=== PATIENT | male | born 1940 | race Caucasian/White ===

== ENCOUNTER 2020-03-15 10:27 | Outpatient (REF) | payer MEDICARE, SELFPAY ==
[2020-03-15 13:13] LABS: Alanine Aminotransferase 28 U/L (0-40); Albumin Level 4.3 g/dL (3.5-5.0); Alkaline Phosphatase 104 U/L (39-117); Anion Gap 17 (12-20); Aspartate Amino Transferase 25 U/L (5-37); Bilirubin Total 1.3 mg/dL (0.0-1.0); Blood Urea Nitrogen 22 mg/dL (9-16); Calcium 8.4 mg/dL (8.4-10.2); Carbon Dioxide 21 mmol/L (22-29); Chloride 106 mmol/L (96-108); Cholesterol 155 mg/dL; Estimated Glomerular Filt Rate > 60; Glucose Fasting 141 mg/dL (60-99); HDL Cholesterol 41 mg/dL; LDL Cholesterol Calculated 94 mg/dl; Potassium 4.1 mmol/l (3.3-5.1); Sodium 140 mmol/L (135-145); Total Protein 6.5 g/dL (6.5-8.0); Triglycerides 103 mg/dL
[2020-03-15 13:15] LABS: Microalbum/Creatinine Ratio Ur 17.4 ug/mg cr
[2020-03-15 13:17] LABS: Estimated Average Glucose 143 mg/dL; Hemoglobin A1c % 6.6 %
== END 2020-03-15 10:28 | disposition home or self-care (01) ==
LOC: HO.MANLR 10:27
PROVIDERS: PCP Internal Medicine; Visit Provider Internal Medicine
DX: E78.00 Pure hypercholesterolemia, unspecified (principal); I10 Essential (primary) hypertension; E11.9 Type 2 diabetes mellitus without complications
CPT/HCPCS: 80053; 80061; 82043; 83036

== ENCOUNTER 2020-07-20 11:31 | Outpatient (REF) | payer MEDICARE, SELFPAY ==
[2020-07-20 14:12] LABS: Estimated Average Glucose 151 mg/dL; Hemoglobin A1c % 6.9 %
== END 2020-07-20 11:32 | disposition home or self-care (01) ==
LOC: HO.MANLR 11:31
PROVIDERS: PCP Internal Medicine; Visit Provider Internal Medicine
DX: E78.00 Pure hypercholesterolemia, unspecified (principal); I10 Essential (primary) hypertension; E11.9 Type 2 diabetes mellitus without complications
CPT/HCPCS: 36415; 83036

== ENCOUNTER 2020-12-06 15:04 | Outpatient (REF) | payer MEDICARE, SELFPAY ==
[2020-12-06 16:55] LABS: Estimated Average Glucose 148 mg/dL; Hemoglobin A1c % 6.8 %
== END 2020-12-06 15:05 | disposition home or self-care (01) ==
LOC: HO.MANLDS 15:04
PROVIDERS: PCP Internal Medicine; Visit Provider Internal Medicine
DX: E78.00 Pure hypercholesterolemia, unspecified (principal); I10 Essential (primary) hypertension; E11.9 Type 2 diabetes mellitus without complications
CPT/HCPCS: 36415; 83036

== ENCOUNTER 2021-04-27 16:01 | Outpatient (REF) | payer MEDICARE, SELFPAY ==
[2021-04-27 18:47] LABS: Estimated Average Glucose 157 mg/dL; Hemoglobin A1c % 7.1 %
== END 2021-04-27 16:02 | disposition home or self-care (01) ==
LOC: HO.MANLDS 16:01
PROVIDERS: PCP Internal Medicine; Visit Provider Internal Medicine
DX: E78.00 Pure hypercholesterolemia, unspecified (principal); I10 Essential (primary) hypertension; E11.9 Type 2 diabetes mellitus without complications
CPT/HCPCS: 36415; 83036

== ENCOUNTER 2021-08-01 15:01 | Outpatient (REF) | payer MEDICARE, SELFPAY ==
[2021-08-01 17:34] LABS: Estimated Average Glucose 148 mg/dL; Hemoglobin A1c % 6.8 %
== END 2021-08-01 15:02 | disposition home or self-care (01) ==
LOC: HO.MANLDS 15:01
PROVIDERS: PCP Internal Medicine; Visit Provider Internal Medicine
DX: E11.9 Type 2 diabetes mellitus without complications (principal)
CPT/HCPCS: 36415; 83036

== ENCOUNTER 2021-12-12 14:37 | Outpatient (REF) | payer MEDICARE, SELFPAY ==
[2021-12-13 05:20] LABS: Estimated Average Glucose 146 mg/dL; Hemoglobin A1c % 6.7 %
== END 2021-12-12 14:38 | disposition home or self-care (01) ==
LOC: HO.MANLDS 14:37
PROVIDERS: Visit Provider Internal Medicine
DX: E11.9 Type 2 diabetes mellitus without complications (principal)
CPT/HCPCS: 36415; 83036

== ENCOUNTER 2022-04-24 14:13 | Outpatient (REF) | payer MEDICARE, SELFPAY ==
[2022-04-24 20:47] LABS: Alanine Aminotransferase 19 U/L (0-40); Albumin Level 4.5 g/dL (3.5-5.0); Alkaline Phosphatase 100 U/L (39-117); Anion Gap 13 (12-20); Aspartate Amino Transferase 23 U/L (5-37); Bilirubin Total 1.4 mg/dL (0.0-1.0); Blood Urea Nitrogen 15 mg/dL (9-16); Calcium 9.5 mg/dL (8.4-10.2); Carbon Dioxide 20 mmol/L (22-29); Chloride 113 mmol/L (96-108); Cholesterol 168 mg/dL; Estimated Glomerular Filt Rate > 60; Glucose Random 56 mg/dL (60-115); HDL Cholesterol 43 mg/dL; LDL Cholesterol Calculated 104 mg/dl; Potassium 4.9 mmol/L (3.3-5.1); Sodium 141 mmol/L (135-145); Total Protein 6.8 g/dL (6.5-8.0); Triglycerides 106 mg/dL
[2022-04-25 08:04] LABS: Estimated Average Glucose 134 mg/dL; Hemoglobin A1c % 6.3 %
== END 2022-04-24 14:14 | disposition home or self-care (01) ==
LOC: HO.MANLDS 14:13
PROVIDERS: Visit Provider Internal Medicine
DX: E11.9 Type 2 diabetes mellitus without complications (principal)
CPT/HCPCS: 36415; 80053; 80061; 83036

== ENCOUNTER 2022-07-24 10:32 | Outpatient (REF) | payer MEDICARE, SELFPAY ==
[2022-07-24 14:17] LABS: Estimated Average Glucose 134 mg/dL; Hemoglobin A1c % 6.3 %
== END 2022-07-24 10:33 | disposition home or self-care (01) ==
LOC: HO.MANLDS 10:32
PROVIDERS: Visit Provider Internal Medicine
DX: E11.9 Type 2 diabetes mellitus without complications (principal)
CPT/HCPCS: 36415; 83036

== ENCOUNTER 2022-11-27 10:59 | Outpatient (REF) | payer MEDICARE, SELFPAY ==
[2022-11-27 14:22] LABS: Estimated Average Glucose 128 mg/dL; Hemoglobin A1c % 6.1 %
[2022-11-27 14:35] LABS: Alanine Aminotransferase 13 U/L (0-40); Albumin Level 4.4 g/dL (3.5-5.0); Alkaline Phosphatase 84 U/L (39-117); Anion Gap 14 (12-20); Aspartate Amino Transferase 18 U/L (5-37); Bilirubin Total 1.3 mg/dL (0.0-1.0); Blood Urea Nitrogen 13 mg/dL (9-16); Calcium 9.5 mg/dL (8.4-10.2); Carbon Dioxide 22 mmol/L (22-29); Chloride 111 mmol/L (96-108); Cholesterol 171 mg/dL; Estimated Glomerular Filt Rate > 60; Glucose Random 63 mg/dL (60-115); HDL Cholesterol 50 mg/dL; LDL Cholesterol Calculated 104 mg/dl; Potassium 4.6 mmol/L (3.3-5.1); Sodium 142 mmol/L (135-145); Total Protein 6.9 g/dL (6.5-8.0); Triglycerides 89 mg/dL
== END 2022-11-27 11:00 | disposition home or self-care (01) ==
LOC: HO.MANLDS 10:59
PROVIDERS: Internal Medicine; Visit Provider Dermatology Procedural Dermatology
DX: E11.9 Type 2 diabetes mellitus without complications (principal)
CPT/HCPCS: 36415; 80053; 80061; 83036

== ENCOUNTER 2023-05-15 10:16 | Outpatient (REF) | payer MEDICARE, SELFPAY ==
[2023-05-15 13:22] LABS: MANUAL DIFF FLAG NO
[2023-05-15 13:30] LABS: Basophils Percent Auto 0.6 % (0-2); Eosinophils Absolute Auto 0.1 X10*3/uL (0.0-0.4); Eosinophils Percent Auto 1.9 % (0-4); Hematocrit 50.9 % (42.0-52.0); Hemoglobin 16.2 g/dl (14.0-18.0); Imm Gran Abs Auto 0.02 X10*3/uL (0.00-0.03); Imm Gran Pct Auto 0.3 % (0.0-0.4); Lymphocytes Percent Auto 31.7 % (20-40); Mean Corpuscular HGB Conc 31.8 g/dl (31.0-36.0); Mean Corpuscular Hemoglobin 30.3 pg (27.0-33.0); Mean Corpuscular Volume 95.1 fL (80.0-98.0); Mean Platelet Volume 11.2 fL (9.4-12.4); Monocytes Absolute Auto 0.4 X10*3/uL (0.1-1.2); Neutrophils Absolute Auto 3.7 x10*3/uL (2.0-8.3); Neutrophils Percent Auto 58.5 % (45-73); Platelet Count 219 X10*3/uL (160-400); Red Blood Count 5.35 X10*6/uL (4.60-5.80); White Blood Count 6.3 X10*3/uL (4.8-10.8)
[2023-05-15 14:00] LABS: Estimated Average Glucose 128 mg/dL; Hemoglobin A1c % 6.1 % (<6.0)
[2023-05-15 14:01] LABS: Alanine Aminotransferase 14 U/L (0-40); Albumin Level 4.3 g/dL (3.5-5.0); Alkaline Phosphatase 89 U/L (39-117); Anion Gap 15 (12-20); Aspartate Amino Transferase 19 U/L (5-37); Bilirubin Total 1.1 mg/dL (0.0-1.0); Blood Urea Nitrogen 14 mg/dL (9-16); Calcium 9.6 mg/dL (8.4-10.2); Carbon Dioxide 25 mmol/L (22-29); Chloride 105 mmol/L (96-108); Cholesterol 181 mg/dL (<200); Estimated Glomerular Filt Rate > 60; Glucose Random 136 mg/dL (60-115); HDL Cholesterol 53 mg/dL (>40); LDL Cholesterol Calculated 109 mg/dL (<100); Potassium 4.6 mmol/L (3.3-5.1); Sodium 140 mmol/L (135-145); Total Protein 7.2 g/dL (6.5-8.0); Triglycerides 98 mg/dL (<150)
[2023-05-15 14:29] LABS: Creatinine Urine 286.89 mg/dL; Microalbum/Creatinine Ratio Ur 36.9 ug/mg cr (<30)
== END 2023-05-15 10:17 | disposition home or self-care (01) ==
LOC: HO.MANLDS 10:16
PROVIDERS: Visit Provider Internal Medicine
DX: E11.9 Type 2 diabetes mellitus without complications (principal)
CPT/HCPCS: 36415; 80053; 80061; 82043; 82570; 83036; 85025

== ENCOUNTER 2023-10-13 22:36 | Inpatient (IN) | payer MEDICARE, SELFPAY ==
--- NOTE | ~2023-10-13 | CT_ITS ---
EXAMINATION: CT angio head neck stroke CLINICAL INFORMATION: Right facial droop, right-sided weakness COMPARISON: CT head same day TECHNIQUE: Test bolus sequences followed by intravenous administration 75 mL of Omnipaque 350. Helical imaging was performed in the axial plane from the mediastinum to the skull vertex. Delayed postcontrast imaging of the head was also performed. The data was processed at the medical technologist hematology's workstation for generation of MIP sequences. Three-dimensional volume rendered reformatted images were also generated at an offline 3-D workstation. Arterial stenoses are measured in accordance with NASCET criteria or similar method if applicable. This CT examination was performed using dose optimization techniques as appropriate, variously including the following: * Automated exposure control * Adjustment of mA and/or kV according to patient size (this includes techniques or standardized protocols for targeted exams where dose is matched to indication/reason for exam; i.e. extremities or head) Use of iterative reconstruction technique DLP: 1501 mGy-cm. FINDINGS: Motion artifact severely limits the exam. CT head: There is no evidence of acute intracranial hemorrhage or territorial infarction. There is no loss of montez to white matter differentiation. No abnormal mass effect or midline shift is seen. No extra-axial fluid collections are identified. There is no abnormal enhancement. No hydrocephalus. The cerebellar tonsils are well positioned. No acute osseous or soft tissue abnormality. The mastoid air cells and visualized portions of the paranasal sinuses are well aerated. CTA neck: 2 vessel aortic arch with common origin of the brachiocephalic and left common carotid artery. The origins of the great vessels are normal. The common carotid arteries are patent. Evaluation of the carotid bifurcations is limited by motion artifact. Calcified plaque is noted at both bifurcations. The cervical internal carotid arteries are normal. The visualized vertebral arteries opacify normally and are of normal caliber. Evaluation of the left vertebral artery is severely limited by motion artifact at multiple levels. Nonvascular: The soft tissues of the neck are unremarkable. The imaged portions of the lungs are clear. Heterogeneous thyroid. Mild multilevel cervical spondylosis. CTA head: Cavernous ICAs: Scattered atherosclerotic calcifications without significant stenosis on either side. A1 segments, anterior communicating artery, and A2 segments: Patent without significant stenosis. M1 segments and major MCA branches: Bilateral M1 segments are patent without significant stenosis. P1, P2 and proximal P3 segments of the payment processor: Patent without significant stenosis. Intracranial vertebral arteries, cerebellar arteries and basilar artery: Patent without significant stenosis. CT/CT angio head neck stroke IMPRESSION: HEAD CT: No acute intracranial hemorrhage or edematous infarction. CTA HEAD/NECK: 1. No high-grade stenosis or proximal occlusion of the vasculature of the head and neck. 2. Evaluation of the cervical arteries is severely limited by motion artifact.
--- NOTE | ~2023-10-13 | XR_ITS ---
EXAMINATION: XR CHEST CLINICAL INFORMATION: Pacemaker. COMPARISON: Chest x-ray 10/13/2023. TECHNIQUE: Frontal view of the chest was obtained. FINDINGS: New left subclavian pacer with leads in the region of the right ventricle and right atrium. The cardiomediastinal silhouette is stable. Hypoexpanded lungs. No consolidation, effusion, or pneumothorax. XR/XR chest 1V IMPRESSION: Left subclavian pacer. No pneumothorax.
--- NOTE | ~2023-10-13 | CT_ITS ---
EXAMINATION: CT HEAD WITHOUT CONTRAST CLINICAL INFORMATION: Headache. Venous sinus thrombosis on recent imaging. COMPARISON: MRI dated 10/14/[address] from 10/13/2023. TECHNIQUE: Contiguous axial imaging was performed from the skullbase to vertex without intravenous administration of contrast. This CT examination was performed using dose optimization techniques as appropriate, variously including the following: *Automated exposure control *Adjustment of mA and/or kV according to patient size (this includes techniques or standardized protocols for targeted exams where dose is matched to indication/reason for exam; i.e. extremities or head) *Use of iterative reconstruction technique DLP: 611 mGy-cm. FINDINGS: There is no evidence of acute intracranial hemorrhage or territorial infarction. No abnormal mass effect or midline shift is seen. No extra-axial fluid collections are identified. Low-attenuation in the central portion of the superior sagittal sinus and right sigmoid venous sinus corresponding to areas of previously reported venous sinus thrombosis. Moderate diffuse brain parenchymal volume loss with ex vacuo dilatation of the ventricles is stable. Chronic white matter microangiopathy again noted. The osseous structures and soft tissues are normal. The mastoid air cells are well aerated. Calcification and soft tissue density in the dependent left sphenoid sinus corresponds to chronic sinus disease, described on prior imaging. Given low T2 signal soft tissue abnormality and intrasinus calcification, an underlying small mycetoma cannot be ruled out. CT/CT head/brain wo IV con IMPRESSION: No acute intracranial hemorrhage or territorial infarction. Partially visualized venous thrombosis, better assessed on prior imaging. Diffuse brain parenchymal volume loss and chronic white matter microangiopathy. Chronic left sphenoid sinus mucosal disease.
--- NOTE | ~2023-10-13 | US_ITS ---
EXAMINATION: US ABDOMEN LIMITED CLINICAL INFORMATION: Elevated bilirubin and alkaline phosphatase. COMPARISON: None available. TECHNIQUE: Real-time imaging of the right upper quadrant abdominal viscera. Technically extremely limited study secondary to body habitus and uncooperative patient. FINDINGS: PANCREAS: Not visualized, obscured by overlying bowel gas. LIVER: The liver is normal in size. The liver contour is normal. There is diffuse increased liver parenchymal echogenicity, consistent with infiltrative hepatocellular disease. No focal hepatic lesion. There is no intrahepatic biliary duct dilatation seen. GALLBLADDER: The gallbladder is physiologically distended with irregular mass like echogenic sludge, favored to represent tumefactive sludge. No wall thickening or pericholecystic fluid. Negative sonographic Chahal sign. COMMON BILE DUCT: Not seen. RIGHT KIDNEY: No hydronephrosis or renal calculi. The kidney measures 9.6 cm in maximum dimension. Middle pole exophytic anechoic cyst measuring 1 x 0.8 x 1 cm with a coarse peripheral calcification. Additional cysts seen. FREE FLUID: None. US/US abdomen limited IMPRESSION: 1. Echogenic mass like material within the gallbladder, favored to represent tumefactive sludge. No sonographic evidence of acute cholecystitis. 2. 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
--- NOTE | ~2023-10-13 | CT_ITS ---
EXAMINATION: CT HEAD WITHOUT CONTRAST (STROKE PROTOCOL) CLINICAL INFORMATION: Stroke protocol. Right facial droop, right-sided weakness rule out COMPARISON: None available. TECHNIQUE: Contiguous axial imaging was performed from the skull base to vertex without intravenous administration of contrast. This CT examination was performed using dose optimization techniques as appropriate, variously including the following: *Automated exposure control *Adjustment of mA and/or kV according to patient size (this includes techniques or standardized protocols for targeted exams where dose is matched to indication/reason for exam; i.e. extremities or head) *Use of iterative reconstruction technique DLP: 1372 mGy-cm FINDINGS: Evaluation is limited by motion artifact. There is no evidence of acute intracranial hemorrhage or territorial infarction. Thomas to white matter differentiation is well preserved. No abnormal mass effect or midline shift is seen. No extra-axial fluid collections are identified. No hydrocephalus. Left basal ganglia lacunar infarct. Proportional prominence of the ventricles and sulcal spaces is consistent with moderate volume loss. Patchy periventricular and deep white matter hypoattenuation is consistent with mild small vessel ischemic changes. The cerebellar tonsils are well positioned. No acute osseous or soft tissue abnormality. Bilateral lens extraction. The mastoid air cells and visualized portions of the paranasal sinuses are well aerated. CT/CT head for stroke IMPRESSION: 1. Evaluation is limited by motion artifact. 2. No acute intracranial hemorrhage or territorial infarction. These results were discussed with Kuldeep Noe MD by telephone on 10/13/2023 at 11:02 PM and it was ascertained that the content of the report was understood at the time of direct communication.
--- NOTE | ~2023-10-13 | XR_ITS ---
EXAMINATION: XR PORTABLE CHEST CLINICAL INFORMATION: Altered mental status. Rule out pneumonia. COMPARISON: None. TECHNIQUE: AP portable upright view of the chest FINDINGS: Lung volumes are low. EKG leads overlie the chest. Minimal dependent atelectasis. No consolidation, pneumothorax, or pleural effusion. Cardiac and mediastinal contours are normal. Pulmonary vasculature is unremarkable. No acute osseous findings. Bones are osteopenic. Degenerative disc disease is present in the thoracic spine. Osteoarthritis is present in the acromioclavicular and glenohumeral joints. XR/XR chest 1V IMPRESSION: Low lung volumes with mild dependent atelectasis. No acute pulmonary findings.
--- NOTE | ~2023-10-13 | FL_ITS ---
EXAMINATION: XR FLUOROSCOPY WITH IMAGES CLINICAL INFORMATION: Pacemaker insertion COMPARISON: PA chest 10/13/2023, 10/19/2023 TECHNIQUE: Fluoroscopy Supervised By: Dr. Itz Moran Fluoroscopy Time: 8.9 minutes. Cumulative Dose: 95.4 mGy. DAP: 25.6 Gycm2. Images: 1. FINDINGS: A single frontal image of the heart demonstrate the tip of leads in the region of the right atrium and right ventricle. Please see procedure note for full details. FL/FL guidance in OR IMPRESSION: Fluoroscopic guidance was provided for pacemaker insertion. Please see procedure note for full details.
--- NOTE | ~2023-10-13 | MR_ITS ---
MR BRAIN WITHOUT CONTRAST CLINICAL INFORMATION: Stroke symptoms. COMPARISON: CTA head and neck and head CT 10/13/2023. TECHNIQUE: MRI of the brain was obtained using routine sequences without contrast. FINDINGS: Possible small acute infarct involving the left precentral gyrus near the hand region. No mass effect and no hemorrhagic transformation. There is no hydrocephalus, extra-axial surface collection, or herniation. No parenchymal signal abnormality. Extensive cerebral venous thrombosis involving the superior sagittal sinus, the torcula, the right transverse sinus, the medial most aspect of the left transverse sinus, the right sigmoid sinus, the right jugular bulb, and extending into the upper right cervical internal jugular vein again noted as discussed in detail on the 10/13/2023 CTA. Better seen on this MRI is an additional thrombosed cortical vein at the high right parietal convexity. 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 The midline structures are normal. The cerebellar tonsils are normally positioned. The cerebellum and brainstem are normal. The craniocervical junction is normal. Osseous marrow signal intensity is homogenous. The visualized soft tissues are unremarkable. MR/MR head/brain wo con IMPRESSION: - Possible small acute infarct involving the left precentral gyrus near the hand region. No mass effect and no hemorrhagic transformation. - Extensive cerebral venous thrombosis involving the superior sagittal sinus, the torcula, the right transverse sinus, the medial most aspect of the left transverse sinus, the right sigmoid sinus, the right jugular bulb, and extending into the upper right cervical internal jugular vein again noted as discussed in detail on the 10/13/2023 CTA. Better seen on this MRI is an additional thrombosed cortical vein at the high right parietal convexity. 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 - There is global cerebral volume loss and there is moderate chronic microangiopathy.
--- NOTE | 2023-10-13 22:43 | ECG_ITS ---
Test Reason : STROKE Blood Pressure : / mmHG Vent. Rate : 113 BPM Atrial Rate : 000 BPM P-R Int : 000 ms QRS Dur : 068 ms QT Int : 318 ms P-R-T Axes : 000 063 064 degrees QTc Int : 436 ms Atrial fibrillation with rapid ventricular response ST & T wave abnormality, consider anterolateral ischemia Abnormal ECG No previous ECGs available Referred By: Kuldeep Noe Electronically Signed By:RONAK HADDAD
--- NOTE | 2023-10-13 23:02 | ED.NEUROSD ---
HPI - Neuro Symptoms/Deficit General Stated Complaint: stroke alert Time Seen by Provider: 10/13/23 22:41 Source: patient and EMS Mode of arrival: EMS Limitations: other (Dysarthric speech) History of Present Illness ED Provider: Dr. Kuldeep Noe HPI Narrative: 83-year-old male with history of diabetes mellitus, hypertension, pulmonary emboli on warfarin, gallbladder disease who presents emergency department for altered level of consciousness. The information comes from the patient's daughter Suze and his granddaughter Rachel who are here in the emergency department with the patient. The patient was seen yesterday at [facility] for altered mental status. Following information was obtained from his after visit summary: He was hypoglycemic, there was no urinary tract infection, ultrasound showed stones and sludge in the gallbladder but no evidence for no sonographic evidence for acute cholecystitis. The family states that he got home from [facility] emergency department at around 20:00 hours yesterday and this is his last well-known time. Patient may have gotten up at 02:00 hours this morning to urinate but otherwise stayed in bed all day and was very somnolent. The patient lives with his son who was not here in the emergency department. Patient was apparently on arousable so the son called an ambulance paramedics found the patient have a glucose of 45. Patient was given glucagon 1 mg IM. An IV was established he was given a bolus of D10 IV. On presentation to the emergency department the patient is awake, he has dysarthric speech, right facial droop and right upper and lower extremity weakness which is new. Patient was sent directly to CT scan for stroke protocol, CT scan head without contrast and CT angiogram head and neck. Related Data Allergies Allergy/AdvReac Type Severity Reaction Status Date / Time Unable to Assess Allergy Verified 10/13/23 23:43 Review of Systems Review of Systems: Yes all other systems are reviewed and are negative [facility] Past Medical History [facility] Narrative: Social history: The patient lives at home with his son. According to his family he is normally awake alert has normal speech with no neurologic deficits. Physical Exam Vital Signs: Exam: General: Patient is awake, he has dysarthric speech but it is comprehensible, has an obvious right facial droop and right upper and lower extremity weakness Head: Normocephalic, atraumatic EENT: PERRL, Lids normal, sclera normal, conjunctiva normal, nose normal , ears normal, throat without erythema or exudates Neck: Supple, no adenopathy Lung: breath sounds symmetric, no wheezing, rales or rhonchi Chest: symmetric movement, nontender Heart: regular rate and rhythm, normal S1, S2 no murmurs or rubs Abdomen: Moderate suprapubic tenderness, distended bladder, no right upper quadrant tenderness, normoactive bowel sounds, no rebound Back: no vertebral tenderness, no CVAT Neuro: Awake, dysarthric speech, right facial droop, right upper and lower extremity weakness with minimal movement against gravity Medical Decision Making Medical Decision Making MDM Narrative: 83-year-old male with history of diabetes mellitus, hypertension, pulmonary emboli on warfarin, gallbladder disease who presents emergency department for altered level of consciousness. The patient was seen yesterday [facility] for hypoglycemia and had a right upper quadrant ultrasound which revealed sludge and stones but no evidence for cholecystitis family states the patient needs his gallbladder out and has been having difficulty with his gallbladder since 09/23/2023. Patient's last well-known time was 20:00 hours last night. Throughout the day today he was sleeping and never got out of bed. Prior to transport to the emergency department he was unarousable and paramedics found his glucose to be 45, he was given glucagon and D10 IV. The patient is awake, oriented to person and place, he has dysarthric speech, right facial droop, right upper extremity and right lower extremity which, according to the family, is new. Vital signs revealed an elevated heart rate of 114 otherwise unremarkable. Differential diagnosis: ?Includes but is not limited to stroke, cerebral bleed, hypoglycemia, electrolyte abnormalities, anemia Following evaluation was ordered: CBC, BMP, liver panel, magnesium, PT/INR, PTT, TSH, troponin, ethanol, urinalysis, CT head, CT angiogram head and neck, chest x-ray one view, EKG Course: 00:14 My interpretation patient's laboratory evaluation as follows: WBC elevated 13,000 with a left shift 88 neutrophils and 6 lymphocytes. The patient's INR is 1.3 which is subtherapeutic-he is on warfarin. Patient's 12 EKG is consistent with atrial fibrillation with a rapid ventricular response of 113, he does have inverted T-waves V3 through V6 with no old EKG for comparison One-view chest x-ray was unremarkable. CT scan of the brain revealed no acute findings and I did discuss this with the radiologist. This patient is not a thrombolytics candidate since his last well-known time was greater than 4 hours and he is also on warfarin. Also the patient's last well-known time was 20:00 hours yesterday and this is outside of the 24 hour window for clot retrieval. I did discuss admission with the covering hospitalist, Dr. Suazo. Admission/Observation Consideration of admission/observation: Escalation of care including admission/observation considered Consult Healthcare Provider Management of the patient was discussed with: Hospitalist Independent Interpretation I performed an independent interpretation of an: EKG Interpretation: My independent interpretation patient's 12 EKG done at 23:47 hours is as follows: Atrial fibrillation with a ventricular rate of 113, no ST segment elevation, no ST segment depression, inverted T-waves V3 through V6-no old EKG for comparison Radiology Impression Discussion of test interpretation with radiology: I have reviewed the radiologist's reading. Radiologist Impression: CT head for stroke IMPRESSION: 1. Evaluation is limited by motion artifact. 2. No acute intracranial hemorrhage or territorial infarction. These results were discussed with Kuldeep Noe MD by telephone on 10/13/2023 at 11:02 PM and it was ascertained that the content of the report was understood at the time of direct communication. Dictated By: Kavita Barnard Independent Historian Clinical information obtained from an independent historian. History obtained from or confirmed by: Other (Daughter and granddaughter) External Record Review External record reviewed: Outpatient record Chronic Conditions Patient?s care impacted by: Diabetes and Hypertension Critical Care Time Critical Care Time Critical Care Time: Yes Total Critical Care Time: 45 Attestation: Critical Care: The patient was critically ill with a high probability of imminent or life threatening deterioration. I spent greater than 30 minutes of discontinuous time evaluating the patient,delivering critical care at the bedside, discussing and evaluating pertinent data with consultants. Critical care time does not include time spent performing separately billable procedures or teaching. Total time spent performing critical care was 45 minutes. Discharge Plan Discharge Patient Disposition: Admitted As Inpatient Print Language: Setswana
[2023-10-13 23:41] VITALS: BP 139/86; PULSE 114; RESP 20; TEMP 36.5; O2SAT 100; BMI 23.7
[2023-10-13 23:44] LABS: MANUAL DIFF FLAG NO
[2023-10-13 23:48] LABS: Basophils Percent Auto 0.2 % (0-2); Eosinophils Percent Auto 0.1 % (0-4); Hematocrit 47.6 % (42.0-52.0); Hemoglobin 16.2 g/dl (14.0-18.0); Imm Gran Abs Auto 0.05 X10*3/uL (0.00-0.03); Imm Gran Pct Auto 0.4 % (0.0-0.4); Lymphocytes Absolute Auto 0.8 X10*3/uL (1.2-4.9); Mean Corpuscular Hemoglobin 30.9 pg (27.0-33.0); Mean Corpuscular Volume 90.8 fL (80.0-98.0); Mean Platelet Volume 10.7 fL (9.4-12.4); Monocytes Absolute Auto 0.6 X10*3/uL (0.1-1.2); Monocytes Percent Auto 4.6 % (2-11); Neutrophils Absolute Auto 11.5 x10*3/uL (2.0-8.3); Neutrophils Percent Auto 88.7 % (45-73); Platelet Count 282 X10*3/uL (160-400); Red Blood Count 5.24 X10*6/uL (4.60-5.80); Red Cell Distribution Width 13.4 % (11.0-16.0)
[2023-10-13 23:53] LABS: INTERNATIONAL NORM RATIO 1.3 (0.9-1.1); Prothrombin Time 15.9 SEC (11.1-13.3)
[2023-10-13 23:56] LABS: Partial Thromboplastin Time 30.5 SEC (26.0-36.8)
[2023-10-13 23:58] LABS: Stroke Lab Use COMPLETE
[2023-10-14] VITALS (8 sets, daily range): BP systolic 110–161; BP diastolic 67–87; PULSE 58–108; RESP 18–20; TEMP 36.1–37.5; O2SAT 95–99; BMI 24.3
[2023-10-14 00:04] LABS: Glucose, Whole Blood 84 mg/dL (60-115)
[2023-10-14 00:19] LABS: Troponin-I High Sensitivity 10.9 ng/L (<3.5-35.0)
[2023-10-14 00:25] LABS: Alanine Aminotransferase 23 U/L (0-40); Albumin Level 4.1 g/dL (3.5-5.0); Alkaline Phosphatase 131 U/L (39-117); Anion Gap 16 (12-20); Aspartate Amino Transferase 28 U/L (5-37); Bilirubin Direct 0.6 mg/dL (0.0-0.5); Bilirubin Total 1.6 mg/dL (0.0-1.0); Blood Urea Nitrogen 25 mg/dL (9-16); Calcium 9.7 mg/dL (8.4-10.2); Carbon Dioxide 18 mmol/L (22-29); Chloride 107 mmol/L (96-108); Creatinine Clr Calc Pharmacy 43.1; Estimated Glomerular Filt Rate > 60; Ethanol < 10 mg/dL; Glucose Random 103 mg/dL (60-115); Magnesium 2.2 mg/dL (1.6-2.6); Potassium 4.6 mmol/L (3.3-5.1); Sodium 136 mmol/L (135-145)
[2023-10-14] MEDS: 0.9 % Sodium Chloride 1,000 ML 999 ML IV (00:27)
[2023-10-14 00:35] LABS: Appearance Urine Clear; Color Urine Yellow; Glucose Urine UA Negative (Negative); Leukocyte Esterase Urine Negative (Negative); Nitrite Urine Negative (Negative); PH 6.5 (5.0-9.0); Specific Gravity - Urine >= 1.030 (1.005-1.025); UMIC TRIGGER UACC YES; Urine Blood Small (1+) (Negative); Urine Ketones 15 mg/dL (Negative); Urine Protein Trace mg/dL (Neg-Trace)
[2023-10-14 00:40] LABS: Thyroid Stimulating Hormone < 0.01 uIU/mL (0.32-4.0)
[2023-10-14 00:42] LABS: Bacteria Urine None Seen (None Seen); Hyaline Casts Urine 0-2 /LPF (0-2); Squamous Epithelial Cell Urine 0-2 /HPF (0-2); WBC Urine 0-5 /HPF (0-5)
[2023-10-14 02:01] LABS: Glucose, Whole Blood 73 mg/dL (60-115)
[2023-10-14] MEDS: LORazepam 2 MG/ML VIAL 1 MG IVPUSH (02:09)
[2023-10-14] MEDS: Dextrose 5 % and 0.9 % NaCl 1,000 ML 80 ML IVCONT (02:16)
[2023-10-14 03:31] LABS: Glucose, Whole Blood 88 mg/dL (60-115)
[2023-10-14] MEDS: Valproic Acid (as Sodium Salt) 250 MG in Dextrose 5 % 50 ML 52.5 MG IV (04:33)
[2023-10-14] MEDS: Pantoprazole Sodium 40 MG/10 ML VIAL IVPUSH (05:23)
--- NOTE | 2023-10-14 05:54 | PM.IMHP ---
History of Present Illness Date of Service: 10/14/23 Attending physician on admission: Placido Howe Chief Complaint: Right sided weakness, speech difficulty Ferny Barron is 83 years old man with past medical history significant for type 2 diabetes mellitus on insulin + glipizide pulmonary embolism on Xarelto and essential hypertension was brought to the emergency department via EMS as a stroke alert. Patient was found have a glucose of 45 received treatment with deep 10 and glucagon. He was noted to have right facial droop and right-sided weakness. Family members were at bedside: Granddaughter and daughter. They provided most of the HPI. They stated that the last time he was seen normal was Sunday at 8 pm. They said that he was just at [facility] for altered mental status and found to be hypoglycemic. He was having gastrointestinal symptoms and has not been eating well. He was found to have sludge in his gallbladder without cholecystitis and was discharged have follow-up with surgery as an outpatient. After he arrived to his home he went to bed and stayed there all day. The patient has no history of prior strokes. On evaluation, the patient's seems to be very confused and restless. While performing physical examination the patient remained for several minutes with a blank stare, barely responsive and stiff. Blood glucose stat was obtained = 73 During this episode I noted that his heart rate increases to the 120 sustaining. In the ED, low-grade sinus tachycardia and hypertension was noted. Blood pressure was 147/84. Blood workup is remarkable for leukocytosis of 13,000. Hemoglobin and platelets are normal. INR is 1.3. Blood workup was remarkable for low bicarb of 18. No other electrolyte imbalances. BUN is 25 and creatinine 1.08. TSH less than 0.01. ECG showed atrial fibrillation with rapid ventricular response, HR 113 bpm. CXR showed low lung volumes with mild dependent atelectasis and no acute pulmonary changes. His CT scan showed no acute intracranial hemorrhage or territorial infarction. Head and neck CTA showed no high-grade stenosis or proximal occlusion of the vasculature of the head and neck, evaluation of cervical artery separately limited by motion artifact. ED tx: NS 1 L bolus. Ativan 1 mg IV and glucose IV given stat. Review of Systems Review of Systems: Yes Unobtainable due to mental status [facility] Medical History (Updated 10/14/23 @ 07:26 by Palcido Howe MD) Essential hypertension History of pulmonary embolism Gallbladder sludge Social History Household Members: Family Household Members Other:: Son Housing: Condominium Do you presently have visiting nurse or other home services: No Patient Tobacco Use Status: Never used Tobacco Use of substances other than those prescribed or required for medical reasons: No Currently Displaying Signs/Symptoms of Drug Intoxication Withdrawal: No Have you been hit, kicked, punched, or otherwise hurt by someone within the past year? If so, by whom?: No Do you feel safe in your current relationship?: No Current Relationship Is there a partner from a previous relationship who is making you feel unsafe now?: No Are you made to feel afraid or neglected: No Advance Directives: Yes Advance Directives Information Provided: No Advance Directives on File: No Advance Directives Date on File: 10/13/23 Do you have a plan to hurt others: No Plan Recently lost weight without trying: Unsure Eating poorly because of decreased appetite: Yes Nutrition Risks: Difficulty swallowing Meds Allergies Allergy/AdvReac Type Severity Reaction Status Date / Time Penicillins Allergy Unknown Verified 10/14/23 02:10 Active Medications: Current Medications Glucose (Glucose Gel 15 Gm Gel..Gram.) 15 gm PO Q15M PRN; Protocol PRN Reason: per Hypoglycemia Standing Ord. Dextrose/Sodium Chloride (D5ns) 1,000 mls @ 80 mls/hr IVCONT .[id number] [facility] Last Admin: 10/14/23 02:16 Dose: 80 mls/hr Dextrose (D10) 250 mls @ 750 mls/hr IV Q15M PRN; Protocol PRN Reason: per Hypoglycemia Standing Ord. Pantoprazole Sodium (Pantoprazole Sodium 40 Mg/10 Ml Vial) 40 mg IVPUSH DAILY@0630 [facility] Last Admin: 10/14/23 05:23 Dose: 40 mg Rivaroxaban (Rivaroxaban 10 Mg Tablet) 10 mg PO DAILY [facility] Sodium Chloride (0.9 % Sodium Chloride Flush 3 Ml Syringe) 3 ml IVFLUSH QSHIFT [facility] Home Medications ?Medication ?Instructions ?Recorded ?Confirmed ?Last Taken ?Type amlodipine 10 mg tablet 10 mg PO DAILY 10/14/23 Unknown History fentanyl 100 mcg/hr transdermal 1 patch topical Q3D 10/14/23 Unknown History patch fentanyl 50 mcg/hr transdermal 1 patch topical Q3D 10/14/23 Unknown History patch glipizide 10 mg tablet 10 mg PO DAILY 10/14/23 Unknown History insulin glargine 100 unit/mL (3 30 unit subcut DAILY 10/14/23 Unknown History mL) subcutaneous pen (Basaglar KwikPen U-100 Insulin) lisinopril 10 mg tablet 10 mg PO DAILY 10/14/23 Unknown History rivaroxaban 10 mg tablet (Xarelto) 10 mg PO DAILY 10/14/23 Unknown History Physical Exam Vital Signs and Narrative: Vital Signs: Last Vital Signs Temp 97.7 F 10/14/23 03:45 Pulse 100 10/14/23 03:45 Resp 18 10/14/23 03:45 BP 161/86 H 10/14/23 03:45 Pulse Ox 98 10/14/23 03:45 O2 Del Method Room Air 10/14/23 03:45 BMI result Body Mass Index 23.7 Constitutional - Confused and restless. Acutely ill appearance. HEENT - PERRLA, EOMI. Dry oral mucosa. Heart - Irregular rhythm. Tachycardia Lungs - Normal lung expansion, poor respiratory effort, no respiratory distress. Decreased breath at bases. No crackles, rhonchi or wheezing. Abdomen - NT / ND; +BS; No rebound or guarding Extremities - no calf tenderness bilaterally, no swelling Musculoskeletal - Normal inspection, normal ROM Skin - Warm/Dry Neurological - lethargic. Confused. Restless. Right facial droop. Right-sided hemiparesis. Slurred speech Psychological - Restless. Results Labs 10/13/23 23:37 10/13/23 23:37 Labs: Laboratory Results - last 24 hr 10/13/23 10/14/23 10/14/23 23:37 00:00 00:26 MCV 90.8 MCH 30.9 MCHC 34.0 RDW 13.4 Plt Count 282 D MPV 10.7 Immature Gran % (Auto) 0.4 Neut % (Auto) 88.7 H Lymph % (Auto) 6.0 L Boyle % (Auto) 4.6 Eos % (Auto) 0.1 Baso % (Auto) 0.2 Lymph # (Auto) 0.8 L Boyle # (Auto) 0.6 Eos # (Auto) 0.0 Baso # (Auto) 0.0 Abs Immat Gran (auto) 0.05 H Absolute Neuts (auto) 11.5 H Absolute Nucleated RBC 0.000 Nucleated RBC % (auto) 0.0 PT 15.9 H INR 1.3 H APTT 30.5 Anion Gap 16 Estim Creat Clear Calc 43.1 Estimated GFR > 60 POC Glucose 84 Random Glucose 103 Calcium 9.7 Magnesium 2.2 Total Bilirubin 1.6 H Direct Bilirubin 0.6 H AST 28 ALT 23 Alkaline Phosphatase 131 H Total Creatine Kinase 367 H Troponin I High Sens 10.9 Total Protein 7.0 Albumin 4.1 TSH < 0.01 L Urine Color Yellow Urine Appearance Clear Urine pH 6.5 Ur Specific [place] >= 1.030 H Urine Protein Trace Urine Glucose (UA) Negative Urine Ketones 15 Urine Blood Small (1+) H Urine Nitrite Negative Ur Leukocyte Esterase Negative Urine RBC 11-20 H Urine WBC 0-5 Ur Squamous Epith Cells 0-2 Urine Bacteria None Seen Hyaline Casts 0-2 Ethyl Alcohol < 10 10/14/23 10/14/23 01:57 03:24 MCV MCH MCHC RDW Plt Count MPV Immature Gran % (Auto) Neut % (Auto) Lymph % (Auto) Boyle % (Auto) Eos % (Auto) Baso % (Auto) Lymph # (Auto) Boyle # (Auto) Eos # (Auto) Baso # (Auto) Abs Immat Gran (auto) Absolute Neuts (auto) Absolute Nucleated RBC Nucleated RBC % (auto) PT INR APTT Anion Gap Estim Creat Clear Calc Estimated GFR POC Glucose 73 88 Random Glucose Calcium Magnesium Total Bilirubin Direct Bilirubin AST ALT Alkaline Phosphatase Total Creatine Kinase Troponin I High Sens Total Protein Albumin TSH Urine Color Urine Appearance Urine pH Ur Specific [place] Urine Protein Urine Glucose (UA) Urine Ketones Urine Blood Urine Nitrite Ur Leukocyte Esterase Urine RBC Urine WBC Ur Squamous Epith Cells Urine Bacteria Hyaline Casts Ethyl Alcohol Imaging Radiologist's Impressions: Impressions Head CT 10/13/23 22:52 IMPRESSION: 1. Evaluation is limited by motion artifact. 2. No acute intracranial hemorrhage or territorial infarction. These results were discussed with Kuldeep Noe MD by telephone on 10/13/2023 at 11:02 PM and it was ascertained that the content of the report was understood at the time of direct communication. Head/Neck CTA 10/13/23 23:05 IMPRESSION: HEAD CT: No acute intracranial hemorrhage or edematous infarction. CTA HEAD/NECK: 1. No high-grade stenosis or proximal occlusion of the vasculature of the head and neck. 2. Evaluation of the cervical arteries is severely limited by motion artifact. Chest X-Ray 10/13/23 23:32 IMPRESSION: Low lung volumes with mild dependent atelectasis. No acute pulmonary findings. Assessment and Plan (1) Urinary retention: Status: Acute (2) Low TSH level: Status: Acute (3) Atrial fibrillation with rapid ventricular response: Status: Acute (4) Hypoglycemia: Status: Acute (5) Stroke: Qualifiers: CVA mechanism: unspecified Qualified Code(s): I63.9 - Cerebral infarction, unspecified Status: Acute Plan Ferny Barron is 83 y/o man admitted with: Right-sided weakness likely acute stroke. No candidate for tPA or interventions the patient is on Xarelto and symptoms started over 24 hr. Admit to hospitalist service. Aspiration and fall precautions. Telemetry. Swallow evaluation Continue Xarelto. Start treatment with high-intensity statin Neurochecks every 4 hours. Obtain TTE with bubble study. Check brain MRI. Neurology consult. Seizure activity, tonic. Valproic acid 250 mg IV. Seizure precautions. Neurology consult Hypoglycemia likely secondary to insulin and glipizide in the setting of poor p.o. intake. Start IV fluid with D5. Hold insulin and glipizide. Continue to monitor blood glucose every 4 hours. Atrial fibrillation with rapid ventricular response, new onset. 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 Continue Xarelto. Start metoprolol 2.5 mg IV q.4 hours. Check TTE. Low TSH, suspecting hyperthyroidism. Check free T4 stat. Metoprolol IV started. To consider start methimazole if free T4 is elevated. Urinary retention. s/p indwelling urinary catheter insertion by ED. Elevated AST and bilirubin. Recent diagnosis of gallbladder sludge. Check abdominal US. Continue to monitor LFTs. History of pulmonary embolism. Continue Xarelto. Code status: Full DVT prophylaxis: Xarelto Patient will need hospitalization for at least 2 midnights for stroke management seizure close neurological monitoring, glucose checks, antiseizure medication and evaluation by subspecialty. Quality Stroke Does the patient have a stroke diagnosis?: Yes Reason for No Anti-thrombotic by Day Two: N/A - Med Ordered VTE Prior VTE?: Yes VTE Risk Level:: Medical - moderate - high VTE Device Contraindication: Treatment Not Indicated VTE Drug Contraindication: N/A - Med Ordered
[2023-10-14] MEDS: Metoprolol Tartrate 2.5 MG in 0.9 % Sodium Chloride 50 ML 210 MG IV (06:43)
[2023-10-14 06:49] LABS: Free T4 (Free Thyroxine) 1.63 ng/dL (0.71-1.85)
[2023-10-14 06:57] LABS: Glucose, Whole Blood 54 mg/dL (60-115)
[2023-10-14] MEDS: Dextrose 10 % 250 ML 750 ML IV (07:02)
[2023-10-14 07:38] LABS: Glucose, Whole Blood 115 mg/dL (60-115)
[2023-10-14 07:47] LABS: Lipase 24 U/L (8-78)
[2023-10-14 07:49] LABS: Anion Gap 14 (12-20); Blood Urea Nitrogen 21 mg/dL (9-16); Calcium 9.2 mg/dL (8.4-10.2); Carbon Dioxide 16 mmol/L (22-29); Chloride 114 mmol/L (96-108); Creatinine Clr Calc Pharmacy 58.2; Estimated Glomerular Filt Rate > 60; Potassium 4.5 mmol/L (3.3-5.1); Sodium 139 mmol/L (135-145)
[2023-10-14 07:55] LABS: Troponin-I High Sensitivity 16.6 ng/L (<3.5-35.0)
[2023-10-14 08:25] LABS: Estimated Average Glucose 137 mg/dL; Hemoglobin A1c % 6.4 % (<6.0)
[2023-10-14 08:26] LABS: Glucose Random 50 mg/dL (60-115)
[2023-10-14] MEDS: Metoprolol Tartrate 5 MG/5 ML VIAL 2.5 MG IVPUSH (08:35)
[2023-10-14] MEDS: Dextrose 10 % 1,000 ML 75 ML IVCONT (08:35)
--- NOTE | 2023-10-14 08:39 | PHA.MEDREC ---
Pharmacy Consult ? Medication Reconciliation Pharmacy has completed the medication reconciliation. Spoke to Radha to confirm meds ([phone]).
--- NOTE | 2023-10-14 09:34 | MHC.CM.PN ---
IMM 10/14/23, sent to primary contact: chapis Garcia. CM contacted Radha to obtain information on pt. due to pt.'s being confused at this time. He lives with his son, they just completed a HCP at [facility], CM will call to obtain a copy. PCP is Dr. Perkins. Pt does not have home health services, [facility] just made a referral that family expected to hear from on Sunday for some assistance in the home. Pt. uses a walker, which is new to him. Family to provide transport home at [place]. DCP: home with services. CM to follow for DC needs.
[2023-10-14 10:03] LABS: Glucose, Whole Blood 111 mg/dL (60-115)
[2023-10-14 11:14] LABS: Influenza A PCR NEGATIVE (Negative); Influenza B PCR NEGATIVE (Negative); Resp Syncy Virus RNA Qual PCR NEGATIVE (Negative); SARS COV2 PCR INHOUSE NEGATIVE (Negative)
--- NOTE | 2023-10-14 11:19 | MHC.CM.PN ---
Addendum entered by Payton Higgins 10/14/23 16:21: HCP received, names Ferny Barron Jr., uploaded to chart. Original Note: HCP 09/26/2023 per [facility] Community Development Officer. She will fax to case management today.
[2023-10-14 11:51] LABS: Basophils Percent Auto 0.5 % (0-2); Eosinophils Percent Auto 0.1 % (0-4); Hematocrit 45.3 % (42.0-52.0); Hemoglobin 15.2 g/dl (14.0-18.0); Imm Gran Abs Auto 0.05 X10*3/uL (0.00-0.03); Imm Gran Pct Auto 0.6 % (0.0-0.4); Lymphocytes Absolute Auto 1.7 X10*3/uL (1.2-4.9); Lymphocytes Percent Auto 21.6 % (20-40); Mean Corpuscular HGB Conc 33.6 g/dl (31.0-36.0); Mean Corpuscular Hemoglobin 31.2 pg (27.0-33.0); Mean Platelet Volume 10.8 fL (9.4-12.4); Monocytes Absolute Auto 0.7 X10*3/uL (0.1-1.2); Monocytes Percent Auto 8.7 % (2-11); Neutrophils Absolute Auto 5.3 x10*3/uL (2.0-8.3); Neutrophils Percent Auto 68.5 % (45-73); Platelet Count 218 X10*3/uL (160-400); Red Blood Count 4.87 X10*6/uL (4.60-5.80); Red Cell Distribution Width 13.5 % (11.0-16.0); White Blood Count 7.8 X10*3/uL (4.8-10.8)
[2023-10-14 11:57] LABS: Glucose, Whole Blood 128 mg/dL (60-115)
[2023-10-14 12:00] LABS: INTERNATIONAL NORM RATIO 1.3 (0.9-1.1); Prothrombin Time 15.4 SEC (11.1-13.3)
[2023-10-14 12:03] LABS: PTT Heparin Drip 28.9 SEC (53-77.9)
[2023-10-14] MEDS: levETIRAcetam in NaCl (iso-os) 500 MG/100 ML PIGGYBACK 400 MG IV ×2 (12:05→22:38)
--- NOTE | 2023-10-14 12:05 | P.CNNE_ITS ---
History of Present Illness Data of Consult Service Date: 10/14/23 Primary Care Provider: Emily Perkins MD [facility] Reason for consult: Seizure 83 years old man with underlying history of atrial fibrillation and pulmonary embolism on anticoagulation, according to family taking on regular basis, recently admitted in [facility] or [facility] for change in mental status, came to this hospital with new onset of facial asymmetry and while in emergency room had a seizure. He also complain of headache but when I asked him how long he has been having headache question emily he stated that as long as he was living. There was no sign of any recent trauma fever or chills. Review of Systems 2 Review of Systems: No recent cold or flu-like illness PMFSH Past Medical History Medical History (Updated 10/14/23 @ 12:10 by David Crawford MD) Essential hypertension History of pulmonary embolism Gallbladder sludge Social History Social History Household Members: Family Household Members Other:: Son [facility] Do you presently have visiting nurse or other home services: No Patient Tobacco Use Status: Never used Tobacco Use of substances other than those prescribed or required for medical reasons: No Currently Displaying Signs/Symptoms of Drug Intoxication Withdrawal: No Have you been hit, kicked, punched, or otherwise hurt by someone within the past year? If so, by whom?: No Do you feel safe in your current relationship?: No Current Relationship Is there a partner from a previous relationship who is making you feel unsafe now?: No Are you made to feel afraid or neglected: No Advance Directives: Yes Advance Directives Information Provided: No Advance Directives on File: No Advance Directives Date on File: 10/13/23 Do you have a plan to hurt others: No Plan Recently lost weight without trying: Unsure Eating poorly because of decreased appetite: Yes Nutrition Risks: Difficulty swallowing service: No Meds Allergies Allergy/AdvReac Type Severity Reaction Status Date / Time Penicillins Allergy Unknown Verified 10/14/23 02:10 Active Medications: Current Medications Atorvastatin Calcium (Atorvastatin Calcium 80 Mg Tablet) 80 mg PO DAILY [facility] Last Admin: 10/14/23 08:13 Dose: Not Given Glucose (Glucose Gel 15 Gm Gel..Gram.) 15 gm PO Q15M PRN; Protocol PRN Reason: per Hypoglycemia Standing Ord. Heparin Sodium (Porcine) (Heparin Sodium,Porcine 5,000 Unit/Ml Vial) 2,500 unit 40 unit/kg (2500 unit) IVPUSH PROTOCOL BOLUS PRN; Protocol PRN Reason: 40 unit/kg - Heparin Protocol Heparin Sodium (Porcine) (Heparin Sodium,Porcine 5,000 Unit/Ml Vial) 5,000 unit 80 unit/kg (5000 unit) IVPUSH PROTOCOL BOLUS PRN; Protocol PRN Reason: 80 unit/kg - Heparin Protocol Dextrose (D10) 250 mls @ 750 mls/hr IV Q15M PRN; Protocol PRN Reason: per Hypoglycemia Standing Ord. Last Infusion: 10/14/23 08:08 Dose: Infused Dextrose (D10) 1,000 mls @ 75 mls/hr IVCONT .[id number] [facility] Last Admin: 10/14/23 08:35 Dose: 75 mls/hr Levetiracetam (Keppra) 500 mg in 100 mls @ 400 mls/hr IV Q12H [facility] Heparin Sodium/Sodium Chloride (Heparin Sodium,Porcine/1/2ns) 25,000 unit in 250 mls @ 0 mls/hr IVCONT .Q0M [facility]; Protocol Metoprolol Tartrate (Metoprolol Tartrate 5 Mg/5 Ml Vial) 2.5 mg IVPUSH Q4H [facility]; Protocol Last Admin: 10/14/23 08:35 Dose: 2.5 mg Pantoprazole Sodium (Pantoprazole Sodium 40 Mg/10 Ml Vial) 40 mg IVPUSH DAILY@0630 [facility] Last Admin: 10/14/23 05:23 Dose: 40 mg Sodium Chloride (0.9 % Sodium Chloride Flush 3 Ml Syringe) 3 ml IVFLUSH QSHIFT [facility] Last Admin: 10/14/23 08:12 Dose: Not Given Home Medications ?Medication ?Instructions ?Recorded ?Confirmed ?Last Taken ?Type amlodipine 10 mg tablet 10 mg PO DAILY 10/14/23 10/14/23 10/12/23 History fentanyl 100 mcg/hr transdermal 1 patch topical Q3D 10/14/23 10/14/23 10/13/23 History patch fentanyl 50 mcg/hr transdermal 1 patch topical Q3D 10/14/23 10/14/23 10/13/23 History patch glipizide 10 mg tablet 10 mg PO DAILY 10/14/23 10/14/23 10/12/23 History insulin glargine 100 unit/mL (3 30 unit subcut DAILY 10/14/23 10/14/23 10/12/23 History mL) subcutaneous pen (Basaglar KwikPen U-100 Insulin) lisinopril 10 mg tablet 10 mg PO DAILY 10/14/23 10/14/23 10/12/23 History rivaroxaban 10 mg tablet (Xarelto) 10 mg PO DAILY 10/14/23 10/14/23 10/12/23 History Physical Exam 2 Vital Signs: Vital Signs: Last Vital Signs Temp 99.5 F 10/14/23 11:47 Pulse 90 10/14/23 11:47 Resp 20 10/14/23 11:47 BP 134/84 10/14/23 11:47 Pulse Ox 96 10/14/23 11:47 O2 Del Method Room Air 10/14/23 11:47 BMI result Body Mass Index 24.3 Neuro: Other: He is alert and awake with normal spontaneity of speech fluency comprehension and affect. He was able to recognize his family members and was making appropriate jokes. He was following commands. Face was symmetrical. Visual polk seem to be okay. There was no obvious focal arm or leg weakness. Plantars were flexor. Results Labs 10/14/23 11:39 10/14/23 06:50 Labs: Short CBC 10/13/23 10/14/23 Range/Units 23:37 11:39 WBC 13.0 H 7.8 (4.8-10.8) X10*3/uL Hgb 16.2 15.2 (14.0-18.0) g/dl Hct 47.6 45.3 (42.0-52.0) % Plt Count 282 D 218 (160-400) X10*3/uL BMP 10/13/23 10/14/23 23:37 06:50 Sodium 136 139 Potassium 4.6 4.5 Chloride 107 114 H Carbon Dioxide 18 L 16 L BUN 25 H 21 H Creatinine 1.08 0.80 Calcium 9.7 9.2 Cardiac Enzymes 10/13/23 10/14/23 Range/Units 23:37 06:50 Total Creatine Kinase 367 H 293 H (38-174) U/L Liver Function 10/13/23 Range/Units 23:37 Total Bilirubin 1.6 H (0.0-1.0) mg/dL Direct Bilirubin 0.6 H (0.0-0.5) mg/dL AST 28 (5-37) U/L ALT 23 (0-40) U/L Alkaline Phosphatase 131 H (39-117) U/L Albumin 4.1 (3.5-5.0) g/dL Urine 10/14/23 Range/Units 00:26 Urine Color Yellow Urine Appearance Clear Urine pH 6.5 (5.0-9.0) Ur Specific [place] >= 1.030 H (1.005-1.025) Urine Protein Trace (Neg-Trace) mg/dL Urine Glucose (UA) Negative (Negative) mg/dL noncontrast head CT revealed moderately severe atrophy. 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 Assessment and Plan (1) Seizure: Status: Acute 83 years old man with underlying history of atrial fibrillation on anticoagulation was noted to be with change in mental status and then apparently had a seizure in emergency room. Having a seizure was not unusual for this age group of patients with underlying significant cerebral atrophy but the reported finding on CTA suggestive of venous sinus thrombosis was worrisome. As he does not have significant exam findings, this finding might be chronic. A noncontrast MRI of brain can help differentiate. I recommend continuing anticoagulation for now with heparin and then switching to inappropriate oral anti coagulant, and levetiracetam 500 mg twice a day. Procedures Date of Service Date of Service: 10/14/23
--- NOTE | 2023-10-14 12:17 | PM.HEMONCCN ---
Subjective - Subjective Chief complaint: Unable to provide Patient: new to practice Consult date: 10/14/23 Requesting Physician: Dr. Romero Primary Care Provider: Erik Perkins MD HPI - Consult Narrative Reason for consult: Cerebral vein thrombosis Narrative: Ferny Barron is a 83 year old male who was brought in by family members for altered mental status. He was found to be in bed almost unresponsive. At this time patient is unable to provide any history, according to family members, patient has been declining for at least 1 month with change in his mental status, generalized weakness and difficulty with ambulation. He was admitted to [facility] in the beginning of September for abdominal pain, he was scheduled to undergo gallbladder surgery this week. Last Sunday he again went to [facility] for altered mental status, however evaluation in their ED was unremarkable except for hypoglycemia. He was not admitted. His past medical history significant for type 2 diabetes mellitus, hypertension and history of pulmonary embolism around 2013. According to family, he developed DVT and pulmonary embolism after a period of immobilization, details are not very clear. Family also insist that he was not taking any Xarelto for at least last 3 weeks. He reports chronic migraine headaches. Workup in the ED revealed atrial fibrillation with rapid ventricular response. Head and neck CT angiogram revealed extensive cerebral venous thrombosis. He was started on anticoagulation and Keppra for seizure prophylaxis. There is no family history of thromboembolism. Patient has never been diagnosed or treated for any cancer. There is no history of recent infections or antibiotic use. No head trauma. Review of Systems - Constitutional Reports as per [facility] Medical History: Medical History (Last Reviewed 10/15/23 @ 09:26 by Ellie Moore, OTR-L) Essential hypertension Gallbladder sludge History of pulmonary embolism Social History: Social History Living Situation History: Household Members: Family Household Members Other:: Son Housing: Condominium Do you presently have visiting nurse or other home services: No Alcohol History Details: 1. How often do you have a drink containing alcohol?: a. Never AUDIT-C Alcohol total score: 0 Currently Displaying Signs/Symptoms of Alcohol Withdrawal: No Tobacco History: Patient Tobacco Use Status: Never used Tobacco Substance Use History: Use of substances other than those prescribed or required for medical reasons: No Currently Displaying Signs/Symptoms of Drug Intoxication Withdrawal: No Domestic Abuse History: Have you been hit, kicked, punched, or otherwise hurt by someone within the past year? If so, by whom?: No Do you feel safe in your current relationship?: No Current Relationship Is there a partner from a previous relationship who is making you feel unsafe now?: No Are you made to feel afraid or neglected: No Advance Directives: Advance Directives: Yes Advance Directives Information Provided: No Advance Directives on File: No Advance Directives Date on File: 10/13/23 Homicidal Assessment: Do you have a plan to hurt others: No Plan Nutrition Assessment: Recently lost weight without trying: Unsure Eating poorly because of decreased appetite: Yes Nutrition Risks: Difficulty swallowing Occupation Assessmet: service: No Home Medications and Allergies Current Medications: Current Medications Atorvastatin Calcium (Atorvastatin Calcium 80 Mg Tablet) 80 mg PO DAILY [facility] Last Admin: 10/14/23 08:13 Dose: Not Given Glucose (Glucose Gel 15 Gm Gel..Gram.) 15 gm PO Q15M PRN; Protocol PRN Reason: per Hypoglycemia Standing Ord. Heparin Sodium (Porcine) (Heparin Sodium,Porcine 5,000 Unit/Ml Vial) 2,500 unit 40 unit/kg (2500 unit) IVPUSH PROTOCOL BOLUS PRN; Protocol PRN Reason: 40 unit/kg - Heparin Protocol Heparin Sodium (Porcine) (Heparin Sodium,Porcine 5,000 Unit/Ml Vial) 5,000 unit 80 unit/kg (5000 unit) IVPUSH PROTOCOL BOLUS PRN; Protocol PRN Reason: 80 unit/kg - Heparin Protocol Dextrose (D10) 250 mls @ 750 mls/hr IV Q15M PRN; Protocol PRN Reason: per Hypoglycemia Standing Ord. Last Infusion: 10/14/23 08:08 Dose: Infused Dextrose (D10) 1,000 mls @ 75 mls/hr IVCONT .[id number] [facility] Last Admin: 10/14/23 08:35 Dose: 75 mls/hr Levetiracetam (Keppra) 500 mg in 100 mls @ 400 mls/hr IV Q12H [facility] Last Admin: 10/14/23 12:05 Dose: 400 mls/hr Heparin Sodium/Sodium Chloride (Heparin Sodium,Porcine/1/2ns) 25,000 unit in 250 mls @ 0 mls/hr IVCONT .Q0M [facility]; Protocol Metoprolol Tartrate (Metoprolol Tartrate 5 Mg/5 Ml Vial) 2.5 mg IVPUSH Q4H [facility]; Protocol Last Admin: 10/14/23 12:06 Dose: Not Given Pantoprazole Sodium (Pantoprazole Sodium 40 Mg/10 Ml Vial) 40 mg IVPUSH DAILY@0630 [facility] Last Admin: 10/14/23 05:23 Dose: 40 mg Sodium Chloride (0.9 % Sodium Chloride Flush 3 Ml Syringe) 3 ml IVFLUSH QSHIFT [facility] Last Admin: 10/14/23 08:12 Dose: Not Given Home Medications ?Medication ?Instructions ?Recorded ?Confirmed ?Type amlodipine 10 mg tablet 10 mg PO DAILY 10/14/23 10/14/23 History fentanyl 100 mcg/hr transdermal 1 patch topical Q3D 10/14/23 10/14/23 History patch fentanyl 50 mcg/hr transdermal 1 patch topical Q3D 10/14/23 10/14/23 History patch glipizide 10 mg tablet 10 mg PO DAILY 10/14/23 10/14/23 History insulin glargine 100 unit/mL (3 30 unit subcut DAILY 10/14/23 10/14/23 History mL) subcutaneous pen (Basaglar KwikPen U-100 Insulin) lisinopril 10 mg tablet 10 mg PO DAILY 10/14/23 10/14/23 History rivaroxaban 10 mg tablet (Xarelto) 10 mg PO DAILY 10/14/23 10/14/23 History Allergies Allergy/AdvReac Type Severity Reaction Status Date / Time Penicillins Allergy Unknown Verified 10/14/23 02:10 Physical Exam Vital signs: Vital Signs Temp 99.5 F 10/14/23 11:47 Pulse 90 10/14/23 11:47 Resp 20 10/14/23 11:47 BP 134/84 10/14/23 11:47 Pulse Ox 96 10/14/23 11:47 O2 Del Method Room Air 10/14/23 11:47 Intake & Output 10/13/23 10/14/23 10/14/23 18:59 06:59 18:59 Intake Total 1052.5 / 1052.5 755.333 / 755.333 Output Total 675 / 675 Balance 377.5 / 377.5 755.333 / 755.333 Urine Output (Average ml/kg/hr) 0.93 0.90 Intake: Intake, IV Amount 1052.5 / 1052.5 755.333 / 755.333 0.9 % Sodium Chloride 1,000 ml 1000 / 1000 @ 999 mls/hr IV .Q1H1M STA Rx#: [id number] Dextrose 10 % 250 ml @ 750 mls/ 250 / 250 hr IV Q15M PRN Rx#:[id number] Metoprolol Tartrate 2.5 mg In 0 0 / 0 .9 % Sodium Chloride 50 ml @ 210 mls/hr IV Q4H [facility]AN[facility] Rx#: [id number] Valproic Acid (as Sodium Salt) 52.5 / 52.5 250 mg In Dextrose 5 % 50 ml @ 52.5 mls/hr IV ONCE STA Rx#: [id number] Dextrose 5 % and 0.9 % NaCl 1, 505.333 / 505.333 000 ml @ 80 mls/hr IVCONT . [id number] [facility]ANNA Rx#:[id number] Output: Output, Urine Amount (Catheter) 675 / 675 2-way Urethral 675 / 675 Other: NPO Yes Urine Color Concentrated Weight 60.8 kg 62.3 kg [place] Weight in Grams [id number] Weight 62.3 kg Narrative: Elderly male, in no distress, making repetitive phrases - Constitutional Present: no acute distress - Routine HEENT Exam Head: Present: normal inspection - Routine Neck Exam Absent: lymphadenopathy - Routine Respiratory Exam Present: decreased breath sounds. Absent: accessory muscle use - Routine Cardiovascular Exam Cardiovascular: Present: S1, S2 - Routine Skin Exam Present: intact - Routine Neurological Exam Present: alert, altered mental status Hem/Onc Consult Result - Labs CBC & Chem 7: 10/15/23 08:27 10/15/23 05:10 Labs: Short CBC 10/13/23 10/14/23 Range/Units 23:37 11:39 WBC 13.0 H 7.8 (4.8-10.8) X10*3/uL Hgb 16.2 15.2 (14.0-18.0) g/dl Hct 47.6 45.3 (42.0-52.0) % Plt Count 282 D 218 (160-400) X10*3/uL BMP 10/13/23 10/14/23 23:37 06:50 Sodium 136 139 Potassium 4.6 4.5 Chloride 107 114 H Carbon Dioxide 18 L 16 L BUN 25 H 21 H Creatinine 1.08 0.80 Calcium 9.7 9.2 Cardiac Enzymes 10/13/23 10/14/23 Range/Units 23:37 06:50 Total Creatine Kinase 367 H 293 H (38-174) U/L Liver Function 10/13/23 Range/Units 23:37 Total Bilirubin 1.6 H (0.0-1.0) mg/dL Direct Bilirubin 0.6 H (0.0-0.5) mg/dL AST 28 (5-37) U/L ALT 23 (0-40) U/L Alkaline Phosphatase 131 H (39-117) U/L Albumin 4.1 (3.5-5.0) g/dL Urine 10/14/23 Range/Units 00:26 Urine Color Yellow Urine Appearance Clear Urine pH 6.5 (5.0-9.0) Ur Specific [place] >= 1.030 H (1.005-1.025) Urine Protein Trace (Neg-Trace) mg/dL Urine Glucose (UA) Negative (Negative) mg/dL Assessment and Plan Patient Active problem list reviewed?: Yes (1) Cerebral venous thrombosis Status: Acute Assessment and plan: 1. This is a 83-year-old male with remote history of DVT/pulmonary embolism, not on anticoagulation who presented with probable acute on chronic cerebral vein thrombosis. CTA head and neck and brain MRI showed extensive cerebral venous thrombosis involving superior sagittal sinus, right transverse sinus, medial aspect of left transverse sinus, right sigmoid sinus, right jugular bulb and extending into upper right cervical internal jugular vein. Possible small acute infarct involving left precentral gyrus. Patient has had altered mental status for at least 3 weeks. Has not been on Xarelto 10 mg according to family members in at least 3 weeks if not more. There is no personal history of malignancy, infection or use of any new medications. He gives a remote history of pulmonary embolism in 2013. He is a bit older it is reasonable to check thrombophilia workup to determine cause of cerebral vein thrombosis. Since he had a prior history of thromboembolism it is possible that he has underlying thrombophilia. Underlying malignancy is also possible. CTA of chest showed partially imaged right-sided pulmonary emboli, enlarged and heterogenous multinodular thyroid gland with the largest nodule measuring 3.2 cm as well as a 2.2 cm exophytic cutaneous lesion within the left preauricular soft tissue. Depending on family's wishes, further evaluation of these lesions may be considered. For treatment of CVT, I recommend switching to oral anticoagulant when feasible. There is no contraindication to direct oral anticoagulant unless he has lupus anticoagulant. I have also submitted thrombophilia workup. Given that he also has atrial fibrillation, he would be a candidate for long-term anticoagulation. I thank you for this referral. - Time Spent With Patient Time Spent with Patient (in minutes): 30
[2023-10-14] MEDS: Heparin Sodium,Porcine/1/2NS 25,000 UNIT/250 ML IV.SOLN 8.72 UNIT IVCONT (13:04)
--- NOTE | 2023-10-14 13:29 | PM.CNCAR ---
History of Present Illness History of Present Illness Date of Service: 10/14/23 Chief complaint: Stroke, Seizures Narrative: This is a cardiology consultation regarding atrial fibrillation with rapid ventricular response. Patient is not able to give a good history and hence discussed with the family. Several members were at the bedside. Also reviewed the H&P and discussed with Dr. Romero. It seems that patient has been admitted with hypoglycemia and right-sided facial droop and weakness. In this context, he was found to have atrial fibrillation rapid ventricular rate. Brain imaging has shown evidence of cerebral venous thrombosis. Otherwise, according to family, there is no prior history of atrial fibrillation or in fact any other cardiac issues. He was reasonable functional till about few weeks ago when he started deteriorating. Because of patient's mental status, can not obtain any history. It seems that he is on Xarelto at baseline because of history of pulmonary embolism. Currently, he is switched to IV heparin drip. Review of Systems Review of Systems: Unable to obtain as patient is confused. [facility] Past Medical History Medical History (Updated 10/14/23 @ 13:33 by Stan Coppola MD) Essential hypertension History of pulmonary embolism Gallbladder sludge Family History Pertinent family history: No pertinent family history Social History Social History Household Members: Family Household Members Other:: Son Housing: Condominium Do you presently have visiting nurse or other home services: No Patient Tobacco Use Status: Never used Tobacco Use of substances other than those prescribed or required for medical reasons: No Currently Displaying Signs/Symptoms of Drug Intoxication Withdrawal: No Have you been hit, kicked, punched, or otherwise hurt by someone within the past year? If so, by whom?: No Do you feel safe in your current relationship?: No Current Relationship Is there a partner from a previous relationship who is making you feel unsafe now?: No Are you made to feel afraid or neglected: No Advance Directives: Yes Advance Directives Information Provided: No Advance Directives on File: No Advance Directives Date on File: 10/13/23 Do you have a plan to hurt others: No Plan Recently lost weight without trying: Unsure Eating poorly because of decreased appetite: Yes Nutrition Risks: Difficulty swallowing service: No Meds Allergies Allergy/AdvReac Type Severity Reaction Status Date / Time Penicillins Allergy Unknown Verified 10/14/23 02:10 Active Medications: Current Medications Atorvastatin Calcium (Atorvastatin Calcium 80 Mg Tablet) 80 mg PO DAILY [facility] Last Admin: 10/14/23 08:13 Dose: Not Given Glucose (Glucose Gel 15 Gm Gel..Gram.) 15 gm PO Q15M PRN; Protocol PRN Reason: per Hypoglycemia Standing Ord. Heparin Sodium (Porcine) (Heparin Sodium,Porcine 5,000 Unit/Ml Vial) 2,500 unit 40 unit/kg (2500 unit) IVPUSH PROTOCOL BOLUS PRN; Protocol PRN Reason: 40 unit/kg - Heparin Protocol Heparin Sodium (Porcine) (Heparin Sodium,Porcine 5,000 Unit/Ml Vial) 5,000 unit 80 unit/kg (5000 unit) IVPUSH PROTOCOL BOLUS PRN; Protocol PRN Reason: 80 unit/kg - Heparin Protocol Dextrose (D10) 250 mls @ 750 mls/hr IV Q15M PRN; Protocol PRN Reason: per Hypoglycemia Standing Ord. Last Infusion: 10/14/23 08:08 Dose: Infused Dextrose (D10) 1,000 mls @ 75 mls/hr IVCONT .[id number] [facility] Last Admin: 10/14/23 08:35 Dose: 75 mls/hr Levetiracetam (Keppra) 500 mg in 100 mls @ 400 mls/hr IV Q12H [facility] Last Infusion: 10/14/23 12:42 Dose: Infused Heparin Sodium/Sodium Chloride (Heparin Sodium,Porcine/1/2ns) 25,000 unit in 250 mls @ 0 mls/hr IVCONT .Q0M [facility]; Protocol Last Admin: 10/14/23 13:04 Dose: 14 units/kg/hr, 8.72 mls/hr Metoprolol Tartrate (Metoprolol Tartrate 5 Mg/5 Ml Vial) 2.5 mg IVPUSH Q4H [facility]; Protocol Last Admin: 10/14/23 12:06 Dose: Not Given Pantoprazole Sodium (Pantoprazole Sodium 40 Mg/10 Ml Vial) 40 mg IVPUSH DAILY@0630 [facility] Last Admin: 10/14/23 05:23 Dose: 40 mg Sodium Chloride (0.9 % Sodium Chloride Flush 3 Ml Syringe) 3 ml IVFLUSH QSHIFT [facility] Last Admin: 10/14/23 08:12 Dose: Not Given Home Medications ?Medication ?Instructions ?Recorded ?Confirmed ?Last Taken ?Type amlodipine 10 mg tablet 10 mg PO DAILY 10/14/23 10/14/23 10/12/23 History fentanyl 100 mcg/hr transdermal 1 patch topical Q3D 10/14/23 10/14/23 10/13/23 History patch fentanyl 50 mcg/hr transdermal 1 patch topical Q3D 10/14/23 10/14/23 10/13/23 History patch glipizide 10 mg tablet 10 mg PO DAILY 10/14/23 10/14/23 10/12/23 History insulin glargine 100 unit/mL (3 30 unit subcut DAILY 10/14/23 10/14/23 10/12/23 History mL) subcutaneous pen (Basaglar KwikPen U-100 Insulin) lisinopril 10 mg tablet 10 mg PO DAILY 10/14/23 10/14/23 10/12/23 History rivaroxaban 10 mg tablet (Xarelto) 10 mg PO DAILY 10/14/23 10/14/23 10/12/23 History Physical Exam Vital Signs: Vital Signs: Last Vital Signs Temp 99.5 F 10/14/23 11:47 Pulse 90 10/14/23 11:47 Resp 20 10/14/23 11:47 BP 134/84 10/14/23 11:47 Pulse Ox 96 10/14/23 11:47 O2 Del Method Room Air 10/14/23 11:47 BMI result Body Mass Index 24.3 Const: General: comfortable and no acute distress Orientation/consciousness: No patient oriented x3 HEENT: Other: Unremarkable Head: Yes normal to inspection Neck: Neck: Yes normal visual inspection Chest: Chest palpation & inspection: normal inspection of the chest Resp: Auscultation: clear to auscultation bilaterally Cardio: Palpation: normal PMI Heart sounds: S1 normal heart sound present, S2 normal heart sound present, no gallops, no murmurs and no rubs GI: Palpation (GI): Soft to palpation Back/Spine/Pelvis: Other: unremarkable Skin: General skin exam: no rashes or lesions noted Neuro: General: No patient oriented x3 Extrem: General: Yes normal to inspection Psych: Mental Status: mental status grossly abnormal Objective Labs and Meds 10/14/23 11:39 10/14/23 06:50 Lab results: Laboratory Results - last 24 hr 10/13/23 10/14/23 10/14/23 23:37 00:00 00:26 WBC 13.0 H RBC 5.24 Hgb 16.2 Hct 47.6 MCV 90.8 MCH 30.9 MCHC 34.0 RDW 13.4 Plt Count 282 D MPV 10.7 Immature Gran % (Auto) 0.4 Neut % (Auto) 88.7 H Lymph % (Auto) 6.0 L [place] % (Auto) 4.6 Eos % (Auto) 0.1 Baso % (Auto) 0.2 Lymph # (Auto) 0.8 L [place] # (Auto) 0.6 Eos # (Auto) 0.0 Baso # (Auto) 0.0 Abs Immat Gran (auto) 0.05 H Absolute Neuts (auto) 11.5 H Absolute Nucleated RBC 0.000 Nucleated RBC % (auto) 0.0 PT 15.9 H INR 1.3 H APTT 30.5 aPTT Heparin Protocol Sodium 136 Potassium 4.6 Chloride 107 Carbon Dioxide 18 L Anion Gap 16 BUN 25 H Creatinine 1.08 Estim Creat Clear Calc 43.1 Estimated GFR > 60 POC Glucose 84 Random Glucose 103 Estimat Average Glucose Hemoglobin A1c % Calcium 9.7 Magnesium 2.2 Total Bilirubin 1.6 H Direct Bilirubin 0.6 H AST 28 ALT 23 Alkaline Phosphatase 131 H Total Creatine Kinase 367 H Troponin I High Sens 10.9 Total Protein 7.0 Albumin 4.1 Lipase TSH < 0.01 L Free T4 1.63 Urine Color Yellow Urine Appearance Clear Urine pH 6.5 Ur Specific [place] >= 1.030 H Urine Protein Trace Urine Glucose (UA) Negative Urine Ketones 15 Urine Blood Small (1+) H Urine Nitrite Negative Ur Leukocyte Esterase Negative Urine RBC 11-20 H Urine WBC 0-5 Ur Squamous Epith Cells 0-2 Urine Bacteria None Seen Hyaline Casts 0-2 Ethyl Alcohol < 10 Influenza Type A (PCR) Influenza Type B (PCR) RSV RNA Qual (PCR) SARS-CoV-2 RNA (RT-PCR) 10/14/23 10/14/23 10/14/23 01:57 03:24 06:50 WBC RBC Hgb Hct MCV MCH MCHC RDW Plt Count MPV Immature Gran % (Auto) Neut % (Auto) Lymph % (Auto) [place] % (Auto) Eos % (Auto) Baso % (Auto) Lymph # (Auto) [place] # (Auto) Eos # (Auto) Baso # (Auto) Abs Immat Gran (auto) Absolute Neuts (auto) Absolute Nucleated RBC Nucleated RBC % (auto) PT INR APTT aPTT Heparin Protocol Sodium 139 Potassium 4.5 Chloride 114 H Carbon Dioxide 16 L Anion Gap 14 BUN 21 H Creatinine 0.80 Estim Creat Clear Calc 58.2 Estimated GFR > 60 POC Glucose 73 88 Random Glucose 50 L* Estimat Average Glucose 137 Hemoglobin A1c % 6.4 H Calcium 9.2 Magnesium Total Bilirubin Direct Bilirubin AST ALT Alkaline Phosphatase Total Creatine Kinase 293 H Troponin I High Sens 16.6 D Total Protein Albumin Lipase 24 TSH Free T4 Urine Color Urine Appearance Urine pH Ur Specific [place] Urine Protein Urine Glucose (UA) Urine Ketones Urine Blood Urine Nitrite Ur Leukocyte Esterase Urine RBC Urine WBC Ur Squamous Epith Cells Urine Bacteria Hyaline Casts Ethyl Alcohol Influenza Type A (PCR) Influenza Type B (PCR) RSV RNA Qual (PCR) SARS-CoV-2 RNA (RT-PCR) 10/14/23 10/14/23 10/14/23 06:52 07:30 09:56 WBC RBC Hgb Hct MCV MCH MCHC RDW Plt Count MPV Immature Gran % (Auto) Neut % (Auto) Lymph % (Auto) [place] % (Auto) Eos % (Auto) Baso % (Auto) Lymph # (Auto) [place] # (Auto) Eos # (Auto) Baso # (Auto) Abs Immat Gran (auto) Absolute Neuts (auto) Absolute Nucleated RBC Nucleated RBC % (auto) PT INR APTT aPTT Heparin Protocol Sodium Potassium Chloride Carbon Dioxide Anion Gap BUN Creatinine Estim Creat Clear Calc Estimated GFR POC Glucose 54 L* 115 111 Random Glucose Estimat Average Glucose Hemoglobin A1c % Calcium Magnesium Total Bilirubin Direct Bilirubin AST ALT Alkaline Phosphatase Total Creatine Kinase Troponin I High Sens Total Protein Albumin Lipase TSH Free T4 Urine Color Urine Appearance Urine pH Ur Specific [place] Urine Protein Urine Glucose (UA) Urine Ketones Urine Blood Urine Nitrite Ur Leukocyte Esterase Urine RBC Urine WBC Ur Squamous Epith Cells Urine Bacteria Hyaline Casts Ethyl Alcohol Influenza Type A (PCR) Influenza Type B (PCR) RSV RNA Qual (PCR) SARS-CoV-2 RNA (RT-PCR) 10/14/23 10/14/23 10/14/23 10:34 11:39 11:39 WBC 7.8 RBC 4.87 Hgb 15.2 Hct 45.3 MCV 93.0 MCH 31.2 MCHC 33.6 RDW 13.5 Plt Count 218 MPV 10.8 Immature Gran % (Auto) 0.6 H Neut % (Auto) 68.5 Lymph % (Auto) 21.6 [place] % (Auto) 8.7 Eos % (Auto) 0.1 Baso % (Auto) 0.5 Lymph # (Auto) 1.7 [place] # (Auto) 0.7 Eos # (Auto) 0.0 Baso # (Auto) 0.0 Abs Immat Gran (auto) 0.05 H Absolute Neuts (auto) 5.3 Absolute Nucleated RBC 0.000 Nucleated RBC % (auto) 0.0 PT 15.4 H Cancelled INR 1.3 H APTT aPTT Heparin Protocol Sodium Potassium Chloride Carbon Dioxide Anion Gap BUN Creatinine Estim Creat Clear Calc Estimated GFR POC Glucose Random Glucose Estimat Average Glucose Hemoglobin A1c % Calcium Magnesium Total Bilirubin Direct Bilirubin AST ALT Alkaline Phosphatase Total Creatine Kinase Troponin I High Sens Total Protein Albumin Lipase TSH Free T4 Urine Color Urine Appearance Urine pH Ur Specific [place] Urine Protein Urine Glucose (UA) Urine Ketones Urine Blood Urine Nitrite Ur Leukocyte Esterase Urine RBC Urine WBC Ur Squamous Epith Cells Urine Bacteria Hyaline Casts Ethyl Alcohol Influenza Type A (PCR) NEGATIVE Influenza Type B (PCR) NEGATIVE RSV RNA Qual (PCR) NEGATIVE SARS-CoV-2 RNA (RT-PCR) NEGATIVE 10/14/23 10/14/23 11:39 11:51 WBC RBC Hgb Hct MCV MCH MCHC RDW Plt Count MPV Immature Gran % (Auto) Neut % (Auto) Lymph % (Auto) [place] % (Auto) Eos % (Auto) Baso % (Auto) Lymph # (Auto) [place] # (Auto) Eos # (Auto) Baso # (Auto) Abs Immat Gran (auto) Absolute Neuts (auto) Absolute Nucleated RBC Nucleated RBC % (auto) PT INR Cancelled APTT Cancelled aPTT Heparin Protocol 28.9 L Sodium Potassium Chloride Carbon Dioxide Anion Gap BUN Creatinine Estim Creat Clear Calc Estimated GFR POC Glucose 128 H Random Glucose Estimat Average Glucose Hemoglobin A1c % Calcium Magnesium Total Bilirubin Direct Bilirubin AST ALT Alkaline Phosphatase Total Creatine Kinase Troponin I High Sens Total Protein Albumin Lipase TSH Free T4 Urine Color Urine Appearance Urine pH Ur Specific [place] Urine Protein Urine Glucose (UA) Urine Ketones Urine Blood Urine Nitrite Ur Leukocyte Esterase Urine RBC Urine WBC Ur Squamous Epith Cells Urine Bacteria Hyaline Casts Ethyl Alcohol Influenza Type A (PCR) Influenza Type B (PCR) RSV RNA Qual (PCR) SARS-CoV-2 RNA (RT-PCR) ECG Interpretation: EKG with atrial fibrillation at a rate of 113/Min; anterolateral T inversions. No previous EKG for comparison. Imaging Radiologist's impression: Impressions Head CT 10/13/23 22:52 IMPRESSION: 1. Evaluation is limited by motion artifact. 2. No acute intracranial hemorrhage or territorial infarction. These results were discussed with Kuldeep Noe MD by telephone on 10/13/2023 at 11:02 PM and it was ascertained that the content of the report was understood at the time of direct communication. Head/Neck CTA 10/13/23 23:05 IMPRESSION: HEAD CT: No acute intracranial hemorrhage or edematous infarction. CTA HEAD/NECK: 1. No high-grade stenosis or proximal occlusion of the vasculature of the head and neck. 2. Evaluation of the cervical arteries is severely limited by motion artifact. Chest X-Ray 10/13/23 23:32 IMPRESSION: Low lung volumes with mild dependent atelectasis. No acute pulmonary findings. Assessment and Plan (1) Atrial fibrillation with rapid ventricular response: Status: Acute (2) Cerebral venous thrombosis: Status: Acute Plan Currently, atrial fibrillation is controlled on telemetry. He has at a rate of 70/Min. Meds listed to be metoprolol 2.5 mg IV q.4h. If he can not take p.o., that has a reasonable regimen. Eventually, switch him to oral beta-blockers or diltiazem. With regard to anticoagulation, he takes Xarelto 10 mg at home because of history pulmonary embolism. Currently is on IV heparin drip. When appropriate from the venous thrombosis standpoint, we can switch him to oral anticoagulation-Xarelto 20 mg daily. Echocardiogram tomorrow. Discussed with family members who are at the bedside. Procedures Date of Service Date of Service: 10/14/23
[2023-10-14 14:40] LABS: Glucose, Whole Blood 156 mg/dL (60-115)
--- NOTE | 2023-10-14 16:28 | HO.PM.IMPN ---
Subjective Subjective Date of Service: 10/14/23 Interval History: Cerebral venous thrombosis, seizure Review of Systems Patient is otherwise awake, pleasant Has on and on headaches no new seizure episodes Denies any chest pain or shortness of breath Physical Exam Vital Signs: Vital Signs: Last Vital Signs Temp 97.5 F 10/14/23 15:56 Pulse 73 10/14/23 15:56 Resp 20 10/14/23 15:56 BP 132/76 10/14/23 15:56 Pulse Ox 99 10/14/23 15:56 O2 Del Method Room Air 10/14/23 15:56 BMI result Body Mass Index 24.3 Appearance: Alert.? Oriented X2, plesantly confused somewhat.? cvs: rrr, [id number] . res: clear to auscultation ,no rhonchii or wheezing abd: no rebound or guarding ,nt, bs present. ext pulses present , no cyanosis. neuro: axo3 , has right upper ext weakness especially weak on hand squeezing. otherwise moves allext Objective Data Active Medications Atorvastatin Calcium (Atorvastatin Calcium 80 Mg Tablet) 80 mg PO DAILY SHANNA Last Admin: 10/14/23 08:13 Dose: Not Given Documented By: LORI Non-Admin Reason: NPO Fentanyl (Fentanyl 50 Mcg Patch.Td72) 50 mcg TRANSDERMA Q3D SHANNA Fentanyl (Fentanyl 100 Mcg Patch.Td72) 100 mcg TRANSDERMA Q3D SHANNA Glucose (Glucose Gel 15 Gm Gel..Gram.) 15 gm PO Q15M PRN; Protocol PRN Reason: per Hypoglycemia Standing Ord. Heparin Sodium (Porcine) (Heparin Sodium,Porcine 5,000 Unit/Ml Vial) 2,500 unit 40 unit/kg (2500 unit) IVPUSH PROTOCOL BOLUS PRN; Protocol PRN Reason: 40 unit/kg - Heparin Protocol Heparin Sodium (Porcine) (Heparin Sodium,Porcine 5,000 Unit/Ml Vial) 5,000 unit 80 unit/kg (5000 unit) IVPUSH PROTOCOL BOLUS PRN; Protocol PRN Reason: 80 unit/kg - Heparin Protocol Dextrose (D10) 250 mls @ 750 mls/hr IV Q15M PRN; Protocol PRN Reason: per Hypoglycemia Standing Ord. Last Infusion: 10/14/23 08:08 Dose: Infused Documented By: LORI Dextrose (D10) 1,000 mls @ 75 mls/hr IVCONT .[id number] [facility] Last Admin: 10/14/23 08:35 Dose: 75 mls/hr Documented By: LORI Levetiracetam (Keppra) 500 mg in 100 mls @ 400 mls/hr IV Q12H [facility] Last Infusion: 10/14/23 12:42 Dose: Infused Documented By: LORI Heparin Sodium/Sodium Chloride (Heparin Sodium,Porcine/1/2ns) 25,000 unit in 250 mls @ 0 mls/hr IVCONT .Q0M [facility]; Protocol Last Titration: 10/14/23 15:56 Dose: 0 units/kg/hr, 0 mls/hr Documented By: LORI Co-signed By: MILAGROS Metoprolol Tartrate (Metoprolol Tartrate 5 Mg/5 Ml Vial) 2.5 mg IVPUSH Q4H [facility]; Protocol Last Admin: 10/14/23 12:06 Dose: Not Given Documented By: LORI Non-Admin Reason: Decreased Heart Rate Pantoprazole Sodium (Pantoprazole Sodium 40 Mg/10 Ml Vial) 40 mg IVPUSH DAILY@0630 [facility] Last Admin: 10/14/23 05:23 Dose: 40 mg Documented By: ANTOIC Sodium Chloride (0.9 % Sodium Chloride Flush 3 Ml Syringe) 3 ml IVFLUSH QSHIFT [facility] Last Admin: 10/14/23 08:12 Dose: Not Given Documented By: LORI Non-Admin Reason: IV Running Labs 10/14/23 11:39 10/14/23 06:50 Labs: Laboratory Results - last 24 hr 10/13/23 10/14/23 10/14/23 23:37 00:00 00:26 MCV 90.8 MCH 30.9 MCHC 34.0 RDW 13.4 Plt Count 282 D MPV 10.7 Immature Gran % (Auto) 0.4 Neut % (Auto) 88.7 H Lymph % (Auto) 6.0 L [place] % (Auto) 4.6 Eos % (Auto) 0.1 Baso % (Auto) 0.2 Lymph # (Auto) 0.8 L [place] # (Auto) 0.6 Eos # (Auto) 0.0 Baso # (Auto) 0.0 Abs Immat Gran (auto) 0.05 H Absolute Neuts (auto) 11.5 H Absolute Nucleated RBC 0.000 Nucleated RBC % (auto) 0.0 PT 15.9 H INR 1.3 H APTT 30.5 aPTT Heparin Protocol Anion Gap 16 Estim Creat Clear Calc 43.1 Estimated GFR > 60 POC Glucose 84 Random Glucose 103 Estimat Average Glucose Hemoglobin A1c % Calcium 9.7 Magnesium 2.2 Total Bilirubin 1.6 H Direct Bilirubin 0.6 H AST 28 ALT 23 Alkaline Phosphatase 131 H Total Creatine Kinase 367 H Troponin I High Sens 10.9 Total Protein 7.0 Albumin 4.1 Lipase TSH < 0.01 L Free T4 1.63 Urine Color Yellow Urine Appearance Clear Urine pH 6.5 Ur Specific [place] >= 1.030 H Urine Protein Trace Urine Glucose (UA) Negative Urine Ketones 15 Urine Blood Small (1+) H Urine Nitrite Negative Ur Leukocyte Esterase Negative Urine RBC 11-20 H Urine WBC 0-5 Ur Squamous Epith Cells 0-2 Urine Bacteria None Seen Hyaline Casts 0-2 Ethyl Alcohol < 10 Influenza Type A (PCR) Influenza Type B (PCR) RSV RNA Qual (PCR) SARS-CoV-2 RNA (RT-PCR) 10/14/23 10/14/23 10/14/23 01:57 03:24 06:50 MCV MCH MCHC RDW Plt Count MPV Immature Gran % (Auto) Neut % (Auto) Lymph % (Auto) [place] % (Auto) Eos % (Auto) Baso % (Auto) Lymph # (Auto) [place] # (Auto) Eos # (Auto) Baso # (Auto) Abs Immat Gran (auto) Absolute Neuts (auto) Absolute Nucleated RBC Nucleated RBC % (auto) PT INR APTT aPTT Heparin Protocol Anion Gap 14 Estim Creat Clear Calc 58.2 Estimated GFR > 60 POC Glucose 73 88 Random Glucose 50 L* Estimat Average Glucose 137 Hemoglobin A1c % 6.4 H Calcium 9.2 Magnesium Total Bilirubin Direct Bilirubin AST ALT Alkaline Phosphatase Total Creatine Kinase 293 H Troponin I High Sens 16.6 D Total Protein Albumin Lipase 24 TSH Free T4 Urine Color Urine Appearance Urine pH Ur Specific [place] Urine Protein Urine Glucose (UA) Urine Ketones Urine Blood Urine Nitrite Ur Leukocyte Esterase Urine RBC Urine WBC Ur Squamous Epith Cells Urine Bacteria Hyaline Casts Ethyl Alcohol Influenza Type A (PCR) Influenza Type B (PCR) RSV RNA Qual (PCR) SARS-CoV-2 RNA (RT-PCR) 10/14/23 10/14/23 10/14/23 06:52 07:30 09:56 MCV MCH MCHC RDW Plt Count MPV Immature Gran % (Auto) Neut % (Auto) Lymph % (Auto) [place] % (Auto) Eos % (Auto) Baso % (Auto) Lymph # (Auto) [place] # (Auto) Eos # (Auto) Baso # (Auto) Abs Immat Gran (auto) Absolute Neuts (auto) Absolute Nucleated RBC Nucleated RBC % (auto) PT INR APTT aPTT Heparin Protocol Anion Gap Estim Creat Clear Calc Estimated GFR POC Glucose 54 L* 115 111 Random Glucose Estimat Average Glucose Hemoglobin A1c % Calcium Magnesium Total Bilirubin Direct Bilirubin AST ALT Alkaline Phosphatase Total Creatine Kinase Troponin I High Sens Total Protein Albumin Lipase TSH Free T4 Urine Color Urine Appearance Urine pH Ur Specific [place] Urine Protein Urine Glucose (UA) Urine Ketones Urine Blood Urine Nitrite Ur Leukocyte Esterase Urine RBC Urine WBC Ur Squamous Epith Cells Urine Bacteria Hyaline Casts Ethyl Alcohol Influenza Type A (PCR) Influenza Type B (PCR) RSV RNA Qual (PCR) SARS-CoV-2 RNA (RT-PCR) 10/14/23 10/14/23 10/14/23 10:34 11:39 11:39 MCV 93.0 MCH 31.2 MCHC 33.6 RDW 13.5 Plt Count 218 MPV 10.8 Immature Gran % (Auto) 0.6 H Neut % (Auto) 68.5 Lymph % (Auto) 21.6 [place] % (Auto) 8.7 Eos % (Auto) 0.1 Baso % (Auto) 0.5 Lymph # (Auto) 1.7 [place] # (Auto) 0.7 Eos # (Auto) 0.0 Baso # (Auto) 0.0 Abs Immat Gran (auto) 0.05 H Absolute Neuts (auto) 5.3 Absolute Nucleated RBC 0.000 Nucleated RBC % (auto) 0.0 PT 15.4 H Cancelled INR 1.3 H APTT aPTT Heparin Protocol Anion Gap Estim Creat Clear Calc Estimated GFR POC Glucose Random Glucose Estimat Average Glucose Hemoglobin A1c % Calcium Magnesium Total Bilirubin Direct Bilirubin AST ALT Alkaline Phosphatase Total Creatine Kinase Troponin I High Sens Total Protein Albumin Lipase TSH Free T4 Urine Color Urine Appearance Urine pH Ur Specific [place] Urine Protein Urine Glucose (UA) Urine Ketones Urine Blood Urine Nitrite Ur Leukocyte Esterase Urine RBC Urine WBC Ur Squamous Epith Cells Urine Bacteria Hyaline Casts Ethyl Alcohol Influenza Type A (PCR) NEGATIVE Influenza Type B (PCR) NEGATIVE RSV RNA Qual (PCR) NEGATIVE SARS-CoV-2 RNA (RT-PCR) NEGATIVE 10/14/23 10/14/23 10/14/23 11:39 11:51 14:36 MCV MCH MCHC RDW Plt Count MPV Immature Gran % (Auto) Neut % (Auto) Lymph % (Auto) [place] % (Auto) Eos % (Auto) Baso % (Auto) Lymph # (Auto) [place] # (Auto) Eos # (Auto) Baso # (Auto) Abs Immat Gran (auto) Absolute Neuts (auto) Absolute Nucleated RBC Nucleated RBC % (auto) PT INR Cancelled APTT Cancelled aPTT Heparin Protocol 28.9 L Anion Gap Estim Creat Clear Calc Estimated GFR POC Glucose 128 H 156 H Random Glucose Estimat Average Glucose Hemoglobin A1c % Calcium Magnesium Total Bilirubin Direct Bilirubin AST ALT Alkaline Phosphatase Total Creatine Kinase Troponin I High Sens Total Protein Albumin Lipase TSH Free T4 Urine Color Urine Appearance Urine pH Ur Specific [place] Urine Protein Urine Glucose (UA) Urine Ketones Urine Blood Urine Nitrite Ur Leukocyte Esterase Urine RBC Urine WBC Ur Squamous Epith Cells Urine Bacteria Hyaline Casts Ethyl Alcohol Influenza Type A (PCR) Influenza Type B (PCR) RSV RNA Qual (PCR) SARS-CoV-2 RNA (RT-PCR) Assessment and Plan (1) Cerebral venous thrombosis: Status: Acute (2) Seizure: Status: Acute (3) Atrial fibrillation with rapid ventricular response: Status: Acute Plan 83 y/o man admitted with: right upper ext weakness mild cta-neg for stroke ,but has extensive cerebral venous thrombosis, also pulmonary embolism. Mri-Possible small acute infarct involving the left precentral gyrus nearthe hand region. No new seizure episodes neurochecks Seizure precautions, added Keppra 500 b.i.d. IV Discussed with hematology and neurology: Patient started on IV heparin, continue statin. Hypoglycemia in setting of diabetes type 2: Hold oral hypoglycemic Added D10 solution, moniter fs closely (improving) Possible subclinical hyperthyroidism: Low TSH, free t4 normal, free t3 added. Urinary retention. s/p indwelling urinary catheter insertion . Elevated bilirubin. Recent diagnosis of gallbladder sludge. Check abdominal US. Continue to monitor LFTs. History of pulmonary embolism- right-sided pulmonary emboli . CTA still shows pulmonary embolism On IV heparin new AFib : tsh as above added iv metoprolol 2.5 mg q6hr continue iv heparin cardiology eval noted. Code status: Full DVT prophylaxis: Xarelto Ongoing hospitalization need: Cerebral venous thrombosis, pulmonary embolism, possible acute CVA: Continue IV heparin, monitor PT/ PTT protocol, hypoglycemia-on D10, monitor fingersticks closely. Quality Stroke Does the patient have a stroke diagnosis?: Yes Reason for No Anti-thrombotic by Day Two: N/A - Med Ordered VTE Prior VTE?: Yes VTE Risk Level:: Medical - moderate - high VTE Device Contraindication: Treatment Not Indicated VTE Drug Contraindication: N/A - Med Ordered
[2023-10-14 16:34] LABS: Glucose, Whole Blood 158 mg/dL (60-115)
[2023-10-14] MEDS: fentaNYL 100 MCG PATCH.TD72 TRANSDERMA (16:58)
[2023-10-14] MEDS: fentaNYL 50 MCG PATCH.TD72 TRANSDERMA (16:58)
[2023-10-14 17:14] LABS: ABG Base Excess -6.4 mmol/L; ABG HCO3 16 mmol/L (22-26); ABG pCO2 24 mmHg (32-45); ABG pH 7.41 (7.35-7.45); ABG pO2 102 mmHg (83-108)
[2023-10-14 17:51] LABS: Glucose, Whole Blood 174 mg/dL (60-115)
--- NOTE | 2023-10-14 18:34 | W.MHC.ACPN ---
Advanced Care Planning Note Advanced Care Planning Note Time spent (in minutes): 30 Narrative: Patient had multiple comorbidities including extensive cerebral venous thrombosis, new CVA: Discussed with the family-currently family want conservative management, MOLST form completed patient is DNR DNI. Time spent 30 minutes. Problems Discussed (1) Cerebral venous thrombosis: (2) Seizure: (3) Atrial fibrillation with rapid ventricular response:
[2023-10-14 19:44] LABS: ABG Refer to POC result
[2023-10-14] MEDS: Lactated Ringers 1,000 ML 75 ML IVCONT (20:42)
[2023-10-14 20:48] LABS: Glucose, Whole Blood 215 mg/dL (60-115)
[2023-10-14 22:06] LABS: Glucose, Whole Blood 203 mg/dL (60-115)
[2023-10-14 22:10] LABS: PTT Heparin Drip 55.2 SEC (53-77.9)
[2023-10-14 23:56] LABS: Glucose, Whole Blood 148 mg/dL (60-115)
[2023-10-15] VITALS (7 sets, daily range): BP systolic 101–136; BP diastolic 57–87; PULSE 56–92; RESP 16–20; TEMP 36.1–36.7; O2SAT 96–99
[2023-10-15 02:04] LABS: Glucose, Whole Blood 134 mg/dL (60-115)
[2023-10-15 04:26] LABS: Glucose, Whole Blood 102 mg/dL (60-115)
[2023-10-15 05:18] LABS: Venous Blood Gas Refer to POC result
[2023-10-15] MEDS: Pantoprazole Sodium 40 MG/10 ML VIAL IVPUSH (05:18)
[2023-10-15 05:21] LABS: VBG Base Excess -5.1 mmol/L; VBG HCO3 16 mmol/L (22-26); VBG pCO2 22 mmHg; VBG pH 7.47 (7.32-7.43); VBG pO2 85 mmHg
[2023-10-15 05:22] LABS: INTERNATIONAL NORM RATIO 1.3 (0.9-1.1)
[2023-10-15 05:24] LABS: PTT Heparin Drip 84.1 SEC (53-77.9)
[2023-10-15 05:43] LABS: Alanine Aminotransferase 18 U/L (0-40); Albumin Level 3.2 g/dL (3.5-5.0); Alkaline Phosphatase 91 U/L (39-117); Anion Gap 15 (12-20); Aspartate Amino Transferase 29 U/L (5-37); Bilirubin Total 1.9 mg/dL (0.0-1.0); Blood Urea Nitrogen 13 mg/dL (9-16); Calcium 8.9 mg/dL (8.4-10.2); Carbon Dioxide 15 mmol/L (22-29); Chloride 114 mmol/L (96-108); Cholesterol 101 mg/dL (<200); Creatinine Clr Calc Pharmacy 52.9; Estimated Glomerular Filt Rate > 60; Glucose Random 112 mg/dL (60-115); HDL Cholesterol 32 mg/dL (>40); LDL Cholesterol Calculated 53 mg/dL (<100); Potassium 4.8 mmol/L (3.3-5.1); Sodium 139 mmol/L (135-145); Total Protein 5.8 g/dL (6.5-8.0); Triglycerides 81 mg/dL (<150)
[2023-10-15 06:06] LABS: Glucose, Whole Blood 108 mg/dL (60-115)
--- NOTE | 2023-10-15 07:00 | CA_ITS ---
Transthoracic Echocardiogram Patient (Last, First, Middle): Ferny Barron Armand Gender: Male Date of : 1940 Age: 83 Procedure Date: 10/15/2023 Procedure Type: Transthoracic Echocardiogram Location: [place] Height: 160.02 cm Weight: 62.14 kg BSA: 1.65 m2 Heart Rate: bpm BP: 136 / 87 mmHg Marketing Campaign Analyst: Referring MD: Teresa Romero MD Production Control Supervisor: Feng Dodson MD Symptoms: cva Study Quality: Technically Difficult ECG Rhythm: Atrial Fibrillation Conclusions: - 1. Technically limited study despite use of contrast agent 2. Left ventricular systolic function appears preserved with LVEF of about 50-55% 3. Limited visualization of other cardiac structures Findings Left Ventricle The left ventricle was not well visualized. Normal left ventricular cavity size. The visually estimated ejection fraction is between 50-55%. Regional wall motion abnormalities can not be excluded due to suboptimal endocardial definition. Diastolic function is indeterminate on the basis of available data. There is moderate apical asymmetric hypertrophy. Right Ventricle Moderately increased right ventricular cavity size. There is normal right ventricular systolic function. Atria The left atrium was not well visualized. Interatrial shunt cannot be excluded. The right atrium was not well visualized. Aortic Valve The aortic valve was not well visualized. There is no aortic valve stenosis. There is no aortic valve regurgitation. Mitral Valve The mitral valve was not well visualized. There is no mitral valve regurgitation. There is no mitral valve stenosis. Pulmonic Valve The pulmonic valve was not well visualized. Tricuspid Valve The tricuspid valve was not well visualized. Tricuspid regurgitation envelope is inadequate for calculation of right ventricular systolic pressure. Indeterminate right atrial pressure. Great Vessels The aorta was not well visualized. The pulmonary artery was not well visualized. Venous The inferior vena cava was not well visualized. Measurements 2D Linear Measurements IVSd: 0.76 0.6-0.9/0.6-1.0 cm LVIDd: 4.70 3.9-5.3/4.2-5.9 cm LVIDd Index: 2.85 2.4-3.2/2.2-3.1 cm/m2 LVIDs: 3.96 2.0-3.6 cm LVPWd: 0.94 0.7-1.1 cm Ao Root: 3.00 2.1-3.5 cm LA Diam: 3.60 2.7-3.8/3.0-4.0 cm LAIDs Index: 2.18 1.5-2.3 cm/m2 LV Mass: 164.40 67-162/88-224 g LV Mass Index: 99.64 43-95/49-115 g/m2 LVOT Diam: 1.90 3.0+(-)1.3 cm Mitral Valve MV Pk E: 0.77 MV PK A: 0.31 MV Decel Time: 125.00 E/A: 2.50 E'Lateral: 10.70 E'Medial: 8.27 E/E' Med: 9.30 E/E' Lat: 7.20 PHT: 37.00 MVA PHT: 5.95 Decel [place]: 6.15 Aortic Valve AoV Pk Jose Armando: 0.95 AoV Mn Jose Armando: 0.53 AoV VTI: 0.22 AoV Pk Grad: 4.00 Aov Mn Grad: 1.00 WILL Cont.VTI: 1.62 LVOT LVOT Pk Joes Armando: 0.62 LVOT Mn Jose Armando: 0.43 LVOT VTI: 0.12 LVOT Pk Grad: 2.00 LVOT Mn Grad: 1.00 LVOT Diam: 1.90 LVOT Area: 2.84 Diastolic Function MV Pk E: 0.77 MV Pk A: 0.31 E/A: 2.50 E'Medial: 8.27 E/E' Med: 9.30 E' Laterial: 10.70 E/E' Lat: 7.20 Right Ventricle TAPSE (mm): 19.00 TVS' Jose Armando: 8.00 Tricuspid Valve TR Pk Jose Armando: 2.11 TR Pk Grad: 18.00 Great Vessels Aorta Ao Root-2D: 3.00 2.0-3.7 cm Pulmonary Valve PV Pk Jose Armando: 0.73 Peak PV Grad: 2.00 Updated in Other Vendor System with Status of Final Feng Dodson MD electronically signed on 10/16/2023 12:19:57 PM with status of Final
[2023-10-15 08:02] LABS: Glucose, Whole Blood 94 mg/dL (60-115)
[2023-10-15 09:01] LABS: Hematocrit 41.3 % (42.0-52.0); Hemoglobin 13.8 g/dl (14.0-18.0); Mean Corpuscular HGB Conc 33.4 g/dl (31.0-36.0); Mean Corpuscular Hemoglobin 31.2 pg (27.0-33.0); Mean Corpuscular Volume 93.2 fL (80.0-98.0); Mean Platelet Volume 11.8 fL (9.4-12.4); Platelet Count 163 X10*3/uL (160-400); Red Blood Count 4.43 X10*6/uL (4.60-5.80); Red Cell Distribution Width 13.7 % (11.0-16.0); White Blood Count 7.5 X10*3/uL (4.8-10.8)
[2023-10-15 10:07] LABS: Glucose, Whole Blood 103 mg/dL (60-115)
[2023-10-15] MEDS: Lactated Ringers 1,000 ML 75 ML IVCONT (10:17)
[2023-10-15] MEDS: levETIRAcetam in NaCl (iso-os) 500 MG/100 ML PIGGYBACK 400 MG IV ×2 (10:23→21:05)
[2023-10-15 12:16] LABS: Glucose, Whole Blood 142 mg/dL (60-115)
--- NOTE | 2023-10-15 13:10 | PM.PNCARD ---
Subjective Subjective Date of Service: 10/15/23 Principal diagnosis: Atrial fibrillation Interval history: No cardiac symptoms to report. Heart rate is better controlled. Review of Systems Review of Systems Yes Unobtainable due to mental status Physical Exam Vital Signs: Last Vital Signs Temp 96.9 F 10/15/23 11:39 Pulse 92 10/15/23 11:39 Resp 20 10/15/23 11:39 BP 123/74 10/15/23 11:39 Pulse Ox 99 10/15/23 11:39 O2 Del Method Room Air 10/15/23 11:39 BMI result Body Mass Index 24.3 Const General: comfortable and no acute distress Orientation/consciousness: No patient oriented x3 HEENT Other: Unremarkable Head: Yes normal to inspection Neck Neck: Yes normal visual inspection Chest Chest palpation & inspection: normal inspection of the chest Resp Auscultation: clear to auscultation bilaterally Cardio Palpation: normal PMI Rhythm: abnormal rhythm irregularly irregular Heart sounds: S1 normal heart sound present, S2 normal heart sound present, no gallops, no murmurs and no rubs GI Palpation (GI): Soft to palpation Back/Spine/Pelvis Other: unremarkable Skin General skin exam: no rashes or lesions noted Neuro General: No patient oriented x3 Extrem General: Yes normal to inspection Psych Mental Status: mental status grossly abnormal Objective Labs and Meds 10/15/23 08:27 10/15/23 05:10 Lab results: Laboratory Results - last 24 hr 10/14/23 10/14/23 10/14/23 14:36 15:54 17:06 WBC RBC Hgb Hct MCV MCH MCHC RDW Plt Count MPV Absolute Nucleated RBC Nucleated RBC % (auto) PT INR aPTT Heparin Protocol O2 Saturation 99.0 ABG pH at Pt Temp 7.41 ABG pCO2 at Pt Temp 24 L ABG pO2 at Pt Temp 102 ABG HCO3 16 L ABG Base Excess (Actual) -6.4 VBG pH VBG pCO2 VBG pO2 VBG HCO3 VBG O2 Saturation VBG Base Excess Sodium Potassium Chloride Carbon Dioxide Anion Gap BUN Creatinine Estim Creat Clear Calc Estimated GFR POC Glucose 156 H 158 H Random Glucose Calcium Total Bilirubin AST ALT Alkaline Phosphatase Total Protein Albumin Triglycerides Cholesterol LDL Cholesterol, Calc HDL Cholesterol 10/14/23 10/14/23 10/14/23 17:48 20:26 21:56 WBC RBC Hgb Hct MCV MCH MCHC RDW Plt Count MPV Absolute Nucleated RBC Nucleated RBC % (auto) PT INR aPTT Heparin Protocol 55.2 D O2 Saturation ABG pH at Pt Temp ABG pCO2 at Pt Temp ABG pO2 at Pt Temp ABG HCO3 ABG Base Excess (Actual) VBG pH VBG pCO2 VBG pO2 VBG HCO3 VBG O2 Saturation VBG Base Excess Sodium Potassium Chloride Carbon Dioxide Anion Gap BUN Creatinine Estim Creat Clear Calc Estimated GFR POC Glucose 174 H 215 H Random Glucose Calcium Total Bilirubin AST ALT Alkaline Phosphatase Total Protein Albumin Triglycerides Cholesterol LDL Cholesterol, Calc HDL Cholesterol 10/14/23 10/14/23 10/15/23 22:02 23:52 01:58 WBC RBC Hgb Hct MCV MCH MCHC RDW Plt Count MPV Absolute Nucleated RBC Nucleated RBC % (auto) PT INR aPTT Heparin Protocol O2 Saturation ABG pH at Pt Temp ABG pCO2 at Pt Temp ABG pO2 at Pt Temp ABG HCO3 ABG Base Excess (Actual) VBG pH VBG pCO2 VBG pO2 VBG HCO3 VBG O2 Saturation VBG Base Excess Sodium Potassium Chloride Carbon Dioxide Anion Gap BUN Creatinine Estim Creat Clear Calc Estimated GFR POC Glucose 203 H 148 H 134 H Random Glucose Calcium Total Bilirubin AST ALT Alkaline Phosphatase Total Protein Albumin Triglycerides Cholesterol LDL Cholesterol, Calc HDL Cholesterol 10/15/23 10/15/23 10/15/23 04:20 05:10 05:15 WBC RBC Hgb Hct MCV MCH MCHC RDW Plt Count MPV Absolute Nucleated RBC Nucleated RBC % (auto) PT 16.0 H INR 1.3 H aPTT Heparin Protocol 84.1 H D O2 Saturation ABG pH at Pt Temp ABG pCO2 at Pt Temp ABG pO2 at Pt Temp ABG HCO3 ABG Base Excess (Actual) VBG pH 7.47 H VBG pCO2 22 VBG pO2 85 VBG HCO3 16 L VBG O2 Saturation 99.0 VBG Base Excess -5.1 Sodium 139 Potassium 4.8 Chloride 114 H Carbon Dioxide 15 L Anion Gap 15 BUN 13 Creatinine 0.88 Estim Creat Clear Calc 52.9 Estimated GFR > 60 POC Glucose 102 Random Glucose 112 Calcium 8.9 Total Bilirubin 1.9 H AST 29 ALT 18 Alkaline Phosphatase 91 Total Protein 5.8 L Albumin 3.2 L Triglycerides 81 Cholesterol 101 LDL Cholesterol, Calc 53 HDL Cholesterol 32 L 10/15/23 10/15/2324 06:01 07:55 08:27 WBC 7.5 RBC 4.43 L Hgb 13.8 L Hct 41.3 L MCV 93.2 MCH 31.2 MCHC 33.4 RDW 13.7 Plt Count 163 D MPV 11.8 Absolute Nucleated RBC 0.000 Nucleated RBC % (auto) 0.0 PT INR aPTT Heparin Protocol O2 Saturation ABG pH at Pt Temp ABG pCO2 at Pt Temp ABG pO2 at Pt Temp ABG HCO3 ABG Base Excess (Actual) VBG pH VBG pCO2 VBG pO2 VBG HCO3 VBG O2 Saturation VBG Base Excess Sodium Potassium Chloride Carbon Dioxide Anion Gap BUN Creatinine Estim Creat Clear Calc Estimated GFR POC Glucose 108 94 Random Glucose Calcium Total Bilirubin AST ALT Alkaline Phosphatase Total Protein Albumin Triglycerides Cholesterol LDL Cholesterol, Calc HDL Cholesterol 10/15/23 10/15/23 10:03 12:09 WBC RBC Hgb Hct MCV MCH MCHC RDW Plt Count MPV Absolute Nucleated RBC Nucleated RBC % (auto) PT INR aPTT Heparin Protocol O2 Saturation ABG pH at Pt Temp ABG pCO2 at Pt Temp ABG pO2 at Pt Temp ABG HCO3 ABG Base Excess (Actual) VBG pH VBG pCO2 VBG pO2 VBG HCO3 VBG O2 Saturation VBG Base Excess Sodium Potassium Chloride Carbon Dioxide Anion Gap BUN Creatinine Estim Creat Clear Calc Estimated GFR POC Glucose 103 142 H Random Glucose Calcium Total Bilirubin AST ALT Alkaline Phosphatase Total Protein Albumin Triglycerides Cholesterol LDL Cholesterol, Calc HDL Cholesterol Imaging Radiologist's impression: Impressions Abdomen Ultrasound 10/14/23 08:25 IMPRESSION: 1. Echogenic mass like material within the gallbladder, favored to represent tumefactive sludge. No sonographic evidence of acute cholecystitis. 2. 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 Brain MRI 10/14/23 16:40 IMPRESSION: - Possible small acute infarct involving the left precentral gyrus near the hand region. No mass effect and no hemorrhagic transformation. - Extensive cerebral venous thrombosis involving the superior sagittal sinus, the torcula, the right transverse sinus, the medial most aspect of the left transverse sinus, the right sigmoid sinus, the right jugular bulb, and extending into the upper right cervical internal jugular vein again noted as discussed in detail on the 10/13/2023 CTA. Better seen on this MRI is an additional thrombosed cortical vein at the high right parietal convexity. 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 - There is global cerebral volume loss and there is moderate chronic microangiopathy. Progress Note: A&P Assessment and plan (1) Atrial fibrillation with rapid ventricular response: Status: Acute Assessment and Plan: Rate is much better controlled at this point time. From cardiac perspective continue rate control approach. Once ready switch to full oral anticoagulation if preferred can go to Eliquis 5 mg b.i.d. and/or Xarelto 20 mg daily. Discussed with patient's daughter who was present at bedside. Will sign of the case. Time Spent With Patient Time: Total time managing care of this patient today ____ minutes. Progress Note: Quality Stroke Does the patient have a stroke diagnosis?: Yes Reason for No Anti-thrombotic by Day Two: N/A - Med Ordered Procedures Date of Service Date of Service: 10/15/23
--- NOTE | 2023-10-15 13:32 | MHC.SL.SWA ---
Speech Pathologist Impression: Risk of aspiration, oropharyngeal dysphagia, dysarthria Risk of Aspiration Due to: Lethargy Neurological Condition Dysphasia Diet Status: UPGRADE from NPO, start on NDD3/NTL Liquid Consistency and Strategies for Safe Swallow: Liquid Intake Recommendation: [place] Thick Liquid Intake Strategies: Small Sips No Straws Solid Food Consistency: Dietary Recommendations: Chopped/Advanced (NDD3) Additional Modifications to Solid Foods: Patient seen for bedside dysphagia exam. Note slowed oral phase with intake of solids and coughing on thin liquid. Patient's recent brain MRI shows possible small acute infarct involving left precentral gyrus. Speech is also mildly dysarthric. Recommend start on CHOPPED/ADVANCED diet (NDD3) and NECTAR THICK liquids, CRUSHED pills in PUREE. Patient is encouraged independence self-feeding when possible, but will likely need assistance throughout feeding due to extremity weakness. Oral Medication Intake: Crushed with Puree Please contact the pharmacy regarding appropriate crushable or liquid drug formulations that are available whenever modified delivery is recommended. Compensatory Strategies and Precautions to be Taken for Safe Swallow: Sitting Upright (90 deg) Double Swallow No Straw Small Bites and Sips Alternate Liquids/Solids Rate of Ingestion Change Avoid Specific Foods Supervision While Eating and Drinking for Safe Swallow: Total Assistance (1:1) Foods to Avoid: Mixed textures; hard to chew foods Swallowing Recommended Treatments: Compens. Strategy Educat. Recommendation for Speech: Inpatient Speech Therapy Comment: [facility] will continue to follow to further assess speech/language/cognition and to monitor dysphagia. Frequency/Duration: M-F PRN Date Range for Service Req: Timeline to reassess: Route Driver Salesperson Clinican/Clinical Fellow: No Supervisory Statement: I have reviewed and agree with the student/clinical fellow's documentation: N/A Speech Language Pathologist: Rena Gomez M.A., CCC-[facility]
--- NOTE | 2023-10-15 16:22 | MHC.CM.PN ---
EMR reviewed and per MD rounds, pt is not medically cleared for discharge today. PT and OT evaluated pt today and are recommending STR. This CM called pts son/HCP Ferny to discuss the recommendation for STR. Per Ferny, his father has never been to STR and they do not have a place in mind. Being that the pt is not medically cleared today, Ferny would like to do some research in some facilities and can let us know tomorrow which facilities are preferred.
[2023-10-15 16:44] LABS: Glucose, Whole Blood 152 mg/dL (60-115)
--- NOTE | 2023-10-15 17:21 | P.PNIM_ITS ---
Subjective Subjective Date of Service: 10/15/23 Interval History: Cerebral venous thrombosis, seizure Review of Systems no new seisure episodes mental status seems similar able to tolerate some po Physical Exam 2 Vital Signs: Vital Signs: Last Vital Signs Temp 96.9 F 10/15/23 14:30 Pulse 76 10/15/23 14:30 Resp 20 10/15/23 14:30 BP 101/59 L 10/15/23 14:30 Pulse Ox 98 10/15/23 14:30 O2 Del Method Room Air 10/15/23 14:30 BMI result Body Mass Index 24.3 Appearance: Alert.? Oriented X2,somwhat improving today.? cvs: rrr, [id number] . res: clear to auscultation ,no rhonchii or wheezing abd: no rebound or guarding ,nt, bs present. ext pulses present , no cyanosis. neuro: axo3 , has right upper ext weakness especially weak on hand squeezing. otherwise moves allext Objective Data Active Medications Atorvastatin Calcium (Atorvastatin Calcium 80 Mg Tablet) 80 mg PO DAILY [facility] Last Admin: 10/15/23 08:34 Dose: Not Given Documented By: MILAGROS Non-Admin Reason: NPO Enoxaparin Sodium (Enoxaparin Sodium 60 Mg/0.6 Ml Syringe) 60 mg SUBCUT Q12H [facility] Fentanyl (Fentanyl 50 Mcg Patch.Td72) 50 mcg TRANSDERMA Q3D [facility] Last Admin: 10/14/23 16:58 Dose: 50 mcg Documented By: LORI Fentanyl (Fentanyl 100 Mcg Patch.Td72) 100 mcg TRANSDERMA Q3D [facility] Last Admin: 10/14/23 16:58 Dose: 100 mcg Documented By: LORI Glucose (Glucose Gel 15 Gm Gel..Gram.) 15 gm PO Q15M PRN; Protocol PRN Reason: per Hypoglycemia Standing Ord. Dextrose (D10) 250 mls @ 750 mls/hr IV Q15M PRN; Protocol PRN Reason: per Hypoglycemia Standing Ord. Last Infusion: 10/14/23 08:08 Dose: Infused Documented By: LORI Levetiracetam (Keppra) 500 mg in 100 mls @ 400 mls/hr IV Q12H [facility] Last Infusion: 10/15/23 11:05 Dose: Infused Documented By: MILAGROS Metoprolol Tartrate (Metoprolol Tartrate 12.5 Mg Halftab) 12.5 mg PO TID [facility]; Protocol Last Admin: 10/15/23 15:32 Dose: Not Given Documented By: LORI Non-Admin Reason: Decreased Heart Rate Pantoprazole Sodium (Pantoprazole Sodium 40 Mg/10 Ml Vial) 40 mg IVPUSH DAILY@0630 [facility] Last Admin: 10/15/23 05:18 Dose: 40 mg Documented By: CHRISTINE Sodium Bicarbonate (Sodium Bicarbonate 650 Mg Tablet) 650 mg PO BID [facility] Last Admin: 10/15/23 08:34 Dose: Not Given Documented By: MILAGROS Non-Admin Reason: NPO Comments: aware - pending speech consult Sodium Chloride (0.9 % Sodium Chloride Flush 3 Ml Syringe) 3 ml IVFLUSH QSHIFT [facility] Last Admin: 10/15/23 08:34 Dose: Not Given Documented By: MILAGROS Non-Admin Reason: IV Running Labs 10/15/23 08:27 10/15/23 05:10 Labs: Laboratory Results - last 24 hr 10/14/23 10/14/23 10/14/23 17:48 20:26 21:56 MCV MCH MCHC RDW Plt Count MPV Absolute Nucleated RBC Nucleated RBC % (auto) PT INR aPTT Heparin Protocol 55.2 D VBG pH VBG pCO2 VBG pO2 VBG HCO3 VBG O2 Saturation VBG Base Excess Anion Gap Estim Creat Clear Calc Estimated GFR POC Glucose 174 H 215 H Random Glucose Calcium Total Bilirubin AST ALT Alkaline Phosphatase Total Protein Albumin Triglycerides Cholesterol LDL Cholesterol, Calc HDL Cholesterol 10/14/23 10/14/23 10/15/23 22:02 23:52 01:58 MCV MCH MCHC RDW Plt Count MPV Absolute Nucleated RBC Nucleated RBC % (auto) PT INR aPTT Heparin Protocol VBG pH VBG pCO2 VBG pO2 VBG HCO3 VBG O2 Saturation VBG Base Excess Anion Gap Estim Creat Clear Calc Estimated GFR POC Glucose 203 H 148 H 134 H Random Glucose Calcium Total Bilirubin AST ALT Alkaline Phosphatase Total Protein Albumin Triglycerides Cholesterol LDL Cholesterol, Calc HDL Cholesterol 10/15/23 10/15/23 10/15/23 04:20 05:10 05:15 MCV MCH MCHC RDW Plt Count MPV Absolute Nucleated RBC Nucleated RBC % (auto) PT 16.0 H INR 1.3 H aPTT Heparin Protocol 84.1 H D VBG pH 7.47 H VBG pCO2 22 VBG pO2 85 VBG HCO3 16 L VBG O2 Saturation 99.0 VBG Base Excess -5.1 Anion Gap 15 Estim Creat Clear Calc 52.9 Estimated GFR > 60 POC Glucose 102 Random Glucose 112 Calcium 8.9 Total Bilirubin 1.9 H AST 29 ALT 18 Alkaline Phosphatase 91 Total Protein 5.8 L Albumin 3.2 L Triglycerides 81 Cholesterol 101 LDL Cholesterol, Calc 53 HDL Cholesterol 32 L 10/15/23 10/15/23 10/15/23 06:01 07:55 08:27 MCV 93.2 MCH 31.2 MCHC 33.4 RDW 13.7 Plt Count 163 D MPV 11.8 Absolute Nucleated RBC 0.000 Nucleated RBC % (auto) 0.0 PT INR aPTT Heparin Protocol VBG pH VBG pCO2 VBG pO2 VBG HCO3 VBG O2 Saturation VBG Base Excess Anion Gap Estim Creat Clear Calc Estimated GFR POC Glucose 108 94 Random Glucose Calcium Total Bilirubin AST ALT Alkaline Phosphatase Total Protein Albumin Triglycerides Cholesterol LDL Cholesterol, Calc HDL Cholesterol 10/15/23 10/15/23 10/15/23 10:03 12:09 16:34 MCV MCH MCHC RDW Plt Count MPV Absolute Nucleated RBC Nucleated RBC % (auto) PT INR aPTT Heparin Protocol VBG pH VBG pCO2 VBG pO2 VBG HCO3 VBG O2 Saturation VBG Base Excess Anion Gap Estim Creat Clear Calc Estimated GFR POC Glucose 103 142 H 152 H Random Glucose Calcium Total Bilirubin AST ALT Alkaline Phosphatase Total Protein Albumin Triglycerides Cholesterol LDL Cholesterol, Calc HDL Cholesterol Assessment and Plan (1) Cerebral venous thrombosis: Status: Acute (2) Seizure: Status: Acute (3) Atrial fibrillation with rapid ventricular response: Status: Acute Plan 83 y/o man admitted with: CVA ,extensive cerebral venous thrombosis, also pulmonary embolism: encephalopathy -sec to above ,similar. possible seizure episode cta-neg for stroke ,but has extensive cerebral venous thrombosis, also pulmonary embolism. Mri-Possible small acute infarct involving the left precentral gyrus nearthe hand region. No new seizure episodes neurochecks pt -str. Seizure precautions seen by hematology and neurology: Patient started on IV heparin-we may switch to s/c lovenox , continue statin, Keppra 500 b.i.d. IV speech and swallow rec:chopped /necter thick diet Hypoglycemia in setting of diabetes type 2:improving Hold oral hypoglycemic fs are 100-140 range started dm diet, no coverage below 200 mg/dl Possible subclinical hyperthyroidism: Low TSH, free t4 normal, free t3 pending . Urinary retention. s/p indwelling urinary catheter insertion . Elevated bilirubin. Recent diagnosis of gallbladder sludge. abdominal US-Echogenic mass like material within the gallbladder, favored to represent tumefactive sludge. Continue to monitor LFTs,denies abd pain family said-he was supposed to get cholecystectomy. History of pulmonary embolism- right-sided pulmonary emboli . CTA still shows pulmonary embolism On IV heparin new AFib : hr flactuates,has bradycardia consider low dose metoprolol if hr allows(above 100) cardiology -following Code status: Full DVT prophylaxis: s/c lovenox Ongoing hospitalization need: Cerebral venous thrombosis, pulmonary embolism, possible acute CVA: lovenox s/c, monitor fingersticks closely,moniter neurochecks, lft's . Quality Stroke Does the patient have a stroke diagnosis?: Yes Reason for No Anti-thrombotic by Day Two: N/A - Med Ordered VTE Prior VTE?: Yes VTE Risk Level:: Medical - moderate - high VTE Device Contraindication: Treatment Not Indicated VTE Drug Contraindication: N/A - Med Ordered
[2023-10-15] MEDS: Enoxaparin Sodium 60 MG/0.6 ML SYRINGE SUBCUT (18:17)
[2023-10-15] MEDS: 0.9 % Sodium Chloride Flush 3 ML SYRINGE IVFLUSH (18:17)
[2023-10-15 21:07] LABS: Glucose, Whole Blood 171 mg/dL (60-115)
[2023-10-15] MEDS: Sodium Bicarbonate 650 MG TABLET PO (21:08)
[2023-10-16] MEDS: 0.9 % Sodium Chloride Flush 3 ML SYRINGE IVFLUSH ×3 (01:04→11:34)
[2023-10-16] MEDS: Enoxaparin Sodium 60 MG/0.6 ML SYRINGE SUBCUT (01:06)
[2023-10-16 03:57] VITALS: BP 107/59; PULSE 75; RESP 16; TEMP 36.6; O2SAT 97
[2023-10-16] MEDS: Pantoprazole Sodium 40 MG/10 ML VIAL IVPUSH (06:19)
[2023-10-16 07:46] VITALS: BP 101/70; PULSE 54; RESP 16; TEMP 36.1; O2SAT 97
[2023-10-16] MEDS: Sodium Bicarbonate 650 MG TABLET PO ×2 (07:59→22:34)
[2023-10-16] MEDS: Tamsulosin HCL 0.4 MG CAPSULE PO (07:59)
[2023-10-16] MEDS: Atorvastatin Calcium 80 MG TABLET PO (07:59)
[2023-10-16 08:06] LABS: Glucose, Whole Blood 119 mg/dL (60-115)
[2023-10-16 08:58] LABS: Hematocrit 46.3 % (42.0-52.0); Hemoglobin 15.3 g/dl (14.0-18.0); Mean Corpuscular Volume 93.7 fL (80.0-98.0); Mean Platelet Volume 11.3 fL (9.4-12.4); Platelet Count 168 X10*3/uL (160-400); Red Blood Count 4.94 X10*6/uL (4.60-5.80); Red Cell Distribution Width 13.5 % (11.0-16.0)
[2023-10-16 09:08] LABS: Alanine Aminotransferase 16 U/L (0-40); Albumin Level 3.8 g/dL (3.5-5.0); Alkaline Phosphatase 109 U/L (39-117); Anion Gap 14 (12-20); Aspartate Amino Transferase 17 U/L (5-37); Bilirubin Total 1.4 mg/dL (0.0-1.0); Blood Urea Nitrogen 19 mg/dL (9-16); Calcium 9.5 mg/dL (8.4-10.2); Carbon Dioxide 18 mmol/L (22-29); Chloride 111 mmol/L (96-108); Creatinine Clr Calc Pharmacy 51.2; Estimated Glomerular Filt Rate > 60; Glucose Random 147 mg/dL (60-115); Potassium 4.7 mmol/L (3.3-5.1); Sodium 138 mmol/L (135-145); Total Protein 6.5 g/dL (6.5-8.0)
--- NOTE | 2023-10-16 10:45 | PM.PNCARD ---
Subjective Subjective Date of Service: 10/16/23 Principal diagnosis: Atrial fibrillation Interval history: Patient this morning noted to have a pause up to 7 seconds. No symptoms related to it. Metoprolol was discontinued last afternoon. Patient denies any lightheadedness. There was no hemodynamic instability. Remains in atrial fibrillation. Complains of speech difficulty otherwise he said he has no new symptoms. Review of Systems Review of Systems Yes Unobtainable due to mental status Physical Exam Vital Signs: Last Vital Signs Temp 97.0 F 10/16/23 07:46 Pulse 54 10/16/23 07:46 Resp 16 10/16/23 07:46 BP 101/70 10/16/23 07:46 Pulse Ox 97 10/16/23 07:46 O2 Del Method Room Air 10/16/23 07:46 O2 Flow Rate 2 10/16/23 03:57 BMI result Body Mass Index 24.3 Const General: comfortable and no acute distress Orientation/consciousness: No patient oriented x3 HEENT Other: Unremarkable Head: Yes normal to inspection Neck Neck: Yes normal visual inspection Chest Chest palpation & inspection: normal inspection of the chest Resp Auscultation: clear to auscultation bilaterally Cardio Palpation: normal PMI Rhythm: abnormal rhythm irregularly irregular Heart sounds: S1 normal heart sound present, S2 normal heart sound present, no gallops, no murmurs and no rubs GI Palpation (GI): Soft to palpation Back/Spine/Pelvis Other: unremarkable Skin General skin exam: no rashes or lesions noted Neuro General: No patient oriented x3 Extrem General: Yes normal to inspection Psych Mental Status: mental status grossly abnormal Objective Labs and Meds 10/16/23 08:36 10/16/23 08:36 Lab results: Laboratory Results - last 24 hr 10/15/23 10/15/23 10/15/23 12:09 16:34 21:00 WBC RBC Hgb Hct MCV MCH MCHC RDW Plt Count MPV Absolute Nucleated RBC Nucleated RBC % (auto) Sodium Potassium Chloride Carbon Dioxide Anion Gap BUN Creatinine Estim Creat Clear Calc Estimated GFR POC Glucose 142 H 152 H 171 H Random Glucose Calcium Total Bilirubin AST ALT Alkaline Phosphatase Total Protein Albumin 10/16/23 10/16/23 07:55 08:36 WBC 6.0 RBC 4.94 Hgb 15.3 Hct 46.3 MCV 93.7 MCH 31.0 MCHC 33.0 RDW 13.5 Plt Count 168 MPV 11.3 Absolute Nucleated RBC 0.000 Nucleated RBC % (auto) 0.0 Sodium 138 Potassium 4.7 Chloride 111 H Carbon Dioxide 18 L Anion Gap 14 BUN 19 H Creatinine 0.91 Estim Creat Clear Calc 51.2 Estimated GFR > 60 POC Glucose 119 H Random Glucose 147 H Calcium 9.5 D Total Bilirubin 1.4 H AST 17 ALT 16 Alkaline Phosphatase 109 Total Protein 6.5 Albumin 3.8 Progress Note: A&P Assessment and plan (1) Persistent atrial fibrillation: Status: Acute Assessment and Plan: Persistent atrial fibrillation, new onset. Noted to have new acute CVA on the MRI along with extensive cerebral venous thrombosis. Rate is may be over corrected and with residual effect of metoprolol from the last couple of days to control his fast heart rate. Will watch for 1 more day. If he continues to have significant pauses and bradycardia may need to consider pacing therapy although would be very conservative about this. Blood pressure is currently well optimized. Can switch to full oral anticoagulation. Will follow with you Time Spent With Patient Time: Total time managing care of this patient today ____ minutes. Progress Note: Quality Stroke Does the patient have a stroke diagnosis?: Yes Reason for No Anti-thrombotic by Day Two: N/A - Med Ordered Procedures Date of Service Date of Service: 10/16/23
[2023-10-16 11:13] LABS: Glucose, Whole Blood 155 mg/dL (60-115)
--- NOTE | 2023-10-16 11:27 | HO.PM.IMPN ---
Subjective Subjective Date of Service: 10/16/23 Interval History: seen and evaluated this morning Denies any complaints this morning noted to have few episodes of pauses on Telemetry, longest up to 7 seconds, asymptomatic No other events overnight Review of Systems Review of Systems: Yes all other systems are reviewed and are negative Physical Exam Vital Signs: Vital Signs: Last Vital Signs Temp 97.0 F 10/16/23 07:46 Pulse 54 10/16/23 07:46 Resp 16 10/16/23 07:46 BP 101/70 10/16/23 07:46 Pulse Ox 97 10/16/23 07:46 O2 Del Method Room Air 10/16/23 07:46 O2 Flow Rate 2 10/16/23 03:57 BMI result Body Mass Index 24.3 Const: Other: Constitutional : Awake, interactive, not in distress Neck : Normal inspection, Supple Cardiovascular : RRR, no JVP, no lower extremity edema Respiratory : good bilateral air entry, no crackles, wheezes or rhonchi Gastrointestinal: soft, lax, Normal bowel sounds, Non tender Skin : Warm, Dry Neurological : Alert & oriented x3, Mild RUE weakness , speech fluent but slow Objective Data Active Medications Atorvastatin Calcium (Atorvastatin Calcium 80 Mg Tablet) 80 mg PO DAILY [facility] Last Admin: 10/16/23 07:59 Dose: 80 mg Documented By: WILLIAM Enoxaparin Sodium (Enoxaparin Sodium 60 Mg/0.6 Ml Syringe) 60 mg SUBCUT Q12H [facility] Last Admin: 10/16/23 01:06 Dose: 60 mg Documented By: GÓMEZ Fentanyl (Fentanyl 50 Mcg Patch.Td72) 50 mcg TRANSDERMA Q3D [facility] Last Admin: 10/14/23 16:58 Dose: 50 mcg Documented By: LORI Fentanyl (Fentanyl 100 Mcg Patch.Td72) 100 mcg TRANSDERMA Q3D [facility] Last Admin: 10/14/23 16:58 Dose: 100 mcg Documented By: LORI Glucose (Glucose Gel 15 Gm Gel..Gram.) 15 gm PO Q15M PRN; Protocol PRN Reason: per Hypoglycemia Standing Ord. Levetiracetam (Keppra) 500 mg in 100 mls @ 400 mls/hr IV Q12H [facility] Last Infusion: 10/15/23 21:28 Dose: Infused Documented By: HO.LESSARL Melatonin (Melatonin 3 Mg Tablet) 6 mg PO BEDTIME PRN PRN Reason: Insomnia Pantoprazole Sodium (Pantoprazole Sodium 40 Mg/10 Ml Vial) 40 mg IVPUSH DAILY@0630 [facility] Last Admin: 10/16/23 06:19 Dose: 40 mg Documented By: GÓMEZ Sodium Bicarbonate (Sodium Bicarbonate 650 Mg Tablet) 650 mg PO BID [facility] Last Admin: 10/16/23 07:59 Dose: 650 mg Documented By: WILLIAM Sodium Chloride (0.9 % Sodium Chloride Flush 3 Ml Syringe) 3 ml IVFLUSH QSHIFT [facility] Last Admin: 10/16/23 07:59 Dose: 3 ml Documented By: WILLIAM Tamsulosin HCl (Tamsulosin Hcl 0.4 Mg Capsule) 0.4 mg PO DAILY [facility] Last Admin: 10/16/23 07:59 Dose: 0.4 mg Documented By: WILLIAM Labs 10/16/23 08:36 10/16/23 08:36 Labs: Laboratory Results - last 24 hr 10/15/23 10/15/23 10/15/23 12:09 16:34 21:00 MCV MCH MCHC RDW Plt Count MPV Absolute Nucleated RBC Nucleated RBC % (auto) Anion Gap Estim Creat Clear Calc Estimated GFR POC Glucose 142 H 152 H 171 H Random Glucose Calcium Total Bilirubin AST ALT Alkaline Phosphatase Total Protein Albumin 10/16/23 10/16/23 10/16/23 07:55 08:36 10:56 MCV 93.7 MCH 31.0 MCHC 33.0 RDW 13.5 Plt Count 168 MPV 11.3 Absolute Nucleated RBC 0.000 Nucleated RBC % (auto) 0.0 Anion Gap 14 Estim Creat Clear Calc 51.2 Estimated GFR > 60 POC Glucose 119 H 155 H Random Glucose 147 H Calcium 9.5 D Total Bilirubin 1.4 H AST 17 ALT 16 Alkaline Phosphatase 109 Total Protein 6.5 Albumin 3.8 Assessment and Plan (1) Persistent atrial fibrillation: Status: Acute (2) Cerebral venous thrombosis: Status: Acute (3) Seizure: Status: Acute (4) Atrial fibrillation with rapid ventricular response: Status: Acute (5) Sinus pause: Status: Acute Plan 83 y/o man admitted with: Acute CVA ,extensive cerebral venous thrombosis complicated by new seizures encephalopathy - improved to baseline, seems demented with baseline confusion CTA-neg for stroke ,but has extensive cerebral venous thrombosis, also pulmonary embolism. Mri-Possible small acute infarct involving the left precentral gyrus nearthe hand region. PT rec [facility] Neurology input appreciated, , Treat with Jeannette, change to PO Hematology input appreciated , Heparin IV, started on Lovenox, no will change to Eliquis 10 mg bid speech and swallow rec:chopped /necter thick diet new AFib with bradycardia and pauses Pauses up to 7 seconds this morning, asymptomatic DC all sinus blockers keep on Tele cardiology following, likely late effect from BB he was on. consider PPM if continues to have episodes History of pulmonary embolism- right-sided pulmonary emboli . CTA still shows pulmonary embolism No respiratory complaints Started on Eliquis 10 mg bid Hypoglycemia in diabetes type 2 no new episodes Hold oral hypoglycemic HbA1c of 6.4 started dm diet, no coverage below 200 mg/dl , range has been 100-150s Possible subclinical hyperthyroidism Low TSH, free t4 normal free t3 pending . Urinary retention. s/p indwelling urinary catheter insertion check PSA void trials Elevated bilirubin. seems to be chronic No reported abd pain abdominal US-Echogenic mass like material within the gallbladder, favored to represent tumefactive sludge. Recent diagnosis of gallbladder sludge with a plan for CCY per family Continue to monitor LFTs Code status: Full DVT prophylaxis: s/c lovenox The patient needs hospitalization for Cerebral venous thrombosis, pulmonary embolism, and acute CVA with recurrent cardiac pauses pending cardiology reeval and possible pacemaker placement Quality Stroke Does the patient have a stroke diagnosis?: Yes Reason for No Anti-thrombotic by Day Two: N/A - Med Ordered VTE Prior VTE?: Yes VTE Risk Level:: Medical - moderate - high VTE Device Contraindication: Treatment Not Indicated VTE Drug Contraindication: N/A - Med Ordered
[2023-10-16] MEDS: levETIRAcetam in NaCl (iso-os) 500 MG/100 ML PIGGYBACK 400 MG IV (11:34)
[2023-10-16 11:38] VITALS: BP 97/58; PULSE 86; RESP 16; TEMP 36; O2SAT 96
[2023-10-16] MEDS: Apixaban 5 MG TABLET 10 MG PO ×2 (12:23→22:31)
[2023-10-16 15:35] VITALS: BP 114/73; PULSE 69; RESP 16; TEMP 36.1; O2SAT 98
--- NOTE | 2023-10-16 15:53 | MHC.SLORD ---
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
[2023-10-16 16:47] LABS: Glucose, Whole Blood 197 mg/dL (60-115)
[2023-10-16] MEDS: Omeprazole 20 MG CAPSULE.DR PO (17:33)
--- NOTE | 2023-10-16 17:34 | PC.NURSE ---
al cath removed at 14:34.pt tolerated well and is due to void by 20:34
[2023-10-16 19:53] VITALS: BP 119/60; PULSE 92; RESP 18; TEMP 36.3; O2SAT 97
[2023-10-16 21:02] LABS: Glucose, Whole Blood 197 mg/dL (60-115)
[2023-10-16] MEDS: levETIRAcetam Oral Soln 500 MG/5 ML PO (23:32)
[2023-10-17] VITALS: BP 153/93; PULSE 106; RESP 18; TEMP 36.1; O2SAT 99
[2023-10-17 04:00] VITALS: BP 116/65; PULSE 72; RESP 17; TEMP 36.3; O2SAT 99
[2023-10-17] MEDS: 0.9 % Sodium Chloride Flush 3 ML SYRINGE IVFLUSH ×3 (04:51→20:44)
[2023-10-17 05:50] LABS: Hematocrit 42.8 % (42.0-52.0); Hemoglobin 14.3 g/dl (14.0-18.0); Mean Corpuscular HGB Conc 33.4 g/dl (31.0-36.0); Mean Corpuscular Hemoglobin 30.9 pg (27.0-33.0); Mean Corpuscular Volume 92.4 fL (80.0-98.0); Mean Platelet Volume 11.3 fL (9.4-12.4); Platelet Count 176 X10*3/uL (160-400); Red Blood Count 4.63 X10*6/uL (4.60-5.80); Red Cell Distribution Width 13.2 % (11.0-16.0); White Blood Count 5.8 X10*3/uL (4.8-10.8)
[2023-10-17 06:25] LABS: Anion Gap 14 (12-20); Blood Urea Nitrogen 15 mg/dL (9-16); Calcium 8.8 mg/dL (8.4-10.2); Carbon Dioxide 15 mmol/L (22-29); Chloride 115 mmol/L (96-108); Creatinine Clr Calc Pharmacy 57.5; Estimated Glomerular Filt Rate > 60; Glucose Random 185 mg/dL (60-115); Potassium 4.4 mmol/L (3.3-5.1); Sodium 140 mmol/L (135-145)
[2023-10-17 07:36] VITALS: BP 160/80; PULSE 73; RESP 19; TEMP 36.7; O2SAT 96
[2023-10-17 07:56] LABS: Glucose, Whole Blood 155 mg/dL (60-115)
[2023-10-17] MEDS: levETIRAcetam Oral Soln 500 MG/5 ML PO ×2 (08:50→20:45)
[2023-10-17] MEDS: Tamsulosin HCL 0.4 MG CAPSULE PO (08:51)
[2023-10-17] MEDS: Atorvastatin Calcium 80 MG TABLET PO (08:51)
[2023-10-17] MEDS: Apixaban 5 MG TABLET 10 MG PO ×2 (08:51→20:43)
[2023-10-17] MEDS: Sodium Bicarbonate 650 MG TABLET PO ×2 (08:51→20:44)
--- NOTE | 2023-10-17 09:10 | PM.PNCARD ---
Subjective Subjective Date of Service: 10/17/23 Principal diagnosis: Atrial fibrillation Interval history: Overnight and yesterday patient has significant pauses up to 7 seconds. Overnight after 17:00 he has had no significant pauses. Heart rate is well controlled. He denies any cardiac symptoms. No lightheadedness, syncope. He said his speech is better. Review of Systems Review of Systems Yes Unobtainable due to mental status Reports Abnormal speech present Physical Exam Vital Signs: Last Vital Signs Temp 98.0 F 10/17/23 07:36 Pulse 73 10/17/23 07:36 Resp 19 10/17/23 07:36 BP 160/80 H 10/17/23 07:36 Pulse Ox 96 10/17/23 07:36 O2 Del Method Room Air 10/17/23 07:36 O2 Flow Rate 2 10/16/23 03:57 BMI result Body Mass Index 24.3 Const General: cooperative, comfortable, no acute distress, alert and awake Neck Neck: Yes trachea midline, Yes supple and Yes no JVD Resp Effort & Inspection: normal respiratory effort Auscultation: clear to auscultation bilaterally Cardio Jugular venous distension: no JVD Rhythm: abnormal rhythm irregularly irregular Heart sounds: S1 normal heart sound present, S2 normal heart sound present, no click, no gallops and no murmurs GI Auscultation: normal bowel sounds Neuro Speech: Abnormal speech present Objective Labs and Meds 10/17/23 05:35 10/17/23 05:35 Lab results: Laboratory Results - last 24 hr 10/16/23 10/16/23 10/16/23 10:56 16:41 20:52 WBC RBC Hgb Hct MCV MCH MCHC RDW Plt Count MPV Absolute Nucleated RBC Nucleated RBC % (auto) Sodium Potassium Chloride Carbon Dioxide Anion Gap BUN Creatinine Estim Creat Clear Calc Estimated GFR POC Glucose 155 H 197 H 197 H Random Glucose Calcium 10/17/23 10/17/23 05:35 07:52 WBC 5.8 RBC 4.63 Hgb 14.3 Hct 42.8 MCV 92.4 MCH 30.9 MCHC 33.4 RDW 13.2 Plt Count 176 MPV 11.3 Absolute Nucleated RBC 0.000 Nucleated RBC % (auto) 0.0 Sodium 140 Potassium 4.4 Chloride 115 H Carbon Dioxide 15 L Anion Gap 14 BUN 15 Creatinine 0.81 Estim Creat Clear Calc 57.5 Estimated GFR > 60 POC Glucose 155 H Random Glucose 185 H Calcium 8.8 D Progress Note: A&P Assessment and plan (1) Persistent atrial fibrillation: Status: Acute Assessment and Plan: Persistent atrial fibrillation with rapid ventricular rate on admission. Since then he was treated with metoprolol and yesterday had significant slow heart rate and pauses. Overnight after stopping metoprolol he has not had any significant pauses. Continue monitor for 1 more day. I do not think he requires pacing therapy at this point time. This was discussed with him and his daughter at bedside. Continue full oral anticoagulation. Would avoid rate control medications. Will follow with you Time Spent With Patient Time: Total time managing care of this patient today ____ minutes. Progress Note: Quality Stroke Does the patient have a stroke diagnosis?: Yes Reason for No Anti-thrombotic by Day Two: N/A - Med Ordered Procedures Date of Service Date of Service: 10/17/23
--- NOTE | 2023-10-17 11:10 | HO.PM.IMPN ---
Subjective Subjective Date of Service: 10/17/23 Interval History: had 6 second pause this morning Neurologic Neurologic: Reports Abnormal speech present Physical Exam Vital Signs: Vital Signs: Last Vital Signs Temp 98.0 F 10/17/23 07:36 Pulse 73 10/17/23 07:36 Resp 19 10/17/23 07:36 BP 160/80 H 10/17/23 07:36 Pulse Ox 96 10/17/23 07:36 O2 Del Method Room Air 10/17/23 07:36 O2 Flow Rate 2 10/16/23 03:57 BMI result Body Mass Index 24.3 Const: General: cooperative, comfortable, no acute distress, alert and awake Neck: Neck: Yes trachea midline, Yes supple and Yes no JVD Resp: Effort & Inspection: normal respiratory effort Auscultation: clear to auscultation bilaterally Cardio: Jugular venous distension: no JVD Rhythm: abnormal rhythm irregularly irregular Heart sounds: S1 normal heart sound present, S2 normal heart sound present, no click, no gallops and no murmurs GI: Auscultation: normal bowel sounds Neuro: Speech: Abnormal speech present Objective Data Active Medications Apixaban (Apixaban 5 Mg Tablet) 10 mg PO BID [facility] Last Admin: 10/17/23 08:51 Dose: 10 mg Documented By: WILLIAM Atorvastatin Calcium (Atorvastatin Calcium 80 Mg Tablet) 80 mg PO DAILY [facility] Last Admin: 10/17/23 08:51 Dose: 80 mg Documented By: WILLIAM Fentanyl (Fentanyl 100 Mcg Patch.Td72) 100 mcg TRANSDERMA Q3D [facility] Fentanyl (Fentanyl 50 Mcg Patch.Td72) 50 mcg TRANSDERMA Q3D [facility] Glucose (Glucose Gel 15 Gm Gel..Gram.) 15 gm PO Q15M PRN; Protocol PRN Reason: per Hypoglycemia Standing Ord. Levetiracetam (Levetiracetam Oral Soln 500 Mg/5 Ml) 500 mg PO BID [facility] Last Admin: 10/17/23 08:50 Dose: 500 mg Documented By: WILLIAM Melatonin (Melatonin 3 Mg Tablet) 6 mg PO BEDTIME PRN PRN Reason: Insomnia Omeprazole (Omeprazole 20 Mg Capsule.) 20 mg PO BID@0630,1630 [facility] Last Admin: 10/17/23 06:25 Dose: Not Given Documented By: JONATHAN Non-Admin Reason: Medication Discontinued Sodium Bicarbonate (Sodium Bicarbonate 650 Mg Tablet) 650 mg PO BID [facility] Last Admin: 10/17/23 08:51 Dose: 650 mg Documented By: WILLIAM Sodium Chloride (0.9 % Sodium Chloride Flush 3 Ml Syringe) 3 ml IVFLUSH QSHIFT [facility] Last Admin: 10/17/23 04:51 Dose: 3 ml Documented By: TAITC Tamsulosin HCl (Tamsulosin Hcl 0.4 Mg Capsule) 0.4 mg PO DAILY [facility] Last Admin: 10/17/23 08:51 Dose: 0.4 mg Documented By: WILLIAM Labs 10/17/23 05:35 10/17/23 05:35 Labs: Laboratory Results - last 24 hr 10/16/23 10/16/23 10/16/23 10:56 16:41 20:52 MCV MCH MCHC RDW Plt Count MPV Absolute Nucleated RBC Nucleated RBC % (auto) Anion Gap Estim Creat Clear Calc Estimated GFR POC Glucose 155 H 197 H 197 H Random Glucose Calcium 10/17/23 10/17/23 05:35 07:52 MCV 92.4 MCH 30.9 MCHC 33.4 RDW 13.2 Plt Count 176 MPV 11.3 Absolute Nucleated RBC 0.000 Nucleated RBC % (auto) 0.0 Anion Gap 14 Estim Creat Clear Calc 57.5 Estimated GFR > 60 POC Glucose 155 H Random Glucose 185 H Calcium 8.8 D Assessment and Plan (1) Persistent atrial fibrillation: Status: Acute (2) Cerebral venous thrombosis: Status: Acute (3) Seizure: Status: Acute (4) Atrial fibrillation with rapid ventricular response: Status: Acute (5) Sinus pause: Status: Inactive Plan 83M past medical history significant for type 2 diabetes mellitus on insulin + glipizide, pulmonary embolism on Xarelto, and essential hypertension presented with right-sided weakness and aphasia, in ED had seizure, found to have acute CVA and extensive cerebral venous thrombosis Acute CVA ,extensive cerebral venous thrombosis complicated by new seizures encephalopathy - improved to baseline (has some baseline confusion) PT rec STR Neurology input appreciated, Keppra, anticoagulation, high-dose statin Hematology input appreciated -likely provoked by interrupted Xarelto, continue Eliquis 10 mg bid - will lower to 5 mg b.i.d. 10/20/2023 speech and swallow rec:chopped /nectar thick diet new AFib with bradycardia and pauses Pauses up to 7 seconds asymptomatic Not on any AV zuleika blockade since 10/14/23 keep on Tele cardiology following, possible plan for ppm History of pulmonary embolism- right-sided pulmonary emboli . CTA still shows pulmonary embolism No respiratory complaints eliquis Hypoglycemia in diabetes type 2 no new episodes Hold oral hypoglycemic HbA1c of 6.4 started dm diet, no coverage below 200 mg/dl , range has been 100-150s Possible subclinical hyperthyroidism Low TSH, free t4 normal free t3 pending . BPH flomax Elevated bilirubin. seems to be chronic No reported abd pain abdominal US-Echogenic mass like material within the gallbladder, favored to represent tumefactive sludge. Recent diagnosis of gallbladder sludge with a plan for CCY per family Continue to monitor LFTs DNR/DNI DVT prophylaxis: eliquis reason for continued hospitalization: pauses Quality Stroke Does the patient have a stroke diagnosis?: Yes Reason for No Anti-thrombotic by Day Two: N/A - Med Ordered VTE Prior VTE?: Yes VTE Risk Level:: Medical - moderate - high VTE Device Contraindication: Treatment Not Indicated VTE Drug Contraindication: N/A - Med Ordered
[2023-10-17 11:28] LABS: Glucose, Whole Blood 217 mg/dL (60-115)
[2023-10-17 11:33] VITALS: BP 110/69; PULSE 93; RESP 19; TEMP 36.7; O2SAT 97
--- NOTE | 2023-10-17 14:06 | MHC.SLORD ---
Speech Language Pathology Order Status: FOOD PRODUCTS TESTER attempted to see pt this afternoon. Pt's daughter at bedside declined [employer]ODU[employer] TESTER d/t pt being in pain. RN reports pt not due for additional pain meds until later this evening. Pt's daughter reports pt tolerating diet. RN reports no concern for diet and toleration of crushed pills. FOOD PRODUCTS TESTER to visit pt tomorrow for dysphagia re-rosalba and alia navarrete.
[2023-10-17] MEDS: oxyCODONE HCl Immed Release 5 MG TABLET PO (14:29)
[2023-10-17 15:30] VITALS: BP 136/73; PULSE 85; RESP 20; TEMP 36.1; O2SAT 98
--- NOTE | 2023-10-17 16:00 | MHC.CM.PN ---
EMR reviewed and per MD rounds, pt is not medically cleared for discharge, and may need pacemaker inserted. DCP TBD: STR vs home with new services. PT and OT continue to recommend STR for pt at discharge. This CM met with pt and his son/HCP Ferny at bedside to discuss discharge plan. Pt states he does not want to go to STR, and would like to go home with services. Pts son would like him to go to rehab. Per pts son the preferences for STR are 1. [facility] [place], 2. [facility] [place], and 3. [facility]. [facility], will also place in referral to [facility]. Pt and his son will continue to discuss the options.
[2023-10-17 16:07] LABS: Glucose, Whole Blood 197 mg/dL (60-115)
[2023-10-17] MEDS: fentaNYL 50 MCG PATCH.TD72 TRANSDERMA (16:45)
[2023-10-17] MEDS: fentaNYL 100 MCG PATCH.TD72 TRANSDERMA (16:55)
[2023-10-17] MEDS: Omeprazole 20 MG CAPSULE.DR PO (16:55)
[2023-10-17 19:41] VITALS: BP 113/63; PULSE 59; RESP 16; TEMP 37.1; O2SAT 97
[2023-10-17 21:07] LABS: Glucose, Whole Blood 262 mg/dL (60-115)
[2023-10-18] VITALS (7 sets, daily range): BP systolic 118–156; BP diastolic 65–92; PULSE 62–94; RESP 16–20; TEMP 36.2–37.8; O2SAT 96–100
[2023-10-18] MEDS: Omeprazole 20 MG CAPSULE.DR PO ×2 (06:37→16:13)
[2023-10-18 08:31] LABS: Glucose, Whole Blood 153 mg/dL (60-115)
--- NOTE | 2023-10-18 08:34 | MHC.SPEECHCO ---
Per Dr. Krueger, patient is scheduled tentatively for pacemaker placement and is NPO today. No PO trials given this date. [employer] YACHT will f/u after procedure once patient is cleared to resume PO.
--- NOTE | 2023-10-18 09:40 | P.PNIM_ITS ---
Subjective Subjective Date of Service: 10/18/23 Interval History: some ester early AM, no significant pauses Neurologic Neurologic: Reports Abnormal speech present Physical Exam 2 Vital Signs: Vital Signs: Last Vital Signs Temp 97.4 F 10/18/23 08:00 Pulse 62 10/18/23 08:00 Resp 20 10/18/23 08:00 BP 150/71 H 10/18/23 08:00 Pulse Ox 98 10/18/23 08:00 O2 Del Method Room Air 10/18/23 08:00 O2 Flow Rate 2 10/16/23 03:57 BMI result Body Mass Index 24.3 Const: General: cooperative, comfortable, no acute distress, alert and awake Neck: Neck: Yes trachea midline, Yes supple and Yes no JVD Resp: Effort & Inspection: normal respiratory effort Auscultation: clear to auscultation bilaterally Cardio: Jugular venous distension: no JVD Rhythm: abnormal rhythm irregularly irregular Heart sounds: S1 normal heart sound present, S2 normal heart sound present, no click, no gallops and no murmurs GI: Auscultation: normal bowel sounds Neuro: Speech: Abnormal speech present Objective Data Active Medications Apixaban (Apixaban 5 Mg Tablet) 10 mg PO BID [facility] Last Admin: 10/17/23 20:43 Dose: 10 mg Documented By: GAVIOTA Atorvastatin Calcium (Atorvastatin Calcium 80 Mg Tablet) 80 mg PO DAILY [facility] Last Admin: 10/17/23 08:51 Dose: 80 mg Documented By: WILLIAM Fentanyl (Fentanyl 100 Mcg Patch.Td72) 100 mcg TRANSDERMA Q3D [facility] Last Admin: 10/17/23 16:55 Dose: 100 mcg Documented By: WILLIAM Fentanyl (Fentanyl 50 Mcg Patch.Td72) 50 mcg TRANSDERMA Q3D [facility] Last Admin: 10/17/23 16:45 Dose: 50 mcg Documented By: WILLIAM Glucose (Glucose Gel 15 Gm Gel..Gram.) 15 gm PO Q15M PRN; Protocol PRN Reason: per Hypoglycemia Standing Ord. Glucose (Glucose Gel 15 Gm Gel..Gram.) 15 gm PO Q15M PRN; Protocol PRN Reason: per Hypoglycemia Standing Ord. Dextrose (D10) 250 mls @ 750 mls/hr IV Q15M PRN; Protocol PRN Reason: per Hypoglycemia Standing Ord. Insulin Human Lispro (Insulin Lispro 100 Unit/Ml 3 Ml Vial) 0 unit SUBCUT QIDACHS [facility]; Protocol Levetiracetam (Levetiracetam Oral Soln 500 Mg/5 Ml) 500 mg PO BID [facility] Last Admin: 10/17/23 20:45 Dose: 500 mg Documented By: GAVIOTA Melatonin (Melatonin 3 Mg Tablet) 6 mg PO BEDTIME PRN PRN Reason: Insomnia Omeprazole (Omeprazole 20 Mg Capsule.) 20 mg PO BID@0630,1630 [facility] Last Admin: 10/18/23 06:37 Dose: 20 mg Documented By: GAVIOTA Sodium Bicarbonate (Sodium Bicarbonate 650 Mg Tablet) 650 mg PO BID [facility] Last Admin: 10/17/23 20:44 Dose: 650 mg Documented By: GAVIOTA Sodium Chloride (0.9 % Sodium Chloride Flush 3 Ml Syringe) 3 ml IVFLUSH QSHIFT [facility] Last Admin: 10/17/23 20:44 Dose: 3 ml Documented By: GAVIOTA Tamsulosin HCl (Tamsulosin Hcl 0.4 Mg Capsule) 0.4 mg PO DAILY [facility] Last Admin: 10/17/23 08:51 Dose: 0.4 mg Documented By: FOSTEKR Labs 10/17/23 05:35 10/17/23 05:35 Labs: Laboratory Results - last 24 hr 10/17/23 10/17/23 10/17/23 11:21 15:58 20:56 POC Glucose 217 H 197 H 262 H 10/18/23 08:02 POC Glucose 153 H Assessment and Plan (1) Persistent atrial fibrillation: Status: Acute (2) Cerebral venous thrombosis: Status: Acute (3) Seizure: Status: Acute (4) Atrial fibrillation with rapid ventricular response: Status: Acute (5) Sinus pause: Status: Inactive Plan 83M past medical history significant for type 2 diabetes mellitus on insulin + glipizide, pulmonary embolism on Xarelto, and essential hypertension presented with right-sided weakness and aphasia, in ED had seizure, found to have acute CVA and extensive cerebral venous thrombosis Acute CVA ,extensive cerebral venous thrombosis complicated by new seizures encephalopathy - improved to baseline (has some baseline confusion) PT rec STR Neurology input appreciated, Keppra, anticoagulation, high-dose statin Hematology input appreciated -likely provoked by interrupted Xarelto, continue Eliquis 10 mg bid - will lower to 5 mg b.i.d. 10/20/2023 speech and swallow rec:chopped /nectar thick diet new AFib with bradycardia and pauses Pauses up to 7 seconds asymptomatic Not on any AV zuleika blockade since 10/14/23 keep on Tele cardiology following, possible plan for ppm History of pulmonary embolism- right-sided pulmonary emboli . CTA still shows pulmonary embolism No respiratory complaints eliquis Hypoglycemia in diabetes type 2 no new episodes Hold oral hypoglycemic HbA1c of 6.4 started dm diet, no coverage below 200 mg/dl , range has been 100-150s Possible subclinical hyperthyroidism Low TSH, free t4 normal free t3 pending . BPH flomax Elevated bilirubin. seems to be chronic No reported abd pain abdominal US-Echogenic mass like material within the gallbladder, favored to represent tumefactive sludge. Recent diagnosis of gallbladder sludge with a plan for CCY per family Continue to monitor LFTs DNR/DNI DVT prophylaxis: eliquis reason for continued hospitalization: ester, pauses, ?pacer Quality Stroke Does the patient have a stroke diagnosis?: Yes Reason for No Anti-thrombotic by Day Two: N/A - Med Ordered VTE Prior VTE?: Yes VTE Risk Level:: Medical - moderate - high VTE Device Contraindication: Treatment Not Indicated VTE Drug Contraindication: N/A - Med Ordered
[2023-10-18 11:27] LABS: Glucose, Whole Blood 166 mg/dL (60-115)
--- NOTE | 2023-10-18 11:35 | PM.PNCARD ---
Subjective Subjective Date of Service: 10/18/23 Principal diagnosis: Atrial fibrillation Interval history: No cardiac symptoms to report. Denies palpitations or light headednss. Overnight noted to have slow VR to AF Review of Systems Constitutional: Reports no additional constitutional complaints Cardiovascular: Reports no additional cardiovascular complaints Reports system reviewed and no additional complaints, except as documented and Reports Abnormal speech present Psychiatric: Reports no additional psychiatric complaints Physical Exam Vital Signs: Last Vital Signs Temp 98.3 F 10/18/23 11:16 Pulse 77 10/18/23 11:16 Resp 20 10/18/23 11:16 BP 135/86 10/18/23 11:16 Pulse Ox 99 10/18/23 11:16 O2 Del Method Room Air 10/18/23 11:16 O2 Flow Rate 2 10/16/23 03:57 BMI result Body Mass Index 24.3 Const General: cooperative, comfortable, no acute distress, alert and awake Neck Neck: Yes trachea midline, Yes supple and Yes no JVD Resp Effort & Inspection: normal respiratory effort Auscultation: clear to auscultation bilaterally Cardio Jugular venous distension: no JVD Rhythm: abnormal rhythm irregularly irregular Heart sounds: S1 normal heart sound present, S2 normal heart sound present, no click, no gallops and no murmurs GI Auscultation: normal bowel sounds Neuro Speech: Abnormal speech present Objective Labs and Meds 10/17/23 05:35 10/17/23 05:35 Lab results: Laboratory Results - last 24 hr 10/17/23 10/17/23 10/18/23 15:58 20:56 08:02 POC Glucose 197 H 262 H 153 H 10/18/23 11:17 POC Glucose 166 H Progress Note: A&P Assessment and plan (1) Persistent atrial fibrillation: Status: Acute Assessment and Plan: Persistent atrial fibrillation with slow ventricular response overnight but without any obvious symptoms. I feel clinically patient does not have any need for pacemaker at this point time but will need to be monitored with outpatient cardiac event monitoring with mobile telemetry to further assess for the same. Continue full oral anticoagulation, currently on Xarelto. Avoid rate lowering medications. Patient can be discharged from cardiac perspective. Time Spent With Patient Time: Total time managing care of this patient today ____ minutes. Progress Note: Quality Stroke Does the patient have a stroke diagnosis?: Yes Reason for No Anti-thrombotic by Day Two: N/A - Med Ordered Procedures Date of Service Date of Service: 10/18/23
[2023-10-18] MEDS: Atorvastatin Calcium 80 MG TABLET PO (12:42)
[2023-10-18] MEDS: Sodium Bicarbonate 650 MG TABLET PO ×2 (12:42→20:23)
[2023-10-18] MEDS: levETIRAcetam Oral Soln 500 MG/5 ML PO ×2 (12:42→20:23)
[2023-10-18] MEDS: Tamsulosin HCL 0.4 MG CAPSULE PO (12:42)
[2023-10-18] MEDS: Apixaban 5 MG TABLET 10 MG PO ×2 (12:43→20:22)
[2023-10-18] MEDS: 0.9 % Sodium Chloride Flush 3 ML SYRINGE IVFLUSH ×3 (12:43→20:23)
[2023-10-18] MEDS: Insulin Lispro 100 UNIT/ML 3 ML VIAL SUBCUT ×3 (12:47→22:06)
--- NOTE | 2023-10-18 14:17 | PM.DS ---
DS: Providers Provider Date of Service: 10/20/23 Date of admission: 10/14/23 02:08 Primary care physician: Erik Perkins MD Consults: 10/14/23 02:09 Consult to Neurology Routine Consulting Provider: David Crawford Reason for consultation: stroke, cerebral venous thrombosis extensive on cta Has provider been notified: No 10/14/23 10:12 Consult to Hematology / Oncology Routine Consulting Provider: [facility] Oncology/Hematology Reason for consultation: Cerebral venous thrombosis Has provider been notified: Yes 10/14/23 10:41 Consult to Cardiology Routine Consulting Provider: [facility] Reason for consultation: new afib ,st chnages ,low tsh. Has provider been notified: No DS: Diagnosis Discharge Diagnosis (1) Persistent atrial fibrillation: Status: Acute DS: Summary Hospital Course Hospital Course: from initial hpi: Ferny Barron is 83 years old man with past medical history significant for type 2 diabetes mellitus on insulin + glipizide pulmonary embolism on Xarelto and essential hypertension was brought to the emergency department via EMS as a stroke alert. Patient was found have a glucose of 45 received treatment with deep 10 and glucagon. He was noted to have right facial droop and right-sided weakness. Family members were at bedside: Granddaughter and daughter. They provided most of the HPI. They stated that the last time he was seen normal was Sunday at 8 pm. They said that he was just at [facility] for altered mental status and found to be hypoglycemic. He was having gastrointestinal symptoms and has not been eating well. He was found to have sludge in his gallbladder without cholecystitis and was discharged have follow-up with surgery as an outpatient. After he arrived to his home he went to bed and stayed there all day. The patient has no history of prior strokes. On evaluation, the patient's seems to be very confused and restless. While performing physical examination the patient remained for several minutes with a blank stare, barely responsive and stiff. Blood glucose stat was obtained = 73 During this episode I noted that his heart rate increases to the 120 sustaining. In the ED, low-grade sinus tachycardia and hypertension was noted. Blood pressure was 147/84. Blood workup is remarkable for leukocytosis of 13,000. Hemoglobin and platelets are normal. INR is 1.3. Blood workup was remarkable for low bicarb of 18. No other electrolyte imbalances. BUN is 25 and creatinine 1.08. TSH less than 0.01. ECG showed atrial fibrillation with rapid ventricular response, HR 113 bpm. CXR showed low lung volumes with mild dependent atelectasis and no acute pulmonary changes. His CT scan showed no acute intracranial hemorrhage or territorial infarction. Head and neck CTA showed no high-grade stenosis or proximal occlusion of the vasculature of the head and neck, evaluation of cervical artery separately limited by motion artifact. hospital course: Patient was admitted for acute CVA complicated by extensive cerebral venous thrombosis and new onset seizure. As well as acute metabolic encephalopathy. Patient's mental status returned to baseline which includes some baseline confusion/dementia. He was seen by neurology recommended Keppra, anticoagulation, high-dose statin. Was seen by Hematology who felt this was likely provoked due to interrupted Xarelto. Recommended switching to Eliquis loading with 10 mg b.i.d. and then on 10/20/2023 decreasing to 5 mg b.i.d.. Was seen by speech for dysphagia and recommended chopped solids and nectar thick liquids can continue to follow with speech to advance diet. Was seen by physical therapy recommended rehab. Also noted to have new onset atrial fibrillation with bradycardia. successfully underwent pacer placement on 10/19/23. For history of pulmonary embolism will continue Eliquis. For diabetes, patient had episodes of hypoglycemia. His glipizide and glargine were held. On discharge will start metformin 500 mg b.i.d.. Patient noted to have low TSH without symptoms, free T4 was normal, free T3 was drawn and is pending, this should be followed up. For BPH was started on Flomax. Time Attestation Discharge Coordination Time (in mins): 37 Quality: Safe Use of Opioids Does Pt have an Active Cancer Diagnosis on the Problem List?: No Quality: Stroke Does the patient have a stroke diagnosis?: Yes Reason for No Anti-thrombotic at DC: Drug treatment not indicated Reason for No Anticoagulant at DC: N/A - Med Ordered Reason Not Initiating IV-Tpa: Drug treatment not indicated Reason for No Anti-thrombotic by Day Two: Drug treatment not indicated Reason for No Statin at DC: N/A - Med Ordered Physical Exam Vital Signs: Vital Signs: Last Vital Signs Temp 98.3 F 10/18/23 11:16 Pulse 77 10/18/23 11:16 Resp 20 10/18/23 11:16 BP 135/86 10/18/23 11:16 Pulse Ox 99 10/18/23 11:16 O2 Del Method Room Air 10/18/23 11:16 O2 Flow Rate 2 10/16/23 03:57 BMI result Body Mass Index 24.3 Const: General: cooperative, comfortable, no acute distress, alert and awake Neck: Neck: Yes trachea midline, Yes supple and Yes no JVD Resp: Effort & Inspection: normal respiratory effort Auscultation: clear to auscultation bilaterally Cardio: Jugular venous distension: no JVD Rhythm: abnormal rhythm irregularly irregular Heart sounds: S1 normal heart sound present, S2 normal heart sound present, no click, no gallops and no murmurs GI: Auscultation: normal bowel sounds Neuro: Speech: Abnormal speech present DS: Data Data Completed and Pending Labs on day of discharge: Laboratory Results - last 24 hr 10/17/23 10/17/23 10/18/23 15:58 20:56 08:02 POC Glucose 197 H 262 H 153 H 10/18/23 11:17 POC Glucose 166 H Discharge Plan Discharge Anticipated Discharge Date/Time: 10/18/23 14:13 Patient Disposition: Xfer SNF Discharge Diagnosis: cva, cereberal venous thrombosus, bradycardia Referrals: Erik Perkins MD [Primary Care Provider] - 1 Week Discharge Medications: New tamsulosin 0.4 mg Capsule 0.4 mg PO DAILY Qty: 0 0RF atorvastatin 80 mg Tablet 80 mg PO DAILY Qty: 0 0RF sodium bicarbonate 650 mg Tablet 650 mg PO BID Qty: 0 0RF omeprazole 20 mg Capsule,Delayed Release(Dr/Ec) 20 mg PO BID@0630,1630 Qty: 0 0RF levetiracetam 500 mg/5 mL (5 mL) Solution 500 mg PO BID Qty: 0 0RF metformin 500 mg tablet 500 mg PO BIDWMEAL Qty: 60 0RF Eliquis 5 mg Tablet 5 mg PO BID Qty: 0 0RF Continued fentanyl 50 mcg/hr patch 72 hour 1 patch topical Q3D fentanyl 100 mcg/hr patch 72 hour 1 patch topical Q3D amlodipine 10 mg tablet 10 mg PO DAILY lisinopril 10 mg tablet 10 mg PO DAILY Discontinued glipizide 10 mg tablet 10 mg PO DAILY insulin glargine [Basaglar MckenziePen U-100 Insulin] 100 unit/mL (3 mL) insulin pen 30 unit subcut DAILY Xarelto 10 mg tablet 10 mg PO DAILY Discharge Orders: Discharge Order (Routine); Ordered 10/20/23 Ordered By: Ramesh Krueger Diet: ndd2 solid, nectar thick Activity on Discharge: As tolerated Stand Alone Forms: Patient Portal Discharge page Print Language: Bulgarian Care Plan Goals: recovery Health Concerns: stroke, cerebral venous thrombosus, slow heart rate Plan of Treatment: med changes as prescribed, lower eliquis to 5mg bid on 10/20/23, follow up with cardiology Assessment: see above
--- NOTE | 2023-10-18 15:10 | MHC.CM.PN ---
IMM 10/18/23 Patient received a bed offer from [facility]. He has accepted the bed. His dog David will be able to visit him at the facility. Patient will transport via BLS at 4pm today.
[2023-10-18 16:01] LABS: Glucose, Whole Blood 193 mg/dL (60-115)
[2023-10-18] MEDS: Acetaminophen 325 MG TABLET 650 MG PO (16:13)
--- NOTE | 2023-10-18 18:39 | PM.EVENT ---
Event Note Date of Service: 10/18/23 Event Note: patient reporting new headache, will get stat CTH Time Spent With Patient Time: Total time managing care of this patient today ____ minutes.
[2023-10-18 21:25] LABS: Glucose, Whole Blood 258 mg/dL (60-115)
[2023-10-18] MEDS: Melatonin 3 MG TABLET 6 MG PO (22:05)
[2023-10-19] VITALS (13 sets, daily range): BP systolic 103–156; BP diastolic 56–98; PULSE 52–102; RESP 16–20; TEMP 36.1–36.8; O2SAT 96–100
[2023-10-19] MEDS: Omeprazole 20 MG CAPSULE.DR PO (06:24)
[2023-10-19 06:38] LABS: Hematocrit 40.5 % (42.0-52.0); Mean Corpuscular HGB Conc 34.6 g/dl (31.0-36.0); Mean Corpuscular Hemoglobin 31.2 pg (27.0-33.0); Mean Corpuscular Volume 90.2 fL (80.0-98.0); Mean Platelet Volume 10.7 fL (9.4-12.4); Platelet Count 222 X10*3/uL (160-400); Red Blood Count 4.49 X10*6/uL (4.60-5.80); Red Cell Distribution Width 13.3 % (11.0-16.0); White Blood Count 6.2 X10*3/uL (4.8-10.8)
--- OUTSIDE RECORDS SUMMARY | 2023-10-19 08:51 | XMS_ITS | Continuity of Care Document ---
Author Organization [facility] Plastic [facility] fern Address [address] [place], [place] [address] [address] [place] [address]- Care Team Providers Care Silver Plater Name Role Phone Erik Perkins DO Salomon Primary Care Physician [phone] [facility] [place] Date(s): 08/20/23 - 09/30/23 [facility] Plastic Surgery [address] [place] [id number] Attending Physician: Conor Morfin MD Referring Physician: Sid BARTON, Richa Coto Allergies, Adverse Reactions, Alerts Substance Reaction Severity Status penicillins hives Active Medications Aspirin 81, mg, By Mouth, Daily, 0, 0, 04/02/06 14:49:38, Print NIKKO Number, [id number], Constant Indicator Start Date: 04/02/06 Status: Ordered Cartia XT 180, mg, By Mouth, Daily, 0, 0, 04/02/06 14:47:22, Print NIKKO Number, [id number], Constant Indicator Start Date: 04/02/06 Status: Ordered Glucophage 500 mg oral tablet See Instructions, 08/24/06 11:51:11, 2 TABS PO BID, Print NIKKO Number, Constant Indicator Start Date: 08/24/06 Status: Ordered Lamictal 200 mg oral tablet See Instructions, 1 tab po in am and 2 tabs in pm., # 84 tablet, 1 Refills, neuropathic pain Start Date: 04/01/09 Stop Date: 09/19/08 Status: Ordered Lipitor Tablet 10, mg, By Mouth, Daily, 0, 0, 04/02/06 14:48:44, Print NIKKO Number, [id number], Constant Indicator Start Date: 04/02/06 Status: Ordered Lisinopril Tablet 5 mgm, By Mouth, Daily, 0, 0, 04/02/06 14:49:07, Print NIKKO Number, [id number], Constant Indicator Start Date: 04/02/06 Status: Ordered Percocet-10/325 oral tablet See Instructions, 0, 0, 01/20/08 15:34:53, up to 5 tabs prn for pain, Print NIKKO Number, Constant Indicator Start Date: 01/20/08 Status: Ordered Prandin Tablet 2, mg, By Mouth, 3 times a day before meals, 0, 0, 04/02/06 14:48:25, Print NIKKO Number, [id number], Constant Indicator Start Date: 04/02/06 Status: Ordered Topamax Tablet 100, mg, By Mouth, 2 times a day, 0, 0, 0, 03/01/07 14:05:06, Print NIKKO Number, [id number], Constant Indicator Start Date: 03/01/07 Status: Ordered Problem List Condition Confirmation Course Effective Dates Status Health Status Informant Body mass index index 25-29 - overweight Confirmed Active Degeneration of cervical intervertebral disc 1 Confirmed Active Diabetes mellitus Confirmed Active Disorder due to work-related activity accident 2 Confirmed 10/18/01 Active Drug interaction 3 Confirmed Active Failed back syndrome 4 Confirmed Active Hypercholesterolemia Confirmed Active Hypertension Confirmed Active Lumbar facet joint pain Confirmed Active Myofascial pain syndrome Confirmed Active Not getting enough sleep Confirmed Active Radicular syndrome of lower limbs Confirmed Active Sacroiliac joint pain Confirmed Active Sleep apnea 5 Confirmed Active 1s/p cervical spine surgeries 2Low Back Pain 3h/o cholesterol lowering agent, antidepressant and opioid co- treatment;cholesterol lowering agent and opioid co-treatment (current), no history of total CPK>150 4s/p right-sided L2-L3 hemilaminotomy, decompression and right L3-L4 decompression and disk excisionin or 01/2004; s/p left-sided hemilaminectomy and nerve root decompression at L1-L2, L2-L3 and L3-L4 with left L1-L2 diskectomy on 08/08/05. 5on CPAP Social History Social History Type Response Smoking Status Never smoker entered on: 01/14/15 Sex Patient Care team information Care Team Personnel Name: Erik Perkins DO Position: Reference Physician Member Role: PCP Address: Address: [address] [place] [address] Internal Medicine [place], [place] [address] Name: Cameron Beltre MDAnthony Position: [facility] Anesthesiology MD Member Role: [employer] Consulting Physician Address: Address: [address] [place] [address] [place]est[place] [address]- Care Team Related Persons Name: ADALGISA ORTIZ Address: home [address] [place] [id number]
[2023-10-19 09:04] LABS: Glucose, Whole Blood 168 mg/dL (60-115)
--- NOTE | 2023-10-19 09:24 | MHC.CM.PN ---
Addendum entered by Gianna Fowler 10/19/23 15:35: Patient will discharge to [facility] Sunday. Addendum entered by Gianna Fowler 10/19/23 11:36: Per MD Patient is planned for pacer insertion @ 4:30pm today. Discharge is planned for tomorrow. [facility] has been notified. Original Note: Patient did not transfer to [facility] 10/18/23. He reported worst headache of my life prior to transfer. Patient is on AC therapy. A CT of head was done to r/o bleed/aneurysm. Overnight another episode of bradycardia observed. Once cardiology clears patient he will discharge. [facility] has received a clinical update. DP OC via BLS once cardiology medically clears PT.
[2023-10-19] MEDS: Apixaban 5 MG TABLET 10 MG PO ×2 (09:35→23:16)
[2023-10-19] MEDS: Tamsulosin HCL 0.4 MG CAPSULE PO (09:35)
[2023-10-19] MEDS: Insulin Lispro 100 UNIT/ML 3 ML VIAL SUBCUT (09:35)
[2023-10-19] MEDS: levETIRAcetam Oral Soln 500 MG/5 ML PO ×2 (09:35→23:16)
[2023-10-19] MEDS: Sodium Bicarbonate 650 MG TABLET PO ×2 (09:35→23:16)
[2023-10-19] MEDS: Atorvastatin Calcium 80 MG TABLET PO (09:35)
[2023-10-19] MEDS: 0.9 % Sodium Chloride Flush 3 ML SYRINGE IVFLUSH (09:36)
--- NOTE | 2023-10-19 10:27 | HO.PM.IMPN ---
Subjective Subjective Date of Service: 10/19/23 Interval History: discharge cancelled due to severe headach conern for ICH, ct head was negative, headache resolved. continues to have occasional pauses of 5-6 seconds Neurologic Neurologic: Reports Abnormal speech present Physical Exam Vital Signs: Vital Signs: Last Vital Signs Temp 97.5 F 10/19/23 07:36 Pulse 68 10/19/23 07:36 Resp 20 10/19/23 07:36 BP 145/65 H 10/19/23 07:36 Pulse Ox 98 10/19/23 07:36 O2 Del Method Room Air 10/19/23 07:36 O2 Flow Rate 2 10/16/23 03:57 BMI result Body Mass Index 24.3 Const: General: cooperative, comfortable, no acute distress, alert and awake Neck: Neck: Yes trachea midline, Yes supple and Yes no JVD Resp: Effort & Inspection: normal respiratory effort Auscultation: clear to auscultation bilaterally Cardio: Jugular venous distension: no JVD Rhythm: abnormal rhythm irregularly irregular Heart sounds: S1 normal heart sound present, S2 normal heart sound present, no click, no gallops and no murmurs GI: Auscultation: normal bowel sounds Neuro: Speech: Abnormal speech present Objective Data Active Medications Acetaminophen (Acetaminophen 325 Mg Tablet) 650 mg PO Q6H PRN PRN Reason: mild pain Last Admin: 10/18/23 16:13 Dose: 650 mg Documented By: TERESITA Apixaban (Apixaban 5 Mg Tablet) 10 mg PO BID [facility] Last Admin: 10/19/23 09:35 Dose: 10 mg Documented By: VITO Atorvastatin Calcium (Atorvastatin Calcium 80 Mg Tablet) 80 mg PO DAILY [facility] Last Admin: 10/19/23 09:35 Dose: 80 mg Documented By: VITO Fentanyl (Fentanyl 100 Mcg Patch.Td72) 100 mcg TRANSDERMA Q3D [facility] Last Admin: 10/17/23 16:55 Dose: 100 mcg Documented By: WILLIAM Fentanyl (Fentanyl 50 Mcg Patch.Td72) 50 mcg TRANSDERMA Q3D [facility] Last Admin: 10/17/23 16:45 Dose: 50 mcg Documented By: WILLIAM Glucose (Glucose Gel 15 Gm Gel..Gram.) 15 gm PO Q15M PRN; Protocol PRN Reason: per Hypoglycemia Standing Ord. Glucose (Glucose Gel 15 Gm Gel..Gram.) 15 gm PO Q15M PRN; Protocol PRN Reason: per Hypoglycemia Standing Ord. Dextrose (D10) 250 mls @ 750 mls/hr IV Q15M PRN; Protocol PRN Reason: per Hypoglycemia Standing Ord. Insulin Human Lispro (Insulin Lispro 100 Unit/Ml 3 Ml Vial) 0 unit SUBCUT QIDACHS [facility]; Protocol Last Admin: 10/19/23 09:35 Dose: 2 unit Documented By: VITO Levetiracetam (Levetiracetam Oral Soln 500 Mg/5 Ml) 500 mg PO BID [facility] Last Admin: 10/19/23 09:35 Dose: 500 mg Documented By: VITO Melatonin (Melatonin 3 Mg Tablet) 6 mg PO BEDTIME PRN PRN Reason: Insomnia Last Admin: 10/18/23 22:05 Dose: 6 mg Documented By: GAVIOTA Omeprazole (Omeprazole 20 Mg Capsule.Dr) 20 mg PO BID@0630,1630 [facility] Last Admin: 10/19/23 06:24 Dose: 20 mg Documented By: GAVIOTA Sodium Bicarbonate (Sodium Bicarbonate 650 Mg Tablet) 650 mg PO BID [facility] Last Admin: 10/19/23 09:35 Dose: 650 mg Documented By: VITO Sodium Chloride (0.9 % Sodium Chloride Flush 3 Ml Syringe) 3 ml IVFLUSH QSHIFT [facility] Last Admin: 10/19/23 09:36 Dose: 3 ml Documented By: VITO Tamsulosin HCl (Tamsulosin Hcl 0.4 Mg Capsule) 0.4 mg PO DAILY [facility] Last Admin: 10/19/23 09:35 Dose: 0.4 mg Documented By: VITO Labs 10/19/23 06:31 10/17/23 05:35 Labs: Laboratory Results - last 24 hr 10/18/23 10/18/23 10/18/23 11:17 15:57 21:07 MCV MCH MCHC RDW Plt Count MPV Absolute Nucleated RBC Nucleated RBC % (auto) POC Glucose 166 H 193 H 258 H 10/19/23 10/19/23 06:31 07:38 MCV 90.2 MCH 31.2 MCHC 34.6 RDW 13.3 Plt Count 222 D MPV 10.7 Absolute Nucleated RBC 0.000 Nucleated RBC % (auto) 0.0 POC Glucose 168 H Assessment and Plan (1) Persistent atrial fibrillation: Status: Acute (2) Cerebral venous thrombosis: Status: Acute (3) Seizure: Status: Acute (4) Atrial fibrillation with rapid ventricular response: Status: Acute (5) Sinus pause: Status: Inactive Plan 83M past medical history significant for type 2 diabetes mellitus on insulin + glipizide, pulmonary embolism on Xarelto, and essential hypertension presented with right-sided weakness and aphasia, in ED had seizure, found to have acute CVA and extensive cerebral venous thrombosis Acute CVA ,extensive cerebral venous thrombosis complicated by new seizures encephalopathy - improved to baseline (has some baseline confusion) PT rec STR Neurology input appreciated, Keppra, anticoagulation, high-dose statin Hematology input appreciated -likely provoked by interrupted Xarelto, continue Eliquis 10 mg bid - will lower to 5 mg b.i.d. 10/20/2023 speech and swallow rec:chopped /nectar thick diet headach better today, cth without bleed new AFib with bradycardia and pauses Pauses up to 7 seconds asymptomatic Not on any AV zuleika blockade since 10/14/23 keep on Tele cardiology following, possible plan for ppm History of pulmonary embolism- right-sided pulmonary emboli . CTA still shows pulmonary embolism No respiratory complaints eliquis Hypoglycemia in diabetes type 2 no new episodes Hold oral hypoglycemic HbA1c of 6.4 started dm diet, no coverage below 200 mg/dl , range has been 100-150s Possible subclinical hyperthyroidism Low TSH, free t4 normal free t3 pending . BPH flomax Elevated bilirubin. seems to be chronic No reported abd pain abdominal US-Echogenic mass like material within the gallbladder, favored to represent tumefactive sludge. Recent diagnosis of gallbladder sludge with a plan for CCY per family Continue to monitor LFTs DNR/DNI DVT prophylaxis: eliquis reason for continued hospitalization: ester, pauses, ?pacer Quality Stroke Does the patient have a stroke diagnosis?: Yes Reason for No Anti-thrombotic by Day Two: Drug treatment not indicated VTE Prior VTE?: Yes VTE Risk Level:: Medical - moderate - high VTE Device Contraindication: Treatment Not Indicated VTE Drug Contraindication: N/A - Med Ordered
--- NOTE | 2023-10-19 11:24 | MHC.SLORD ---
Speech Language Pathology Order Status: Per RN, pt NPO for procedure today. SPOT CHECKER to see pt after procedure today if time allows.
[2023-10-19 11:26] LABS: Glucose, Whole Blood 171 mg/dL (60-115)
--- NOTE | 2023-10-19 12:15 | PM.PNCARD ---
Subjective Subjective Date of Service: 10/19/23 Principal diagnosis: Atrial fibrillation Interval history: Patient continues to have slow atrial fibrillation with pauses greater than 5 seconds. No symptoms related to it. Hemodynamically stable. Review of Systems Review of Systems Yes all other systems are reviewed and are negative Reports Abnormal speech present Physical Exam Vital Signs: Last Vital Signs Temp 97.0 F 10/19/23 11:08 Pulse 83 10/19/23 11:08 Resp 20 10/19/23 11:08 BP 125/80 10/19/23 11:08 Pulse Ox 98 10/19/23 11:08 O2 Del Method Room Air 10/19/23 11:08 O2 Flow Rate 2 10/16/23 03:57 BMI result Body Mass Index 24.3 Const General: cooperative, comfortable, no acute distress, alert and awake Neck Neck: Yes trachea midline, Yes supple and Yes no JVD Resp Effort & Inspection: normal respiratory effort Auscultation: clear to auscultation bilaterally Cardio Jugular venous distension: no JVD Rhythm: abnormal rhythm irregularly irregular Heart sounds: S1 normal heart sound present, S2 normal heart sound present, no click, no gallops and no murmurs GI Auscultation: normal bowel sounds Neuro Speech: Abnormal speech present Objective Labs and Meds 10/19/23 06:31 10/17/23 05:35 Lab results: Laboratory Results - last 24 hr 10/18/23 10/18/23 10/19/23 15:57 21:07 06:31 WBC 6.2 RBC 4.49 L Hgb 14.0 Hct 40.5 L MCV 90.2 MCH 31.2 MCHC 34.6 RDW 13.3 Plt Count 222 D MPV 10.7 Absolute Nucleated RBC 0.000 Nucleated RBC % (auto) 0.0 POC Glucose 193 H 258 H 10/19/23 10/19/23 07:38 11:12 WBC RBC Hgb Hct MCV MCH MCHC RDW Plt Count MPV Absolute Nucleated RBC Nucleated RBC % (auto) POC Glucose 168 H 171 H Imaging Radiologist's impression: Impressions Head CT 10/18/23 19:31 IMPRESSION: No acute intracranial hemorrhage or territorial infarction. Partially visualized venous thrombosis, better assessed on prior imaging. Diffuse brain parenchymal volume loss and chronic white matter microangiopathy. Chronic left sphenoid sinus mucosal disease. Progress Note: A&P Assessment and plan (1) Persistent atrial fibrillation: Status: Acute Assessment and Plan: Persistent atrial fibrillation slow ventricular response despite being off all rate control medication for greater than 72 hours. Discussed with patient and patient's [id number] was at bedside. Discussed the need for pacemaker therapy for bradycardia support. Discussed also with electrophysiology service. Will be scheduled for later in the day-to-day given that patient had his breakfast at 08:30 in the morning. Given his recent stroke as well as cerebral venous thrombosis will continue on Eliquis therapy through the procedure. Management was discussed in details including risks, benefits, alternatives. Patient shows understanding. Will follow with you Time Spent With Patient Time: Total time managing care of this patient today ____ minutes. Progress Note: Quality Stroke Does the patient have a stroke diagnosis?: Yes Reason for No Anti-thrombotic by Day Two: Drug treatment not indicated Procedures Date of Service Date of Service: 10/19/23
[2023-10-19 16:04] LABS: Glucose, Whole Blood 167 mg/dL (60-115)
--- NOTE | 2023-10-19 16:20 | HO.ANESPROP2 ---
HPI - Anesthesia Eval Consult details Narrative: for PPM implant PMFSH Active Problems Active Problems: All Active Problems Persistent atrial fibrillation (Acute) Cerebral venous thrombosis (Acute) Seizure (Acute) Atrial fibrillation with rapid ventricular response (Acute) Low TSH level (Acute) Urinary retention (Acute) Hypoglycemia (Acute) Stroke (Acute) Past Medical History Medical History (Updated 10/19/23 @ 16:37 by Flakita Gutierrez) Diabetes Essential hypertension History of pulmonary embolism Gallbladder sludge Narrative: tachy-ester with slow ventric response off all rate control meds > 72 hrs. Family History Family history of problems with anesthesia: No Surgical History Surgical History (Updated 10/19/23 @ 16:52 by Flakita Gutierrez) Previous back surgery History of Problems with Anesthesia: No Social History Social History Household Members: Family Household Members Other:: Son Housing: Condominium Do you presently have visiting nurse or other home services: No Patient Tobacco Use Status: Former Tobacco user Tobacco use type: Cigarette Years Smoked: 30 Smoked in Last 30 Days: No Use of substances other than those prescribed or required for medical reasons: No Currently Displaying Signs/Symptoms of Drug Intoxication Withdrawal: No Have you been hit, kicked, punched, or otherwise hurt by someone within the past year? If so, by whom?: No Do you feel safe in your current relationship?: No Current Relationship Is there a partner from a previous relationship who is making you feel unsafe now?: No Are you made to feel afraid or neglected: No Are you DNR?: Yes Advance Directives: Yes Advance Directives Information Provided: No Advance Directives on File: No Advance Directives Date on File: 10/13/23 Do you have a plan to hurt others: No Plan Recently lost weight without trying: Unsure Eating poorly because of decreased appetite: Yes Nutrition Risks: Difficulty swallowing service: No Meds Allergies Allergy/AdvReac Type Severity Reaction Status Date / Time Penicillins Allergy Intermediate Rash Verified 10/19/23 16:51 Active Medications: Current Medications Acetaminophen (Acetaminophen 325 Mg Tablet) 650 mg PO Q6H PRN PRN Reason: mild pain Last Admin: 10/18/23 16:13 Dose: 650 mg Apixaban (Apixaban 5 Mg Tablet) 10 mg PO BID SHANNA Stop: 10/19/23 21:00 Last Admin: 10/19/23 09:35 Dose: 10 mg Apixaban (Apixaban 5 Mg Tablet) 5 mg PO BID [facility] Atorvastatin Calcium (Atorvastatin Calcium 80 Mg Tablet) 80 mg PO DAILY [facility] Last Admin: 10/19/23 09:35 Dose: 80 mg Fentanyl (Fentanyl 100 Mcg Patch.Td72) 100 mcg TRANSDERMA Q3D [facility] Last Admin: 10/17/23 16:55 Dose: 100 mcg Fentanyl (Fentanyl 50 Mcg Patch.Td72) 50 mcg TRANSDERMA Q3D [facility] Last Admin: 10/17/23 16:45 Dose: 50 mcg Glucose (Glucose Gel 15 Gm Gel..Gram.) 15 gm PO Q15M PRN; Protocol PRN Reason: per Hypoglycemia Standing Ord. Glucose (Glucose Gel 15 Gm Gel..Gram.) 15 gm PO Q15M PRN; Protocol PRN Reason: per Hypoglycemia Standing Ord. Dextrose (D10) 250 mls @ 750 mls/hr IV Q15M PRN; Protocol PRN Reason: per Hypoglycemia Standing Ord. Insulin Human Lispro (Insulin Lispro 100 Unit/Ml 3 Ml Vial) 0 unit SUBCUT QIDACHS [facility]; Protocol Last Admin: 10/19/23 12:38 Dose: Not Given Levetiracetam (Levetiracetam Oral Soln 500 Mg/5 Ml) 500 mg PO BID [facility] Last Admin: 10/19/23 09:35 Dose: 500 mg Melatonin (Melatonin 3 Mg Tablet) 6 mg PO BEDTIME PRN PRN Reason: Insomnia Last Admin: 10/18/23 22:05 Dose: 6 mg Omeprazole (Omeprazole 20 Mg Capsule.) 20 mg PO BID@0630,1630 [facility] Last Admin: 10/19/23 06:24 Dose: 20 mg Sodium Bicarbonate (Sodium Bicarbonate 650 Mg Tablet) 650 mg PO BID [facility] Last Admin: 10/19/23 09:35 Dose: 650 mg Sodium Chloride (0.9 % Sodium Chloride Flush 3 Ml Syringe) 3 ml IVFLUSH QSHIFT [facility] Last Admin: 10/19/23 09:36 Dose: 3 ml Tamsulosin HCl (Tamsulosin Hcl 0.4 Mg Capsule) 0.4 mg PO DAILY [facility] Last Admin: 10/19/23 09:35 Dose: 0.4 mg Home Medications ?Medication ?Instructions ?Recorded ?Confirmed ?Last Taken ?Type amlodipine 10 mg tablet 10 mg PO DAILY 10/14/23 10/14/23 10/12/23 History fentanyl 100 mcg/hr transdermal 1 patch topical Q3D 10/14/23 10/14/23 10/13/23 History patch fentanyl 50 mcg/hr transdermal 1 patch topical Q3D 10/14/23 10/14/23 10/13/23 History patch lisinopril 10 mg tablet 10 mg PO DAILY 10/14/23 10/14/23 10/12/23 History Exam Height,Weight and Vital Signs: Height 5 ft 3 in Weight 62.3 kg Last Vital Signs Temp 97.4 F 10/19/23 16:00 Pulse 75 10/19/23 16:00 Resp 20 10/19/23 15:59 BP 109/66 10/19/23 16:00 Pulse Ox 96 10/19/23 16:00 O2 Del Method Room Air 10/19/23 15:59 O2 Flow Rate 2 10/16/23 03:57 Pertinent Lab Results Pertinent Lab Results: iLaboratory Tests 10/13/23 10/14/23 10/14/23 23:37 00:00 00:26 WBC 13.0 H RBC 5.24 Hgb 16.2 Hct 47.6 MCV 90.8 MCH 30.9 MCHC 34.0 RDW 13.4 Plt Count 282 D MPV 10.7 Immature Gran % (Auto) 0.4 Neut % (Auto) 88.7 H Lymph % (Auto) 6.[address] % (Auto) 4.6 Eos % (Auto) 0.1 Baso % (Auto) 0.2 Lymph # (Auto) 0.[address] [place] # (Auto) 0.6 Eos # (Auto) 0.0 Baso # (Auto) 0.0 Abs Immat Gran (auto) 0.05 H Absolute Neuts (auto) 11.5 H Absolute Nucleated RBC 0.000 Nucleated RBC % (auto) 0.0 PT 15.9 H INR 1.3 H APTT 30.5 aPTT Heparin Protocol O2 Saturation ABG pH at Pt Temp ABG pCO2 at Pt Temp ABG pO2 at Pt Temp ABG HCO3 ABG Base Excess (Actual) VBG pH VBG pCO2 VBG pO2 VBG HCO3 VBG O2 Saturation VBG Base Excess Sodium 136 Potassium 4.6 Chloride 107 Carbon Dioxide 18 L Anion Gap 16 BUN 25 H Creatinine 1.08 Estim Creat Clear Calc 43.1 Estimated GFR > 60 POC Glucose 84 Random Glucose 103 Estimat Average Glucose Hemoglobin A1c % Calcium 9.7 Magnesium 2.2 Total Bilirubin 1.6 H Direct Bilirubin 0.6 H AST 28 ALT 23 Alkaline Phosphatase 131 H Total Creatine Kinase 367 H Troponin I High Sens 10.9 Total Protein 7.0 Albumin 4.1 Triglycerides Cholesterol LDL Cholesterol, Calc HDL Cholesterol Lipase TSH < 0.01 L Free T4 1.63 Urine Color Yellow Urine Appearance Clear Urine pH 6.5 Ur Specific [place] >= 1.030 H Urine Protein Trace Urine Glucose (UA) Negative Urine Ketones 15 Urine Blood Small (1+) H Urine Nitrite Negative Ur Leukocyte Esterase Negative Urine RBC 11-20 H Urine WBC 0-5 Ur Squamous Epith Cells 0-2 Urine Bacteria None Seen Hyaline Casts 0-2 Ethyl Alcohol < 10 Influenza Type A (PCR) Influenza Type B (PCR) RSV RNA Qual (PCR) SARS-CoV-2 RNA (RT-PCR) 10/14/23 10/14/23 10/14/23 01:57 03:24 06:50 WBC RBC Hgb Hct MCV MCH MCHC RDW Plt Count MPV Immature Gran % (Auto) Neut % (Auto) Lymph % (Auto) [place] % (Auto) Eos % (Auto) Baso % (Auto) Lymph # (Auto) [place] # (Auto) Eos # (Auto) Baso # (Auto) Abs Immat Gran (auto) Absolute Neuts (auto) Absolute Nucleated RBC Nucleated RBC % (auto) PT INR APTT aPTT Heparin Protocol O2 Saturation ABG pH at Pt Temp ABG pCO2 at Pt Temp ABG pO2 at Pt Temp ABG HCO3 ABG Base Excess (Actual) VBG pH VBG pCO2 VBG pO2 VBG HCO3 VBG O2 Saturation VBG Base Excess Sodium 139 Potassium 4.5 Chloride 114 H Carbon Dioxide 16 L Anion Gap 14 BUN 21 H Creatinine 0.80 Estim Creat Clear Calc 58.2 Estimated GFR > 60 POC Glucose 73 88 Random Glucose 50 L* Estimat Average Glucose 137 Hemoglobin A1c % 6.4 H Calcium 9.2 Magnesium Total Bilirubin Direct Bilirubin AST ALT Alkaline Phosphatase Total Creatine Kinase 293 H Troponin I High Sens 16.6 D Total Protein Albumin Triglycerides Cholesterol LDL Cholesterol, Calc HDL Cholesterol Lipase 24 TSH Free T4 Urine Color Urine Appearance Urine pH Ur Specific [place] Urine Protein Urine Glucose (UA) Urine Ketones Urine Blood Urine Nitrite Ur Leukocyte Esterase Urine RBC Urine WBC Ur Squamous Epith Cells Urine Bacteria Hyaline Casts Ethyl Alcohol Influenza Type A (PCR) Influenza Type B (PCR) RSV RNA Qual (PCR) SARS-CoV-2 RNA (RT-PCR) 10/14/23 10/14/23 10/14/23 06:52 07:30 09:56 WBC RBC Hgb Hct MCV MCH MCHC RDW Plt Count MPV Immature Gran % (Auto) Neut % (Auto) Lymph % (Auto) [place] % (Auto) Eos % (Auto) Baso % (Auto) Lymph # (Auto) [place] # (Auto) Eos # (Auto) Baso # (Auto) Abs Immat Gran (auto) Absolute Neuts (auto) Absolute Nucleated RBC Nucleated RBC % (auto) PT INR APTT aPTT Heparin Protocol O2 Saturation ABG pH at Pt Temp ABG pCO2 at Pt Temp ABG pO2 at Pt Temp ABG HCO3 ABG Base Excess (Actual) VBG pH VBG pCO2 VBG pO2 VBG HCO3 VBG O2 Saturation VBG Base Excess Sodium Potassium Chloride Carbon Dioxide Anion Gap BUN Creatinine Estim Creat Clear Calc Estimated GFR POC Glucose 54 L* 115 111 Random Glucose Estimat Average Glucose Hemoglobin A1c % Calcium Magnesium Total Bilirubin Direct Bilirubin AST ALT Alkaline Phosphatase Total Creatine Kinase Troponin I High Sens Total Protein Albumin Triglycerides Cholesterol LDL Cholesterol, Calc HDL Cholesterol Lipase TSH Free T4 Urine Color Urine Appearance Urine pH Ur Specific [place] Urine Protein Urine Glucose (UA) Urine Ketones Urine Blood Urine Nitrite Ur Leukocyte Esterase Urine RBC Urine WBC Ur Squamous Epith Cells Urine Bacteria Hyaline Casts Ethyl Alcohol Influenza Type A (PCR) Influenza Type B (PCR) RSV RNA Qual (PCR) SARS-CoV-2 RNA (RT-PCR) 10/14/23 10/14/23 10/14/23 10:34 11:39 11:39 WBC 7.8 RBC 4.87 Hgb 15.2 Hct 45.3 MCV 93.0 MCH 31.2 MCHC 33.6 RDW 13.5 Plt Count 218 MPV 10.8 Immature Gran % (Auto) 0.6 H Neut % (Auto) 68.5 Lymph % (Auto) 21.6 [place] % (Auto) 8.7 Eos % (Auto) 0.1 Baso % (Auto) 0.5 Lymph # (Auto) 1.7 [place] # (Auto) 0.7 Eos # (Auto) 0.0 Baso # (Auto) 0.0 Abs Immat Gran (auto) 0.05 H Absolute Neuts (auto) 5.3 Absolute Nucleated RBC 0.000 Nucleated RBC % (auto) 0.0 PT 15.4 H Cancelled INR 1.3 H APTT aPTT Heparin Protocol O2 Saturation ABG pH at Pt Temp ABG pCO2 at Pt Temp ABG pO2 at Pt Temp ABG HCO3 ABG Base Excess (Actual) VBG pH VBG pCO2 VBG pO2 VBG HCO3 VBG O2 Saturation VBG Base Excess Sodium Potassium Chloride Carbon Dioxide Anion Gap BUN Creatinine Estim Creat Clear Calc Estimated GFR POC Glucose Random Glucose Estimat Average Glucose Hemoglobin A1c % Calcium Magnesium Total Bilirubin Direct Bilirubin AST ALT Alkaline Phosphatase Total Creatine Kinase Troponin I High Sens Total Protein Albumin Triglycerides Cholesterol LDL Cholesterol, Calc HDL Cholesterol Lipase TSH Free T4 Urine Color Urine Appearance Urine pH Ur Specific [place] Urine Protein Urine Glucose (UA) Urine Ketones Urine Blood Urine Nitrite Ur Leukocyte Esterase Urine RBC Urine WBC Ur Squamous Epith Cells Urine Bacteria Hyaline Casts Ethyl Alcohol Influenza Type A (PCR) NEGATIVE Influenza Type B (PCR) NEGATIVE RSV RNA Qual (PCR) NEGATIVE SARS-CoV-2 RNA (RT-PCR) NEGATIVE 10/14/23 10/14/23 10/14/23 11:39 11:51 14:36 WBC RBC Hgb Hct MCV MCH MCHC RDW Plt Count MPV Immature Gran % (Auto) Neut % (Auto) Lymph % (Auto) [place] % (Auto) Eos % (Auto) Baso % (Auto) Lymph # (Auto) [place] # (Auto) Eos # (Auto) Baso # (Auto) Abs Immat Gran (auto) Absolute Neuts (auto) Absolute Nucleated RBC Nucleated RBC % (auto) PT INR Cancelled APTT Cancelled aPTT Heparin Protocol 28.9 L O2 Saturation ABG pH at Pt Temp ABG pCO2 at Pt Temp ABG pO2 at Pt Temp ABG HCO3 ABG Base Excess (Actual) VBG pH VBG pCO2 VBG pO2 VBG HCO3 VBG O2 Saturation VBG Base Excess Sodium Potassium Chloride Carbon Dioxide Anion Gap BUN Creatinine Estim Creat Clear Calc Estimated GFR POC Glucose 128 H 156 H Random Glucose Estimat Average Glucose Hemoglobin A1c % Calcium Magnesium Total Bilirubin Direct Bilirubin AST ALT Alkaline Phosphatase Total Creatine Kinase Troponin I High Sens Total Protein Albumin Triglycerides Cholesterol LDL Cholesterol, Calc HDL Cholesterol Lipase TSH Free T4 Urine Color Urine Appearance Urine pH Ur Specific [place] Urine Protein Urine Glucose (UA) Urine Ketones Urine Blood Urine Nitrite Ur Leukocyte Esterase Urine RBC Urine WBC Ur Squamous Epith Cells Urine Bacteria Hyaline Casts Ethyl Alcohol Influenza Type A (PCR) Influenza Type B (PCR) RSV RNA Qual (PCR) SARS-CoV-2 RNA (RT-PCR) 10/14/23 10/14/23 10/14/23 15:54 17:06 17:48 WBC RBC Hgb Hct MCV MCH MCHC RDW Plt Count MPV Immature Gran % (Auto) Neut % (Auto) Lymph % (Auto) [place] % (Auto) Eos % (Auto) Baso % (Auto) Lymph # (Auto) [place] # (Auto) Eos # (Auto) Baso # (Auto) Abs Immat Gran (auto) Absolute Neuts (auto) Absolute Nucleated RBC Nucleated RBC % (auto) PT INR APTT aPTT Heparin Protocol O2 Saturation 99.0 ABG pH at Pt Temp 7.41 ABG pCO2 at Pt Temp 24 L ABG pO2 at Pt Temp 102 ABG HCO3 16 L ABG Base Excess (Actual) -6.4 VBG pH VBG pCO2 VBG pO2 VBG HCO3 VBG O2 Saturation VBG Base Excess Sodium Potassium Chloride Carbon Dioxide Anion Gap BUN Creatinine Estim Creat Clear Calc Estimated GFR POC Glucose 158 H 174 H Random Glucose Estimat Average Glucose Hemoglobin A1c % Calcium Magnesium Total Bilirubin Direct Bilirubin AST ALT Alkaline Phosphatase Total Creatine Kinase Troponin I High Sens Total Protein Albumin Triglycerides Cholesterol LDL Cholesterol, Calc HDL Cholesterol Lipase TSH Free T4 Urine Color Urine Appearance Urine pH Ur Specific [place] Urine Protein Urine Glucose (UA) Urine Ketones Urine Blood Urine Nitrite Ur Leukocyte Esterase Urine RBC Urine WBC Ur Squamous Epith Cells Urine Bacteria Hyaline Casts Ethyl Alcohol Influenza Type A (PCR) Influenza Type B (PCR) RSV RNA Qual (PCR) SARS-CoV-2 RNA (RT-PCR) 10/14/23 10/14/23 10/14/23 20:26 21:56 22:02 WBC RBC Hgb Hct MCV MCH MCHC RDW Plt Count MPV Immature Gran % (Auto) Neut % (Auto) Lymph % (Auto) [place] % (Auto) Eos % (Auto) Baso % (Auto) Lymph # (Auto) [place] # (Auto) Eos # (Auto) Baso # (Auto) Abs Immat Gran (auto) Absolute Neuts (auto) Absolute Nucleated RBC Nucleated RBC % (auto) PT INR APTT aPTT Heparin Protocol 55.2 D O2 Saturation ABG pH at Pt Temp ABG pCO2 at Pt Temp ABG pO2 at Pt Temp ABG HCO3 ABG Base Excess (Actual) VBG pH VBG pCO2 VBG pO2 VBG HCO3 VBG O2 Saturation VBG Base Excess Sodium Potassium Chloride Carbon Dioxide Anion Gap BUN Creatinine Estim Creat Clear Calc Estimated GFR POC Glucose 215 H 203 H Random Glucose Estimat Average Glucose Hemoglobin A1c % Calcium Magnesium Total Bilirubin Direct Bilirubin AST ALT Alkaline Phosphatase Total Creatine Kinase Troponin I High Sens Total Protein Albumin Triglycerides Cholesterol LDL Cholesterol, Calc HDL Cholesterol Lipase TSH Free T4 Urine Color Urine Appearance Urine pH Ur Specific [place] Urine Protein Urine Glucose (UA) Urine Ketones Urine Blood Urine Nitrite Ur Leukocyte Esterase Urine RBC Urine WBC Ur Squamous Epith Cells Urine Bacteria Hyaline Casts Ethyl Alcohol Influenza Type A (PCR) Influenza Type B (PCR) RSV RNA Qual (PCR) SARS-CoV-2 RNA (RT-PCR) 10/14/23 10/15/23 10/15/23 23:52 01:58 04:20 WBC RBC Hgb Hct MCV MCH MCHC RDW Plt Count MPV Immature Gran % (Auto) Neut % (Auto) Lymph % (Auto) [place] % (Auto) Eos % (Auto) Baso % (Auto) Lymph # (Auto) [place] # (Auto) Eos # (Auto) Baso # (Auto) Abs Immat Gran (auto) Absolute Neuts (auto) Absolute Nucleated RBC Nucleated RBC % (auto) PT INR APTT aPTT Heparin Protocol O2 Saturation ABG pH at Pt Temp ABG pCO2 at Pt Temp ABG pO2 at Pt Temp ABG HCO3 ABG Base Excess (Actual) VBG pH VBG pCO2 VBG pO2 VBG HCO3 VBG O2 Saturation VBG Base Excess Sodium Potassium Chloride Carbon Dioxide Anion Gap BUN Creatinine Estim Creat Clear Calc Estimated GFR POC Glucose 148 H 134 H 102 Random Glucose Estimat Average Glucose Hemoglobin A1c % Calcium Magnesium Total Bilirubin Direct Bilirubin AST ALT Alkaline Phosphatase Total Creatine Kinase Troponin I High Sens Total Protein Albumin Triglycerides Cholesterol LDL Cholesterol, Calc HDL Cholesterol Lipase TSH Free T4 Urine Color Urine Appearance Urine pH Ur Specific [place] Urine Protein Urine Glucose (UA) Urine Ketones Urine Blood Urine Nitrite Ur Leukocyte Esterase Urine RBC Urine WBC Ur Squamous Epith Cells Urine Bacteria Hyaline Casts Ethyl Alcohol Influenza Type A (PCR) Influenza Type B (PCR) RSV RNA Qual (PCR) SARS-CoV-2 RNA (RT-PCR) 10/15/23 10/15/23 10/15/23 05:10 05:15 06:01 WBC RBC Hgb Hct MCV MCH MCHC RDW Plt Count MPV Immature Gran % (Auto) Neut % (Auto) Lymph % (Auto) [place] % (Auto) Eos % (Auto) Baso % (Auto) Lymph # (Auto) [place] # (Auto) Eos # (Auto) Baso # (Auto) Abs Immat Gran (auto) Absolute Neuts (auto) Absolute Nucleated RBC Nucleated RBC % (auto) PT 16.0 H INR 1.3 H APTT aPTT Heparin Protocol 84.1 H D O2 Saturation ABG pH at Pt Temp ABG pCO2 at Pt Temp ABG pO2 at Pt Temp ABG HCO3 ABG Base Excess (Actual) VBG pH 7.47 H VBG pCO2 22 VBG pO2 85 VBG HCO3 16 L VBG O2 Saturation 99.0 VBG Base Excess -5.1 Sodium 139 Potassium 4.8 Chloride 114 H Carbon Dioxide 15 L Anion Gap 15 BUN 13 Creatinine 0.88 Estim Creat Clear Calc 52.9 Estimated GFR > 60 POC Glucose 108 Random Glucose 112 Estimat Average Glucose Hemoglobin A1c % Calcium 8.9 Magnesium Total Bilirubin 1.9 H Direct Bilirubin AST 29 ALT 18 Alkaline Phosphatase 91 Total Creatine Kinase Troponin I High Sens Total Protein 5.8 L Albumin 3.2 L Triglycerides 81 Cholesterol 101 LDL Cholesterol, Calc 53 HDL Cholesterol 32 L Lipase TSH Free T4 Urine Color Urine Appearance Urine pH Ur Specific [place] Urine Protein Urine Glucose (UA) Urine Ketones Urine Blood Urine Nitrite Ur Leukocyte Esterase Urine RBC Urine WBC Ur Squamous Epith Cells Urine Bacteria Hyaline Casts Ethyl Alcohol Influenza Type A (PCR) Influenza Type B (PCR) RSV RNA Qual (PCR) SARS-CoV-2 RNA (RT-PCR) 10/15/23 10/15/23 10/15/23 07:55 08:27 10:03 WBC 7.5 RBC 4.43 L Hgb 13.8 L Hct 41.3 L MCV 93.2 MCH 31.2 MCHC 33.4 RDW 13.7 Plt Count 163 D MPV 11.8 Immature Gran % (Auto) Neut % (Auto) Lymph % (Auto) [place] % (Auto) Eos % (Auto) Baso % (Auto) Lymph # (Auto) [place] # (Auto) Eos # (Auto) Baso # (Auto) Abs Immat Gran (auto) Absolute Neuts (auto) Absolute Nucleated RBC 0.000 Nucleated RBC % (auto) 0.0 PT INR APTT aPTT Heparin Protocol O2 Saturation ABG pH at Pt Temp ABG pCO2 at Pt Temp ABG pO2 at Pt Temp ABG HCO3 ABG Base Excess (Actual) VBG pH VBG pCO2 VBG pO2 VBG HCO3 VBG O2 Saturation VBG Base Excess Sodium Potassium Chloride Carbon Dioxide Anion Gap BUN Creatinine Estim Creat Clear Calc Estimated GFR POC Glucose 94 103 Random Glucose Estimat Average Glucose Hemoglobin A1c % Calcium Magnesium Total Bilirubin Direct Bilirubin AST ALT Alkaline Phosphatase Total Creatine Kinase Troponin I High Sens Total Protein Albumin Triglycerides Cholesterol LDL Cholesterol, Calc HDL Cholesterol Lipase TSH Free T4 Urine Color Urine Appearance Urine pH Ur Specific [place] Urine Protein Urine Glucose (UA) Urine Ketones Urine Blood Urine Nitrite Ur Leukocyte Esterase Urine RBC Urine WBC Ur Squamous Epith Cells Urine Bacteria Hyaline Casts Ethyl Alcohol Influenza Type A (PCR) Influenza Type B (PCR) RSV RNA Qual (PCR) SARS-CoV-2 RNA (RT-PCR) 10/15/23 10/15/23 10/15/23 12:09 16:34 21:00 WBC RBC Hgb Hct MCV MCH MCHC RDW Plt Count MPV Immature Gran % (Auto) Neut % (Auto) Lymph % (Auto) [place] % (Auto) Eos % (Auto) Baso % (Auto) Lymph # (Auto) [place] # (Auto) Eos # (Auto) Baso # (Auto) Abs Immat Gran (auto) Absolute Neuts (auto) Absolute Nucleated RBC Nucleated RBC % (auto) PT INR APTT aPTT Heparin Protocol O2 Saturation ABG pH at Pt Temp ABG pCO2 at Pt Temp ABG pO2 at Pt Temp ABG HCO3 ABG Base Excess (Actual) VBG pH VBG pCO2 VBG pO2 VBG HCO3 VBG O2 Saturation VBG Base Excess Sodium Potassium Chloride Carbon Dioxide Anion Gap BUN Creatinine Estim Creat Clear Calc Estimated GFR POC Glucose 142 H 152 H 171 H Random Glucose Estimat Average Glucose Hemoglobin A1c % Calcium Magnesium Total Bilirubin Direct Bilirubin AST ALT Alkaline Phosphatase Total Creatine Kinase Troponin I High Sens Total Protein Albumin Triglycerides Cholesterol LDL Cholesterol, Calc HDL Cholesterol Lipase TSH Free T4 Urine Color Urine Appearance Urine pH Ur Specific [place] Urine Protein Urine Glucose (UA) Urine Ketones Urine Blood Urine Nitrite Ur Leukocyte Esterase Urine RBC Urine WBC Ur Squamous Epith Cells Urine Bacteria Hyaline Casts Ethyl Alcohol Influenza Type A (PCR) Influenza Type B (PCR) RSV RNA Qual (PCR) SARS-CoV-2 RNA (RT-PCR) 10/16/23 10/16/23 10/16/23 07:55 08:36 10:56 WBC 6.0 RBC 4.94 Hgb 15.3 Hct 46.3 MCV 93.7 MCH 31.0 MCHC 33.0 RDW 13.5 Plt Count 168 MPV 11.3 Immature Gran % (Auto) Neut % (Auto) Lymph % (Auto) [place] % (Auto) Eos % (Auto) Baso % (Auto) Lymph # (Auto) [place] # (Auto) Eos # (Auto) Baso # (Auto) Abs Immat Gran (auto) Absolute Neuts (auto) Absolute Nucleated RBC 0.000 Nucleated RBC % (auto) 0.0 PT INR APTT aPTT Heparin Protocol O2 Saturation ABG pH at Pt Temp ABG pCO2 at Pt Temp ABG pO2 at Pt Temp ABG HCO3 ABG Base Excess (Actual) VBG pH VBG pCO2 VBG pO2 VBG HCO3 VBG O2 Saturation VBG Base Excess Sodium 138 Potassium 4.7 Chloride 111 H Carbon Dioxide 18 L Anion Gap 14 BUN 19 H Creatinine 0.91 Estim Creat Clear Calc 51.2 Estimated GFR > 60 POC Glucose 119 H 155 H Random Glucose 147 H Estimat Average Glucose Hemoglobin A1c % Calcium 9.5 D Magnesium Total Bilirubin 1.4 H Direct Bilirubin AST 17 ALT 16 Alkaline Phosphatase 109 Total Creatine Kinase Troponin I High Sens Total Protein 6.5 Albumin 3.8 Triglycerides Cholesterol LDL Cholesterol, Calc HDL Cholesterol Lipase TSH Free T4 Urine Color Urine Appearance Urine pH Ur Specific [place] Urine Protein Urine Glucose (UA) Urine Ketones Urine Blood Urine Nitrite Ur Leukocyte Esterase Urine RBC Urine WBC Ur Squamous Epith Cells Urine Bacteria Hyaline Casts Ethyl Alcohol Influenza Type A (PCR) Influenza Type B (PCR) RSV RNA Qual (PCR) SARS-CoV-2 RNA (RT-PCR) 10/16/23 10/16/23 10/17/23 16:41 20:52 05:35 WBC 5.8 RBC 4.63 Hgb 14.3 Hct 42.8 MCV 92.4 MCH 30.9 MCHC 33.4 RDW 13.2 Plt Count 176 MPV 11.3 Immature Gran % (Auto) Neut % (Auto) Lymph % (Auto) [place] % (Auto) Eos % (Auto) Baso % (Auto) Lymph # (Auto) [place] # (Auto) Eos # (Auto) Baso # (Auto) Abs Immat Gran (auto) Absolute Neuts (auto) Absolute Nucleated RBC 0.000 Nucleated RBC % (auto) 0.0 PT INR APTT aPTT Heparin Protocol O2 Saturation ABG pH at Pt Temp ABG pCO2 at Pt Temp ABG pO2 at Pt Temp ABG HCO3 ABG Base Excess (Actual) VBG pH VBG pCO2 VBG pO2 VBG HCO3 VBG O2 Saturation VBG Base Excess Sodium 140 Potassium 4.4 Chloride 115 H Carbon Dioxide 15 L Anion Gap 14 BUN 15 Creatinine 0.81 Estim Creat Clear Calc 57.5 Estimated GFR > 60 POC Glucose 197 H 197 H Random Glucose 185 H Estimat Average Glucose Hemoglobin A1c % Calcium 8.8 D Magnesium Total Bilirubin Direct Bilirubin AST ALT Alkaline Phosphatase Total Creatine Kinase Troponin I High Sens Total Protein Albumin Triglycerides Cholesterol LDL Cholesterol, Calc HDL Cholesterol Lipase TSH Free T4 Urine Color Urine Appearance Urine pH Ur Specific [place] Urine Protein Urine Glucose (UA) Urine Ketones Urine Blood Urine Nitrite Ur Leukocyte Esterase Urine RBC Urine WBC Ur Squamous Epith Cells Urine Bacteria Hyaline Casts Ethyl Alcohol Influenza Type A (PCR) Influenza Type B (PCR) RSV RNA Qual (PCR) SARS-CoV-2 RNA (RT-PCR) 10/17/23 10/17/23 10/17/23 07:52 11:21 15:58 WBC RBC Hgb Hct MCV MCH MCHC RDW Plt Count MPV Immature Gran % (Auto) Neut % (Auto) Lymph % (Auto) [place] % (Auto) Eos % (Auto) Baso % (Auto) Lymph # (Auto) [place] # (Auto) Eos # (Auto) Baso # (Auto) Abs Immat Gran (auto) Absolute Neuts (auto) Absolute Nucleated RBC Nucleated RBC % (auto) PT INR APTT aPTT Heparin Protocol O2 Saturation ABG pH at Pt Temp ABG pCO2 at Pt Temp ABG pO2 at Pt Temp ABG HCO3 ABG Base Excess (Actual) VBG pH VBG pCO2 VBG pO2 VBG HCO3 VBG O2 Saturation VBG Base Excess Sodium Potassium Chloride Carbon Dioxide Anion Gap BUN Creatinine Estim Creat Clear Calc Estimated GFR POC Glucose 155 H 217 H 197 H Random Glucose Estimat Average Glucose Hemoglobin A1c % Calcium Magnesium Total Bilirubin Direct Bilirubin AST ALT Alkaline Phosphatase Total Creatine Kinase Troponin I High Sens Total Protein Albumin Triglycerides Cholesterol LDL Cholesterol, Calc HDL Cholesterol Lipase TSH Free T4 Urine Color Urine Appearance Urine pH Ur Specific [place] Urine Protein Urine Glucose (UA) Urine Ketones Urine Blood Urine Nitrite Ur Leukocyte Esterase Urine RBC Urine WBC Ur Squamous Epith Cells Urine Bacteria Hyaline Casts Ethyl Alcohol Influenza Type A (PCR) Influenza Type B (PCR) RSV RNA Qual (PCR) SARS-CoV-2 RNA (RT-PCR) 10/17/23 10/18/23 10/18/23 20:56 08:02 11:17 WBC RBC Hgb Hct MCV MCH MCHC RDW Plt Count MPV Immature Gran % (Auto) Neut % (Auto) Lymph % (Auto) [place] % (Auto) Eos % (Auto) Baso % (Auto) Lymph # (Auto) [place] # (Auto) Eos # (Auto) Baso # (Auto) Abs Immat Gran (auto) Absolute Neuts (auto) Absolute Nucleated RBC Nucleated RBC % (auto) PT INR APTT aPTT Heparin Protocol O2 Saturation ABG pH at Pt Temp ABG pCO2 at Pt Temp ABG pO2 at Pt Temp ABG HCO3 ABG Base Excess (Actual) VBG pH VBG pCO2 VBG pO2 VBG HCO3 VBG O2 Saturation VBG Base Excess Sodium Potassium Chloride Carbon Dioxide Anion Gap BUN Creatinine Estim Creat Clear Calc Estimated GFR POC Glucose 262 H 153 H 166 H Random Glucose Estimat Average Glucose Hemoglobin A1c % Calcium Magnesium Total Bilirubin Direct Bilirubin AST ALT Alkaline Phosphatase Total Creatine Kinase Troponin I High Sens Total Protein Albumin Triglycerides Cholesterol LDL Cholesterol, Calc HDL Cholesterol Lipase TSH Free T4 Urine Color Urine Appearance Urine pH Ur Specific [place] Urine Protein Urine Glucose (UA) Urine Ketones Urine Blood Urine Nitrite Ur Leukocyte Esterase Urine RBC Urine WBC Ur Squamous Epith Cells Urine Bacteria Hyaline Casts Ethyl Alcohol Influenza Type A (PCR) Influenza Type B (PCR) RSV RNA Qual (PCR) SARS-CoV-2 RNA (RT-PCR) 10/18/23 10/18/23 10/19/23 15:57 21:07 06:31 WBC 6.2 RBC 4.49 L Hgb 14.0 Hct 40.5 L MCV 90.2 MCH 31.2 MCHC 34.6 RDW 13.3 Plt Count 222 D MPV 10.7 Immature Gran % (Auto) Neut % (Auto) Lymph % (Auto) [place] % (Auto) Eos % (Auto) Baso % (Auto) Lymph # (Auto) [place] # (Auto) Eos # (Auto) Baso # (Auto) Abs Immat Gran (auto) Absolute Neuts (auto) Absolute Nucleated RBC 0.000 Nucleated RBC % (auto) 0.0 PT INR APTT aPTT Heparin Protocol O2 Saturation ABG pH at Pt Temp ABG pCO2 at Pt Temp ABG pO2 at Pt Temp ABG HCO3 ABG Base Excess (Actual) VBG pH VBG pCO2 VBG pO2 VBG HCO3 VBG O2 Saturation VBG Base Excess Sodium Potassium Chloride Carbon Dioxide Anion Gap BUN Creatinine Estim Creat Clear Calc Estimated GFR POC Glucose 193 H 258 H Random Glucose Estimat Average Glucose Hemoglobin A1c % Calcium Magnesium Total Bilirubin Direct Bilirubin AST ALT Alkaline Phosphatase Total Creatine Kinase Troponin I High Sens Total Protein Albumin Triglycerides Cholesterol LDL Cholesterol, Calc HDL Cholesterol Lipase TSH Free T4 Urine Color Urine Appearance Urine pH Ur Specific [place] Urine Protein Urine Glucose (UA) Urine Ketones Urine Blood Urine Nitrite Ur Leukocyte Esterase Urine RBC Urine WBC Ur Squamous Epith Cells Urine Bacteria Hyaline Casts Ethyl Alcohol Influenza Type A (PCR) Influenza Type B (PCR) RSV RNA Qual (PCR) SARS-CoV-2 RNA (RT-PCR) 10/19/23 10/19/23 10/19/23 07:38 11:12 15:47 WBC RBC Hgb Hct MCV MCH MCHC RDW Plt Count MPV Immature Gran % (Auto) Neut % (Auto) Lymph % (Auto) [place] % (Auto) Eos % (Auto) Baso % (Auto) Lymph # (Auto) [place] # (Auto) Eos # (Auto) Baso # (Auto) Abs Immat Gran (auto) Absolute Neuts (auto) Absolute Nucleated RBC Nucleated RBC % (auto) PT INR APTT aPTT Heparin Protocol O2 Saturation ABG pH at Pt Temp ABG pCO2 at Pt Temp ABG pO2 at Pt Temp ABG HCO3 ABG Base Excess (Actual) VBG pH VBG pCO2 VBG pO2 VBG HCO3 VBG O2 Saturation VBG Base Excess Sodium Potassium Chloride Carbon Dioxide Anion Gap BUN Creatinine Estim Creat Clear Calc Estimated GFR POC Glucose 168 H 171 H 167 H Random Glucose Estimat Average Glucose Hemoglobin A1c % Calcium Magnesium Total Bilirubin Direct Bilirubin AST ALT Alkaline Phosphatase Total Creatine Kinase Troponin I High Sens Total Protein Albumin Triglycerides Cholesterol LDL Cholesterol, Calc HDL Cholesterol Lipase TSH Free T4 Urine Color Urine Appearance Urine pH Ur Specific [place] Urine Protein Urine Glucose (UA) Urine Ketones Urine Blood Urine Nitrite Ur Leukocyte Esterase Urine RBC Urine WBC Ur Squamous Epith Cells Urine Bacteria Hyaline Casts Ethyl Alcohol Influenza Type A (PCR) Influenza Type B (PCR) RSV RNA Qual (PCR) SARS-CoV-2 RNA (RT-PCR) Airway Mallampati Class: II TM Dist: >3cm Neck ROM: Full Loose/Missing/Broken Teeth: No Heart: OK. See above. Lungs: OK. Assessment and Plan Assessment Anesthesia Assessment: Anesthesia Plan Discussed Final Anesthetic Review Family History of Problems with Anesthesia: No History of Problems with Anesthesia: No NPO: Yes ASA Class: IV Final Preanesthetic Review: No Changes in Pt Med Stat, Meds/Allgs Chart Reviewed, Consent Obtained/Reviewed (from son Ferny who is the HCP), Anes Risks/Benef Reviewed and DNR Form (If Appl.) Patient Risk: High Procedure Risk: Intermediate Anesthetic Plan Anesthetic Plan: MAC: and Agree w/ Assess. and Plan Disposition: Standard PACU
--- NOTE | 2023-10-19 17:30 | PC.NURSE ---
Patient alert to self and place. Forgetful at times, redirected often. Kaitlynn (daughter in Law) at bedside. Patients Son/HCP Ferny available via phone for consents and PMH. Ring x1 and stuffed animal bear given to Kaitlynn in preop, per patient request.
--- NOTE | 2023-10-19 17:31 | PC.NURSE ---
Patient ate a full breakfast at 0830 and took pills at [address] Palacios made aware. Okay to proceed.
--- NOTE | 2023-10-19 17:32 | PC.NURSE ---
Patient arrived to [facility]. Report obtained from floor nurse Barbara Mazariegos by this nurse. August reported patient had a #20 in left arm, flushing well . Patient arrived to preop with no IV in place. Per patient they took that out yesterday . Anesthesia made aware. New IV, #20 left AC placed by Dr. Palacios, patient tolerated well.
[2023-10-19] MEDS: Acetaminophen 1,000 MG/100 ML PIGGYBACK 400 MG IV (20:24)
--- NOTE | 2023-10-19 21:13 | P.OP_ITS ---
Operative Note Operative Note Date of Service: 10/19/23 Narrative: NAME OF PROCEDURE: Dual chamber pacemaker with Miller INDICATION FOR PROCEDURE: Intermittent Complete heart block Description of Procedure: Patient was identified brought to the electrophysiology laboratory in a postabsorptive state. The left pectoral region was prepped and draped in usual sterile fashion. Incision was made over the left pectoral region and pectoral subcutaneous pocket was made. Afterwards left axillary venous access was obtained using micropuncture needle and fluoroscopic guidance, a 7-Citizen Of [place] sheath was placed. Right ventricular lead was placed in the right ventricular septum with good sensing and pacing thresholds. The sheath was split and the lead was then anchored to the pectoral fascia with Ethibond suture. Afterwards left axillary venous access was obtained using micropuncture needle and fluoroscopic guidance, a 7-Citizen [place] sheath was placed. Right atrial pacing lead was advanced and placed in the base of the right atrial appendage with good sensing and pacing thresholds. The sheath was split and the lead was then anchored to the pectoral fascia with Ethibond suture. The subcutaneous pocket was made and the wound was irrigated with antibiotic solution. The leads were then connected to a pacemaker generator and placed in the pocket. The wound was closed with 3 layers of absorbable sutures. Patient tolerated procedure well. There were no complications. IMPRESSION: Successful implantation of Dual chamber pacemaker (Miller) PLAN: 1. Routine postprocedure monitoring. 2. CXR 3. Post operative Abx 4. EKG 5. Interrogation of device Post-op instructions. Do not shower 3 days Keep bandage on 5 days Restriction of left arm for 4-6 weeks.
[2023-10-19 21:45] LABS: Glucose, Whole Blood 182 mg/dL (60-115)
[2023-10-19] MEDS: Clindamycin Phosphate/D5W 600 MG/50 ML PIGGYBACK 100 MG IV (23:15)
--- NOTE | 2023-10-19 23:17 | PC.NURSE ---
pt HS medications given late r/t previous RN having not medicated patient prior to giving patient to this RN. This RN took over around 22:45. Patient now medicated per MAR, crushed pills in vanilla pudding.
[2023-10-20] VITALS: BP 120/75; PULSE 96; RESP 18; TEMP 36.4; O2SAT 99
[2023-10-20 03:59] VITALS: BP 122/73; PULSE 73; RESP 18; TEMP 36.3; O2SAT 97
[2023-10-20 07:51] VITALS: BP 123/68; PULSE 64; RESP 20; TEMP 36.1; O2SAT 97
[2023-10-20 07:59] LABS: Glucose, Whole Blood 187 mg/dL (60-115)
--- NOTE | 2023-10-20 08:22 | HO.POSTANES ---
Post Anesthesia Evaluation Post Anesthesia Evaluation Date of Service: 10/20/23 Vital Signs: Vital Signs Temp Pulse Resp BP Pulse Ox O2 Del Method 10/20/23 07:51 97 F 64 20 123/68 97 Room Air 10/20/23 03:59 97.3 F 73 18 122/73 97 Room Air 10/20/23 00:00 97.5 F 96 18 120/75 99 Room Air 10/19/23 20:52 97.0 F 102 H 20 156/76 H 98 Room Air Anesthesia: General LMA Mental Status: Awake Pain Control: Satisfactory Nausea/Vomiting: None Hydration: Adequate Anesthesia-Related Issues: No Anes. Related Issues
[2023-10-20] MEDS: Atorvastatin Calcium 80 MG TABLET PO (08:36)
[2023-10-20] MEDS: Tamsulosin HCL 0.4 MG CAPSULE PO (08:36)
[2023-10-20] MEDS: Apixaban 5 MG TABLET PO (08:36)
[2023-10-20] MEDS: Clindamycin Phosphate/D5W 600 MG/50 ML PIGGYBACK 100 MG IV (08:36)
[2023-10-20] MEDS: levETIRAcetam Oral Soln 500 MG/5 ML PO (08:36)
[2023-10-20] MEDS: Sodium Bicarbonate 650 MG TABLET PO (08:36)
[2023-10-20] MEDS: Insulin Lispro 100 UNIT/ML 3 ML VIAL SUBCUT ×2 (08:37→13:13)
[2023-10-20] MEDS: 0.9 % Sodium Chloride Flush 3 ML SYRINGE IVFLUSH (08:37)
[2023-10-20] MEDS: traMADoL HCL 50 MG TABLET PO (09:42)
--- NOTE | 2023-10-20 10:58 | PM.PNCARD ---
Subjective Subjective Date of Service: 10/20/23 Principal diagnosis: Atrial fibrillation Interval history: Status post pacemaker today working well. Rechecked by pacer rep. Patient denies any complaints. Overall feeling well. Review of Systems Review of Systems Yes all other systems are reviewed and are negative Reports Abnormal speech present Physical Exam Vital Signs: Last Vital Signs Temp 97 F 10/20/23 07:51 Pulse 64 10/20/23 07:51 Resp 20 10/20/23 07:51 BP 123/68 10/20/23 07:51 Pulse Ox 97 10/20/23 07:51 O2 Del Method Room Air 10/20/23 07:51 O2 Flow Rate 4 10/19/23 19:52 BMI result Body Mass Index 24.3 Const General: cooperative, comfortable, no acute distress, alert and awake Neck Neck: Yes trachea midline, Yes supple and Yes no JVD Chest Chest palpation & inspection: other (Pacer pocket with small hematoma) Resp Effort & Inspection: normal respiratory effort Auscultation: clear to auscultation bilaterally Cardio Jugular venous distension: no JVD Rhythm: abnormal rhythm irregularly irregular Heart sounds: S1 normal heart sound present, S2 normal heart sound present, no click, no gallops and no murmurs GI Auscultation: normal bowel sounds Neuro Speech: Abnormal speech present Objective Labs and Meds 10/19/23 06:31 10/17/23 05:35 Lab results: Laboratory Results - last 24 hr 10/19/23 10/19/23 10/19/23 11:12 15:47 21:41 POC Glucose 171 H 167 H 182 H 10/20/23 07:55 POC Glucose 187 H Progress Note: A&P Assessment and plan (1) Persistent atrial fibrillation: Status: Acute Assessment and Plan: Persistent atrial fibrillation with slow ventricular response status post pacemaker placement. Continue full oral anticoagulation given his recent stroke. If he has any elevated heart rate can use metoprolol in future. (2) Cardiac pacemaker in situ: Status: Acute Assessment and Plan: Status post single-chamber pacemaker for significant pauses and bradycardia. Pacemaker working well. Will follow up in the clinic. Time Spent With Patient Time: Total time managing care of this patient today ____ minutes. Progress Note: Quality Stroke Does the patient have a stroke diagnosis?: Yes Reason for No Anti-thrombotic by Day Two: Drug treatment not indicated Procedures Date of Service Date of Service: 10/20/23
--- NOTE | 2023-10-20 11:21 | MHC.CM.PN ---
PT WILL DC TO [facility] FOR STR TODAY [facility]IA [facility] AT 1300 HOURS CM MET WITH PT AND SON/HCP, AT BEDSIDE THEY ARE AWARE AND IN AGREEMENT WITH DC TIME/PLAN
[2023-10-20 11:48] VITALS: BP 116/73; PULSE 80; RESP 20; TEMP 36.1; O2SAT 96
[2023-10-20 12:13] LABS: Glucose, Whole Blood 176 mg/dL (60-115)
== END 2023-10-20 13:40 | disposition skilled nursing facility (03) | DRG 40 ==
LOC: HO.ED 10-14 00:22 → HO.EDOVER 10-14 02:13 → HO.IMC 10-14 02:24
PROVIDERS: Internal Medicine; Internal Medicine Cardiovascular Disease; Student in an Organized Health Care Education/Training Program; Admitting Provider Internal Medicine; Emergency Provider Emergency Medicine Emergency Medical Services; PCP Internal Medicine; Visit Provider Internal Medicine
PROC: 02H63JZ Insertion of Pacemaker Lead into Right Atrium, Percutaneous Approach (ICD-10-PCS; principal; 2023-10-19 16:30)
DX: I63.6 Cerebral infarction due to cerebral venous thrombosis, nonpyogenic (principal); G93.41 Metabolic encephalopathy; G81.91 Hemiplegia, unspecified affecting right dominant side; I48.19 Other persistent atrial fibrillation; I44.2 Atrioventricular block, complete; I10 Essential (primary) hypertension; E03.8 Other specified hypothyroidism; E11.649 Type 2 diabetes mellitus with hypoglycemia without coma; I49.5 Sick sinus syndrome; R47.01 Aphasia; N40.1 Benign prostatic hyperplasia with lower urinary tract symptoms; R33.8 Other retention of urine; R29.708 NIHSS score 8; F03.90 Unspecified dementia, unspecified severity, without behavioral disturbance, psychotic disturbance, mood disturbance, and anxiety; R56.9 Unspecified convulsions; Z86.718 Personal history of other venous thrombosis and embolism; G43.909 Migraine, unspecified, not intractable, without status migrainosus; Z20.822 Contact with and (suspected) exposure to COVID-19; Z87.891 Personal history of nicotine dependence; Z86.711 Personal history of pulmonary embolism; Z79.01 Long term (current) use of anticoagulants; Z79.84 Long term (current) use of oral hypoglycemic drugs; Z79.899 Other long term (current) drug therapy
CPT/HCPCS: 0241U; 36415; 36600; 70450; 70496; 70498; 70551; 71045; 76705; 80048; 80053; 80061; 80076; 80307; 81001; 82550; 82803; 82947; 83036; 83690; 83735; 84439; 84443; 84481; 84484; 85025; 85027; 85610; 85730; 92610; 93005; 93306; 97163; 97167; 97530; 99285; A4364; C1758; C1785; C1892; C1894; C1898; C9113; J0131; J0736; J1644; J1650; J1953; J2060; J2371; J2704; J3010; J3370; J7120; Q9957

== ENCOUNTER → 2023-10-13 22:43 | Outpatient (BNV) | payer MEDICARE, SELFPAY | PROVIDERS: Admitting Provider Internal Medicine; Emergency Provider Emergency Medicine Emergency Medical Services; PCP Internal Medicine; Visit Provider Internal Medicine | DX: I48.91 Unspecified atrial fibrillation (principal); R94.31 Abnormal electrocardiogram [ECG] [EKG] | CPT/HCPCS: 93010 ==

== ENCOUNTER 2023-10-14 02:08 | Outpatient (BNV) | payer MEDICARE, SELFPAY | END 2023-10-15 07:00 | PROVIDERS: Admitting Provider Internal Medicine; Emergency Provider Emergency Medicine Emergency Medical Services; PCP Internal Medicine; Visit Provider Internal Medicine Cardiovascular Disease | DX: I42.2 Other hypertrophic cardiomyopathy (principal) | CPT/HCPCS: 93306 ==

== ENCOUNTER → 2023-10-14 02:08 | Outpatient (BNV) | payer MEDICARE, SELFPAY | PROVIDERS: Admitting Provider Internal Medicine; Emergency Provider Emergency Medicine Emergency Medical Services; PCP Internal Medicine; Visit Provider Internal Medicine | DX: I48.19 Other persistent atrial fibrillation (principal) | CPT/HCPCS: 99223; 99233 ==

== ENCOUNTER → 2023-10-14 02:08 | Outpatient (BNV) | payer MEDICARE, SELFPAY | PROVIDERS: Admitting Provider Internal Medicine; Emergency Provider Emergency Medicine Emergency Medical Services; PCP Internal Medicine; Visit Provider Psychiatry & Neurology Neurology | DX: R56.9 Unspecified convulsions (principal) | CPT/HCPCS: 99222 ==

== ENCOUNTER → 2023-10-14 02:08 | Outpatient (BNV) | payer MEDICARE, SELFPAY | PROVIDERS: Admitting Provider Internal Medicine; Emergency Provider Emergency Medicine Emergency Medical Services; PCP Internal Medicine; Visit Provider Internal Medicine | DX: I63.6 Cerebral infarction due to cerebral venous thrombosis, nonpyogenic (principal) | CPT/HCPCS: 99223 ==

== ENCOUNTER → 2023-10-14 02:08 | Outpatient (BNV) | payer MEDICARE, SELFPAY | PROVIDERS: Admitting Provider Internal Medicine; Emergency Provider Emergency Medicine Emergency Medical Services; PCP Internal Medicine; Visit Provider Internal Medicine | DX: I48.19 Other persistent atrial fibrillation (principal); I63.6 Cerebral infarction due to cerebral venous thrombosis, nonpyogenic; R56.9 Unspecified convulsions; I45.5 Other specified heart block | CPT/HCPCS: 99223; 99232; 99233; 99497; 99499 ==

== ENCOUNTER → 2023-11-08 23:59 | Outpatient (BNV) | payer MEDICARE, SELFPAY ==
--- NOTE | 2023-11-11 14:29 | MHC.OFFVIS ---
Intake Visit Reasons: Remote device check- [facility] [place] Allergies Penicillins Allergy (Intermediate, Verified 10/19/23 16:51) Rash [facility] Medical History (Updated 10/28/23 @ 00:02 by Mark Taylor) Diabetes Essential hypertension History of pulmonary embolism Gallbladder sludge Surgical History (Updated 10/19/23 @ 16:52 by Flakita Gutierrez) Previous back surgery Social History Household Members: Family Household Members Other:: Son Housing: Condominium Do you presently have visiting nurse or other home services: No Comment: IV Ofirmev infusing Patient Tobacco Use Status: Former Tobacco user Tobacco use type: Cigarette Years Smoked: 30 Advance Directives Date on File: 10/13/23 service: No Office Procedures Cardiac Device Check Cardiac Device Check Details: Date of service- 11/08/2023 ; Battery life >5 years; normal lead parameters; AP <1 %; [employer] 61%; in atrial fibrillation. Overall normal device function. [id number] Cardiac Device Interrogation, pacemaker Procedure code (CPT) selection complete Assessment & Plan Assessment & Plan (1) Persistent atrial fibrillation: Code(s): I48.19 - Other persistent atrial fibrillation Category: Medical Plan x Coding Level of Care Code Procedure Only Diagnoses Persistent atrial fibrillation I48.19 CPT Codes Cardiac Device Check - Cardiac Device 12: [id number] Cardiac Device Interrogation, pacemaker ([id number])
== END ==
PROVIDERS: PCP Internal Medicine; Visit Provider Internal Medicine
DX: I48.19 Other persistent atrial fibrillation (principal); Z95.0 Presence of cardiac pacemaker
CPT/HCPCS: 93294

== ENCOUNTER 2023-11-27 09:09 | Outpatient (AMB) | payer MEDICARE, SELFPAY ==
--- NOTE | 2023-11-27 09:20 | MHC.OFFVIS ---
Vital Signs 11/27/23 09:24 Height 5 ft 2 in Weight 134 lb 14.766 oz BMI 24.7 BP 110/56 L Blood Pressure Location Lt brachial Position Sitting Pulse 93 Pulse Source Pulse Oximeter Intake Visit Reasons: Follow up- Atrial fibrillation(rs) Entry Examiner Required: No Accompanied by: Family/Other Allergies Penicillins Allergy (Intermediate, Verified 10/19/23 16:51) Rash Medication List - Last Reconciled 11/27/23 by Stan Coppola MD amlodipine 10 mg PO DAILY apixaban (Eliquis) 5 mg PO BID atorvastatin 80 mg PO DAILY fentanyl 50 mcg/hr 1 patch topical Q3D fentanyl 100 mcg/hr 1 patch topical Q3D levetiracetam 500 mg PO BID lisinopril 10 mg PO DAILY metformin 500 mg PO BIDWMEAL omeprazole 20 mg PO BID@0630,1630 sodium bicarbonate 650 mg PO BID tamsulosin 0.4 mg PO DAILY HPI Comments Details: Pavel returns for follow-up regarding atrial fibrillation. He was recently seen in the hospital. He was admitted for facial droop and weakness. In that setting, he was diagnosed to have cerebral venous thrombosis. He also had atrial fibrillation with rapid rate. During the course of this hospitalization, it seems that he then developed bradycardia eventually requiring a pacemaker placement. He was on Xarelto due to history of pulmonary embolism in the past but then it was switched to Eliquis. Since time of that hospitalization, it seems that he has improved a fair amount. He seems to be reasonable for his age. Frailty but otherwise no clear-cut symptoms like angina or shortness of breath or palpitations. [facility] Medical History (Updated 11/27/23 @ 12:05 by Stan Coppola MD) Diabetes Essential hypertension History of pulmonary embolism Gallbladder sludge Surgical History (Updated 10/19/23 @ 16:52 by Flakita Gutierrez) Previous back surgery Family History (Updated 11/27/23 @ 09:28 by Leena Langston CMA) Father Heart attack Social History (Updated 11/27/23 @ 09:27 by Leena Langston CMA) Household Members: Family Household Members Other:: Son Housing: Condominium Do you presently have visiting nurse or other home services: No Alcohol intake: never Comment: IV Ofirmev infusing Patient Tobacco Use Status: Former Tobacco user Tobacco use type: Cigarette Years Smoked: 30 Advance Directives Date on File: 10/13/23 service: No Review of Systems Const Denies chills, Denies fatigue, Denies fever(s), Denies weight gain and Denies weight loss ENT Denies dizziness Card Denies chest pain, Denies leg edema, Denies lightheadedness, Denies palpitations, Denies dyspnea on exertion, Denies orthopnea and Denies other Resp Denies cough and Denies dyspnea on exertion GI Denies hematochezia and Denies change in stool character Musc Denies abnormal gait, Denies muscle weakness, Denies numbness, Denies radiating pain into limb and Denies tingling Neuro Denies abnormal gait, Denies dizziness, Denies numbness and Denies tingling Endo Denies fatigue and Denies palpitations Physical Exam Vital Signs: Last Vital Signs Pulse 93 11/27/23 09:24 BP 110/56 L 11/27/23 09:24 BMI result Body Mass Index 24.7 Const General: comfortable and no acute distress Orientation/consciousness: patient oriented x3 HEENT Other: Unremarkable Head: Yes normal to inspection Neck Neck: Yes normal visual inspection Chest Chest palpation & inspection: normal inspection of the chest Resp Auscultation: clear to auscultation bilaterally Cardio Palpation: normal PMI Heart sounds: S1 normal heart sound present, S2 normal heart sound present, no gallops, no murmurs and no rubs GI Palpation (GI): Soft to palpation Back/Spine/Pelvis Other: unremarkable Skin General skin exam: no rashes or lesions noted Neuro General: patient oriented x3 Extrem General: Yes normal to inspection Psych Mental Status: mental status grossly normal Assessment & Plan Assessment & Plan (1) Persistent atrial fibrillation: Code(s): I48.19 - Other persistent atrial fibrillation Category: Medical (2) Cardiac pacemaker in situ: Code(s): Z95.0 - Presence of cardiac pacemaker Category: Medical Plan During hospitalization, EKG with atrial fibrillation/rapid rate and nonspecific ST-T changes. High sensitivity troponins within normal limits. In the recent echocardiogram, LVEF low normal at 50-55%. Moderate septal hypertrophy. No significant valvular findings. Overall, he does not seem to be on any rate control medications and we can keep it that way for now. If any rapid rates on remote monitoring, then can add beta-blockers. Continue with anticoagulation. Remote pacemaker monitoring noted. We can check his device during next visit. Discussed with family who came for appointment. Medications: Changed From sodium bicarbonate 650 mg PO BID 0 tabs 0RF To sodium bicarbonate 650 mg PO BID From levetiracetam 500 mg (5 mL) PO BID 0 mL 0RF To levetiracetam 500 mg PO BID From tamsulosin 0.4 mg PO DAILY 0 caps 0RF To tamsulosin 0.4 mg PO DAILY Coding Level of Care Code Est Pt Level 3 (82291) Diagnoses Persistent atrial fibrillation I48.19 Cardiac pacemaker in situ Z95.0
[2023-11-27 09:24] VITALS: BP 110/56; PULSE 93; BMI 24.7
== END 2023-11-27 09:53 | disposition home or self-care (01) ==
PROVIDERS: PCP Internal Medicine; Visit Provider Internal Medicine
DX: I48.19 Other persistent atrial fibrillation (principal); Z95.0 Presence of cardiac pacemaker
CPT/HCPCS: 99213

== ENCOUNTER → 2023-11-27 09:09 | Outpatient (BNVA) | payer MEDICARE, SELFPAY | PROVIDERS: PCP Internal Medicine; Visit Provider Internal Medicine | DX: I48.91 Unspecified atrial fibrillation (principal); Z95.0 Presence of cardiac pacemaker | CPT/HCPCS: 99212 ==

== ENCOUNTER → 2024-02-07 23:59 | Outpatient (BNV) | payer MEDICARE, SELFPAY ==
--- NOTE | 2024-02-10 12:29 | MHC.OFFVIS ---
Intake Visit Reasons: Remote device check- [facility] Allergies Penicillins Allergy (Intermediate, Verified 12/14/23 13:40) Rash PFSH Medical History Diabetes Essential hypertension History of pulmonary embolism Gallbladder sludge Surgical History Previous back surgery Family History Father Heart attack Social History Household Members: Family Household Members Other:: Son Housing: Condominium Do you presently have visiting nurse or other home services: No Alcohol intake: never Comment: IV Ofirmev infusing Patient Tobacco Use Status: Former Tobacco user Tobacco use type: Cigarette Years Smoked: 30 Advance Directives Date on File: 10/13/23 service: No Office Procedures Cardiac Device Check Cardiac Device Check Details: Date of service- 02/07/2024 ; Battery life >4years; normal lead parameters; AP <1%; [employer] 78%; AT/AF >99%. Overall normal device function. [id number] Cardiac Device Interrogation, pacemaker Procedure code (CPT) selection complete Assessment & Plan Assessment & Plan (1) Persistent atrial fibrillation: Code(s): I48.19 - Other persistent atrial fibrillation Category: Medical (2) Cardiac pacemaker in situ: Code(s): Z95.0 - Presence of cardiac pacemaker Category: Medical Plan x Coding Level of Care Code Procedure Only Diagnoses Persistent atrial fibrillation I48.19 Cardiac pacemaker in situ Z95.0 CPT Codes Cardiac Device Check - Cardiac Device 12: [id number] Cardiac Device Interrogation, pacemaker ([id number])
== END ==
PROVIDERS: PCP Internal Medicine; Visit Provider Internal Medicine
DX: I48.19 Other persistent atrial fibrillation (principal); Z95.0 Presence of cardiac pacemaker
CPT/HCPCS: 93294

== ENCOUNTER → 2024-03-24 15:00 | Outpatient (BNV) | payer MEDICARE, SELFPAY | PROVIDERS: PCP Internal Medicine; Visit Provider Internal Medicine | DX: I63.6 Cerebral infarction due to cerebral venous thrombosis, nonpyogenic (principal) | CPT/HCPCS: 99214 ==

== ENCOUNTER 2024-04-14 12:21 | Outpatient (AMB) | payer MEDICARE, SELFPAY ==
--- NOTE | 2024-04-14 12:36 | MHC.OFFVIS ---
Vital Signs 04/14/24 12:37 Height 5 ft 4 in Weight 126 lb BMI 21.6 BMI Reason not done Patient refused/unable BP 126/62 Blood Pressure Location Lt brachial Position Sitting Pulse 68 Pulse Source Pulse Oximeter Intake Visit Reasons: 3 mth f/up w/ [facility] ck Allergies Penicillins Allergy (Intermediate, Verified 12/14/23 13:40) Rash Medication List - Last Reconciled 04/14/24 by Stan Coppola MD amlodipine 10 mg PO DAILY apixaban (Eliquis) 5 mg PO BID atorvastatin 80 mg PO DAILY fentanyl 50 mcg/hr 1 patch topical Q3D fentanyl 100 mcg/hr 1 patch topical Q3D levetiracetam 500 mg PO BID lisinopril 10 mg PO DAILY metformin 500 mg PO BIDWMEAL metoprolol succinate ER 25 mg PO DAILY omeprazole 20 mg PO BID@0630,1630 sodium bicarbonate 650 mg PO BID tamsulosin 0.4 mg PO DAILY HPI Comments Details: Pavel returns for follow-up regarding atrial fibrillation. He was recently seen in 10/2023. He was admitted for facial droop and weakness. In that setting, he was diagnosed to have cerebral venous thrombosis. He also had atrial fibrillation with rapid rate. During the course of this hospitalization, it seems that he then developed bradycardia eventually requiring a pacemaker placement. He was on Xarelto due to history of pulmonary embolism in the past but then it was switched to Eliquis. Overall, he states he feels good. He comes in a wheelchair. Frailty but otherwise no cardiac symptoms. [facility] Medical History (Updated 03/24/24 @ 14:56 by Cherise Estrada MD) Diabetes Essential hypertension History of pulmonary embolism Gallbladder sludge Surgical History (Updated 03/24/24 @ 14:56 by Cherise Estrada MD) Previous back surgery Family History Father Heart attack Social History Household Members: Family Household Members Other:: Son Housing: Condominium Do you presently have visiting nurse or other home services: No Alcohol intake: never Comment: IV Ofirmev infusing Patient Tobacco Use Status: Former Tobacco user Tobacco use type: Cigarette Years Smoked: 30 Advance Directives Date on File: 10/13/23 service: No Review of Systems Const Denies weakness ENT Denies dizziness Card Denies chest pain, Denies chest pain with activity, Denies syncope, Denies rapid heart rate, Denies pedal edema, Denies edema, Denies leg edema, Denies lightheadedness, Denies palpitations, Denies dyspnea, Denies dyspnea on exertion and Denies orthopnea Resp Denies cough, Denies dyspnea and Denies dyspnea on exertion GI Denies hematochezia and Denies change in stool character Musc Denies abnormal gait, Denies muscle cramps, Denies muscle weakness, Denies numbness, Denies radiating pain into limb and Denies tingling Neuro Denies abnormal gait, Denies dizziness, Denies syncope, Denies numbness, Denies tingling and Denies weakness Endo Denies palpitations Physical Exam Vital Signs: Last Vital Signs Pulse 68 04/14/24 12:37 BP 126/62 04/14/24 12:37 BMI result Body Mass Index 21.6 Const General: comfortable and no acute distress Orientation/consciousness: patient oriented x3 HEENT Other: Unremarkable Head: Yes normal to inspection Neck Neck: Yes normal visual inspection Chest Chest palpation & inspection: normal inspection of the chest Resp Auscultation: clear to auscultation bilaterally Cardio Palpation: normal PMI Heart sounds: S1 normal heart sound present, S2 normal heart sound present, no gallops, no murmurs and no rubs GI Palpation (GI): Soft to palpation Back/Spine/Pelvis Other: unremarkable Skin General skin exam: no rashes or lesions noted Neuro General: patient oriented x3 Extrem General: Yes normal to inspection Psych Mental Status: mental status grossly normal Office Procedures Cardiac Device Check Cardiac Device Check Details: Pacemaker interrogated today. Dual-chamber device, programmed DDDR. Battery status around 8.6-9 years. Normal lead parameters. Atrial pacing less than 1%. Ventricular pacing 83%. Likely persistent atrial fibrillation as the burden > 99%. Rare rapid rates. Overall, normal device function. [id number] Cardiac Device Check, pacemaker dual lead Procedure code (CPT) selection complete Assessment & Plan Assessment & Plan (1) Persistent atrial fibrillation: Code(s): I48.19 - Other persistent atrial fibrillation Category: Medical (2) Cardiac pacemaker in situ: Code(s): Z95.0 - Presence of cardiac pacemaker Category: Medical Plan During hospitalization, EKG with atrial fibrillation/rapid rate and nonspecific ST-T changes. High sensitivity troponins within normal limits. In the echocardiogram, LVEF low normal at 50-55%. Moderate septal hypertrophy. No significant valvular findings. He is on a small dose of metoprolol. On Eliquis. Otherwise, stable. Follow-up in 6 months. Discussed with family who came for appointment. Coding Level of Care Code Est Pt Level 3 (84641) Diagnoses Persistent atrial fibrillation I48.19 Cardiac pacemaker in situ Z95.0 CPT Codes Cardiac Device Check - Cardiac Device 2: 12220-HH Cardiac Device Check, pacemaker dual lead ([id number])
[2024-04-14 12:37] VITALS: BP 126/62; PULSE 68; BMI 21.6
== END 2024-04-14 12:53 | disposition home or self-care (01) ==
PROVIDERS: PCP Internal Medicine; Visit Provider Internal Medicine
DX: I48.19 Other persistent atrial fibrillation (principal); Z95.0 Presence of cardiac pacemaker
CPT/HCPCS: 93280; 99213

== ENCOUNTER → 2024-04-14 12:21 | Outpatient (BNVA) | payer MEDICARE, SELFPAY | PROVIDERS: PCP Internal Medicine; Visit Provider Internal Medicine | DX: I48.19 Other persistent atrial fibrillation (principal); Z86.718 Personal history of other venous thrombosis and embolism; Z79.01 Long term (current) use of anticoagulants; Z45.018 Encounter for adjustment and management of other part of cardiac pacemaker | CPT/HCPCS: 93280; 99212 ==

== ENCOUNTER → 2024-05-09 23:59 | Outpatient (BNV) | payer MEDICARE, SELFPAY ==
--- NOTE | 2024-05-18 18:16 | A.OFFVIS_ITS ---
Intake Visit Reasons: Remote device check- [facility] Allergies Penicillins Allergy (Intermediate, Verified 12/14/23 13:40) Rash [facility] Medical History (Updated 03/24/24 @ 14:56 by Cherise Estrada MD) Diabetes Essential hypertension History of pulmonary embolism Gallbladder sludge Surgical History (Updated 03/24/24 @ 14:56 by Cherise Estrada MD) Previous back surgery Family History Father Heart attack Social History Household Members: Family Household Members Other:: Son Housing: Condominium Do you presently have visiting nurse or other home services: No Alcohol intake: never Comment: IV Ofirmev infusing Patient Tobacco Use Status: Former Tobacco user Tobacco use type: Cigarette Years Smoked: 30 Advance Directives Date on File: 10/13/23 service: No Office Procedures Cardiac Device Check Cardiac Device Check Details: Date of service- 05/09/2024 ; Battery life >8 years; normal lead parameters; AP <1%; 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 Overall normal device function. [id number] Cardiac Device Interrogation, pacemaker Procedure code (CPT) selection complete Assessment & Plan Assessment & Plan (1) Cardiac pacemaker in situ: Code(s): Z95.0 - Presence of cardiac pacemaker Category: Medical (2) Persistent atrial fibrillation: Code(s): I48.19 - Other persistent atrial fibrillation Category: Medical Plan x Coding Level of Care Code Procedure Only Diagnoses Cardiac pacemaker in situ Z95.0 Persistent atrial fibrillation I48.19 CPT Codes Cardiac Device Check - Cardiac Device 12: [id number] Cardiac Device Interrogation, pacemaker ([id number])
== END ==
PROVIDERS: PCP Internal Medicine; Visit Provider Internal Medicine
DX: I48.19 Other persistent atrial fibrillation (principal); Z95.0 Presence of cardiac pacemaker
CPT/HCPCS: 93294

== ENCOUNTER → 2024-08-08 23:59 | Outpatient (BNV) | payer MEDICARE, SELFPAY ==
--- NOTE | 2024-08-17 13:14 | A.OFFVIS_ITS ---
Intake Visit Reasons: Remote device check- [facility] Allergies Penicillins Allergy (Intermediate, Verified 12/14/23 13:40) Rash [facility] Medical History (Updated 03/24/24 @ 14:56 by Cherise Estrada MD) Diabetes Essential hypertension History of pulmonary embolism Gallbladder sludge Surgical History (Updated 03/24/24 @ 14:56 by Cherise Estrada MD) Previous back surgery Family History Father Heart attack Social History Household Members: Family Household Members Other:: Son Housing: Condominium Do you presently have visiting nurse or other home services: No Alcohol intake: never Comment: IV Ofirmev infusing Patient Tobacco Use Status: Former Tobacco user Tobacco use type: Cigarette Years Smoked: 30 Advance Directives Date on File: 10/13/23 service: No Office Procedures Cardiac Device Check Cardiac Device Check Details: Date of service- 08/08/2024 ; Battery life >8 years; normal lead parameters; AP <1%; 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 Overall normal device function. [id number] Cardiac Device Interrogation, pacemaker Procedure code (CPT) selection complete Assessment & Plan Assessment & Plan (1) Persistent atrial fibrillation: Code(s): I48.19 - Other persistent atrial fibrillation Category: Medical (2) Cardiac pacemaker in situ: Code(s): Z95.0 - Presence of cardiac pacemaker Category: Medical Plan x Coding Level of Care Code Procedure Only Diagnoses Persistent atrial fibrillation I48.19 Cardiac pacemaker in situ Z95.0 CPT Codes Cardiac Device Check - Cardiac Device 12: [id number] Cardiac Device Interrogation, pacemaker ([id number])
== END ==
PROVIDERS: PCP Internal Medicine; Visit Provider Internal Medicine
DX: I48.19 Other persistent atrial fibrillation (principal); Z95.0 Presence of cardiac pacemaker
CPT/HCPCS: 93294

== ENCOUNTER 2024-09-09 10:14 | Outpatient (REF) | payer MEDICARE, SELFPAY ==
[2024-09-09 13:12] LABS: MANUAL DIFF FLAG NO
[2024-09-09 13:26] LABS: Basophils Percent Auto 0.6 % (0-2); Eosinophils Absolute Auto 0.1 X10*3/uL (0.0-0.4); Eosinophils Percent Auto 0.8 % (0-4); Hematocrit 46.3 % (42.0-52.0); Hemoglobin 15.3 g/dl (14.0-18.0); Imm Gran Abs Auto 0.01 X10*3/uL (0.00-0.03); Imm Gran Pct Auto 0.2 % (0.0-0.4); Lymphocytes Absolute Auto 2.6 X10*3/uL (1.2-4.9); Lymphocytes Percent Auto 41.1 % (20-40); Mean Corpuscular Hemoglobin 29.7 pg (27.0-33.0); Mean Corpuscular Volume 89.9 fL (80.0-98.0); Mean Platelet Volume 10.8 fL (9.4-12.4); Monocytes Absolute Auto 0.4 X10*3/uL (0.1-1.2); Monocytes Percent Auto 6.5 % (2-11); Neutrophils Absolute Auto 3.2 x10*3/uL (2.0-8.3); Neutrophils Percent Auto 50.8 % (45-73); Platelet Count 241 X10*3/uL (160-400); Red Blood Count 5.15 X10*6/uL (4.60-5.80); Red Cell Distribution Width 13.9 % (11.0-16.0); White Blood Count 6.2 X10*3/uL (4.8-10.8)
[2024-09-09 13:37] LABS: Estimated Average Glucose 137 mg/dL; Hemoglobin A1c % 6.4 % (<6.0); Total Hemoglobin (HGBA1C) 4007.4108 umol/L
[2024-09-09 13:51] LABS: Alanine Aminotransferase 12 U/L (0-40); Albumin Level 4.4 g/dL (3.5-5.0); Alkaline Phosphatase 84 U/L (39-117); Anion Gap 16 (12-20); Aspartate Amino Transferase 25 U/L (5-37); Bilirubin Total 1.1 mg/dL (0.0-1.0); Blood Urea Nitrogen 20 mg/dL (9-16); Calcium 9.4 mg/dL (8.4-10.2); Carbon Dioxide 25 mmol/L (22-29); Chloride 100 mmol/L (96-108); Estimated Glomerular Filt Rate > 60; Glucose Random 116 mg/dL (60-115); Potassium 4.9 mmol/L (3.3-5.1); Sodium 136 mmol/L (135-145); Total Protein 6.9 g/dL (6.5-8.0)
[2024-09-09 13:59] LABS: Creatinine Urine 103.64 mg/dL; Microalbum/Creatinine Ratio Ur 20.2 ug/mg cr (<30)
== END 2024-09-09 10:15 | disposition home or self-care (01) ==
LOC: HO.MANLDS 10:14
PROVIDERS: Visit Provider Internal Medicine
DX: E11.9 Type 2 diabetes mellitus without complications (principal)
CPT/HCPCS: 36415; 80053; 82043; 82570; 83036; 85025

== ENCOUNTER → 2024-11-07 23:59 | Outpatient (BNV) | payer MEDICARE, SELFPAY ==
--- NOTE | 2024-11-11 12:27 | A.OFFVIS_ITS ---
Intake Visit Reasons: Remote device check- [facility] Allergies Penicillins Allergy (Intermediate, Verified 12/14/23 13:40) Rash [facility] Medical History (Updated 03/24/24 @ 14:56 by Cherise Estrada MD) Diabetes Essential hypertension History of pulmonary embolism Gallbladder sludge Surgical History (Updated 03/24/24 @ 14:56 by Cherise Estrada MD) Previous back surgery Family History Father Heart attack Social History Household Members: Family Household Members Other:: Son Housing: Condominium Do you presently have visiting nurse or other home services: No Alcohol intake: never Comment: IV Ofirmev infusing Patient Tobacco Use Status: Former Tobacco user Tobacco use type: Cigarette Years Smoked: 30 Advance Directives Date on File: 10/13/23 service: No Office Procedures Cardiac Device Check Cardiac Device Check Details: Date of service- 11/07/2024 ; Battery life >7 years; normal lead parameters; AP <1 %; 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 Overall normal device function. [id number] Cardiac Device Interrogation, pacemaker Procedure code (CPT) selection complete Assessment & Plan Assessment & Plan (1) Cardiac pacemaker in situ: Code(s): Z95.0 - Presence of cardiac pacemaker Category: Medical (2) Persistent atrial fibrillation: Code(s): I48.19 - Other persistent atrial fibrillation Category: Medical Plan x Coding Level of Care Code Procedure Only Diagnoses Cardiac pacemaker in situ Z95.0 Persistent atrial fibrillation I48.19 CPT Codes Cardiac Device Check - Cardiac Device 12: [id number] Cardiac Device Interrogation, pacemaker ([id number])
== END ==
PROVIDERS: PCP Internal Medicine; Visit Provider Internal Medicine
DX: I48.19 Other persistent atrial fibrillation (principal); Z95.0 Presence of cardiac pacemaker
CPT/HCPCS: 93294

== ENCOUNTER 2024-11-30 19:55 | Inpatient (IN) | payer MEDICARE, SELFPAY ==
--- NOTE | ~2024-11-30 | US_ITS ---
CLINICAL HISTORY: RUQ pain, --- Additional Notes or Special Instructions: gall bladder and CBD US abdomen limited gallbladder Comparison: CT same date Findings: Hydropic gallbladder with sludge and 1 large stone. Stone appears to be impacted in gallbladder neck. No gallbladder wall thickening is noted. Common duct 3.7 mm diameter. Impression: Hydropic gallbladder with sludge and possibly impacted stone in neck No wall thickening or ductal dilation This document has been electronically signed by: Mark Clark MD on 12/01/2024 00:49:03
--- NOTE | ~2024-11-30 | CT_ITS ---
CLINICAL HISTORY: LLQ Abdominal pain CT abdomen and pelvis with contrast Comparison: CT - CT ABDOMEN PELVIS W IV CON - 11/30/24 22:04 EDT US/SR - US ABDOMEN LIMITED - 10/14/23 08:10 EDT Findings: There is a left lower lobe 7 mm pulmonary nodule. Chest CT is recommended on an outpatient/ nonemergent basis. Severe coronary artery atherosclerotic vascular calcifications. Partially included cardiac device. Gallbladder is markedly distended measuring 6.1 cm in diameter. There is intrahepatic biliary ductal dilation. Correlation with right upper quadrant tenderness is recommended. Right upper quadrant ultrasound is recommended for further evaluation if there is clinical concern for acute cholecystitis. Subcentimeter hypodensities throughout the liver and both kidneys too small to accurately characterize by CT criteria statistically represent cysts. Also, there are numerous bilateral renal cysts. Fatty atrophy of the pancreas. There is dense material within the small bowel to the ileum. Large volume of stool throughout the colon. Mass effect on the urinary bladder due to prostate gland enlargement. Appendix is not visualized. The bones are intact. IMPRESSION: 1. Gallbladder is markedly distended measuring 6.1 cm in diameter. There is intrahepatic biliary ductal dilation. Correlation with right upper quadrant tenderness is recommended. Right upper quadrant ultrasound is recommended for further evaluation if there is clinical concern for acute cholecystitis. 2. Large volume of stool throughout the colon. 3. There is a left lower lobe 7 mm pulmonary nodule. Chest CT is recommended on an outpatient/ nonemergent basis. This document has been electronically signed by: Eric Simons DO on 11/30/2024 23:12:03
[2024-11-30 20:14] VITALS: BP 135/62; BP 142/64; PULSE 75; PULSE 79; RESP 16; TEMP 37; O2SAT 98; BMI 22.3
[2024-11-30 20:28] LABS: MANUAL DIFF FLAG NO
[2024-11-30 20:30] LABS: Hematocrit 40.5 % (42.0-52.0); Hemoglobin 13.7 g/dl (14.0-18.0); Imm Gran Abs Auto 0.02 X10*3/uL (0.00-0.03); Imm Gran Pct Auto 0.3 % (0.0-0.4); Lymphocytes Absolute Auto 1.5 X10*3/uL (1.2-4.9); Mean Corpuscular HGB Conc 33.8 g/dl (31.0-36.0); Mean Corpuscular Hemoglobin 30.3 pg (27.0-33.0); Mean Corpuscular Volume 89.6 fL (80.0-98.0); NRBC Abs Auto 0.000 X10*3/uL (0.0-0.012); NRBC Pct Auto 0.0 /100WBC (0.0-0.2); Platelet Count 203 X10*3/uL (160-400); Red Blood Count 4.52 X10*6/uL (4.60-5.80); White Blood Count 7.7 X10*3/uL (4.8-10.8)
[2024-11-30 20:47] LABS: Alanine Aminotransferase 10 U/L (0-40); Albumin Level 4.4 g/dL (3.5-5.0); Alkaline Phosphatase 86 U/L (39-117); Anion Gap 17 (12-20); Aspartate Amino Transferase 20 U/L (5-37); Blood Urea Nitrogen 16 mg/dL (9-16); Calcium 8.6 mg/dL (8.4-10.2); Carbon Dioxide 21 mmol/L (22-29); Chloride 105 mmol/L (96-108); Creatinine Clr Calc Pharmacy 64.5; Estimated Glomerular Filt Rate > 60; Magnesium 1.7 mg/dL (1.6-2.6); Potassium 3.9 mmol/L (3.3-5.1); Sodium 139 mmol/L (135-145); Total Protein 6.5 g/dL (6.5-8.0)
[2024-11-30 21:06] LABS: Resp Syncy Virus RNA Qual PCR NEGATIVE (Negative); SARS COV2 PCR INHOUSE NEGATIVE (Negative)
--- NOTE | 2024-11-30 21:27 | ED.ABDPAIN ---
HPI - Abdominal Pain General Chief Complaint: Abdominal Pain Stated Complaint: left lower abd pain diarrhea Time Seen by Provider: 11/30/24 21:02 Source: patient and EMS Mode of arrival: EMS Limitations: no limitations History of Present Illness ED Provider: HPI narrative: 84-year-old male presenting with severe onset of left lower quadrant abdominal pain from earlier today, associated with nausea no vomiting, has had multiple episodes of diarrhea which does not improve his symptoms, has had no dysuria hematuria no chest pain or shortness of breath. No reports of fever chills or sick contacts. Related Data Home Medications ?Medication ?Instructions ?Recorded ?Confirmed amlodipine 10 mg tablet 10 mg PO DAILY 10/14/23 04/14/24 lisinopril 10 mg tablet 10 mg PO DAILY 10/14/23 04/14/24 levetiracetam 500 mg/5 mL (5 mL) 500 mg PO BID 11/27/23 04/14/24 oral solution sodium bicarbonate 650 mg tablet 650 mg PO BID 11/27/23 04/14/24 tamsulosin 0.4 mg capsule 0.4 mg PO DAILY 11/27/23 04/14/24 Previous Rx's ?Medication ?Instructions ?Recorded atorvastatin 80 mg tablet 80 mg PO DAILY #0 tabs 10/18/23 metformin 500 mg tablet 500 mg PO BIDWMEAL #60 tabs 10/18/23 omeprazole 20 mg capsule,delayed 20 mg PO BID@0630,1630 #0 caps 10/18/23 release apixaban 5 mg tablet (Eliquis) 5 mg PO BID #0 tabs 10/20/23 fentanyl 100 mcg/hr transdermal 1 patch topical Q3D #5 ea 10/20/23 patch fentanyl 50 mcg/hr transdermal 1 patch topical Q3D #5 ea 10/20/23 patch metoprolol succinate 25 mg 25 mg PO DAILY #30 tabs 03/25/24 tablet,extended release 24 hr Allergies Allergy/AdvReac Type Severity Reaction Status Date / Time Penicillins Allergy Intermediate Rash Verified 11/30/24 20:17 Review of Systems Constitutional: Reports as per [facility] Past Medical History Medical History Diabetes Essential hypertension History of pulmonary embolism Gallbladder sludge Surgical History Previous back surgery Family History Family History Father Heart attack Social History Social History Household Members: Family Household Members Other:: Son Housing: Condominium Do you presently have visiting nurse or other home services: No Alcohol intake: never Comment: IV Ofirmev infusing Patient Tobacco Use Status: Former Tobacco user Tobacco use type: Cigarette Years Smoked: 30 Smoked in Last 30 Days: No Use of substances other than those prescribed or required for medical reasons: No Advance Directives: Yes Advance Directives Information Provided: No Advance Directives on File: No Advance Directives Date on File: 10/13/23 Do you have a plan to hurt others: No Plan service: No Physical Exam ED Vital Signs: Vital Signs - 24 hr 11/30/24 20:14 Temperature 98.6 F Pulse Rate 79 Respiratory Rate 16 Blood Pressure 142/64 H Pulse Oximetry 98 Oxygen Delivery Method Room Air BMI result Body Mass Index 22.3 Const Other: Gen: ?Overall well-appearing patient CV: RRR, no obvious murmurs appreciated Resp: ?No wheezing rales rhonchi no stridor moving air well Abd: ?Bowel sounds are present, voluntary guarding, significant tenderness left lower quadrant, no CVA tenderness, no hernias no pulsatile masses MSK: FROM, strength 5/5 all extremities Skin: Chronic skin condition Neuro: ?Alert and oriented x3, Medical Decision Making Medical Decision Making MDM Narrative: We will obtain imaging for consideration as below we will determine whether he needs surgical involvement whether he has any abscesses or obstruction, my high suspicion is he has diverticulitis, he is however quite tender on exam so other consideration includes diverticulitis with perforation, abscess, light do not feel that this is a presentation of the AAA but CT we will revealed that as well, disposition to be determined based on workup Extremely distended gallbladder and CBD dilation we will obtain official ultrasound to consider cholecystitis, choledocholithiasis however on my examination he is not really tender in the right upper quadrant, we will discuss with the hospitalist team if they feel comfortable admitting without GI consult To a.m. patient also has urinary retention this is new, I bladder scanned him he has 300 cc of urine unable to void, nursing was not able to put a fairly catheter, I placed a Childs catheter personally was a coude tip Differential Diagnosis diverticulitis, appendicitis, volvulus, SBO, renal colic, pyelonephritis, urinary retention Admission/Observation Consideration of admission/observation: Escalation of care including admission/observation considered 2022 Emergency Medicine Coding Guide from [employer] on 11/30/2024 All calculations should be rechecked by clinician prior to use RESULT SUMMARY: 4 Estimated Level of Service Problems: Moderate (4) Risk: Moderate (4) Data: Extensive (5) NARRATIVE MDM: This patient's problem complexity is Moderate as patient: has an acute illness with systemic symptoms. This patient's risk is Moderate due to: overall presentation requiring evaluation for a potentially Moderate-risk process. This patient's data complexity is Extensive due to: -multiple tests ordered -independent interpretation of imaging or EKG INPUTS: Number and Complexity ?> 6 = 4: acute illness w/systemic sx (f) Risk level ?> 3 = Moderate Tests ordered ?> 2 = 2 Tests results reviewed (excluding labs) ?> 1 = 1 Prior external notes reviewed ?> 0 = 0 Assessment requiring and independent historian ?> 0 = No Independent interpretation of tests ?> 1 = Yes Discussed management/test interpretation w/external professional ?> 0 = No Lab Data 11/30/24 20:21 11/30/24 20:21 Labs: Lab Results 11/30/24 11/30/24 Range/Units 20:20 20:21 WBC 7.7 (4.8-10.8) X10*3/uL RBC 4.52 L (4.60-5.80) X10*6/uL Hgb 13.7 L (14.0-18.0) g/dl Hct 40.5 L (42.0-52.0) % MCV 89.6 (80.0-98.0) fL MCH 30.3 (27.0-33.0) pg MCHC 33.8 (31.0-36.0) g/dl RDW 13.9 (11.0-16.0) % Plt Count 203 (160-400) X10*3/uL MPV 10.1 (9.4-12.4) fL Immature Gran % (Auto) 0.3 (0.0-0.4) % Neut % (Auto) 73.9 H (45-73) % Lymph % (Auto) 19.8 L (20-40) % [place] % (Auto) 5.2 (2-11) % Eos % (Auto) 0.5 (0-4) % Baso % (Auto) 0.3 (0-2) % Lymph # (Auto) 1.5 (1.2-4.9) X10*3/uL [place] # (Auto) 0.4 (0.1-1.2) X10*3/uL Eos # (Auto) 0.0 (0.0-0.4) X10*3/uL Baso # (Auto) 0.0 (0.0-0.2) X10*3/uL Abs Immat Gran (auto) 0.02 (0.00-0.03) X10*3/uL Absolute Neuts (auto) 5.7 (2.0-8.3) x10*3/uL Absolute Nucleated RBC 0.000 (0.0-0.012) X10*3/uL Nucleated RBC % (auto) 0.0 (0.0-0.2) /100WBC Sodium 139 (135-145) mmol/L Potassium 3.9 D (3.3-5.1) mmol/L Chloride 105 (96-108) mmol/L Carbon Dioxide 21 L (22-29) mmol/L Anion Gap 17 (12-20) BUN 16 (9-16) mg/dL Creatinine 0.71 (0.5-1.4) mg/dL Estim Creat Clear Calc 64.5 Estimated GFR > 60 Random Glucose 219 H (60-115) mg/dL Calcium 8.6 D (8.4-10.2) mg/dL Magnesium 1.7 (1.6-2.6) mg/dL Total Bilirubin 1.4 H (0.0-1.0) mg/dL AST 20 (5-37) U/L ALT 10 (0-40) U/L Alkaline Phosphatase 86 (39-117) U/L Total Protein 6.5 (6.5-8.0) g/dL Albumin 4.4 (3.5-5.0) g/dL Lipase 9 (8-78) U/L Influenza Type A (PCR) NEGATIVE (Negative) Influenza Type B (PCR) NEGATIVE (Negative) RSV RNA Qual (PCR) NEGATIVE (Negative) SARS-CoV-2 RNA (RT-PCR) NEGATIVE (Negative) Independent Interpretation I performed an independent interpretation of an: CT Scan (Distended gallbladder, pronounced constipation, no obvious diverticulitis colitis or aortic dissection) Radiology Impression Discussion of test interpretation with radiology: I have reviewed the radiologist's reading. (2022 Emergency Medicine Coding Guide from [employer] on 11/30/2024 All calculations should be rechecked by clinician prior to use RESULT SUMMARY: 3 Estimated Level of Service Problems: Low (3) Risk: Low (3) Data: Moderate (4) NARRATIVE MDM: This patient's problem complexity is Low as pat) Chronic Conditions Patient?s care impacted by: Diabetes and Hypertension Medications Administered Discontinued Medications Generic Name Dose Route Start Last Admin Trade Name Freq PRN Reason Stop Dose Admin Acetaminophen 1,000 mg in 100 mls @ 400 mls/hr 11/30/24 21:30 11/30/24 23:33 Ofirmev IV 11/30/24 21:44 Infused ONCE ONE Infusion Sodium Chloride 1,000 mls @ 999 mls/hr 11/30/24 22:00 11/30/24 23:33 Ns IV 11/30/24 23:00 Infused .Q1H1M SHANNA Infusion Iohexol 85 ml 11/30/24 22:24 11/30/24 22:24 Iohexol 350 Mg/Ml 100 Ml Infus..Btl IV 11/30/24 22:25 85 ml ONCE ONE Administration Morphine Sulfate 4 mg 11/30/24 21:57 11/30/24 23:09 Morphine Sulfate 4 Mg/Ml Cartridge IVPUSH 11/30/24 21:58 Not Given ONCE ONE Protocol Ondansetron HCl 4 mg 11/30/24 21:57 11/30/24 23:09 Ondansetron Hcl 4 Mg/2 Ml Vial IVPUSH 11/30/24 21:58 Not Given ONCE ONE Discharge Plan Discharge Clinical Impression: Abdominal pain, acute, left lower quadrant, Acute urinary retention, Enlarged gallbladder Patient Disposition: Admitted As Inpatient Print Language: Armenian
[2024-11-30] MEDS: iohexoL 350 MG/ML 100 ML INFUS..BTL 85 ML IV (22:24)
--- NOTE | 2024-11-30 22:39 | PC.NURSE ---
Called to room by pt, requesting to use the urinal. Pt assisted to stand at bedside to use urinal. Pt having diff urinating. Pt states this has never happened to him before. Offered to str cath pt, currently pt refuses, provider made aware
[2024-12-01] VITALS (7 sets, daily range): BP systolic 110–157; BP diastolic 56–83; PULSE 70–71; RESP 16–18; TEMP 36.4–37.2; O2SAT 96–98; BMI 23.3
--- NOTE | 2024-12-01 01:45 | PM.IMHP ---
History of Present Illness Date of Service: 12/01/24 Attending physician on admission: Jesse Long Chief Complaint: LLQ abd pain Pt is an 84 yo male with PMH AFIB on Eliquis, CVA, NIDDM, Seizure, hypothyroidism, PPM placement (last checked 11/05), HTN, HLD, GERD, BPH presents to ED BIBA for increasing LLQ abdominal pain. Pt states pain started hours prior to calling 911 and pain was resolved by the time pt arrived (unsure if pt was medicated). CT scan then US completed in the ED and fund CBD dilitation with possible impacted stone in neck of gallbladder. LFT's were WNL. TBILI 1.4, baseline 1.1. Pt currently NPO, complaining of no pain or N/V. ED provider did not contact GI prior to admission and reviewed with hospitalist by phone (pt accepted with plan to consult GI in the AM). In additon, CT notes fecal burden throughout. Pt states last normal BM was 2 days prior. Since then, pt has had liquid stool. Pt also found to have urinary retention of 300 ccs with bladder scan and al was placed by ED provider. Urine noted to be cloudy. Al was placed, balloon inflated and pt experienced no discomfort with placement. Pt currently homebound, lives with son and states he generally cannt sit still. Pt states he legs are restless but pt has not hx of RLS. Pt denies any falls or injuries in the last 2 months. Review of Systems Review of Systems: Pt denies chest pain, SOB at rest, current abd pain, N/V. Pt denies ADAMS, fever, but did report chills on the way in while on ambulance. Yes all other systems are reviewed and are negative [facility] Medical History Fall BPH (benign prostatic hyperplasia) Stroke Afib Diabetes Essential hypertension History of pulmonary embolism Gallbladder sludge Cognitive capacity: A/O X3 Functional capacity: uses cane/walker Family History Father Heart attack Surgical History Previous back surgery Social History (Reviewed 12/01/24 @ 02:28 by APOLLO Hickman Household Members: Family Household Members Other:: Son Housing: Condominium Do you presently have visiting nurse or other home services: No Alcohol intake: never Comment: IV Ofirmev infusing Patient Tobacco Use Status: Former Tobacco user Tobacco use type: Cigarette Years Smoked: 30 Smoked in Last 30 Days: No Use of substances other than those prescribed or required for medical reasons: No Advance Directives: Yes Advance Directives Information Provided: No Advance Directives on File: No Advance Directives Date on File: 10/13/23 Do you have a plan to hurt others: No Plan service: No Ebola Risk: Travel/Contact With Anyone From Affected Area/s: No Has Patient Experienced Ebola Symptoms: No Meds Allergies Allergy/AdvReac Type Severity Reaction Status Date / Time Penicillins Allergy Intermediate Rash Verified 11/30/24 20:17 Active Medications: Current Medications Acetaminophen (Acetaminophen 325 Mg Tablet) 650 mg PO Q6H PRN PRN Reason: Pain, Mild 1-3,fever,headache Calcium Carbonate (Calcium Carbonate 750 Mg Tab.Chew) 750 mg PO Q4H PRN PRN Reason: Heartburn Magnesium Hydroxide (Milk Of Magnesia 30 Ml Oral.Susp) 30 ml PO DAILY PRN PRN Reason: Constipation Melatonin (Melatonin 3 Mg Tablet) 6 mg PO BEDTIME PRN PRN Reason: Insomnia Sodium Chloride (0.9 % Sodium Chloride Flush 3 Ml Syringe) [facility] Medications ?Medication ?Instructions ?Recorded ?Confirmed ?Last Taken ?Type amlodipine 10 mg tablet 10 mg PO DAILY 10/14/23 04/14/24 10/12/23 History lisinopril 10 mg tablet 10 mg PO DAILY 10/14/23 04/14/24 10/12/23 History levetiracetam 500 mg/5 mL (5 mL) 500 mg PO BID 11/27/23 04/14/24 Unknown History oral solution sodium bicarbonate 650 mg tablet 650 mg PO BID 11/27/23 04/14/24 Unknown History tamsulosin 0.4 mg capsule 0.4 mg PO DAILY 11/27/23 04/14/24 Unknown History Physical Exam Vital Signs and Narrative: Vital Signs: Last Vital Signs Temp 98.6 F 11/30/24 20:14 Pulse 79 11/30/24 20:14 Resp 16 11/30/24 20:14 BP 142/64 H 11/30/24 20:14 Pulse Ox 98 11/30/24 20:14 O2 Del Method Room Air 11/30/24 20:14 BMI result Body Mass Index 22.3 Alert and orientated X3, able to give good history. Neuro: CN II-X11 intact, no obvious deficits, visual acuity intact EYES: PERRLA, EOM intact, sclera nonicteric ENT: hearing intact, no issues with swallowing, uvula midline, lips moist, nares patent no epistaxis Cardiac: S1 S2 RRR, no murmur, no JVD, no edema in Lower ext Pulmonary: lungs diminshed B Abdominal: BS active in all 4 quadrant, distenson noted, no pain, tenderness or guarding with exam currently MSK: strength 4/5 upper and lower extremities : no CVA tenderness, al placed draining cloudy yellow urine Extremities: no edema in lower extremities, PT and DP pulses palpable +2 Psych: mood stable, judgement and insight good Skin: intact, unable to view backside due to procedure at bedside Results Labs 11/30/24 20:21 11/30/24 20:21 Labs: Laboratory Results - last 24 hr 11/30/24 11/30/24 20:20 20:21 MCV 89.6 MCH 30.3 MCHC 33.8 RDW 13.9 Plt Count 203 MPV 10.1 Immature Gran % (Auto) 0.3 Neut % (Auto) 73.9 H Lymph % (Auto) 19.8 L Est[place] % (Auto) 5.2 Eos % (Auto) 0.5 Baso % (Auto) 0.3 Lymph # (Auto) 1.5 Est[place] # (Auto) 0.4 Eos # (Auto) 0.0 Baso # (Auto) 0.0 Abs Immat Gran (auto) 0.02 Absolute Neuts (auto) 5.7 Absolute Nucleated RBC 0.000 Nucleated RBC % (auto) 0.0 Anion Gap 17 Estim Creat Clear Calc 64.5 Estimated GFR > 60 Random Glucose 219 H Calcium 8.6 D Magnesium 1.7 Total Bilirubin 1.4 H AST 20 ALT 10 Alkaline Phosphatase 86 Total Protein 6.5 Albumin 4.4 Influenza Type A (PCR) NEGATIVE Influenza Type B (PCR) NEGATIVE RSV RNA Qual (PCR) NEGATIVE SARS-CoV-2 RNA (RT-PCR) NEGATIVE ECG Prior ECG tracings: not available for review Imaging Radiologist's Impressions: US ABD Impression: Hydropic gallbladder with sludge and possibly impacted stone in neck No wall thickening or ductal dilation CT scan ABD IMPRESSION: 1. Gallbladder is markedly distended measuring 6.1 cm in diameter. There is intrahepatic biliary ductal dilation. Correlation with right upper quadrant tenderness is recommended. Right upper quadrant ultrasound is recommended for further evaluation if there is clinical concern for acute cholecystitis. 2. Large volume of stool throughout the colon. 3. There is a left lower lobe 7 mm pulmonary nodule. Chest CT is recommended on an outpatient/ nonemergent basis. 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 Pt being admitted for gallstone calculus and need for GI evaluation. Gallbladder neck calculus and CBD dilitation 3.7 cm GI consulted Pain mgmt prn (pt currently pain free on admission) LFTs WNL TBILI 1.4 NPO No leukocytosis, fever Large stool burden Last normal BM 2 days prior Dulcolax suppository ordered Bowel regimen upgraded, for when pt is no longer NPO 7 mm pulmonary nodule Incidental finding on CT scan Pt will need follow up as an outpatient with monitoring as recommended BPH with urinary retention Retention 300 ccs per BS, al placed by ED provider, bad attached, urine cloudy yellow Await UA prior to starting ABX Flomax to continue once pt no longer NPO Voiding trial after GI work up is completed AFIB on eliquis Telemetry Eliqui s held due to potential for GI interventin Metoprolol (IV vs PO), pt currently NPO, prn BB ordered NIDDM SSI for NPO status Diabetic diet when allowed to eat S/p CVA Pt uses walker Fall prevention No issues with dysphagia DVT prophylaxis: held in case GI needs to do procedure MED REC PENDING DNR DNI Quality Stroke Does the patient have a stroke diagnosis?: No Reason for No Anti-thrombotic by Day Two: Contraindicated VTE Prior VTE?: No VTE Risk Level:: Medical - moderate - high VTE Device Contraindication: N/A - Device Ordered VTE Drug Contraindication: N/A - Med Ordered
[2024-12-01 02:04] LABS: Lipase 9 U/L (8-78)
--- NOTE | 2024-12-01 02:10 | PC.NURSE ---
This ad writer assumed care of this Pt at 0100. Pt A&Ox3, EAGLE, denies any pain. Reports pressure feeling to pubic bone. Provider Cristina at bedside placing 16F coude F/C.
[2024-12-01 02:18] LABS: Glucose, Whole Blood 156 mg/dL (60-115)
[2024-12-01 02:30] LABS: Appearance Urine Clear; Glucose Urine UA 100 mg/dL (Negative); PH 6.0 (5.0-9.0); Specific Gravity - Urine >= 1.030 (1.005-1.025); UMIC TRIGGER UACC YES
[2024-12-01] MEDS: Lidocaine HCl 2 % Urojet 10 ML JEL.PF.APP TOPICAL (02:42)
[2024-12-01 05:20] LABS: MANUAL DIFF FLAG NO
[2024-12-01 05:23] LABS: Hematocrit 37.2 % (42.0-52.0); Hemoglobin 12.4 g/dl (14.0-18.0); Imm Gran Abs Auto 0.03 X10*3/uL (0.00-0.03); Imm Gran Pct Auto 0.5 % (0.0-0.4); Lymphocytes Absolute Auto 2.0 X10*3/uL (1.2-4.9); Mean Corpuscular HGB Conc 33.3 g/dl (31.0-36.0); Mean Corpuscular Hemoglobin 30.4 pg (27.0-33.0); Mean Corpuscular Volume 91.2 fL (80.0-98.0); NRBC Abs Auto 0.000 X10*3/uL (0.0-0.012); NRBC Pct Auto 0.0 /100WBC (0.0-0.2); Platelet Count 166 X10*3/uL (160-400); Red Blood Count 4.08 X10*6/uL (4.60-5.80); White Blood Count 6.6 X10*3/uL (4.8-10.8)
[2024-12-01 05:28] LABS: INTERNATIONAL NORM RATIO 1.4 (0.9-1.1); Prothrombin Time 15.9 SEC (10.9-12.4)
[2024-12-01 05:37] LABS: Alanine Aminotransferase 8 U/L (0-40); Albumin Level 3.5 g/dL (3.5-5.0); Alkaline Phosphatase 66 U/L (39-117); Anion Gap 13 (12-20); Aspartate Amino Transferase 18 U/L (5-37); Blood Urea Nitrogen 12 mg/dL (9-16); Calcium 8.3 mg/dL (8.4-10.2); Carbon Dioxide 22 mmol/L (22-29); Chloride 109 mmol/L (96-108); Cholesterol 125 mg/dL (<200); Creatinine Clr Calc Pharmacy 69.4; Estimated Glomerular Filt Rate > 60; HDL Cholesterol 41 mg/dL (>40); Potassium 4.6 mmol/L (3.3-5.1); Sodium 139 mmol/L (135-145); Total Protein 5.3 g/dL (6.5-8.0); Triglycerides 33 mg/dL (<150)
--- NOTE | 2024-12-01 06:13 | MHC.EDTECH ---
700ml urine emptied from al bag
--- NOTE | 2024-12-01 07:56 | PHA.MEDREC ---
Addendum entered by Elia Dsouza PharmD 12/01/24 08:08: reviewed Original Note: Pharmacy Consult ? Medication Reconciliation Pharmacy has completed the medication reconciliation. Spoke to patient to confirm med list. With some prompting patient was able to say yes or no to any medications asked. Patient states he is no longer taking Atorvastatin 80 mg, Metoprolol succ 25 mg, Sodium bicarbonate, and Tamsulosin 0.4 mg. Patient confirmed Fentanyl 50 mcg and Fentanyl 100 mcg Q72H location of patches are on each side of torso on 11/30/24.Patient last had his medications 11/29/24
[2024-12-01] MEDS: 0.9 % Sodium Chloride Flush 3 ML SYRINGE IVFLUSH (08:00)
[2024-12-01 08:02] LABS: Glucose, Whole Blood 86 mg/dL (60-115)
--- NOTE | 2024-12-01 08:56 | PM.CNGS ---
History of Present Illness Consult details Consult date: 12/01/24 <Serena Villalba PA-C Last Filed: 12/01/24 10:01> Requesting physician: Misael Ferreira <Serena Villalba PA-C Last Filed: 12/01/24 10:01> Narrative: 84 year old male with PMH of a fib on eliquis, pacemaker in place, CVA, diabetes mellitus, seizures, HTN, HLD, GERD, BPH who presented to the ED with complaints of LLQ abd pain. He reports the pain began yesterday afternoon and was severe. He is unable to provide any descriptive qualities but does not report any provoking or exacerbating factors. The pain was associated with nausea without vomiting. He then began to have multiple loose nonbloody stools. The pain had subsided by the time EMS arrived. Work up in the ED included CBC, BMP, LFTs which was significant for a mildly elevated total bilirubin. No leukocytosis. CT scan abd/pelvis and ABD US showed a very distended gallbladder, gallstones without gallbladder wall thickening or pericholecystitic fluid. Mild intrahepatic ductal dilatation, CBD normal. Colon was FOS. He was found to have urinary retention of 300cc and al was placed. <Serena Villalba PA-C Last Filed: 12/01/24 10:01> Review of Systems Constitutional: Constitutional: Denies chills and Denies fever(s) <AURE Deutsch Filed: 12/01/24 10:01> ENT: Denies dizziness <AURE Deutsch Filed: 12/01/24 10:01> Cardiovascular: Cardiovascular: Denies palpitations and Denies dyspnea <AURE Deutsch Last Filed: 12/01/24 10:01> Respiratory: Respiratory: Denies dyspnea <AURE Deutsch Filed: 12/01/24 10:01> Gastrointestinal: Gastrointestinal: Reports as per HPI, Reports abdominal pain, Denies melena, Denies hematochezia, Reports loose stools and Denies vomiting <AURE Deutsch Filed: 12/01/24 10:01> Integumentary/Breasts: Skin/Breast: Denies rash and Denies jaundice <AURE Deutsch Last Filed: 12/01/24 10:01> Neurologic: Denies dizziness <AURE Deutsch Last Filed: 12/01/24 10:01> Endocrine: Endocrine: Denies palpitations <AURE Deutsch Last Filed: 12/01/24 10:01> [facility] Past Medical History Medical History: Medical History Fall BPH (benign prostatic hyperplasia) Stroke Afib Diabetes Essential hypertension History of pulmonary embolism Gallbladder sludge <AURE Deutsch Last Filed: 12/01/24 10:01> Family History Family History: Family History Father Heart attack <AURE Deutsch Last Filed: 12/01/24 10:01> Surgical History Surgical History: Surgical History Previous back surgery <AURE Deutsch Last Filed: 12/01/24 10:01> Social History Social History: Social History Household Members: Family Household Members Other:: Son Housing: Condominium Do you presently have visiting nurse or other home services: No Alcohol intake: never Comment: IV Ofirmev infusing Patient Tobacco Use Status: Former Tobacco user Tobacco use type: Cigarette Years Smoked: 30 Smoked in Last 30 Days: No Patient Interested in Nicotine Replacement: No Patient Given Instructions on How to Stop Smoking: No Second Hand Smoke Exposure: No Use of substances other than those prescribed or required for medical reasons: No Have you been hit, kicked, punched, or otherwise hurt by someone within the past year? If so, by whom?: No Do you feel safe in your current relationship?: No Current Relationship Is there a partner from a previous relationship who is making you feel unsafe now?: No Are you made to feel afraid or neglected: No Advance Directives: No Advance Directives Information Provided: No Advance Directives on File: No Advance Directives Date on File: 10/13/23 Do you have a plan to hurt others: No Plan Recently lost weight without trying: No Eating poorly because of decreased appetite: No Nutrition Risks: No Nutritional Risk Poor oral hygiene: No service: No <Serena Villalba PA-C - Last Filed: 12/01/24 10:01> Travel History Ebola Risk: Travel/Contact With Anyone From Affected Area/s: No <Serena Villalba PA-C - Last Filed: 12/01/24 10:01> Has Patient Experienced Ebola Symptoms: No <AURE Deutsch Last Filed: 12/01/24 10:01> Meds Allergies/Adverse reactions: Allergies Allergy/AdvReac Type Severity Reaction Status Date / Time Penicillins Allergy Intermediate Rash Verified 11/30/24 20:17 <AURE Deutsch Last Filed: 12/01/24 10:01> Active Medications: Current Medications Acetaminophen (Acetaminophen 325 Mg Tablet) 650 mg PO Q6H PRN PRN Reason: Pain, Mild 1-3,fever,headache Calcium Carbonate (Calcium Carbonate 750 Mg Tab.Chew) 750 mg PO Q4H PRN PRN Reason: Heartburn Dextrose (Dextrose 50 % 25 Gm/50 Ml Syringe) 25 gm IVPUSH Q15M PRN; Protocol PRN Reason: per Hypoglycemia Standing Ord. Glucose (Glucose Gel 15 Gm Gel..Gram.) 15 gm PO Q15M PRN; Protocol PRN Reason: per Hypoglycemia Standing Ord. Sodium Chloride (Ns) 1,000 mls @ 80 mls/hr IVCONT .[id number] [facility] Last Admin: 12/01/24 02:37 Dose: 80 mls/hr Insulin Human Lispro (Insulin Lispro 100 Unit/Ml 3 Ml Vial) 0 unit SUBCUT Q6H [facility]; Protocol Last Admin: 12/01/24 08:01 Dose: Not Given Magnesium Hydroxide (Milk Of Magnesia 30 Ml Oral.Susp) 30 ml PO DAILY PRN PRN Reason: Constipation Melatonin (Melatonin 3 Mg Tablet) 6 mg PO BEDTIME PRN PRN Reason: Insomnia Sodium Chloride (0.9 % Sodium Chloride Flush 3 Ml Syringe) 3 ml IVFLUSH QSHIFT [facility] Last Admin: 12/01/24 08:00 Dose: 3 ml <AURE Deutsch Last Filed: 12/01/24 10:01> Home medications: Home Medications ?Medication ?Instructions ?Recorded ?Confirmed ?Last Taken ?Type amlodipine 10 mg tablet 10 mg PO DAILY 10/14/23 12/01/24 11/29/24 History lisinopril 10 mg tablet 10 mg PO DAILY 10/14/23 12/01/24 11/29/24 History fentanyl 100 mcg/hr transdermal 100 mcg topical Q72H 12/01/24 12/01/24 11/30/24 History patch fentanyl 50 mcg/hr transdermal 50 mcg topical Q72H 12/01/24 12/01/24 11/30/24 History patch levetiracetam 500 mg tablet 500 mg PO DAILY 12/01/24 12/01/24 11/29/24 History mirtazapine 15 mg tablet 15 mg PO DAILY PRN Sleep 12/01/24 12/01/24 Unknown History <AURE Deutsch Last Filed: 12/01/24 10:01> Physical Exam Vital Signs: Vital Signs: Last Vital Signs Temp 97.9 F 12/01/24 06:12 Pulse 70 12/01/24 06:12 Resp 16 12/01/24 06:12 BP 110/56 L 12/01/24 06:12 Pulse Ox 96 12/01/24 06:12 O2 Del Method Room Air 12/01/24 06:12 BMI result Body Mass Index 22.3 <AURE Deutsch Last Filed: 12/01/24 10:01> Const: General: comfortable, no acute distress and alert <AURE Deutsch Last Filed: 12/01/24 10:01> Resp: Effort & Inspection: normal respiratory effort <AURE Deutsch Last Filed: 12/01/24 10:01> GI: Inspection: Yes normal to inspection, No distended and No scar <AURE Deutsch Last Filed: 12/01/24 10:01> Palpation (GI): Soft to palpation, Tenderness to palpation present (GI) (mild left sided tenderness) not in the RUQ, Chahal's sign negative and with no rebound tenderness, no guarding and not rigid <AURE Deutsch Last Filed: 12/01/24 10:01> Skin: General skin exam: no rashes or lesions noted and no jaundice <AURE Deutsch Last Filed: 12/01/24 10:01> Results Labs Result diagrams: 12/01/24 05:14 12/01/24 05:14 <AURE Deutsch Last Filed: 12/01/24 10:01> Labs: Abnormal lab results 11/30/24 12/01/24 12/01/24 Range/Units 20: 01:50 02:23 RBC 4.52 L (4.60-5.80) X10*6/uL Hgb 13.7 L (14.0-18.0) g/dl Hct 40.5 L (42.0-52.0) % Immature Gran % (Auto) (0.0-0.4) % Neut % (Auto) 73.9 H (45-73) % Lymph % (Auto) 19.8 L (20-40) % PT (10.9-12.4) SEC INR (0.9-1.1) Chloride (96-108) mmol/L Carbon Dioxide 21 L (22-29) mmol/L POC Glucose 156 H (60-115) mg/dL Random Glucose 219 H (60-115) mg/dL Calcium (8.4-10.2) mg/dL Total Bilirubin 1.4 H (0.0-1.0) mg/dL Total Protein (6.5-8.0) g/dL Ur Specific Randall >= 1.030 H (1.005-1.025) Urine Glucose (UA) 100 H (Negative) mg/dL Urine Blood Trace H (Negative) Urine RBC 3-5 H (0-2) /HPF 12/01/24 Range/Units 05:14 RBC 4.08 L (4.60-5.80) X10*6/uL Hgb 12.4 L (14.0-18.0) g/dl Hct 37.2 L (42.0-52.0) % Immature Gran % (Auto) 0.5 H (0.0-0.4) % Neut % (Auto) (45-73) % Lymph % (Auto) (20-40) % PT 15.9 H (10.9-12.4) SEC INR 1.4 H (0.9-1.1) Chloride 109 H (96-108) mmol/L Carbon Dioxide (22-29) mmol/L POC Glucose (60-115) mg/dL Random Glucose (60-115) mg/dL Calcium 8.3 L (8.4-10.2) mg/dL Total Bilirubin 1.5 H (0.0-1.0) mg/dL Total Protein 5.3 L (6.5-8.0) g/dL Ur Specific Randall (1.005-1.025) Urine Glucose (UA) (Negative) mg/dL Urine Blood (Negative) Urine RBC (0-2) /HPF Short CBC 11/30/24 12/01/24 Range/Units 20:21 05:14 WBC 7.7 6.6 (4.8-10.8) X10*3/uL Hgb 13.7 L 12.4 L (14.0-18.0) g/dl Hct 40.5 L 37.2 L (42.0-52.0) % Plt Count 203 166 (160-400) X10*3/uL BMP 11/30/24 12/01/24 20:21 05:14 Sodium 139 139 Potassium 3.9 D 4.6 Chloride 105 109 H Carbon Dioxide 21 L 22 BUN 16 12 Creatinine 0.71 0.66 Calcium 8.6 D 8.3 L Liver Function 11/30/24 12/01/24 Range/Units 20:21 05:14 Total Bilirubin 1.4 H 1.5 H (0.0-1.0) mg/dL AST 20 18 (5-37) U/L ALT 10 8 (0-40) U/L Alkaline Phosphatase 86 66 (39-117) U/L Albumin 4.4 3.5 (3.5-5.0) g/dL Urine 12/01/24 Range/Units 02:23 Urine Color Yellow Urine Appearance Clear Urine pH 6.0 (5.0-9.0) Ur Specific Randall >= 1.030 H (1.005-1.025) Urine Protein Negative (Neg-Trace) mg/dL Urine Glucose (UA) 100 H (Negative) mg/dL All other labs normal. <Serena Villalba PA-C - Last Filed: 12/01/24 10:01> Imaging Abdomen CT scan report/results: report reviewed and image reviewed <Serena Villalba PA-C - Last Filed: 12/01/24 10:01> Abdominal ultrasound report/results: report reviewed and image reviewed <Serena Villalba PA-C - Last Filed: 12/01/24 10:01> Assessment and Plan (1) Abdominal pain, acute, left lower quadrant: Status: Acute <Serena Villlaba PA-C - Last Filed: 12/01/24 10:01> 84-year-old male with multiple medical problems including atrial fibrillation, on anticoagulation, BPH admitted for left lower quadrant pain with urinary retention Cat scan showed a distended gallbladder with question of a stone in the neck Patient denies any right upper quadrant pain Currently does not have any pain or tenderness on exam No Chahal's sign No WBC elevation Clinically does not have acute cholecystitis Would hold off on any surgical intervention at this time We will follow while he is in the hospital Has other medical issues Seen and examined independently <Dennis Alves MD - Last Filed: 12/01/24 11:12> 84 year old male with multiple medical cormorbidities presenting with acute onset LLQ abd pain that has now resolved. He did have a very distended gallbladder on imaging but no surrounding inflammatory changes to suggest acute cholecystitis. His WBC count is also normal. GB distention may be due to NPO status. He has no RUQ tenderness on exam and his abd exam is overall very benign. Would recommend advancing diet as tolerated. Bowel regimen upon discharge for large stool burden. Will continue to follow. <Serena Villalba PA-C - Last Filed: 12/01/24 10:01> Procedures Date of Service Date of Service: 12/01/24 <Serena Villalba PA-C - Last Filed: 12/01/24 10:01> 12/01/24 <Dennis Alves MD - Last Filed: 12/01/24 11:12>
--- NOTE | 2024-12-01 10:53 | HO.PM.IMPN ---
Subjective Subjective Date of Service: 12/01/24 Interval History: Seen and evaluated today. Reports feeling better and wants to eat. Denies pain, N/V/D, says he just feels hungry. My back is stiff from this bed . Review of Systems Review of Systems: Yes all other systems are reviewed and are negative Musculoskeletal Musculoskeletal: Reports back pain and Reports stiffness from this bed Physical Exam Exam: Exam: Constitutional: Alert, and oriented, in no acute distress. Mental Status: Oriented to person, place and time. Eyes: Pupils are equal, round and reactive to light. Ear, Nose and Throat: mucous membranes moist. Ears and nose without deformities. Trachea midline. Respiratory: Clear to auscultation. No wheezing, rales or rhonchi. Cardiovascular: S1 S2 regular. No murmurs, rubs or gallops. Gastrointestinal: Abdomen semi-firm, non-distended. Normal bowel sounds. Tender to deep palpation LLQ.? Neurologic: Cranial nerves II-XII grossly intact. No focal neurological deficits. Moves all extremities spontaneously.? Skin: No rashes or lesions.? Musculoskeletal: No cyanosis or clubbing. Psychiatric: Normal mood and affect? Vital Signs: Vital Signs: Last Vital Signs Temp 98 F 12/01/24 09:46 Pulse 71 12/01/24 09:46 Resp 16 12/01/24 09:46 BP 157/83 H 12/01/24 09:46 Pulse Ox 96 12/01/24 09:46 O2 Del Method Room Air 12/01/24 09:46 BMI result Body Mass Index 23.3 Objective Data Active Medications Acetaminophen (Acetaminophen 325 Mg Tablet) 650 mg PO Q6H PRN PRN Reason: Pain, Mild 1-3,fever,headache Apixaban (Apixaban 5 Mg Tablet) 5 mg PO BID [facility] Last Admin: 12/01/24 10:43 Dose: 5 mg Documented By: ELOISE Calcium Carbonate (Calcium Carbonate 750 Mg Tab.Chew) 750 mg PO Q4H PRN PRN Reason: Heartburn Dextrose (Dextrose 50 % 25 Gm/50 Ml Syringe) 25 gm IVPUSH Q15M PRN; Protocol PRN Reason: per Hypoglycemia Standing Ord. Fentanyl (Fentanyl 50 Mcg Patch.Td72) 50 mcg TRANSDERMA Q72H [facility] Last Admin: 12/01/24 10:27 Dose: Not Given Documented By: ELOISE Non-Admin Reason: pt with new patches placed yesterday Fentanyl (Fentanyl 100 Mcg Patch.Td72) 100 mcg TRANSDERMA Q72H [facility] Last Admin: 12/01/24 10:33 Dose: Not Given Documented By: ELOISE Non-Admin Reason: pt placed patches yesterday Glucose (Glucose Gel 15 Gm Gel..Gram.) 15 gm PO Q15M PRN; Protocol PRN Reason: per Hypoglycemia Standing Ord. Sodium Chloride (Ns) 1,000 mls @ 80 mls/hr IVCONT .[id number] [facility] Last Admin: 12/01/24 02:37 Dose: 80 mls/hr Documented By: MARIXA Insulin Human Lispro (Insulin Lispro 100 Unit/Ml 3 Ml Vial) 0 unit SUBCUT Q6H [facility]; Protocol Last Admin: 12/01/24 08:01 Dose: Not Given Documented By: LOIR Non-Admin Reason: No Insulin Coverage Levetiracetam (Levetiracetam 500 Mg Tablet) 500 mg PO BEDTIME [facility] Magnesium Hydroxide (Milk Of Magnesia 30 Ml Oral.Susp) 30 ml PO DAILY PRN PRN Reason: Constipation Melatonin (Melatonin 3 Mg Tablet) 6 mg PO BEDTIME PRN PRN Reason: Insomnia Mirtazapine (Mirtazapine 15 Mg Tablet) 15 mg PO DAILY PRN PRN Reason: Sleep Omeprazole (Omeprazole 20 Mg Capsule.Dr) 20 mg PO BID@0630,1630 [facility] Last Admin: 12/01/24 10:44 Dose: 20 mg Documented By: ELOISE Sodium Chloride (0.9 % Sodium Chloride Flush 3 Ml Syringe) 3 ml IVFLUSH QSHIFT [facility] Last Admin: 12/01/24 08:00 Dose: 3 ml Documented By: LORI Labs 12/01/24 05:14 12/01/24 05:14 Labs: Laboratory Results - last 24 hr 11/30/24 11/30/24 12/01/24 20:20 20:21 01:50 MCV 89.6 MCH 30.3 MCHC 33.8 RDW 13.9 Plt Count 203 MPV 10.1 Immature Gran % (Auto) 0.3 Neut % (Auto) 73.9 H Lymph % (Auto) 19.8 L Mobile % (Auto) 5.2 Eos % (Auto) 0.5 Baso % (Auto) 0.3 Lymph # (Auto) 1.5 Mobile # (Auto) 0.4 Eos # (Auto) 0.0 Baso # (Auto) 0.0 Abs Immat Gran (auto) 0.02 Absolute Neuts (auto) 5.7 Absolute Nucleated RBC 0.000 Nucleated RBC % (auto) 0.0 PT INR Anion Gap 17 Estim Creat Clear Calc 64.5 Estimated GFR > 60 POC Glucose 156 H Random Glucose 219 H Lactic Acid Calcium 8.6 D Magnesium 1.7 Total Bilirubin 1.4 H AST 20 ALT 10 Alkaline Phosphatase 86 Total Protein 6.5 Albumin 4.4 Triglycerides Cholesterol LDL Cholesterol, Calc HDL Cholesterol Lipase 9 Urine Color Urine Appearance Urine pH Ur Specific Gonzales Urine Protein Urine Glucose (UA) Urine Ketones Urine Blood Urine Nitrite Ur Leukocyte Esterase Urine RBC Urine WBC Ur Squamous Epith Cells Urine Bacteria Hyaline Casts Influenza Type A (PCR) NEGATIVE Influenza Type B (PCR) NEGATIVE RSV RNA Qual (PCR) NEGATIVE SARS-CoV-2 RNA (RT-PCR) NEGATIVE 12/01/24 12/01/24 12/01/24 02:23 05:14 07:59 MCV 91.2 MCH 30.4 MCHC 33.3 RDW 13.8 Plt Count 166 MPV 9.7 Immature Gran % (Auto) 0.5 H Neut % (Auto) 62.8 Lymph % (Auto) 30.0 Mobile % (Auto) 5.9 Eos % (Auto) 0.3 Baso % (Auto) 0.5 Lymph # (Auto) 2.0 Mobile # (Auto) 0.4 Eos # (Auto) 0.0 Baso # (Auto) 0.0 Abs Immat Gran (auto) 0.03 Absolute Neuts (auto) 4.1 Absolute Nucleated RBC 0.000 Nucleated RBC % (auto) 0.0 PT 15.9 H INR 1.4 H Anion Gap 13 Estim Creat Clear Calc 69.4 Estimated GFR > 60 POC Glucose 86 Random Glucose 99 Lactic Acid 1.6 Calcium 8.3 L Magnesium Total Bilirubin 1.5 H AST 18 ALT 8 Alkaline Phosphatase 66 Total Protein 5.3 L Albumin 3.5 Triglycerides 33 Cholesterol 125 LDL Cholesterol, Calc 78 HDL Cholesterol 41 Lipase Urine Color Yellow Urine Appearance Clear Urine pH 6.0 Ur Specific Gonzales >= 1.030 H Urine Protein Negative Urine Glucose (UA) 100 H Urine Ketones Negative Urine Blood Trace H Urine Nitrite Negative Ur Leukocyte Esterase Negative Urine RBC 3-5 H Urine WBC 0-5 Ur Squamous Epith Cells 0-2 Urine Bacteria None Seen Hyaline Casts 0-2 Influenza Type A (PCR) Influenza Type B (PCR) RSV RNA Qual (PCR) SARS-CoV-2 RNA (RT-PCR) Assessment and Plan (1) Abdominal pain, acute, left lower quadrant: Status: Acute Plan Pt is an 84 yo male with PMH AFIB on Eliquis, CVA, NIDDM, Seizure, hypothyroidism, PPM placement (last checked 11/05), HTN, HLD, GERD, BPH presents to ED BIBA for increasing LLQ abdominal pain. Acute abdominal pain-etiology unknown, ? constipation or others.. resolved CT shows large volume stool throughout colon, Gallbladder is markedly distended measuring 6.1 cm in diameter. There is intrahepatic biliary ductal dilation. US shows Hydropic gallbladder with sludge and possibly impacted stone in neck. No wall thickening or ductal dilation Surgery recommended advancing diet as tolerated. Bowel regimen upon discharge for large stool burden. Started clear liquid diet. Gallbladder neck calculus and CBD dilatation 3.7 cm Surgery recommended advancing diet as tolerated. Does not recommend any surgical intervention GI consult pending LFTs WNL TBILI 1.4 No leukocytosis, fever Large stool burden bowel regimen to be upgraded once eating regular diet/discharged 7 mm pulmonary nodule Incidental finding on CT scan Follow up outpatient Acute urinary retention, secondary to BPH and large stool burden al placed in ED, voiding trial after GI work up completed UA neg continue flomax voiding trial Paroxysmal AFIB on eliquis home medications restarted HTN, variable BPs, restart Norvasc today and Lisinipril tomorrow Chropnic back pain fentanyl, PRN tramadol for breakthough pain NIDDM SSI Diabetic diet S/p CVA Pt uses walker Fall prevention No issues with dysphagia DVT prophylaxis: ?Eliquis Code status: DNR DNI dispo: possibly home tomorrow Quality Stroke Does the patient have a stroke diagnosis?: No Reason for No Anti-thrombotic by Day Two: Contraindicated VTE Prior VTE?: No VTE Risk Level:: Medical - moderate - high VTE Device Contraindication: N/A - Device Ordered VTE Drug Contraindication: N/A - Med Ordered
--- NOTE | 2024-12-01 11:48 | MHC.CM.PN ---
PTS SON LIVES WITH HIM HE HAS NO OUTSIUDE AGENCIES ,HAS OWN RIDE HOME DC PLAN HOME W/FAMILY
[2024-12-01 13:35] LABS: Glucose, Whole Blood 179 mg/dL (60-115)
[2024-12-01 16:20] LABS: Glucose, Whole Blood 110 mg/dL (60-115)
--- NOTE | 2024-12-01 17:41 | P.EN_ITS ---
Event Note Date of Service: 12/01/24 Event Note: GI Consultation-Full note dictated. History from patient and EMR. 84 yo male with acute LLQ abdominal pain on the day of admission with associated constipation, urinary retention, and diarrhea. He dose describe a baseline bowel pattern of a BM every 3rd or 4th day. He relates that he is on Fentanyl and thinks that causes constipation. He describes that by the time he got to the ER he was feeling much better and continues to feel well today. There was no eviden ce of bleeding or N/V. He denies any further abdominal pain. He is tolerating liquids and is hungry for some food. His abdominal exam is currently benign. He denies symptoms of gallbladder disease such as RUQ or epigastric pain, jaundice, or anorexia, despite the imaging studies. Imp: I suspect this represented some transient abdominal pain due to the constipation with intestinal spasm, as well as some discomfort from urinary retention. He has no clinical history or findings on exam to suggest active gallbladder disease. Rec: Advance diet as tolerated. Maintain on a daily bowel regimen with Miralax and fiber supplements so as to avoid a recurrence of his symptoms. I don't think any further studies are required unless the situation changes. I agree with the surgical consult to hold off on gallbladder surgery unless he becomes definitvely symptomatic. D/W patient in detail. He was comfortable with the plan. Thanks Time Spent With Patient Time: Total time managing care of this patient today ____ minutes.
--- NOTE | 2024-12-01 19:37 | PC.NURSE ---
Pt tolerated clear liquid diet for lunch and dinner. Denies n/v. Currently without pain
[2024-12-01 21:15] LABS: Glucose, Whole Blood 204 mg/dL (60-115)
[2024-12-02] VITALS (9 sets, daily range): BP systolic 105–125; BP diastolic 58–70; PULSE 70–72; RESP 14–17; TEMP 36–36.7; O2SAT 94–98
--- NOTE | 2024-12-02 02:31 | CONS_ITS ---
DATE OF SERVICE: 12/01/2024 REASON FOR CONSULTATION: Abdominal pain. HISTORY OF PRESENT ILLNESS: This has been obtained from the patient and the medical record. The patient is an 84-year-old male, who describes that he was in his usual state of health up until yesterday at home. He describes that shortly after dinner he began having rather acute and severe left lower quadrant pain. He did go to the bathroom with associated diarrhea. There was no associated hematochezia nor melena as far as he can tell. He never had any nausea or vomiting. The left lower quadrant pain persisted and he called an ambulance. He describes that by the time he got to the ER, the pain was definitely improved spontaneously. Since admission, his pain has resolved and he has not had any further episodes of pain or diarrhea. Prior to yesterday, he was feeling well. He does describe baseline constipation with a bowel movement about every 3rd to 4th day in relation to fentanyl. He does not take any particular bowel regimen. He did not have any associated symptoms such as nausea, vomiting, nor jaundice with the episode of pain and diarrhea he had yesterday. Since admission here, he has been tolerating liquids and is hungry for food. He does describe a colonoscopy many years ago. He denies any known family history of colorectal cancer. He denies any significant heartburn, dysphagia, nor early satiety. At the present time, he reports that he is feeling at his baseline and would definitely like to eat some food. MEDICATIONS: At home include amlodipine, Eliquis, fentanyl patch, lisinopril, metformin, mirtazapine, omeprazole, and Keppra. His medications here in the hospital include acetaminophen, amlodipine, Eliquis, Tums, fentanyl patch, sliding scale insulin, Keppra, lidocaine patch p.r.n., Remeron, morphine p.r.n., omeprazole 20 mg twice a day, Zofran, MiraLAX p.r.n., and tramadol p.r.n. PAST MEDICAL HISTORY: He describes 3 back surgeries and facial surgery for skin cancer. He has also had a pacemaker. He does have atrial fibrillation. Hypertension. Diabetes mellitus. He denies any history of GA, stroke, or pulmonary disease. He does have an underlying history of cerebral vein thrombosis according to the chart. He has been on anticoagulation for that. SOCIAL HISTORY: He presently denies tobacco or alcohol. He is a . He lives with a son. FAMILY HISTORY: Noncontributory. REVIEW OF SYSTEMS: CONSTITUTIONAL: He reports that before yesterday he was eating normally and felt well. SKIN: No rash, no pruritus. CARDIAC: No chest pain. PULMONARY: No coughing or hemoptysis. GI: As above. URINARY: He has had some trouble voiding at home. PHYSICAL EXAMINATION: GENERAL: The patient is a pleasant, alert, comfortable-appearing male. SKIN: Warm and dry. NECK: Supple without lymphadenopathy. CARDIAC: Normal S1, S2. ABDOMEN: Soft, nondistended, normal bowel sounds, and nontender. The right lower quadrant is negative for any mass. The left lower quadrant is presently benign and without any tenderness. The right upper quadrant is also totally benign. LABORATORY DATA AND IMAGING STUDIES: White blood cell count 6.6, hemoglobin 12.4, MCV 91. Platelets 166,000. PT 15.9 with INR 1.4. Normal electrolytes. BUN 12, creatinine 0.7. Normal LFTs except for total bilirubin 1.5, albumin 3.5, and lipase was 9. His initial CT of the abdomen described a markedly distended gallbladder of 6 cm. There was a gallstone. The colon appeared to be full of stool, but without any obstruction or significant distention. There is some mass effect on the urinary bladder due to prostate gland enlargement. The abdominal ultrasound did show a distended gallbladder with some sludge and a large stone. However, there was no gallbladder wall thickening nor surrounding fluid. IMPRESSION: Given the patient's presentation of the acute onset of his pain with preceding constipation, and then associated fairly rapid resolution of the pain after a loose stool and passage of time, would have me believe that the acute left lower quadrant abdominal pain on the day of admission was associated with some constipation, diarrhea, and intestinal spasm. His urinary retention most likely contributed to some of the discomfort as well. It does sound like he has some baseline constipation that I am sure is related to the fentanyl patch. At this point, he appears very well with a benign abdomen and tolerating a liquid diet, as well as claiming that he is hungry for food. At this point, I do not think his presentation was consistent with any type of problems such as peptic ulcer disease, diverticulitis, nor gallbladder disease. I suspect this represented some transient pain in relation to constipation and intestinal spasm. PLAN: At this point, I would recommend advancing his diet as tolerated. He has already been seen by the surgical service who do not think he needs a cholecystectomy. I would continue him on a strict daily bowel regimen with MiraLAX and fiber supplements so as to avoid a recurrence of these symptoms. I would agree with holding off on the gallbladder surgery unless absolutely indicated and required for symptom relief. Thank you for the consultation. MD LAKSHMI Meier/CARLY / [phone] MTDD
[2024-12-02 07:17] LABS: Glucose, Whole Blood 88 mg/dL (60-115)
--- NOTE | 2024-12-02 07:34 | PM.PNGS ---
Subjective Subjective Date of Service: 12/02/24 <Serena Villalba PA-C - Last Filed: 12/02/24 07:37> 12/02/24 <Dennis Alves MD - Last Filed: 12/02/24 11:45> Interval history: Denies any abdominal pain. Tolerated clear liquids and feels hungry this morning. Reports he does not take anything at home for constipation, normally goes every other day, large amount but hard. <Serena Villalba PA-C - Last Filed: 12/02/24 07:37> Physical Exam Vital Signs: Vital Signs: Last Vital Signs Temp 97.7 F 12/02/24 07:03 Pulse 70 12/02/24 07:03 Resp 16 12/02/24 07:03 BP 119/70 12/02/24 07:03 Pulse Ox 97 12/02/24 07:03 O2 Del Method Room Air 12/02/24 07:03 BMI result Body Mass Index 23.3 <Serena Villalba PA-C - Last Filed: 12/02/24 07:37> Const: General: comfortable, no acute distress and alert <Serena Villalba PA-C - Last Filed: 12/02/24 07:37> Resp: Effort & Inspection: normal respiratory effort <AURE Deutsch Last Filed: 12/02/24 07:37> GI: Other: soft, nondistended, nontender <Serena Villalba PA-C - Last Filed: 12/02/24 07:37> Skin: General skin exam: no rashes or lesions noted <Serena Villalba PA-C - Last Filed: 12/02/24 07:37> Objective Data Active Medications Acetaminophen (Acetaminophen 325 Mg Tablet) 650 mg PO Q6H PRN PRN Reason: Pain, Mild 1-3,fever,headache Amlodipine Besylate (Amlodipine Besylate 10 Mg Tablet) 10 mg PO DAILY COUNT INCLUDES [facility]; Protocol Last Admin: 12/01/24 13:07 Dose: 10 mg Documented By: ELOISE Apixaban (Apixaban 5 Mg Tablet) 5 mg PO BID COUNT INCLUDES [facility] Last Admin: 12/01/24 21:06 Dose: 5 mg Documented By: VIVEK Calcium Carbonate (Calcium Carbonate 750 Mg Tab.Chew) 750 mg PO Q4H PRN PRN Reason: Heartburn Dextrose (Dextrose 50 % 25 Gm/50 Ml Syringe) 25 gm IVPUSH Q15M PRN; Protocol PRN Reason: per Hypoglycemia Standing Ord. Fentanyl (Fentanyl 50 Mcg Patch.Td72) 50 mcg TRANSDERMA Q72H COUNT INCLUDES [facility] Last Admin: 12/01/24 10:27 Dose: Not Given Documented By: ELOISE Non-Admin Reason: pt with new patches placed yesterday Fentanyl (Fentanyl 100 Mcg Patch.Td72) 100 mcg TRANSDERMA Q72H COUNT INCLUDES [facility] Last Admin: 12/01/24 10:33 Dose: Not Given Documented By: ELOISE Non-Admin Reason: pt placed patches yesterday Glucose (Glucose Gel 15 Gm Gel..Gram.) 15 gm PO Q15M PRN; Protocol PRN Reason: per Hypoglycemia Standing Ord. Sodium Chloride (Ns) 1,000 mls @ 80 mls/hr IVCONT .[id number] COUNT INCLUDES THE [facility] Last Admin: 12/02/24 02:16 Dose: 80 mls/hr Documented By: VIVEK Insulin Human Lispro (Insulin Lispro 100 Unit/Ml 3 Ml Vial) 0 unit SUBCUT QIDACHS COUNT INCLUDES THE [facility]; Protocol Last Admin: 12/02/24 07:19 Dose: Not Given Documented By: RAJANI Non-Admin Reason: No Insulin Coverage Levetiracetam (Levetiracetam 500 Mg Tablet) 500 mg PO BEDTIME COUNT INCLUDES [facility] Last Admin: 12/01/24 21:06 Dose: 500 mg Documented By: VIVEK Lisinopril (Lisinopril 10 Mg Tablet) 10 mg PO DAILY COUNT INCLUDES THE [facility]; Protocol Magnesium Hydroxide (Milk Of Magnesia 30 Ml Oral.Susp) 30 ml PO DAILY PRN PRN Reason: Constipation Melatonin (Melatonin 3 Mg Tablet) 6 mg PO BEDTIME PRN PRN Reason: Insomnia Mirtazapine (Mirtazapine 15 Mg Tablet) 15 mg PO DAILY PRN PRN Reason: Sleep Omeprazole (Omeprazole 20 Mg Capsule.) 20 mg PO BID@0630,1630 COUNT [facility]CLUDES [facility] Last Admin: 12/02/24 05:56 Dose: 20 mg Documented By: VIVEK Polyethylene Glycol (Polyethylene Glycol 3350 17 Gm Powd.Pack) 17 gm PO DAILY PRN PRN Reason: Constipation Polyethylene Glycol (Polyethylene Glycol 3350 17 Gm Powd.Pack) 17 gm PO DAILY COUNT INCLUDES THE [facility] Sodium Chloride (0.9 % Sodium Chloride Flush 3 Ml Syringe) 3 ml IVFLUSH QSHIFT COUNT INCLUDES THE [facility] Last Admin: 12/02/24 07:25 Dose: Not Given Documented By: RAJANI Non-Admin Reason: IV Running Tramadol HCl (Tramadol Hcl 50 Mg Tablet) 25 mg PO Q6H PRN PRN Reason: Pain, Severe (Pain Scale 7-10) Last Admin: 12/01/24 11:46 Dose: 25 mg Documented By: ELOISE <Serena Villalba PA-C - Last Filed: 12/02/24 07:37> Labs CBC & Chem 7: 12/01/24 05:14 12/01/24 05:14 <Serena Villalba PA-C - Last Filed: 12/02/24 07:37> Labs: Laboratory Results - last 24 hr 12/01/24 12/01/24 12/01/24 07:59 13:31 16:13 POC Glucose 86 179 H 110 12/01/24 12/02/24 21:10 07:06 POC Glucose 204 H 88 <Serena Villalba PA-C - Last Filed: 12/02/24 07:37> Procedures Date of Service Date of Service: 12/02/24 <Serena Villalba PA-C - Last Filed: 12/02/24 07:37> 12/02/24 <Dennis Alves MD - Last Filed: 12/02/24 11:45> Progress Note: A&P Assessment and plan (1) Enlarged gallbladder: Status: Acute <Serena Villalba PA-C - Last Filed: 12/02/24 07:37> Assessment and Plan: Denies abdominal pain No nausea or vomiting Abdomen is soft, benign and nontender Okay to advance diet as tolerated No surgical intervention necessary Continue current care for medical problems Seen and examined independently <Dennis Alves MD - Last Filed: 12/02/24 11:45> (2) Abdominal pain, acute, left lower quadrant: Status: Acute <Serena Villalba PA-C - Last Filed: 12/02/24 07:37> Assessment and Plan: Abd remains benign- soft, nontender throughout. No evidence of acute cholecystitis. Can advance diet as tolerated. Recommend fiber supplementation and stool softener at discharge for large stool burden. <Serena Villalba PA-C - Last Filed: 12/02/24 07:37> Time Spent With Patient Time: Total time managing care of this patient today ____ minutes. <Serena Villalba PA-C - Last Filed: 12/02/24 07:37> Quality Stroke Does the patient have a stroke diagnosis?: No <Serena Villalba PA-C - Last Filed: 12/02/24 07:37> Reason for No Anti-thrombotic by Day Two: Contraindicated <Serena Villalba PA-C - Last Filed: 12/02/24 07:37> VTE Prior VTE?: No <Serena Villalba PA-C - Last Filed: 12/02/24 07:37> VTE Risk Level:: Medical - moderate - high <Serena Villalba PA-C - Last Filed: 12/02/24 07:37> VTE Device Contraindication: N/A - Device Ordered <Serena Villalba PA-C - Last Filed: 12/02/24 07:37> VTE Drug Contraindication: N/A - Med Ordered <Serena Villalba PA-C - Last Filed: 12/02/24 07:37>
[2024-12-02 11:14] LABS: Glucose, Whole Blood 116 mg/dL (60-115)
--- NOTE | 2024-12-02 15:54 | HO.PM.IMPN ---
Subjective Subjective Date of Service: 12/02/24 Interval History: Acute abdominal pain Review of Systems abd pain seems to be improved no bm yet tolerating diet Physical Exam Exam: Exam: Appearance: Alert.? Oriented cvs: rrr, [id number]. res: clear to auscultation ,no rhonchii or wheezing abd: no rebound or guarding ,nt, bs present. ext pulses present , no cyanosis . neuro: , nonfocal. Vital Signs: Vital Signs: Last Vital Signs Temp 98.1 F 12/02/24 15:29 Pulse 70 12/02/24 15:29 Resp 14 12/02/24 15:29 BP 107/61 12/02/24 15:29 Pulse Ox 97 12/02/24 15:29 O2 Del Method Room Air 12/02/24 15:29 BMI result Body Mass Index 23.3 Objective Data Active Medications Acetaminophen (Acetaminophen 325 Mg Tablet) 650 mg PO Q6H PRN PRN Reason: Pain, Mild 1-3,fever,headache Amlodipine Besylate (Amlodipine Besylate 10 Mg Tablet) 10 mg PO DAILY [facility]; Protocol Last Admin: 12/02/24 08:33 Dose: 10 mg Documented By: RAJANI Apixaban (Apixaban 5 Mg Tablet) 5 mg PO BID [facility] Last Admin: 12/02/24 08:33 Dose: 5 mg Documented By: RAJANI Calcium Carbonate (Calcium Carbonate 750 Mg Tab.Chew) 750 mg PO Q4H PRN PRN Reason: Heartburn Dextrose (Dextrose 50 % 25 Gm/50 Ml Syringe) 25 gm IVPUSH Q15M PRN; Protocol PRN Reason: per Hypoglycemia Standing Ord. Fentanyl (Fentanyl 50 Mcg Patch.Td72) 50 mcg TRANSDERMA Q72H [facility] Last Admin: 12/01/24 10:27 Dose: Not Given Documented By: ELOISE Non-Admin Reason: pt with new patches placed yesterday Fentanyl (Fentanyl 100 Mcg Patch.Td72) 100 mcg TRANSDERMA Q72H [facility] Last Admin: 12/01/24 10:33 Dose: Not Given Documented By: ELOISE Non-Admin Reason: pt placed patches yesterday Glucose (Glucose Gel 15 Gm Gel..Gram.) 15 gm PO Q15M PRN; Protocol PRN Reason: per Hypoglycemia Standing Ord. Sodium Chloride (Ns) 1,000 mls @ 80 mls/hr IVCONT .[id number] [facility] Last Admin: 12/02/24 02:16 Dose: 80 mls/hr Documented By: VIVEK Insulin Human Lispro (Insulin Lispro 100 Unit/Ml 3 Ml Vial) 0 unit SUBCUT QIDACHS [facility]; Protocol Last Admin: 12/02/24 11:18 Dose: Not Given Documented By: RAJANI Non-Admin Reason: No Insulin Coverage Levetiracetam (Levetiracetam 500 Mg Tablet) 500 mg PO BEDTIME [facility] Last Admin: 12/01/24 21:06 Dose: 500 mg Documented By: VIVEK Lisinopril (Lisinopril 10 Mg Tablet) 10 mg PO DAILY [facility]; Protocol Last Admin: 12/02/24 08:33 Dose: 10 mg Documented By: RAJANI Magnesium Hydroxide (Milk Of Magnesia 30 Ml Oral.Susp) 30 ml PO DAILY PRN PRN Reason: Constipation Melatonin (Melatonin 3 Mg Tablet) 6 mg PO BEDTIME PRN PRN Reason: Insomnia Mirtazapine (Mirtazapine 15 Mg Tablet) 15 mg PO DAILY PRN PRN Reason: Sleep Omeprazole (Omeprazole 20 Mg Capsule.Dr) 20 mg PO BID@0630,1630 [facility] Last Admin: 12/02/24 05:56 Dose: 20 mg Documented By: VIVEK Polyethylene Glycol (Polyethylene Glycol 3350 17 Gm Powd.Pack) 17 gm PO DAILY PRN PRN Reason: Constipation Polyethylene Glycol (Polyethylene Glycol 3350 17 Gm Powd.Pack) 17 gm PO DAILY [facility] Last Admin: 12/02/24 08:35 Dose: 17 gm Documented By: RAJANI Sodium Chloride (0.9 % Sodium Chloride Flush 3 Ml Syringe) 3 ml IVFLUSH QSHIFT [facility] Last Admin: 12/02/24 14:43 Dose: Not Given Documented By: RAJANI Non-Admin Reason: IV Running Tramadol HCl (Tramadol Hcl 50 Mg Tablet) 25 mg PO Q6H PRN PRN Reason: Pain, Severe (Pain Scale 7-10) Last Admin: 12/01/24 11:46 Dose: 25 mg Documented By: ELOISE Labs 12/01/24 05:14 12/01/24 05:14 Labs: Laboratory Results - last 24 hr 12/01/24 12/01/24 12/02/24 16:13 21:10 07:06 POC Glucose 110 204 H 88 12/02/24 11:05 POC Glucose 116 H Assessment and Plan (1) Abdominal pain, acute, left lower quadrant: Status: Acute Plan Pt is an 84 yo male with PMH AFIB on Eliquis, CVA, NIDDM, Seizure, hypothyroidism, PPM placement (last checked 11/05), HTN, HLD, GERD, BPH presents to ED BIBA for increasing LLQ abdominal pain. Acute abdominal pain-etiology unknown, ? constipation or others.. resolved CT shows large volume stool throughout colon, Gallbladder is markedly distended measuring 6.1 cm in diameter. There is intrahepatic biliary ductal dilation. US shows Hydropic gallbladder with sludge and possibly impacted stone in neck. No wall thickening or ductal dilation Surgery recommended advancing diet as tolerated. Bowel regimen upon discharge for large stool burden. Started clear liquid diet. Gallbladder neck calculus and CBD dilatation 3.7 cm Surgery recommended advancing diet as tolerated. Does not recommend any surgical intervention GI consult pending LFTs WNL TBILI 1.4 No leukocytosis, fever Large stool burden bowel regimen to be upgraded once eating regular diet/discharged 7 mm pulmonary nodule Incidental finding on CT scan Follow up outpatient Acute urinary retention, secondary to BPH and large stool burden al placed in ED, voiding trial after GI work up completed UA neg continue flomax voiding trial Paroxysmal AFIB on eliquis home medications restarted HTN, variable BPs, restart Norvasc today and Lisinipril . Chropnic back pain fentanyl, PRN tramadol for breakthough pain NIDDM SSI Diabetic diet S/p CVA Pt uses walker Fall prevention No issues with dysphagia DVT prophylaxis: ?Eliquis Code status: DNR DNI ongoing hospitalisation need :abd pain/constipation- abd pain improving ,luxative ,no bm yet. Quality Stroke Does the patient have a stroke diagnosis?: No Reason for No Anti-thrombotic by Day Two: Contraindicated VTE Prior VTE?: No VTE Risk Level:: Medical - moderate - high VTE Device Contraindication: N/A - Device Ordered VTE Drug Contraindication: N/A - Med Ordered
[2024-12-02 16:21] LABS: Glucose, Whole Blood 187 mg/dL (60-115)
[2024-12-02 20:58] LABS: Glucose, Whole Blood 125 mg/dL (60-115)
[2024-12-03 04:00] VITALS: BP 116/58; PULSE 70; RESP 18; TEMP 36; O2SAT 98
[2024-12-03 07:08] VITALS: BP 117/63; PULSE 70; RESP 16; TEMP 36.3; O2SAT 97
[2024-12-03 07:41] LABS: Glucose, Whole Blood 111 mg/dL (60-115)
[2024-12-03 08:03] VITALS: BP 117/63
[2024-12-03] MEDS: Milk of Magnesia 30 ML ORAL.SUSP PO (10:58)
--- NOTE | 2024-12-03 10:58 | MHC.CM.PN ---
Per MD rounds no discharge today. Patient is passing flatus. MOM is ordered. DP home with Son Sulaiman's support. He will provide assist with transport too.
[2024-12-03 11:13] LABS: Glucose, Whole Blood 162 mg/dL (60-115)
[2024-12-03] MEDS: fentaNYL 50 MCG PATCH.TD72 TRANSDERMA (14:18)
[2024-12-03] MEDS: fentaNYL 100 MCG PATCH.TD72 TRANSDERMA (14:19)
[2024-12-03 15:56] VITALS: BP 120/66; PULSE 69; RESP 18; TEMP 36.6; O2SAT 97
[2024-12-03 16:42] LABS: Glucose, Whole Blood 154 mg/dL (60-115)
[2024-12-03] MEDS: 0.9 % Sodium Chloride Flush 3 ML SYRINGE IVFLUSH ×2 (17:02→21:01)
--- NOTE | 2024-12-03 17:04 | HO.PM.IMPN ---
Subjective Subjective Date of Service: 12/03/24 Interval History: abd pain Review of Systems Abdominal pain resolved, tolerating diet, passing passing gases were no BM yet. Review of Systems: Yes all other systems are reviewed and are negative Physical Exam Exam: Exam: Appearance: Alert.? Oriented cvs: rrr, [id number]. res: clear to auscultation ,no rhonchii or wheezing abd: no rebound or guarding ,nt, bs present. ext pulses present , no cyanosis . neuro: , nonfocal. Vital Signs: Vital Signs: Last Vital Signs Temp 97.9 F 12/03/24 15:56 Pulse 69 12/03/24 15:56 Resp 18 12/03/24 15:56 BP 120/66 12/03/24 15:56 Pulse Ox 97 12/03/24 15:56 O2 Del Method Room Air 12/03/24 15:56 BMI result Body Mass Index 23.3 Objective Data Active Medications Acetaminophen (Acetaminophen 325 Mg Tablet) 650 mg PO Q6H PRN PRN Reason: Pain, Mild 1-3,fever,headache Amlodipine Besylate (Amlodipine Besylate 10 Mg Tablet) 10 mg PO DAILY [facility]; Protocol Last Admin: 12/03/24 08:03 Dose: 10 mg Documented By: RAJANI Apixaban (Apixaban 5 Mg Tablet) 5 mg PO BID [facility] Last Admin: 12/03/24 08:02 Dose: 5 mg Documented By: RAJANI Calcium Carbonate (Calcium Carbonate 750 Mg Tab.Chew) 750 mg PO Q4H PRN PRN Reason: Heartburn Dextrose (Dextrose 50 % 25 Gm/50 Ml Syringe) 25 gm IVPUSH Q15M PRN; Protocol PRN Reason: per Hypoglycemia Standing Ord. Fentanyl (Fentanyl 100 Mcg Patch.Td72) 100 mcg TRANSDERMA Q72H [facility] Last Admin: 12/03/24 14:19 Dose: 100 mcg Documented By: RAJANI Fentanyl (Fentanyl 50 Mcg Patch.Td72) 50 mcg TRANSDERMA Q72H [facility] Last Admin: 12/03/24 14:18 Dose: 50 mcg Documented By: RAJANI Glucose (Glucose Gel 15 Gm Gel..Gram.) 15 gm PO Q15M PRN; Protocol PRN Reason: per Hypoglycemia Standing Ord. Insulin Human Lispro (Insulin Lispro 100 Unit/Ml 3 Ml Vial) 0 unit SUBCUT QIDACHS [facility]; Protocol Last Admin: 12/03/24 11:34 Dose: 2 unit Documented By: RAJANI Levetiracetam (Levetiracetam 500 Mg Tablet) 500 mg PO BEDTIME [facility] Last Admin: 12/02/24 21:33 Dose: 500 mg Documented By: YULIA Lisinopril (Lisinopril 10 Mg Tablet) 10 mg PO DAILY [facility]; Protocol Last Admin: 12/03/24 08:03 Dose: 10 mg Documented By: RAAJNI Magnesium Hydroxide (Milk Of Magnesia 30 Ml Oral.Susp) 30 ml PO DAILY PRN PRN Reason: Constipation Last Admin: 12/03/24 10:58 Dose: 30 ml Documented By: RAJANI Melatonin (Melatonin 3 Mg Tablet) 6 mg PO BEDTIME PRN PRN Reason: Insomnia Last Admin: 12/03/24 00:38 Dose: 6 mg Documented By: YULIA Mirtazapine (Mirtazapine 15 Mg Tablet) 15 mg PO DAILY PRN PRN Reason: Sleep Omeprazole (Omeprazole 20 Mg Capsule.Dr) 20 mg PO BID@0630,1630 [facility] Last Admin: 12/03/24 06:09 Dose: 20 mg Documented By: YULIA Polyethylene Glycol (Polyethylene Glycol 3350 17 Gm Powd.Pack) 17 gm PO DAILY PRN PRN Reason: Constipation Polyethylene Glycol (Polyethylene Glycol 3350 17 Gm Powd.Pack) 17 gm PO BID [facility] Last Admin: 12/03/24 08:03 Dose: 17 gm Documented By: RAJANI Sodium Biphosphate/Sodium Phosphate (Sodium Phosphate,Blount-Dibasic 133 Ml Enema) 133 ml [place] ONCE PRN PRN Reason: Constipation Sodium Chloride (0.9 % Sodium Chloride Flush 3 Ml Syringe) 3 ml IVFLUSH QSHIFT [facility] Last Admin: 12/03/24 07:00 Dose: Not Given Documented By: RAJANI Non-Admin Reason: IV Running Tramadol HCl (Tramadol Hcl 50 Mg Tablet) 25 mg PO Q6H PRN PRN Reason: Pain, Severe (Pain Scale 7-10) Last Admin: 12/01/24 11:46 Dose: 25 mg Documented By: ELOISE Labs 12/01/24 05:14 12/01/24 05:14 Labs: Laboratory Results - last 24 hr 12/02/24 12/03/24 12/03/24 20:54 07:11 10:59 POC Glucose 125 H 111 162 H 12/03/24 16:38 POC Glucose 154 H Assessment and Plan (1) Abdominal pain, acute, left lower quadrant: Status: Acute Plan Pt is an 84 yo male with PMH AFIB on Eliquis, CVA, NIDDM, Seizure, hypothyroidism, PPM placement (last checked 11/05), HTN, HLD, GERD, BPH presents to ED BIBA for increasing LLQ abdominal pain. Acute abdominal pain-etiology unknown, ? constipation or others.. resolved CT shows large volume stool throughout colon, Gallbladder is markedly distended measuring 6.1 cm in diameter. There is intrahepatic biliary ductal dilation. US shows Hydropic gallbladder with sludge and possibly impacted stone in neck. No wall thickening or ductal dilation Surgery recommended advancing diet as tolerated. Bowel regimen upon discharge for large stool burden. Started clear liquid diet. Gallbladder neck calculus and CBD dilatation 3.7 cm Surgery recommended advancing diet as tolerated. Does not recommend any surgical intervention GI consult pending LFTs WNL TBILI 1.4 No leukocytosis, fever Large stool burden Abdominal pain resolved, tolerating diet, passing gases but no BM yet, His bowel regimen upgraded-added additional lactulose, also offered enema but patient is currently refusing 7 mm pulmonary nodule Incidental finding on CT scan Follow up outpatient Acute urinary retention, secondary to BPH and large stool burden al placed in ED, voiding trial after GI work up completed UA neg continue flomax voiding trial Paroxysmal AFIB on eliquis home medications restarted HTN, variable BPs, restart Norvasc today and Lisinipril . Chropnic back pain fentanyl, PRN tramadol for breakthough pain NIDDM SSI Diabetic diet S/p CVA Pt uses walker Fall prevention No issues with dysphagia DVT prophylaxis: ?Eliquis Code status: DNR DNI ongoing hospitalisation need :abd pain/constipation- abd pain improving ,luxative ,no bm yet. Quality Stroke Does the patient have a stroke diagnosis?: No Reason for No Anti-thrombotic by Day Two: Contraindicated VTE Prior VTE?: No VTE Risk Level:: Medical - moderate - high VTE Device Contraindication: N/A - Device Ordered VTE Drug Contraindication: N/A - Med Ordered
[2024-12-03 19:31] VITALS: BP 132/65; PULSE 69; RESP 18; TEMP 37; O2SAT 98
[2024-12-03 20:34] LABS: Glucose, Whole Blood 119 mg/dL (60-115)
[2024-12-04 03:07] VITALS: BP 119/63; PULSE 70; RESP 18; TEMP 36.7; O2SAT 99
[2024-12-04 07:29] LABS: Glucose, Whole Blood 118 mg/dL (60-115)
[2024-12-04 07:43] VITALS: BP 117/69; PULSE 70; RESP 17; TEMP 37.1; O2SAT 97
[2024-12-04] MEDS: 0.9 % Sodium Chloride Flush 3 ML SYRINGE IVFLUSH (08:45)
--- NOTE | 2024-12-04 12:01 | PM.DS ---
DS: Providers Provider Date of Service: 12/04/24 Date of admission: 12/01/24 01:38 Date of discharge: 12/04/24 Primary care physician: Erik Perkins MD Admitting clinician: Teresa Romero Attending physician on admission: Teresa Romero Consults: 12/01/24 01:42 Consult to Gastroenterology Routine Consulting Provider: Jeffry Lundberg Reason for consultation: Hydropic gallbladder with sludge and possibly impacted stone in neck Has provider been notified: No 12/01/24 07:59 Consult to General Surgery Routine Consulting Provider: [facility] Reason for consultation: Galstones ? choledocholithiasis DS: Diagnosis Discharge Diagnosis (1) Abdominal pain, acute, left lower quadrant: Status: Acute DS: Summary Hospital Course Hospital Course: HPI:84 yo male with PMH AFIB on Eliquis, CVA, NIDDM, Seizure, hypothyroidism, PPM placement (last checked 11/05), HTN, HLD, GERD, BPH presents to ED BIBA for increasing LLQ abdominal pain. Pt states pain started hours prior to calling 911 and pain was resolved by the time pt arrived (unsure if pt was medicated). CT scan then US completed in the ED and fund CBD dilitation with possible impacted stone in neck of gallbladder. LFT's were WNL. TBILI 1.4, baseline 1.1. Pt currently NPO, complaining of no pain or N/V. ED provider did not contact GI prior to admission and reviewed with hospitalist by phone (pt accepted with plan to consult GI in the AM). In additon, CT notes fecal burden throughout. Pt states last normal BM was 2 days prior. Since then, pt has had liquid stool. Pt also found to have urinary retention of 300 ccs with bladder scan and al was placed by ED provider. Urine noted to be cloudy. Al was placed, balloon inflated and pt experienced no discomfort with placement. Pt currently homebound, lives with son and states he generally cannt sit still. Pt states he legs are restless but pt has not hx of RLS. Pt denies any falls or injuries in the last 2 months. Hospital course: 84 yo male with PMH AFIB on Eliquis, CVA, NIDDM, Seizure, hypothyroidism, PPM placement (last checked 11/05), HTN, HLD, GERD, BPH presents to ED BIBA for increasing LLQ abdominal pain. Acute abdominal pain-etiology unknown, ? constipation.. resolved CT shows large volume stool throughout colon, Gallbladder is markedly distended measuring 6.1 cm in diameter. There is intrahepatic biliary ductal dilation. US shows Hydropic gallbladder with sludge and possibly impacted stone in neck. No wall thickening or ductal dilation Surgery recommended advancing diet as tolerated. Bowel regimen upon discharge for large stool burden: Patient received bowel regimen, diet advanced: Patient abdominal pain seems to be improving, passing bowel with laxative, tolerating diet. Currently asymptomatic. Further management outpatient follow-up with surgery. LFTs :TBILI 1.5(ch elevated since 2019),other lft's seems fine No leukocytosis, fever moniter cmp outpatient . Large stool burden Abdominal pain resolved, tolerating diet, passing bm with luxative and enema. Of note patient says that he has BM every 4-5 days(his usual bowel habit) Seen by GI Dr. Lundberg: Suspected transient abdominal pain secondary to constipation with intestinal spasm.Maintain on a daily bowel regimen with Miralax and fiber supplements so as to avoid a recurrence of his symptoms. I don't think any further studies are required unless the situation changes. I agree with the surgical consult to hold off on gallbladder surgery unless he becomes definitvely symptomatic. 7 mm pulmonary nodule Incidental finding on CT scan Follow up outpatient Acute urinary retention -possible functional sec to constipation ,also has bph on ct abd. al placed in ED, voiding trial after GI work up completed. will add flomax ,off al plan: maintain on a daily bowel regimen with Miralax and fiber supplements so as to avoid a recurrence of his symptoms. I don't think any further studies are required unless the situation changes. high fiber diet,hydration encouraged. moniter cmp outpatient. follow up with pcp,consider outpatient Gi /surgery followup if needed. Above management discussed with the patient detail length he understand and in agreement with the above plan, time spent 40 minute, all question answered, staff was present during conversation. Time Attestation Total time managing care of this patient today: 40 mintues. Discharge Coordination Time (in mins): 40 min Quality: Safe Use of Opioids Does Pt have an Active Cancer Diagnosis on the Problem List?: No Quality: Stroke Does the patient have a stroke diagnosis?: No Physical Exam Exam: Exam: Appearance: Alert.? Oriented cvs: rrr, [id number]. res: clear to auscultation ,no rhonchii or wheezing abd: no rebound or guarding ,nt, bs present. ext pulses present , no cyanosis . neuro: , nonfocal. Vital Signs: Vital Signs: Last Vital Signs Temp 98.7 F 12/04/24 07:43 Pulse 70 12/04/24 07:43 Resp 17 12/04/24 07:43 BP 117/69 12/04/24 07:43 Pulse Ox 97 12/04/24 07:43 O2 Del Method Room Air 12/04/24 07:43 BMI result Body Mass Index 23.3 DS: Data Data Completed and Pending Completed studies during hospitalization [Text1]: Procedures Insertion of Pacemaker Lead into Right Atrium, Percutaneous Approach (10/14/23) Insertion of Pacemaker Lead into Right Ventricle, Percutaneous Approach (10/14/23) Insertion of Pacemaker, Dual Chamber into Chest Subcutaneous Tissue and Fascia, Open Approach (10/14/23) Labs on day of discharge: Laboratory Results - last 24 hr 12/03/24 12/03/24 12/04/24 16:38 20:30 07:21 POC Glucose 154 H 119 H 118 H Imaging Chest x-ray: My impression: ct abd: 1. Gallbladder is markedly distended measuring 6.1 cm in diameter. There is intrahepatic biliary ductal dilation. Correlation with right upper quadrant tenderness is recommended. Right upper quadrant ultrasound is recommended for further evaluation if there is clinical concern for acute cholecystitis. 2. Large volume of stool throughout the colon. 3. There is a left lower lobe 7 mm pulmonary nodule. Chest CT is recommended on an outpatient/ nonemergent basis. abd us: Impression: Hydropic gallbladder with sludge and possibly impacted stone in neck No wall thickening or ductal dilation Discharge Plan Discharge Anticipated Discharge Date/Time: 12/04/24 11:57 Patient Disposition: Home Health Service Discharge Diagnosis: abd pain, constipation Referrals: Erik Perkins MD [Primary Care Provider, Internal Medicine] - 1 Week Discharge Medications: New polyethylene glycol 3350 17 gram Powder In Packet 17 g PO BID PRN (Reason: constipation) Qty: 120 0RF magnesium hydroxide [Milk of Magnesia] 400 mg/5 mL Suspension 30 ml PO DAILY PRN (Reason: Constipation) Qty: 200 0RF docusate sodium 100 mg Capsule 100 mg PO BID Qty: 60 0RF tamsulosin [Flomax] 0.4 mg capsule 0.4 mg PO BEDTIME Qty: 60 0RF Continued amlodipine 10 mg tablet 10 mg PO DAILY lisinopril 10 mg tablet 10 mg PO DAILY omeprazole 20 mg Capsule,Delayed Release(Dr/Ec) 20 mg PO BID@0630,1630 Qty: 0 0RF metformin 500 mg tablet 500 mg PO BIDWMEAL Qty: 60 0RF Eliquis 5 mg Tablet 5 mg PO BID Qty: 0 0RF levetiracetam 500 mg tablet 500 mg PO DAILY mirtazapine 15 mg tablet 15 mg PO DAILY PRN (Reason: Sleep) fentanyl 50 mcg/hr patch 72 hour 50 mcg topical Q72H fentanyl 100 mcg/hr patch 72 hour 100 mcg topical Q72H Discharge Orders: Discharge Order (Routine); Ordered 12/04/24 Ordered By: Teresa Romero Diet: Advance to usual diet Activity on Discharge: As tolerated Stand Alone Forms: Patient Portal Discharge page Print Language: Pashto Other Ambulatory Orders: Comprehensive Met. Panel (Routine) Timeframe: 1 Week Facility: [facility] - Location: Laboratory Ordered By: Teresa Romero Care Plan Goals: high fiber diet and luxtative. Follow-up out patiently with GI and surgery. Health Concerns: As above. Plan of Treatment: As above. Assessment: As above.
[2024-12-04 12:39] LABS: Glucose, Whole Blood 275 mg/dL (60-115)
--- NOTE | 2024-12-04 13:10 | MHC.CM.PN ---
PT TO DC HOME TODAY WT [facility] REFERRALS OUT FAMILY TO TRANSPORT
--- NOTE | 2024-12-04 13:24 | W.MHC.F2F ---
Service Date Service Date: 12/04/24 Encounter Date of encounter: 12/04/24 Encounter: Abdominal pain, constipation Reasons for Services Signs and symptoms assessed: Any new abdominal pain or nausea vomiting fever or new symptoms Reason for custodial: medication management, medication treatment and teach disease management MD Overseeing Care: Erik Perkins Homebound: Leaving the home is medically contraindicated at this time without the asist of a device and/or another person due th the listed conditions above and below. Reason homebound: weakness related to hospital stay Homebound supporting statement: Patient is generalised weak post hospitlisation and need help with going to appointments and labs draws as well as medical management/ Certification: Based on the above findings, I certify that this patient is confined to the home and needs intermittent custodial care, physical therapy and/or speech therapy, or continues to need occupational therapy. The patient is under my care, and I have initiated the establishment of the plan of care. The patient will be followed by a physician who will periodically review the plan of care. Time Spent With Patient Time: Total time managing care of this patient today ____ minutes.
== END 2024-12-04 14:14 | disposition home health service (06) | DRG 445 ==
LOC: HO.ED 12-01 02:11 → HO.EDOVER 12-01 02:20 → HO.S3 12-01 07:34
PROVIDERS: Internal Medicine; Physician Assistant Medical; Admitting Provider Nurse Practitioner Family; Emergency Provider Emergency Medicine; PCP Internal Medicine; Visit Provider Internal Medicine
DX: K80.21 Calculus of gallbladder without cholecystitis with obstruction (principal); K82.1 Hydrops of gallbladder; R91.1 Solitary pulmonary nodule; M54.9 Dorsalgia, unspecified; G89.29 Other chronic pain; N40.1 Benign prostatic hyperplasia with lower urinary tract symptoms; Z66 Do not resuscitate; I10 Essential (primary) hypertension; K59.00 Constipation, unspecified; E11.9 Type 2 diabetes mellitus without complications; R33.8 Other retention of urine; I48.0 Paroxysmal atrial fibrillation; Z20.822 Contact with and (suspected) exposure to COVID-19; Z86.73 Personal history of transient ischemic attack (TIA), and cerebral infarction without residual deficits; Z87.891 Personal history of nicotine dependence; Z79.01 Long term (current) use of anticoagulants; Z79.899 Other long term (current) drug therapy
CPT/HCPCS: 36415; 74177; 76705; 80053; 80061; 81001; 82947; 83605; 83690; 83735; 85025; 85610; 87637; 97116; 97162; 99285; J0131; Q9967

== ENCOUNTER → 2024-11-30 21:56 | Outpatient (BNV) | payer MEDICARE, SELFPAY | PROVIDERS: Emergency Provider Emergency Medicine; PCP Internal Medicine; Visit Provider Family Medicine | DX: K82.8 Other specified diseases of gallbladder (principal); K56.41 Fecal impaction; R91.1 Solitary pulmonary nodule; R10.11 Right upper quadrant pain | CPT/HCPCS: 74177 ==

== ENCOUNTER → 2024-12-01 01:38 | Outpatient (BNV) | payer MEDICARE, SELFPAY | PROVIDERS: Admitting Provider Nurse Practitioner Family; Emergency Provider Emergency Medicine; PCP Internal Medicine; Visit Provider Physician Assistant Surgical | DX: K82.8 Other specified diseases of gallbladder (principal); R10.32 Left lower quadrant pain | CPT/HCPCS: 99222; 99232 ==

== ENCOUNTER → 2024-12-01 01:38 | Outpatient (BNV) | payer MEDICARE, SELFPAY | PROVIDERS: Admitting Provider Nurse Practitioner Family; Emergency Provider Emergency Medicine; PCP Internal Medicine; Visit Provider Internal Medicine | DX: R10.32 Left lower quadrant pain (principal) | CPT/HCPCS: 99223; 99231; 99239; 99499; G0180 ==

== ENCOUNTER 2024-12-04 19:04 | Emergency (ER) | payer MEDICARE, SELFPAY ==
--- NOTE | 2024-12-04 | ECG_ITS ---
Test Reason : TREMORS Blood Pressure : */* mmHG Vent. Rate : 71 BPM Atrial Rate : * BPM P-R Int : * ms QRS Dur : 70 ms QT Int : 418 ms P-R-T Axes : * 147 -33 degrees QTcB Int : 454 ms Suspect limb lead reversal, interpretation assumes no reversal Atrial fibrillation with frequent ventricular-paced complexes Low voltage QRS Lateral infarct , age undetermined Abnormal ECG When compared with ECG of 13-Oct-2023 23:47, Electronic ventricular pacemaker has replaced Atrial fibrillation Vent. rate has decreased by 42 bpm Referred By: Generic ED Physician Electronically Signed By: Eugenio Adams
--- NOTE | ~2024-12-04 | XR_ITS ---
CLINICAL HISTORY: pain , mid humerus 2 view right humerus Comparison: None provided Findings: The bones are osteopenic. No radiopaque foreign body. Small area of periosteal new bone formation is present at the proximal humeral diaphysis. IMPRESSION: 1. No fracture or acute osseous abnormality. 2. Small area of periosteal new bone formation in the proximal humeral diaphysis of unclear etiology. Follow-up nonemergent cross-sectional imaging may be helpful for further characterization if clinically indicated. This document has been electronically signed by: Demarcus Marroquin MD, PHD on 12/05/2024 01:11:04
--- NOTE | ~2024-12-04 | CT_ITS ---
CLINICAL HISTORY: prior cva with acute R tremor. CT head without contrast Comparison: CT/REG/SR - CT HEAD/BRAIN WO IV CON - 10/18/23 19:19 EDT Findings: No intra-axial mass, midline shift, hydrocephalus, or acute hemorrhage. Nonspecific white matter hypodensity is present with moderate volume loss. Polypoid soft tissue density in the left sphenoid sinus with sclerotic wall thickening. Remaining paranasal sinuses are clear. Mastoid air cells are clear. The orbits are within normal limits. There is no acute fracture. IMPRESSION: 1. No acute intracranial findings. This document has been electronically signed by: Demarcus Marroquin MD, PHD on 12/05/2024 00:05:45
--- NOTE | ~2024-12-04 | XR_ITS ---
CLINICAL HISTORY: tender, fall 2 view right shoulder Comparison: None provided Findings: Bones are osteopenic. No radiopaque foreign body. Moderate glenohumeral osteoarthritic changes. No acute osseous abnormality. Small area of periosteal new bone formation of the proximal humeral diaphysis of unclear etiology. IMPRESSION: 1. No acute osseous abnormality. 2. Small area of periosteal new bone formation of the proximal humeral diaphysis of unclear etiology. This document has been electronically signed by: Demarcus Marroquin MD, PHD on 12/05/2024 01:12:34
[2024-12-04 19:13] VITALS: BP 130/80; BP 153/79; PULSE 85; PULSE 91; RESP 20; TEMP 36.7; O2SAT 97; BMI 22.0
--- NOTE | 2024-12-04 19:49 | MHC.EDTECH ---
unable to obtain EKG, patient's tremors were too strong to get a clean read. rn aware
[2024-12-04 20:14] VITALS: BP 153/79; PULSE 91; RESP 20; TEMP 36.7; O2SAT 97
--- NOTE | 2024-12-04 21:09 | PC.NURSE ---
Pt aox3, presents for right arm tremors/muscle spasms. Family at bedside reports noticing new onset right eye drooping since 1800 which is not pts baseline. Speech is clear and appropriate. VSS. No acute distress noted. Pt expresses a desire to urinate with no urine output. Pt to be bladder scanned. Family reports pt had a al cath in place during recent hospital admission. Provider made aware.
--- NOTE | 2024-12-04 21:33 | ED_ITS ---
HPI - General Adult General Chief complaint: General Medical Stated complaint: Right arm pain, Tremors Time Seen by Provider: 12/04/24 21:04 History of Present Illness ED Provider: EVANGELINA HPI narrative: 84 M here for brief resolved R arm pain and tremor which is new. Hx of CVA among multiple comorbid med conditions. Family thought maybe his eye was drooped slightly on R side, and report sublet drooping to me which I do not note objectively. no motor deficits Patient's recent admission when he was released this afternoon was for GI symptoms including constipation he received enema. He also had urologic symptoms and briefly had a Childs in. You once again feels he is unable to pass urine Related Data Home Medications ?Medication ?Instructions ?Recorded ?Confirmed amlodipine 10 mg tablet 10 mg PO DAILY 10/14/2311/12 lisinopril 10 mg tablet 10 mg PO DAILY 10/14/2311/12 fentanyl 100 mcg/hr transdermal 100 mcg topical Q72H 0 12/01/24 12/01/24 patch fentanyl 50 mcg/hr transdermal 50 mcg topical Q72H 12/01/24 patch levetiracetam 500 mg tablet 500 mg PO DAILY 12/01/24 0 12/01/24 mirtazapine 15 mg tablet 15 mg PO DAILY PRN Sleep 12/01/24 Previous Rx's ?Medication ?Instructions ?Recorded metformin 500 mg tablet 500 mg PO BIDWMEAL #60 tabs 10/18/23 omeprazole 20 mg capsule,delayed 20 mg PO BID@0630,163 0 #0 caps 10/18/23 release apixaban 5 mg tablet (Eliquis) 5 mg PO BID #0 tabs 01/04 docusate sodium 100 mg capsule 100 mg PO BID #60 caps 12/04/24 magnesium hydroxide 400 mg/5 mL 30 ml PO DAILY PRN Con stipation 12/04/24 oral suspension (Milk of Magnesia) #200 mL polyethylene glycol 3350 17 gram 17 g PO BID PRN const ipation #120 12/04/24 oral powder packet ea tamsulosin 0.4 mg capsule (Flomax) 0.4 mg PO BEDTIME # 60 caps 12/04/24 Allergies Allergy/AdvReac Type Severity Reaction Status Date / Time Penicillins Allergy Intermediate Rash Verified 12/04/24 19:19 PMFSH Past Medical History Medical History (Updated 12/05/24 @ 01:49 by Eric Hurst MD) Elevated bilirubin Fall BPH (benign prostatic hyperplasia) Stroke Afib Diabetes Essential hypertension History of pulmonary embolism Gallbladder sludge Surgical History Previous back surgery Family History Family History Father Heart attack Social History Social History Household Members: Family Household Members Other:: Son Housing: Condominium Do you presently have visiting nurse or other home services: No Alcohol intake: never Comment: IV Ofirmev infusing Patient Tobacco Use Status: Former Tobacco user Tobacco use type: Cigarette Years Smoked: 30 Second Hand Smoke Exposure: No Advance Directives Date on File: 10/13/23 service: No Physical Exam ED Exam Exam: GENERAL: Well appearing. No apparent distress. Alert. HEAD/NECK: Normal to inspection. Neck supple. No cervical lymphadenopathy. EYES: Normal to inspection. Sclera non-icteric. ENMT: External nose normal. RESPIRATORY: Respiratory effort normal. Lungs clear to auscultation bilaterally. CARDIOVASCULAR: Regular rate. Normal rhythm. No murmur. No rubs. GI: Soft, non-tender, non-distended. No rebound or guarding. No masses palpable. No hepatosplenomegaly. SKIN: No jaundice. NEUROLOGICAL: Alert. PSYCHIATRIC: Alert. Appearance appropriate for situation. Attitude cooperative. OTHER: Comprehensive Neuro exam: Face symmetric, tongue midline, strong symmetric eye closure, pupils symmetric and reactive to light, intact sensation to the face throughout, intact strong face deviation and shoulder shrug. No noted droop. Pupils 2-3 mm symmetric and reactive. Sensation intact light touch throughout the body and the face. Sensation intact to light touch throughout. Gait not assessed. * 5 out of 5 strength in bilateral upper extremities, 5 and 5 strength in lower extremities * * Occasional question intention tremor noted in the right side with quick cessation. No tremor on reach with the right upper extremity. Vital Signs: Vital Signs - 24 hr 12/04/24 19:13 12/04/24 20:14 12/04/24 23:10 Temperature 98.0 F 98.0 F 97.4 F Pulse Rate 91 91 70 Respiratory Rate 20 20 12 Blood Pressure 153/79 H 153/79 H 117/65 Pulse Oximetry 97 97 97 Oxygen Delivery Method Room Air Room Air Room Air 12/05/24 01:28 12/05/24 03:41 Temperature 97.4 F 97.4 F Pulse Rate 70 70 Respiratory Rate 15 15 Blood Pressure 117/64 117/64 Pulse Oximetry 97 97 Oxygen Delivery Method Room Air Room Air BMI result Body Mass Index 22.0 Medical Decision Making Medical Decision Making [facility] Narrative: Medical Decision Makin-year-old male with recent hospitalization extensive medical history mainly brought back for a brief episode of right-sided pain mostly in the humerus/shoulder region without fall or trauma recently he says he fell few weeks ago. No trauma or focal deficits noted except for family feeling there maybe a subtle right eyelid or eye drooping this is not noted objectively nor is there any other objective motor or sensory deficits or other suggestion of acute stroke on initial NIH stroke scale/screening exam. Patient does have subtle atypical tremor in the setting of history of CVA reasonable to get noncontrast CT as he is anticoagulated. No new GI symptoms. Incidentally noted to be retaining urine 300 cc unable to void himself. __ 01:45: I have reviewed the results of all the patient's imaging studies lab work and reassessed him. He has been comfortable in the emergency department put out 800 cc of clear urine. He has not had any episodes of severe pain like he did before arrival. No other son is at the bedside waiting with the patient. CT head without acute actionable findings. X-ray shoulder and humerus without acute actionable traumatic or other findings. Labs reassuring no electrolyte derangements. There was no clear explanation for the patient's abrupt right upper extremity discomfort and he is neurovascularly intact. Although earlier there was some subtle tremor noted there was no objective motor deficits sensory deficits or other findings on my examination to suggest acute CVA despite the patient's medical history. Patient amenable and eager to go home if all of his testing was clear we will leave a Childs and have him follow up with Urology Preliminary Favored Differential Diagnosis: Tremor, electrolyte derangement, less likely acute intracranial process mass or ICH unlikely, among additional considered etiologies Testing Interpreted Independently: X-ray shoulder and humerus without acute traumatic injury dislocation or other acute process Radiology or Lab testing Results Reviewed: Not Applicable Consults: Not Applicable Independent Historians/External Chart Reviews: Not Applicable Social Determinants of Health Impacting MDM/Planning: Not Applicable Lab Data 12/04/24 22:28 12/04/24 22:28 Labs: Lab Results 12/04/24 Range/Units 22:28 WBC 6.9 (4.8-10.8) X10*3/uL RBC 4.12 L (4.60-5.80) X10*6/uL Hgb 12.6 L (14.0-18.0) g/dl Hct 36.2 L (42.0-52.0) % MCV 87.9 (80.0-98.0) fL MCH 30.6 (27.0-33.0) pg MCHC 34.8 (31.0-36.0) g/dl RDW 14.2 (11.0-16.0) % Plt Count 187 (160-400) X10*3/uL MPV 9.6 (9.4-12.4) fL Immature Gran % (Auto) 0.3 (0.0-0.4) % Neut % (Auto) 66.9 (45-73) % Lymph % (Auto) 26.1 (20-40) % [place] % (Auto) 6.0 (2-11) % Eos % (Auto) 0.4 (0-4) % Baso % (Auto) 0.3 (0-2) % Lymph # (Auto) 1.8 (1.2-4.9) X10*3/uL [place] # (Auto) 0.4 (0.1-1.2) X10*3/uL Eos # (Auto) 0.0 (0.0-0.4) X10*3/uL Baso # (Auto) 0.0 (0.0-0.2) X10*3/uL Abs Immat Gran (auto) 0.02 (0.00-0.03) X10*3/uL Absolute Neuts (auto) 4.6 (2.0-8.3) x10*3/uL Absolute Nucleated RBC 0.000 (0.0-0.012) X10*3/uL Nucleated RBC % (auto) 0.0 (0.0-0.2) /100WBC Sodium 139 (135-145) mmol/L Potassium 4.1 (3.3-5.1) mmol/L Chloride 108 (96-108) mmol/L Carbon Dioxide 22 (22-29) mmol/L Anion Gap 13 (12-20) BUN 13 (9-16) mg/dL Creatinine 0.72 (0.5-1.4) mg/dL Estim Creat Clear Calc 62.9 Estimated GFR > 60 Random Glucose 139 H (60-115) mg/dL Calcium 9.1 D (8.4-10.2) mg/dL Total Bilirubin 1.8 H (0.0-1.0) mg/dL AST 19 (5-37) U/L ALT 8 (0-40) U/L Alkaline Phosphatase 70 (39-117) U/L Total Protein 6.3 L (6.5-8.0) g/dL Albumin 4.3 (3.5-5.0) g/dL Urine Color Yellow Urine Appearance Clear Urine pH 6.5 (5.0-9.0) Ur Specific [place] 1.010 (1.005-1.025) Urine Protein Trace (Neg-Trace) mg/dL Urine Glucose (UA) Negative (Negative) mg/dL Urine Ketones Trace (Negative) mg/dL Urine Blood Small (1+) H (Negative) Urine Nitrite Negative (Negative) Ur Leukocyte Esterase Negative (Negative) Urine RBC 6-10 H (0-2) /HPF Urine WBC 0-5 (0-5) /HPF Ur Squamous Epith Cells 0-2 (0-2) /HPF Urine Bacteria None Seen (None Seen) Hyaline Casts 0-2 (0-2) /LPF Discharge Plan Discharge Clinical Impression: Tremor, Arm pain, Acute urinary retention Patient Disposition: Home, Self-Care Instructions: Urinary Retention in Men (ED), Arm Pain (ED), Tremors (ED) Additional Instructions: _ DISCHARGE DIAGNOSES: Arm pain resolved and of unclear cause reassuring x-rays of the shoulder and humerus Tremor of the right arm associated with the pain unclear cause No objective findings of motor weakness facial drooping. CT of the brain normal and reassuring Urinary retention: Likely BPH Childs placed HISTORY OF PRESENTATION: ?Abrupt severe pain in the right posterior upper extremity , tremor. Family thought perhaps that was subtle drooping around the eye. Retention of urine EMERGENCY DEPARTMENT COURSE,TESTS, TREATMENTS: While in the ED today a Childs catheter was placed to ensure that your bladder can drained. X-ray of your shoulder and humerus done without acute bony injuries, CT brain done without acute findings blood work was reassuring DISCHARGE MEDICATIONS: ?[We have made no changes to your regular medication regimen] FOLLOW-UP: ?Call your primary or general physician soon as possible to discuss your symptoms, your ED visit and to discuss follow up plans INSTRUCTIONS ?& RETURN PRECAUTIONS: If any symptoms change first call your primary physician, if it is after-hours your primary doctors office should have a provider investment consultant you can speak with. If the symptoms are severe or very concerning to you then call 911 or return to the ED. Eric Hurst MD Emergency Physician [facility] Prescriptions: No Action amlodipine 10 mg tablet 10 mg PO DAILY lisinopril 10 mg tablet 10 mg PO DAILY omeprazole 20 mg Capsule,Delayed Release(Dr/Ec) 20 mg PO BID@0630,1630 Qty: 0 0RF metformin 500 mg tablet 500 mg PO BIDWMEAL Qty: 60 0RF Eliquis 5 mg Tablet 5 mg PO BID Qty: 0 0RF levetiracetam 500 mg tablet 500 mg PO DAILY mirtazapine 15 mg tablet 15 mg PO DAILY PRN (Reason: Sleep) fentanyl 50 mcg/hr patch 72 hour 50 mcg topical Q72H fentanyl 100 mcg/hr patch 72 hour 100 mcg topical Q72H polyethylene glycol 3350 17 gram Powder In Packet 17 g PO BID PRN (Reason: constipation) Qty: 120 0RF magnesium hydroxide [Milk of Magnesia] 400 mg/5 mL Suspension 30 ml PO DAILY PRN (Reason: Constipation) Qty: 200 0RF docusate sodium 100 mg Capsule 100 mg PO BID Qty: 60 0RF tamsulosin [Flomax] 0.4 mg capsule 0.4 mg PO BEDTIME Qty: 60 0RF Referrals: [facility] [Provider Group, Urology] Interventions: ED Discharge Assessment Last Done: 12/05/24 03:41 Discharge Date/Time: 12/05/24 03:41 Print Language: Turkish
[2024-12-04 22:32] LABS: MANUAL DIFF FLAG NO
[2024-12-04 22:34] LABS: Hematocrit 36.2 % (42.0-52.0); Hemoglobin 12.6 g/dl (14.0-18.0); Imm Gran Abs Auto 0.02 X10*3/uL (0.00-0.03); Imm Gran Pct Auto 0.3 % (0.0-0.4); Lymphocytes Absolute Auto 1.8 X10*3/uL (1.2-4.9); Mean Corpuscular HGB Conc 34.8 g/dl (31.0-36.0); Mean Corpuscular Hemoglobin 30.6 pg (27.0-33.0); Mean Corpuscular Volume 87.9 fL (80.0-98.0); NRBC Abs Auto 0.000 X10*3/uL (0.0-0.012); NRBC Pct Auto 0.0 /100WBC (0.0-0.2); Platelet Count 187 X10*3/uL (160-400); Red Blood Count 4.12 X10*6/uL (4.60-5.80); White Blood Count 6.9 X10*3/uL (4.8-10.8)
[2024-12-04 22:35] LABS: Appearance Urine Clear; Glucose Urine UA Negative (Negative); PH 6.5 (5.0-9.0); Specific Gravity - Urine 1.010 (1.005-1.025); UMIC TRIGGER UACC YES
--- OUTSIDE RECORDS SUMMARY | 2024-12-04 22:43 | XMS_ITS | Clinical Summary ---
Author Organization [facility] Address [address] [place] [address] Phone Care Team Providers Care Wire Fence Builder Name Role Phone SuzyErik mojica Primary Care Provider [phone] Gregorio Erik Salomon Unavailable Ander Cruz MD Unavailable [phone] Allergies Active Allergy Reactions Criticality Noted Date Comments Penicillins 07/30/2018 Medications glipiZIDE (GLUCOTROL) 10 MG tablet Take 1 tablet by mouth daily. Active lisinopril (PRINIVIL,ZESTR IL) 10 MG tablet Take 1 tablet by mouth daily. Active topiramate (TOPAMAX) 100 MG tablet Take 1 tablet by mouth 2 (two) times a day. 01/07/2010 Active rivaroxaban (XARELTO) 10 mg tablet Take 10 mg by mouth daily. Active amLODIPine (NORVASC) 10 MG tablet Take 10 mg by mouth daily. Active BASAGLAR KWIKPEN U-100 INSULIN 100 unit/mL (3 mL) InPn injection pen Inject 30 Units under the skin nightly at bedtime. Active mirtazapine (REMERON) 15 MG tablet Take 15 mg by mouth nightly at bedtime. Active naloxegoL (MOVANTIK) 25 mg tablet Take 25 mg by mouth daily. Active fentaNYL (DURAGESIC) 100 mcg/hr Place 1 patch onto the skin every third day. Active fentaNYL (DURAGESIC) 50 mcg/hr Place 1 patch onto the skin every third day. ChronicPain- partial fill ok Active Active Problems Problem Noted Date Diagnosed Date Calculus of gallbladder with out cholecystitis without obstruction 10/01/2023 Biliary colic 10/01/2023 A-fib 09/25/2023 Assessment & Plan (09/25/2023 7:08 AM EDT): On Xarelto at home for Afib - Pt's son and coumadin clinic notes state pt also had a PE ~2018 - Holding Xarelto pending surgical evaluation - Will order Lovenox while Xarelto on hold DDD (degenerative disc disease), lumbar 09/25/19 24 Cervical spondylosis 09/25/2023 Pulmonary embolism 09/25/2023 RUQ abdominal pain 09/23/2023 Assessment & Plan (09/25/2023 3:44 PM EDT): Right upper quadrant abdominal pain -T. Bili 5 on admission > 2.2, AST/ALT WNL - CT abdomen pelvis w contrast: mild dilated proximal small bowel loops without a definitive transition point may represent ileus/enteritis - RUQ ultrasound gallbladder sludge without evidence of acute cholecystitis. - MRCP showed a 2 cm gallstone, no evidence of cholecystitis or choledocholithiasis. Reviewed by Dr. Green who recommended cholecystectomy - Seen by general surgery who recommended outpatient follow up for lap mack as well as derm consult for left side of face lesion. - Continue low fat diet on discharge. - Resume Xarelto on discharge continue Lovenox while inpatient will need to be held 3 days prior to surgery GI opined less likely that symptoms related to ileus, chronic narcotic use pt likely has chronic small bowel distention dilatation. - Due to abdominal pain, elevated T. bili, and intermittent chills and sweats pt was started on empiric antibiotics with ceftriaxone Flagyl on 09/22. Pt remained afebrile and without leukocytosis during admission. Antibiotics were discontinued after MRCP completed. Chronic pain syndrome 09/23/2023 Assessment & Plan (09/25/2023 3:45 PM EDT): Chronic pain on opiate based medication - Pt has been prescribed Fentanyl 50 mcg patch with 100 mcg patch every 72 hours by his PCP as per review of his MDR. - Continue home fentanyl 150 mcg total every 72 hrs as well as Movantik for opioid-induced constipation - Pt did complain of an atypical intermittent sharp electric pain in his sternum which has been present for years EKG afib with T wave inversions present in 2019. Trop 34/37/36. Plan for outpatient follow up with PCP Diffuse spasm of esophagus 06/05/2023 Headache 06/05/2023 Actinic keratosis 12/26/2022 Diabetic foot ulcer 04/26/2022 Cervico-occipital neuralgia 04/15/2018 Complication of surgical procedure 08/08/2017 Diverticular disease 08/08/2017 Essential hypertension 08/08/2017 Hypercholesterolemia 08/08/2017 Migraine without aura and responsive to treatmen t 08/08/2017 Myofascial pain syndrome 08/08/2017 Obstructive sleep apnea syndrome 08/08/2017 Overview (09/25/2023): on CPAP Squamous cell carcinoma of skin 08/08/2017 Overview (09/25/2023): face Type 2 diabetes mellitus 08/08/2017 Resolved Problems Problem Noted Date Diagnosed Date Resolved Date Pulmonary embolism 09/24/2023 Pulmonary embolism and infarction [I26.99] 03/03/2017 05/16/2017 DVT (deep venous thrombosis) 03/03/2017 05/16/2017 Chronic anticoagulation 03/03/201707/2017 Social History Tobacco Use Types Packs/Day Years Used Date Smoking Tobacco: Never Smokeless Tobacco: Never Tobacco Cessation:Counseling Given: Not Answered Alcohol Use Standard Drinks/Week Comments Never 0 (1 standard drink = 0.6 oz pur e alcohol) Education Answer Date Recorded Are you interested in more education? Not on danilo e 09/08/2022 Are you concerned about learning? Not on file 09/08/2022 No 09/08/2022 No 09/08/2022 Food Answer Date Recorded Within the past 6 months we worried whether our food would run out before we got money to buy more. Never True 09/24/2023 Within the past 6 months the food we bought just didn't last and we didn't have enough money to get more. Never True Residential Stability Answer Date Recor ded What is your housing situation today? I have ilda sing 09/24/2023 How many times have you move d in the past 12 months? Zero (I did not move) 09/24/2023 Paying for Meds Answer Date Recorded Do you have trouble paying for medicines? No 09/24/2023 Transportation Answer Date Recorded Has the lack of transportati on kept you from medical appointments or from getting medications? Yes 09/24/2023 Digital Access Answer Date Recorded Yes 09/24/2023 No 09/24/2023 Do you have reliable internet access at home? No 09/24/2023 Do you have a device (e.g., phone, tablet, computer) with a working camera? No 09/24/2023 Intimate Partner Violence Answer Date R ecorded Are you denied basic needs s uch as food, clothing, or medical care? No 10/12/2023 In the past 12 months have y ou been in a relationship with a person who hurts, threatens, or tries to control you? No 10/12/2023 Are you denied basic needs s uch as food, clothing, or medical care? No 10/12/2023 In the past 12 months have y ou been in a relationship with a person who hurts, threatens, or tries to control you? No 10/12/2023 Sex and Gender Information Value Date Recorded Sex Assigned at Male 07/30/2018 1:17 PM EDT Legal Sex Male 10:11 PM EDT Gender Identity Male 07/30/2018 1:17 PM EDT Sexual Orientation Straight 07/30/2018 1: 17 PM EDT Last Filed Vital Signs Vital Sign Reading Time Taken Comments Blood Pressure 110/67 10/12/2023 4:16 PM EDT Pulse 82 10/12/2023 6:20 PM EDT Temperature 36.6 C (97.9 F) 10/12/2023 4:16 PM EDT Respiratory Rate 16 10/12/2023 6:20 PM EDT Oxygen Saturation 96% 10/12/2023 6:20 PM EDT Inhaled Oxygen Concentration - - Weight 65.8 kg (145 lb) 10/12/2023 10:26 AM EDT Height 157.5 cm (5' 2 ) 09/24/2023 2:48 PM EDT Body Mass Index 26.52 09/24/2023 2:48 PM EDT Plan of Treatment Health Maintenance Due Date Last Done Comments Adult Td,Tdap Booster 1942 DEPRESSION SCREENING 1954 PNEUMOCOCCAL VACCINES (50+ years) (1 of 2 - PCV) 1961 ZOSTER VACCINES (1 of 2) 02/18/1992 LIPID PANEL 09/24/2011 09/23/2010 RSV VACCINE (1 - 1-dose 75+ series) 2017 DIABETIC EYE EXAM 09/25/2023 COVID-19 VACCINE (3 - 2023- season) 2024 07/22/2020, 06/24/2020 HEMOGLOBIN A1C 03/27/2024 09/25/2023 BLOOD PRESSURE 04/02/2024 10/01/2023 CREATININE LEVEL 10/11/2024 10/12/2023, , 09/25/2023, Additional history exists POTASSIUM LEVEL 10/11/2024 10/12/2023, 09/11, 09/25/2023, Additional history exists HEPATITIS A VACCINES Aged Out No long er eligible based on patient's age to complete this topic HIB VACCINES Aged Out No longer eligi ble based on patient's age to complete this topic MENINGOCOCCAL VACCINES (ACWY) Aged Out No longer eligible based on patient's age to complete this topic MENINGOCOCCAL VACCINES (B) Aged Out N o longer eligible based on patient's age to complete this topic Medical Devices Not on file Procedures Procedure Name Priority Date/Time Associated Diagnosis Comments BASIC METABOLIC PANEL STAT 10/12/2023 11:59 AM EDT HEMOGLOBIN A1C Routine 09/25/2023 5:41 AM EDT OUTSIDE LDL Routine 09/23/2010 from Last 3 Months or Most Recently Relevant to Health Maintenance Results * (ABNORMAL) Basic metabolic panel (10/12/2023 11:59 AM EDT) SODIUM 137 133 - 146 mmol/L [facility] CHLORIDE 102 96 - 108 mmol/L [facility] POTASSIUM 5.1 3.3 - 5.1 mmol/L [facility] Comment:Specimen slightly he molyzed, result may be falsely elevated. CO2 22 21 - 35 mmol/L [facility] BUN 22(H) 6 - 19 mg/dL [facility] CREATININE 0.80 0.5 - 1.5 mg/dL [facility] GLUCOSE 138(H) 70 - 99 mg/dL [facility] CALCIUM 9.7 8.4 - 10.3 mg/dL [facility] EGFR 89 >59 mL/min/1.7 3m2 [facility] Comment:Estimated glomerular filtration rate calculated using the CKD-EPI refit equation. ANION GAP 18 10 - 20 mmol/L [facility] Blood 10/12/2023 11:5 9 AM EDT 10/12/2023 12:02 PM EDT us Tiffany Rodney PA-C LAB BLOOD ORDERABLES Final Result Performing Organization Address City/[facility]/ZIP Co de Phone Number [address] [address] * (ABNORMAL) Hemoglobin A1c (09/25/2023 5:41 AM EDT) HEMOGLOBIN A1C 5.9(H) 4.3 - 5.8 % [facility] 09/25/2023 5:41 AM EDT 09/25/2023 5:59 AM EDT us Allen Desouza DO LAB BLOOD ORDERABLES Final Res ult Performing Organization Address City/[facility]/ZIP Co de Phone Number [address] [address] * (ABNORMAL) Outside LDL (09/23/2010) LDL - External 45(A) 50 - 250 mg/ml us Historical Provider LAB BLOOD ORDERABLES Carrie l Result from Last 3 Months or Most Recently Relevant to Health Maintenance Insurance [address] [place], [place] [id number] [place] [address] MEDEX SUPPLEMENT MEDICARE PART A & B CROSS MEDEX SUPPLEMENT MEDICARE PART A & B BLUE CROSS MEDEX SUPPLEMENT MEDICARE PART A & B [employer] CROSS MEDEX SUPPLEMENT MEDICARE PART A & B [employer] CROSS MEDEX SUPPLEMENT MEDICARE PART A & B [employer] MEDEX SUPPLEMENT MEDICARE PART A & B [employer] MEDEX SUPPLEMENT MEDICARE PART A & B [employer] MEDEX SUPPLEMENT MEDICARE PART A & B [employer] MEDEX SUPPLEMENT MEDICARE PART A & B MEDICARE PART A & B Member Subscriber Plan / Payer ( fective 2007-Present) Name:Ferny Barron Member ID:[id number] Relation to Subscriber:Self Name:BeatriceFerny rodarte Subscriber ID:[id number] Payer ID:[id number] Group ID:Not on file Type:Medicare Address: [employer] [address] [place] [phone] [employer] CROSS MEDEX SUPPLEMENT MEDICARE PART A & B [employer] MEDEX SUPPLEMENT MEDICARE PART A & B [employer] [place] [address] MEDICARE PART A & B [employer] MEDEX SUPPLEMENT MEDICARE PART A & B [employer] MEDEX SUPPLEMENT MEDICARE PART A & B [employer] MEDEX SUPPLEMENT MEDICARE PART A & B [facility] MEDEX SUPPLEMENT MEDICARE PART A & B [employer] [place] [address] MEDICARE PART A & B [employer] MEDEX SUPPLEMENT Advance Directives For more information, please contact: [phone] (9AM - 5PM Teresa/[facility], Sunday-Sunday) Documents on File Type Date Recorded Patient Lifter/Driver Expl anation Healthcare Proxy 09/28/2023 4:34 PM * Full Code (Latest Code Status on File) Date Activated Date Inactivated Comments 09/24/2023 7:10 AM Question Answer Comments Code Status Confirmed With: Patient Code Status Communicated To: Inpatient Attending Care Teams Wire Fence Builder Relationship Specialty Start Date End Date Erik Perkins DO [email or web address] PCP - General Internal Medicine 05/21/20 SuzyErik mojica DO [email or web address] Internal Medicine 05/21/20 Ander Cruz MD [address] [place] [id number] [email or web address] Hematology and Oncology 05/15/17 Additional Source Comments The information contained in this document represents components of the legal health record. It is not the complete legal health record.[facility]
--- OUTSIDE RECORDS SUMMARY | 2024-12-04 22:44 | XMS_ITS | Data Portability ---
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 MUST MEET 2 OUT OF 3 ELEMENTS: PROBLEMS, DATA OR RISK ELEMENT 1: PROBLEMS ADDRESSED 1 OR MORE CHRONIC ILLNESS WITH EXACERBATION OR 2 OR MORE STABLE CHRONIC ILLNESSES OR 1 UNDIAGNOSED NEW PROBLEM OR 1 ACUTE ILLNESS W/SYMPTOMS OR 1 ACUTE COMPLICATED INJURY ELEMENT 2: DATA MUST MEET 1 OF 3 CATEGORIES CATEGORY 1: REVIEW OF PRIOR EXTERNAL NOTES, REVIEW OF RESULTS, ORDERING OF EACH TEST, ASSESSMENT REQUIRING INDEPENDENT HISTORIAN OR CATEGORY 2: INDEPENDENT INTERPRETATION OF TESTS BY ANOTHER PHYSICIAN OR SPECIALIST OR CATEGORY 3: DISCUSSION OF MGT OR TEST INTERPRETATION W/EXTERNAL PHYSICIAN OR SPECIALIST ELEMENT 3: RISK RISK OF COMPLICATIONS AND/OR MORBIDITY OR MORTALITY OF PATIENT MANAGEMENT PROVIDER MUST THOROUGHLY DOCUMENT EACH ELEMENT THAT IS COVERED Not available 05/11/2023 14:33:00 06/05/2023 06/05/2023 [id number] [place] [id number]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 MUST MEET 2 OUT OF 3 ELEMENTS: PROBLEMS, DATA OR RISK ELEMENT 1: PROBLEMS ADDRESSED 1 OR MORE CHRONIC ILLNESS WITH EXACERBATION OR 2 OR MORE STABLE CHRONIC ILLNESSES OR 1 UNDIAGNOSED NEW PROBLEM OR 1 ACUTE ILLNESS W/SYMPTOMS OR 1 ACUTE COMPLICATED INJURY ELEMENT 2: DATA MUST MEET 1 OF 3 CATEGORIES CATEGORY 1: REVIEW OF PRIOR EXTERNAL NOTES, REVIEW OF RESULTS, ORDERING OF EACH TEST, ASSESSMENT REQUIRING INDEPENDENT HISTORIAN OR CATEGORY 2: INDEPENDENT INTERPRETATION OF TESTS BY ANOTHER PHYSICIAN OR SPECIALIST OR CATEGORY 3: DISCUSSION OF MGT OR TEST INTERPRETATION W/EXTERNAL PHYSICIAN OR SPECIALIST ELEMENT 3: RISK RISK OF COMPLICATIONS AND/OR MORBIDITY OR MORTALITY OF PATIENT MANAGEMENT PROVIDER MUST THOROUGHLY DOCUMENT EACH ELEMENT THAT IS COVERED Not available 06/05/2023 14:00:24 08/11/2024 08/11/2024 [id number] [place] [id number]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 REVIEW OF PRIOR EXTERNAL NOTES/RESULTS, ORDERING OF TEST(S) CATEGORY 2. ASSESSMENT REQUIRING INDEPENDENT HISTORIAN(S) INCLUDE WHO THE HISTORIAN IS AND RELATION TO PT AND WHY PT IS UNABLE TO GIVE COMPLETE HISTORY ELEMENT 3: RISK (LOW) RISK OF COMPLICATIONS AND/OR MORBIDITY OR MORTALITY OF PATIENT MANAGEMENT PROVIDER MUST THOROUGHLY DOCUMENT ALL OF THE ELEMENTS COVERED Not available 08/11/2024 12:00:21 Plan of Treatment Reminders Order Date Submit Date Provider Last Modified By Organization Details Last Modified Time Details Appointments FOLLOW UP 15 2024 03:30P M DR SHAW Not available Not available Not available Lab HbA1c (hemoglob in A1c), blood 2024 [id number] [facility], [address] [place] [address], [id number], 08/11/2024 11:55:58 CMP, serum or plasma 2024 025 [facility], [address] [place] [address], [id number], 09/10/2024 14:01:39 CBC 2024 025 [facility], [address] [place] [address], [id number], 08/11/2024 11:55:58 microalbu min, urine 2024 025 [facility], [address] [place] [address], [id number], 08/11/2024 11:55:58 CBC w/ auto diff 2023 024 [facility], [address] [place] [address], [id number], 11/19/2023 13:52:52 CMP, serum or plasma 2023 024 [facility], [address] [place] [address], [place], [address], 11/19/2023 13:52:52 TSH + free T4, serum 2023 024 [facility], [address] [place] [address], [id number], 11/19/2023 13:52:52 T3, free, serum or plasma 2023 024 [facility], [address] [place] [address], [place], [address], 11/19/2023 13:52:52 CMP, serum or plasma 2022 023 [facility], [address] [place] [address], [place], [address], 05/16/2023 11:18:05 CBC w/ auto diff 2022 023 [facility], [address] [place] [address], [place], [address], 05/16/2023 11:18:05 HbA1c (hemoglob in A1c), blood 2022 023 [facility], [address] [place] [address], [id number], 05/16/2023 11:18:04 Referral None recorded. Procedures None recorded. Surgeries None recorded. Imaging CT, head, w/o contrast - head injury with headaches ever since 2023 [id number] [email or web address] Not available 06/06/2023 08:23:56 RF, upper gastroint estinal tract + small bowel, w/ contrast PO 2022 [id number] [email or web address] Not available 05/18/2023 08:15:15 Medication Orders atorvasta tin 80 mg tablet 2023 024 [facility]84, [address], [place], [id number], 11/19/2023 13:45:22 metformin 500 mg tablet 2023 024 [facility] #82803, [address], [place], [id number], 11/19/2023 13:46:04 levetirac etam 500 mg tablet 2023 024 [facility], [address], [place], [id number], 11/19/2023 13:45:24 tamsulosi n 0.4 mg capsule 2023 024 [facility]99495, [address], [place], [id number], 11/19/2023 13:45:27 amlodipin e 10 mg tablet 2023 024 [facility] #91208, [address], [place], [id number], 11/19/2023 13:45:28 lisinopri l 10 mg tablet 2023 024 [facility] #54889, [address], [place], [id number], 11/19/2023 13:46:48 mirtazapi ne 15 mg tablet 2023 024 [facility] #62751, [address], [place], [id number], 11/19/2023 13:45:22 omeprazol e 20 mg capsule,d elayed release 2023 024 [facility]13366, [address], [place], [id number], 11/19/2023 13:45:26 amlodipin e 10 mg tablet 2023 024 [facility] #16626, [address], [place], [id number], 06/05/2023 14:01:03 ondansetr on HCl 8 mg tablet 2022 024 [facility] #34082, [address], [place], [id number], 11/19/2023 13:27:33 Patient TargetsNo targets recorded. Patient Instructions Encounter Date Encounter Id Patient Instructions Last Modified By Organization Details Last Modified Time 05/11/2023 [id number] learning about type 2 diabetes Not available 05/11/2023 14:33:14 type 2 diabetes: care instructions Not available 05/11/2023 14:33:13 high blood pressure: care instructions Not available 05/11/2023 14:33:13 learning about high blood pressure Not available 05/11/2023 14:33:13 06/05/2023 [id number] headache: care instructions Not available 06/05/2023 14:04:17 Reason for Referral None Reported. Results Created Date Observation Date Name Description Value Unit Range Abnormal Flag Note LastModifiedBy Organization Detail LastModifiedTime 05/18/1905/18/2023 RF, upper gastr ointe kelly l tract + small bowel , w/ contr ast PO No observ ation record ed. [facility] [address] [place], [address], 06/05/2023 13:51:14 06/29/19 24 06/28/2023 CT, head, w/o contr ast No observ ation record ed. [email or web address] [facility] [address] [place], [address], 06/29/2023 14:12:45 10/14/19 24 10/13/2023 XR, chest , 1 view No observ ation record ed. [email or web address] [facility] (Medical Records) [address] [place], [address], 10/15/2023 08:27:42 10/14/19 24 10/13/2023 CT, angio gram, head + neck, w/wo contr ast No observ ation record ed. [email or web address] [facility] (Medical Records) [address] [place], [address], 10/15/2023 08:28:15 10/14/19 24 10/13/2023 CT, head, w/o contr ast No observ ation record ed. [email or web address] [facility] (Medical Records) [address] [place], [address], 10/15/2023 22:55:43 10/14/19 24 10/14/2023 US, abdom en, limit ed No observ ation record ed. [email or web address] [facility] (Medical Records) [address] [facility], [address], 10/15/2023 08:28:38 10/14/19 24 10/14/2023 CT, angio gram, head + neck, w/wo contr ast No observ ation record ed. [facility] (Medical Records) [address] [place], [address], 10/15/2023 22:56:24 10/18/19 24 10/18/2023 CT, head, w/o contr ast No observ ation record ed. [email or web address] [facility] (Medical Records) [address] [place], [address], 10/18/2023 22:48:13 10/22/19 24 10/19/2023 XR, chest , 2 view No observ ation record ed. [email or web address] [facility] (Medical Records) [address] [place], [address], 10/22/2023 13:44:41 10/22/19 24 10/19/2023 XR, chest , w/ fluor oscop y No observ ation record ed. [email or web address] [facility] (Medical Records) [address] [place], [address], 10/22/2023 13:45:12 12/01/19 25 11/30/2024 CT, abdom en + pelvi s, w/ contr ast No observ ation record ed. [email or web address] [facility] (Medical Records) [address] [place], [address], 12/01/2024 08:34:44 12/02/19 25 11/30/2024 US, abdom en, limit ed No observ ation record ed. [email or web address] [facility] (Medical Records) [address] [place], [address], 12/01/2024 08:35:26 Result Notes None recorded. Problems Name Problem SNOMED Code Status Onset Date Resolution Date Notes Provider Name and Address Organization Details Recorded Time Type 2 diabetes mellitus 06001832 Active 2017 Not Available [facility] 3 11:56:21 Diverticu lar disease 533545791 Active 2017 Not Available [facility] 3 11:56:21 Migraine without aura 29231277 Active 2017 Not Available [facility] 3 11:56:21 Essential hypertens ion 22496111 Active 2017 Not Available [facility] 3 11:56:21 Squamous cell carcinoma of skin 678045019 Active 2017 face Not Available [facility] 3 11:56:21 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 82079850 Active 2017 Not Available [facility] 3 11:56:21 Post-lami nectomy syndrome 39065813 Active 2017 Not Available [facility] 3 11:56:21 Myofascia l pain syndrome 477371665 Active 2017 Not Available [facility] 3 11:56:21 Radicular pain 98626290 Active 2017 lumbar Not Available [facility] 3 11:56:21 Obstructi ve sleep apnea syndrome 50724124 Active 2017 on CPAP Not Available [facility] 3 11:56:22 Hyperchol esterolem ia 50552345 Active 2017 Not Available [facility] 3 11:56:21 Cervico-o ccipital neuralgia 66174912 Active 2017 Not Available [facility] 3 11:56:21 Chronic atrial fibrillat ion 874850481 Active 2019 Not Available [facility] 3 11:56:21 Therapeut ic opioid induced constipat ion 49541648009 9102 Active 2019 Not Available [facility] 3 11:56:21 Atrial fibrillat ion 44294903 Active 2021 Not Available [facility] 3 11:56:21 Acquired right hallux valgus 28453869040 4106 Active 2021 Not Available [facility] 3 11:56:21 Chronic pain 04050718 Active 2021 Not Available [facility] 3 11:56:22 Diabetic foot ulcer 523901054 Active 2021 Not Available [facility] 3 11:56:21 Actinic keratosis 918383539 Active 2022 Not Available [facility] 3 11:56:21 Intractab le nausea and vomiting 340362951 Active 2022 Erik Shaw DO [address] [place] [address], [address], [facility] 3 14:26:39 Diffuse spasm of esophagus 82025696 Active 2023 Erik Shaw DO [address] [place] [address], [address], [facility] 4 13:57:14 Headache 45671157 Active 2023 Erik Shaw, DO [address] [place], [address], [facility] Internal [facility] 4 14:01:14 Impacted cerumen of bilateral ears 76034259013 64694 Active 2023 JANY LONG [address] [place] [address], [address], [facility] 4 15:18:08 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 JANY LONG [address] [place] [address], [address], [facility] 4 13:37:07 Cholecyst itis 55934874 Active 2023 JANY LONG [address] [place] [address], [address], [facility] 4 13:39:08 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 242313963 Active 2023 JANY LONG [address] [place] [address], [address], [facility] 4 13:40:30 Depressiv e disorder 27145745 Active 2023 JANY LONG [address] [place] [address], [address], [facility] 4 13:41:00 Seizure disorder 002985456 Active 2023 JANY LONG [address] [place] [address], [address], [facility] 4 13:42:42 Subclinic al hyperthyr oidism 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 Procedures Surgical History Date Name Laterality Status Provider Name and Address Organization Details Recorded Time 08/21/19 24 Cerumen Removal completed JANY LONG [address] [facility], [place], [address], [facility] 08/21/2023 15:18:01 04/19/20 18 Family Practice Trigger Point Injection completed Erik Shaw DO [address] [place], [address], [facility] 04/19/2018 11:50:49 Imaging Results None recorded. Procedure Notes None recorded. Medical Equipment None Reported. Allergies Allergen ID Allergen Name Allergen Category Reaction Reaction Severity Criticality Documentation Date Start Date Code Code System Note Provider Name and Address Organization Details Recorded Time 728 penicilli n V Not available hives Not available Not available 08/08/2017 7984 RxNorm Leigh Ruvalcaba [facility] 8 11:55:06 Medications Name Sig Start Date Stop Date Status Note LastModified by Organization Details LastModified Time Prescriptio n - Prior Authorizati on Request 11/18 completed Not Available Not Available Not Available metformin 500 mg tablet TAKE 1 TABLET BY MOUTH TWICE DAILY 2024 active Not Available Not Available Not Avai lable fentanyl 50 mcg/hr transdermal patch APPLY 1 PATCH TOPICALLY TO THE SKIN EVERY 72 HOURS *MYLAN ONLY* 2024 active Not Available Not Available Not Avai lable atorvastati n 80 mg tablet Take 1 tablet every day by oral route as directed for 30 days. active Not Available Not Available No t Available lamotrigine 200 mg tablet TAKE 1 TABLET BY MOUTH EVERY MORNING AND 2 TABLETS IN THE EVENING 03/05 completed Not Available Not Available Not Available clindamycin HCl 300 mg capsule TAKE 1 CAPSULE BY MOUTH FOUR TIMES DAILY active Not Available Not Available No t Available azithromyci n 250 mg tablet TAKE 2 TABLETS BY MOUTH NOW THEN 1 TABLET EVERY DAY UNTIL FINISHED active Not Available Not Available No t Available levetiracet am 500 mg tablet TAKE 1 TABLET BY MOUTH EVERY DAY DIRECTED 2024 active Not Available Not Available Not Avai lable ondansetron HCl 8 mg tablet TAKE 1 TABLET BY MOUTH TWICE DAILY FOR 14 DAYS 11/18 completed Not Available Not Available Not Available glipizide 10 mg tablet TAKE 1 TABLET BY MOUTH EVERY DAY 11/18 completed Not Available Not Available Not Available amlodipine 5 mg tablet TAKE 1 TABLET BY MOUTH EVERY DAY 11/18 completed Not Available Not Available Not Available sulfamethox azole 800 mg-trimetho prim 160 mg tablet TAKE 1 TABLET BY MOUTH TWO TIMES A DAY FOR 7 DAYS. TAKE WITH PLENTY OF WATER. active Not Available Not Available No t Available fentanyl 100 mcg/hr transdermal patch APPLY 1 PATCH TOPICALLY TO THE SKIN EVERY 72 HOURS *MYLAN ONLY* 2024 active Not Available Not Available Not Avai lable tamsulosin 0.4 mg capsule TAKE 1 CAPSULE BY MOUTH EVERY DAY DIRECTED active Not Available Not Available No t Available amlodipine 10 mg tablet TAKE 1 TABLET BY MOUTH EVERY DAY active Not Available Not Available No t Available lisinopril 10 mg tablet TAKE 1 TABLET BY MOUTH EVERY DAY active Not Available Not Available No t Available omeprazole 20 mg capsule,del ayed release TAKE 1 CAPSULE BY MOUTH TWICE DAILY 2024 active Not Available Not Available Not Avai lable diclofenac sodium 75 mg tablet,cheri yed release Take 1 tablet twice a day by oral route for 10 days. 03/17 completed Not Available Not Available Not Available mirtazapine 15 mg tablet TAKE 1 TABLET BY MOUTH EVERY DAY active Not Available Not Available No t Available metoprolol succinate ER 25 mg tablet,exte nded release 24 hr TAKE 1 TABLET BY MOUTH EVERY DAY active Not Available Not Available No t Available fentanyl 25 mcg/hr transdermal patch 11/26 completed Not Available Not Available Not Available fentanyl 75 mcg/hr transdermal patch Apply 2 patches every 72 hours by transderm al route for 30 days. 07/19 completed Not Available Not Available Not Available topiramate 100 mg tablet TAKE 1 TABLET BY MOUTH TWICE DAILY 11/18 completed Not Available Not Available Not Available naproxen 500 mg tablet TAKE 1 TABLET BY MOUTH EVERY 6 TO 8 HOURS NEEDED FOR PAIN active Not Available Not Available No t Available azithromyci n 500 mg tablet 07/23 completed Not Available Not Available Not Available fentanyl 12 mcg/hr transdermal patch 12/14 completed Not Available Not Available Not Available chlorhexidi ne gluconate 0.12 % mouthwash 07/23 completed Not Available Not Available Not Available Novofine 32 32 gauge x 1/4 needle USE DIRECT TO INJECT INSULIN EVERY DAY 11/18 completed Not Available Not Available Not Available Xarelto 10 mg tablet TAKE 1 TABLET BY MOUTH EVERY DAY 11/18 completed Not Available Not Available Not Available Eliquis 5 mg tablet TAKE 1 TABLET BY MOUTH TWICE DAILY DIRECTED active Not Available Not Available No t Available Movantik 25 mg tablet TAKE 1 TABLET BY MOUTH EVERY DAY 12/26 completed Not Available Not Available Not Available Jennifer SoloStar U-300 Insulin 300 unit/mL (1.5 mL) subcutaneou s pen 12/14 completed Not Available Not Available Not Available Basaglmariluz KwikPen U-100 Insulin 100 unit/mL (3 mL) subcutaneou s INJECT 30 UNITS UNDER THE SKIN ONCE DAILY active Not Available Not Available No t Available Fluzone High-Dose Quad 2020-21 (PF) 240 mcg/0.7 mL IM syringe PHARMACY ADMINISTE RED 06/14 completed Not Available Not Available Not Available Vitals Date Recorded Body height Body mass index (BMI) Body weight Provider Name and Address Organization Details Last Updated DateTime 08/21/2023 160.02 cm 25.9 kg/m2 34649.49 g JANY LONG [address] [place] [address], [address], [facility] 08/21/2023 11:06:15 Date Recorded Body height Heart rate Oxygen saturation Oxygen saturation in Arterial blood by Pulse oximetry Body mass index (BMI) Body weight Systolic And Diastolic Provider Name and Address Organization Details Last Updated DateTime 4 160.02 cm 108 /min 97 % 97 % 25.7 kg/m2 97204.8 9 g 150/82 mm[Hg] Noé Galvan [facility] 4 13:28:57 Social History Question Answer Notes LastModified by Organizat ion Details LastModified Time Tobacco Smoking Status Former Smoker Not Available [facility] 03/16/2020 03:36:24 What Was The Date Of Your Most Recent Tobacco Screening? 11/19/2023 [email or web address] Information not available 11/19/2023 Sex: Unknown Functional Status None recorded. Mental Status None recorded. Family History Nothing Reported. Medical History No medical history recorded. Immunizations Vaccine Type Date Status Note Provider Nam e and Address Organization Details Recorded Time Influenza, split virus, quadrivalent, preservative 9 completed Not Available [facility] 05/31/2019 02:46:30 COVID-19, mRNA, LNP-S, PF, 100 mcg/0.5mL dose or 50 mcg/0.25mL dose 1 completed [facility] 04/25/2022 11:16:53 COVID-19, mRNA, LNP-S, PF, 30 mcg/0.3 mL dose, timothy-sucrose 2 completed [facility] 04/25/2022 11:17:27 influenza, unspecified formulation 2 completed [facility] 04/25/2022 11:17:46 Influenza, split virus, quadrivalent, preservative 0 completed [facility] 04/12/2020 08:10:10 COVID-19, mRNA, LNP-S, PF, 100 mcg/0.5mL dose or 50 mcg/0.25mL dose 1 completed [facility] 07/23/2020 14:52:18 COVID-19, mRNA, LNP-S, PF, 100 mcg/0.5mL dose or 50 mcg/0.25mL dose 1 completed [facility] 07/23/2020 14:52:26 Past Encounters Encounter ID Performer Location Encounter Start Date Encounter Closed Date Diagnosis/Indication Diagnosis SNOMED-CT Code Diagnosis ICD10 Code Diagnosis Note [id number] Erik Shaw DO [facility] [address] [facility],[place] [address] 11/26/2017 12:11:50 11/26/2017 14:53:25 Degeneration of lumbar intervertebral disc 65290648 M51.36 baseline no change this is the one major problem in his life fentanyl not as effective as in past Type 2 be betes mellitus 10837847 E11.9 here for recheck jayjay williamson will need to cut back by 5 units to 25 u qhs will follow and cont to decrease insulin as noted Essential hypertension 53305635 I10 [place] [id number] Erik Shaw DO [facility] [address] [facility] [address] [address] 04/15/2018 13:28:48 04/15/2018 15:01:45 Type 2 diabetes mellitus 03339573 E11.9 a1c is 5.4 again and he is still doing great after cutting down dose last visit Essential hypertension 52133512 I10 overall stable saloni w bp Cervico-oc cipital neuralgia 97677827 M54.81 will arrange to get a cortisone inject trigger [id number] Erik Shaw [facility] [address] [facility] [address] [address] 04/19/2018 11:19:59 04/22/2018 11:19:25 Cervico-occipital neuralgia 21042760 M54.81 cortisone inject trigger point Degenerati on of lumbar intervertebral disc 40017723 M51.36 baseline no change this is the one major problem in his life fentanyl not as effective as in past [id number] Erik Shaw DO [facility] [address] [facility] [address] [address] 07/24/2018 14:07:08 07/24/2018 14:38:11 Essential hypertension 22053031 I10 overall stable saloni w bp and will cont current med Type 2 be betes mellitus 27463038 E11.9 a1c is 6.1 again and he is still doing great after cutting down dose last visit was 5.4 [id number] Erik Shaw DO [facility] [address] [facility] [address] [address] 12/11/2018 15:47:06 12/11/2018 16:44:55 Type 2 diabetes mellitus 09740541 E11.9 a1c is 6.3 which is amazing given the length of time he is not taking care of himself relates not following diet will have him cont to follow as needed and rechk 3 mo Essential hypertension 10777372 I10 overall stable saloni w bp and will cont current med Degenerati on of lumbar intervertebral disc 02399840 M51.36 baseline no change this is the one major problem in his life fentanyl not as effective as in past Hypercholesterolemia 136 73062 E78.00 will need rechk [id number] Erik Shaw [facility] [address] [facility] [facility] [address] 03/05/2019 14:22:42 03/05/2019 15:13:47 Essential hypertension 79163539 I10 overall stable saloni w bp and will cont current med Type 2 be betes mellitus 92719753 E11.9 a1c is 6.9 was 6.3 and he admits to not taking care feels he is lonesome relates not following diet will have him cont to follow as needed and rechk 3 mo Depressive disorder 3548 9007 F32.9 Administra tion of influenza vaccine 91581312 Z23 [id number] Erik Shaw [facility] [address] [facility] [address] 07/21/2019 14:06:12 07/21/2019 14:31:50 Type 2 diabetes mellitus 73712818 E11.9 a1c is 6.9 was 6.9 was 6.3 and he admits to not taking care he still feels he is lonesome relates not following diet will have him cont to follow as needed and rechk 3 mo he did overtake his cannabis the other month and he needed to be eval in the ER was released without incident Essential hypertension 46701361 I10 overall stable saloni w bp and will cont current med Active or passive immunization 673558480 Z23 Chronic at rial fibrillation 515440252 I48.20 seems controlled with addition of xarelto Therapeuti c opioid induced constipation [id number] 37833 T40.2X5A [id number] Erik Shaw [facility] [address] [facility],[place] [address] 11/18/2019 15:38:10 11/18/2019 16:14:38 Essential hypertension 29208027 I10 overall stable saloni w bp and will cont current med Type 2 be betes mellitus 48879512 E11.9 a1c is 6.6 and was 6.9 was 6.9 was 6.3 and he admits to not taking care he still feels he is lonesome relates not following diet will have him cont to follow as needed and rechk 3 mo he did overtake his cannabis the other month and he needed to be eval in the ER was released without incident Degenerati on of lumbar intervertebral disc 17510355 M51.36 baseline no change this is the one major problem in his life but feels he may be even worse fentanyl not as effective as in past Chronic at rial fibrillation 453305886 I48.20 seems controlled with addition of xarelto Tendinitis of left hand 7024063000 7141834 M67.844 fairly prominent swelling and is quite painful [id number] Erik Shaw [facility] [address] [facility],[place] [address] 03/17/2020 15:44:31 03/17/2020 16:15:14 Type 2 diabetes mellitus 21203982 E11.9 a1c is6.6.6 and previous was 6.6 and was 6.9 was 6.9 was 6.3 and he admits to not taking care he still feels he is lonesome relates not following diet will have him cont to follow as needed and rechk 3 mo he did overtake his cannabis the other month and he needed to be eval in the ER was released without incident Essential hypertension 60186788 I10 overall stable saloni w bp and will cont current med Chronic at rial fibrillation 682065952 I48.20 seems controlled with addition of xarelto Infection of tooth 45387 8007 K04.7 will tx and see if we can calm it down [id number] Erik Shaw [facility] [address] [facility],[place] [employer] [place] [address] 07/23/2020 14:41:09 07/23/2020 15:13:41 Chronic atrial fibrillation 131815783 I48.20 seems controlled with addition of xarelto Essential hypertension 45225332 I10 overall stable saloni w bp and will cont current med Type 2 be betes mellitus 17540396 E11.9 a1c is 6.9 and was 6.6 and previous was 6.6 and was 6.9 was 6.9 was 6.3 and he admits to not taking care he still feels he is lonesome relates not always following diet will have him cont to follow as needed and rechk 3 mo he cont to take his cannabis without incident sometimes helpful Dyspnea on exertion 6084 5006 R06.09 doing a little worse so we will eval this Trigger fi nger of left hand [id number] 4853909 M65.30 4th finger and others very painful and he will fet back to me when ready to see dr saldaña [id number] Erik Shaw [facility] [address] [facility], [place] 7 12/07/2020 13:33:14 12/07/2020 14:01:26 Type 2 diabetes mellitus 67700892 E11.9 a1c is 6.8 and before was 6.9 and was 6.6 and previous was 6.6 and was 6.9 was 6.9 was 6.3 and he admits to not taking care he still feels he is lonesome relates not always following diet will have him cont to follow as needed and rechk 3 mo he cont to take his cannabis without incident sometimes kcpufquy7c is stable Essential hypertension 14435858 I10 overall stable saloni w bp and will cont current med Chronic at rial fibrillation 841617348 I48.20 seems controlled with addition of xarelto Atypical chest pain 1025 12699 R07.89 im not sure what this is there is no pattern it is not reproducib le, lasts less than a second and had stopped since that one day . [id number] Erik Shaw [facility] [address] [facility],[place] [address] 01/21/2021 14:10:36 01/21/2021 15:05:16 Chronic atrial fibrillation 579203449 I48.20 seems controlled with addition of xarelto Essential hypertension 86917607 I10 overall stable saloni w bp and will cont current med [id number] Erik Shaw [facility] [address] [facility], [facility], [place] 7 04/29/2021 08:37:32 04/29/2021 15:34:00 Chronic atrial fibrillation 535626260 I48.20 seems controlled with addition of xarelto no prob with med Degenerati on of lumbar intervertebral disc 26144517 M51.36 baseline no change this is the one major problem in his life but feels he may be even worse fentanyl not as effective as in past back is slowly progressin g making him less mobile Essential hypertension 81210870 I10 overall stable saloni w bp and will cont current med Type 2 be betes mellitus 14335746 E11.9 a1c is now 7.1 was 6.8 and before was 6.9 and was 6.6 and previous was 6.6 and was 6.9 was 6.9 was 6.3 and he admits to not taking care he still feels he is lonesome relates not always following diet will have him cont to follow as needed and rechk 3 mo he cont to take his cannabis without incident sometimes xvufejzg9f is stable at 7.1 [id number] Erik Shaw [facility] [address] [facility] [place] [address] 08/03/2021 13:48:55 08/05/2021 10:43:56 Hypercholesterolemia 95732946 E78.00 will need rechk Type 2 be betes mellitus 73111613 E11.9 a1c is now 6.8 he was 7.1 was 6.8 and before was 6.9 and was 6.6 and previous was 6.6 and was 6.9 was 6.9 was 6.3 and he admits to not taking care he still feels he is lonesome relates not always following diet will have him cont to follow as needed and rechk 3 mo he cont to take his cannabis without incident sometimes zndscgdf0j is stable at 7.1 Essential hypertension 98788270 I10 overall stable saloni w bp and will cont current med Chronic at rial fibrillation 982841401 I48.20 seems controlled with addition of xarelto [place] prob with [place] [id number] Erik Shaw [facility] [address] [facility],[place] [address] 12/14/2021 16:24:00 12/14/2021 16:50:44 Hypercholesterolemia 23234912 E78.00 will need rechk Type 2 be betes mellitus 69803011 E11.9 a1c is now 6.7 and prior was 6.8 he was 7.1 was 6.8 and before was 6.9 and was 6.6 and previous was 6.6 and was 6.9 was 6.9 was 6.3 and he admits to not taking care he still feels he is lonesome relates not always following diet will have him cont to follow as needed and rechk 3 mo he cont to take his cannabis without incident sometimes hownklnc5k is stable at 7.1 Essential hypertension 10378953 I10 overall stable saloni w bp and will cont current med Chronic at rial fibrillation 966164217 I48.20 seems controlled with addition of xarelto no prob with med Atrial fibrillation 4943 6004 I48.91 stable no issues Active or passive immunization 077021340 Z23 Acquired r ight hallux valgus 1534877496 25544 M20.11 [id number] [facility] [address] [facility],[place] [address] 04/26/2022 14:36:22 04/26/2022 15:37:00 Chronic atrial fibrillation 127003948 I48.20 seems controlled with addition of xarelto no prob with med Hypercholesterolemia 136 46076 E78.00 will need rechk Type 2 be betes mellitus 02217986 E11.9 a1c is now at 6.3 6.7 and prior was 6.8 he was 7.1 relates not always following diet will have him cont to follow as needed and rechk 3 mo he cont to take his cannabis without incident sometimes pietiyjd1y is stable at 7.1 Essential hypertension 86147047 I10 overall stable saloni w bp and will cont current med Diabetic foot ulcer 3710 05550 E13.621 we will use xerform dressing on woummd for now and have ordered a collagen silver dressing for him [id number] [facility] [address] [facility], [place] [address] 07/26/2022 14:27:33 07/26/2022 17:06:24 Chronic atrial fibrillation 232783249 I48.20 seems controlled with addition of xarelto no prob with med Type 2 be betes mellitus 32688648 E11.9 a1c is now at 6.3 again was 6.3 and prior was 6.7 and prior was 6.8 he was 7.1 relates not always following diet will have him cont to follow as needed and rechk 3 mo he cont to take his cannabis without incident sometimes bzczlfro2e is stable at 7.1 Essential hypertension 80344984 I10 overall stable saloni w bp and will cont current med Obstructiv e sleep apnea syndrome 86964884 G47.33 stable sleeps well Diabetic foot ulcer 3710 35388 E13.621 L97.409 getting better every weekwe will use xerform dressing on wound for now and have ordered a collagen silver dressing for him Advance care planning 71 2288462 Z71.89 utd Degenerati on of lumbar intervertebral disc 85608011 M51.36 baseline no change this is the one major problem in his life but feels he may be even worse fentanyl not as effective as in past back is slowly progressin g making him less mobile [id number] Erik Shaw [facility] [address] [facility],[place] [address] 11/29/2022 15:48:05 12/01/2022 13:55:15 Chronic atrial fibrillation 165725536 I48.20 seems controlled with addition of xarelto no prob with med Degenerati on of lumbar intervertebral disc 32343436 M51.36 baseline no change this is the one major problem in his life but feels he may be even worse fentanyl not as effective as in past back is slowly progressin g making him less mobile Essential hypertension 76399493 I10 overall stable saloni w bp and will cont current med Type 2 be betes mellitus 33414667 E11.9 a1c is now at 6.1 he was 6.3 again was 6.3 and prior was 6.7 and prior was 6.8 he was 7.1 relates not always following diet will have him cont to follow as needed and rechk 3 mo he cont to take his cannabis without incident sometimes vuetpfgn7w is stable at 7.1 [id number] Erik Shaw DO [facility] [address] [facility],[place] [address] 12/26/2022 11:08:34 12/26/2022 11:59:40 Atrial fibrillation 18756368 I48.0 stable Essential hypertension 58868639 I10 BP is okay Type 2 be betes mellitus 96542798 E11.9 stable Actinic keratosis 628370 007 L57.0 send out referral Squamous c ell carcinoma of skin 993054191 C44.329 will set up with derm [id number] Erik Shaw [facility] [address] [facility],[place] [address] 05/11/2023 08:25:32 05/11/2023 15:47:22 Essential hypertension 70056662 I10 overall stable saloni w bp and will cont current med Type 2 be betes mellitus 93755392 E11.9 a1c is now at 6.1 he was 6.3 again was 6.3 and prior was 6.7 and prior was 6.8 he was 7.1 relates not always following diet will have him cont to follow as needed and rechk 3 mo he cont to take his cannabis without incident sometimes vxdmcddq7x is stable at 7.1 Intractabl e nausea and vomiting 981685927 R11.2 [id number] Erik Shaw [facility] [address] [facility],[place] [address] 06/05/2023 12:23:31 06/05/2023 14:06:18 Type 2 diabetes mellitus 88167314 E11.9 a1c is now at 6.1 he was 6.3 again was 6.3 and prior was 6.7 and prior was 6.8 he was 7.1 relates not always following diet will have him cont to follow as needed and rechk 3 mo he cont to take his cannabis without incident sometimes iebffhft1f is stable at 7.1 Essential hypertension 66895776 I10 overall stable saloni w bp and will cont current med Diffuse sp asm of esophagus 18349067 K22.4 will need GI consult if amodipine not helping Headache 88398918 R51.9 pt has been having daily headaches [id number] Erik Shaw [facility] [address] [facility],[place] [address] 08/21/2023 11:00:02 08/21/2023 11:28:02 Impacted cerumen of bilateral ears 9278142960 258399 H61.23 resolved [id number] Erik Shaw [facility] [address] [facility],[place] [address] 11/19/2023 13:20:45 11/19/2023 14:01:23 Depression screening 199224607 Z13.31 negative Cerebrovas cular accident 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 I63.49 currently now on eliquisref ills all set, no xarelto Atrial fibrillation 4943 6004 I48.0 stable Essential hypertension 88290973 I10 BP is okay Type 2 be betes mellitus 81738922 E11.9 stable Squamous c ell carcinoma of skin 324695913 C44.329 will set up with derm Cholecystitis 01582636 K 80.00 has to still f/u with gen surg Benign pro static hyperplasia with outflow obstruction 667518698 N40.1 start per hospital Depressive disorder 3548 9007 F32.0 cont Diffuse sp asm of esophagus 97301864 K22.4 cont Seizure disorder 1806844 02 G40.309 cont Subclinica l hyperthyroidism 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 will set up with recheck [id number] Erik Shaw DO [facility] [address],[place] [address] 08/11/2024 08:31:52 08/11/2024 12:07:55 Atrial fibrillation 54839831 I48.0 stable no issues Degenerati on of lumbar intervertebral disc 04330304 M51.369 Depression screening 171 612023 Z13.31 neg Essential hypertension 38320181 I10 overall stable saloni w bp and will cont current med Hypercholesterolemia 136 52830 E78.00 not having drawn anymore at 84 yrs Type 2 be betes mellitus 47255403 E11.9 a1c is now at 6.1 he was 6.3 again was 6.3 and prior was 6.7 and prior was 6.8 he was 7.1 relates not always following diet will have him cont to follow as needed and rechk 3 mo he cont to take his cannabis without incident sometimes bloipmnq8q is stable at 7.1 Health Concerns Section Related Observation LastModified by Organization Detai ls LastModified Time None Recorded Concern Status LastModified by Organization Details LastModified Time None Recorded Advance Directives Directive None Recorded Payers Insurance Date Sequence Insurance Name Policy Number Policy Daly Covered Member ID Daly Member ID Guarantor Name 10/07/2024 1 [place] [employer] Ferny Mckeon [id number] Ferny Mckeon 09/26/2024 2 [place] [id number] Ferny Mckeon [id number] Ferny Mckeon Notes Date Note Type Note Provider Name and Address Organization Details Recorded Time 023 text/ht ml ROS as noted in the HPI patient is evaluated via tele/video assessment per patient consent during current pandemic relates that he is still having trouble with eating states that after eating he would throw up and have dry heaves as well as headacheshas lost weight 10 lbs in the past month no trouble swallowingno bloating no abdomen distentiontold pt may be diabetic gastroparesis and or even gastritis Erik Shaw DO [address] [place] [address], [phone], [facility] 05/11/2023 14:37:36 024 text/ht ml ROS as noted in the HPI here at tele visitpatient is evaluated via tele/video assessment per patient consentduring current pandemicsame back pain xray showed severe spasm Erik Shaw DO [address] [place] [address], [phone], [facility] 06/05/2023 14:04:35 024 text/ht ml ROS as noted in the HPI bilateral ear lavageperformed by AG with consent from patienttolerated wellTMs visualizedno other issues JANY LONG [address] [place], [address], [facility] 08/21/2023 15:18:29 024 text/ht ml ROS as noted in the HPI hospital f/u the patient was d/c the patient is currently on keppra 500 mg, amlodipine 10 mg, metformin 500 mg BID, omeprazole 20 mg, atorvastatin 80 mg, tamsulosin 0.4 mg, cont mirtazapine 15 mg QD, cont lisinopril, cont omeprazole 20 mg BID the patient is overall doing welldoes endorse fatigue which is common after stroke adjusted his eliquis to 5 mg BID needs to have hypothyroidism levels checkedhis TSH level is low the patient is supervised by his son at his home still using the fentanyl patches JANY LONG [address] [place], [address], [place] [facility] 11/19/2023 13:53:28 025 text/ht ml Care Management - DiabetesReported by PatientHPIFor self care, patient reportsseeing eye doctor yearly for dilated eye exam,checking feet regularly,normal range of home blood sugars (in the low 100s), andno side effects from medications. For associated symptoms, patient reportssymptoms are usually well controlled,no fatigue,no dizziness,no excessive sweating,no headaches,no confusion,no increased thirst,no increased appetite,no increased urination,no blurred vision,no numbness of feet, andno calluses on feet. Care Management - HypertensionReported by PatientHPIFor self care, patient reportsnot under emotional stress. For severity, patient reportssymptoms are improvinganddoes not interfere with daily activities. For associated symptoms, patient reportsno dizziness,no lightheadedness,no chest pain,no shortness of breath,no palpitations,no edema,no calf muscle cramps,no blurred vision,no confusion,no headaches, andno fatigue. Care Management - Atrial FibrillationReported by PatientCare ManagementFor medications, patient reportscompliant with medication. For prior imaging, patient reportsechocardiogramandrecent ecg.Interim HistoryFor associated symptoms, patient reportsno dizziness,no chest pain,no easy bruisability, andno rapid heart rate. Back PainReported by PatientHPIFor location, patient reportspain is not radiating. For severity, patient reportsimproving. For associated symptoms, patient reportsno fever,no weak limbs,no numbness of the legs/feet,no tingling,no incontinence,no shortness of breath,no unintentional weight loss,no chills,no night sweats,no gait instability,no bowel/bladder symptoms, andno recent increase in stress. For previous injury, patient reportsno prior injury to backandno prior malignancy. Care Management - HyperlipidemiaReported by PatientHPIFor control, patient reportsusually well controlled,improving, andat goal. For complications, patient reportsno coronary artery disease,no heart attack,no cardiovascular disease,no pancreatitis, andno stroke.ROS as noted in the HPI patient is evaluated via tele/video assessment per patient consent during current pandemic relates is doing about the samestates he fell last week and injured his shoulder and backstates that he is feeling about the same and relates that he is noted to be on his usual medications Erik Shaw, DO [address] [facility], [place], [address], [facility] 08/11/2024 12:01:17
[2024-12-04 22:52] LABS: Alanine Aminotransferase 8 U/L (0-40); Albumin Level 4.3 g/dL (3.5-5.0); Alkaline Phosphatase 70 U/L (39-117); Anion Gap 13 (12-20); Aspartate Amino Transferase 19 U/L (5-37); Blood Urea Nitrogen 13 mg/dL (9-16); Calcium 9.1 mg/dL (8.4-10.2); Carbon Dioxide 22 mmol/L (22-29); Chloride 108 mmol/L (96-108); Creatinine Clr Calc Pharmacy 62.9; Estimated Glomerular Filt Rate > 60; Potassium 4.1 mmol/L (3.3-5.1); Sodium 139 mmol/L (135-145); Total Protein 6.3 g/dL (6.5-8.0)
[2024-12-04 23:10] VITALS: BP 117/65; PULSE 70; RESP 12; TEMP 36.3; O2SAT 97
[2024-12-05 01:28] VITALS: BP 117/64; PULSE 70; RESP 15; TEMP 36.3; O2SAT 97
[2024-12-05 03:41] VITALS: BP 117/64; PULSE 70; RESP 15; TEMP 36.3; O2SAT 97
== END 2024-12-05 03:41 | disposition home or self-care (01) ==
PROVIDERS: Emergency Provider Emergency Medicine; PCP Internal Medicine
DX: M79.601 Pain in right arm (principal); R33.9 Retention of urine, unspecified; I10 Essential (primary) hypertension; R25.1 Tremor, unspecified; I48.91 Unspecified atrial fibrillation; E11.9 Type 2 diabetes mellitus without complications; Z86.73 Personal history of transient ischemic attack (TIA), and cerebral infarction without residual deficits; Z87.891 Personal history of nicotine dependence
CPT/HCPCS: 36415; 51702; 70450; 73030; 73060; 80053; 81001; 85025; 93005; 99284; 99285

== ENCOUNTER → 2024-12-04 21:32 | Outpatient (BNV) | payer MEDICARE, SELFPAY | PROVIDERS: Emergency Provider Emergency Medicine; PCP Internal Medicine; Visit Provider General Practice | DX: R53.1 Weakness (principal); M25.511 Pain in right shoulder; M79.621 Pain in right upper arm | CPT/HCPCS: 70450; 73030; 73060 ==

== ENCOUNTER → 2024-12-04 23:02 | Outpatient (BNV) | payer MEDICARE, SELFPAY | PROVIDERS: Emergency Provider Emergency Medicine; PCP Internal Medicine; Visit Provider Internal Medicine Cardiovascular Disease | DX: I48.91 Unspecified atrial fibrillation (principal); I49.3 Ventricular premature depolarization | CPT/HCPCS: 93010 ==

== ENCOUNTER 2024-12-18 09:09 | Outpatient (AMB) | payer MEDICARE, SELFPAY ==
--- NOTE | 2024-12-18 09:30 | MHC.OFFVIS ---
Intake Visit Reasons: urinary retention (VT APPT) Intake Note: New Patient is present for ER follow up Urinary Retention Urology Rx:Tamsulosin , Amlodipine Blood Thinners:Eliquis PVR Handle Finisher Required: No Accompanied by: Daughter Allergies Penicillins Allergy (Intermediate, Verified 01/22/25 21:28) Rash HPI Comments Details: Joe is a pleasant male. He is a patient of Dr. Perkins. He is seen for the following urologic conditions - urinary retention Failed voiding trial in office Optimize on terazosin and finasteride Four week follow-up cystoscopy office Urinary retention Discovered during hospital admission 12/05 Found to have 300 cc with fecal loading Had previously been diagnosis BPH on tamsulosin Failed initial voiding trial in office PFSH Medical History Elevated bilirubin Fall BPH (benign prostatic hyperplasia) Stroke Afib Diabetes Essential hypertension History of pulmonary embolism Gallbladder sludge Surgical History Previous back surgery Family History Father Heart attack Social History Household Members: Family Household Members Other:: Son Housing: Condominium Do you presently have visiting nurse or other home services: No Alcohol intake: never Comment: IV Ofirmev infusing Patient Tobacco Use Status: Former Tobacco user Tobacco use type: Cigarette Years Smoked: 30 Second Hand Smoke Exposure: No Advance Directives Date on File: 12/23/24 service: No Review of Systems Const Denies chills and Denies fever(s) Card Reports no additional complaints and Denies syncope Resp Denies cough GI Denies abdominal pain and Denies heartburn Reports as per HPI and Denies change in libido Neuro Denies syncope Psych Denies change in libido Endo Denies change in libido Physical Exam Const General: cooperative, healthy appearing, comfortable and no acute distress Orientation/consciousness: patient oriented x3 HEENT Face and sinus: Yes normal facial exam Mouth: moist mucous membranes Neck Neck: Yes normal visual inspection, Yes full ROM and Yes trachea midline Chest Chest palpation & inspection: normal inspection of the chest Resp Effort & Inspection: normal respiratory effort, able to speak in complete sentences and no respiratory distress GI Inspection: Yes normal to inspection Back/Spine/Pelvis Cervical Spine: normal cervical lordosis Thoracic/Lumbar Spine: thoracic and lumbar spine normal to inspection Skin General skin exam: no rashes or lesions noted Neuro General: patient oriented x3, gait normal, tone normal and moves all extremities Extrem General: Yes normal to inspection and Yes capillary refill normal Office Procedures Bladder/Catheter Procedure Details: Patient presents to office for voiding trial s/p urinary retention episode. 120mls sterile water instilled through catheter, patient tolerated well. Removed 16fr al catheter, patient tolerated removal well. Patient not able to void. Reviewed with who has visit with patient. New 16fr al catheter 10ml balloon with plug inserted, patient tolerated well. 40674-Dqlaequijz of Bladder 40448-Tcingk Temporary Bladder Catheter Procedure code (CPT) selection complete Assessment & Plan Assessment & Plan (1) Urinary retention: Code(s): R33.9 - Retention of urine, unspecified Category: Medical (2) BPH (benign prostatic hyperplasia): Code(s): N40.0 - Benign prostatic hyperplasia without lower urinary tract symptoms Category: Medical (3) Chronic UTI (urinary tract infection): Code(s): N39.0 - Urinary tract infection, site not specified Category: Medical Plan 4 week follow-up check cystoscopy Orders: Orders AMB Bladder/Catheter Procedure 12/18/24 N40.0 - Benign prostatic hyperplasia without lower urinary tract symptoms, R33.8 - Other retention of urine Medications: New terazosin 5 mg PO BEDTIME 30 caps 1RF 30 days N40.0 - Benign prostatic hyperplasia without lower urinary tract symptoms finasteride 5 mg PO DAILY 30 tabs 1RF 30 days N40.0 - Benign prostatic hyperplasia without lower urinary tract symptoms Discontinued tamsulosin Discontinued Reason: Doctor's Order 0.4 mg PO BEDTIME 60 caps 0RF Patient Instructions: This note is constructed using voice recognition software. While every effort has been made to ensure accuracy manufacturing assembler errors may have been included. Imaging studies, laboratory and physical exam results were discussed and reviewed in detail. No major barriers to patient understanding were identified. An opportunity to ask questions regarding the treatment plan was provided. All questions were answered. The patient expressed understanding and agreement with the above treatment plan. The patient is aware they should contact our office by phone for worsening of their current condition or the appearance of new urologic symptoms. Compliance is encouraged with any medications and followup testing that is ordered. It is a privilege to participate in the urologic care of your patient. If you have any questions or concerns regarding treatment for the above conditions, or other urologic issues, please do not hesitate to contact me. The office telephone contact is [phone]. Sincerely, Dr David North MD, [facility] - Urology Compassionate Specialist Care for the Genitourinary System Coding Level of Care Code Est Pt Level 4 (80601) Diagnoses Urinary retention R33.9 BPH (benign prostatic hyperplasia) N40.0 Chronic UTI (urinary tract infection) N39.0 CPT Codes Bladder/Catheter Procedure - CPT: 30872-Xmjxxueuxv of Bladder ([id number]) Bladder/Catheter Procedure - CPT: 96128-Okujil Temporary Bladder Catheter ([id number])
--- OUTSIDE RECORDS SUMMARY | 2024-12-18 09:31 | XMS_ITS | Clinical Summary ---
Author Organization [facility] Address [address] [place] [address] Phone Care Team Providers Care Sergeant Of Officers Name Role Phone SuzyErik mojica Primary Care Provider [phone] Gregorio Erik Salomon Unavailable Ander Cruz MD Unavailable [phone] Allergies Active Allergy Reactions Criticality Noted [...] venous thrombosis) 03/03/2017 05/16/2017 Chronic anticoagulation 03/03/201707/2017 Encounters Date Type Department Care Team Description 12/16/2024 Transcribe Orders Virtual Department [address] [place] [id number] Arabella Ayala PA Solitary pulmonary nodule (Primary Dx) from Last 3 Months Social History Tobacco Use Types Packs/Day Years [...] your housing situation today? I have ilda alvarado 09/24/2023 How many times have you move [...] 2017 DIABETIC EYE EXAM 09/25/2023 COVID-19 VACCINE ( - 2023- season) 2024 07/22/2020, 06/24/2020 HEMOGLOBIN [...] EDT) SODIUM 137 133 - 146 mmol/L [facility] CHLORIDE 102 96 - 108 mmol/L [facility] POTASSIUM 5.1 3.3 - 5.1 mmol/L [facility] Comment:Specimen slightly he molyzed, result may be falsely elevated. CO2 22 21 - 35 mmol/L [facility] BUN 22(H) 6 - 19 mg/dL [facility] CREATININE 0.80 0.5 - 1.5 mg/dL [facility] GLUCOSE 138(H) 70 - 99 mg/dL [facility] CALCIUM 9.7 8.4 - 10.3 mg/dL [facility] EGFR 89 >59 mL/min/1.7 3m2 [facility] Comment:Estimated glomerular filtration rate calculated using the CKD-EPI refit equation. ANION GAP 18 10 - 20 mmol/L [facility] Blood 10/12/2023 11:5 9 AM EDT 10/12/2023 12:02 PM EDT us Tiffany Rodney PA-C LAB BLOOD ORDERABLES Final Result Performing Organization Address City/[facility]/ZIP Co de Phone Number [address] [address] * (ABNORMAL) Hemoglobin A1c (09/25/2023 5:41 AM EDT) HEMOGLOBIN A1C 5.9(H) 4.3 - 5.8 % [facility] 09/25/2023 5:41 AM EDT 09/25/2023 5:59 AM EDT us Allen Desouza DO LAB BLOOD ORDERABLES Final Res ult [address] [address] * (ABNORMAL) Outside LDL (09/23/2010) LDL - External 45(A) 50 - 250 mg/ml us Historical Provider LAB BLOOD ORDERABLES Carrie l Result from Last 3 Months or Most Recently Relevant to Health Maintenance Insurance BLUE CROSS MEDEX SUPPLEMENT MEDICARE PART A & B [employer] CROSS MEDEX SUPPLEMENT MEDICARE PART A & B [employer] MEDEX SUPPLEMENT MEDICARE PART A & B [employer] MEDEX SUPPLEMENT MEDICARE PART A & B [employer] MEDEX SUPPLEMENT MEDICARE PART A & B Member Subscriber Plan / Payer ( fective 2007-Present) Name:Ferny Barron Member ID:[id number] Relation to Subscriber:Self Name:Ferny Barron Subscriber ID:[id number] Payer ID:[id number] Group ID:Not on file Type:Medicare Address: [facility] AMS-Qi [facility] [address] [place] [address] [employer] CROSS MEDEX SUPPLEMENT MEDICARE PART A & B [employer] MEDEX SUPPLEMENT MEDICARE PART A & B [employer] MEDEX SUPPLEMENT MEDICARE PART A & B MEDEX SUPPLEMENT MEDICARE PART A & B MEDICARE PART A & B [employer] MEDEX SUPPLEMENT MEDICARE PART A & B [employer] MEDEX SUPPLEMENT MEDICARE PART A & B [employer] MEDEX SUPPLEMENT MEDICARE PART A & B [employer] MEDEX SUPPLEMENT MEDICARE PART A & B [facility] MEDEX SUPPLEMENT MEDICARE PART A & B [employer] MEDEX SUPPLEMENT MEDICARE PART A & B [employer] MEDEX SUPPLEMENT MEDICARE PART A & B [employer] MEDEX SUPPLEMENT MEDICARE PART A & B [employer] CROSS MEDEX SUPPLEMENT Advance Directives For more information, please contact: [phone] (9AM - 5PM [facility], Sunday-Sunday) Documents on File Type Date Recorded 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 09/28/2023 4:34 PM * Full Code (Latest Code Status on File) Date Activated Date Inactivated Comments 09/24/2023 7:10 AM Question Answer Comments Code Status Confirmed With: Patient Code Status Communicated To: Inpatient Attending Care Teams Sergeant Of Officers Relationship Specialty Start Date End Date Erik Perkins DO [email or web address] PCP - General Internal Medicine 05/21/20 Erik Perkins DO Internal Medicine 05/21/20 Ander Cruz MD [address] [place] [id number] [email or web address] Hematology and Oncology 05/15/17 Additional Source Comments The information contained in this document represents components of the legal health record. It is not the complete legal health record.[facility]
== END 2024-12-18 10:27 | disposition home or self-care (01) ==
LOC: HO.HUSH 09:10
PROVIDERS: PCP Internal Medicine; Visit Provider Urology
DX: N40.0 Benign prostatic hyperplasia without lower urinary tract symptoms (principal); R33.8 Other retention of urine
CPT/HCPCS: 51700

== ENCOUNTER → 2024-12-18 09:09 | Outpatient (BNVA) | payer MEDICARE, SELFPAY | PROVIDERS: PCP Internal Medicine; Visit Provider Urology | DX: N40.1 Benign prostatic hyperplasia with lower urinary tract symptoms (principal); R33.8 Other retention of urine | CPT/HCPCS: 51700; 99202 ==

== ENCOUNTER 2024-12-22 16:16 | Emergency (ER) | payer MEDICARE, SELFPAY ==
[2024-12-22] VITALS (10 sets, daily range): BP systolic 91–119; BP diastolic 51–62; PULSE 70–72; RESP 12–17; TEMP 36–36.7; O2SAT 96–98; BMI 21.7
--- NOTE | 2024-12-22 16:30 | MHC.EDTECH ---
100mL of urine drained from personal al
--- NOTE | 2024-12-22 16:43 | MHC.EDTECH ---
Pt brought in via EMS with only underwear on, pt placed in hospital gown, hall monitor on, vitals obtained, fall risk precautions placed
--- NOTE | 2024-12-22 16:48 | ECG_ITS ---
Test Reason : FALL Blood Pressure : */* mmHG Vent. Rate : 70 BPM Atrial Rate : 326 BPM P-R Int : * ms QRS Dur : 68 ms QT Int : 412 ms P-R-T Axes : * 73 263 degrees QTcB Int : 444 ms Ventricular-paced rhythm Abnormal ECG When compared with ECG of 04-Dec-2024 23:02, No significant change was found Referred By: Generic ED Physician Electronically Signed By: Eugenio Adams
[2024-12-22 17:04] LABS: Appearance Urine Cloudy; Glucose Urine UA Negative (Negative); PH 5.5 (5.0-9.0); Specific Gravity - Urine 1.015 (1.005-1.025); UMIC TRIGGER UACC YES
[2024-12-22 17:06] LABS: UACC Culture Trigger YES
[2024-12-22 17:39] LABS: MANUAL DIFF FLAG NO
[2024-12-22 17:59] LABS: Alanine Aminotransferase < 6 U/L (0-40); Albumin Level 3.8 g/dL (3.5-5.0); Alkaline Phosphatase 72 U/L (39-117); Anion Gap 12 (12-20); Aspartate Amino Transferase 15 U/L (5-37); Blood Urea Nitrogen 11 mg/dL (9-16); Calcium 9.0 mg/dL (8.4-10.2); Carbon Dioxide 27 mmol/L (22-29); Chloride 105 mmol/L (96-108); Creatinine Clr Calc Pharmacy 58.8; Estimated Glomerular Filt Rate > 60; Potassium 4.3 mmol/L (3.3-5.1); Sodium 140 mmol/L (135-145); Total Protein 5.9 g/dL (6.5-8.0)
[2024-12-22 18:01] LABS: Hematocrit 36.2 % (42.0-52.0); Hemoglobin 12.4 g/dl (14.0-18.0); Imm Gran Abs Auto 0.03 X10*3/uL (0.00-0.03); Imm Gran Pct Auto 0.4 % (0.0-0.4); Lymphocytes Absolute Auto 2.3 X10*3/uL (1.2-4.9); Mean Corpuscular HGB Conc 34.3 g/dl (31.0-36.0); Mean Corpuscular Hemoglobin 30.8 pg (27.0-33.0); Mean Corpuscular Volume 90.0 fL (80.0-98.0); NRBC Abs Auto 0.000 X10*3/uL (0.0-0.012); NRBC Pct Auto 0.0 /100WBC (0.0-0.2); Platelet Count 267 X10*3/uL (160-400); Red Blood Count 4.02 X10*6/uL (4.60-5.80); White Blood Count 7.9 X10*3/uL (4.8-10.8)
[2024-12-22 18:07] LABS: Troponin-I High Sensitivity < 2.7 ng/L (<3.5-35.0)
--- NOTE | 2024-12-22 18:16 | ED.GENADULT ---
HPI - General Adult General Chief complaint: Fall Stated complaint: Fell OOB, + blood thinners Time Seen by Provider: 12/22/24 18:16 History of Present Illness ED Provider: Jina HAN narrative: The patient is an 84-year-old male with a recent history of urinary retention. He has had a urinary catheter for about 3 weeks. He was brought to the hospital today by ambulance after he had fallen at home. He lives with a son. He manages his urinary catheter with a plug in the catheter during the daytime. He connects the catheter to a bag at night. This afternoon he felt an urge to urinate and went to the bathroom and released urine through the catheter. He replace the plug. Leaving the bathroom he tripped and fell and landed on his hands and knees. He did not hit his head. He did not faint. He did not lose consciousness. This was apparently the 3rd fall he had had in the last 24 hours. At this point his son called 911 and he was brought to the hospital. The son feels that he is weaker than he has been recently. There has been no fever. The patient is currently denying any significant symptoms. He has no headache, no chest pain, no abdominal pain, no nausea, no vomiting, no fever, sweats, chills. Related Data Home Medications ?Medication ?Instructions ?Recorded ?Confirmed amlodipine 10 mg tablet 10 mg PO DAILY 10/14/23 12/01/24 lisinopril 10 mg tablet 10 mg PO DAILY 10/14/23 12/01/24 fentanyl 100 mcg/hr transdermal 100 mcg topical Q72H 12/01/24 12/01/24 patch fentanyl 50 mcg/hr transdermal 50 mcg topical Q72H 12/01/24 12/01/24 patch levetiracetam 500 mg tablet 500 mg PO DAILY 12/01/24 12/01/24 mirtazapine 15 mg tablet 15 mg PO DAILY PRN Sleep 12/01/24 12/01/24 Previous Rx's ?Medication ?Instructions ?Recorded metformin 500 mg tablet 500 mg PO BIDWMEAL #60 tabs 10/18/23 omeprazole 20 mg capsule,delayed 20 mg PO BID@0630,1630 #0 caps 10/18/23 release apixaban 5 mg tablet (Eliquis) 5 mg PO BID #0 tabs 10/20/23 docusate sodium 100 mg capsule 100 mg PO BID #60 caps 12/04/24 magnesium hydroxide 400 mg/5 mL 30 ml PO DAILY PRN Constipation 12/04/24 oral suspension (Milk of Magnesia) #200 mL polyethylene glycol 3350 17 gram 17 g PO BID PRN constipation #120 12/04/24 oral powder packet ea finasteride 5 mg tablet 5 mg PO DAILY 30 days #30 tabs 12/18/24 terazosin 5 mg capsule 5 mg PO BEDTIME 30 days #30 caps 12/18/24 cefaclor 250 mg capsule 250 mg PO BID #14 caps 12/23/24 Allergies Allergy/AdvReac Type Severity Reaction Status Date / Time Penicillins Allergy Intermediate Rash Verified 12/22/24 16:28 Review of Systems Review of Systems: Yes all other systems are reviewed and are negative [facility] Past Medical History Medical History (Updated 12/24/24 @ 00:01 by Mark Taylor) Elevated bilirubin Fall BPH (benign prostatic hyperplasia) Stroke Afib Diabetes Essential hypertension History of pulmonary embolism Gallbladder sludge Surgical History Previous back surgery Family History Family History Father Heart attack Social History Social History Household Members: Family Household Members Other:: Son [facility] Do you presently have visiting nurse or other home services: No Alcohol intake: never Comment: IV Ofirmev infusing Patient Tobacco Use Status: Former Tobacco user Tobacco use type: Cigarette Years Smoked: 30 Smoked in Last 30 Days: No Second Hand Smoke Exposure: No Use of substances other than those prescribed or required for medical reasons: No Advance Directives: No Advance Directives Information Provided: No Advance Directives Date on File: 10/13/23 service: No Physical Exam ED Vital Signs: Vital Signs - 24 hr 12/22/24 16:28 12/22/24 18:54 12/22/24 19:34 Temperature 98.1 F 97.2 F Pulse Rate 70 70 70 Respiratory Rate 16 14 13 Blood Pressure 119/62 107/61 101/54 L Pulse Oximetry 97 96 96 Oxygen Delivery Method Room Air Room Air Room Air 12/22/24 20:08 12/22/24 20:46 12/22/24 20:53 Temperature 97.0 F Pulse Rate 70 72 70 Respiratory Rate 12 13 14 Blood Pressure 101/62 102/54 L 104/53 L Pulse Oximetry 96 97 96 Oxygen Delivery Method Room Air Room Air Room Air 12/22/24 21:07 12/22/24 21:22 12/22/24 22:54 Temperature 96.8 F Pulse Rate 70 70 70 Respiratory Rate 17 17 14 Blood Pressure 92/52 L 94/52 L 91/51 L Pulse Oximetry 98 Oxygen Delivery Method Room Air Room Air 12/23/24 00:47 12/23/24 01:27 12/23/24 01:35 Temperature 96.8 F Pulse Rate 70 70 Respiratory Rate 14 20 Blood Pressure 92/60 94/57 L 109/66 Pulse Oximetry 99 98 99 Oxygen Delivery Method Room Air Room Air Room Air 12/23/24 03:34 12/23/24 06:33 12/23/24 08:10 Temperature 97.9 F Pulse Rate 70 70 70 Respiratory Rate 11 L 14 12 Blood Pressure 102/67 120/72 Pulse Oximetry 100 98 Oxygen Delivery Method Room Air Room Air 12/23/24 10:40 12/23/24 14:00 Temperature 97.5 F 96.7 F L Pulse Rate 70 70 Respiratory Rate 17 16 Blood Pressure 109/61 108/63 Pulse Oximetry 97 99 Oxygen Delivery Method Room Air Room Air BMI result Body Mass Index 21.7 Const Other: The patient is a very frail looking 84-year-old who was awake and alert. He looks quite weak but is appropriately oriented and does not seem min acute pain or respiratory distress. HENMT Other: Face is symmetrical. Mucous membranes unremarkable. 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 He looks frail. However eye movements are intact, face is symmetrical, speech is clear, he has symmetrical strength in all extremities. No focal findings. Extrem Other: There is no calf swelling or tenderness. No asymmetry. No peripheral edema. Course Course Course Narrative: Time: 14:18 Date: 12/23/24 Provider: Kaitlin Wyatt DO Physician observation ended at 1500. Patient has been cleared for discharge by PT/CM. to go to [facility] for [facility] Medications Administered Discontinued Medications Generic Name Dose Route Start Last Admin Trade Name Heide PRN Reason Stop Dose Admin Amlodipine Besylate 10 mg 12/23/24 09:00 12/23/24 08:12 Amlodipine Besylate 10 Mg Tablet PO 10 mg DAILY SHANNA Administration Protocol Ceftriaxone Sodium 1 gm 12/22/24 18:46 12/22/24 19:21 Ceftriaxone Sodium 1 Gm Vial IVPUSH 12/22/24 18:47 1 gm ONCE ONE Administration Cefuroxime Axetil 250 mg 12/23/24 09:00 12/23/24 08:12 Cefuroxime Axetil 250 Mg Tablet PO 250 mg BID SHANNA Administration Sodium Chloride 500 mls @ 500 mls/hr 12/22/24 19:00 12/22/24 20:42 Ns IV 12/22/24 19:59 Infused .Q1H SHANNA Infusion Lactated Ringer's 1,000 mls @ 999 mls/hr 12/23/24 01:32 12/23/24 06:52 Lr IV 12/23/24 02:32 Infused .Q1H1M ONE Infusion Levetiracetam 500 mg 12/23/24 09:00 12/23/24 08:12 Levetiracetam 500 Mg Tablet PO 500 mg DAILY SHANNA Administration Lidocaine HCl 10 ml 12/22/24 19:14 12/22/24 19:21 Lidocaine Hcl 2 % Urojet 10 Ml Jel.Pf.Stephon TOPICAL 12/22/24 19:15 10 ml ONCE ONE Administration Lisinopril 10 mg 12/23/24 09:00 12/23/24 08:12 Lisinopril 10 Mg Tablet PO 10 mg DAILY SHANNA Administration Protocol Metformin HCl 500 mg 12/23/24 08:00 12/23/24 08:12 Metformin Hcl 500 Mg Tablet PO 500 mg BIDWM SHANNA Administration Mirtazapine 15 mg 12/22/24 22:45 12/22/24 23:01 Mirtazapine 15 Mg Tablet PO 15 mg BEDTIME SHANNA Administration Medical Decision Making Medical Decision Making [facility] Narrative: The patient is an 84-year-old male who presents to the ER after a fall. Apparently this was the 3rd fall in 2 days. There was no head injury or other significant injuries in any of these falls. The family feels that he is looking much frailer over the last 48 hours. His urinalysis suggests a UTI. However he is afebrile in his labs do not suggest a systemic infection. The patient is catheter was replaced with a new catheter and he was given a dose of IV ceftriaxone. He was also given some IV fluids. Since he has had 3 falls in the last 24 hours he will be kept in the emergency room overnight for evaluation by physical therapy. Case management will also be consulted. The patient will be placed in physician observationas of 9:00PM 12/22/2024. Lab Data 12/22/24 17:34 12/22/24 17:34 Labs: Lab Results 12/22/24 12/22/24 12/22/24 Range/Units 16:51 17:33 17:34 WBC 7.9 (4.8-10.8) X10*3/uL RBC 4.02 L (4.60-5.80) X10*6/uL Hgb 12.4 L (14.0-18.0) g/dl Hct 36.2 L (42.0-52.0) % MCV 90.0 (80.0-98.0) fL MCH 30.8 (27.0-33.0) pg MCHC 34.3 (31.0-36.0) g/dl RDW 13.9 (11.0-16.0) % Plt Count 267 D (160-400) X10*3/uL MPV 9.5 (9.4-12.4) fL Immature Gran % (Auto) 0.4 (0.0-0.4) % Neut % (Auto) 64.1 (45-73) % Lymph % (Auto) 28.8 (20-40) % [place] % (Auto) 5.7 (2-11) % Eos % (Auto) 0.6 (0-4) % Baso % (Auto) 0.4 (0-2) % Lymph # (Auto) 2.3 (1.2-4.9) X10*3/uL [place] # (Auto) 0.5 (0.1-1.2) X10*3/uL Eos # (Auto) 0.1 (0.0-0.4) X10*3/uL Baso # (Auto) 0.0 (0.0-0.2) X10*3/uL Abs Immat Gran (auto) 0.03 (0.00-0.03) X10*3/uL Absolute Neuts (auto) 5.1 (2.0-8.3) x10*3/uL Absolute Nucleated RBC 0.000 (0.0-0.012) X10*3/uL Nucleated RBC % (auto) 0.0 (0.0-0.2) /100WBC Sodium 140 (135-145) mmol/L Potassium 4.3 (3.3-5.1) mmol/L Chloride 105 (96-108) mmol/L Carbon Dioxide 27 (22-29) mmol/L Anion Gap 12 (12-20) BUN 11 (9-16) mg/dL Creatinine 0.76 (0.5-1.4) mg/dL Estim Creat Clear Calc 58.8 Estimated GFR > 60 POC Glucose (60-115) mg/dL Random Glucose 106 (60-115) mg/dL Lactic Acid (0.5-2.0) mmol/L Calcium 9.0 (8.4-10.2) mg/dL Total Bilirubin 0.9 (0.0-1.0) mg/dL AST 15 (5-37) U/L ALT < 6 (0-40) U/L Alkaline Phosphatase 72 (39-117) U/L Troponin I High Sens < 2.7 D (<3.5-35.0) ng/L Total Protein 5.9 L (6.5-8.0) g/dL Albumin 3.8 (3.5-5.0) g/dL Urine Color Yellow Urine Appearance Cloudy Urine pH 5.5 (5.0-9.0) Ur Specific [place] 1.015 (1.005-1.025) Urine Protein 30 (1+) H (Neg-Trace) mg/dL Urine Glucose (UA) Negative (Negative) mg/dL Urine Ketones Trace (Negative) mg/dL Urine Blood Large (3+) H (Negative) Urine Nitrite Positive H (Negative) Ur Leukocyte Esterase Large (3+) H (Negative) Urine RBC >20 H (0-2) /HPF Urine WBC >50 H (0-5) /HPF Ur Squamous Epith Cells 0-2 (0-2) /HPF Urine Bacteria 2+ (None Seen) Hyaline Casts 0-2 (0-2) /LPF 12/22/24 12/22/24 Range/Units 19:08 22:34 WBC (4.8-10.8) X10*3/uL RBC (4.60-5.80) X10*6/uL Hgb (14.0-18.0) g/dl Hct (42.0-52.0) % MCV (80.0-98.0) fL MCH (27.0-33.0) pg MCHC (31.0-36.0) g/dl RDW (11.0-16.0) % Plt Count (160-400) X10*3/uL MPV (9.4-12.4) fL Immature Gran % (Auto) (0.0-0.4) % Neut % (Auto) (45-73) % Lymph % (Auto) (20-40) % [place] % (Auto) (2-11) % Eos % (Auto) (0-4) % Baso % (Auto) (0-2) % Lymph # (Auto) (1.2-4.9) X10*3/uL [place] # (Auto) (0.1-1.2) X10*3/uL Eos # (Auto) (0.0-0.4) X10*3/uL Baso # (Auto) (0.0-0.2) X10*3/uL Abs Immat Gran (auto) (0.00-0.03) X10*3/uL Absolute Neuts (auto) (2.0-8.3) x10*3/uL Absolute Nucleated RBC (0.0-0.012) X10*3/uL Nucleated RBC % (auto) (0.0-0.2) /100WBC Sodium (135-145) mmol/L Potassium (3.3-5.1) mmol/L Chloride (96-108) mmol/L Carbon Dioxide (22-29) mmol/L Anion Gap (12-20) BUN (9-16) mg/dL Creatinine (0.5-1.4) mg/dL Estim Creat Clear Calc Estimated GFR POC Glucose 198 H (60-115) mg/dL Random Glucose (60-115) mg/dL Lactic Acid 1.0 (0.5-2.0) mmol/L Calcium (8.4-10.2) mg/dL Total Bilirubin (0.0-1.0) mg/dL AST (5-37) U/L ALT (0-40) U/L Alkaline Phosphatase (39-117) U/L Troponin I High Sens (<3.5-35.0) ng/L Total Protein (6.5-8.0) g/dL Albumin (3.5-5.0) g/dL Urine Color Urine Appearance Urine pH (5.0-9.0) Ur Specific [place] (1.005-1.025) Urine Protein (Neg-Trace) mg/dL Urine Glucose (UA) (Negative) mg/dL Urine Ketones (Negative) mg/dL Urine Blood (Negative) Urine Nitrite (Negative) Ur Leukocyte Esterase (Negative) Urine RBC (0-2) /HPF Urine WBC (0-5) /HPF Ur Squamous Epith Cells (0-2) /HPF Urine Bacteria (None Seen) Hyaline Casts (0-2) /LPF Discharge Plan Discharge Clinical Impression: Acute UTI, Falls Patient Disposition: Xfer Inpatient Rehab Fac Transfer Details: TO: [facility]ay[facility] Instructions: Urinary Tract Infection in Men (ED) Additional Instructions: return for worsening falls, weakness, confusion, vomiting or any other concerns finish antibiotics On a cephalosporin?antibiotic, softer bowel movements are to be expected. Call your provider if you move your bowels more than 4 times a day, your bowel movements are almost all liquid, or you get a rash.?? Prescriptions: New cefaclor 250 mg capsule 250 mg PO BID Qty: 14 0RF No Action amlodipine 10 mg tablet 10 mg PO DAILY lisinopril 10 mg tablet 10 mg PO DAILY omeprazole 20 mg Capsule,Delayed Release(Dr/Ec) 20 mg PO BID@0630,1630 Qty: 0 0RF metformin 500 mg tablet 500 mg PO BIDWMEAL Qty: 60 0RF Eliquis 5 mg Tablet 5 mg PO BID Qty: 0 0RF levetiracetam 500 mg tablet 500 mg PO DAILY mirtazapine 15 mg tablet 15 mg PO DAILY PRN (Reason: Sleep) fentanyl 50 mcg/hr patch 72 hour 50 mcg topical Q72H fentanyl 100 mcg/hr patch 72 hour 100 mcg topical Q72H polyethylene glycol 3350 17 gram Powder In Packet 17 g PO BID PRN (Reason: constipation) Qty: 120 0RF magnesium hydroxide [Milk of Magnesia] 400 mg/5 mL Suspension 30 ml PO DAILY PRN (Reason: Constipation) Qty: 200 0RF docusate sodium 100 mg Capsule 100 mg PO BID Qty: 60 0RF terazosin 5 mg capsule 5 mg PO BEDTIME 30 Days Qty: 30 1RF finasteride 5 mg tablet 5 mg PO DAILY 30 Days Qty: 30 1RF Referrals: [facility] [Outside] Erik Perkins MD [Physician, Internal Medicine] Interventions: ED Discharge Assessment Last Done: 12/23/24 15:17 Discharge Date/Time: 12/23/24 15:22 Print Language: Kazakh
[2024-12-22] MEDS: Lidocaine HCl 2 % Urojet 10 ML JEL.PF.APP TOPICAL (19:21)
--- NOTE | 2024-12-22 19:27 | PC.NURSE ---
Took over care from Gavino Singh at 19:00, medicated per jul.
--- NOTE | 2024-12-22 19:55 | MHC.EDTECH ---
100mL of urine drained from personal al
--- NOTE | 2024-12-22 22:02 | MHC.CM.ED ---
CM received consult. Reviewed medical record and previous hospitalization. Attempted to meet with patient at 10 pm. Sleeping soundly. Did not call son/daughter do to lateness of hour. PT is pending for the morning. Per primary RN, son did speak with patient about possible rehab. Pt has UTI and fall. Recent urinary retention with F/C placement. Lives with son. Uses a walker, however did not use when he fell today. [place] [facility] Was [facility] with ? [facility]. [facility] unclear if [facility] actually accepted patient. Could provider PT but not SN. No other referrals placed. Will question in [facility]. Will place local referrals. Pt has a qualifying stay. CM will speak with patient when he wakes. CM will call and speak with family in the am.
--- NOTE | 2024-12-22 23:02 | PC.NURSE ---
pt repositioned for comfort and medicated per mar.
--- NOTE | 2024-12-22 23:04 | PC.NURSE ---
provider aware of poc, no new orders at this time.
[2024-12-23] VITALS (9 sets, daily range): BP systolic 92–120; BP diastolic 57–72; PULSE 70; RESP 11–20; TEMP 35.9–36.6; O2SAT 97–100
--- NOTE | 2024-12-23 01:37 | PC.NURSE ---
Notified provider of soft blood pressure will continue to monitor.
[2024-12-23] MEDS: Lactated Ringers 1,000 ML 999 ML IV (01:39)
--- NOTE | 2024-12-23 06:14 | PC.NURSE ---
al output 300
--- NOTE | 2024-12-23 08:32 | PC.NURSE ---
assumed care of patient at 0700, patient is alert and awake. sat up and ate breakfast. patient moved into hospital bed with walker and PT. patient appears to be comfortable at this time, resp even andunlabored. VSS
[2024-12-23 10:34] LABS: Glucose, Whole Blood 198 mg/dL (60-115)
--- NOTE | 2024-12-23 11:42 | PC.NURSE ---
Reprt to DERICK Juarez
--- NOTE | 2024-12-23 12:04 | PC.NURSE ---
Addendum entered by Tuyet Ferraro RN 12/23/24 12:06: Patient is an 84-year-old male with a recent history of urinary retention. He has had a urinary catheter for about 3 weeks. He was brought to the hospital today by ambulance after he had fallen at home. He lives with a son. He manages his urinary catheter. Leaving the bathroom he tripped and fell and landed on his hands and knees. This was apparently the 3rd fall he had had in the last 24 hours. c/o increased weakness. Patient alert and oriented, but fatigued. Respirations even and non-labored. Abdomen flat, soft non-tender with positive bowel sounds. Childs patent and draining straw colored urine. Positive pedal pulses with no edema. Original Note: Medical History Elevated bilirubin Fall BPH (benign prostatic hyperplasia) Stroke Afib Diabetes Essential hypertension History of pulmonary embolism Gallbladder sludge
--- NOTE | 2024-12-23 14:24 | MHC.CM.ED ---
[facility] able to offer a bed. Patient can leave at 3pm. [facility]on HARDWICK booked. Med [facility] with chart. Patient, Latrice SEPULVEDA and Dr Wyatt aware. Patient's son, Ferny, made aware via telephone at [phone]. Continue to monitor for d/c needs.
== END 2024-12-23 15:22 ==
PROVIDERS: Emergency Provider Emergency Medicine
DX: N39.0 Urinary tract infection, site not specified (principal); I10 Essential (primary) hypertension; Z91.81 History of falling; Z86.73 Personal history of transient ischemic attack (TIA), and cerebral infarction without residual deficits; Z79.899 Other long term (current) drug therapy; Z95.0 Presence of cardiac pacemaker; Z87.448 Personal history of other diseases of urinary system
CPT/HCPCS: 36415; 51702; 80053; 81001; 82947; 83605; 84484; 85025; 87040; 87086; 87088; 87186; 93005; 96361; 96374; 97162; 99285; J0696; J7120

== ENCOUNTER → 2024-12-22 16:48 | Outpatient (BNV) | payer MEDICARE, SELFPAY | PROVIDERS: Emergency Provider Emergency Medicine; Visit Provider Internal Medicine Cardiovascular Disease | DX: R94.31 Abnormal electrocardiogram [ECG] [EKG] (principal); Z95.0 Presence of cardiac pacemaker | CPT/HCPCS: 93010 ==

== ENCOUNTER 2025-01-16 11:05 | Outpatient (AMB) | payer MEDICARE, SELFPAY ==
--- NOTE | 2025-01-16 11:18 | A.OFFVIS_ITS ---
Intake Visit Reasons: cysto Intake Note: Patient is present for: cystoscopy Urology Rx:finasteride, amlodipine, terazosin Blood Thinners:Eliquis Wood Dowel Machine Operator Required: No Accompanied by: Daughter Allergies Penicillins Allergy (Intermediate, Verified 01/16/25 11:19) Rash HPI Comments Details: Joe is a pleasant male. He is a patient of Dr. Perkins. He is seen for the following urologic conditions - urinary retention Failed last voiding trial in office Optimized on terazosin and finasteride Here for cystoscopy with voiding trial Cystoscopy showed open bladder neck with grade 3 trabeculated bladder Past voiding trial - voided 200 cc 6 week follow-up nursing PVR Six-month follow-up office Continue with finasteride and terazosin Urinary retention Discovered during hospital admission 12/05 Found to have 300 cc with fecal loading Had previously been diagnosis BPH on tamsulosin Failed initial voiding trial in office [facility] Medical History (Updated 01/16/25 @ 11:56 by David North MD) Elevated bilirubin Fall BPH (benign prostatic hyperplasia) Stroke Afib Diabetes Essential hypertension History of pulmonary embolism Gallbladder sludge Surgical History Previous back surgery Family History Father Heart attack Social History Household Members: Family Household Members Other:: Son Housing: Condominium Do you presently have visiting nurse or other home services: No Alcohol intake: never Comment: IV Ofirmev infusing Patient Tobacco Use Status: Former Tobacco user Tobacco use type: Cigarette Years Smoked: 30 Second Hand Smoke Exposure: No Advance Directives Date on File: 10/13/23 service: No Review of Systems Const Denies chills and Denies fever(s) Card Reports no additional complaints and Denies syncope Resp Denies cough GI Denies abdominal pain and Denies heartburn Reports as per HPI and Denies change in libido Neuro Denies syncope Psych Denies change in libido Endo Denies change in libido Physical Exam Const General: cooperative, healthy appearing, comfortable and no acute distress Orientation/consciousness: patient oriented x3 HEENT Face and sinus: Yes normal facial exam Mouth: moist mucous membranes Neck Neck: Yes normal visual inspection, Yes full ROM and Yes trachea midline Chest Chest palpation & inspection: normal inspection of the chest Resp Effort & Inspection: normal respiratory effort, able to speak in complete sentences and no respiratory distress GI Inspection: Yes normal to inspection Back/Spine/Pelvis Cervical Spine: normal cervical lordosis Thoracic/Lumbar Spine: thoracic and lumbar spine normal to inspection Skin General skin exam: no rashes or lesions noted Neuro General: patient oriented x3, gait normal, tone normal and moves all extremities Extrem General: Yes normal to inspection and Yes capillary refill normal Office Procedures Cystoscopy Consent Discussed risk and benefit or proposed procedure with the patient. Information consent for procedure given to the patient. Discussed technical aspects, risks, benefits and alternatives in full. Addressed all of the patient's questions and concerns regarding the procedure. The patient demonstrated knowledge and understanding. They wish to proceed with this procedure. Preparation The patient was prepped in the usual manner. A appeals referee was present and in the room. Genitalia was prepped with betadine solution in a sterile manner. Lidocaine Jelly 2% was placed into the urethra and 16Fr flexible Olympus cystoscope was inserted into the meatus after adequate lubrication. Procedure Cystoscopy performed using a disposable RadcomvTerra Tech digital 16 Slovak cystoscope. Meatus circumcised Urethra anterior and posterior urethra normal Prostatic Urethra unremarkable - small prostate Bladder examination with retroflexion of cystoscope Bladder Orifices normal shape and position Bladder Capacity Normal Trabeculations grade 3 Cellule Formation yes Diverticulum Formation no Mucosal Erythema diffuse erythema secondary to catheter Bladder Tumor None PVR performed postprocedure [id number] Procedure code (CPT) selection complete Office Meds lidocaine HCl 2 % mucosal jelly in applicator Performing Provider: David North MD [facility] Documented (not given) by: David North MD on 01/16/25 11:58 Dose Route Admin Location Dispensed Lot Number Expiration Date NDC Nutrition Technician 10 mL intra-urethral mL nitrofurantoin monohydrate/macrocrystals 100 mg capsule Performing Provider: David North MD Performing Location: [facility] Documented (not given) by: David North MD on 01/16/25 11:58 Dose Route Admin Location Dispensed Lot Number Expiration Date NDC Nutrition Technician 100 mg PO cap Assessment & Plan Assessment & Plan (1) Urinary retention: Code(s): R33.9 - Retention of urine, unspecified Category: Medical (2) Chronic UTI (urinary tract infection): Code(s): N39.0 - Urinary tract infection, site not specified Category: Medical Plan Continue medications Six week follow-up nursing PVR Six-month follow-up office Orders: Orders AMB Cystoscopy Today N40.0 - Benign prostatic hyperplasia without lower urinary tract symptoms, R33.8 - Other retention of urine, R33.9 - Retention of urine, unspecified Medications: New lidocaine HCl 2% 10 mL intra-urethral ONCE 10 mL 0RF N40.0 - Benign prostatic hyperplasia without lower urinary tract symptoms, R33.8 - Other retention of urine, R33.9 - Retention of urine, unspecified nitrofurantoin monohyd/m-cryst 100 mg 100 mg PO ONCE 1 cap 0RF N40.0 - Benign prostatic hyperplasia without lower urinary tract symptoms, R33.8 - Other retention of urine, R33.9 - Retention of urine, unspecified levofloxacin 500 mg PO DAILY 5 tabs 0RF 5 days Changed From finasteride 5 mg PO DAILY 30 days 30 tabs 1RF N40.0 - Benign prostatic hyperplasia without lower urinary tract symptoms To finasteride 5 mg PO DAILY 90 tabs 1RF 90 days N40.0 - Benign prostatic hyperplasia without lower urinary tract symptoms From terazosin 5 mg PO BEDTIME 30 days 30 caps 1RF N40.0 - Benign prostatic hyperplasia without lower urinary tract symptoms To terazosin 5 mg PO BEDTIME 90 caps 1RF 90 days N40.0 - Benign prostatic hyperplasia without lower urinary tract symptoms Patient Instructions: This note is constructed using voice recognition software. While every effort has been made to ensure accuracy biodiesel processing technician errors may have been included. Imaging studies, laboratory and physical exam results were discussed and reviewed in detail. No major barriers to patient understanding were identified. An opportunity to ask questions regarding the treatment plan was provided. All questions were answered. The patient expressed understanding and agreement with the above treatment plan. The patient is aware they should contact our office by phone for worsening of their current condition or the appearance of new urologic symptoms. Compliance is encouraged with any medications and followup testing that is ordered. It is a privilege to participate in the urologic care of your patient. If you have any questions or concerns regarding treatment for the above conditions, or other urologic issues, please do not hesitate to contact me. The office telephone contact is [phone]. Sincerely, Dr David North MD, [facility] - Urology Compassionate Specialist Care for the Genitourinary System Coding Level of Care Code Est Pt Level 4 (63611) Complex EM visit Add On G2211 Diagnoses Urinary retention R33.9 Chronic UTI (urinary tract infection) N39.0 CPT Codes Cystoscopy - CPT: 80428-[id number] ([id number])
--- OUTSIDE RECORDS SUMMARY | 2025-01-16 12:12 | XMS_ITS | Encounter Summary ---
Author Organization Located Within [facility] Address [address] [place] [address] Phone Care Team Providers Care Molding Room Supervisor Name Role Phone Erik Perkins Primary Care Provider SuzyErik mojica DO Unavailable Ander Cruz MD Unavailable [phone] Encounter Details Date Type Department Care Team (Late st Contact Info) Description 10/25/2023 Procedure Pass OR Admitting Dept - Virtual Department [address] [place] [address] Social History Tobacco Use Types Packs/Day Years Used Date Smoking Tobacco: Never Smokeless Tobacco: Never Alcohol Use Standard Drinks/Week Comments Never 0 [...] Orientation Straight 07/30/2018 1: 17 PM EDT documented as of this encounter Plan of Treatment Not on file documented as of this encounter Visit Diagnoses Not on filedocumented in this encounter Care Teams Molding Room Supervisor Relationship Specialty Start Date End Date Erik Perkins DO PCP - General Internal Medicine 05/21/20 Erik Perkins DO Internal Medicine 05/21/20 Ander Cruz MD [address] [place] [id number] Hematology and Oncology 05/15/17 documented as of this encounter Additional Source Comments The information contained in this document represents components of the legal health record. It is not the complete legal health record.[facility]
--- OUTSIDE RECORDS SUMMARY | 2025-01-16 12:12 | XMS_ITS | Clinical Summary ---
Author Organization [facility] Address [address] [place] [address] Phone Care Team Providers Care Boiler Welder Name Role Phone SuzyErik mojica Primary Care Provider [phone] Gregorio Erik Salomon Unavailable Ander Cruz MD Unavailable [phone] Allergies Active Allergy Reactions Criticality Noted [...] Team Description 12/16/2024 Transcribe Orders Virtual Department [address] [place] [id number] Arabella Ayala PA Solitary pulmonary nodule (Primary [...] 75+ series) 2017 DIABETIC EYE EXAM 09/25/2023 HEMOGLOBIN A1C 03/27/2024 09/25/2023 BLOOD PRESSURE 04/02/2024 10/01/2023 CREATININE LEVEL 10/11/2024 10/12/2023, , 09/25/2023, Additional history exists POTASSIUM LEVEL 10/11/2024 10/12/2023, 09/11, 09/25/2023, Additional history exists INFLUENZA VACCINE (#1) 2024 04/09/2020, 2018 COVID-19 VACCINE ( season) 2025 07/22/2020, 06/24/2020 HEPATITIS A VACCINES Aged Out No long [...] EDT) SODIUM 137 133 - 146 mmol/L [facility] CHLORIDE 102 96 - 108 mmol/L [facility] POTASSIUM 5.1 3.3 - 5.1 mmol/L [facility] Comment:Specimen slightly he molyzed, result may be falsely elevated. CO2 22 21 - 35 mmol/L [facility] BUN 22(H) 6 - 19 mg/dL [facility] CREATININE 0.80 0.5 - 1.5 mg/dL [facility] GLUCOSE 138(H) 70 - 99 mg/dL [facility] CALCIUM 9.7 8.4 - 10.3 mg/dL [facility] EGFR 89 >59 mL/min/1.7 3m2 [facility] Comment:Estimated glomerular filtration rate calculated using the CKD-EPI refit equation. ANION GAP 18 10 - 20 mmol/L [facility] Blood 10/12/2023 11:5 9 AM EDT 10/12/2023 12:02 PM EDT us Tiffany Rodney PA-C LAB BLOOD ORDERABLES Final Result [address] [address] * (ABNORMAL) Hemoglobin A1c (09/25/2023 5:41 AM EDT) HEMOGLOBIN A1C 5.9(H) 4.3 - 5.8 % [facility] 09/25/2023 5:41 AM EDT 09/25/2023 5:59 AM EDT us Allen Desouza DO LAB BLOOD ORDERABLES Final Res ult [address] [address] * (ABNORMAL) Outside LDL (09/23/2010) LDL - External 45(A) 50 - 250 mg/ml us Historical Provider LAB BLOOD ORDERABLES Carrie l Result from Last 3 Months or Most Recently Relevant to Health Maintenance Insurance [employer] SUPPLEMENT MEDICARE PART A & B [employer] SUPPLEMENT MEDICARE PART A & B [employer] SUPPLEMENT MEDICARE PART A & B [employer] SUPPLEMENT MEDICARE PART A & B [employer] SUPPLEMENT MEDICARE PART A & B [employer] SUPPLEMENT MEDICARE PART A & B [employer] SUPPLEMENT MEDICARE PART A & B [employer] MEDEX SUPPLEMENT MEDICARE PART A [place] [address] [employer] MEDEX SUPPLEMENT MEDICARE PART A & B MEDICARE PART A & B [employer] SUPPLEMENT MEDICARE PART A & B [employer] SUPPLEMENT MEDICARE PART A & B [employer] SUPPLEMENT MEDICARE PART A & B [employer] MEDEX SUPPLEMENT MEDICARE PART A & B [facility] MEDEX SUPPLEMENT MEDICARE PART A & B [employer] CROSS MEDEX SUPPLEMENT MEDICARE PART A & B [employer] MED[employer] SUPPLEMENT MEDICARE PART A & B [employer] CROSS MEDEX SUPPLEMENT MEDICARE PART A & B [employer] CROSS MEDEX SUPPLEMENT Advance Directives For more information, please contact: [phone] (9AM - 5PM Teresa/[facility], Sunday-Sunday) Documents on File Type Date Recorded Patient Director Of [employer] Proxy 09/28/2023 4:34 PM * Full Code (Latest Code Status on File) Date Activated Date Inactivated Comments 09/24/2023 7:10 AM Question Answer Comments Code Status Confirmed With: Patient Code Status Communicated To: Inpatient Attending Care Teams Boiler Welder Relationship Specialty Start Date End Date Erik Perkins DO [email or web address] PCP - General Internal Medicine 05/21/20 Erik Perkins DO [email or web address] Internal Medicine 05/21/20 Ander Cruz MD [address] [place] [address] [email or web address] Hematology and Oncology 05/15/17 Additional Source Comments The information contained in this document represents components of the legal health record. It is not the complete legal health record.[facility]
--- OUTSIDE RECORDS SUMMARY | 2025-01-16 12:13 | XMS_ITS | Encounter Summary ---
Author Organization [facility] Address [address] [facility] [address] [place] [address] Phone Care Team Providers Care Welding Machine Operator Submerged Arc Name Role Phone Erik Perkins DO Primary Care Provider [phone] Erik Perkins DO Unavailable Kathleen Figueroa MD Unavailable [phone] Jeffry Bowman MD Unavailable [phone] Ander Cruz MD Unavailable [phone] Reason for Referral * Outpatient Procedure - Closed Specialty Diagnoses / Procedures Referred By Pablo bob Referred To Contact Diagnoses Atypical chest pain Procedures Adult Echo TTE Erik Perkins DO Phone: tel: fax: [email or web address] Referral ID Status Reason Start Date Expiration Date Visits Re quested Visits Authorized [id number] Closed 12/08/2020 12/08/2021 1 1 Encounter Details Date Type Department Care Team (Late st Contact Info) Description 12/08/2020 Transcribe Orders Virtual Department [address] [place] [address] Erik Perkins DO [address] [facility] [address] [place] [address] [place] [address] [email or web address] Atypical chest pain (Primary Dx); Chest pain, unspecified type Social History Tobacco Use Types Packs/Day Years Used Date Smoking Tobacco: Never Smokeless Tobacco: Never Alcohol Use Standard Drinks/Week Comments Never 0 (1 standard drink = 0.6 oz pur e alcohol) Sex and Gender Information Value Date Recorded Sex Assigned at Male 07/30/2018 1:17 PM EDT Legal Sex Male 10:11 PM EDT Gender Identity Male 07/30/2018 1:17 PM EDT Sexual Orientation Straight 07/30/2018 1: 17 PM EDT documented as of this encounter Plan of Treatment Not on file documented as of this encounter Results * TTE COMPREHENSIVE (01/19/2021 11:03 AM EDT) Body Surface Area 1.8 m2 Height 163 cm Weight 73 kg Systolic BP 174 mmHg Diastolic BP 91 mmHg Left Atrium Dimension Anterior-Posterior 34 15 - 40 mm Aortic Valve Peak Velocity 124.0 cm/s Aortic Valve Peak Gradient 6 mmHg Aortic Sinus Diameter 27 mm Ascending Aorta Diameter 27 mm Inferior Vena Cava Diameter 12 0 - 21 mm Interventricular Septum Thickness 8 mm Left Ventricle Internal Diameter End Diastole 39 42 - 58 mm Left Ventricle Internal Diameter End Systole 28 25 - 40 mm Left Ventricular Outflow Tract Diameter 17.0 mm LVOT VTI REST 156 mm Left Ventricular Outflow Tract Velocity 1.0 m/s Left Ventricular Outflow Tract Gradient at Rest 4 mmHg Left Ventricular Posterior Wall Thickness 8 mm Ejection Fraction 55 50 - 75 Percent Right Ventricle Basal Diameter 35.2 25 - 41 mm Tricuspid Valve Peak Velocity 2.4 m/s Raw LV EF% 48 % Left Atrial Volume 50 mL Left Atrial Volume Index 27.78 mL/m2 Right Ventricle Peak Systolic Pressure 26 mmHg Right Ventricle TAPSE 15.0 mm Right Atrium Pressure Estimated 3 mmHg Right Ventricle to Right Atrium Pressure Gradient 23 mmHg Right Ventricle Pulse Doppler S Wave 20.5 cm/s Right Ventricle Linear Dimension 35 mm Aortic Valve Sinus Index 1 15 20 - 32 mm Ascending Aorta Diameter 15 mm Aortic Sinus Index 15 mm Ascending Aorta Index 15 mm Anatomical Region Laterality Modality Heart Ultrasound Narrative 01/19/2021 11:42 AM EDT This patient was imaged during atrial fibrillation. The estimated ejection fraction appears grossly normal. The apical segments were not able to be imaged due to poor endocardial definition and I cannot comment on any wall motion abnormality in that location no contrast was used. There was no evidence of aortic stenosis or insufficiency there was trace mitral regurgitation and the PA pressure was normal on the study. Compared to a prior echocardiogram done in 2014 probably no difference although the PA pressure on that study in the past was higher in the 45 mmHg range Left Ventricle The left ventricle is not well visualized. The left ventricular cavity size and wall thickness are normal. Left ventricular systolic function is normal. The estimated ejection fraction is 55% (Normal 50-75%). The left ventricular ejection fraction was measured by the single dimension method. Left ventricular diastolic function could not be adequately assessed. There is no evidence of left ventricular thrombus. Right Ventricle The right ventricular size is normal. The right ventricle measures 35 mm at the base (normal 25-41 mm). The right ventricular systolic function is normal. Left Atrium The left atrium is normal in size. The left atrial anterior-posterior dimension measures 34 mm (normal 15-40 mm). The LA volume is 50 mL. The LA volume index is 27.78 mL/m2 (normal indexed value is 16-34 mL/m2). The pulmonary venous flow profiles are normal. Right Atrium The right atrium is normal in size. The IVC is normal in size (2.1cm or less). The IVC measures 12 mm (normal <=21 mm). The IVC demonstrates normal collapse with inspiration which is consistent with normal RA pressure. Mitral Valve The mitral valve appears normal. There is no evidence of mitral stenosis. There is trace mitral regurgitation detected by spectral and color Doppler. Tricuspid Valve The tricuspid valve appears normal. There is no evidence of tricuspid stenosis. There is evidence of trace tricuspid regurgitation by color and spectral Doppler. Normal pulmonary pressure. The RV systolic pressure was estimated from the peak TV regurgitant velocity. The estimated RV systolic pressure is 26 mmHg assuming a right atrial pressure of 3 mmHg. The calculated peak RV-RA pressure gradient is 23 mmHg. Aortic Valve The aortic valve was not well visualized. Probable tricuspid. There is no evidence of valvular aortic stenosis. The peak aortic valve gradient is 6 mmHg. There is no evidence of aortic regurgitation by color and spectral Doppler. The visualized portions of the thoracic aorta appear normal. Pulmonic Valve Pulmonary valve was not well visualized. The pulmonary valve appears normal. There is no evidence of pulmonic stenosis. There is no evidence of pulmonary regurgitation by color and spectral Doppler. Pericardium There is no evidence of pericardial effusion. Interatrial Septum The interatrial septum appears normal. General Findings The study was technically difficult (4). Attempted to put in an IV 2x for contrast but was unable to put in an IV for today's study. Study quality explanation: body habitus. Technique(s) used in the evaluation: Color flow Doppler and Spectral Doppler. The predominant rhythm during the study was atrial fibrillation. Comparison Findings Compared to a prior TTE from 01/22/2014 us Erik Perkins DO CV ECHO ORDERABLES Final Result * XR CHEST PA AND LATERAL 2 VIEWS (01/19/2021 9:52 AM EDT) Anatomical Region Laterality Modality Chest Computed Radiogr aphy 01/19/2021 11:1 9 AM EDT Impressions 01/19/2021 11:20 AM EDT No acute cardiopulmonary abnormalities detected. No source of the chest pain is seen. Narrative 01/19/2021 11:20 AM EDT PA and lateral views the chest obtained and compared to prior of January 21, 2014. Heart not enlarged. No worrisome mediastinal contour change. No infiltrates or effusions are identified. Some degenerative change in the lumbar spine but no compression deformity seen. Procedure Note Nnamdi Randhawa MD - 01/19/2021 PA and lateral views the chest obtained and compared to prior of 2013. Heart not enlarged. No worrisome mediastinal contour change. Noinfiltrates or effusions are identified. Some degenerative change in thelumbar spine but no compression deformity seen. IMPRESSION: No acute cardiopulmonary abnormalities detected. No source of the chestpain is seen. us Erik Perkins DO IMG XR CHEST Final Result documented in this encounter Visit Diagnoses Diagnosis Atypical chest pain- Primary Other chest pain Chest pain, unspecified type Chest pain, unspecified type Atypical chest pain Other chest pain documented in this encounter Care Teams Welding Machine Operator Submerged Arc Relationship Specialty Start Date End Date Erik Pekrins DO PCP - General Internal Medicine 05/21/20 Erik Perkins DO Internal Medicine 05/21/20 Kathleen Figueroa MD [address] [place] [address] [facility], [place], [place] [id number] Historical LMR Provider 02/26/17 Jeffry Bowman MD [address] [place] [address] [facility] [place], [place] [id number] Historical LMR Provider 02/26/17 2 Ander Cruz MD [address] [place] [address] Hematology and Oncology 05/15/17 documented as of this encounter Additional Source Comments The information contained in this document represents components of the legal health record. It is not the complete legal health record.[facility]
--- OUTSIDE RECORDS SUMMARY | 2025-01-16 12:13 | XMS_ITS | Encounter Summary ---
Author Organization [facility] Address [address] [facility] [address] [place] [address] Phone Care Team Providers Care Lead Ramp Agent Name Role Phone Erik Perkins DO Primary Care Provider [phone] Erik Perkins DO Unavailable Ander Cruz MD Unavailable [phone] Reason for Referral * MRI/CAT Scan - Closed Specialty Diagnoses / Procedures Referred By Pablo bob Referred To Contact Radiology Diagnoses Nonintractable headache, unspecified chronicity pattern, unspecified headache type Procedures CT Head Erik Perkins DO Phone: tel: fax: [email or web address] Referral ID Status Reason Start Date Expiration Date Visits Re quested Visits Authorized [id number] Closed 06/06/2023 1 1 Encounter Details Date Type Department Care Team ([facility] st Contact Info) Description 06/06/2023 Transcribe Orders Virtual Department [address] [place] [address] Erik Perkins DO [address] [facility] [place] [address] [email or web address] Nonintractable headache, unspecified chronicity pattern, unspecified headache type (Primary Dx) Social History Tobacco Use Types Packs/Day Years Used Date Smoking Tobacco: Never Smokeless Tobacco: Never Alcohol Use Standard Drinks/Week Comments Never 0 (1 standard drink = 0.6 oz pur e alcohol) Education Answer Date Recorded Are you interested in more education? Not on danilo e 09/08/2022 Are you concerned about learning? Not on file 09/08/2022 No 09/08/2022 No 09/08/2022 Digital Access Answer Date Recorded No 10/07/2022 No 10/07/2022 Reliable internet access at home? Not on file 10/07/2022 Device with a working camera? Not on file Sex and Gender Information Value Date Recorded Sex Assigned at Male 07/30/2018 1:17 PM EDT Legal Sex Male 10:11 PM EDT Gender Identity Male 07/30/2018 1:17 PM EDT Sexual Orientation Straight 07/30/2018 1: 17 PM EDT documented as of this encounter Plan of Treatment Not on file documented as of this encounter Results * CT HEAD WITHOUT CONTRAST (06/28/2023 4:59 PM EST) Anatomical Region Laterality Modality Head Computed Tomogra phy 06/29/2023 8:21 AM EST Impressions 06/29/2023 11:36 AM EST No acute intracranial abnormality. Partial opacification and calcification at the left sphenoid sinus suggestive of chronic sinusitis. Narrative 06/29/2023 11:[address] HEAD WITHOUT CONTRAST Referring clinician's provided indication for this examination in [facility]: Outside Radiology Order; HEADACHE TECHNIQUE: Multidetector-row CT of the head was performed without intravenous contrast using tailored dose modulation techniques. Images were reconstructed in the axial, coronal, and sagittal planes. COMPARISON: There is no prior study available for comparison. FINDINGS: Brain Parenchyma: No midline shift, mass effect, parenchymal hemorrhage, or evidence of acute territorial infarct. There are areas of hypodensity in the periventricular white matter which may reflect a manifestation of chronic small vessel disease. Ventricular System and Extra-Axial Spaces: The ventricles and sulci are prominent. No extra-axial fluid collections. Basilar cisterns are patent. No hydrocephalus. Osseous and Extracranial Structures: Atherosclerotic calcification of the carotid siphon. Partial opacification and calcification at the left sphenoid sinus suggestive of chronic sinusitis. Cerumen at the left external auditory canal. Patient is status post bilateral lens replacement No orbital abnormality. Procedure Note Sylvia Stroud MD - 06/29/2023 CT HEAD WITHOUT CONTRAST Referring clinician's provided indication for this examination in [facility]:Outside Radiology Order; HEADACHE TECHNIQUE: Multidetector-row CT of the head was performed withoutintravenous contrast using tailored dose modulation techniques. Imageswere reconstructed in the axial, coronal, and sagittal planes. COMPARISON: There is no prior study available for comparison. FINDINGS: Brain Parenchyma: No midline shift, mass effect, parenchymal hemorrhage,or evidence of acute territorial infarct. There are areas of hypodensityin the periventricular white matter which may reflect a manifestation ofchronic small vessel disease. Ventricular System and Extra-Axial Spaces: The ventricles and sulci areprominent. No extra-axial fluid collections. Basilar cisterns are patent.No hydrocephalus. Osseous and Extracranial Structures: Atherosclerotic calcification of thecarotid siphon. Partial opacification and calcification at the leftsphenoid sinus suggestive of chronic sinusitis. Cerumen at the leftexternal auditory canal. Patient is status post bilateral lens replacementNo orbital abnormality. IMPRESSION: No acute intracranial abnormality. Partial opacification and calcification at the left sphenoid sinussuggestive of chronic sinusitis. Erik Perkins DO IM CT HEAD/NECK Final Result documented in this encounter Visit Diagnoses Diagnosis Nonintractable headache, unspecified chronicity pattern, unspecified headache type- Primary Nonintractable headache, unspecified chronicity pattern, unspecified headache type documented in this encounter Care Teams Lead Ramp Agent Relationship Specialty Start Date End Date Erik Perkins DO PCP - General Internal Medicine 05/21/20 Erik Perkins DO Internal Medicine 05/21/20 Ander Cruz MD [address] [place], [place] [id number] [email or web address] Hematology and Oncology 05/15/17 documented as of this encounter Additional Source Comments The information contained in this document represents components of the legal health record. It is not the complete legal health record.[facility]
--- OUTSIDE RECORDS SUMMARY | 2025-01-16 12:13 | XMS_ITS | Encounter Summary ---
Author Organization [facility] Address [address] [facility] [address] [place] [address] Phone Care Team Providers Care Production Support Manager Name Role Phone Erik Perkins DO Primary Care Provider [phone] Erik Perkins DO Unavailable Kathleen Figueroa MD Unavailable [phone] Jeffry Bowman MD Unavailable [phone] Ander Cruz MD Unavailable Encounter Details Date Type Department Care Team (Late st Contact Info) Description 08/17/2020 Transcribe Orders [facility] [address] [place] [address] Erik Perkins DO [address] [facility] [address] [place], [place] [id number] Social History Tobacco Use Types Packs/Day Years [...] on filedocumented in this encounter Care Teams Production Support Manager Relationship Specialty Start Date End Date Erik Perkins DO PCP - General Internal Medicine 05/21/20 Erik Perkins DO Internal Medicine 05/21/20 Kathleen Figueroa MD [address] [place] [address] Orthopedics Sports [facility], [place], [place] [id number] Historical LMR Provider 02/26/17 Jeffry Bowman MD [address] [place] [address], [place], [place] [id number] Historical LMR Provider 02/26/17 2 Ander Cruz MD [address] [place] [address] Hematology and Oncology 05/15/17 documented as of this encounter Additional Source Comments The information contained in this document represents components of the legal health record. It is not the complete legal health record.[facility]
--- OUTSIDE RECORDS SUMMARY | 2025-01-16 12:13 | XMS_ITS | Encounter Summary ---
Author Organization [facility] Address [address] [place] [address] Phone Care Team Providers Care Engineering Associate Name Role Phone Erik Perkins Primary Care Provider [phone] SuzyErik mojica DO Unavailable Ander Cruz MD Unavailable Encounter Details Date Type Department Care Team (Late st Contact Info) Description 09/23/2023 Procedure Pass [facility], Ct Scan - [facility] [address] [place] [address] Social History Tobacco Use Types Packs/Day Years [...] computer) with a working camera? No 09/24/2023 Sex and Gender Information Value Date Recorded Sex Assigned at Male 07/30/2018 1:17 PM EDT Legal Sex Male 10:11 PM EDT Gender Identity Male 07/30/2018 1:17 PM EDT Sexual Orientation Straight 07/30/2018 1: 17 PM EDT documented as of this encounter Functional Status * Calculated C-SSRS Risk Score (Lifetime/Recent) Answer Date of Assessment Author No Risk Indicated 09/24/2023 2:57 PM EDT Soledad Quiñonez, DERICK * [place] Suicide Severity Rating Scale (Screener/Recent Self-Report) Question Answer Date of Assessment Author 1. Wish to be (Past 1 Month) No 09/24/2023 2:57 PM EDT Giselle Uribe RN 2. Non-Specific Active Suici dominique Thoughts (Past 1 Month) No 09/24/2023 2:57 PM EDT Aayush Uribe RN 6. Suicidal Behavior (Lifetime) No 2:57 PM EDT Soledad Uribe RN documented as of this encounter Plan of Treatment Not on file documented as of this encounter Visit Diagnoses Not on filedocumented in this encounter Care Teams Engineering Associate Relationship Specialty Start Date End Date Erik Perkins DO PCP - General Internal Medicine 05/21/20 Erik Perkins DO Internal Medicine 05/21/20 Ander Cruz MD [address] [place], [place] [id number] [email or web address] Hematology and Oncology 05/15/17 documented as of this encounter Additional Source Comments The information contained in this document represents components of the legal health record. It is not the complete legal health record.[facility]
--- OUTSIDE RECORDS SUMMARY | 2025-01-16 12:13 | XMS_ITS | Encounter Summary ---
Author Organization [facility] Address [address] [facility] [address] [place] [address] Phone Care Team Providers Care Rn Procedures Name Role Phone SuzyErik mojica Primary Care Provider [phone] Gregorio Erik Salomon Unavailable Ander Cruz MD Unavailable [phone] Encounter Details Date Type Department Care Team (Late st Contact Info) Description 06/06/2023 Procedure Pass [facility], Ct Scan - [facility] [address] [place] [address] Social History Tobacco Use Types Packs/Day Years [...] on filedocumented in this encounter Care Teams Rn Procedures Relationship Specialty Start Date End Date Erik Perkins DO [email or web address] PCP - General Internal Medicine 05/21/20 SuzyErik mojica DO [email or web address] Internal Medicine 05/21/20 Ander Cruz MD [address] [place] [address] [email or web address] Hematology and Oncology 05/15/17 documented as of this encounter Additional Source Comments The information contained in this document represents components of the legal health record. It is not the complete legal health record.[facility]
--- OUTSIDE RECORDS SUMMARY | 2025-01-16 12:13 | XMS_ITS | Encounter Summary ---
Author Organization [facility] Address [address] [facility] [address] [place] [address] Phone Care Team Providers Care Illustrator Set Name Role Phone SuzyErik mojica Primary Care Provider [phone] Suzyyunior Erik Salomon Unavailable Ander Cruz MD Unavailable [phone] Reason for Referral * MRI/CAT Scan - Authorized Specialty Diagnoses / Procedures Referred By Pablo bob Referred To Contact Radiology Diagnoses Solitary pulmonary nodule Procedures CT Chest Arabella Ayala PA [address] [place] [address] [place] [address] Phone: tel: fax: Referral ID Status Reason Start Date Expiration Date V isits Requested Visits Authorized [id number] Authorized 12/16/2024 1 1 Encounter Details Date Type Department Care Team (Latest Contact Info) Description 12/16/2024 Transcribe Orders Virtual Department [address] [place] [address] Arabella Ayala PA [address] [address] [place] [address] Solitary pulmonary nodule (Primary Dx) Social History Tobacco Use Types [...] as of this encounter Plan of Treatment Scheduled Orders Name Type Priority Associated Diagnoses Orde r Schedule CT Chest Imaging Routine Solitary pulmonary nodule Expected: 12/16/2024, Expires: 12/16/2025 documented as of this encounter Visit Diagnoses Diagnosis Solitary pulmonary nodule- Primary documented in this encounter Care Teams Illustrator Set Relationship Specialty Start Date End Date Erik Perkins DO [email or web address] PCP - General Internal Medicine 05/21/20 Erik Perkins DO [email or web address] Internal Medicine 05/21/20 Ander Cruz MD [address] [place] [address] [email or web address] Hematology and Oncology 05/15/17 documented as of this encounter Additional Source Comments The information contained in this document represents components of the legal health record. It is not the complete legal health record.[facility]
--- OUTSIDE RECORDS SUMMARY | 2025-01-16 12:13 | XMS_ITS | Encounter Summary ---
Author Organization [facility] Address [address] [facility] [address] [place] [address] Phone Care Team Providers Care Salesperson Used Cars Name Role Phone Erik Perkins DO Primary Care Provider [phone] Erik Perkins DO Unavailable Kathleen Figueroa MD Unavailable [phone] Jeffry Bowman MD Unavailable [phone] Ander Cruz MD Unavailable [phone] Encounter Details Date Type Department Care Team (Late st Contact Info) Description 12/08/2020 Procedure Pass [facility] [address] [place] [address] Social History Tobacco Use Types Packs/Day Years [...] on filedocumented in this encounter Care Teams Salesperson [employer] Relationship Specialty Start Date End Date Erik Perkins DO PCP - General Internal Medicine 05/21/20 Erik Perkins DO Internal Medicine 05/21/20 Kathleen Figueroa MD [address] [place] [address] Orthopedics & Sports [facility], [place], [place] [id number] Historical LMR Provider 02/26/17 Jeffry Bowman MD [address] [place] [address] Orthopedics Sports [facility], [place], [place] [phone] Historical LMR Provider 02/26/17 2 Ander Cruz MD [address] [place] [phone] Hematology and Oncology 05/15/17 documented as of this encounter Additional Source Comments The information contained in this document represents components of the legal health record. It is not the complete legal health record.[facility]
--- OUTSIDE RECORDS SUMMARY | 2025-01-16 12:13 | XMS_ITS | Encounter Summary ---
Author Organization [facility] Address [address] [facility] [address] [place] [address] Phone Care Team Providers Care Operations Developer Name Role Phone Erik Perkins DO Primary Care Provider [phone] Erik Perkins DO Unavailable Ander Cruz MD Unavailable [phone] Encounter Details Date Type Department Care Team ([facility] st Contact Info) Description 05/11/2023 Transcribe Orders Virtual Department [address] [place] [address] Erik Perkins DO [address] [facility] [place] [address] [place] [address] Nausea and vomiting, unspecified vomiting type (Primary Dx) Social History Tobacco Use [...] documented as of this encounter Results * FL UGI SERIES DOUBLE CONTRAST AND SMALL BOWEL (05/18/2023 2:20 PM EST) Anatomical Region Laterality Modality Abdomen Computed Radiogr aphy 05/18/2023 3:11 PM EST Impressions 05/18/2023 5:04 PM EST 1. Moderate to severe esophageal dysmotility with diffuse esophageal spasms in the lower half esophagus and a characteristic corkscrew appearance. 2. Holdup of a 13 mm barium tablet near the GE junction without definite lesion demonstrated fluoroscopically. Consider direct visualization for further evaluation as indicated clinically. 3. Transit time within normal limits. 4. Large volume of stool demonstrated throughout the colon and rectum FLUOROSCOPY TIME: 2 minutes 36 seconds NUMBER OF IMAGES: [id number] ATTESTATION: I, Sylvia Stroud as teaching physician, have reviewed the images for this case and if necessary edited the report originally created by Talat Roth. Narrative 05/18/2023 5:04 PM EST DOUBLE CONTRAST UPPER GI SERIES WITH SMALL BOWEL FOLLOW-THROUGH HISTORY: Nausea with vomiting. COMPARISON: Chest radiograph 01/19/2031. CT abdomen 07/30/2018. OPERATORS: Talat Roth SUPERVISING PHYSICIAN: Sylvia Stroud TECHNIQUE: Double contrast upper GI series with small bowel follow-through. Post abdominal films were obtained at 45 minutes, 1 hour 5 minutes, 1 hour 35 minutes, and 2 hours 35 minutes. The examination was partially limited due to patient discomfort. FINDINGS: A preliminary view of the abdomen reveals a nonobstructive bowel gas pattern. A large volume of stool is demonstrated throughout the colon and rectum. ESOPHAGUS: Moderate to severe dysmotility evidenced by diffuse esophageal spasms in the lower half esophagus with a characteristic corkscrew appearance. No gross mucosal pathology demonstrated fluoroscopically. There was holdup of a 13 mm barium tablet near the GE junction for at least 1 minute. STOMACH: Mild distention of the pyloric antrum. No additional gross mucosal pathology demonstrated fluoroscopically. DUODENUM: Bulb and sweep are within normal limits. Duodenal-jejunal junction is in the normal expected position. SMALL BOWEL FOLLOW-THROUGH: Small bowel loops are normal in caliber and distribution. Spot compression views of the terminal ileum are within normal limits The transit time was within normal limits at approximately 2 hours 35 minutes. Procedure Note Sylvia Stroud MD - 05/18/2023 DOUBLE CONTRAST UPPER GI SERIES WITH SMALL BOWEL FOLLOW-THROUGH HISTORY: Nausea with vomiting. COMPARISON: Chest radiograph 01/19/2031. CT abdomen 07/30/2018. OPERATORS: Talat Roth SUPERVISING PHYSICIAN: Sylvia Stroud TECHNIQUE: Double contrast upper GI series with small bowelfollow-through. Post abdominal films were obtained at 45 minutes, 1 hour 5minutes, 1 hour 35 minutes, and 2 hours 35 minutes. The examination waspartially limited due to patient discomfort. FINDINGS: A preliminary view of the abdomen reveals a nonobstructive bowel gaspattern. A large volume of stool is demonstrated throughout the colon andrectum. ESOPHAGUS: Moderate to severe dysmotility evidenced by diffuse esophageal spasms inthe lower half esophagus with a characteristic corkscrew appearance. Nogross mucosal pathology demonstrated fluoroscopically. There was holdup ofa 13 mm barium tablet near the GE junction for at least 1 minute. STOMACH: Mild distention of the pyloric antrum. No additional grossmucosal pathology demonstrated fluoroscopically. DUODENUM: Bulb and sweep are within normal limits. Duodenal-jejunaljunction is in the normal expected position. SMALL BOWEL FOLLOW-THROUGH: Small bowel loops are normal in caliber and distribution. Spot compression views of the terminal ileum are within normal limits The transit time was within normal limits at approximately 2 hours 35minutes. IMPRESSION: 1. Moderate to severe esophageal dysmotility with diffuse esophagealspasms in the lower half esophagus and a characteristic corkscrewappearance. 2. Holdup of a 13 mm barium tablet near the GE junction without definitelesion demonstrated fluoroscopically. Consider direct visualization forfurther evaluation as indicated clinically. 3. Transit time within normal limits. 4. Large volume of stool demonstrated throughout the colon and rectum FLUOROSCOPY TIME: 2 minutes 36 seconds NUMBER OF IMAGES: [id number] ATTESTATION: I, Sylvia Stroud as teaching physician, have reviewed theimages for this case and if necessary edited the report originally createdby Talat Roth. Erik Perkins DO IMG FL MISC Final Result documented in this encounter Visit Diagnoses Diagnosis Nausea and vomiting, unspecified vomiting type- Primary Nausea and vomiting, unspecified vomiting type documented in this encounter Care Teams Operations Developer Relationship Specialty Start Date End Date [email or web address] [email or web address] PCP - General Internal Medicine 05/21/20 Erik Perkins DO [email or web address] Internal Medicine 05/21/20 Ander Cruz MD [address] [place] [address] [email or web address] Hematology and Oncology 05/15/17 documented as of this encounter Additional Source Comments The information contained in this document represents components of the legal health record. It is not the complete legal health record.[facility]
--- OUTSIDE RECORDS SUMMARY | 2025-01-16 12:13 | XMS_ITS | Encounter Summary ---
Author Organization [facility] Address [address] [facility] [address] [place] [address] Phone Care Team Providers Care Product Manager Medical Device Name Role Phone Erik Perkins Primary Care Provider [phone] SuzyErik mojica DO Unavailable Ander Cruz MD Unavailable [phone] Encounter Details Date Type Department Care Team (Late st Contact Info) Description 09/23/2023 Procedure Pass [facility], [facility] [address] [place] [address] Social History Tobacco Use Types Packs/Day Years [...] 2:57 PM EDT Soledad Quiñonez, DERICK * [place] Suicide Severity Rating Scale (Screener/Recent Self-Report) Question Answer Date of Assessment Author 1. Wish to be (Past 1 Month) No 09/24/2023 2:57 PM EDT Giselle Uribe RN 2. Non-Specific Active Suici dominique Thoughts (Past 1 Month) No 09/24/2023 2:57 PM EDT Aayush Uribe RN 6. Suicidal Behavior (Lifetime) No 2:57 PM EDT Soledad Uribe, DERICK documented as of this encounter Plan of Treatment Not on file documented as of this encounter Visit Diagnoses Not on filedocumented in this encounter Care Teams Product Manager Medical Device Relationship Specialty Start Date End Date Erik Perkins DO PCP - General Internal Medicine 05/21/20 Erik Perkins DO Internal Medicine 05/21/20 Ander Cruz MD [address] [place] [address] [email or web address] Hematology and Oncology 05/15/17 documented as of this encounter Additional Source Comments The information contained in this document represents components of the legal health record. It is not the complete legal health record.[facility]
--- OUTSIDE RECORDS SUMMARY | 2025-01-16 12:13 | XMS_ITS | Encounter Summary ---
Author Organization [facility] Address [address] [facility] [address] [place] [address] Phone Care Team Providers Care Shortage Worker Name Role Phone Erik Perkins DO Primary Care Provider [phone] Erik Perkins DO Unavailable Kathleen Figueroa MD Unavailable [phone] Jeffry Bowman MD Unavailable [phone] Ander Cruz MD Unavailable [phone] Encounter Details Date Type Department Care Team (Late st Contact Info) Description 07/29/2020 Transcribe Orders Virtual Department [address] [place] [address] Erik Perkins DO [address] [facility] [place] [address] [place] [address] [email or web address] Dyspnea on exertion (Primary Dx) Social History Tobacco Use Types [...] documented as of this encounter Results * Pulmonary Function Test Reason for Exam: Dyspnea/Shortness of Breath (dyspnea on exertion); Type ofPFT Test: Lung Volumes, DLCO, Spirometry with bronchodilator; Performing Location: [facility] (09/14/2020 5:13 PM EDT) FEV1 FVC FEV1/FVC TLC DLCO Anatomical Region Laterality Modality Other Impressions 09/14/2020 5:13 PM EDT PULMONARY FUNCTION STUDIES Full pulmonary function studies were ordered on this 80 y.o. year-old male for evaluation of dyspnea on exertion. Review of the medical record reveals that the patient is a past smoker. Prior pulmonary function studies are not available for comparison. TECHNICAL NOTE: The patient attempted testing, but had great difficulty and was noted to develop a coughing fit . He elected not to continue with testing. us Erik Perkins DO PFT ORDERABLES Final Result documented in this encounter Visit Diagnoses Diagnosis Dyspnea on exertion- Primary Other dyspnea and respiratory abnormality Dyspnea on exertion Other dyspnea and respiratory abnormality documented in this encounter Care Teams Shortage Worker Relationship Specialty Start Date End Date Erik Perkins DO PCP - General Internal Medicine 05/21/20 Erik Perkins DO Internal Medicine 05/21/20 Kathleen Figueroa MD [address] [place] [address] [facility], [place] [address] Historical LMR Provider 02/26/17 Jeffry Bowman MD [address] [place] [address] [facility], [place], [place] [id number] Historical LMR Provider 02/26/17 2 Ander Cruz MD [address] [place] [address] [email or web address] Hematology and Oncology 05/15/17 documented as of this encounter Additional Source Comments The information contained in this document represents components of the legal health record. It is not the complete legal health record.[facility]
== END 2025-01-16 12:09 | disposition home or self-care (01) ==
LOC: HO.HUSH 11:06
PROVIDERS: PCP Internal Medicine; Visit Provider Urology
DX: R33.9 Retention of urine, unspecified (principal); N39.0 Urinary tract infection, site not specified
CPT/HCPCS: 52000; 99213

== ENCOUNTER → 2025-01-16 11:05 | Outpatient (BNVA) | payer MEDICARE, SELFPAY | PROVIDERS: PCP Internal Medicine; Visit Provider Urology | DX: R33.9 Retention of urine, unspecified (principal); N39.0 Urinary tract infection, site not specified; N32.89 Other specified disorders of bladder | CPT/HCPCS: 51798; 52000; 99212 ==

== ENCOUNTER 2025-01-22 21:00 | Emergency (ER) | payer MEDICARE, SELFPAY ==
--- NOTE | ~2025-01-22 | CT_ITS ---
CLINICAL HISTORY: fall CT head without contrast Comparison: CT/REG/SR - CT HEAD/BRAIN WO IV CON - 12/04/24 22:31 EDT Findings: BRAIN: No acute infarct, hemorrhage, or mass effect. Scattered periventricular/deep white matter hypodensities, nonspecific, however may represent chronic microvascular ischemic disease. CSF SPACES: No hydrocephalus or effacement of basal cisterns. SKULL: No calvarial fracture. SINUSES: Left sphenoid sinus polypoid mucosal thickening. ORBITS: Limited views are unremarkable. OTHER: Negative. IMPRESSION: 1. No acute intracranial findings. This document has been electronically signed by: Sheila Bowden MD on 01/23/2025 01:11:24
--- NOTE | ~2025-01-22 | CT_ITS ---
CLINICAL HISTORY: fall CT cervical spine without contrast Comparison: None provided Findings: Straightening of the normal cervical lordosis. Multilevel degenerative endplate changes of the cervical spine. No high-grade spinal stenosis. No acute fractures or dislocations. Incidentally noted small pocket of air in the right internal carotid, of uncertain clinical significance. No cervical fluid collections or masses. Lung apices are clear. IMPRESSION: No acute traumatic abnormality in the cervical spine. This document has been electronically signed by: Sheila Bowden MD on 01/23/2025 01:19:42
--- NOTE | ~2025-01-22 | CT_ITS ---
CLINICAL HISTORY: fall, reports injury to right lower ribs CT chest without contrast Comparison: None provided Findings: NECK BASE: Large left thyroid nodule, would be better evaluated with ultrasound. LUNGS/PLEURA: Scarring/atelectasis at the lung bases. Scattered subcentimeter micro nodules, for example in the right middle lobe measuring 3 mm. PULM VASCULAR: Poorly evaluated without IV contrast MEDIASTINUM: No masses or lymphadenopathy. CARDIAC: No pericardial effusion. No cardiomegaly. AORTA: No aneurysm. CHEST WALL: No masses or axillary lymphadenopathy. Pacemaker in the left chest wall. LIMITED ABDOMEN: Distended gallbladder. Small hyperdense renal cysts partially evaluated. BONES: Right anterior 7th - 9th rib fractures. IMPRESSION: 1. Mildly displaced fractures of the right anterior 7th to 9th ribs. This document has been electronically signed by: Sheila Bowden MD on 01/23/2025 01:15:43
[2025-01-22 21:22] VITALS: BP 146/78; PULSE 96; O2SAT 97; BMI 21.9
--- NOTE | 2025-01-22 21:33 | ED_ITS ---
HPI - Fall General Chief Complaint: Fall Stated Complaint: flank pain after fall Time Seen by Provider: 01/22/25 21:28 Source: patient and EMS Mode of arrival: EMS Limitations: no limitations History of Present Illness ED Provider: HPI Narrative: 84-year-old male reports that he was just discharged from rehab on home and he already told me that he fell 3 times, the last time he fell he reports hitting his right ribcage where he hurts, he also uses fentanyl patches for low back pain, he has denies head strike at this time, denies neck pain, reportedly he is on Eliquis Related Data Home Medications ?Medication ?Instructions ?Recorded ?Confirmed amlodipine 10 mg tablet 10 mg PO DAILY 10/14/2301/12 lisinopril 10 mg tablet 10 mg PO DAILY 10/14/2301/12 fentanyl 100 mcg/hr transdermal 100 mcg topical Q72H 0 12/01/24 01/23/25 patch fentanyl 50 mcg/hr transdermal 50 mcg topical Q72H 01/23/25 patch levetiracetam 500 mg tablet 500 mg PO DAILY 12/01/24 0 01/23/25 mirtazapine 15 mg tablet 15 mg PO DAILY PRN Sleep 01/23/25 Previous Rx's ?Medication ?Instructions ?Recorded metformin 500 mg tablet 500 mg PO BIDWMEAL #60 tabs 10/18/23 omeprazole 20 mg capsule,delayed 20 mg PO BID@0630,163 0 #0 caps 10/18/23 release apixaban 5 mg tablet (Eliquis) 5 mg PO BID #0 tabs 01/04 docusate sodium 100 mg capsule 100 mg PO BID #60 caps 12/04/24 magnesium hydroxide 400 mg/5 mL 30 ml PO DAILY PRN Con stipation 12/04/24 oral suspension (Milk of Magnesia) #200 mL polyethylene glycol 3350 17 gram 17 g PO BID PRN const ipation #120 12/04/24 oral powder packet ea finasteride 5 mg tablet 5 mg PO DAILY 90 days #90 ta bs 01/16/25 terazosin 5 mg capsule 5 mg PO BEDTIME 90 days #90 caps 01/16/25 fentanyl 50 mcg/hr transdermal 1 patch transdermal Q72 H 1 month 01/26/25 patch #5 ea nitrofurantoin 100 mg PO Q12H 7 days #13 ca ps 01/26/25 monohydrate/macrocrystals 100 mg capsule (Macrobid) Allergies Allergy/AdvReac Type Severity Reaction Status Date / Time Penicillins Allergy Intermediate Rash Verified 01/22/25 21:28 Review of Systems 2 Constitutional: Constitutional: Reports as per HPI [facility] Past Medical History Medical History Elevated bilirubin Fall BPH (benign prostatic hyperplasia) Stroke Afib Diabetes Essential hypertension History of pulmonary embolism Gallbladder sludge Surgical History Previous back surgery Family History Family History Father Heart attack Social History Social History Household Members: Family Household Members Other:: Son Housing: Condominium Do you presently have visiting nurse or other home services: No Alcohol intake: never Comment: IV Ofirmev infusing Patient Tobacco Use Status: Former Tobacco user Tobacco use type: Cigarette Years Smoked: 30 Smoked in Last 30 Days: No Second Hand Smoke Exposure: No Use of substances other than those prescribed or required for medical reasons: No Advance Directives: Yes Advance Directives on File: Yes Advance Directives Date on File: 12/23/24 Do you have a plan to hurt others: No Plan service: No Physical Exam 2 Vital Signs: Vital Signs: Last Vital Signs Temp 98.7 F 01/26/25 08:56 Pulse 76 01/26/25 08:56 Resp 20 01/26/25 08:56 BP 121/52 L 01/26/25 09:14 Pulse Ox 98 01/26/25 08:56 O2 Del Method Room Air 01/26/25 08:56 BMI result Body Mass Index 21.9 Const: Other: * Gen: ?Elderly male * HEENT: PERRLA, EOMI, MMM, * Neck: Supple, no LAD * CV: RRR, no obvious murmurs appreciated * Resp: ?No wheezing rales rhonchi no stridor moving air well, tenderness along right lower ribcage without subcutaneous emphysema there are no hematomas * Abd: ?Bowel sounds are present, no tenderness no rebound no rigidity * MSK: Decreased muscle mass, decreased VMO recruitment, full range of motion of the hips knees ankles without deformities * Skin: Chronic skin changes * Neuro: ?Alert and oriented x3, moving upper and lower extremities symmetrically, no obvious facial asymmetry noted Course Reevaluation(s) Reevaluation #1: JANY Hicks Physician observation continued. Uneventful night. Vital signs stable. No complaints from nursing overnight. Med reconciliation not yet done by pharmacy as soon as he gets done will reconcile medications. Pending disposition. Will continue to monitor. Time: 08:28 Date: 01/24/25 Provider: JANY Dyson Patient in physician observation for case management needs. I have reviewed all workup results. Patient has 2 mildly displaced rib fractures. Currently on oxycodone for pain control. Will order incentive spirometry. He is satting 97% on RA. vitals are stable. No acute events reported overnight.? No current issues or complaints. Patient is pending placement at facility. Will continue to monitor. Time: 08:24 Date: 01/25/25 Provider: JANY Dyson Patient in physician observation for case management needs. No acute events reported overnight.? No current issues or complaints. VS stable. Patient is pending placement at facility. Will continue to monitor. Time: 08:23 Date: 01/26/25 Provider: JANY Arreola Patient in physician observation for case management needs. No acute events reported overnight.? No current issues or complaints. VS stable. Awaiting short-term rehab placement. We will continue to monitor. It appears that patient's UA is positive, urine culture positive for E coli, sensitive to Macrobid and ertapenem. We will start on Macrobid for coverage. Time: 11:39 Date: 01/26/25 Provider: JANY Arreola Physician observation ended at 1139. Patient does not meet hospital admission criteria. Patient will be transferred to [facility] via [facility] today. Medications Administered Generic Name Dose Route Start Last Admin Trade Name Freq PRN Reason Stop Dose Admin Amlodipine Besylate 10 mg 01/24/25 09:00 01/26/25 09:14 Amlodipine Besylate 10 Mg Tablet PO 10 mg DAILY SHANNA Administration Protocol Apixaban 5 mg 01/23/25 09:00 01/26/25 09:13 Apixaban 5 Mg Tablet PO 5 mg BID SHANNA Administration Docusate Sodium 100 mg 01/23/25 21:00 01/26/25 09:21 Docusate Sodium 100 Mg Capsule PO Not Given BID SHANNA Doxazosin Mesylate 4 mg 01/23/25 21:00 01/25/25 21:38 Doxazosin Mesylate 2 Mg Tablet PO 4 mg BEDTIME SHANNA Administration Fentanyl 100 mcg 01/23/25 07:30 01/26/25 09:22 Fentanyl 100 Mcg Patch.Td72 TRANSDERMA 100 mcg Q72H SHANNA Administration Fentanyl 50 mcg 01/23/25 12:00 01/26/25 11:07 Fentanyl 50 Mcg Patch.Td72 TRANSDERMA 50 mcg Q72H SHANNA Administration Finasteride 5 mg 01/23/25 09:00 01/26/25 09:13 Finasteride 5 Mg Tablet PO 5 mg DAILY SHANNA Administration Levetiracetam 500 mg 01/23/25 09:00 01/26/25 09:14 Levetiracetam 500 Mg Tablet PO 500 mg DAILY SHANNA Administration Lidocaine 1 patch 01/23/25 21:00 01/26/25 09:27 Lidocaine 4 % Patch Adh..Patch TRANSDERMA 1 patch DAILY SHANNA Administration Protocol Lisinopril 10 mg 01/23/25 09:00 01/26/25 09:13 Lisinopril 10 Mg Tablet PO 10 mg DAILY SHANNA Administration Protocol Metformin HCl 500 mg 01/23/25 07:45 01/26/25 09:13 Metformin Hcl 500 Mg Tablet PO 500 mg BIDWM SHANNA Administration Mirtazapine 15 mg 01/23/25 07:28 01/25/25 21:38 Mirtazapine 15 Mg Tablet PO 15 mg BEDTIME PRN Administration Sleep Nitrofurantoin Macrocrystals 100 mg 01/26/25 09:00 01/26/25 09:13 Nitrofurantoin Monohyd/M-Cryst 100 Mg Capsule PO 02/01/25 23:59 100 mg BID SHANNA Administration Omeprazole 20 mg 01/23/25 07:30 01/26/25 05:33 Omeprazole 20 Mg Capsule.Dr PO 20 mg BID@0630,1630 SHANNA Administration Polyethylene Glycol 17 gm 01/23/25 08:00 01/26/25 11:10 Polyethylene Glycol 3350 17 Gm Powd.Pack PO Not Given RQ4H WHILE AWAKE SHANNA Discontinued Medications Generic Name Dose Route Start Last Admin Trade Name Heide PRN Reason Stop Dose Admin Sodium Chloride 1,000 mls @ 999 mls/hr 01/22/25 22:00 01/23/25 02:37 Ns IV 01/22/25 23:00 Infused .Q1H1M SHANNA Infusion Morphine Sulfate 4 mg 01/22/25 21:49 01/22/25 23:43 Morphine Sulfate 4 Mg/Ml Cartridge IVPUSH 01/22/25 21:50 4 mg ONCE ONE Administration Protocol Oxycodone HCl 10 mg 01/23/25 01:28 01/23/25 01:36 Oxycodone Hcl Er 10 Mg Tab.Er.12h PO 01/23/25 01:29 10 mg ONCE ONE Administration Oxycodone HCl 5 mg 01/23/25 01:28 01/23/25 01:39 Oxycodone Hcl Immed Release 5 Mg Tablet PO 01/23/25 01:29 5 mg ONCE ONE Administration Medical Decision Making Medical Decision Making MDM Narrative: 10:01 PM 01/22/2025 (Dr. Ulises Steve): Patient is presenting after recurrent falls from home, he is on blood thinners given his age we will obtain imaging of the head and neck, we will obtain CT of the chest he reports injury to the right-sided ribcage without any flail segments or subcutaneous emphysema or trauma but I have considered injury to the hepatic area and rib fractures, we will obtain CT given his age and if he has multiple low rib fractures may actually expand to if obtain CT of the abdomen and pelvis with IV contrast I did not feel it is necessary at this time, otherwise we will make sure does not have a UTI, rhabdomyolysis, electrolyte derangements and if he is medically cleared and does not need admission we will plan for case management. 1:21 AM 01/23/2025 (Dr. Ulises Steve): Patient has minimally displaced ribs 7 and 9 fractures, CT head and neck unremarkable we will clear for case management evaluation Differential Diagnosis Differential Diagnoses: The differential diagnosis associated with the presentation includes (Failure to thrive, head injury, neck injury, rib fractures, hepatic injury,) Admission/Observation Consideration of admission/observation: Escalation of care including admission/observation considered Lab Data MDM Lab Attestation statement: I reviewed the patient's lab results. 01/22/25 22:17 01/22/25 22:17 Labs: Lab Results 01/22/25 01/23/25 01/23/25 Range/Units 22:17 04:12 16:08 WBC 10.2 (4.8-10.8) X10*3/uL RBC 4.37 L (4.60-5.80) X10*6/uL Hgb 13.3 L (14.0-18.0) g/dl Hct 39.1 L (42.0-52.0) % MCV 89.5 (80.0-98.0) fL MCH 30.4 (27.0-33.0) pg MCHC 34.0 (31.0-36.0) g/dl RDW 13.8 (11.0-16.0) % Plt Count 182 D (160-400) X10*3/uL MPV 9.7 (9.4-12.4) fL Immature Gran % (Auto) 0.4 (0.0-0.4) % Neut % (Auto) 84.7 H (45-73) % Lymph % (Auto) 6.3 L (20-40) % [place] % (Auto) 8.2 (2-11) % Eos % (Auto) 0.1 (0-4) % Baso % (Auto) 0.3 (0-2) % Lymph # (Auto) 0.6 L (1.2-4.9) X10*3/uL [place] # (Auto) 0.8 (0.1-1.2) X10*3/uL Eos # (Auto) 0.0 (0.0-0.4) X10*3/uL Baso # (Auto) 0.0 (0.0-0.2) X10*3/uL Abs Immat Gran (auto) 0.04 H (0.00-0.03) X10*3/uL Absolute Neuts (auto) 8.6 H (2.0-8.3) x10*3/uL Absolute Nucleated RBC 0.000 (0.0-0.012) X10*3/uL Nucleated RBC % (auto) 0.0 (0.0-0.2) /100WBC Sodium 140 (135-145) mmol/L Potassium 4.3 (3.3-5.1) mmol/L Chloride 107 (96-108) mmol/L Carbon Dioxide 22 (22-29) mmol/L Anion Gap 15 (12-20) BUN 24 H (9-16) mg/dL Creatinine 0.88 (0.5-1.4) mg/dL Estim Creat Clear Calc 49.8 Estimated GFR > 60 Random Glucose 252 H (60-115) mg/dL Calcium 9.1 (8.4-10.2) mg/dL Total Bilirubin 1.9 H (0.0-1.0) mg/dL AST 19 (5-37) U/L ALT 12 (0-40) U/L Alkaline Phosphatase 99 (39-117) U/L Total Protein 6.7 (6.5-8.0) g/dL Albumin 4.4 (3.5-5.0) g/dL Lipase 10 (8-78) U/L Urine Color Yellow Urine Appearance Cloudy Urine pH 5.5 (5.0-9.0) Ur Specific [place] 1.020 (1.005-1.025) Urine Protein 30 (1+) H (Neg-Trace) mg/dL Urine Glucose (UA) 500 H (Negative) mg/dL Urine Ketones 15 (Negative) mg/dL Urine Blood Small (1+) H (Negative) Urine Nitrite Negative (Negative) Ur Leukocyte Esterase Moderate (2+) H (Negative) Urine RBC 0-2 (0-2) /HPF Urine WBC 21-50 (0-5) /HPF Ur Squamous Epith Cells 0-2 (0-2) /HPF Urine Bacteria 3+ (None Seen) Hyaline Casts 0-2 (0-2) /LPF Influenza Type A (PCR) NEGATIVE (Negative) Influenza Type B (PCR) NEGATIVE (Negative) RSV RNA Qual (PCR) NEGATIVE (Negative) SARS-CoV-2 RNA (RT-PCR) NEGATIVE (Negative) Radiology Impression Discussion of test interpretation with radiology: I have reviewed the radiologist's reading. (IMPRESSION: 1. Mildly displaced fractures of the right anterior 7th to 9th ribs.) Discharge Plan Discharge Clinical Impression: Ribs, multiple fractures, Acute UTI Patient Disposition: Xfer SNF Transfer Details: [facility] via [facility] Instructions: Urinary Tract Infection in Men (ED), Rib Fracture (ED) Additional Instructions: Ferny was seen in the ER due to a fall. This is stained multiple rib fractures, continue using incentive spirometer 5-6 times per day. He also was found to have a urinary tract infection, please administer Macrobid as directed. If any new or worsening symptoms occur including but not limited to changes in behavior, severe shortness for breath, chest pain, please seek emergent care. Prescriptions: New fentanyl 50 mcg/hr patch 72 hour 1 patch transdermal Q72H 30 Days Qty: 5 0RF Rx Instructions: Partial Fill upon patient request. nitrofurantoin monohyd/m-cryst [Macrobid] 100 mg capsule 100 mg PO Q12H 7 Days Qty: 13 0RF Rx Instructions: must administer with a meal/food No Action amlodipine 10 mg tablet 10 mg PO DAILY lisinopril 10 mg tablet 10 mg PO DAILY omeprazole 20 mg Capsule,Delayed Release(Dr/Ec) 20 mg PO BID@0630,1630 Qty: 0 0RF metformin 500 mg tablet 500 mg PO BIDWMEAL Qty: 60 0RF Eliquis 5 mg Tablet 5 mg PO BID Qty: 0 0RF levetiracetam 500 mg tablet 500 mg PO DAILY mirtazapine 15 mg tablet 15 mg PO DAILY PRN (Reason: Sleep) fentanyl 50 mcg/hr patch 72 hour 50 mcg topical Q72H fentanyl 100 mcg/hr patch 72 hour 100 mcg topical Q72H Patient Comments: arrives 01/22/25 with 2 day old patch polyethylene glycol 3350 17 gram Powder In Packet 17 g PO BID PRN (Reason: constipation) Qty: 120 0RF magnesium hydroxide [Milk of Magnesia] 400 mg/5 mL Suspension 30 ml PO DAILY PRN (Reason: Constipation) Qty: 200 0RF docusate sodium 100 mg Capsule 100 mg PO BID Qty: 60 0RF finasteride 5 mg tablet 5 mg PO DAILY 90 Days Qty: 90 1RF terazosin 5 mg capsule 5 mg PO BEDTIME 90 Days Qty: 90 1RF [facility] [Outside] Referral Note: [phone]. Print Language: Ghanaian
--- NOTE | 2025-01-22 22:02 | ECG_ITS ---
Test Reason : WEAKNESS Blood Pressure : */* mmHG Vent. Rate : 92 BPM Atrial Rate : * BPM P-R Int : * ms QRS Dur : 66 ms QT Int : 370 ms P-R-T Axes : * 71 263 degrees QTcB Int : [address] & T wave abnormality, consider inferior ischemia ST & T wave abnormality, consider anterolateral ischemia Post pacing T wave memory is possible Abnormal ECG When compared with ECG of 22-Dec-2024 16:50, Atrial fibrillation has replaced Electronic ventricular pacemaker Referred By: Ulises Steve Electronically Signed By: MARGOT VALDEZ MD
--- OUTSIDE RECORDS SUMMARY | 2025-01-22 22:04 | XMS_ITS | Encounter Summary ---
Author Organization [facility] Address [address] [facility] [address] [place] [address] Phone Care Team Providers Care Truss Maker Name Role Phone Erik Perkins DO Primary Care Provider [phone] Erik Perkins DO Unavailable Kathleen Figueroa MD Unavailable [phone] Jeffry Bowman MD Unavailable [phone] Ander Cruz MD Unavailable [phone] Encounter Details Date Type Department Care Team (Late st Contact Info) Description 07/29/2020 Transcribe Orders Virtual Department [address] [place] [address] Erik Perkins DO [address] [facility] [place] [address] [place] [address] [email or web address] Dyspnea on exertion (Primary Dx) Social History [...] Volumes, DLCO, Spirometry with bronchodilator; Performing Location: [facility] (09/14/2020 5:13 PM EDT) FEV1 FVC FEV1/FVC [...] abnormality documented in this encounter Care Teams Truss Maker Relationship Specialty Start Date End Date Erik Perkins DO PCP - General Internal Medicine 05/21/20 Erik Perkins DO Internal Medicine 05/21/20 Kathleen Figueroa MD [address] [place] [address] [facility]oped[facility], [place] [address] Historical LMR Provider 02/26/17 Jeffry Bowman MD [address] [place] [address] [facility], [place], [place] [id number] Historical LMR Provider 02/26/17 2 Ander Cruz MD [address] [place] [address] [email or web address] Hematology and Oncology 05/15/17 documented as of this encounter Additional Source Comments The information contained in this document represents components of the legal health record. It is not the complete legal health record.[facility]
--- OUTSIDE RECORDS SUMMARY | 2025-01-22 22:04 | XMS_ITS | Encounter Summary ---
Author Organization [facility] Address [address] [place] [address] Phone Care Team Providers Care Email Designer Name Role Phone SuzyErik mojica Primary Care Provider [phone] SuzyErik mojica DO Unavailable Ander Cruz MD Unavailable [phone] Encounter Details Date Type Department Care Team (Late st Contact Info) Description 09/23/2023 Procedure Pass [facility] [address] [place] [address] Social History Tobacco Use Types Packs/Day Years [...] 2:57 PM EDT Soledad Quiñonez, DERICK * [place] Suicide Severity Rating Scale (Screener/Recent Self-Report) Question [...] on filedocumented in this encounter Care Teams Email Designer Relationship Specialty Start Date End Date Erik Perkins DO PCP - General Internal Medicine 05/21/20 Erik Perkins DO Internal Medicine 05/21/20 Ander Cruz MD [address] [place] [address] [email or web address] Hematology and Oncology 05/15/17 documented as of this encounter Additional Source Comments The information contained in this document represents components of the legal health record. It is not the complete legal health record.[facility]
--- OUTSIDE RECORDS SUMMARY | 2025-01-22 22:04 | XMS_ITS | Encounter Summary ---
Author Organization [facility] Address [address] [facility] [address] [place] [address] Phone Care Team Providers Care Or Nurse Manager Name Role Phone Erik Perkins DO Primary Care Provider [phone] Erik Perkins DO Unavailable Ander Cruz MD Unavailable [phone] Reason for Referral * MRI/CAT Scan - Closed Specialty Diagnoses / Procedures Referred By Pablo bob Referred To Contact Radiology Diagnoses Nonintractable headache, unspecified chronicity pattern, unspecified headache type Procedures CT Head Erik Perkins DO Phone: tel: fax: mailto: Referral ID Status Reason Start Date Expiration Date Visits Re quested Visits Authorized [id number] Closed 06/06/2023 1 1 Encounter Details Date Type Department Care Team ([facility] st Contact Info) Description 06/06/2023 Transcribe Orders Virtual Department [address] [place] [address] Erik Perkins DO [address] [facility] [place] [address] [email or web address] Nonintractable headache, unspecified chronicity pattern, unspecified headache [...] clinician's provided indication for this examination in [facility]: Outside Radiology Order; HEADACHE TECHNIQUE: Multidetector-row CT [...] clinician's provided indication for this examination in [facility]:Outside Radiology Order; HEADACHE TECHNIQUE: Multidetector-row CT of [...] type documented in this encounter Care Teams Or Nurse Manager Relationship Specialty Start Date End Date Erik Perkins DO PCP - General Internal Medicine 05/21/20 Erik Perkins DO Internal Medicine 05/21/20 Ander Cruz MD [address] [place], [place] [id number] [email or web address] Hematology and Oncology 05/15/17 documented as of this encounter Additional Source Comments The information contained in this document represents components of the legal health record. It is not the complete legal health record.[facility]
--- OUTSIDE RECORDS SUMMARY | 2025-01-22 22:04 | XMS_ITS | Encounter Summary ---
Author Organization [facility] Address [address] [facility] [address] [place] [address] Phone Care Team Providers Care Eclectic Doctor Name Role Phone Erik Perkins Primary Care Provider [phone] SuzyErik mojica DO Unavailable Ander Cruz MD Unavailable Encounter Details Date Type Department Care Team (Late st Contact Info) Description 10/25/2023 Procedure Pass [place] Admitting Dept - Virtual Department [address] [place] [address] Social History Tobacco Use Types Packs/Day Years [...] on filedocumented in this encounter Care Teams Eclectic Doctor Relationship Specialty Start Date End Date Erik Perkins DO PCP - General Internal Medicine 05/21/20 Erik Perkins DO Internal Medicine 05/21/20 Ander Cruz MD [address] [place] [address] Hematology and Oncology 05/15/17 documented as of this encounter Additional Source Comments The information contained in this document represents components of the legal health record. It is not the complete legal health record.[facility]
--- OUTSIDE RECORDS SUMMARY | 2025-01-22 22:04 | XMS_ITS | Clinical Summary ---
Author Organization [facility] Address [address] [facility] [address] [place] [address] Phone Care Team Providers Care Tin Flopper Name Role Phone SuzyErik mojica Primary Care Provider [phone] Gregorio Erik Salomon Unavailable Ander Cruz MD Unavailable [phone] Allergies Active Allergy Reactions Criticality Noted [...] Team Description 12/16/2024 Transcribe Orders Virtual Department [address] [place] [address] Arabella Ayala PA Solitary pulmonary nodule (Primary [...] EDT) SODIUM 137 133 - 146 mmol/L [facility] CHLORIDE 102 96 - 108 mmol/L [facility] POTASSIUM 5.1 3.3 - 5.1 mmol/L [facility] Comment:Specimen slightly he molyzed, result may be falsely elevated. CO2 22 21 - 35 mmol/L [facility] BUN 22(H) 6 - 19 mg/dL [facility] CREATININE 0.80 0.5 - 1.5 mg/dL [facility] GLUCOSE 138(H) 70 - 99 mg/dL [facility] CALCIUM 9.7 8.4 - 10.3 mg/dL [facility] EGFR 89 >59 mL/min/1.7 3m2 [facility] Comment:Estimated glomerular filtration rate calculated using the CKD-EPI refit equation. ANION GAP 18 10 - 20 mmol/L [facility] Blood 10/12/2023 11:5 9 AM EDT 10/12/2023 12:02 PM EDT us Tiffany Rodney PA-C LAB BLOOD ORDERABLES Final Result [address] [address] * (ABNORMAL) Hemoglobin A1c (09/25/2023 5:41 AM EDT) HEMOGLOBIN A1C 5.9(H) 4.3 - 5.8 % [facility] 09/25/2023 5:41 AM EDT 09/25/2023 5:59 AM EDT us Allen Desouza DO LAB BLOOD ORDERABLES Final Res ult [address] [address] * (ABNORMAL) Outside LDL (09/23/2010) LDL - External 45(A) 50 - 250 mg/ml us Historical Provider LAB BLOOD ORDERABLES Carrie l Result from Last 3 Months or Most Recently Relevant to Health Maintenance Insurance [employer] SUPPLEMENT MEDICARE PART A & B [employer] SUPPLEMENT MEDICARE PART A & B [employer] SU[employer]MENT MEDICARE PART A & B [employer] SUPPLEMENT MEDICARE PART A & B [employer] SUPPLEMENT MEDICARE PART A & B [employer] SUPPLEMENT MEDICARE PART A & B [employer] SUPPLEMENT MEDICARE PART A & B [employer] MEDEX SUPPLEMENT MEDICARE PART [place] [address] [employer] CROSS MEDEX SUPPLEMENT MEDICARE PART A & B MEDICARE PART A & B [employer] SU[employer]LEMENT MEDICARE PART A & B [employer] SU[employer]LEMENT MEDICARE PART A & B [employer] SUPPLEMENT MEDICARE PART A & B [employer] SUPPLEMENT MEDICARE PART A & B 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 09/28/2023 4:34 PM * Full Code (Latest Code Status on File) Date Activated Date Inactivated Comments 09/24/2023 7:10 AM Question Answer Comments Code Status Confirmed With: Patient Code Status Communicated To: Inpatient Attending Care Teams Tin Flopper Relationship Specialty Start Date End Date Erik Perkins DO [email or web address] PCP - General Internal Medicine 05/21/20 Erik Perkins DO [email or web address] Internal Medicine 05/21/20 Ander Cruz MD [address] [place] [address] [email or web address] Hematology and Oncology 05/15/17 Additional Source Comments The information contained in this document represents components of the legal health record. It is not the complete legal health record.[facility]
--- OUTSIDE RECORDS SUMMARY | 2025-01-22 22:04 | XMS_ITS | Encounter Summary ---
Author Organization [facility] Address [address] [facility] [address] [place] [address] Phone Care Team Providers Care Pest Control Operator Name Role Phone Erik Perkins Primary Care Provider [phone] SuzyErik mojica DO Unavailable Ander Cruz MD Unavailable [phone] Encounter Details Date Type Department Care Team (Late st Contact Info) Description 09/23/2023 Procedure Pass [facility], Ct Scan - [facility] [address] [place] [address] Social History Tobacco Use Types Packs/Day Years [...] 2:57 PM EDT Soledad Quiñonez, DERICK * [place] Suicide Severity Rating Scale (Screener/Recent Self-Report) Question [...] on filedocumented in this encounter Care Teams Pest Control Operator Relationship Specialty Start Date End Date Erik Perkins DO PCP - General Internal Medicine 05/21/20 Erik Perkins DO Internal Medicine 05/21/20 Ander Cruz MD [address] [place], [place] [address] [email or web address] Hematology and Oncology 05/15/17 documented as of this encounter Additional Source Comments The information contained in this document represents components of the legal health record. It is not the complete legal health record.[facility]
--- OUTSIDE RECORDS SUMMARY | 2025-01-22 22:04 | XMS_ITS | Encounter Summary ---
Author Organization [facility] Address [address] [facility] [address] [place] [address] Phone Care Team Providers Care Airport Shuttle Driver Name Role Phone Erik Perkins DO Primary Care Provider [phone] Erik Perkins DO Unavailable Ander Cruz MD Unavailable [phone] Encounter Details Date Type Department Care Team ([facility] st Contact Info) Description 05/11/2023 Transcribe Orders Virtual Department [address] [place] [address] Erik Perkins DO [address] [facility] [place] [address] [place] [address] [email or web address] Nausea and vomiting, unspecified vomiting type (Primary [...] type documented in this encounter Care Teams Airport Shuttle Driver Relationship Specialty Start Date End Date GregorioErikDO [email or web address] PCP - General Internal Medicine 05/21/20 Erik Perkins DO [email or web address] Internal Medicine 05/21/20 Ander Cruz MD [address] [place] [address] [email or web address] Hematology and Oncology 05/15/17 documented as of this encounter Additional Source Comments The information contained in this document represents components of the legal health record. It is not the complete legal health record.[facility]
--- OUTSIDE RECORDS SUMMARY | 2025-01-22 22:04 | XMS_ITS | Encounter Summary ---
Author Organization [facility] Address [address] [facility] [address] [place] [address] Phone Care Team Providers Care Sales And Customer Relations Rep Name Role Phone Erik Perkins DO Primary Care Provider [phone] Erik Perkins DO Unavailable Kathleen Figueroa MD Unavailable [phone] Jeffry Bowman MD Unavailable [phone] Ander Cruz MD Unavailable [phone] Reason for Referral * Outpatient Procedure - Closed Specialty Diagnoses / Procedures Referred By Pablo bob Referred To Contact Diagnoses Atypical chest pain Procedures Adult Echo TTE Erik Perkins DO Phone: tel: fax: mailto:[email or web address] Referral ID Status Reason Start Date Expiration Date Visits Re quested Visits Authorized [id number] Closed 12/08/2020 12/08/2021 1 1 Encounter Details Date Type Department Care Team (Late st Contact Info) Description 12/08/2020 Transcribe Orders Virtual Department [address] [place] [address] Erik Perkins DO [address] [facility] [place] [address] [place] [address] [email or web address] Atypical chest pain (Primary Dx); Chest pain, [...] pain documented in this encounter Care Teams Sales And Customer Relations Rep Relationship Specialty Start Date End Date Erik Perkins DO PCP - General Internal Medicine 05/21/20 Erik Perkins DO Internal Medicine 05/21/20 Kathleen Figueroa MD [address] [place] [address] Orthopedics Sports [facility], [place], [place] [id number] Historical LMR Provider 02/26/17 Jeffry Bowman MD [address] [place] [address] [facility] [place], [place] [id number] Historical LMR Provider 02/26/17 2 Ander Cruz MD [address] [place] [address] Hematology and Oncology 05/15/17 documented as of this encounter Additional Source Comments The information contained in this document represents components of the legal health record. It is not the complete legal health record.[facility]
--- OUTSIDE RECORDS SUMMARY | 2025-01-22 22:04 | XMS_ITS | Encounter Summary ---
Author Organization [facility] Address [address] [facility] [address] [place] [address] Phone Care Team Providers Care Naval Aircrewman Mechanical Name Role Phone Erik Perkins DO Primary Care Provider [phone] Erik Perkins DO Unavailable Kathleen Figueroa MD Unavailable [phone] Jeffry Bowman MD Unavailable [phone] Ander Cruz MD Unavailable Encounter Details Date Type Department Care Team (Late st Contact Info) Description 12/08/2020 Procedure Pass [facility] [address] [place] [address] Social History Tobacco Use Types Packs/Day Years [...] on filedocumented in this encounter Care Teams Naval Aircrewman Mechanical Relationship Specialty Start Date End Date Erik Perkins DO PCP - General Internal Medicine 05/21/20 Erik Perkins DO Internal Medicine 05/21/20 Kathleen Figueroa MD [address] [place] [address] Orthopedics & Sports [facility], [place], [place] [phone] Historical LMR Provider 02/26/17 Jeffry Bowman MD [address] [place] [address] Orthopedics Sports [facility], [place], [place] [id number] Historical LMR Provider 02/26/17 2 Ander Cruz MD [address] [place] [id number] Hematology and Oncology 05/15/17 documented as of this encounter Additional Source Comments The information contained in this document represents components of the legal health record. It is not the complete legal health record.[facility]
--- OUTSIDE RECORDS SUMMARY | 2025-01-22 22:04 | XMS_ITS | Encounter Summary ---
Author Organization [facility] Address [address] [facility] [address] [place] [address] Phone Care Team Providers Care Pharmaceutical Process Engineer Name Role Phone Erik Perkins DO Primary Care Provider [phone] Erik Perkins DO Unavailable Kathleen Figueroa MD Unavailable [phone] Jeffry Bowman MD Unavailable [phone] Ander Cruz MD Unavailable [phone] Encounter Details Date Type Department Care Team (Late st Contact Info) Description 08/17/2020 Transcribe Orders [facility] [address] [place] [address] Erik Perkins DO [address] [facility] [address] [place], [place] [id number] Social History Tobacco Use Types Packs/Day Years [...] on filedocumented in this encounter Care Teams Pharmaceutical Process Engineer Relationship Specialty Start Date End Date Erik Perkins DO PCP - General Internal Medicine 05/21/20 Erik Perkins DO Internal Medicine 05/21/20 Kathleen Figueroa MD [address] [place] [address] Orthopedics Sports [facility], [place], [place] [phone] Historical LMR Provider 02/26/17 Jeffry Bowman MD [address] [place] [address], [place], [place] [id number] Historical LMR Provider 02/26/17 2 Ander Cruz MD [address] [place] [address] Hematology and Oncology 05/15/17 documented as of this encounter Additional Source Comments The information contained in this document represents components of the legal health record. It is not the complete legal health record.[facility]
--- OUTSIDE RECORDS SUMMARY | 2025-01-22 22:04 | XMS_ITS | Encounter Summary ---
Author Organization [facility] Address [address] [facility] [address] [place] [address] Phone Care Team Providers Care Aircraft General Repair Mechanic Name Role Phone SuzyErik mojica Primary Care Provider [phone] Gregorio Erik Salomon Unavailable Ander Cruz MD Unavailable [phone] Encounter Details Date Type Department Care Team (Late st Contact Info) Description 06/06/2023 Procedure Pass [facility], Ct Scan - [facility] [address] [place] [address] Social History Tobacco Use Types Packs/Day Years [...] on filedocumented in this encounter Care Teams Aircraft General Repair Mechanic Relationship Specialty Start Date End Date Erik Perkins DO [email or web address] PCP - General Internal Medicine 05/21/20 SuzyErik mojica DO [email or web address] Internal Medicine 05/21/20 Ander Cruz MD [address] [place] [address] [email or web address] Hematology and Oncology 05/15/17 documented as of this encounter Additional Source Comments The information contained in this document represents components of the legal health record. It is not the complete legal health record.[facility]
--- OUTSIDE RECORDS SUMMARY | 2025-01-22 22:04 | XMS_ITS | Encounter Summary ---
Author Organization [facility] Address [address] [facility] [address] [place] [address] Phone Care Team Providers Care Sales And Service Consultant Name Role Phone SuzyErik mojica Primary Care Provider Suzyyunior Erik Salomon Unavailable Ander Cruz MD Unavailable [phone] Reason for Referral * MRI/CAT Scan - Authorized Specialty Diagnoses / Procedures Referred By Pablo bob Referred To Contact Radiology Diagnoses Solitary pulmonary nodule Procedures CT Chest Arabella Ayala PA [address] [place] [address] [place] [address] Phone: tel: fax: Referral ID Status Reason Start Date Expiration Date V isits Requested Visits Authorized [id number] Authorized 12/16/2024 1 1 Encounter Details Date Type Department Care Team (Latest Contact Info) Description 12/16/2024 Transcribe Orders Virtual Department [address] [place] [address] Arabella Ayala PA [address] [place] [address] [place] [address] Solitary pulmonary nodule (Primary Dx) Social History [...] Primary documented in this encounter Care Teams Sales And Service Consultant Relationship Specialty Start Date End Date Erik Perkins DO [email or web address] PCP - General Internal Medicine 05/21/20 Erik Perkins DO [email or web address] Internal Medicine 05/21/20 Ander Cruz MD [address] [place] [address] [email or web address] Hematology and Oncology 05/15/17 documented as of this encounter Additional Source Comments The information contained in this document represents components of the legal health record. It is not the complete legal health record.[facility]
[2025-01-22 22:24] LABS: MANUAL DIFF FLAG NO
[2025-01-22 22:26] LABS: Hematocrit 39.1 % (42.0-52.0); Hemoglobin 13.3 g/dl (14.0-18.0); Imm Gran Abs Auto 0.04 X10*3/uL (0.00-0.03); Imm Gran Pct Auto 0.4 % (0.0-0.4); Lymphocytes Absolute Auto 0.6 X10*3/uL (1.2-4.9); Mean Corpuscular HGB Conc 34.0 g/dl (31.0-36.0); Mean Corpuscular Hemoglobin 30.4 pg (27.0-33.0); Mean Corpuscular Volume 89.5 fL (80.0-98.0); NRBC Abs Auto 0.000 X10*3/uL (0.0-0.012); NRBC Pct Auto 0.0 /100WBC (0.0-0.2); Platelet Count 182 X10*3/uL (160-400); Red Blood Count 4.37 X10*6/uL (4.60-5.80); White Blood Count 10.2 X10*3/uL (4.8-10.8)
[2025-01-22 22:40] LABS: Alanine Aminotransferase 12 U/L (0-40); Albumin Level 4.4 g/dL (3.5-5.0); Alkaline Phosphatase 99 U/L (39-117); Anion Gap 15 (12-20); Aspartate Amino Transferase 19 U/L (5-37); Blood Urea Nitrogen 24 mg/dL (9-16); Calcium 9.1 mg/dL (8.4-10.2); Carbon Dioxide 22 mmol/L (22-29); Chloride 107 mmol/L (96-108); Creatinine Clr Calc Pharmacy 49.8; Estimated Glomerular Filt Rate > 60; Lipase 10 U/L (8-78); Potassium 4.3 mmol/L (3.3-5.1); Sodium 140 mmol/L (135-145); Total Protein 6.7 g/dL (6.5-8.0)
[2025-01-22 23:43] VITALS: RESP 20
[2025-01-22 23:44] VITALS: BP 145/91; PULSE 79; RESP 20; TEMP 36.6; O2SAT 96
[2025-01-23 00:13] VITALS: RESP 18
[2025-01-23 01:08] VITALS: BP 159/88; PULSE 87; RESP 24; TEMP 36.6; O2SAT 98
[2025-01-23] MEDS: oxyCODONE HCl ER 10 MG TAB.ER.12H PO (01:36)
[2025-01-23] MEDS: oxyCODONE HCl Immed Release 5 MG TABLET PO (01:39)
--- NOTE | 2025-01-23 02:03 | PC.NURSE ---
previously unable to start stream although endorsing urinary urgency. after CT scan pt ambulated with 1 assist, walker to bathroom where he was able to have an unmeasured void of urine. pills whole, thin liquids. previous line blew, new #22 LAC. pt remains alert, oriented, cooperative. controlled afib on tele, occasional ventricular pacer spikes. call del rosario in reach with demonstrated use.
[2025-01-23 04:17] LABS: Appearance Urine Cloudy; Glucose Urine UA 500 mg/dL (Negative); PH 5.5 (5.0-9.0); Specific Gravity - Urine 1.020 (1.005-1.025); UMIC TRIGGER UACC YES
[2025-01-23 04:33] LABS: UACC Culture Trigger YES
[2025-01-23 06:00] VITALS: BP 143/79; PULSE 87; RESP 18; TEMP 36.6; O2SAT 97
--- NOTE | 2025-01-23 07:15 | PC.NURSE ---
report called to Tuyet SEPULVEDA
--- NOTE | 2025-01-23 07:23 | PC.NURSE ---
arrives s/p mech fall tripping and slipping. right flank/rib pain. hx frquent falls. DM, afib Eliquis, pacemaker. alert, oriented. 1 assist with walker OOB. pills whole with water. controlled afib with occasional v pace. appears to have some abrasion/bruising to right flank. #22 LAC. med rec done. question of urine urgency, was able to pee in toilet but not collected. then peed 300mL to urinal without assistance, sent to lab
--- NOTE | 2025-01-23 07:27 | PC.NURSE ---
Addendum entered by Tuyet Ferraro RN 01/23/25 07:32: Chest CT shows Mildly displaced fractures of the right anterior 7th to 9th ribs. Some bruising noted to right posterior rib area. Addendum entered by Tuyet Ferraro RN 01/23/25 07:30: Patient is a 84 yo male with PMH AFIB on Eliquis, CVA, NIDDM, Seizure, hypothyroidism, PPM placement (last checked 11/05), HTN, HLD, GERD, BPH presents to ED s/p mechanical fall in his kitchen. States has had multiple falls recently. Alert and oriented. Lungs essentially clear bilat. Respirations even and non-labored. Difficulty taking a deep breath due to multiple fx ribs. Abdomen flat soft, non-tender with positive bowel sounds. Positive pedal pulses with no edema. Original Note: Medical History Elevated bilirubin Fall BPH (benign prostatic hyperplasia) Stroke Afib Diabetes Essential hypertension History of pulmonary embolism Gallbladder sludge
--- NOTE | 2025-01-23 09:03 | PHA.MEDREC ---
Pharmacy Consult ? Medication Reconciliation Pharmacy has completed the medication reconciliation.Spoke to patient's son Ferny. He confirmed as best he could but admitted he did not know all of the names of the medications. Reviewed patient most recent discharge note and most recent urology note. Family will try to find the discharge information from when he left rehab just a couple of days ago to confiorm medication list.
[2025-01-23] MEDS: fentaNYL 100 MCG PATCH.TD72 TRANSDERMA (10:51)
--- NOTE | 2025-01-23 12:38 | MHC.CM.ED ---
Addendum entered by Loreto Ayala 01/23/25 12:42: Correction: Patient was inpatient at [facility] 12/01[place]. Returned to the ER 12/22 and then transferred to [facility] on 12/23. Original Note: Received case management consult overnight. Patient came to the ER due to a fall. Found to have rib fractures. Physical therapy eval is ordered and pending. Met with patient, daughter Xin and son-in-law, Abner in regards to discharge planning. Patient lives with his son, Sulaiman uses cane/walker for mobility and had no services prior to coming to the ER. PCP verified. Copy of HCP verified to be on file. Patient was inpatient at [facility] and was d/c'd to [facility] on 12/23. Patient was d/c'd home from [facility] on 01/19. Patient states [facility] was supposed to assess patient on Saturday 01/20 but they never arrived. If physical therapy recommends STR, patient is hoping to return to [facility]. [facility] would be 2nd choice. [facility] Continue to monitor for d/c needs.
[2025-01-23 13:30] VITALS: BP 143/79; PULSE 87; O2SAT 97
[2025-01-23] MEDS: fentaNYL 50 MCG PATCH.TD72 TRANSDERMA (13:50)
[2025-01-23 14:00] VITALS: BP 122/63; PULSE 69; RESP 16; TEMP 36.8; O2SAT 95
--- NOTE | 2025-01-23 14:38 | MHC.CM.ED ---
Physical therapy eval completed. Short term rehab is recommended. [facility] not have a bed. [facility] is reviewing. Patient's daughter, Xin, made aware via telephone at [phone]. Continue to monitor for d/c needs.
[2025-01-23 16:59] LABS: Resp Syncy Virus RNA Qual PCR NEGATIVE (Negative); SARS COV2 PCR INHOUSE NEGATIVE (Negative)
[2025-01-23 20:36] VITALS: BP 129/59; PULSE 74; RESP 18; TEMP 36.1; O2SAT 97
[2025-01-23] MEDS: Lidocaine 4 % Patch ADH..PATCH 1 PATCH TRANSDERMA (21:23)
[2025-01-24 05:57] VITALS: BP 100/57; PULSE 70; RESP 18; TEMP 36.6; O2SAT 97
--- NOTE | 2025-01-24 08:41 | PC.NURSE ---
Patient is a 84 yo male with PMH AFIB on Eliquis, CVA, NIDDM, Seizure, hypothyroidism, PPM placement (last checked 11/05), HTN, HLD, GERD, BPH presents to ED s/p mechanical fall in his kitchen. Recently discharged from [facility]. States has had multiple falls recently. Alert and oriented. Lungs essentially clear bilat. Respirations even and non-labored. Difficulty taking a deep breath due to multiple fx ribs. Abdomen flat soft, non-tender with positive bowel sounds. Purewick patent and intact draining ambrocio urine. Positive pedal pulses with no edema. Chest CT shows mildly displaced fractured of the right anterior 7yh to 9th ribs. Some bruising noted to the right posterior rib area. Will provide an incentive spirometer. PT eval completed and STR recommended. Medical History Elevated bilirubin Fall BPH (benign prostatic hyperplasia) Stroke Afib Diabetes Essential hypertension History of pulmonary embolism Gallbladder sludge
[2025-01-24] MEDS: Lidocaine 4 % Patch ADH..PATCH 1 PATCH TRANSDERMA (09:17)
--- NOTE | 2025-01-24 14:18 | MHC.CM.ED ---
Review of STR referrals: no male beds anticipated this weekend. Call placed to sandra Arciniega's dtr to explain situation. She is going to confer with her siblings about other STR options. Directed her to the Medicare website for information. ED CM to follow up tomorrow am.
[2025-01-24 14:44] VITALS: BP 107/58; PULSE 73; RESP 16; TEMP 36.8; O2SAT 97
[2025-01-24 20:59] VITALS: BP 127/63
[2025-01-24 22:00] VITALS: BP 121/60; PULSE 75; RESP 15; TEMP 36.8; O2SAT 98
[2025-01-25 05:46] VITALS: BP 96/56; PULSE 69; RESP 18; TEMP 36.3; O2SAT 96
[2025-01-25 09:04] VITALS: BP 109/58
[2025-01-25] MEDS: Lidocaine 4 % Patch ADH..PATCH 1 PATCH TRANSDERMA (09:07)
[2025-01-25 09:45] VITALS: BP 109/58
--- NOTE | 2025-01-25 10:29 | PC.NURSE ---
Pt is axox3, has purewick in place. Complaining of right sided anterior rib pain, splinting as needed. Has moderate diffuse bruising right posterior ribs and blanchable area on coccyx. Pt has declined AM care with bedbath. Was reluctant to reposition to left hip but has done so. LS CTA but shallow resp. Pt is aware of need for bed mobiity and PO fluids. Incentive spirometer will be brought to bedside. Pt c/o pain despite lidocaine and fentanyl patches. Pt offered PRN tylenol but declining.
--- NOTE | 2025-01-25 11:33 | PC.NURSE ---
Initial contact w/ pt, pt lying in bed watching tv, c/o 8/10 pain despite analgesic patches in place. Pt denies any c/o of sob, incentive spirometer education reviewed w/ patient, pt able to perform return demonstration without diff. 1000 volume.
[2025-01-25 15:27] VITALS: BP 116/63; PULSE 67; RESP 16; TEMP 36.7; O2SAT 98
--- NOTE | 2025-01-25 16:00 | MHC.EDTECH ---
Patient used the commode for bowl movement.
--- NOTE | 2025-01-26 00:28 | PC.NURSE ---
Took over care at 23:00, pt sleeping at this time.
--- NOTE | 2025-01-26 05:29 | PC.NURSE ---
pt sleeping, no sign of distress.
--- NOTE | 2025-01-26 05:36 | PC.NURSE ---
Colace not given from prior shift, medicated per mar, pt repositioned, 700ml of urine empty from pure wick
[2025-01-26 06:00] VITALS: BP 114/68; PULSE 70; RESP 16; TEMP 36.5; O2SAT 99
--- NOTE | 2025-01-26 07:37 | PC.NURSE ---
Care of Pt assumed at change of shift. Pt observed resting quietly with lights dimmed. NAD noted. Awaiting dispo.
[2025-01-26 08:56] VITALS: BP 121/52; PULSE 76; RESP 20; TEMP 37.1; O2SAT 98
[2025-01-26 09:13] VITALS: BP 121/52
[2025-01-26 09:14] VITALS: BP 121/52
[2025-01-26] MEDS: fentaNYL 100 MCG PATCH.TD72 TRANSDERMA (09:22)
[2025-01-26] MEDS: Lidocaine 4 % Patch ADH..PATCH 1 PATCH TRANSDERMA (09:27)
--- NOTE | 2025-01-26 10:59 | PC.NURSE ---
Addendum entered by Peg Michelle RN 01/26/25 11:22: Pt made aware of plans for transport. Original Note: RN to RN report called over to [facility]. Spoke with DERICK Carroll given opportunities for questions and all questions answered to satisfaction. Pt is scheduled for a 1300 departure with S.
[2025-01-26] MEDS: fentaNYL 50 MCG PATCH.TD72 TRANSDERMA (11:07)
[2025-01-26 12:48] VITALS: BP 135/67; PULSE 91; RESP 16; TEMP 36.6; O2SAT 99
[2025-01-26 14:03] VITALS: BP 135/67; PULSE 91; RESP 16; TEMP 36.6; O2SAT 99
== END 2025-01-26 14:04 ==
PROVIDERS: Physician Assistant; Emergency Provider Emergency Medicine; PCP Internal Medicine
DX: S22.41XA Multiple fractures of ribs, right side, initial encounter for closed fracture (principal); N39.0 Urinary tract infection, site not specified; I10 Essential (primary) hypertension; I48.91 Unspecified atrial fibrillation; W19.XXXA Unspecified fall, initial encounter; Y93.89 Activity, other specified; Y92.89 Other specified places as the place of occurrence of the external cause; Y99.8 Other external cause status; Z79.01 Long term (current) use of anticoagulants; Z79.899 Other long term (current) drug therapy
CPT/HCPCS: 36415; 70450; 71250; 72125; 80053; 81001; 83690; 85025; 87086; 87088; 87186; 87637; 93005; 96361; 96374; 97162; 99285; J2270

== ENCOUNTER → 2025-01-22 22:02 | Outpatient (BNV) | payer MEDICARE, SELFPAY | PROVIDERS: Emergency Provider Emergency Medicine; PCP Internal Medicine; Visit Provider Internal Medicine Cardiovascular Disease | DX: I48.91 Unspecified atrial fibrillation (principal) | CPT/HCPCS: 93010 ==

== ENCOUNTER → 2025-01-23 | Outpatient (BNV) | payer MEDICARE, SELFPAY | PROVIDERS: Emergency Provider Emergency Medicine; PCP Internal Medicine; Visit Provider Student in an Organized Health Care Education/Training Program | DX: S22.41XA Multiple fractures of ribs, right side, initial encounter for closed fracture (principal); Z04.3 Encounter for examination and observation following other accident; W19.XXXA Unspecified fall, initial encounter | CPT/HCPCS: 70450; 71250; 72125 ==

== ENCOUNTER 2025-01-27 05:59 | Outpatient (REF) | payer MEDICARE, SELFPAY ==
[2025-01-27 06:01] LABS: MANUAL DIFF FLAG NO
--- OUTSIDE RECORDS SUMMARY | 2025-01-27 06:02 | XMS_ITS | Encounter Summary ---
Author Organization [facility] Address [address] [facility] [address] [place] [address] Phone Care Team Providers Care Easter Bunny Name Role Phone SuzyErik mojica Primary Care Provider [phone] Suzyyunior Erik Salomon Unavailable Ander Cruz MD Unavailable [phone] Reason for Referral * MRI/CAT Scan - Authorized Specialty Diagnoses / Procedures Referred By Pablo bob Referred To Contact Radiology Diagnoses Solitary pulmonary nodule Procedures CT Chest Arabella Ayala PA [address] [place] [address] [place] [address] Phone: tel: fax: Referral ID Status Reason Start Date Expiration Date V isits Requested Visits Authorized [id number] Authorized 12/16/2024 1 1 Encounter Details Date Type Department Care Team (Latest Contact Info) Description 12/16/2024 Transcribe Orders Virtual Department [address] [place] [address] Arabella Ayala PA [address] [place] [address] [place] [address] Solitary pulmonary nodule (Primary Dx) Social History [...] Primary documented in this encounter Care Teams Easter Bunny Relationship Specialty Start Date End Date Erik Perkins DO [email or web address] PCP - General Internal Medicine 05/21/20 Erik Perkins DO [email or web address] Internal Medicine 05/21/20 Ander Cruz MD [address] [place] [address] [email or web address] Hematology and Oncology 05/15/17 documented as of this encounter Additional Source Comments The information contained in this document represents components of the legal health record. It is not the complete legal health record.[facility]
--- OUTSIDE RECORDS SUMMARY | 2025-01-27 06:02 | XMS_ITS | Encounter Summary ---
Author Organization [facility] Address [address] [facility] [address] [place] [address] Phone Care Team Providers Care Paper Sheeter Name Role Phone Erik Perkins DO Primary Care Provider [phone] Erik Perkins DO Unavailable Kathleen Figueroa MD Unavailable [phone] Jeffry Bowman MD Unavailable [phone] Ander Cruz MD Unavailable [phone] Encounter Details Date Type Department Care Team (Late st Contact Info) Description 07/29/2020 Transcribe Orders Virtual Department [address] [place] [address] Erik Perkins DO [address] [facility] [place] [address] [place] [address] [email or web address] Dyspnea on exertion (Primary Dx) [...] Volumes, DLCO, Spirometry with bronchodilator; Performing Location: [facility] (09/14/2020 5:13 PM EDT) FEV1 FVC FEV1/FVC [...] abnormality documented in this encounter Care Teams Paper Sheeter Relationship Specialty Start Date End Date Erik Perkins DO PCP - General Internal Medicine 05/21/20 Erik Perkins DO Internal Medicine 05/21/20 Kathleen Figueroa MD [address] [place] [address] Orthopedics [facility], [place] [address] Historical LMR Provider 02/26/17 Jeffry Bowman MD [address] [place] [address] [facility], [place], [place] [id number] Historical LMR Provider 02/26/17 2 Ander Cruz MD [address] [place] [address] [email or web address] Hematology and Oncology 05/15/17 documented as of this encounter Additional Source Comments The information contained in this document represents components of the legal health record. It is not the complete legal health record.[facility]
--- OUTSIDE RECORDS SUMMARY | 2025-01-27 06:02 | XMS_ITS | Clinical Summary ---
Author Organization [facility] Address [address] [facility] [address] [place] [address] Phone Care Team Providers Care Mechanical Engineering Technician Name Role Phone SuzyErik mojica Primary Care Provider [phone] Gregorio Erik Salomon Unavailable Ander Cruz MD Unavailable [phone] Allergies Active Allergy Reactions Criticality Noted [...] Team Description 12/16/2024 Transcribe Orders Virtual Department [address] [place] [address] Arabella Ayala PA Solitary pulmonary nodule (Primary [...] EDT) SODIUM 137 133 - 146 mmol/L [facility] CHLORIDE 102 96 - 108 mmol/L [facility] POTASSIUM 5.1 3.3 - 5.1 mmol/L [facility] Comment:Specimen slightly he molyzed, result may be falsely elevated. CO2 22 21 - 35 mmol/L [facility] BUN 22(H) 6 - 19 mg/dL [facility] CREATININE 0.80 0.5 - 1.5 mg/dL [facility] GLUCOSE 138(H) 70 - 99 mg/dL [facility] CALCIUM 9.7 8.4 - 10.3 mg/dL [facility] EGFR 89 >59 mL/min/1.7 3m2 [facility] Comment:Estimated glomerular filtration rate calculated using the CKD-EPI refit equation. ANION GAP 18 10 - 20 mmol/L [facility] Blood 10/12/2023 11:5 9 AM EDT 10/12/2023 12:02 PM EDT us Tiffany Rodney PA-C LAB BLOOD ORDERABLES Final Result [address] [address] * (ABNORMAL) Hemoglobin A1c (09/25/2023 5:41 AM EDT) HEMOGLOBIN A1C 5.9(H) 4.3 - 5.8 % [facility] 09/25/2023 5:41 AM EDT 09/25/2023 5:59 AM EDT us Allen Desouza DO LAB BLOOD ORDERABLES Final Res ult [address] [address] * (ABNORMAL) Outside LDL (09/23/2010) LDL - External 45(A) 50 - 250 mg/ml us Historical Provider LAB BLOOD ORDERABLES Carrie l Result from Last 3 Months or Most Recently Relevant to Health Maintenance Insurance [place] MEDEX SUPPLEMENT MEDICARE PART A & B [place] MED[employer] SUPPLEMENT MEDICARE PART A & B [place] MED[employer] SUPPLEMENT MEDICARE PART A & B [place] MEDEX SUPPLEMENT MEDICARE PART A & B [place] MEDEX SUPPLEMENT MEDICARE PART A & B [place] MEDEX SUPPLEMENT MEDICARE PART A & B [place] MEDEX SUPPLEMENT MEDICARE PART A & B [employer] MEDEX SUPPLEMENT MEDICARE PART A [place] [address] [employer] MEDEX SUPPLEMENT MEDICARE PART A & B MEDICARE PART A & B [place] MEDEX SUPPLEMENT MEDICARE PART A & B [place] MEDEX SUPPLEMENT MEDICARE PART A & B [place] MEDEX SUPPLEMENT MEDICARE PART A & B [place] MEDEX SUPPLEMENT MEDICARE PART A & B [facility] MEDEX SUPPLEMENT MEDICARE PART A & B [employer] MEDEX SUPPLEMENT MEDICARE PART A & B [place] MEDEX SUPPLEMENT MEDICARE PART A & B [employer] MEDEX SUPPLEMENT MEDICARE PART A & B [employer] MEDEX SUPPLEMENT Advance Directives For more information, please contact: [phone] (9AM - 5PM Teresa/[facility], Sunday-Sunday) Documents on File Type Date Recorded 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 09/28/2023 4:34 PM * Full Code (Latest Code Status on File) Date Activated Date Inactivated Comments 09/24/2023 7:10 AM Question Answer Comments Code Status Confirmed With: Patient Code Status Communicated To: Inpatient Attending Care Teams Mechanical Engineering Technician Relationship Specialty Start Date End Date Erik Perkins DO [email or web address] PCP - General Internal Medicine 05/21/20 Erik Perkins DO [email or web address] [facility] 05/21/20 Ander Cruz MD [address] [place] [address] [email or web address] Hematology and Oncology 05/15/17 Additional Source Comments The information contained in this document represents components of the legal health record. It is not the complete legal health record.[facility]
--- OUTSIDE RECORDS SUMMARY | 2025-01-27 06:02 | XMS_ITS | Encounter Summary ---
Author Organization [facility] Address [address] [facility] [address] [place] [address] Phone Care Team Providers Care Laundry Tech Name Role Phone Erik Perkins DO Primary Care Provider [phone] Erik Perkins DO Unavailable Ander Cruz MD Unavailable [phone] Reason for Referral * MRI/CAT Scan - Closed Specialty Diagnoses / Procedures Referred By Pablo bob Referred To Contact Radiology Diagnoses Nonintractable headache, unspecified chronicity pattern, unspecified headache type Procedures CT Head Erik Perkins DO Phone: tel: fax: mailto:[email or web address] Referral ID Status Reason Start Date Expiration Date Visits Re quested Visits Authorized [id number] Closed 06/06/2023 1 1 Encounter Details Date Type Department Care Team ([facility] st Contact Info) Description 06/06/2023 Transcribe Orders Virtual Department 30 [place] [address] Erik Perkins DO [address] [facility] [place] [address] [email or web address] Nonintractable headache, unspecified chronicity pattern, unspecified headache [...] clinician's provided indication for this examination in [facility]: Outside Radiology Order; HEADACHE TECHNIQUE: Multidetector-row [...] clinician's provided indication for this examination in [facility]:Outside Radiology Order; HEADACHE TECHNIQUE: Multidetector-row CT [...] type documented in this encounter Care Teams Laundry Tech Relationship Specialty Start Date End Date Erik Perkins DO PCP - General Internal Medicine 05/21/20 Erik Perkins DO Internal Medicine 05/21/20 Ander Cruz MD [address] [place], [place] [id number] [email or web address] Hematology and Oncology 05/15/17 documented as of this encounter Additional Source Comments The information contained in this document represents components of the legal health record. It is not the complete legal health record.[facility]
--- OUTSIDE RECORDS SUMMARY | 2025-01-27 06:02 | XMS_ITS | Encounter Summary ---
Author Organization [facility] Address [address] [place] [address] Phone Care Team Providers Care Hotbed Lever Operator Name Role Phone Erik Perkins Primary Care Provider [phone] SuzyErik mojica DO Unavailable Ander Cruz MD Unavailable [phone] Encounter Details Date Type Department Care Team (Late st Contact Info) Description 09/23/2023 Procedure Pass [facility], [facility] [address] [place] [address] Social History Tobacco Use Types Packs/Day Years [...] 2:57 PM EDT Soledad Quiñonez, DERICK * [place] Suicide Severity Rating Scale (Screener/Recent Self-Report) Question [...] on filedocumented in this encounter Care Teams Hotbed Lever Operator Relationship Specialty Start Date End Date Erik Perkins DO PCP - General Internal Medicine 05/21/20 Erik Perkins DO Internal Medicine 05/21/20 Ander Cruz MD [address] [place] [address] [email or web address] Hematology and Oncology 05/15/17 documented as of this encounter Additional Source Comments The information contained in this document represents components of the legal health record. It is not the complete legal health record.[facility]
--- OUTSIDE RECORDS SUMMARY | 2025-01-27 06:02 | XMS_ITS | Encounter Summary ---
Author Organization [facility] Address [address] [facility] [address] [place] [address] Phone Care Team Providers Care Signal Helper Name Role Phone Erik Perkins DO Primary Care Provider [phone] Erik Perkins DO Unavailable Kathleen Figueroa MD Unavailable [phone] Jeffry Bowman MD Unavailable [phone] Ander Cruz MD Unavailable [phone] Reason for Referral * Outpatient Procedure - Closed Specialty Diagnoses / Procedures Referred By Pablo bob Referred To Contact Diagnoses Atypical chest pain Procedures Adult Echo TTE Erik Perikns DO Phone: tel: fax: mailto:[email or web address] Referral ID Status Reason Start Date Expiration Date Visits Re quested Visits Authorized [id number] Closed 12/08/2020 12/08/2021 1 1 Encounter Details Date Type Department Care Team (Late st Contact Info) Description 12/08/2020 Transcribe Orders Virtual Department 30 [place] [address] Erik Perkins DO [address] [facility] [place] [address] [email or web address] Atypical chest pain (Primary Dx); Chest pain, [...] pain documented in this encounter Care Teams Signal Helper Relationship Specialty Start Date End Date Erik Perkins DO PCP - General Internal Medicine 05/21/20 Erik Perkins DO Internal Medicine 05/21/20 Kathleen Figueroa MD [address] [place] [address] Orthopedics [facility], [place], [place] [id number] Historical LMR Provider 02/26/17 Jeffry Bowman MD [address] [place] [address] [facility] [place], [place] [id number] Historical LMR Provider 02/26/17 2 Ander Cruz MD [address] [place] [address] Hematology and Oncology 05/15/17 documented as of this encounter Additional Source Comments The information contained in this document represents components of the legal health record. It is not the complete legal health record.[facility]
--- OUTSIDE RECORDS SUMMARY | 2025-01-27 06:02 | XMS_ITS | Encounter Summary ---
Author Organization [facility] Address [address] [facility] [address] [place] [address] Phone Care Team Providers Care Mold Worker Name Role Phone Erik Perkins DO Primary Care Provider [phone] Erik Perkins DO Unavailable Kathleen Figueroa MD Unavailable [phone] Jeffry Bowman MD Unavailable [phone] Ander Cruz MD Unavailable [phone] Encounter Details Date Type Department Care Team (Late st Contact Info) Description 08/17/2020 Transcribe Orders [facility] [address] [place] [address] Erik Perkins DO [address] [facility] [address] [place], [place] [id number] [email or web address] Social History Tobacco Use Types Packs/Day Years [...] on filedocumented in this encounter Care Teams Mold Worker Relationship Specialty Start Date End Date Erik Perkins DO PCP - General Internal Medicine 05/21/20 Erik Perkins DO Internal Medicine 05/21/20 Kathleen Figueroa MD [address] [place] [address] Orthopedics Sports [facility], [place], [place] [phone] Historical LMR Provider 02/26/17 Jeffry Bowman MD [address] [place] [address], [place], [place] [id number] Historical LMR Provider 02/26/17 2 Ander Cruz MD [address] [place] [address] Hematology and Oncology 05/15/17 documented as of this encounter Additional Source Comments The information contained in this document represents components of the legal health record. It is not the complete legal health record.[facility]
--- OUTSIDE RECORDS SUMMARY | 2025-01-27 06:02 | XMS_ITS | Encounter Summary ---
Author Organization [facility] Address [address] [facility] [address] [place] [address] Phone Care Team Providers Care Jewel Grinder Name Role Phone Erik Perkins Primary Care Provider [phone] SuzyErik mojica DO Unavailable Ander Cruz MD Unavailable [phone] Encounter Details Date Type Department Care Team (Late st Contact Info) Description 10/25/2023 Procedure Pass [place] Admitting Dept - Virtual Department 30 [place] [address] Social History Tobacco Use Types Packs/Day Years [...] on filedocumented in this encounter Care Teams Jewel Grinder Relationship Specialty Start Date End Date Erik Perkins DO PCP - General Internal Medicine 05/21/20 Erik Perkins DO Internal Medicine 05/21/20 Ander Cruz MD [address] [place] [address] Hematology and Oncology 05/15/17 documented as of this encounter Additional Source Comments The information contained in this document represents components of the legal health record. It is not the complete legal health record.[facility]
--- OUTSIDE RECORDS SUMMARY | 2025-01-27 06:02 | XMS_ITS | Encounter Summary ---
Author Organization [facility] Address [address] [facility] [address] [place] [address] Phone Care Team Providers Care Precision Aircraft Systems Assembler Name Role Phone Erik Perkins DO Primary Care Provider [phone] Erik Perkins DO Unavailable Ander Cruz MD Unavailable [phone] Encounter Details Date Type Department Care Team ([facility] st Contact Info) Description 05/11/2023 Transcribe Orders Virtual Department [address] [place] [address] Erik Perkins DO [address] [facility] [place] [address] [place] [address] Nausea and vomiting, unspecified vomiting type (Primary [...] type documented in this encounter Care Teams Precision Aircraft Systems Assembler Relationship Specialty Start Date End Date GregorioErikDO [email or web address] PCP - General Internal Medicine 05/21/20 Eirk Perkins DO [email or web address] Internal Medicine 05/21/20 Ander Cruz MD [address] [place] [address] [email or web address] Hematology and Oncology 05/15/17 documented as of this encounter Additional Source Comments The information contained in this document represents components of the legal health record. It is not the complete legal health record.[facility]
--- OUTSIDE RECORDS SUMMARY | 2025-01-27 06:02 | XMS_ITS | Encounter Summary ---
Author Organization [facility] Address [address] [facility] [address] [place] [address] Phone Care Team Providers Care Drug Regulatory Affairs Specialist Name Role Phone SuzyErik mojica Primary Care Provider [phone] Gregorio Erik Salomon Unavailable Ander Cruz MD Unavailable [phone] Encounter Details Date Type Department Care Team (Late st Contact Info) Description 06/06/2023 Procedure Pass [facility], Ct Scan - [facility] [address] [place] [address] Social History Tobacco Use Types Packs/Day Years [...] on filedocumented in this encounter Care Teams Drug Regulatory Affairs Specialist Relationship Specialty Start Date End Date Erik Perkins DO [email or web address] PCP - General Internal Medicine 05/21/20 SuzyErik mojica DO [email or web address] Internal Medicine 05/21/20 Ander Cruz MD [address] [place] [address] [email or web address] Hematology and Oncology 05/15/17 documented as of this encounter Additional Source Comments The information contained in this document represents components of the legal health record. It is not the complete legal health record.[facility]
--- OUTSIDE RECORDS SUMMARY | 2025-01-27 06:02 | XMS_ITS | Encounter Summary ---
Author Organization [facility] Address [address] [place] [address] Phone Care Team Providers Care Pet House Sitter Name Role Phone Erik Perkins Primary Care Provider [phone] SuzyErik mojica DO Unavailable Ander Cruz MD Unavailable [phone] Encounter Details Date Type Department Care Team (Late st Contact Info) Description 09/23/2023 Procedure Pass [facility], Ct Scan - [facility] [address] [place] [address] Social History Tobacco Use Types Packs/Day Years [...] 2:57 PM EDT Soledad Quiñonez, DERICK * [place] Suicide Severity Rating Scale (Screener/Recent Self-Report) Question [...] on filedocumented in this encounter Care Teams Pet House Sitter Relationship Specialty Start Date End Date Erik Perkins DO PCP - General Internal Medicine 05/21/20 Erik Perkins DO Internal Medicine 05/21/20 Ander Cruz MD [address] [place], [place] [address] [email or web address] Hematology and Oncology 05/15/17 documented as of this encounter Additional Source Comments The information contained in this document represents components of the legal health record. It is not the complete legal health record.[facility]
--- OUTSIDE RECORDS SUMMARY | 2025-01-27 06:02 | XMS_ITS | Encounter Summary ---
Author Organization [facility] Address [address] [facility] [address] [place] [address] Phone Care Team Providers Care County Nurse Name Role Phone Erik Perkins DO Primary Care Provider [phone] Erik Perkins DO Unavailable Kathleen Figueroa MD Unavailable [phone] Jeffry Bowman MD Unavailable [phone] Ander Cruz MD Unavailable Encounter Details Date Type Department Care Team (Late st Contact Info) Description 12/08/2020 Procedure Pass [facility] 30 [place] [address] Social History Tobacco Use Types Packs/Day Years [...] on filedocumented in this encounter Care Teams County Nurse Relationship Specialty Start Date End Date Erik Perkins DO PCP - General Internal Medicine 05/21/20 Erik Perkins DO Internal Medicine 05/21/20 Kathleen Figueroa MD [address] [place] [address] Orthopedics & Sports [facility], [place], [place] [id number] Historical LMR Provider 02/26/17 Jeffry Bowman MD [address] [place] [address] Orthopedics Sports [facility], [place], [place] [id number] Historical LMR Provider 02/26/17 2 Ander Cruz MD [address] [place] [id number] Hematology and Oncology 05/15/17 documented as of this encounter Additional Source Comments The information contained in this document represents components of the legal health record. It is not the complete legal health record.[facility]
[2025-01-27 06:48] LABS: Alanine Aminotransferase < 6 U/L (0-40); Albumin Level 3.3 g/dL (3.5-5.0); Alkaline Phosphatase 102 U/L (39-117); Anion Gap 13 (12-20); Aspartate Amino Transferase 21 U/L (5-37); Blood Urea Nitrogen 18 mg/dL (9-16); Calcium 8.6 mg/dL (8.4-10.2); Carbon Dioxide 21 mmol/L (22-29); Chloride 109 mmol/L (96-108); Estimated Glomerular Filt Rate > 60; Potassium 4.9 mmol/L (3.3-5.1); Sodium 138 mmol/L (135-145); Total Protein 5.7 g/dL (6.5-8.0)
[2025-01-27 07:03] LABS: Hematocrit 36.8 % (42.0-52.0); Hemoglobin 12.6 g/dl (14.0-18.0); Imm Gran Abs Auto 0.04 X10*3/uL (0.00-0.03); Imm Gran Pct Auto 0.4 % (0.0-0.4); Lymphocytes Absolute Auto 2.5 X10*3/uL (1.2-4.9); Mean Corpuscular HGB Conc 34.2 g/dl (31.0-36.0); Mean Corpuscular Hemoglobin 30.8 pg (27.0-33.0); Mean Corpuscular Volume 90.0 fL (80.0-98.0); NRBC Abs Auto 0.000 X10*3/uL (0.0-0.012); NRBC Pct Auto 0.0 /100WBC (0.0-0.2); Platelet Count 238 X10*3/uL (160-400); Red Blood Count 4.09 X10*6/uL (4.60-5.80); White Blood Count 9.0 X10*3/uL (4.8-10.8)
[2025-01-27 07:27] LABS: Hemoglobin A1C 226.8455 umol/L; Total Hemoglobin (HGBA1C) 4590.8084 umol/L
== END 2025-01-27 06:00 | disposition home or self-care (01) ==
LOC: HO.MMNH1L 05:59
DX: Z13.1 Encounter for screening for diabetes mellitus (principal); R07.81 Pleurodynia
CPT/HCPCS: 36415; 80053; 83036; 85025

== ENCOUNTER → 2025-04-14 09:24 | Outpatient (BNV) | payer MEDICARE, SELFPAY | PROVIDERS: PCP Internal Medicine; Visit Provider Internal Medicine | DX: I48.19 Other persistent atrial fibrillation (principal); Z95.0 Presence of cardiac pacemaker | CPT/HCPCS: 93294 ==

== ENCOUNTER 2025-04-21 15:33 | Outpatient (REF) | payer MEDICARE, SELFPAY ==
[2025-04-21 18:10] LABS: MANUAL DIFF FLAG NO
[2025-04-21 18:22] LABS: Hematocrit 40.9 % (42.0-52.0); Hemoglobin 13.3 g/dl (14.0-18.0); Imm Gran Abs Auto 0.01 X10*3/uL (0.00-0.03); Imm Gran Pct Auto 0.2 % (0.0-0.4); Lymphocytes Absolute Auto 2.0 X10*3/uL (1.2-4.9); Mean Corpuscular HGB Conc 32.5 g/dl (31.0-36.0); Mean Corpuscular Hemoglobin 28.5 pg (27.0-33.0); Mean Corpuscular Volume 87.6 fL (80.0-98.0); NRBC Abs Auto 0.000 X10*3/uL (0.0-0.012); NRBC Pct Auto 0.0 /100WBC (0.0-0.2); Platelet Count 220 X10*3/uL (160-400); Red Blood Count 4.67 X10*6/uL (4.60-5.80); White Blood Count 6.4 X10*3/uL (4.8-10.8)
[2025-04-21 18:37] LABS: Alanine Aminotransferase 11 U/L (0-40); Albumin Level 4.7 g/dL (3.5-5.0); Alkaline Phosphatase 99 U/L (39-117); Anion Gap 15 (12-20); Aspartate Amino Transferase 14 U/L (5-37); Blood Urea Nitrogen 15 mg/dL (9-16); Calcium 9.5 mg/dL (8.4-10.2); Carbon Dioxide 24 mmol/L (22-29); Chloride 104 mmol/L (96-108); Estimated Glomerular Filt Rate > 60; Potassium 4.8 mmol/L (3.3-5.1); Sodium 138 mmol/L (135-145); Total Protein 6.8 g/dL (6.5-8.0)
--- OUTSIDE RECORDS SUMMARY | 2025-04-21 22:18 | XMS_ITS | Encounter Summary ---
Author Organization [facility] Address [address] [place] [id number] Phone Care Team Providers Care Ancillary Services Manager Therapy Name Role Phone Erik Perkins DO Primary Care Provider [phone] Erik Perkins DO Unavailable Kathleen Figueroa MD Unavailable [phone] Jeffry Bowman MD Unavailable [phone] Ander Cruz MD Unavailable [phone] Encounter Details Date Type Department Care Team (Late st Contact Info) Description 12/08/2020 Procedure Pass [facility] [address] [place] [address] Social History Tobacco Use Types Packs/Day Years [...] on filedocumented in this encounter Care Teams Ancillary Services Manager Therapy Relationship Specialty Start Date End Date Erik Perkins DO PCP - General Internal Medicine 05/21/20 Erik Perkins DO Internal Medicine 05/21/20 Kathleen Figueroa MD [address] [place] [address] [facility], [place], [place] [id number] Historical LMR Provider 02/26/17 Jeffry Bowman MD [address] [place] [address] [facility], [place], [place] [id number] Historical LMR Provider 02/26/17 2 Andre Cruz MD [address] [place] [address] [id number] Hematology and Oncology 05/15/17 documented as of this encounter Additional Source Comments The information contained in this document represents components of the legal health record. It is not the complete legal health record.[facility]
--- OUTSIDE RECORDS SUMMARY | 2025-04-21 22:18 | XMS_ITS | Data Portability ---
Author Organization [facility], Telehealth Patient Home Address [address] [place] [address] Assessment Encounter Date Assessment Date Assessment LastModified by Organization Details LastModified Time 08/11/2024 08/11/2024 [id number] [place] [id number] (CARE PARTNER) : MDM LOW MUST MEET 2 OF [...] THE ELEMENTS COVERED Not available 08/11/2024 12:00:21 04/21/2025 04/21/20[place] [id number] [place] [id number] (CARE PARTNER) MDM MODERATE MUST MEET 2 OUT OF [...] EACH ELEMENT THAT IS COVERED Not available 04/21/2025 15:25:40 Plan of Treatment Reminders Order Date Submit Date Provider Last Modified By Organization Details Last Modified Time Details Appointments FOLLOW UP 15 2024 03:00P M DR SHAW Not available Not available Not available Lab hemoglobi n A1c, QN, blood 2024 025 [facility], [address] [place] [address], [id number], 04/21/2025 15:30:33 CMP, serum or plasma 2024 025 [facility], [address] [place] [address], [id number], 04/21/2025 15:30:33 CBC w/ auto diff 2024 025 [facility], [address] [place] [address], [id number], 04/21/2025 15:30:33 HbA1c (hemoglob in A1c), blood 2024 025 [facility], [address] [place] [address], [id number], 08/11/2024 11:55:58 CMP, serum or plasma 2024 025 [facility], [address] [place] [address], [id number], 09/10/2024 14:01:39 CBC 2024 025 [facility], [address] [place] [address], [id number], 08/11/2024 11:55:58 microalbu min, urine 2024 025 [facility], [address] [place] [address], [address], 08/11/2024 11:55:58 CBC w/ auto diff 2023 024 [facility], [address] [place] [address], [place], [address], 11/19/2023 13:52:52 CMP, serum or plasma 2023 024 [facility], [address] [place] [address], [place], [address], 11/19/2023 13:52:52 TSH + free T4, serum 2023 [facility], [address] [place] [address], [address], 11/19/2023 13:52:52 T3, free, serum or plasma 2023 024 [facility], [address] [place] [address], [address], 11/19/2023 13:52:52 Referral gastroent erologist referral 2024 denisa Lundberg MD, [address] [place] [address] Wally Pablo, [place], [address], 12/16/2024 08:27:21 Procedures None recorded. Surgeries None recorded. Imaging CT, chest, w/o contrast 2024 025 [facility], [address] [place] [address], [address], 12/16/2024 08:27:03 Medication Orders atorvasta tin 80 mg tablet 2023 024 [facility] #32517, [address], [place], [id number], 11/19/2023 13:45:22 metformin 500 mg tablet 2023 024 [facility] #70299, [address], [place], [id number], 11/19/2023 13:46:04 levetirac etam 500 mg tablet 2023 024 [facility] #21510, [address], [place], [id number], 11/19/2023 13:45:24 tamsulosi n 0.4 mg capsule 2023 024 [facility] #86223, [address], [place], [id number], 11/19/2023 13:45:27 amlodipin e 10 mg tablet 2023 024 [facility] #46937, [address], [place], [id number], 11/19/2023 13:45:28 lisinopri l 10 mg tablet 2023 024 [facility] #49878, [address], [place], [id number], 11/19/2023 13:46:48 mirtazapi ne 15 mg tablet 2023 024 [facility] #58341, [address], [place], [id number], 11/19/2023 13:45:22 omeprazol e 20 mg capsule,d elayed release 2023 024 [facility] #61214, [address], [place], [id number], 11/19/2023 13:45:26 Patient TargetsNo targets recorded. Patient Instructions Encounter Date Encounter Id Patient Instructions Last Modified By Organization Details Last Modified Time 04/21/2025 [id number] pulse oximetry* ELIAN Not available 04/21/2025 15:36:02 Reason for Referral [employer] Referral for Chronic constipation ongoing issues with constipation Referring Physician: Arabella Ayala, Internal Medicine, Encounter Date: 12/15/2024 Results Created Date Observation Date Name Description Value Unit Range Abnormal Flag Note LastModifiedBy Organization Detail LastModifiedTime 10/22/19 24 10/19/2023 XR, chest , 2 view No observ ation record ed. [address] (Medical Records) [address] [facility] [place], [address], 10/22/2023 13:44:41 10/22/19 24 10/19/2023 XR, chest , w/ fluor oscop y No observ ation record ed. [address] (Medical Records) [address] [place], [address], 10/22/2023 13:45:12 12/01/19 25 11/30/2024 CT, abdom en + pelvi s, w/ contr ast No observ ation record ed. [address] (Medical Records) [address] [facility] [place], [address], 12/01/2024 08:34:44 12/02/19 25 11/30/2024 US, abdom en, limit ed No observ ation record ed. [address] (Medical Records) [address] [facility] [place], [address], 12/01/2024 08:35:26 12/06/19 25 12/04/2024 CT, angio gram, head + neck, w/wo contr ast No observ ation record ed. [email or web address] [facility] (Medical Records) [address] [place], [address], 12/05/2024 09:07:47 12/06/19 25 12/04/2024 XR, humer us No observ ation record ed. [facility] (Medical Records) [address] [place], [address], 12/05/2024 09:09:36 12/06/19 25 12/04/2024 XR, shoul lyn No observ ation record ed. [facility] (Medical Records) [address] [place], [address], 12/05/2024 09:23:06 12/06/1912/04/2024 XR, shoul lyn No observ ation record ed. [email or web address] [facility] (Medical Records) [address] [place], [address], 12/05/2024 09:09:51 01/24/2001/23/2025 CT, head + brain , w/o contr ast No observ ation record ed. [email or web address] (Medical Records) [address] [facility] [place] [place], [address], 01/23/2025 09:00:43 01/24/2001/23/2025 CT, chest , w/o contr ast No observ ation record ed. [address] (Medical Records) [address] [place], [address], 01/23/2025 09:00:53 01/24/2001/23/2025 CT, cervi michelle spine , w/o contr ast No observ ation record ed. [email or web address] (Medical Records) [address] [place], [address], 01/23/2025 09:01:06 Result Notes None recorded. Problems Name Problem SNOMED Code Status Onset Date Resolution Date Notes Provider Name and Address Organization Details Recorded Time Type 2 diabetes mellitus 48370079 Active 2017 Not Available [facility] 3 11:56:21 Diverticu lar disease 203666915 Active 2017 Not Available [facility] 3 11:56:21 Migraine without aura 47154679 Active 2017 Not Available [facility] 3 11:56:21 Essential hypertens ion 51484854 Active 2017 Not Available [facility] 3 11:56:21 Squamous cell carcinoma of skin 560606062 Active 2017 face Not Available [facility] 3 11:56:21 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 08368699 Active 2017 Not Available [facility] 3 11:56:21 Post-lami nectomy syndrome 51625300 Active 2017 Not Available [facility] 3 11:56:21 Myofascia l pain syndrome 254236047 Active 2017 Not Available [facility] 3 11:56:21 Radicular pain 68609048 Active 2017 lumbar Not Available [facility] 3 11:56:21 Obstructi ve sleep apnea syndrome 86321702 Active 2017 on CPAP Not Available [facility] 3 11:56:22 Hyperchol esterolem ia 51650416 Active 2017 Not Available [facility] 3 11:56:21 Cervico-o ccipital neuralgia 01565138 Active 2017 Not Available [facility] 3 11:56:21 Chronic atrial fibrillat ion 395756614 Active 2019 Not Available [facility] 3 11:56:21 Therapeut ic opioid induced constipat ion 96312241518 9102 Active 2019 Not Available [facility] 3 11:56:21 Atrial fibrillat ion 69588465 Active 2021 Not Available [facility] 3 11:56:21 Acquired right hallux valgus 38858306663 4106 Active 2021 Not Available [facility] 3 11:56:21 Chronic pain 94411940 Active 2021 Not Available [facility] 3 11:56:22 Diabetic foot ulcer 515982895 Active 2021 Not Available [facility] 3 11:56:21 Actinic keratosis 826462198 Active 2022 Not Available [facility] 3 11:56:21 Intractab le nausea and vomiting 760267797 Active 2022 Erik Shaw, DO [address] [facility], [place], [address], [facility] [place] 3 14:26:39 Diffuse spasm of esophagus 79087641 Active 2023 Erik Shaw DO [address] [place] [address], [address], [facility], [place] 4 13:57:14 Headache 74774807 Active 2023 Erik Shaw DO [address] [place] [address], [address], [facility], [place] 4 14:01:14 Impacted cerumen of bilateral ears 93013027758 88439 Active 2023 JANY LONG [address] [place] [address], [address], [facility], [place] 4 15:18:08 Cerebrova scular accident 553996586 Active 2023 JANY LONG [address] [place] [address], [address], [facility], [place] 4 13:37:07 Cholecyst itis 82948324 Active 2023 JANY LONG [address] [place] [address], [address], [facility], [place] 4 13:39:08 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 467130456 Active 2023 JANY LONG [address] [place] [address], [address], [facility], [place] 4 13:40:30 Depressiv e disorder 08107935 Active 2023 JANY LONG [address] [place] [address], [address], [facility], [place] 4 13:41:00 Seizure disorder 472651181 Active 2023 JANY LONG [address] [place] [address], [address], [facility], [place] 4 13:42:42 Subclinic al hyperthyr oidism 060796568 Active 2023 JANY LONG [address] [place] [address], [address], [facility], [place] 4 13:50:37 Chronic constipat ion 373432726 Active 2024 JANY LONG [address] [place] [address], [address], [facility], [place] 5 13:11:49 Biliary sludge 96742927 Active 2024 JANY LONG [address] [place] [address], [address], [facility], [place] 5 13:12:05 Common bile duct calculus 757688274 Active 2024 JANY LONG [address] [place] [address], [address], [facility], [place] 5 13:12:19 Nodule of lung 252882696 Active 2024 JANY LONG [address] [place] [address], [address], [facility], [place] 5 13:12:59 Retention of urine 242375999 Active 2024 JANY LONG [address] [place] [address], [address], [facility], [place] 5 15:42:01 Recurrent urinary tract infection 220983440 Active 2024 JANY LONG [address] [place] [address], [address], [facility], [place] 5 09:02:20 Complicat ion of urinary catheter 495164753 Active 2024 JANY LONG [address] [place] [address], [address], [facility], [place] 5 09:02:41 Recurrent falls 120362084 Active 2024 JANY LONG [address] [place] [address], [address], [facility], [place] 5 09:02:57 Spasm 49320267 Active 2024 Erik Shaw DO [address] [place], [address], [facility], [place] 5 13:48:01 Problem Notes None recorded. Procedures Surgical History Date Name Laterality Status Provider Name and Address Organization Details Recorded Time 08/21/19 24 Cerumen Removal completed JANY LONG [address] [place], [address], [facility], [place] 08/21/2023 15:18:01 04/19/20 18 Family Practice Trigger Point Injection completed Erik Shaw DO [address] [place] [address], [address], [facility], [place] 04/19/2018 11:50:49 Imaging Results None recorded. Procedure Notes None recorded. Medical Equipment None Reported. Allergies Allergen ID Allergen Name Allergen Category Reaction Reaction Severity Criticality Documentation Date Start Date Code Code System Note Provider Name and Address Organization Details Recorded Time 70683 Product containin g penicilli n (product) medicatio n Not available Not available Not available 04/11/20252018 42886 8001 SNOMED Not Available elian - External Data Service - prod 16:13:48 728 penicilli n V Not available hives Not available Not available 08/08/2017 7984 RxNorm Leigh Ruvalcaba [facility] 8 11:55:06 Medications Name Sig Start Date Stop Date Status Note LastModified by Organization Details LastModified Time Prescriptio n - Prior Authorizati on Request 11/18 completed Not Available Not Available Not Available cyclobenzap rine 10 mg tablet Take 1 tablet 3 times a day by oral route as needed for 10 days. 03/28 completed Not Available Not Available Not Available terazosin 5 mg capsule TAKE 1 CAPSULE BY MOUTH AT BEDTIME active Not Available Not Available No t Available metformin 500 mg tablet TAKE 1 TABLET BY MOUTH TWICE DAILY active Not Available Not Available No t Available fentanyl 50 mcg/hr transdermal patch APPLY 1 PATCH TOPICALLY TO THE SKIN EVERY 72 HOURS active Not Available Not Available No t Available atorvastati n 80 mg tablet Take 1 [...] THEN 1 TABLET EVERY DAY UNTIL FINISHED 12/15 completed Not Available Not Available Not Available levetiracet am 500 mg tablet TAKE 1 TABLET BY MOUTH EVERY DAY DIRECTED active Not Available Not Available No t Available ondansetron HCl 8 mg tablet TAKE 1 TABLET BY MOUTH TWICE DAILY FOR 14 DAYS 11/18 completed Not Available Not Available Not Available glipizide 10 mg tablet TAKE 1 TABLET BY MOUTH EVERY DAY 11/18 completed Not Available Not Available Not Available Milk of Magnesia 400 mg/5 mL oral suspension SHAKE LIQUID WELL AND TAKE 30 ML BY MOUTH EVERY DAY NEEDED FOR CONSTIPAT ION active Not Available Not Available No t Available amlodipine 5 mg tablet TAKE 1 [...] TOPICALLY TO THE SKIN EVERY 72 HOURS active Not Available Not Available No t Available tamsulosin 0.4 mg capsule TAKE 1 CAPSULE BY MOUTH AT BEDTIME active Not Available Not Available No t Available amlodipine 10 mg tablet TAKE 1 TABLET BY MOUTH EVERY DAY active Not Available Not Available No t Available lisinopril 10 mg tablet TAKE 1 TABLET BY MOUTH EVERY DAY active Not Available Not Available No t Available docusate sodium 100 mg capsule TAKE 1 CAPSULE BY MOUTH TWICE DAILY active Not Available Not Available No t Available omeprazole 20 mg capsule,del ayed release TAKE 1 CAPSULE BY MOUTH TWICE DAILY active Not Available Not Available No t Available diclofenac sodium 75 mg tablet,cheri yed release [...] completed Not Available Not Available Not Available levofloxaci n 500 mg tablet TAKE 1 TABLET BY MOUTH DAILY FOR 5 DAYS 04/21 completed Not Available Not Available Not Available fentanyl 75 mcg/hr transdermal patch Apply 2 patches every 72 hours by transderm al route for 30 days. 07/19 completed Not Available Not Available Not Available topiramate 100 mg tablet TAKE 1 TABLET BY MOUTH TWICE DAILY 11/18 completed Not Available Not Available Not Available finasteride 5 mg tablet TAKE 1 TABLET BY MOUTH DAILY active Not Available Not Available No t Available naproxen 500 mg tablet TAKE 1 [...] completed Not Available Not Available Not Available Javier BustillosikPen U-100 Insulin 100 unit/mL (3 mL) subcutaneou s INJECT 30 UNITS UNDER THE SKIN ONCE DAILY active Not Available Not Available No t Available Fluzone High-Dose Quad 2020- (PF) 240 mcg/0.7 mL IM syringe PHARMACY ADMINISTE RED 06/14 completed Not Available Not Available Not Available Vitals Date Recorded Body height Heart rate Oxygen saturation Body mass index (BMI) Body weight Systolic And Diastolic Provider Name and Address Organization Details Last Updated DateTime 160.02 cm 108 /min 97 % 25.7 kg/m2 48964.8 9 g 150/82 mm[Hg] Noé Geigerin [facility] 4 13:28:57 Date Recorded Body height Heart rate Oxygen saturation Systolic And Diastolic Provider Name and Address Organization Details Last Updated DateTime 12/15/2024 160.02 cm 74 /min 97 % 124/78 mm[Hg] Lacy Mckeon [facility] 12/15/2024 15:09:24 Date Recorded Oxygen saturation Provider Name and Address Organization Details Last Updated DateTime 04/21/2025 90 % Martine Styles [address] [place] [address], [address], [facility] 04/21/2025 15:29:13 Date Recorded Body height Body mass index (BMI) Body weight Heart rate Systolic And Diastolic Provider Name and Address Organization Details Last Updated DateTime 04/21/2025 160.02 cm 21.4 kg/m2 30939.68 g 98 /min 126/64 mm[Hg] NAHEED BARR [facility] 04/21/2025 15:11:00 Social History Question Answer Notes LastModified by Organizat ion Details LastModified Time Tobacco Smoking Status Former Smoker Not Available [facility] 03/16/2020 03:36:24 What Was The Date Of Your Most Recent Tobacco Screening? 04/21/2025 [email or web address] Information not available 04/21/2025 Sex: Unknown Functional Status None recorded. Mental Status None recorded. Family History Nothing Reported. Medical History No medical history recorded. Immunizations Vaccine Type Date Status Note Provider Nam e and Address Organization Details Recorded Time Influenza, split virus, quadrivalent, preservative 9 completed Not Available [facility] 05/31/2019 02:46:30 COVID-19, mRNA, LNP-S, PF, 100 mcg/0.5mL dose or 50 mcg/0.25mL dose 1 completed Oma thomas [facility] 04/25/2022 11:16:53 COVID-19, mRNA, LNP-S, PF, 30 mcg/0.3 mL dose, timothy-sucrose 2 completed Oma thomas [facility] 04/25/2022 11:17:27 influenza, unspecified formulation 2 completed Oma thomas [facility] 04/25/2022 11:17:46 Influenza, split virus, quadrivalent, preservative 0 completed Jennieamandeep Fosterbharathi thomas [facility] 04/12/2020 08:10:10 COVID-19, mRNA, LNP-S, PF, 100 mcg/0.5mL dose or 50 mcg/0.25mL dose 1 completed Leigh thomas [facility] 07/23/2020 14:52:18 COVID-19, mRNA, LNP-S, PF, 100 mcg/0.5mL dose or 50 mcg/0.25mL dose 1 [facility] 14:52:26 Past Encounters Encounter ID Performer Location Encounter Start Date Encounter Closed Date Diagnosis/Indication Diagnosis SNOMED-CT Code Diagnosis ICD10 Code Diagnosis IMO Codes Diagnosis Note [id number] Erik Shaw [facility] [address] [place] [address], [place] [address] 11/26/2017 12:11:50 11/26/2017 14:53:25 Degeneration of lumbar intervertebral disc 84124871 M51.36 baseline no change this is the one major problem in his life fentanyl not as effective as in past Type 2 be betes mellitus 25565531 E11.9 here for recheck jayjay teri will need to cut back by 5 units to 25 u qhs will follow and cont to decrease insulin as noted Essential hypertension 38054650 I10 overall [place] bp [id number] Erik Shaw [facility] [address] [facility],[place] [address] 04/15/2018 13:28:48 04/15/2018 15:01:45 Type 2 diabetes mellitus 44291054 E11.9 a1c is 5.4 again and he is still doing great after cutting down dose last visit Essential hypertension 60854611 I10 overall stable saloni w bp Cervico-oc cipital neuralgia 34451978 M54.81 will arrange to get a cortisone inject trigger [id number] Erik Shaw [facility] [address] [facility] [address] [address] 04/19/2018 11:19:59 04/22/2018 11:19:25 Cervico-occipital neuralgia 25645796 M54.81 cortisone inject trigger point Degenerati on of lumbar intervertebral disc 99587423 M51.36 baseline no change this is the one major problem in his life fentanyl not as effective as in past [id number] Erik Shaw DO [facility] [address] [facility] [address] [address] 07/24/2018 14:07:08 07/24/2018 14:38:11 Essential hypertension 88647361 I10 overall stable saloni w bp and will cont current med Type 2 be betes mellitus 09313067 E11.9 a1c is 6.1 again and he is still doing great after cutting down dose last visit was 5.4 [id number] Erik Shaw DO [facility] [address] [facility] [address] [address] 12/11/2018 15:47:06 12/11/2018 16:44:55 Type 2 diabetes mellitus 37684232 E11.9 a1c is 6.3 which is amazing given the length of time he is not taking care of himself relates not following diet will have him cont to follow as needed and rechk 3 mo Essential hypertension 50327351 I10 overall stable saloni w bp and will cont current med Degenerati on of lumbar intervertebral disc 92947708 M51.36 baseline no change this is the one major problem in his life fentanyl not as effective as in past Hypercholesterolemia 136 98368 E78.00 will need rechk [id number] Erik Shaw [facility] [address] [facility] [address] [address] 03/05/2019 14:22:42 03/05/2019 15:13:47 Essential hypertension 67580044 I10 overall stable saloni w bp and will cont current med Type 2 be betes mellitus 15363687 E11.9 a1c is 6.9 was 6.3 and he admits to not taking care feels he is lonesome relates not following diet will have him cont to follow as needed and rechk 3 mo Depressive disorder 2240 9007 F32.9 Administra tion of influenza vaccine 69522330 Z23 [id number] Erik Shaw [facility] [address] [facility],[place] [address] 07/21/2019 14:06:12 07/21/2019 14:31:50 Type 2 diabetes mellitus 32550076 E11.9 a1c is 6.9 was 6.9 was 6.3 and he admits to not taking care he still feels he is lonesome relates not following diet will have him cont to follow as needed and rechk 3 mo he did overtake his cannabis the other month and he needed to be eval in the ER was released without incident Essential hypertension 01212461 I10 overall stable saloni w bp and will cont current med Active or passive immunization 408640149 Z23 Chronic at rial fibrillation 739095080 I48.20 seems controlled with addition of xarelto Therapeuti c opioid induced constipation 7751131092 87332 T40.2X5A [id number] Erik Shaw [facility] [address] [facility] [place] [address] 11/18/2019 15:38:10 11/18/2019 16:14:38 Essential hypertension 85464395 I10 overall stable saloni w bp and will cont current med Type 2 be betes mellitus 74368122 E11.9 a1c is 6.6 and was 6.9 [...] incident Degenerati on of lumbar intervertebral disc 79867216 M51.36 baseline no change this is the one major problem in his life but feels he may be even worse fentanyl not as effective as in past Chronic at rial fibrillation 747618380 I48.20 seems controlled with addition of xarelto Tendinitis of left hand [id number] 7580112 M67.844 fairly prominent swelling and is quite painful [id number] Erik Shaw [facility] [address] [facility],[email or web address] [address] 03/17/2020 15:44:31 03/17/2020 16:15:14 Type 2 diabetes mellitus 58742561 E11.9 a1c is6.6.6 and previous was 6.6 [...] ER was released without incident Essential hypertension 82738098 I10 overall stable saloni w bp and will cont current med Chronic at rial fibrillation 284986845 I48.20 seems controlled with addition of xarelto Infection of tooth 57503 8007 K04.7 will tx and see if we can calm it down [id number] Erik Shaw [facility] [address] [facility],[place] [facility] [address] 07/23/2020 14:41:09 07/23/2020 15:13:41 Chronic atrial fibrillation 763133881 I48.20 seems controlled with addition of xarelto Essential hypertension 08195365 I10 overall stable saloni w bp and will cont current med Type 2 be betes mellitus 65879036 E11.9 a1c is 6.9 and was 6.6 [...] this Trigger fi nger of left hand [id number] 1524636 M65.30 4th finger and others very painful and he will fet back to me when ready to see dr saldaña [id number] Erik Shaw [facility] [address] [facility],[place] [facility] [address] 12/07/2020 13:33:14 12/07/2020 14:01:26 Type 2 diabetes mellitus 74338456 E11.9 a1c is 6.8 and before was 6.9 and was 6.6 and previous was 6.6 and was 6.9 was 6.9 was 6.3 and he admits to not taking care he still feels he is lonesome relates not always following diet will have him cont to follow as needed and rechk 3 mo he cont to take his cannabis without incident sometimes njoquzsh3y is stable Essential hypertension 09948914 I10 overall stable saloni w bp and will cont current med Chronic at rial fibrillation 898738025 I48.20 seems controlled with addition of xarelto Atypical chest pain 1025 37205 R07.89 im not sure what this is there is no pattern it is not reproducib le, lasts less than a second and had stopped since that one day . [id number] Erik Shaw [facility] [address] [facility] [address] 01/21/2021 14:10:36 01/21/2021 15:05:16 Chronic atrial fibrillation 365601578 I48.20 seems controlled with addition of xarelto Essential hypertension 19131042 I10 overall stable saloni w bp and will cont current med [id number] Erik Shaw, [facility] Internal [facility] [address] [facility],[place] [address] 04/29/2021 08:37:32 04/29/2021 15:34:00 Chronic atrial fibrillation 077089646 I48.20 seems controlled with addition of xarelto no prob with med Degenerati on of lumbar intervertebral disc 14943160 M51.36 baseline no change this is the one major problem in his life but feels he may be even worse fentanyl not as effective as in past back is slowly progressin g making him less mobile Essential hypertension 26868188 I10 overall stable saloni w bp and will cont current med Type 2 be betes mellitus 82778769 E11.9 a1c is now 7.1 was 6.8 [...] to take his cannabis without incident sometimes aeyptors6s is stable at 7.1 [id number] Erik Shaw [facility] [address] [facility],[place] [address] 08/03/2021 13:48:55 08/05/2021 10:43:56 Hypercholesterolemia 63618837 E78.00 will need rechk Type 2 be betes mellitus 54783954 E11.9 a1c is now 6.8 he was [...] to take his cannabis without incident sometimes bodlvhua6v is stable at 7.1 Essential hypertension 64881938 I10 overall stable saloni w bp and will cont current med Chronic at rial fibrillation 469419447 I48.20 seems controlled with addition of xarelto no prob with med [id number] Erik Shaw [facility] [address] [facility],[place] [address] 12/14/2021 16:24:00 12/14/2021 16:50:44 Hypercholesterolemia 65275899 E78.00 will need rechk Type 2 be betes mellitus 77642227 E11.9 a1c is now 6.7 and prior [...] to take his cannabis without incident sometimes irrvustk1m is stable at 7.1 Essential hypertension 11207197 I10 overall stable saloni w bp and will cont current med Chronic at rial fibrillation 907653494 I48.20 seems controlled with addition of xarelto no prob with med Atrial fibrillation 4943 6004 I48.91 stable no issues Active or passive immunization 609501000 Z23 Acquired r ight hallux valgus 5076009264 83947 M20.11 [id number] [facility] [address] [facility],[place] [address] 04/26/2022 14:36:22 04/26/2022 15:37:00 Chronic atrial fibrillation 453512966 I48.20 seems controlled with addition of xarelto no prob with med Hypercholesterolemia 136 73070 E78.00 will need rechk Type 2 be betes mellitus 58709516 E11.9 a1c is now at 6.3 6.7 and prior was 6.8 he was 7.1 relates not always following diet will have him cont to follow as needed and rechk 3 mo he cont to take his cannabis without incident sometimes lafbmrfg9x is stable at 7.1 Essential hypertension 66343113 I10 overall stable saloni w bp and will cont current med Diabetic foot ulcer 3710 52850 E13.621 we will use xerform dressing on woummd for now and have ordered a collagen silver dressing for him [id number] Erik [facility] [address] [facility],[place] [address] 07/26/2022 14:27:33 07/26/2022 17:06:24 Chronic atrial fibrillation 458837792 I48.20 seems controlled with addition of xarelto no prob with med Type 2 eb betes mellitus 13345760 E11.9 a1c is now at 6.3 again was 6.3 and prior was 6.7 and prior was 6.8 he was 7.1 relates not always following diet will have him cont to follow as needed and rechk 3 mo he cont to take his cannabis without incident sometimes konkouwu0v is stable at 7.1 Essential hypertension 53332669 I10 overall stable saloni w bp and will cont current med Obstructiv e sleep apnea syndrome 57468734 G47.33 stable sleeps well Diabetic foot ulcer 3710 28661 E13.621 L97.409 getting better every weekwe will use xerform dressing on wound for now and have ordered a collagen silver dressing for him Advance care planning 71 8827082 Z71.89 utd Degenerati on of lumbar intervertebral disc 43624399 M51.36 baseline no change this is the one major problem in his life but feels he may be even worse fentanyl not as effective as in past back is slowly progressin g making him less mobile [id number] Erik Shaw [facility] [address] [facility],[place] [address] 11/29/2022 15:48:05 12/01/2022 13:55:15 Chronic atrial fibrillation 813647962 I48.20 seems controlled with addition of xarelto no prob with med Degenerati on of lumbar intervertebral disc 90999007 M51.36 baseline no change this is the one major problem in his life but feels he may be even worse fentanyl not as effective as in past back is slowly progressin g making him less mobile Essential hypertension 58702825 I10 overall stable saloni w bp and will cont current med Type 2 be betes mellitus 41912965 E11.9 a1c is now at 6.1 he was 6.3 again was 6.3 and prior was 6.7 and prior was 6.8 he was 7.1 relates not always following diet will have him cont to follow as needed and rechk 3 mo he cont to take his cannabis without incident sometimes imthwhrp7y is stable at 7.1 [id number] Erik Shaw [facility] [address] [facility],[place] [address] 12/26/2022 11:08:34 12/26/2022 11:59:40 Atrial fibrillation 56477592 I48.0 stable Essential hypertension 28908788 I10 BP is okay Type 2 be betes mellitus 47791968 E11.9 stable Actinic keratosis L57.0 send out referral Squamous c ell carcinoma of skin 513739800 C44.329 will set up with derm [id number] Erik Shaw [facility] [address] [facility],[place] [facility] [address] 05/11/2023 08:25:32 05/11/2023 15:47:22 Essential hypertension 33535244 I10 overall stable saloni w bp and will cont current med Type 2 be betes mellitus 08254798 E11.9 a1c is now at 6.1 he was 6.3 again was 6.3 and prior was 6.7 and prior was 6.8 he was 7.1 relates not always following diet will have him cont to follow as needed and rechk 3 mo he cont to take his cannabis without incident sometimes yjppsasr5j is stable at 7.1 Intractabl e nausea and vomiting 892369849 R11.2 [id number] Erik Shaw [facility] [address] [facility], [place] [address] 06/05/2023 12:23:31 06/05/2023 14:06:18 Type 2 diabetes mellitus 46745166 E11.9 a1c is now at 6.1 he was 6.3 again was 6.3 and prior was 6.7 and prior was 6.8 he was 7.1 relates not always following diet will have him cont to follow as needed and rechk 3 mo he cont to take his cannabis without incident sometimes ujobmvxe0p is stable at 7.1 Essential hypertension 74133606 I10 overall stable saloni w bp and will cont current med Diffuse sp asm of esophagus 38779890 K22.4 will need GI consult if amodipine not helping Headache 29753552 R51.9 pt has been having daily headaches [id number] [facility] [address] [facility], [place] [address] 08/21/2023 11:00:02 08/21/2023 11:28:02 Impacted cerumen of bilateral ears 5824570863 510705 H61.23 resolved [id number] Erik Shaw [facility] [address] [facility], [place] [address] 11/19/2023 13:20:45 11/19/2023 14:01:23 Depression screening 874224073 Z13.31 negative Cerebrovas cular accident 037481779 I63.49 currently now on eliquisref ills all set, no xarelto Atrial fibrillation 4943 6004 I48.0 stable Essential hypertension 53384714 I10 BP is okay Type 2 be betes mellitus 02238495 E11.9 stable Squamous c ell carcinoma of skin 938477927 C44.329 will set up with derm Cholecystitis 20066463 K 80.00 has to still f/u with gen surg Benign pro static hyperplasia with outflow obstruction 716859932 N40.1 start per hospital Depressive disorder 3548 9007 F32.0 cont Diffuse sp asm of esophagus 89729245 K22.4 cont Seizure disorder 2451486 02 G40.309 cont 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 will set up with recheck [id number] Erik Shaw [facility] [address] [facility],[place] [address] 08/11/2024 08:31:52 08/11/2024 12:07:55 Atrial fibrillation 83110246 I48.0 stable no issues Degenerati on of lumbar intervertebral disc 84949344 M51.369 Depression screening 171 990975 Z13.31 neg Essential hypertension 84697644 I10 overall stable saloni w bp and will cont current med Hypercholesterolemia 136 48131 E78.00 not having drawn anymore at 84 yrs Type 2 be betes mellitus 82852880 E11.9 a1c is now at 6.1 he was 6.3 again was 6.3 and prior was 6.7 and prior was 6.8 he was 7.1 relates not always following diet will have him cont to follow as needed and rechk 3 mo he cont to take his cannabis without incident sometimes mrpfukma9u is stable at 7.1 [id number] Erik Shaw [facility] [address] [facility],[place] [address] 12/15/2024 14:51:36 12/15/2024 16:06:08 Chronic constipation 781287144 K59.09 367082 continue Biliary sludge 73331440 K83.8 53827561 will set up with gastro for re eval Common cuauhtemoc e duct calculus 371058168 K80.50 9502 fu with GI Nodule of lung 744370879 R91.1 080337 will fu with repeat CT to monitor nodule Retention of urine 51284 4002 R33.9 73586 has urology f/u [id number] Erik Shaw [facility] [address] [facility],[place] [address] 03/03/2025 14:51:03 03/03/2025 15:02:36 Depression screening 453424082 Z13.31 negative [id number] DO Valeria Styles Internal Medicine [address] [facility],[place] [address] 04/21/2025 14:55:37 04/21/2025 15:47:41 Depression screening 363946572 Z13.31 neg Essential hypertension 59855862 I10 overall stable saloni w bp and will cont current med Atrial fibrillation 4943 6004 I48.0 stable no issues Type 2 be betes mellitus 06976021 E11.9 a1c is pending no rece nt lab now at 6.1 he was 6.3 again was 6.3 and prior was 6.7 and prior was 6.8 he was 7.1 relates not always following diet will have him cont to follow as needed and rechk 3 mo he cont to take his cannabis without incident sometimes sqgwcphx8t is stable at 7.1 Health Concerns Section Related Observation LastModified by Organization Detai ls LastModified Time None Recorded Concern Status LastModified by Organization Details LastModified Time None Recorded Advance Directives Directive None Recorded Payers Insurance Date Sequence Insurance Name Policy Number Policy Daly Covered Member ID Daly Member ID Guarantor Name 04/18/2025 1 [place] [employer] Ferny Mckeon [id number] Ferny Mckeon 04/18/2025 2 [place] [id number] Ferny Mckeon [id number] Ferny Mckeon Notes Date Note Type Note Provider Name and Address Organization Details Recorded Time 024 text/ht ml [facility] the patient was d/c the [...] using the fentanyl patches JANY LONG [address] [place], [address], [place] [facility]NA[facility] Shaw [facility] 11/19/2023 13:53:28 [...] to be on his usual medications Erik Shaw DO [address] [place], [address], [facility], [place] 08/11/2024 12:01:17 025 text/ht ml ROS as noted [facility] the [facility], TCM 14 patient presented to the ER for acute onset LLQ pain resulting in patient calling 911, presented to hospital via ambulanceCT showed possible CBD dilation with impacted stone as well as large volume fecal burden throughout the colon, per pt last bowel movement was 2 prior with some water loose stool day of admissionnoted urinary retention, patient had cath placedpatient consulted with gen surg for possible gallbladder removal due to sludge and stone, though it was decided to forgo surgery as patient's symptoms resolved with bowel movementdoes see GI through Dr. Lundberg's office, recommended outpatient f/u for further evaluation and treatment of chronic constipation did have an incidental finding of a 7 mm pulmonary nodule with recommendation of f/u outpatient patient started on milk of mag and polyethylene for constipation and tamsulosin for BPH with obstructive symptoms no other changes to medication list TODAY:the patient is here today with is daughter and granddaughter the patient has an indwelling catheterthe patient has a urology appt this week coming up the patient denies any urinary symptoms or UTI symptoms the patient is still not having regular bowel movement JANY LONG [address] [facility], [place], [address], [facility], [place] 12/15/2024 15:43:36
--- OUTSIDE RECORDS SUMMARY | 2025-04-21 22:18 | XMS_ITS | Continuity of Care Document ---
Author Organization [place] - [facility], [facility] Address [address] [place] [address] Assessment No assessment recorded. Plan of Treatment Reminders Order Date Submit Date Provider Last Modified By Organization Details Last Modified Time Details Appointments FOLLOW UP 15 2024 03:00P M DR SHAW Not available Not available Not available Lab None recorded . Referral None recorded . Procedures None recorded . Surgeries None recorded . Imaging None recorded . Medication Orders None recorded . Patient TargetsNo targets recorded. Patient InstructionsNo instructions recorded. Reason for Referral None Reported. Problems Name Problem SNOMED Code Status Onset Date Resolution Date Notes Provider Name and Address Organization Details Recorded Time Type 2 diabetes mellitus 62475589 Active 2017 Not Available [facility] 3 11:56:21 Diverticu lar disease 531722161 Active 2017 Not Available [facility] 3 11:56:21 Migraine without aura 09072706 Active 2017 Not Available [facility] 3 11:56:21 Essential hypertens ion 82799273 Active 2017 Not Available [facility] 3 11:56:21 Squamous cell carcinoma of skin 858761135 Active 2017 face Not Available [facility] 3 11:56:21 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 70261862 Active 2017 Not Available [facility] 3 11:56:21 Post-lami nectomy syndrome 30184135 Active 2017 Not Available [facility] 3 11:56:21 Myofascia l pain syndrome 120694329 Active 2017 Not Available [facility] 3 11:56:21 Radicular pain 91918481 Active 2017 lumbar Not Available [facility] 3 11:56:21 Obstructi ve sleep apnea syndrome 67812736 Active 2017 on CPAP Not Available [facility] 3 11:56:22 Hyperchol esterolem ia 28454370 Active 2017 Not Available [facility] 3 11:56:21 Cervico-o ccipital neuralgia 30228476 Active 2017 Not Available [facility] 3 11:56:21 Chronic atrial fibrillat ion 395501979 Active 2019 Not Available [facility] 3 11:56:21 Therapeut ic opioid induced constipat ion 57648034577 9102 Active 2019 Not Available [facility] 3 11:56:21 Atrial fibrillat ion 73382057 Active 2021 Not Available [facility] 3 11:56:21 Acquired right hallux valgus 89206649437 4106 Active 2021 Not Available [facility] 3 11:56:21 Chronic pain 49574422 Active 2021 Not Available [facility] 3 11:56:22 Diabetic foot ulcer 393751143 Active 2021 Not Available [facility] 3 11:56:21 Actinic keratosis 231094622 Active 2022 Not Available [facility] 3 11:56:21 Intractab le nausea and vomiting 123626784 Active 2022 Erik Shaw DO [address] [place] [address], [address], [facility] 3 14:26:39 Diffuse spasm of esophagus 23385237 Active 2023 Erik Shaw DO [address] [place] [address], [address], [facility] 4 13:57:14 Headache 44859867 Active 2023 Erik Shaw DO [address] [place] [address], [address], [facility] 4 14:01:14 Impacted cerumen of bilateral ears 37351785005 90100 Active 2023 JANY LONG [address] [place], [address], [facility] 4 15:18:08 Cerebrova scular accident 427339493 Active 2023 JANY LONG [address] [place] [address], [address], [facility] 4 13:37:07 Cholecyst itis 30778988 Active 2023 JANY LONG [address] [place] [address], [address], [facility] 4 13:39:08 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 080297422 Active 2023 JANY LONG [address] [place] [address], [address], [facility] 4 13:40:30 Depressiv e disorder 94947309 Active 2023 JANY LONG [address] [place] [address], [address], [facility] 4 13:41:00 Seizure disorder 231835362 Active 2023 JANY LONG [address] [place] [address], [address], [facility] 4 13:42:42 Subclinic al hyperthyr oidism 324368239 Active 2023 JANY LONG [address] [place] [address], [address], [facility] 4 13:50:37 Chronic constipat ion 851216608 Active 2024 JANY LONG [address] [place] [address], [address], [facility] 5 13:11:49 Biliary sludge 54590531 Active 2024 JANY LONG [address] [place] [address], [address], [facility] 5 13:12:05 Common bile duct calculus 159149260 Active 2024 JANY LONG [address] [place] [address], [address], [facility] 5 13:12:19 Nodule of lung 211833106 Active 2024 JANY LONG [address] [place] [address], [address], [facility] 5 13:12:59 Retention of urine 291170563 Active 2024 JANY LONG [address] [place] [address], [address], [facility] 5 15:42:01 Recurrent urinary tract infection 651595976 Active 2024 JANY LONG [address] [place] [address], [address], [facility] 5 09:02:20 Complicat ion of urinary catheter 173259083 Active 2024 JANY LONG [address] [place] [address], [address], [facility] 09:02:41 Recurrent falls 999935871 Active 2024 JANY LONG [address] [place] [address], [address], [facility] 09:02:57 Spasm 86928549 Active 2024 Erik Shaw DO [address] [place] [address], [address], [facility] 13:48:01 Problem Notes None recorded. Procedures Surgical History Date Name Laterality Status Provider Name and Address Organization Details Recorded Time 08/21/19 24 Cerumen Removal completed JANY LONG [address] [place] [address], [address], [facility] 08/21/2023 15:18:01 04/19/20 18 Family Practice Trigger Point Injection completed Erik Shaw, DO [address] [facility], [place], [address], [facility] 04/19/2018 11:50:49 Imaging Results None recorded. Procedure Notes None recorded. Medical Equipment None Reported. Allergies Allergen ID Allergen Name Allergen Category Reaction Reaction Severity Criticality Documentation Date Start Date Code Code System Note Provider Name and Address Organization Details Recorded Time 91716 Product containin g penicilli n (product) medicatio n Not available Not available Not available 04/11/20252018 29042 8001 SNOMED Not Available elian - External Data Service - prod 16:13:48 728 penicilli n V Not available hives Not available Not available 08/08/2017 7984 RxNorm Leigh Ruvalcaba [facility] 8 11:55:06 Medications Name Sig Start Date [...] by transderm al route for 30 days. 07/194 completed Not Available Not Available Not Available [...] completed Not Available Not Available Not Available [employer] U-300 Insulin 300 unit/mL (1.5 mL) [...] Not Available Not Available Not Available Vitals None Recorded Social History Question Answer Notes LastModified by Organizat ion Details LastModified Time Tobacco Smoking Status Former Smoker Not Available [facility] 03/16/2020 03:36:24 What Was The Date Of Your Most Recent Tobacco Screening? 04/21/2025 [email or web address] Information not available 04/21/2025 Sex: Unknown Functional Status None recorded. Mental Status None recorded. Family History Nothing Reported. Medical History No medical history recorded. Immunizations Vaccine Type Date Status Note Provider Nam e and Address Organization Details Recorded Time Influenza, split virus, quadrivalent, preservative 9 completed Not Available [facility] 05/31/2019 02:46:30 COVID-19, mRNA, LNP-S, PF, 100 mcg/0.5mL dose or 50 mcg/0.25mL dose 1 completed [facility] 04/25/2022 11:16:53 COVID-19, mRNA, LNP-S, PF, 30 mcg/0.3 mL dose, timothy-sucrose 2 completed [facility] 04/25/2022 11:17:27 influenza, unspecified formulation 2 completed [facility] 04/25/2022 11:17:46 Influenza, split virus, quadrivalent, preservative 0 completed [facility] 04/12/2020 08:10:10 COVID-19, mRNA, LNP-S, PF, 100 mcg/0.5mL dose or 50 mcg/0.25mL dose 1 [facility] 07/23/2020 14:52:18 COVID-19, mRNA, LNP-S, PF, 100 mcg/0.5mL dose or 50 mcg/0.25mL dose 1 completed Leigh Ruvalcaba [facility] 07/23/2020 14:52:26 Past Encounters Encounter ID Performer Location Encounter Start Date Encounter Closed Date Diagnosis/Indication Diagnosis SNOMED-CT Code Diagnosis ICD10 Code Diagnosis IMO Codes Diagnosis Note [id number] Erik Shaw [facility] [address] [facility] [address] [facility] [place] [address] 03/03/2025 14:51:03 03/03/2025 15:02:36 Depression screening 421171125 Z13.31 negative Health Concerns Section Related Observation LastModified by Organization Detai ls LastModified Time None Recorded Concern Status LastModified by Organization Details LastModified Time None Recorded Payers Encounter Date Sequence Insurance Name Policy Number Policy Daly Covered Member ID Daly Member ID Guarantor Name 03/03/2025 1 [place]ICARE [place] [facility] Ferny Mckeon [id number] Ferny Mckeon 03/03/2025 2 [place] [id number] Ferny Mckeon [id number] Ferny Mckeon
--- OUTSIDE RECORDS SUMMARY | 2025-04-21 22:18 | XMS_ITS | Encounter Summary ---
Author Organization [facility] Address [address] [place] [address] Phone Care Team Providers Care Project Management Director Name Role Phone Erik Perkins DO Primary Care Provider [phone] Erik Perkins DO Unavailable Kathleen Figueroa MD Unavailable [phone] Jeffry Bowman MD Unavailable [phone] Ander Cruz MD Unavailable [phone] Reason for Referral * Outpatient Procedure - Closed Specialty Diagnoses / Procedures Referred By Contmari t Referred To Contact Diagnoses Atypical chest pain Procedures Adult Echo TTE Erik Perkins DO Phone: tel: fax: [email or web address] Referral ID Status Reason Start Date Expiration Date Visits Re quested Visits Authorized [id number] Closed 12/08/2020 12/08/2021 1 1 Encounter Details Date Type Department Care Team (Late st Contact Info) Description 12/08/2020 Transcribe Orders Virtual Department [address] [place] [address] Erik Perkins DO [address] [facility] [place] [address] [place] [address] [email or web address] Atypical chest pain (Primary Dx); Chest pain, [...] of the chestpain is seen. us Erik Salomon Perkins DO IMG XR CHEST Final Result documented in this encounter Visit Diagnoses Diagnosis Atypical chest pain- Primary Other chest pain Chest pain, unspecified type Chest pain, unspecified type Atypical chest pain Other chest pain documented in this encounter Care Teams Project Management Director Relationship Specialty Start Date End Date Erik Perkins DO PCP - General Internal Medicine 05/21/20 Erik Perkins DO Internal Medicine 05/21/20 Kathleen Figueroa MD [address] [place] [address] Orthopedics Sports [facility], [place], [place] [phone] Historical LMR Provider 02/26/17 Jeffry Bowman MD [address] [place] [address] [facility] [place], [place] [id number] Historical LMR Provider 02/26/17 2 Ander Cruz MD [address] [place] [id number] Hematology and Oncology 05/15/17 documented as of this encounter Additional Source Comments The information contained in this document represents components of the legal health record. It is not the complete legal health record.[facility]
--- OUTSIDE RECORDS SUMMARY | 2025-04-21 22:18 | XMS_ITS | Encounter Summary ---
Author Organization [facility] Address [address] [place] [address] Phone Care Team Providers Care Ceramic Restorer Name Role Phone Erik Perkins DO Primary Care Provider [phone] Erik Perkins DO Unavailable Kathleen Figueroa MD Unavailable [phone] Jeffry Bowman MD Unavailable [phone] Ander Cruz MD Unavailable [phone] Encounter Details Date Type Department Care Team (Late st Contact Info) Description 07/29/2020 Transcribe Orders Virtual Department [address] [place] [address] Erik Perkins DO [address] [facility] [address] [place] [address] [email or web address] Dyspnea on exertion (Primary Dx) Social History [...] Volumes, DLCO, Spirometry with bronchodilator; Performing Location: [facility] (09/14/2020 5:13 PM EDT) FEV1 FVC FEV1/FVC [...] abnormality documented in this encounter Care Teams Ceramic Restorer Relationship Specialty Start Date End Date Erik Perkins DO PCP - General Internal Medicine 05/21/20 Erik Perkins DO Internal Medicine 05/21/20 Kathleen Figueroa MD [address] [place] [address] Orthopedics & Sports [facility], [facility] [place] [address] Historical LMR Provider 02/26/17 Jeffry Bowman MD [address] [facility] Orthopedics Sports [facility], [place], [place] [id number] Historical LMR Provider 02/26/17 2 Ander Cruz MD [address] [place] [address] [email or web address] Hematology and Oncology 05/15/17 documented as of this encounter Additional Source Comments The information contained in this document represents components of the legal health record. It is not the complete legal health record.[facility]
--- OUTSIDE RECORDS SUMMARY | 2025-04-21 22:18 | XMS_ITS | Encounter Summary ---
Author Organization [facility] Address [address] [place] [address] Phone Care Team Providers Care Conveyor Belt Repairer Name Role Phone Erik Perkins DO Primary Care Provider [phone] Erik Perkins DO Unavailable Kathleen Figueroa MD Unavailable [phone] Jeffry Bowman MD Unavailable [phone] Ander Cruz MD Unavailable [phone] Encounter Details Date Type Department Care Team (Late st Contact Info) Description 08/17/2020 Transcribe Orders [facility] [address] [place] [address] Erik Perkins DO [address] [facility] [address] [place], [place] [phone] Social History Tobacco Use Types Packs/Day Years [...] on filedocumented in this encounter Care Teams Conveyor Belt Repairer Relationship Specialty Start Date End Date Erik Perkins DO PCP - General Internal Medicine 05/21/20 Erik Perkins DO Internal Medicine 05/21/20 Kathleen Figueroa MD [address] [place] [address] Orthopedics Sports [facility], [place], [place] [phone] Historical LMR Provider 02/26/17 Jeffry Bowman MD [address] [place] [address], [place], [place] [phone] Historical LMR Provider 02/26/17 2 Ander Cruz MD [address] [place] [address] Hematology and Oncology 05/15/17 documented as of this encounter Additional Source Comments The information contained in this document represents components of the legal health record. It is not the complete legal health record.[facility]
--- OUTSIDE RECORDS SUMMARY | 2025-04-21 22:19 | XMS_ITS | Continuity of Care Document ---
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) MDM MODERATE MUST MEET 2 OUT OF [...] Details Appointments FOLLOW UP 15 2024 03:00P Sang SHAW Not available Not available Not available Lab hemoglobi n A1c, QN, blood 2024 025 [facility], [address] [place] [address], [place], [address], 04/21/2025 15:30:33 CMP, serum or plasma 2024 025 [facility], [address] [place] [address], [place], [address], 04/21/2025 15:30:33 CBC w/ auto diff 2024 025 [facility], [address] [place] [address], [place], [address], 04/21/2025 15:30:33 Referral None recorded. Procedures None recorded. Surgeries None recorded. Imaging None recorded. Medication Orders None recorded. Patient TargetsNo targets recorded. Patient Instructions Encounter Date Encounter Id Patient Instructions Last Modified By Organization Details Last Modified Time 04/21/2025 [id number] pulse oximetry* ELIAN Not available 04/21/2025 15:36:02 Reason for Referral None Reported. Results Created Date Observation Date Name Description Value Unit Range Abnormal Flag Note LastModifiedBy Organization Detail LastModifiedTime Result Notes None recorded. Problems Name Problem SNOMED Code Status Onset Date Resolution Date Notes Provider Name and Address Organization Details Recorded Time Type 2 diabetes mellitus 04575993 Active 2017 Not Available [facility] 3 11:56:21 Diverticu lar disease 621055432 Active 2017 Not Available [facility] 3 11:56:21 Migraine without aura 33687000 Active 2017 Not Available [facility] 3 11:56:21 Essential hypertens ion 09070546 Active 2017 Not Available [facility] 3 11:56:21 Squamous cell carcinoma of skin 781942159 Active 2017 face Not Available [facility] 3 11:56:21 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 66287691 Active 2017 Not Available [facility] 3 11:56:21 Post-lami nectomy syndrome 25951084 Active 2017 Not Available [facility] 3 11:56:21 Myofascia l pain syndrome 605596575 Active 2017 Not Available [facility] 3 11:56:21 Radicular pain 39399642 Active 2017 lumbar Not Available [facility] 3 11:56:21 Obstructi ve sleep apnea syndrome 52503816 Active 2017 on CPAP Not Available [facility] 3 11:56:22 Hyperchol esterolem ia 91544012 Active 2017 [facility] Available [facility] 3 11:56:21 Cervico-o ccipital neuralgia 30581820 Active 2017 Not Available [facility] 3 11:56:21 Chronic atrial fibrillat ion 880904042 Active 2019 Not Available [facility] 3 11:56:21 Therapeut ic opioid induced constipat ion 13052050480 9102 Active 2019 Not Available [facility] 3 11:56:21 Atrial fibrillat ion 33157028 Active 2021 Not Available [facility] 3 11:56:21 Acquired right hallux valgus 21267511229 4106 Active 2021 Not Available [facility] 3 11:56:21 Chronic pain 91116790 Active 2021 Not Available [facility] 3 11:56:22 Diabetic foot ulcer 576135779 Active 2021 Not Available [facility] 3 11:56:21 Actinic keratosis 573846342 Active 2022 Not Available [facility] 3 11:56:21 Intractab le nausea and vomiting 275002191 Active 2022 Erik Shaw DO [address] [place] [address], [address], [facility] 3 14:26:39 Diffuse spasm of esophagus 41504638 Active 2023 Erik Shaw DO [address] [place] [address], [address], [facility] 4 13:57:14 Headache 54344686 Active 2023 Erik Shaw DO [address] [place] [address], [address], [facility] 4 14:01:14 Impacted cerumen of bilateral ears 52621830353 24603 Active 2023 JANY LONG [address] [place] [address], [address], [facility] 4 15:18:08 Cerebrova scular accident 002422213 Active 2023 JANY LONG [address] [place] [address], [address], [facility] 4 13:37:07 Cholecyst itis 90227157 Active 2023 JANY LONG [address] [place] [address], [address], [facility] 4 13:39:08 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 928290258 Active 2023 JANY LONG [address] [place] [address], [address], [facility] 4 13:40:30 Depressiv e disorder 52367288 Active 2023 JANY LONG [address] [place] [address], [address], [facility] 4 13:41:00 Seizure disorder 911618719 Active 2023 JANY LONG [address] [place] [address], [address], [facility] 4 13:42:42 Subclinic al hyperthyr oidism 747025461 Active 2023 JANY LONG [address] [place] [address], [address], [facility] 4 13:50:37 Chronic constipat ion 629605595 Active 2024 JANY LONG [address] [place] [address], [address], [facility] 5 13:11:49 Biliary sludge 74506100 Active 2024 JANY LONG [address] [place] [address], [address], [facility] 5 13:12:05 Common bile duct calculus 341160376 Active 2024 JANY LONG [address] [place] [address], [address], [facility] 13:12:19 Nodule of lung 710744773 Active 2024 JANY LONG [address] [place] [address], [address], [facility] 13:12:59 Retention of urine 255684875 Active 2024 JANY LONG [address] [place] [address], [address], [facility] 15:42:01 Recurrent urinary tract infection 955948707 Active 2024 JANY LONG [address] [place] [address], [address], [facility] 09:02:20 Complicat ion of urinary catheter 797223515 Active 2024 JANY LONG [address] [place] [address], [address], [facility] 09:02:41 Recurrent falls 428680238 Active 2024 JANY LONG [address] [place] [address], [address], [facility] 09:02:57 Spasm 56158855 Active 2024 Erik Shaw DO [address] [place] [address], [address], [facility] 13:48:01 Problem Notes None recorded. Procedures Surgical History Date Name Laterality Status Provider Name and Address Organization Details Recorded Time 08/21/19 24 Cerumen Removal completed JANY LONG [address] [place] [address], [address], [facility] 08/21/2023 15:18:01 04/19/20 18 Family Practice Trigger Point Injection completed Erik Shaw DO [address] [place] [address], [address], [facility] 04/19/2018 11:50:49 Imaging Results None recorded. Procedure Notes None recorded. Medical Equipment None Reported. Allergies Allergen ID Allergen Name Allergen Category Reaction Reaction Severity Criticality Documentation Date Start Date Code Code System Note Provider Name and Address Organization Details Recorded Time 15815 Product containin g penicilli n (product) medicatio n Not available Not available Not available 04/11/20252018 15655 8001 SNOMED Not Available elian - External Data Service - prod 5 16:13:48 728 penicilli n V Not available hives Not available Not available 08/08/2017 7984 [facility] 8 11:55:06 Medications Name Sig [...] completed Not Available Not Available Not Available T[employer]hun SoloStar U-300 Insulin 300 unit/mL (1.5 mL) [...] Not Available Not Available Vitals Date Recorded Oxygen saturation Provider Name and Address Organization Details Last Updated DateTime 04/21/2025 90 % Martine Styles [address], [place], [address], [facility] 04/21/2025 15:29:13 Date Recorded Body height Body mass index (BMI) Body weight Heart rate Systolic And Diastolic Provider Name and Address Organization Details Last Updated DateTime 04/21/2025 160.02 cm 21.4 kg/m2 19671.68 g 98 /min 126/64 mm[Hg] NAHEED BARR [facility] 04/21/2025 15:11:00 Social History Question Answer Notes [...] virus, quadrivalent, preservative 9 completed Not Available [facility] 05/31/2019 02:46:30 COVID-19, mRNA, LNP-S, PF, 100 mcg/0.5mL dose or 50 mcg/0.25mL dose 1 completed Oma thomas [facility] 04/25/2022 11:16:53 COVID-19, mRNA, LNP-S, PF, 30 mcg/0.3 mL dose, timothy-sucrose 2 completed Oma thomas [facility] 04/25/2022 11:17:27 influenza, unspecified formulation 2 completed Oma thomas [facility] 04/25/2022 11:17:46 Influenza, split virus, quadrivalent, preservative 0 completed Jennie thomas [facility] 04/12/2020 08:10:10 COVID-19, mRNA, LNP-S, PF, 100 mcg/0.5mL dose or 50 mcg/0.25mL dose 1 completed Leigh thomas [facility] 07/23/2020 14:52:18 COVID-19, mRNA, LNP-S, PF, 100 mcg/0.5mL dose or 50 mcg/0.25mL dose 1 ester thomas [facility] 07/23/2020 14:52:26 Past Encounters Encounter ID Performer Location Encounter Start Date Encounter Closed Date Diagnosis/Indication Diagnosis SNOMED-CT Code Diagnosis ICD10 Code Diagnosis IMO Codes Diagnosis Note [id number] Erik Shaw [facility] [address],[place] [address] 04/21/2025 14:55:37 04/21/2025 15:47:41 Depression screening 080620583 Z13.31 neg Essential hypertension 50791564 I10 overall stable saloni w bp and will cont current med Atrial fibrillation 4943 6004 I48.0 stable no issues Type 2 be betes mellitus 81893133 E11.9 a1c is pending no rece nt lab now at 6.1 he was 6.3 again was 6.3 and prior was 6.7 and prior was 6.8 he was 7.1 relates not always following diet will have him cont to follow as needed and rechk 3 mo he cont to take his cannabis without incident sometimes gldyprtc1r is stable at 7.1 Health Concerns Section Related Observation LastModified by Organization Detai ls LastModified Time None Recorded Concern Status LastModified by Organization Details LastModified Time None Recorded Payers Encounter Date Sequence Insurance Name Policy Number Policy Daly Covered Member ID Daly Member ID Guarantor Name 04/21/2025 1 [place] [employer] Ferny Mckeon [id number] Ferny Mckeon 04/21/2025 2 [place] [id number] Ferny Mckeon [id number] Ferny Mckeon
--- OUTSIDE RECORDS SUMMARY | 2025-04-21 22:19 | XMS_ITS | Encounter Summary ---
Author Organization [facility] Address [address] [place] [address] Phone Care Team Providers Care Key Account Representative Name Role Phone Erik Perkins DO Primary Care Provider [phone] SuzyErik mojica DO Unavailable Ander Cruz MD Unavailable [phone] Encounter Details Date Type Department Care Team (Late st Contact Info) Description 09/23/2023 Procedure [facility], Ct Scan - [facility] [address] [place] [address] Social History Tobacco Use Types Packs/Day Years [...] 2:57 PM EDT Soledad Quiñonez, DERICK * [place] Suicide Severity Rating Scale (Screener/Recent Self-Report) Question [...] on filedocumented in this encounter Care Teams Key Account Representative Relationship Specialty Start Date End Date Erik Perkins DO PCP - General Internal Medicine 05/21/20 Erik Perkins DO Internal Medicine 05/21/20 Ander Cruz MD [address] [place] [address] [id number] [email or web address] Hematology and Oncology 05/15/17 documented as of this encounter Additional Source Comments The information contained in this document represents components of the legal health record. It is not the complete legal health record.[facility]
--- OUTSIDE RECORDS SUMMARY | 2025-04-21 22:19 | XMS_ITS | Clinical Summary ---
Author Organization Located Within [facility] Address [address] [place] [address] Phone Care Team Providers Care Heavy Duty Diesel Mechanic Name Role Phone SuzyErik mojica Primary Care Provider [phone] Erik Perkins DO Unavailable Ander Cruz MD Unavailable [phone] Allergies Active Allergy Reactions Criticality Noted Date Comments Penicillins 07/30/2018 Medications glipiZIDE (GLUCOTROL) 10 MG tablet Take 1 tablet by mouth daily. Active lisinopril (PRINIVIL,ZESTR IL) 10 MG tablet Take 1 tablet by mouth daily. Active topiramate (TOPAMAX) 100 MG tablet Take 1 tablet by mouth 2 (two) times a day. 0 Active rivaroxaban (XARELTO) 10 mg tablet Take 10 mg by mouth daily. Active amLODIPine (NORVASC) 10 MG tablet Take 10 mg by mouth daily. Active mirtazapine (REMERON) 15 MG tablet Take 15 mg by mouth nightly at bedtime. Active naloxegoL (MOVANTIK) 25 mg tablet Take 25 mg by mouth daily. Active fentaNYL (DURAGESIC) 100 mcg/hr Place 1 patch onto the skin every third day. 5 Active cyclobenzaprine (FLEXERIL) 5 MG tablet Take 10 mg by mouth 3 (three) times a day as needed for muscle spasms. 5 03/24/20 25 Discontinu ed(Ineffec tive) Active Problems Problem Noted Date Diagnosed Date [...] Encounters Date Type Department Care Team Description 04/08/2025 2:00 PM EST Home Care Visit [facility] [address] [place] [address] Nicci Acevedo, PT PT OASIS DISCHARGE VISIT 04/01/2025 12:45 PM EST Home Care Visit [facility] [address] [place] [address] Nicci Acevedo, PT PT HOME VISIT 03/30/2025 12:45 PM EST Home Care Visit [facility] [address] [place] [address] Tootie Islas, OT OT DISCIPLINE DISCHARGE VISIT 03/26/2025 2:15 PM EST Home Care Visit [facility] [address] [place] [address] Nicci Acevedo, PT PT HOME VISIT 03/25/2025 2:00 PM EST Home Care Visit [facility] [address] [place] [address] Tootie Islas, OT OT HOME VISIT 03/24/2025 2:15 PM EST Home Care Visit [facility] [address] [place] [address] Nicci Acevedo, PT PT HOME VISIT 03/23/2025 3:00 PM EST Home Care Visit [facility] [address] [place] [address] Sylwia Quigley, RN SN DISCIPLINE DISCHARGE VISIT 03/23/2025 2:00 PM EST Home Care Visit [facility] [address] [place] [address] Tootie Islas, OT OT HOME VISIT 03/20/2025 12:45 PM EST Home Care Visit [facility] [address] [place] [address] Liana Fernandes LPN INDUSTRIAL ENGINEERING HOME VISIT 03/18/2025 1:15 PM EST Home Care Visit [facility] [address] [place] [address] Tootie Islas, OT OT HOME VISIT 03/18/2025 1:00 PM EST Home Care Visit [facility] [address] [place] [address] Nicci Acevedo, PT PT HOME VISIT 03/17/2025 12:30 PM EST Home Care Visit [facility] [address] [place] [address] Tootie Islas, OT OT HOME VISIT 03/16/2025 1:00 PM EST Home Care Visit [facility] [address] [place] [address] Nicci Acevedo, PT PT HOME VISIT 03/11/2025 2:15 PM EDT Home Care Visit [facility] [address] [place], [place] [phone] Tootie Islas, OT OT HOME VISIT 03/11/2025 12:00 PM EDT Home Care Visit [facility] [address] [place], [place] [phone] Liana Fernandes LPN [employer]INEER[employer] HOME VISIT 03/10/2025 1:00 PM EDT Home Care Visit [facility] [address] [place], [place] [phone] Nicci Acevedo, PT PT TFA VISIT 03/09/2025 12:00 PM EDT Home Care Visit [facility] [address] [place] [address] Tootie Islas, OT OT HOME VISIT 03/04/2025 1:00 PM EDT Home Care Visit [facility] [address] [place], [place] [phone] Sylwia Quigley RN SN HOME VISIT 03/04/2025 11:45 AM EDT Home Care Visit [facility] [address] [place] [address] Tootie Islas, OT OT TFA VISIT 03/03/2025 1:15 PM EDT Home Care Visit [facility] [address] [place], [place] [phone] Liana Fernandes LPN [employer]RIAL ENGINEERING HOME VISIT 03/03/2025 11:00 AM EDT Home Care Visit [facility] [address] [place], [place] [phone] Nicci Acevedo, PT PT HOME VISIT 02/27/2025 12:30 PM EDT Home Care Visit [facility] [address] [place], [place] [phone] Serena Castro, PT PT HOME VISIT 02/26/2025 1:00 PM EDT Home Care Visit [facility] [address] [place], [place] [phone] Tootie Islas, OT OT HOME VISIT 02/26/2025 10:00 AM EDT Home Care Visit [facility] [address] [place], [place] [phone] Sylwia Quigley, RN SN HOME VISIT 02/25/2025 1:15 PM EDT Home Care Visit [facility] [address] [place] [address] Tootie Islas, OT OT HOME VISIT 02/20/2025 1:30 PM EDT Home Care Visit [facility] [address] [place] [address] aNncy Abrams, PT PT HOME VISIT 02/19/2025 9:00 AM EDT Home Care Visit [facility] [address] [place] [address] Sylwia Quigley, DERICK SN HOME VISIT 02/18/2025 11:45 AM EDT Home Care Visit [facility] [address] [place], [place] [phone] Tootie Islas, OT OT HOME VISIT 2025 1:30 PM EDT Home Care Visit [facility] [address] [place], [place] [phone] Nancy Abrams, PT PT EVALUATION 02/16/2025 2:15 PM EDT Home Care Visit [facility] [address] [place], [place] [phone] Tootie Islas, OT OT EVALUATION 02/16/2025 1:00 PM EDT Home Care Visit [facility] [address] [place], [place] [phone] Sylwia Quigley, DERICK SN HOME VISIT 02/14/2025 Plan of Care Documentation [facility] [address] [place], [place] [phone] 02/13/2025 10:00 AM EDT Home Care Visit [facility] [address] [place], [place] [phone] Sylwia Quigley RN SN OASIS START OF CARE (SOC) 02/12/2025 Home Care Visit [facility] [address] [place] [address] Naomi Sierra RN TELEPHONE ENCOUNTER 02/09/2025 Orders Only [facility] [address] [place] [phone] Homehealth, Interface ProviderMD from Last 3 Months Social History Tobacco Use Types Packs/Day Years Used Date Smoking Tobacco: Never Smokeless Tobacco: Never Tobacco Cessation:Counseling Given: Not Answered Alcohol Use Standard Drinks/Week Comments Never 0 (1 standard drink = 0.6 oz pur e alcohol) Home Health Assessment: Transportation Answer Date Recorded Lack of Transportation (Medical) No 04/08/2025 Lack of Transportation (Non-Medical) No 04/08/2025 Patient Unable or Declines to Respond No 04/08/2025 Education Answer Date Recorded Are you interested [...] Sign Reading Time Taken Comments Blood Pressure 124/78 04/08/2025 2:08 PM EST Pulse 72 04/08/2025 2:08 PM EST Temperature 36.3 C (97.4 F) 04/08/2025 2:08 PM EST Respiratory Rate 14 04/08/2025 2:08 PM EST Oxygen Saturation 99% 04/08/2025 2:08 PM EST Inhaled Oxygen Concentration - - Weight 65.8 [...] EYE EXAM 09/25/2023 HEMOGLOBIN A1C 03/27/2024 09/25/2023 CREATININE LEVEL 10/11/2024 10/12/2023, , 09/25/2023, Additional history exists POTASSIUM LEVEL 10/11/2024 10/12/2023, 09/11, 09/25/2023, Additional history exists INFLUENZA VACCINE (#1) 2024 04/09/2020, 2018 COVID-19 VACCINE ( season) 2025 07/22/2020, 06/24/2020 BLOOD PRESSURE 10/06/2025 04/08/2025 HEPATITIS A VACCINES Aged Out No long [...] Date/Time Associated Diagnosis Comments BASIC METABOLIC PANEL (BMP) STAT 10/12/2023 11:59 AM EDT HEMOGLOBIN A1C Routine 09/25/2023 5:41 AM EDT OUTSIDE LDL Routine 09/23/2010 from Last 3 Months or Most Recently Relevant to Health Maintenance Results * (ABNORMAL) Basic metabolic panel (10/12/2023 11:59 AM EDT) SODIUM 137 133 - 146 mmol/L [facility] CHLORIDE 102 96 - 108 mmol/L [facility] POTASSIUM 5.1 3.3 - 5.1 mmol/L [facility] Comment:Specimen slightly he molyzed, result may be falsely elevated. CO2 22 21 - 35 mmol/L [facility] BUN 22(H) 6 - 19 mg/dL [facility] CREATININE 0.80 0.5 - 1.5 mg/dL [facility] GLUCOSE 138(H) 70 - 99 mg/dL [facility] CALCIUM 9.7 8.4 - 10.3 mg/dL [facility] EGFR 89 >59 mL/min/1.7 3m2 [facility] Comment:Estimated glomerular filtration rate calculated using the CKD-EPI refit equation. ANION GAP 18 10 - 20 mmol/L [facility] Blood 10/12/2023 11:5 9 AM EDT 10/12/2023 12:02 PM EDT us Tiffany Rodney PA-C LAB BLOOD BKR ORDERABLES Fi nal Result Performing Organization Address [facility] Co de Phone Number [address] [address] * (ABNORMAL) Hemoglobin A1c (09/25/2023 5:41 AM EDT) HEMOGLOBIN A1C 5.9(H) 4.3 - 5.8 % [facility] 09/25/2023 5:41 AM EDT 09/25/2023 5:59 AM EDT us Allen Desouza DO LAB BLOOD BKR ORDERABLES Final Result Performing Organization Address City/[facility]/ZIP Co de Phone Number [address] [address] * (ABNORMAL) Outside LDL (09/23/2010) LDL - External 45(A) 50 - 250 mg/ml us Historical Provider LAB BLOOD ORDERABLES Carrie l Result from Last 3 Months or Most Recently Relevant to Health Maintenance Insurance [employer]OSS MEDEX SUPPLEMENT [employer] MEDEX SUPPLEMENT BL[employer] MEDEX SUPPLEMENT [employer] MEDEX SUPPLEMENT [employer] MEDEX SUPPLEMENT [employer] MEDEX SUPPLEMENT [employer] MEDEX SUPPLEMENT [employer] MEDEX SUPPLEMENT [employer] MEDEX SUPPLEMENT [employer] MEDEX SUPPLEMENT MEDICARE PART A & B MEDICARE PART A & B [employer] SUPPLEMENT BL[employer] MEDEX SUPPLEMENT [employer] MEDEX SUPPLEMENT MEDICARE PART A & B [employer] MEDEX SUPPLEMENT [employer] MEDEX SUPPLEMENT MEDICARE PART A & B Member Subscriber Plan / Payer (Ef fective 2007-Present) Name:Ferny Barron Member ID:[id number] Relation to Subscriber:Self Name:Ferny Barron Subscriber ID:[id number] Payer ID:[id number] Group ID:Not on file Type:Medicare Address: [email or web address] [address] [place] [phone] [employer] CROSS MEDEX SUPPLEMENT MEDICARE PART A & B [employer] MEDEX SU[place] [id number] Advance Directives For more information, please contact: [phone] (9AM - 5PM Teresa/[facility], Sunday-Sunday) Documents on File Type Date Recorded Patient Fuselage Framer Expl anation Healthcare Proxy 09/28/2023 4:34 PM * Full Code (Latest Code Status on File) Date Activated Date Inactivated Comments 09/24/2023 7:10 AM Question Answer Comments Code Status Confirmed With: Patient Code Status Communicated To: Inpatient Attending Care Teams Heavy Duty Diesel Mechanic Relationship Specialty Start Date End Date Erik Perkins DO [email or web address] PCP - General Internal Medicine 05/21/20 Erik Perkins DO [email or web address] Internal Medicine 05/21/20 Ander Cruz MD [address] [place] [address] [email or web address] Hematology and Oncology 05/15/17 Additional Source Comments The information contained in this document represents components of the legal health record. It is not the complete legal health record.[facility]
--- OUTSIDE RECORDS SUMMARY | 2025-04-21 22:19 | XMS_ITS | Encounter Summary ---
Author Organization [facility] Address [address] [facility] [address] [place] [address] Phone Care Team Providers Care Dry Cleaning Counter Clerk Name Role Phone Erik Perkins DO Primary Care Provider [phone] Suzyyunior Erik Salomon DO Unavailable Ander Cruz MD Unavailable [phone] Encounter Details Date Type Department Care Team (Late st Contact Info) Description 09/23/2023 Procedure Pass [facility], [facility] [address] [place] [address] Social History Tobacco Use Types Packs/Day Years [...] 2:57 PM EDT Soledad Quiñonez, DERICK * Greer Suicide Severity Rating Scale (Screener/Recent Self-Report) Question [...] on filedocumented in this encounter Care Teams Dry Cleaning Counter Clerk Relationship Specialty Start Date End Date Erik Perkins DO PCP - General Internal Medicine 05/21/20 Erik Perkins DO Internal Medicine 05/21/20 Ander Cruz MD [address] [place] [address] [id number] [email or web address] Hematology and Oncology 05/15/17 documented as of this encounter Additional Source Comments The information contained in this document represents components of the legal health record. It is not the complete legal health record.[facility]
--- OUTSIDE RECORDS SUMMARY | 2025-04-21 22:19 | XMS_ITS | Encounter Summary ---
Author Organization [facility] Address [address] [facility] [address] [place] [address] Phone Care Team Providers Care Chemical Dependency Attendant Name Role Phone Suzyyunior Erik Latif DO Primary Care Provider [phone] Erik Perkins DO Unavailable Ander Cruz MD Unavailable [phone] Encounter Details Date Type Department Care Team (Late st Contact Info) Description 05/11/2023 Transcribe Orders Virtual Department [address] [place] [address] Erik Perkins DO [address] [facility] [place] [address] [place] [address] [email or web address] Nausea and vomiting, unspecified vomiting type (Primary [...] necessary edited the report originally createdby Talat Matsuk. Erik Perkins DO IMG FL MISC Final Result documented in this encounter Visit Diagnoses Diagnosis Nausea and vomiting, unspecified vomiting type- Primary Nausea and vomiting, unspecified vomiting type documented in this encounter Care Teams Chemical Dependency Attendant Relationship Specialty Start Date End Date Gregorio Erik DO Salomon [email or web address] PCP - General Internal Medicine 05/21/20 Erik Perkins DO Internal Medicine 05/21/20 Ander Cruz MD [address] [place] [address] [email or web address] Hematology and Oncology 05/15/17 documented as of this encounter Additional Source Comments The information contained in this document represents components of the legal health record. It is not the complete legal health record.[facility]
--- OUTSIDE RECORDS SUMMARY | 2025-04-21 22:19 | XMS_ITS | Encounter Summary ---
Author Organization [facility] Address [address] [place] [address] Phone Care Team Providers Care Hoop Flaring Machine Operator Name Role Phone Erik Perkins DO Primary Care Provider [phone] Erik Perkins DO Unavailable Ander Cruz MD Unavailable [phone] Reason for Referral * MRI/CAT Scan - Closed Specialty Diagnoses / Procedures Referred By Pablo bob Referred To Contact Radiology Diagnoses Nonintractable headache, unspecified chronicity pattern, unspecified headache type Procedures CT Head Erik Perkins DO Phone: tel: fax: mailto:[email or web address] Referral ID Status Reason Start Date Expiration Date Visits Re quested Visits Authorized [id number] Closed 06/06/2023 1 1 Encounter Details Date Type Department Care Team ([facility] st Contact Info) Description 06/06/2023 Transcribe Orders Virtual Department [address] [place] [address] Erik Perkins DO [address] [facility] [place] [address] [place] [address] [email or web address] Nonintractable headache, unspecified chronicity pattern, unspecified headache [...] clinician's provided indication for this examination in [facility]: Outside Radiology Order; HEADACHE TECHNIQUE: Multidetector-row [...] clinician's provided indication for this examination in [facility]:Outside Radiology Order; HEADACHE TECHNIQUE: Multidetector-row CT [...] sinussuggestive of chronic sinusitis. Erik Perkins DO [facility] HEAD/NECK Final Result documented in this encounter Visit Diagnoses Diagnosis Nonintractable headache, unspecified chronicity pattern, unspecified headache type- Primary Nonintractable headache, unspecified chronicity pattern, unspecified headache type documented in this encounter Care Teams Hoop Flaring Machine Operator Relationship Specialty Start Date End Date Erik Perkins DO PCP - General Internal Medicine 05/21/20 Erik Perkins DO Internal Medicine 05/21/20 Ander Cruz MD [address] [place] [address] [email or web address] Hematology and Oncology 05/15/17 documented as of this encounter Additional Source Comments The information contained in this document represents components of the legal health record. It is not the complete legal health record.[facility]
--- OUTSIDE RECORDS SUMMARY | 2025-04-21 22:19 | XMS_ITS | Encounter Summary ---
Author Organization [facility] Address [address] [facility] [address] [place] [address] Phone Care Team Providers Care Certified Caregiver Name Role Phone Erik Perkins DO Primary Care Provider [phone] Suzyyunior Erik Salomon DO Unavailable Ander Cruz MD Unavailable [phone] Encounter Details Date Type Department Care Team (Late st Contact Info) Description 10/25/2023 Procedure Pass [place] Admitting Dept - Virtual Department [address] [place] [address] Social History Tobacco Use Types Packs/Day Years [...] on filedocumented in this encounter Care Teams Certified Caregiver Relationship Specialty Start Date End Date Erik Perkins DO [email or web address] PCP - General Internal Medicine 05/21/20 Erik Perkins DO Internal Medicine 05/21/20 Ander Cruz MD [address] [place] [phone] Hematology and Oncology 05/15/17 documented as of this encounter Additional Source Comments The information contained in this document represents components of the legal health record. It is not the complete legal health record.[facility]
--- OUTSIDE RECORDS SUMMARY | 2025-04-21 22:19 | XMS_ITS | Encounter Summary ---
Author Organization [facility] Address [address] [place] [address] [place] [address] Phone Care Team Providers Care Music Engineer Name Role Phone SuzyErik mojica Primary Care Provider [phone] Gregorio Erik Salomon DO Unavailable Ander Cruz MD Unavailable [phone] Encounter Details Date Type Department Care Team (Late st Contact Info) Description 06/06/2023 Procedure Pass [facility], Ct Scan - [facility] [address] [place] [address] Social History Tobacco Use Types Packs/Day Years [...] on filedocumented in this encounter Care Teams Music Engineer Relationship Specialty Start Date End Date Erik Perkins DO [email or web address] PCP - General Internal Medicine 05/21/20 Erik Perkins DO [email or web address] Internal Medicine 05/21/20 Ander Cruz MD [address] [place] [address] [email or web address] Hematology and Oncology 05/15/17 documented as of this encounter Additional Source Comments The information contained in this document represents components of the legal health record. It is not the complete legal health record.[facility]
--- OUTSIDE RECORDS SUMMARY | 2025-04-21 22:19 | XMS_ITS | Encounter Summary ---
Author Organization [facility] Address [address] [facility] [address] [place] [address] Phone Care Team Providers Care Raw Sampler Name Role Phone Erik Perkins Primary Care Provider [phone] SuzyErik mojica DO Unavailable Ander Cruz MD Unavailable [phone] Encounter Details Date Type Department Care Team (Latest Contact Info) Description 12/16/2024 Transcribe Orders Virtual Department [address] [place] [address] Arabella Ayala PA [address] [facility] [place] [address] [place] [address] Solitary pulmonary nodule (Primary Dx) Social History [...] Primary documented in this encounter Care Teams Raw Sampler Relationship Specialty Start Date End Date Erik Perkins DO PCP - General Internal Medicine 05/21/20 Erik Perkins DO Internal Medicine 05/21/20 Ander Cruz MD [address] [place] [address] [email or web address] Hematology and Oncology 05/15/17 documented as of this encounter Additional Source Comments The information contained in this document represents components of the legal health record. It is not the complete legal health record.[facility]
== END 2025-04-21 15:34 | disposition home or self-care (01) ==
LOC: HO.MANLDS 15:33
PROVIDERS: Visit Provider Internal Medicine
DX: E11.9 Type 2 diabetes mellitus without complications (principal)
CPT/HCPCS: 36415; 80053; 83036; 85025

== ENCOUNTER 2025-04-29 18:44 | Observation (INO) | payer MEDICARE, SELFPAY ==
[2025-04-29] VITALS (8 sets, daily range): BP systolic 107–148; BP diastolic 52–65; PULSE 70–85; RESP 12–19; TEMP 36.5–36.7; O2SAT 97–100; BMI 22.1
--- NOTE | 2025-04-29 | ECG_ITS ---
Test Reason : AMS Blood Pressure : */* mmHG Vent. Rate : 80 BPM Atrial Rate : * BPM P-R Int : * ms QRS Dur : 70 ms QT Int : 348 ms P-R-T Axes : * 58 -43 degrees QTcB Int : [address] & T wave abnormality, consider inferior ischemia ST & T wave abnormality, consider anterolateral ischemia Abnormal ECG When compared with ECG of 22-Jan-2025 22:08, No significant changes seen Referred By: Generic ED Physician Electronically Signed By: Eugenio Adams
--- NOTE | ~2025-04-29 | CT_ITS ---
CLINICAL HISTORY: non focal encephalopathy CT head without contrast Comparison: 01/23/2025 Findings: No intracranial mass, midline shift, hydrocephalus, or acute hemorrhage. No CT evidence of acute ischemia. Similar-appearing sequela of chronic microangiopathic white matter ischemic disease. Visualized paranasal sinuses and mastoid air cells normal. Orbits unremarkable. No skull fracture Impression: 1. No acute intracranial abnormalities. This document has been electronically signed by: Rodolfo Ardon MD on 04/29/2025 20:20:26
--- NOTE | 2025-04-29 19:11 | ED.AMS ---
HPI - Altered Mental Status General Chief Complaint: Altered Mental Status Stated Complaint: AMS Time Seen by Provider: 04/29/25 18:51 History of Present Illness ED Provider: Eric Hurst MD HPI narrative: 85-year-old male lives with son who called EMS for questionable altered mental status no focal deficits were reported. The patient himself is a poor historian. Patient reportedly had a stroke 2 years ago is on Eliquis has history of AFib in his diabetic. Patient has fentanyl patches x2 Related Data Home Medications ?Medication ?Instructions ?Recorded ?Confirmed amlodipine 10 mg tablet 10 mg PO DAILY 10/14/23 04/29/25 lisinopril 10 mg tablet 10 mg PO DAILY 10/14/23 04/29/25 fentanyl 100 mcg/hr transdermal 100 mcg topical Q72H 12/01/24 04/29/25 patch levetiracetam 500 mg tablet 500 mg PO DAILY 12/01/24 04/29/25 cholecalciferol (vitamin D3) 25 25 mcg PO DAILY 04/29/25 04/29/25 mcg (1,000 unit) tablet cyclobenzaprine 10 mg tablet 10 mg PO TID PRN Muscle Spasm 04/29/25 04/29/25 Previous Rx's ?Medication ?Instructions ?Recorded metformin 500 mg tablet 500 mg PO BIDWMEAL #60 tabs 10/18/23 omeprazole 20 mg capsule,delayed 20 mg PO BID@0630,1630 #0 caps 10/18/23 release apixaban 5 mg tablet (Eliquis) 5 mg PO BID #0 tabs 10/20/23 docusate sodium 100 mg capsule 100 mg PO BID #60 caps 12/04/24 magnesium hydroxide 400 mg/5 mL 30 ml PO DAILY PRN Constipation 12/04/24 oral suspension (Milk of Magnesia) #200 mL polyethylene glycol 3350 17 gram 17 g PO BID PRN constipation #120 12/04/24 oral powder packet ea finasteride 5 mg tablet 5 mg PO DAILY 90 days #90 tabs 01/16/25 terazosin 5 mg capsule 5 mg PO BEDTIME 90 days #90 caps 01/16/25 fentanyl 50 mcg/hr transdermal 1 patch transdermal Q72H 1 month 01/26/25 patch #5 ea Allergies Allergy/AdvReac Type Severity Reaction Status Date / Time Penicillins Allergy Intermediate Rash Verified 04/29/25 18:58 PMFSH Past Medical History Medical History Elevated bilirubin Fall BPH (benign prostatic hyperplasia) Stroke Afib Diabetes Essential hypertension History of pulmonary embolism Gallbladder sludge Surgical History Previous back surgery Family History Family History Father Heart attack Social History Social History Household Members: Family Household Members Other:: Son Housing: Condominium Do you presently have visiting nurse or other home services: No Unable to assess alcohol history related to: Unknown Alcohol intake: never Comment: IV Ofirmev infusing Patient Tobacco Use Status: Former Tobacco user Tobacco use type: Cigarette Years Smoked: 30 Second Hand Smoke Exposure: No Use of substances other than those prescribed or required for medical reasons: Unknown Advance Directives: Yes Advance Directives on File: Yes Advance Directives Date on File: 12/23/24 Nutrition Risks: No Nutritional Risk service: No Physical Exam ED Exam Exam: EXAM: Gen: Alert frail looking x 2 Head: Atraumatic Eyes: Anicteric, Normal conjunctiva. ENT: Moist mucosa, no pallor. ? Neck: Supple. Skin: ?No observable rash or bruising on exposed or examined skin Respiratory: Breathing comfortably, No distress.Clear to auscultation bilaterally, symmetric chest expansion, No wheeze, rales, ronchi. Cardiovascular: Irregular. No murmurs or rub. Well perfused periphery, warm extremities. No edema. ? Abdominal: No focal tenderness. Soft, no objective distension. No palpable masses or obvious organomegaly. ?No guarding, no rebound tenderness or other peritoneal findings. : No flank tenderness. Neuro: Alert. Gross movement of all extremities intact. ?Oriented x2. No dysarthria or aphasia. No obvious visual deficits though little bit limited to evaluate this on exam. Psych: Calm. Cooperative. MSK: No grossly visible deformity. Vital signs: See flowsheet Vital Signs: Vital Signs - 24 hr 04/29/25 18:56 04/29/25 18:57 04/29/25 19:40 Temperature 97.7 F Pulse Rate 85 81 81 Respiratory Rate 19 17 13 Blood Pressure 148/65 H 148/65 H 135/65 Pulse Oximetry 100 97 98 Oxygen Delivery Method Room Air Room Air Room Air 04/29/25 20:26 Temperature Pulse Rate 82 Respiratory Rate 13 Blood Pressure 130/64 Pulse Oximetry 97 Oxygen Delivery Method Room Air BMI result Body Mass Index 22.1 Medications Administered Generic Name Dose Route Start Last Admin Trade Name Heide PRN Reason Stop Dose Admin Amlodipine Besylate 10 mg 04/30/25 09:00 04/30/25 09:22 Amlodipine Besylate 10 Mg Tablet PO 10 mg DAILY [facility] Administration Protocol Apixaban 5 mg 04/30/25 09:00 04/30/25 09:22 Apixaban 5 Mg Tablet PO 5 mg BID SHANNA Administration Finasteride 5 mg 04/30/25 09:00 04/30/25 09:18 Finasteride 5 Mg Tablet PO Not Given DAILY [facility] Insulin Human Lispro 0 unit 04/30/25 07:30 04/30/25 06:55 Insulin Lispro 100 Unit/Ml 3 Ml Vial SUBCUT Not Given QIDACHS [facility] Protocol Levetiracetam 500 mg 04/30/25 09:00 04/30/25 09:22 Levetiracetam 500 Mg Tablet PO 500 mg DAILY SHANNA Administration Lisinopril 10 mg 04/30/25 09:00 04/30/25 09:21 Lisinopril 10 Mg Tablet PO 10 mg DAILY [facility] Administration Protocol Omeprazole 20 mg 04/30/25 06:30 04/30/25 06:17 Omeprazole 20 Mg Capsule.Dr PO 20 mg BID@0630,1630 SHANNA Administration Sodium Chloride 3 ml 04/30/25 00:00 04/30/25 09:28 0.9 % Sodium Chloride Flush 3 Ml Syringe IVFLUSH 3 ml QSHIFT SHANNA Administration Discontinued Medications Generic Name Dose Route Start Last Admin Trade Name Freq PRN Reason Stop Dose Admin Magnesium Sulfate 2 gm in 50 mls @ 25 mls/hr 04/29/25 23:24 04/30/25 02:22 Magnesium Sulfate/H2o IV 04/30/25 01:23 Infused ONCE ONE Infusion Medical Decision Making Medical Decision Making MDM Narrative: Medical Decision Makin-year-old male diabetes AFib Eliquis comes from home nonspecific and no clear timeline altered mental status. Could be encephalopathy toxic versus metabolic. In reviewing the patient's chart and getting additional history from the son that arrived at the bedside the patient has a history of CVA 2023 this was a small area and more importantly he at the time was diagnosed with extensive cerebral venous thrombus and saw Neurology at the time. He has been on apixaban for AFib, PE and dural venous thrombus. He has no focal deficits the son feels he is nearly back to baseline but slightly and nonspecifically confused still. There was certainly no focal deficits. Lab work reassuring. Vital signs stable. No fever no obvious toxicologic or metabolic explanation of his transient mental status changes. Could be TIA. I think he would benefit from MRI MRV in the morning to see the status of the previous dural thrombus and evaluate for ischemia. Patient and son amenable to this. Preliminary Favored Differential Diagnosis: TIA, CVA, dural venous thrombus with complication, seizure, less likely related to fentanyl as the patient has been on his normal 150 mcg fentanyl patches and did not appear to have an opioid toxidrome here in the ED among additional considered etiologies Testing Interpreted Independently: ECG AFib without ischemic changes. Rhythm on telemetry with occasional pacemaker capture Radiology or Lab testing Results Reviewed: ?Noncontrast head CT without acute abnormalities Consults: ?See below for details Independent Historians/External Chart Reviews: ?See below for details Social Determinants of Health Impacting MDM/Planning: ?See below for details Lab Data 04/30/25 04:18 04/30/25 04:18 Labs: Lab Results 04/29/25 04/29/25 04/29/25 Range/Units 19:10 19:39 19:47 WBC 9.6 (4.8-10.8) X10*3/uL RBC 4.70 (4.60-5.80) X10*6/uL Hgb 13.4 L (14.0-18.0) g/dl Hct 41.6 L (42.0-52.0) % MCV 88.5 (80.0-98.0) fL MCH 28.5 (27.0-33.0) pg MCHC 32.2 (31.0-36.0) g/dl RDW 13.9 (11.0-16.0) % Plt Count 188 (160-400) X10*3/uL MPV 9.7 (9.4-12.4) fL Immature Gran % (Auto) 0.4 (0.0-0.4) % Neut % (Auto) 78.7 H (45-73) % Lymph % (Auto) 15.0 L (20-40) % Kimball % (Auto) 5.0 (2-11) % Eos % (Auto) 0.5 (0-4) % Baso % (Auto) 0.4 (0-2) % Lymph # (Auto) 1.4 (1.2-4.9) X10*3/uL Kimball # (Auto) 0.5 (0.1-1.2) X10*3/uL Eos # (Auto) 0.1 (0.0-0.4) X10*3/uL Baso # (Auto) 0.0 (0.0-0.2) X10*3/uL Abs Immat Gran (auto) 0.04 H (0.00-0.03) X10*3/uL Absolute Neuts (auto) 7.5 (2.0-8.3) x10*3/uL Absolute Nucleated RBC 0.000 (0.0-0.012) X10*3/uL Nucleated RBC % (auto) 0.0 (0.0-0.2) /100WBC PT 20.1 H (11.2-13.5) SEC INR 1.7 H (0.9-1.1) Sodium 137 (135-145) mmol/L Potassium 4.0 (3.3-5.1) mmol/L Chloride 102 (96-108) mmol/L Carbon Dioxide 23 (22-29) mmol/L Anion Gap 16 (12-20) BUN 13 (9-16) mg/dL Creatinine 0.74 (0.5-1.4) mg/dL Estim Creat Clear Calc 62.3 Estimated GFR > 60 POC Glucose 193 H (60-115) mg/dL Random Glucose 243 H (60-115) mg/dL Calcium 9.3 (8.4-10.2) mg/dL Magnesium 1.6 (1.6-2.6) mg/dL Total Bilirubin 1.1 H (0.0-1.0) mg/dL Direct Bilirubin 0.4 (0.0-0.5) mg/dL AST 15 (5-37) U/L ALT 7 (0-40) U/L Alkaline Phosphatase 85 (39-117) U/L Troponin I High Sens < 2.7 (<3.5-35.0) ng/L Total Protein 6.9 (6.5-8.0) g/dL Albumin 4.7 (3.5-5.0) g/dL Lipase 9 (8-78) U/L Salicylates < 5.0 L (15-30) mg/dL Acetaminophen < 3 (<30) mcg/mL Ethyl Alcohol < 10 mg/dL Influenza Type A (PCR) NEGATIVE (Negative) Influenza Type B (PCR) NEGATIVE (Negative) RSV RNA Qual (PCR) NEGATIVE (Negative) SARS-CoV-2 RNA (RT-PCR) NEGATIVE (Negative) Procedures Procedure Narrative Procedure Narrative: Ultrasound Guided Peripheral Intravenous Catheter Placement Indication: Intravenous Access Location: Right ??Vascular Location of Catheter Tip: Brachial Provider: Self I was approached by nursing staff and informed that multiple unsuccessful attempts had been made to establish IV access in the patient. The patients arm was surveyed with the ultrasound for verification of vessel collapsibility, patency, depth and caliber, as well as identification of nearby structures. The target area was prepped with chlorhexidine. A tourniquet was placed proximally on the extremity. Under real-time ultrasound guidance, an [20 G 2.25 inch AccuCath nontunneled catheter] ? was advanced into the target vein. Dark blood was visualized in the flash chamber. The catheter was easily advanced into the vein. The catheter was evacuated of air and flushed with sterile saline. The catheter was secured in place with a tegaderm. The patient tolerated the procedure well and there were no complications. Estimated Blood Loss: 1mL Total Time for Procedure: 5min Images Stored CPT: 20674; 83268 Discharge Plan Discharge Patient Disposition: Admitted As Inpatient Interventions: Admission Worksheet (ED) Last Done: 04/29/25 21:54
[2025-04-29 19:15] LABS: Glucose, Whole Blood 193 mg/dL (60-115)
[2025-04-29 19:45] LABS: MANUAL DIFF FLAG NO
[2025-04-29 19:47] LABS: Hematocrit 41.6 % (42.0-52.0); Hemoglobin 13.4 g/dl (14.0-18.0); Imm Gran Abs Auto 0.04 X10*3/uL (0.00-0.03); Imm Gran Pct Auto 0.4 % (0.0-0.4); Lymphocytes Absolute Auto 1.4 X10*3/uL (1.2-4.9); Mean Corpuscular HGB Conc 32.2 g/dl (31.0-36.0); Mean Corpuscular Hemoglobin 28.5 pg (27.0-33.0); Mean Corpuscular Volume 88.5 fL (80.0-98.0); NRBC Abs Auto 0.000 X10*3/uL (0.0-0.012); NRBC Pct Auto 0.0 /100WBC (0.0-0.2); Platelet Count 188 X10*3/uL (160-400); Red Blood Count 4.70 X10*6/uL (4.60-5.80); White Blood Count 9.6 X10*3/uL (4.8-10.8)
[2025-04-29 20:10] LABS: Acetaminophen LAB < 3 mcg/mL (<30); Alanine Aminotransferase 7 U/L (0-40); Albumin Level 4.7 g/dL (3.5-5.0); Alkaline Phosphatase 85 U/L (39-117); Anion Gap 16 (12-20); Aspartate Amino Transferase 15 U/L (5-37); Blood Urea Nitrogen 13 mg/dL (9-16); Calcium 9.3 mg/dL (8.4-10.2); Carbon Dioxide 23 mmol/L (22-29); Chloride 102 mmol/L (96-108); Creatinine Clr Calc Pharmacy 62.3; Estimated Glomerular Filt Rate > 60; Lipase 9 U/L (8-78); Magnesium 1.6 mg/dL (1.6-2.6); Potassium 4.0 mmol/L (3.3-5.1); Salicylate < 5.0 mg/dL (15-30); Sodium 137 mmol/L (135-145); Total Protein 6.9 g/dL (6.5-8.0)
[2025-04-29 20:11] LABS: INTERNATIONAL NORM RATIO 1.7 (0.9-1.1); Prothrombin Time 20.1 SEC (11.2-13.5)
[2025-04-29 20:16] LABS: Troponin-I High Sensitivity < 2.7 ng/L (<3.5-35.0)
[2025-04-29 20:28] LABS: Resp Syncy Virus RNA Qual PCR NEGATIVE (Negative); SARS COV2 PCR INHOUSE NEGATIVE (Negative)
--- NOTE | 2025-04-29 20:43 | PM.IMHP ---
History of Present Illness Date of Service: 04/29/25 Chief Complaint: Slurred speech An 85-year-old male with a history of atrial fibrillation (on apixaban), diabetes, prior stroke (2023, with associated extensive cerebral venous thrombosis), BPH, hypertension, and prior pulmonary embolism, presented from home with altered mental status (AMS) of unclear onset. The patient is a poor historian; his son reports the patient is nearly back to baseline but remains slightly confused. The patient is on chronic fentanyl patches (total 150 mcg/hr), levetiracetam, mirtazapine, and antihypertensives. No recent medication changes. No fever, no signs of infection, and no clear toxic or metabolic etiology identified in the ED. Fentanly 100 mcg transdermal was removed by the ED clinician, currently only Fentanyl [address]. Diagnostic studies Hgb 13.4, Hct 41.6, WBC and platelets within normal limits. PT (20.1 sec) and INR (1.7), consistent with anticoagulation. Electrolytes within normal limits. Renal function normal. Glucose elevated POC 193, random 243. Toxicology: Salicylate, acetaminophen, and ethanol levels undetectable Troponin normal. No evidence of acute infection or metabolic derangement. Imaging and Other Studies: Noncontrast head CT: No acute abnormalities. ECG: Atrial fibrillation, no ischemic changes. Occasional pacemaker capture. Collateral information obtained from keith Govea at bedside: Pre-hospital cognition and function obtained from keith Govea at bedside: Orientation: Intact Memory: long standing mild short-term memory impairment characterized by misplaced in items, and intact long-term memory ADLs: Independent ADLs: Assistance, keith Aldana assistance with medication management by filling his pill box Mobility: Ambulate independently with a walker [facility] Medical History Elevated bilirubin Fall BPH (benign prostatic hyperplasia) Stroke Afib Diabetes Essential hypertension History of pulmonary embolism Gallbladder sludge Family History Father Heart attack Surgical History Previous back surgery Social History Household Members: Family Household Members Other:: Son Housing: Condominium Do you presently have visiting nurse or other home services: No Unable to assess alcohol history related to: Unknown Alcohol intake: never Comment: IV Ofirmev infusing Patient Tobacco Use Status: Former Tobacco user Tobacco use type: Cigarette Years Smoked: 30 Second Hand Smoke Exposure: No Use of substances other than those prescribed or required for medical reasons: Unknown Advance Directives: Yes Advance Directives on File: Yes Advance Directives Date on File: 12/23/24 Nutrition Risks: No Nutritional Risk service: No Meds Allergies Allergy/AdvReac Type Severity Reaction Status Date / Time Penicillins Allergy Intermediate Rash Verified 04/29/25 18:58 Home Medications ?Medication ?Instructions ?Recorded ?Confirmed ?Last Taken ?Type amlodipine 10 mg tablet 10 mg PO DAILY 10/14/23 04/29/25 04/29/25 History lisinopril 10 mg tablet 10 mg PO DAILY 10/14/23 04/29/25 04/29/25 History fentanyl 100 mcg/hr transdermal 100 mcg topical Q72H 12/01/24 04/29/25 04/28/25 History patch levetiracetam 500 mg tablet 500 mg PO DAILY 12/01/24 04/29/25 04/29/25 History cholecalciferol (vitamin D3) 25 25 mcg PO DAILY 04/29/25 04/29/25 04/29/25 History mcg (1,000 unit) tablet cyclobenzaprine 10 mg tablet 10 mg PO TID PRN Muscle Spasm 04/29/25 04/29/25 Unknown History Physical Exam Vital Signs and Narrative: Vital Signs: Last Vital Signs Temp 97.7 F 04/29/25 18:56 Pulse 85 04/29/25 18:56 Resp 19 04/29/25 18:56 BP 148/65 H 04/29/25 18:56 Pulse Ox 100 04/29/25 18:56 O2 Del Method Room Air 04/29/25 18:56 BMI result Body Mass Index 22.1 General: Alert, oriented, in no acute distress and cooperative. Afebrile. HEENT: Head normocephalic, atraumatic. PER, EOMI. Sclerae anicteric, conjunctiva clear. Oropharynx without erythema or exudate. Mucous membranes moist. Neck: Supple Heart: RRR, no murmurs, left chest wall PPM Lungs: CTABL. No wheezes, rales, or rhonchi. Normal respiratory effort. Abdomen: Soft, non tenderness, nondistended, normoactive bowel sounds. Extremities: No calf tenderness bilaterally, no swelling Neurologic: mild dysarthria, motor 5/5 through out, tracking intact with eyes, facial symmetry Results Labs 04/30/25 04:18 04/30/25 04:18 Labs: Laboratory Results - last 24 hr 04/29/25 04/29/25 04/29/25 19:10 19:39 19:47 MCV 88.5 MCH 28.5 MCHC 32.2 RDW 13.9 Plt Count 188 MPV 9.7 Immature Gran % (Auto) 0.4 Neut % (Auto) 78.7 H Lymph % (Auto) 15.0 L Glascock % (Auto) 5.0 Eos % (Auto) 0.5 Baso % (Auto) 0.4 Lymph # (Auto) 1.4 Glascock # (Auto) 0.5 Eos # (Auto) 0.1 Baso # (Auto) 0.0 Abs Immat Gran (auto) 0.04 H Absolute Neuts (auto) 7.5 Absolute Nucleated RBC 0.000 Nucleated RBC % (auto) 0.0 PT 20.1 H INR 1.7 H Anion Gap 16 Estim Creat Clear Calc 62.3 Estimated GFR > 60 POC Glucose 193 H Random Glucose 243 H Calcium 9.3 Magnesium 1.6 Total Bilirubin 1.1 H Direct Bilirubin 0.4 AST 15 ALT 7 Alkaline Phosphatase 85 Troponin I High Sens < 2.7 Total Protein 6.9 Albumin 4.7 Lipase 9 Salicylates < 5.0 L Acetaminophen < 3 Ethyl Alcohol < 10 Influenza Type A (PCR) NEGATIVE Influenza Type B (PCR) NEGATIVE RSV RNA Qual (PCR) NEGATIVE SARS-CoV-2 RNA (RT-PCR) NEGATIVE Assessment and Plan (1) Slurred speech: Status: Acute Plan 85-year-old male with multiple vascular risk factors (AFib, prior CVA, diabetes, prior PE), on anticoagulation, presenting with acute altered mental status associated with slurred speech. No evidence of infection, metabolic, or toxicologic cause on initial workup. Labs notable for therapeutic anticoagulation, mild hyperglycemia, and mild anemia. Imaging unremarkable. Possible TIA Plan Admit to observation for close monitoring and further workup MRI wo contrast/MRV brain, to assess for acute ischemia, recurrence/progression of dural venous thrombosis, or other structural pathology. Neuro checks q 4 hrs Monitor on telemetry Neurology consulted NPO pending bedside swallow evaluation. PROPERTY MANAGEMENT COORDINATOR eval if bedside swallow unsuccessful Chronic back pain BPH with LUTs Diet controlled diabetes Atrial fibrillation: rate controlled Urine drug screen pending Monitor blood glucose levels closely Continue home medications A1c pending Goals of care Healthcare proxy: keith Isaacs Code status: Full Quality Stroke Does the patient have a stroke diagnosis?: No VTE Prior VTE?: Yes VTE Risk Level:: Medical - moderate - high VTE Device Contraindication: N/A - Device Ordered VTE Drug Contraindication: N/A - Med Ordered
--- OUTSIDE RECORDS SUMMARY | 2025-04-29 21:14 | XMS_ITS | Encounter Summary ---
Author Organization [facility] Address [address] [place] [address] Phone Care Team Providers Care Terrazzo Polisher Helper Name Role Phone Erik Perkins DO Primary Care Provider [phone] Erik Perkins DO Unavailable Kathleen Figueroa MD Unavailable [phone] Jeffry Bowman MD Unavailable [phone] Ander Cruz MD Unavailable [phone] Encounter Details Date Type Department Care Team (Late st Contact Info) Description 12/08/2020 Procedure Pass [facility] [address] [place] [address] Social History Tobacco Use Types Packs/Day Years [...] on filedocumented in this encounter Care Teams Terrazzo Polisher Helper Relationship Specialty Start Date End Date Erik Perkins DO [email or web address] PCP - General Internal Medicine 05/21/20 Erik Perkins DO Internal Medicine 05/21/20 Kathleen Figueroa MD [address] [place] [address] [facility], [place], [place] [id number] Historical LMR Provider 02/26/17 Jeffry Bowman MD [address] [place] [address] [facility], [place], [place] [id number] Historical LMR Provider 02/26/17 2 Ander Cruz MD [address] [place] [address] [phone] Hematology and Oncology 05/15/17 documented as of this encounter Additional Source Comments The information contained in this document represents components of the legal health record. It is not the complete legal health record.[facility]
--- OUTSIDE RECORDS SUMMARY | 2025-04-29 21:14 | XMS_ITS | Encounter Summary ---
Author Organization [facility] Address [address] [facility] [address] [place] [address] Phone Care Team Providers Care Review Trainer Name Role Phone Suzyyunior Erik Latif DO Primary Care Provider [phone] Erik Perkins DO Unavailable Ander Cruz MD Unavailable [phone] Encounter Details Date Type Department Care Team (Late st Contact Info) Description 05/11/2023 Transcribe Orders Virtual Department [address] [place] [address] Erik Perkins DO [address] [facility] [place] [address] [place] [address] [email or web address] Nausea and vomiting, unspecified vomiting type (Primary [...] type documented in this encounter Care Teams Review Trainer Relationship Specialty Start Date End Date Gregorio Erik DO Salomon [email or web address] PCP - General Internal Medicine 05/21/20 Erik Perkins DO Internal Medicine 05/21/20 Ander Cruz MD [address] [place] [address] [email or web address] Hematology and Oncology 05/15/17 documented as of this encounter Additional Source Comments The information contained in this document represents components of the legal health record. It is not the complete legal health record.[facility]
--- OUTSIDE RECORDS SUMMARY | 2025-04-29 21:14 | XMS_ITS | Encounter Summary ---
Author Organization [facility] Address [address] [facility] [address] [place] [address] Phone Care Team Providers Care Fish Grader Name Role Phone Erik Perkins DO Primary Care Provider [phone] Erik Perkins DO Unavailable Ander Cruz MD Unavailable [phone] Encounter Details Date Type Department Care Team (Latest Contact Info) Description 12/16/2024 Transcribe Orders Virtual Department 30 [place] [address] Arabella Ayala PA [address] [facility] [place] [address] [place] [address] Solitary pulmonary nodule (Primary Dx) Social History [...] Primary documented in this encounter Care Teams Fish Grader Relationship Specialty Start Date End Date Erik Perkins DO PCP - General Internal Medicine 05/21/20 Erik Perkins DO Internal Medicine 05/21/20 Ander Cruz MD [address] [place] [phone] [email or web address] Hematology and Oncology 05/15/17 documented as of this encounter Additional Source Comments The information contained in this document represents components of the legal health record. It is not the complete legal health record.[facility]
--- OUTSIDE RECORDS SUMMARY | 2025-04-29 21:14 | XMS_ITS | Encounter Summary ---
Author Organization [facility] Address [address] [place] [address] Phone Care Team Providers Care Election Clerk Name Role Phone Erik Perknis DO Primary Care Provider [phone] Erik Perkins DO Unavailable Kathleen Figueroa MD Unavailable [phone] Jeffry Bowman MD Unavailable [phone] Ander Cruz MD Unavailable [phone] Reason for Referral * Outpatient Procedure - Closed Specialty Diagnoses / Procedures Referred By Contmari t Referred To Contact Diagnoses Atypical chest pain Procedures Adult Echo TTE Erik Perkins DO Phone: tel: fax: mailto:[email or web address] Referral ID Status Reason Start Date Expiration Date Visits Re quested Visits Authorized [id number] Closed 12/08/2020 12/08/2021 1 1 Encounter Details Date Type Department Care Team (Late st Contact Info) Description 12/08/2020 Transcribe Orders Virtual Department [address] [place] [address] Erik Perkins DO [address] [facility] [place] [address] [place] [address] [email or web address] Atypical chest pain (Primary Dx); Chest pain, [...] pain documented in this encounter Care Teams Election Clerk Relationship Specialty Start Date End Date Erik Perkins DO PCP - General Internal Medicine 05/21/20 Erik Perkins DO Internal Medicine 05/21/20 Kathleen Figueroa MD [address] [place] [address] [facility], [place], [place] [id number] Historical LMR Provider 02/26/17 Jeffry Bowman MD [address] [place] [address] [facility] [place], [place] [phone] Historical LMR Provider 02/26/17 2 Ander Cruz MD [address] [place] [address] [phone] Hematology and Oncology 05/15/17 documented as of this encounter Additional Source Comments The information contained in this document represents components of the legal health record. It is not the complete legal health record.[facility]
--- OUTSIDE RECORDS SUMMARY | 2025-04-29 21:14 | XMS_ITS | Clinical Summary ---
Author Organization [facility] Address [address] [place] [address] Phone Care Team Providers Care Medical Appointment Scheduler Name Role Phone SuzyErik mojica Primary Care Provider [phone] Erik Perkins DO Unavailable Ander Cruz MD Unavailable [phone] Allergies Active Allergy Reactions Criticality Noted [...] patch onto the skin every third day. 03/23/2025 Active Active Problems Problem Noted Date Diagnosed [...] 04/08/2025 2:00 PM EST Home Care Visit [facility] [address] [place] [address] Nicci Acevedo, PT PT OASIS DISCHARGE VISIT 04/01/2025 12:45 PM EST Home Care Visit [facility] [address] [place] [address] Nicci Acevedo, PT PT HOME VISIT 03/30/2025 12:45 PM EST Home Care Visit [facility] [address] [place] [address] Tootie Islas, OT OT DISCIPLINE DISCHARGE VISIT 03/26/2025 2:15 PM EST Home Care Visit [facility] [address] [place] [address] Nicci Acevedo, PT PT HOME VISIT 03/25/2025 2:00 PM EST Home Care Visit [facility] [address] [place] [address] Tootie Islas, OT OT HOME VISIT 03/24/2025 2:15 PM EST Home Care Visit [facility] [address] [place] [address] Nicci Acevedo, PT PT HOME VISIT 03/23/2025 3:00 PM EST Home Care Visit [facility] [address] [place] [address] Sylwia Leo, DERICK SN DISCIPLINE DISCHARGE VISIT 03/23/2025 2:00 PM EST Home Care Visit [facility] [address] [place] [address] Tootie Islas, OT OT HOME VISIT 03/20/2025 12:45 PM EST Home Care Visit [facility] [address] [place] [address] Liana Fernandes, MATERIAL REQUISITIONER MATERIAL REQUISITIONER HOME VISIT 03/18/2025 1:15 PM EST Home Care Visit [facility] [address] [place] [address] Tootie Islas, OT OT HOME VISIT 03/18/2025 1:00 PM EST Home Care Visit [facility] [address] [place] [address] Nicci Acevedo, PT PT HOME VISIT 03/17/2025 12:30 PM EST Home Care Visit [facility] [address] [place] [address] Tootie Islas, OT OT HOME VISIT 03/16/2025 1:00 PM EST Home Care Visit [facility] [address] [place] [address] Nicci Acevedo, PT PT HOME VISIT 03/11/2025 2:15 PM EDT Home Care Visit [facility] [address] [place] [address] Tootie Islas, OT OT HOME VISIT 03/11/2025 12:00 PM EDT Home Care Visit [facility] [address] [place], [place] [phone] Liana Fernandes LPN MATERIAL REQUISITIONER HOME VISIT 03/10/2025 1:00 PM EDT Home Care Visit [facility] [address] [place], [place] [phone] Nicci Acevedo, PT PT TFA VISIT 03/09/2025 12:00 PM EDT Home Care Visit [facility] [address] [place], [place] [phone] Tootie Islas, OT OT HOME VISIT 03/04/2025 1:00 PM EDT Home Care Visit [facility] [address] [place] [address] Sylwia Leo, RN SN HOME VISIT 03/04/2025 11:45 AM EDT Home Care Visit [facility] [address] [place], [place] [phone] Tootie Islas, OT OT TFA VISIT 03/03/2025 1:15 PM EDT Home Care Visit [facility] [address] [place], [place] [phone] Liana Fernandes, LATRICE MATERIAL REQUISITIONER HOME VISIT 03/03/2025 11:00 AM EDT Home Care Visit [facility] [address] [place], [place] [phone] Nicci Acevedo, PT PT HOME VISIT 02/27/2025 12:30 PM EDT Home Care Visit [facility] [address] [place], [place] [phone] Serena Castro, PT PT HOME VISIT 02/26/2025 1:00 PM EDT Home Care Visit [facility] [address] [place], [place] [phone] Tootie Islas, OT OT HOME VISIT 02/26/2025 10:00 AM EDT Home Care Visit [facility] [address] [place] [phone] Sylwia Leo, RN SN HOME VISIT 02/25/2025 1:15 PM EDT Home Care Visit [facility] [address] [place] [phone] Tootie Islas, OT OT HOME VISIT 02/20/2025 1:30 PM EDT Home Care Visit [facility] [address] [place] [phone] Nancy Abrams, PT PT HOME VISIT 02/19/2025 9:00 AM EDT Home Care Visit [facility] [address] [place] [address] Sylwia Leo, DERICK SN HOME VISIT 02/18/2025 11:45 AM EDT Home Care Visit [facility] [address] [place] [address] Tootie Islas, OT OT HOME VISIT 2025 1:30 PM EDT Home Care Visit [facility] [address] [place] [phone] Nancy Abrams, PT PT EVALUATION 02/16/2025 2:15 PM EDT Home Care Visit [facility] [address] [place] [address] Tootie Islas, OT OT EVALUATION 02/16/2025 1:00 PM EDT Home Care Visit [facility] [address] [place] [address] Sylwia Leo, RN SN HOME VISIT 02/14/2025 Plan of Care Documentation [facility] [address] [place], [place] [phone] 02/13/2025 10:00 AM EDT Home Care Visit [facility] [address] [place] [phone] Sylwia Leo, DERICK SN OASIS START OF CARE (SOC) 02/12/2025 Home Care Visit [facility] [address] [place] [phone] Naomi Sierra RN TELEPHONE ENCOUNTER 02/09/2025 Orders Only [facility] [address] [place] [phone] Homehealth, Interface ProviderMD from Last 3 Months [...] EDT) SODIUM 137 133 - 146 mmol/L [facility] CHLORIDE 102 96 - 108 mmol/L [facility] POTASSIUM 5.1 3.3 - 5.1 mmol/L [facility] Comment:Specimen slightly he molyzed, result may be falsely elevated. CO2 22 21 - 35 mmol/L [facility] BUN 22(H) 6 - 19 mg/dL [facility] CREATININE 0.80 0.5 - 1.5 mg/dL [facility] GLUCOSE 138(H) 70 - 99 mg/dL [facility] CALCIUM 9.7 8.4 - 10.3 mg/dL [facility] EGFR 89 >59 mL/min/1.7 3m2 [facility] Comment:Estimated glomerular filtration rate calculated using the CKD-EPI refit equation. ANION GAP 18 10 - 20 mmol/L [facility] Blood 10/12/2023 11:5 9 AM EDT 10/12/2023 12:02 PM EDT us Tiffany Rodney PA-C LAB BLOOD BKR ORDERABLES Fi nal Result [address] [address] * (ABNORMAL) Hemoglobin A1c (09/25/2023 5:41 AM EDT) HEMOGLOBIN A1C 5.9(H) 4.3 - 5.8 % [facility] 09/25/2023 5:41 AM EDT 09/25/2023 5:59 AM EDT us Allen Desouza DO LAB BLOOD BKR ORDERABLES Final Result Performing Organization Address City/[facility]/ZIP Co de Phone Number [address] [phone] * (ABNORMAL) Outside LDL (09/23/2010) LDL - External 45(A) 50 - 250 mg/ml us Historical Provider LAB BLOOD ORDERABLES Carrie l Result from Last 3 Months or Most Recently Relevant to Health Maintenance Insurance [place] [place], [place] [id number] [place] [address] CROSS MEDEX SUPPLEMENT [employer] MEDEX SUPPLEMENT [employer] MEDEX SUPPLEMENT [employer] MEDEX SUPPLEMENT [employer] MEDEX SUPPLEMENT [email or web address][email or web address] SUPPLEMENT [employer] MEDEX SUPPLEMENT BLUE CROSS MEDEX SUPPLEMENT BLUE CROSS MEDEX SUPPLEMENT BLUE CROSS MEDEX SUPPLEMENT MEDICARE PART A & B [employer] MEDEX SUPPLEMENT MEDICARE PART A & B [employer] MEDEX SUPPLEMENT [employer] MEDEX SUPPLEMENT [employer] MEDEX SUPPLEMENT MED[place] PART A & [place] [id number] [employer] CROSS MEDEX SUPPLEMENT [employer] MEDEX SUPPLEMENT [place] [id number] [place] [address] BLUE CROSS MEDEX SUPPLEMENT MEDICARE PART A & B MEDEX SUPPLEMENT MEDICARE PART A & B Advance Directives For more information, please contact: [phone] (9AM - 5PM Teresa/[facility], Sunday-Sunday) Documents on File Type Date Recorded Patient Second Cook And Baker Expl anation Healthcare Proxy 09/28/2023 4:34 PM * Full Code (Latest Code Status on File) Date Activated Date Inactivated Comments 09/24/2023 7:10 AM Question Answer Comments Code Status Confirmed With: Patient Code Status Communicated To: Inpatient Attending Care Teams Medical Appointment Scheduler Relationship Specialty Start Date End Date Erik Perkins DO [email or web address] PCP - General Internal Medicine 05/21/20 Erik Perkins DO Internal Medicine 05/21/20 Ander Cruz MD [address] [place] [phone] [email or web address] Hematology and Oncology 05/15/17 Additional Source Comments The information contained in this document represents components of the legal health record. It is not the complete legal health record.[facility]
--- OUTSIDE RECORDS SUMMARY | 2025-04-29 21:14 | XMS_ITS | Continuity of Care Document ---
Author Organization [facility], [facility] Address [address] [place] [address] [place] [address] Assessment No assessment recorded. Plan of Treatment Reminders Order Date Submit Date Provider Last Modified By Organization Details Last Modified Time Details Appointments None record ed. Lab None record ed. Referral None record ed. Procedures None record ed. Surgeries None record ed. Imaging None record ed. Medication Orders None record ed. Patient TargetsNo targets recorded. Patient InstructionsNo instructions recorded. Reason for Referral None Reported. 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 72667847 Active 2017 Not Available [facility] 3 11:56:21 Post-lami nectomy syndrome 65759440 Active 2017 Not Available [facility] 3 11:56:21 Myofascia l pain syndrome 970747946 Active 2017 Not Available [facility] 3 11:56:21 Radicular pain 86849055 Active 2017 lumbar Not Available [facility] 3 11:56:21 Obstructi ve sleep apnea syndrome 87784123 Active 2017 on CPAP Not Available [facility] 3 11:56:22 Hyperchol esterolem ia 28954878 Active 2017 Not Available [facility] 3 11:56:21 Cervico-o ccipital neuralgia 56502866 Active 2017 Not Available [facility] 3 11:56:21 Chronic atrial fibrillat ion 423228483 Active 2019 Not Available [facility] 3 11:56:21 Therapeut ic opioid induced constipat ion 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 9102 Active 2019 Not Available [facility] 3 11:56:21 Atrial fibrillat ion 53549533 Active 2021 Not Available [facility] 3 11:56:21 Acquired right hallux valgus 39434745480 4106 Active 2021 Not Available [facility] 3 11:56:21 Chronic pain 38086484 Active 2021 Not Available [facility] 3 11:56:22 Diabetic foot ulcer 808309832 Active 2021 Not Available [facility] 3 11:56:21 Actinic keratosis 282700346 Active 2022 Not Available [facility] 3 11:56:21 Intractab le nausea and vomiting 520491224 Active 2022 Erik Perkins DO [address] [place] [address], [address], [facility] 3 14:26:39 Diffuse spasm of esophagus 34520555 Active 2023 Erik Perkins DO [address] [place] [address], [address], [facility] 4 13:57:14 Headache 30631685 Active 2023 Erik Perkins DO [address] [place] [address], [address], [facility] 4 14:01:14 Impacted cerumen of bilateral ears 36273670235 27113 Active 2023 JANY LONG [address] [place] [address], [address], [facility] 4 15:18:08 Cerebrova scular accident 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 2023 JANY LONG [address] [place], [address], [facility] 4 13:37:07 Cholecyst itis 56699372 Active 2023 JANY LONG [address] [place] [address], [address], [facility] 4 13:39:08 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 986468692 Active 2023 JANY LONG [address] [place] [address], [address], [facility] 4 13:40:30 Depressiv e disorder 82683507 Active 2023 JANY LONG [address] [place] [address], [address], [facility] 4 13:41:00 Seizure disorder 380250197 Active 2023 JANY LONG [address] [place] [address], [address], [facility] 4 13:42:42 Subclinic al hyperthyr oidism 108957439 Active 2023 JANY LONG [address] [place] [address], [address], [facility] 4 13:50:37 Chronic constipat ion 994984030 Active 2024 JANY LONG [address] [place] [address], [address], [facility] 5 13:11:49 Biliary sludge 71848772 Active 2024 JANY LONG [address] [place] [address], [address], [facility] 13:12:05 Common bile duct calculus 377429364 Active 2024 JANY LONG [address] [place] [address], [address], [facility] 13:12:19 Nodule of lung 839786217 Active 2024 JANY LONG [address] [place] [address], [address], [facility] 13:12:59 Retention of urine 680308832 Active 2024 JANY LONG [address] [place] [address], [address], [facility] 15:42:01 Recurrent urinary tract infection 415982247 Active 2024 JANY LONG [address] [place] [address], [address], [facility] 09:02:20 Complicat ion of urinary catheter 105278100 Active 2024 JANY LONG [address] [place] [address], [address], [facility] 09:02:41 Recurrent falls 175836866 Active 2024 JANY LONG [address] [place] [address], [address], [facility] 09:02:57 Spasm 25128465 Active 2024 Erik Perkins DO [address] [place] [address], [address], [facility] 13:48:01 Problem Notes None recorded. Procedures Surgical History Date Name Laterality Status Provider Name and Address Organization Details Recorded Time 08/21/19 24 Cerumen Removal completed JANY LONG [address] [place] [address], [address], [facility] 08/21/2023 15:18:01 04/19/20 18 Family Practice Trigger Point Injection completed Erik SalomonAvinash Perkins, DO [address], [place], [address], [facility] 04/19/2018 11:50:49 Imaging Results None recorded. Procedure Notes None recorded. Medical Equipment None Reported. Allergies Allergen ID Allergen Name Allergen Category Reaction Reaction Severity Criticality Documentation Date Start Date Code Code System Note Provider Name and Address Organization Details Recorded Time 08750 Product containin g penicilli n (product) medicatio n Not available Not available Not available 04/11/20252018 24266 8001 SNOMED Not Available elian - External Data Service - prod 16:13:48 728 penicilli n V Not available hives Not available Not available 08/08/2017 7984 RxNorm Leigh thomas [facility] 8 11:55:06 Medications Name [...] Not Available Novofine 32 32 gauge x /4 needle USE DIRECT TO INJECT INSULIN EVERY [...] completed Not Available Not Available Not Available B[employer]hun SoloStar U-300 Insulin 300 unit/mL (1.5 mL) [...] Tobacco Smoking Status Former Smoker Not Available [facility] 03/16/2020 03:36:24 What Was The Date Of Your Most Recent Tobacco Screening? 04/21/2025 [email or web address] Information not available 04/21/2025 Sex: Unknown Functional Status None recorded. Mental Status None recorded. Family History Nothing Reported. Medical History No medical history recorded. Immunizations Vaccine Type Date Status Note Provider Nam e and Address Organization Details Recorded Time Influenza, split virus, quadrivalent, preservative 9 completed Not Available [facility] 05/31/2019 02:46:30 COVID-19, mRNA, LNP-S, PF, 100 mcg/0.5mL dose or 50 mcg/0.25mL dose 1 completed [facility] 04/25/2022 11:16:53 COVID-19, mRNA, LNP-S, PF, 30 mcg/0.3 mL dose, timothy-sucrose 2 completed [facility] 04/25/2022 11:17:27 influenza, unspecified formulation 2 completed [facility] 04/25/2022 11:17:46 Influenza, split virus, quadrivalent, preservative 0 [facility] 04/12[facility] 08:10:10 COVID-19, mRNA, LNP-S, PF, 100 mcg/0.5mL dose or 50 mcg/0.25mL dose 1 completed [facility] 07/23/2020 14:52:18 COVID-19, mRNA, LNP-S, PF, 100 mcg/0.5mL dose or 50 mcg/0.25mL dose 1 completed Leigh Ruvalcaba [facility] 07/23/2020 14:52:26 Past Encounters Encounter ID Performer Location Encounter Start Date Encounter Closed Date Diagnosis/Indication Diagnosis SNOMED-CT Code Diagnosis ICD10 Code Diagnosis IMO Codes Diagnosis Note [id number] Erik Perkins [facility] [address],[place] [address] 03/03/2025 14:51:03 03/03/2025 15:02:36 Depression screening 061896098 Z13.31 negative Health Concerns Section Related Observation LastModified by Organization Detai ls LastModified Time None Recorded Concern Status LastModified by Organization Details LastModified Time None Recorded Payers Encounter Date Sequence Insurance Name Policy Number Policy Daly Covered Member ID Daly Member ID Guarantor Name 03/03/2025 1 MEDICARE B-UT: [facility] Ferny Mckeon [id number] Ferny Mckeon 03/03/2025 2 [facility]MEDICARE SUPPLEMENT) [id number] Ferny Mckeon [id number] Ferny Mckeon
--- OUTSIDE RECORDS SUMMARY | 2025-04-29 21:14 | XMS_ITS | Encounter Summary ---
Author Organization [facility] Address [address] [place] [address] Phone Care Team Providers Care Field Attendant Name Role Phone Erik Perkins DO Primary Care Provider [phone] Erik Perkins DO Unavailable Ander Cruz MD Unavailable [phone] Reason for Referral * MRI/CAT Scan - Closed Specialty Diagnoses / Procedures Referred By Pablo bob Referred To Contact Radiology Diagnoses Nonintractable headache, unspecified chronicity pattern, unspecified headache type Procedures CT Head Erik Perkins DO Phone: tel: fax: mailto:[email or web address] Referral ID Status Reason Start Date Expiration Date Visits Re quested Visits Authorized [id number] Closed 06/06/2023 1 1 Encounter Details Date Type Department Care Team ([facility] st Contact Info) Description 06/06/2023 Transcribe Orders Virtual Department [address] [place] [address] Erik Perkins DO [address] [place] [address] [place] [address] [email or web address] Nonintractable headache, unspecified chronicity pattern, unspecified headache [...] the left sphenoid sinussuggestive of chronic sinusitis. rEik Perkins DO [facility] CT HEAD/NECK Final Result documented in this encounter Visit Diagnoses Diagnosis Nonintractable headache, unspecified chronicity pattern, unspecified headache type- Primary Nonintractable headache, unspecified chronicity pattern, unspecified headache type documented in this encounter Care Teams Field Attendant Relationship Specialty Start Date End Date Erik Perkins DO PCP - General Internal Medicine 05/21/20 Erik Perkins DO [email or web address] Internal Medicine 05/21/20 Ander Cruz MD [address] [place] [id number] [email or web address] Hematology and Oncology 05/15/17 documented as of this encounter Additional Source Comments The information contained in this document represents components of the legal health record. It is not the complete legal health record.[facility]
--- OUTSIDE RECORDS SUMMARY | 2025-04-29 21:14 | XMS_ITS | Data Portability ---
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 Lab hemoglobin A1c, QN, blood 2024 025 [facility], [address] [place] [address], [address], 5 12:26:01 CMP, serum or plasma 2024 025 [facility], [address] [place] [address], [address], 5 12:26:01 CBC w/ auto diff 2024 025 [facility], [address] [place] [address], [address], 5 15:30:33 HbA1c (hemoglobi n A1c), blood 2024 025 [facility], [address] [place] [address], [address], 5 11:55:58 CMP, serum or plasma 2024 025 [facility], [address] [place] [address], [address], 5 14:01:39 CBC 2024 025 [facility], [address] [place] [address], [address], 5 11:55:58 microalbum in, urine 2024 025 [facility], [address] [place] [address], [address], 5 11:55:58 CBC w/ auto diff 2023 024 [facility], [address] [place] [address], [address], 4 13:52:52 CMP, serum or plasma 2023 [facility], [address] [place] [address], [place], [address], 4 13:52:52 TSH + free T4, serum 2023 [facility], [address] [place] [address], [place], [address], 4 13:52:52 T3, free, serum or plasma 2023 [facility], [address] [place] [address], [place], [address], 4 13:52:52 Referral gastroente rologist referral 2024 025 [facility], [address] [place] [address] [address] [place] [address], [place], [address], 5 08:27:21 Procedures None recorded. Surgeries None recorded. Imaging CT, chest, w/o contrast 2024 025 [facility], [address] [place] [address], [address], 5 08:27:03 Medication Orders atorvastat in 80 mg tablet 2023 024 [facility] #16356, [address] [place], [place], [id number], 4 13:45:22 metformin 500 mg tablet 2023 024 [facility] #38229, [address] [place], [place], [id number], 4 13:46:04 levetirace raymond 500 mg tablet 2023 024 [facility] #38709, [address] [place], [place], [id number], 4 13:45:24 tamsulosin 0.4 mg capsule 2023 024 [facility] #68193, [address] [place], [place], [id number], 4 13:45:27 amlodipine 10 mg tablet 2023 024 [facility] #29196, [address] [place], [place], [id number], 4 13:45:28 lisinopril 10 mg tablet 2023 024 [facility] #09589, [address] [place], [place], [id number], 4 13:46:48 mirtazapin e 15 mg tablet 2023 024 [facility] #08378, [address] [place], [place], [id number], 4 13:45:22 omeprazole 20 mg capsule,de layed release 2023 [facility] #62369, [address] [place], [place], [id number], 4 13:45:26 Patient TargetsNo targets recorded. 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 [address] (Medical Records) [address] [facility] [place], [address], 10/22/2023 13:44:41 10/22/19 24 10/19/2023 XR, chest , w/ fluor oscop y No observ ation record ed. [address] (Medical Records) [address] [facility] [place], [address], 10/22/2023 13:45:12 12/01/19 25 11/30/2024 CT, abdom en + pelvi s, w/ contr ast No observ ation record ed. [address] (Medical Records) [address] [facility] [place], [address], 12/01/2024 08:34:44 12/02/1911/30/2024 US, abdom en, limit ed No observ ation record ed. [address] (Medical Records) [address] [place], [address], 12/01/2024 08:35:26 12/06/19 25 12/04/2024 CT, angio gram, head + neck, w/wo contr ast No observ ation record ed. [email or web address] [place] [address] (Medical Records) [address] [place], [address], 12/05/2024 09:07:47 12/06/19 25 12/04/2024 XR, humer us No observ ation record ed. [facility] (Medical Records) [address] [place], [address], 12/05/2024 09:09:36 12/06/19 25 12/04/2024 XR, shoul lyn No observ ation record ed. [facility] (Medical Records) [address] [place], [address], 12/05/2024 09:23:06 12/06/1912/04/2024 XR, shoul lyn No observ ation record ed. [email or web address] [facility] (Medical Records) [address] [place], [address], 12/05/2024 09:09:51 01/24/2001/23/2025 CT, head + brain , w/o contr ast No observ ation record ed. [email or web address] [facility] (Medical Records) [address] [place], [address], 01/23/2025 09:00:43 01/24/2001/23/2025 CT, chest , w/o contr ast No observ ation record ed. [email or web address] (Medical Records) [address] [place], [address], 01/23/2025 09:00:53 01/24/2001/23/2025 CT, cervi michelle spine , w/o contr ast No observ ation record ed. [email or web address] [facility] (Medical Records) [address] [place], [address], 01/23/2025 09:01:06 Result Notes None recorded. Problems Name Problem SNOMED Code Status Onset Date Resolution Date Notes Provider Name and Address Organization Details Recorded Time Type 2 diabetes mellitus 16157790 Active 2017 Not Available [facility] 3 11:56:21 Diverticu lar disease 279815283 Active 2017 Not Available [facility] 3 11:56:21 Migraine without aura 62495983 Active 2017 Not Available [facility] 3 11:56:21 Essential hypertens ion 32935845 Active 2017 Not Available [facility] 3 11:56:21 Squamous cell carcinoma of skin 746295320 Active 2017 face Not Available [facility] 3 11:56:21 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 48623121 Active 2017 Not Available [facility] 3 11:56:21 Post-lami nectomy syndrome 30647005 Active 2017 Not Available [facility] 3 11:56:21 Myofascia l pain syndrome 235321982 Active 2017 Not Available [facility] 3 11:56:21 Radicular pain 42797271 Active 2017 lumbar Not Available [facility] 3 11:56:21 Obstructi ve sleep apnea syndrome 00899804 Active 2017 on CPAP Not Available [facility] 3 11:56:22 Hyperchol esterolem ia 24145396 Active 2017 Not Available [facility] 3 11:56:21 Cervico-o ccipital neuralgia 26367564 Active 2017 Not Available [facility] 3 11:56:21 Chronic atrial fibrillat ion 197201446 Active 2019 Not Available [facility] 3 11:56:21 Therapeut ic opioid induced constipat ion 04664436107 9102 Active 2019 Not Available [facility] 3 11:56:21 Atrial fibrillat ion 84623191 Active 2021 Not Available [facility] 3 11:56:21 Acquired right hallux valgus 11322072222 4106 Active 2021 Not Available [facility] 3 11:56:21 Chronic pain 77897898 Active 2021 Not Available [facility] 3 11:56:22 Diabetic foot ulcer 682805608 Active 2021 Not Available [facility] 3 11:56:21 Actinic keratosis 388472518 Active 2022 Not Available [facility] 3 11:56:21 Intractab le nausea and vomiting 930213494 Active 2022 Erik Perkins, DO [address] [facility], [place], [address], [facility] 3 14:26:39 Diffuse spasm of esophagus 92050280 Active 2023 Erik Perkins, DO [address] [place] [address], [address], [facility] 4 13:57:14 Headache 06771040 Active 2023 Erik Perkins, DO [address] [place] [address], [address], [facility] 4 14:01:14 Impacted cerumen of bilateral ears 12628602877 03676 Active 2023 JANY LONG [address] [place] [address], [address], [facility] 4 15:18:08 Cerebrova scular accident 051509426 Active 2023 JANY LONG [address] [place] [address], [address], [facility] 4 13:37:07 Cholecyst itis 82369400 Active 2023 JANY LONG [address] [place] [address], [address], [facility] 4 13:39:08 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 830861710 Active 2023 JANY LONG [address] [place] [address], [address], [facility] 4 13:40:30 Depressiv e disorder 08519697 Active 2023 JANY LONG [address] [place] [address], [address], [facility] 4 13:41:00 Seizure disorder 031475962 Active 2023 JANY LONG [address] [place] [address], [address], [facility] 4 13:42:42 Subclinic al hyperthyr oidism 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 Active 2023 JANY LONG [address] [place] [address], [address], [facility] 4 13:50:37 Chronic constipat ion 425189996 Active 2024 JANY LONG [address] [place], [address], [facility] 5 13:11:49 Biliary sludge 74598930 Active 2024 JANY LONG [address] [place] [address], [address], [facility] 5 13:12:05 Common bile duct calculus 146096818 Active 2024 JANY LONG [address] [place] [address], [address], [facility] 5 13:12:19 Nodule of lung 102991625 Active 2024 JANY LONG [address] [place] [address], [address], [facility] 5 13:12:59 Retention of urine 094973934 Active 2024 JANY LONG [address] [place] [address], [address], [facility] 5 15:42:01 Recurrent urinary tract infection 330440968 Active 2024 JANY LONG [address] [place] [address], [address], [facility] 5 09:02:20 Complicat ion of urinary catheter 077654081 Active 2024 JANY LONG [address] [place] [address], [address], [facility] 5 09:02:41 Recurrent falls 350178202 Active 2024 JANY LONG [address] [place] [address], [address], [facility] 5 09:02:57 Spasm 23810445 Active 2024 Erik Perkins DO [address] [place], [address], [facility] 5 13:48:01 Problem Notes None recorded. Procedures Surgical History Date Name Laterality Status Provider Name and Address Organization Details Recorded Time 08/21/19 24 Cerumen Removal completed JANY LONG [address] [place], [address], [facility] 08/21/2023 15:18:01 04/19/20 18 Family Practice Trigger Point Injection completed Erik Perkins, DO [address] [place], [address], [facility] 04/19/2018 11:50:49 Imaging Results None recorded. Procedure Notes None recorded. Medical Equipment None Reported. Allergies Allergen ID Allergen Name Allergen Category Reaction Reaction Severity Criticality Documentation Date Start Date Code Code System Note Provider Name and Address Organization Details Recorded Time 74630 Product containin g penicilli n (product) medicatio n Not available Not available Not available 04/11/20252018 37195 8001 SNOMED Not Available elian - External Data Service - prod 5 16:13:48 728 penicilli n V Not available hives Not available Not available 08/08/2017 7984 RxNorm Leigh Ruvalcaba [facility] 8 11:55:06 Medications Name Sig Start Date [...] Not Available Not Available Not Available Javier RinconPen U-100 Insulin 100 unit/mL (3 mL) subcutaneou s INJECT 30 UNITS UNDER THE SKIN ONCE DAILY active Not Available Not Available No t Available Fluzone High-Dose Quad (PF) 240 mcg/0.7 mL IM syringe PHARMACY ADMINISTE RED 06/14 completed Not Available Not Available Not Available Vitals Date Recorded Body height Heart rate Oxygen saturation Body mass index (BMI) Body weight Systolic And Diastolic Provider Name and Address Organization Details Last Updated DateTime 4 160.02 cm 108 /min 97 % 25.7 kg/m2 23694.8 9 g 150/82 mm[Hg] Noé Galvan [facility] 4 13:28:57 Date Recorded Body height Heart rate Oxygen saturation Systolic And Diastolic Provider Name and Address Organization Details Last Updated DateTime 12/15/2024 160.02 cm 74 /min 97 % 124/78 mm[Hg] Lacy Mckeon [facility] 12/15/2024 15:09:24 Date Recorded Oxygen saturation Provider Name and Address Organization Details Last Updated DateTime 04/21/2025 90 % Martine Sytles O [address] [place], [address], [facility] 04/21/2025 15:29:13 Date Recorded Body height Body mass index (BMI) Body weight Heart rate Systolic And Diastolic Provider Name and Address Organization Details Last Updated DateTime 04/21/2025 160.02 cm 21.4 kg/m2 92082.68 g 98 /min 126/64 mm[Hg] NAHEED BRAR [facility] Internal [facility] 04/21/2025 15:11:00 Social History Question Answer Notes LastModified by Organizat ion Details LastModified Time Tobacco Smoking Status Former Smoker Not Available [facility] 03/16/2020 03:36:24 What Was The Date Of Your Most Recent Tobacco Screening? 04/21/2025 [email or web address] Information not available 04/21/2025 Sex: Unknown Functional Status None recorded. Mental Status None recorded. Family History Nothing Reported. Medical History No medical history recorded. Immunizations Vaccine Type Date Status Note Provider Nam e and Address Organization Details Recorded Time Influenza, split virus, quadrivalent, preservative 9 completed Not Available [facility] 05/31/2019 02:46:30 COVID-19, mRNA, LNP-S, PF, 100 mcg/0.5mL dose or 50 mcg/0.25mL dose 1 completed Oma thomas [facility] 04/25/2022 11:16:53 COVID-19, mRNA, LNP-S, PF, 30 mcg/0.3 mL dose, timothy-sucrose 2 completed Oma Montano mar[facility] 04/25/2022 11:17:27 influenza, unspecified formulation 2 completed Oma Montano martha [facility] 04/25/2022 11:17:46 Influenza, split virus, quadrivalent, preservative 0 completed [facility] 04/12/2020 08:10:10 COVID-19, mRNA, LNP-S, PF, 100 mcg/0.5mL dose or 50 mcg/0.25mL dose 1 completed Leigh Ruvalcaba martha [facility] 07/23/2020 14:52:18 COVID-19, mRNA, LNP-S, PF, 100 mcg/0.5mL dose or 50 mcg/0.25mL dose 1 completed Leigh Ruvalcaba [facility] 07/23/2020 14:52:26 Past Encounters Encounter ID Performer Location Encounter Start Date Encounter Closed Date Diagnosis/Indication Diagnosis SNOMED-CT Code Diagnosis ICD10 Code Diagnosis IMO Codes Diagnosis Note [id number] [facility] [address] [facility] [address] 11/26/2017 12:11:50 11/26/2017 14:53:25 Degeneration of lumbar intervertebral disc 74603330 M51.36 baseline no change this is the one major problem in his life fentanyl not as effective as in past Type 2 be betes mellitus 11263877 E11.9 here for recheck jayjay williamson will need to cut back by 5 units to 25 u qhs will follow and cont to decrease insulin as noted Essential hypertension 31101515 I10 [place] [id number] [facility] [address] [facility],[place] [address] 04/15/2018 13:28:48 04/15/2018 15:01:45 Type 2 diabetes mellitus 55254930 E11.9 a1c is 5.4 again and he is still doing great after cutting down dose last visit Essential hypertension 89974372 I10 overall stable saloni w bp Cervico-oc cipital neuralgia 31553902 M54.81 will arrange to get a cortisone inject trigger [id number] [facility] [address] [facility] [address],[place] [address] 04/19/2018 11:19:59 04/22/2018 11:19:25 Cervico-occipital neuralgia 33397800 M54.81 cortisone inject trigger point Degenerati on of lumbar intervertebral disc 17761511 M51.36 baseline no change this is the one major problem in his life fentanyl not as effective as in past [id number] [facility] [address] [facility] [address],[place] [address] 07/24/2018 14:07:08 07/24/2018 14:38:11 Essential hypertension 42979891 I10 overall stable saloni w bp and will cont current med Type 2 be betes mellitus 45523271 E11.9 a1c is 6.1 again and he is still doing great after cutting down dose last visit was 5.4 [id number] Erik Perkins DO [facility] [address] [facility] [address],[place] [address] 12/11/2018 15:47:06 12/11/2018 16:44:55 Type 2 diabetes mellitus 37125519 E11.9 a1c is 6.3 which is amazing given the length of time he is not taking care of himself relates not following diet will have him cont to follow as needed and rechk 3 mo Essential hypertension 30602188 I10 overall stable saloni w bp and will cont current med Degenerati on of lumbar intervertebral disc 89650165 M51.36 baseline no change this is the one major problem in his life fentanyl not as effective as in past Hypercholesterolemia 136 01141 E78.00 will need rechk [id number] [facility] [address] [facility] [address],[place] [address] 03/05/2019 14:22:42 03/05/2019 15:13:47 Essential hypertension 94576952 I10 overall stable saloni w bp and will cont current med Type 2 be betes mellitus 42794708 E11.9 a1c is 6.9 was 6.3 and he admits to not taking care feels he is lonesome relates not following diet will have him cont to follow as needed and rechk 3 mo Depressive disorder 3548 9007 F32.9 Administra tion of influenza vaccine 03189747 Z23 [id number] Erik Perkins DO [facility] [address] [facility],[place] [address] 07/21/2019 14:06:12 07/21/2019 14:31:50 Type 2 diabetes mellitus 25550251 E11.9 a1c is 6.9 was 6.9 was 6.3 and he admits to not taking care he still feels he is lonesome relates not following diet will have him cont to follow as needed and rechk 3 mo he did overtake his cannabis the other month and he needed to be eval in the ER was released without incident Essential hypertension 47987815 I10 overall stable saloni w bp and will cont current med Active or passive immunization 685401810 Z23 Chronic at rial fibrillation 298982304 I48.20 seems controlled with addition of xarelto Therapeuti c opioid induced constipation 9830908308 99899 T40.2X5A [id number] Erik Perkins DO [facility] [address] [facility],[place] [address] 11/18/2019 15:38:10 11/18/2019 16:14:38 Essential hypertension 94207418 I10 overall stable saloni w bp and will cont current med Type 2 be betes mellitus 06358790 E11.9 a1c is 6.6 and was 6.9 [...] incident Degenerati on of lumbar intervertebral disc 83218193 M51.36 baseline no change this is the one major problem in his life but feels he may be even worse fentanyl not as effective as in past Chronic at rial fibrillation 836224447 I48.20 seems controlled with addition of xarelto Tendinitis of left hand 2310766313 2788737 M67.844 fairly prominent swelling and is quite painful [id number] Erik Perkins DO [facility] [address] [facility],[place] [address] 03/17/2020 15:44:31 03/17/2020 16:15:14 Type 2 diabetes mellitus 94442473 E11.9 a1c is6.6.6 and previous was 6.6 [...] ER was released without incident Essential hypertension 77312328 I10 overall stable saloni w bp and will cont current med Chronic at rial fibrillation 197589525 I48.20 seems controlled with addition of xarelto Infection of tooth 96448 8007 K04.7 will tx and see if we can calm it down [id number] Erik Perkins, [facility] [address] [facility],[place] [address] 07/23/2020 14:41:09 07/23/2020 15:13:41 Chronic atrial fibrillation 570667125 I48.20 seems controlled with addition of xarelto Essential hypertension 69851857 I10 overall stable saloni w bp and will cont current med Type 2 be betes mellitus 92099517 E11.9 a1c is 6.9 and was 6.6 [...] this Trigger fi nger of left hand 0693377938 7122783 M65.30 4th finger and others very painful and he will fet back to me when ready to see dr saldaña [id number] [facility] [address] [facility] [address] [employer] [place] [address] 12/07/2020 13:33:14 12/07/2020 14:01:26 Type 2 diabetes mellitus 18516285 E11.9 a1c is 6.8 and before was 6.9 and was 6.6 and previous was 6.6 and was 6.9 was 6.9 was 6.3 and he admits to not taking care he still feels he is lonesome relates not always following diet will have him cont to follow as needed and rechk 3 mo he cont to take his cannabis without incident sometimes [id number] is stable Essential hypertension 93069099 I10 overall stable saloni w bp and will cont current med Chronic at rial fibrillation 816418361 I48.20 seems controlled with addition of xarelto Atypical chest pain 1025 77125 R07.89 im not sure what this is there is no pattern it is not reproducib le, lasts less than a second and had stopped since that one day . [id number] [facility] [address] [facility] [address] 01/21/2021 14:10:36 01/21/2021 15:05:16 Chronic atrial fibrillation 901466150 I48.20 seems controlled with addition of xarelto Essential hypertension 39394556 I10 overall stable saloni w bp and will cont current med [id number] [facility] [address] [facility],[place] [address] 04/29/2021 08:37:32 04/29/2021 15:34:00 Chronic atrial fibrillation 356879811 I48.20 seems controlled with addition of xarelto no prob with med Degenerati on of lumbar intervertebral disc 71783933 M51.36 baseline no change this is the one major problem in his life but feels he may be even worse fentanyl not as effective as in past back is slowly progressin g making him less mobile Essential hypertension 00370917 I10 overall stable saloni w bp and will cont current med Type 2 be betes mellitus 95395528 E11.9 a1c is now 7.1 was 6.8 [...] to take his cannabis without incident sometimes [id number] is stable at 7.[id number] [facility] [address] [facility],[place] [address] 08/03/2021 13:48:55 08/05/2021 10:43:56 Hypercholesterolemia 38225730 E78.00 will need rechk Type 2 be betes mellitus 66499312 E11.9 a1c is now 6.8 he was [...] to take his cannabis without incident sometimes [id number] is stable at 7.1 Essential hypertension 89775898 I10 overall stable saloni w bp and will cont current med Chronic at rial fibrillation 117707431 I48.20 seems controlled with addition of xarelto [place] [id number] [facility] [address] [facility],[place] [address] 12/14/2021 16:24:00 12/14/2021 16:50:44 Hypercholesterolemia 01617741 E78.00 will need rechk Type 2 be betes mellitus 64327244 E11.9 a1c is now 6.7 and prior [...] to take his cannabis without incident sometimes rgvbjikz8e is stable at 7.1 Essential hypertension 85458219 I10 overall stable saloni w bp and will cont current med Chronic at rial fibrillation 315511139 I48.20 seems controlled with addition of xarelto no prob with med Atrial fibrillation 4943 6004 I48.91 stable no issues Active or passive immunization 581084106 Z23 Acquired r ight hallux valgus [id number] 27651 M20.11 [id number] Erik Perkins, [facility] [address] [facility],[place] [address] 04/26/2022 14:36:22 04/26/2022 15:37:00 Chronic atrial fibrillation 180778731 I48.20 seems controlled with addition of xarelto no prob with med Hypercholesterolemia 136 42250 E78.00 will need rechk Type 2 be betes mellitus 20769007 E11.9 a1c is now at 6.3 6.7 and prior was 6.8 he was 7.1 relates not always following diet will have him cont to follow as needed and rechk 3 mo he cont to take his cannabis without incident sometimes pnfasbbp4c is stable at 7.1 Essential hypertension 96843995 I10 overall stable saloni w bp and will cont current med Diabetic foot ulcer 3710 76547 E13.621 we will use xerform dressing on woummd for now and have ordered a collagen silver dressing for him [address] [facility] [address] [facility],[place] [address] 07/26/2022 14:27:33 07/26/2022 17:06:24 Chronic atrial fibrillation 660485666 I48.20 seems controlled with addition of xarelto no prob with med Type 2 be betes mellitus 82009088 E11.9 a1c is now at 6.3 again was 6.3 and prior was 6.7 and prior was 6.8 he was 7.1 relates not always following diet will have him cont to follow as needed and rechk 3 mo he cont to take his cannabis without incident sometimes oukesipt2c is stable at 7.1 Essential hypertension 74410833 I10 overall stable saloni w bp and will cont current med Obstructiv e sleep apnea syndrome 16314875 G47.33 stable sleeps well Diabetic foot ulcer 3710 84579 E13.621 L97.409 getting better every weekwe will use xerform dressing on wound for now and have ordered a collagen silver dressing for him Advance care planning 71 6552296 Z71.89 utd Degenerati on of lumbar intervertebral disc 12636399 M51.36 baseline no change this is the one major problem in his life but feels he may be even worse fentanyl not as effective as in past back is slowly progressin g making him less mobile [address] [facility] [address] [facility],[place] [facility] [address] 11/29/2022 15:48:05 12/01/2022 13:55:15 Chronic atrial fibrillation 980373177 I48.20 seems controlled with addition of xarelto no prob with med Degenerati on of lumbar intervertebral disc 63214295 M51.36 baseline no change this is the one major problem in his life but feels he may be even worse fentanyl not as effective as in past back is slowly progressin g making him less mobile Essential hypertension 69920667 I10 overall stable saloni w bp and will cont current med Type 2 be betes mellitus 97619679 E11.9 a1c is now at 6.1 he was 6.3 again was 6.3 and prior was 6.7 and prior was 6.8 he was 7.1 relates not always following diet will have him cont to follow as needed and rechk 3 mo he cont to take his cannabis without incident sometimes ibcgevxv2t is stable at 7.[id number] [facility] [address] [facility],[place] [address] 12/26/2022 11:08:34 12/26/2022 11:59:40 Atrial fibrillation 68775279 I48.0 stable Essential hypertension 69260413 I10 BP is okay Type 2 be betes mellitus 23227801 E11.9 stable Actinic keratosis 491778 007 L57.0 send out referral Squamous c ell carcinoma of skin 585222695 C44.329 will set up with derm [id number] Erik Perkins [facility] [address] [facility],[place] [address] 05/11/2023 08:25:32 05/11/2023 15:47:22 Essential hypertension 18772890 I10 overall stable saloni w bp and will cont current med Type 2 be betes mellitus 35604397 E11.9 a1c is now at 6.1 he was 6.3 again was 6.3 and prior was 6.7 and prior was 6.8 he was 7.1 relates not always following diet will have him cont to follow as needed and rechk 3 mo he cont to take his cannabis without incident sometimes fjvpuwtp2f is stable at 7.1 Intractabl e nausea and vomiting 729027204 R11.2 474003 [facility] [address] [place] [address] 06/05/2023 12:23:31 06/05/2023 14:06:18 Type 2 diabetes mellitus 24535763 E11.9 a1c is now at 6.1 he was 6.3 again was 6.3 and prior was 6.7 and prior was 6.8 he was 7.1 relates not always following diet will have him cont to follow as needed and rechk 3 mo he cont to take his cannabis without incident sometimes kuqmoywt7b is stable at 7.1 Essential hypertension 65432950 I10 overall stable saloni w bp and will cont current med Diffuse sp asm of esophagus 15993976 K22.4 will need GI consult if amodipine not helping Headache 53287910 R51.9 pt has been having daily headaches [id number] [facility] [address] [facility],[place] [address] 08/21/2023 11:00:02 08/21/2023 11:28:02 Impacted cerumen of bilateral ears 0849446033 295215 H61.23 resolved [id number] [facility] [address] [place] [address] 11/19/2023 13:20:45 11/19/2023 14:01:23 Depression screening 961942566 Z13.31 negative 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 currently now on eliquisref ills all set, no xarelto Atrial fibrillation 4943 6004 I48.0 stable Essential hypertension 35199303 I10 BP is okay Type 2 be betes mellitus 47090837 E11.9 stable Squamous c ell carcinoma of skin 762700588 C44.329 will set up with derm Cholecystitis 96253128 K 80.00 has to still f/u with gen surg Benign pro static hyperplasia with outflow obstruction 741997405 N40.1 start per hospital Depressive disorder 3548 9007 F32.0 cont Diffuse sp asm of esophagus 83858590 K22.4 cont Seizure disorder 0960016 02 G40.309 cont 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 [address] [facility],[place] [address] 08/11/2024 08:31:52 08/11/2024 12:07:55 Atrial fibrillation 84853381 I48.0 stable no issues Degenerati on of lumbar intervertebral disc 25668831 M51.369 Depression screening 171 272085 Z13.31 neg Essential hypertension 88657180 I10 overall stable saloni w bp and will cont current med Hypercholesterolemia 136 80092 E78.00 not having drawn anymore at 84 yrs Type 2 be betes mellitus 86926311 E11.9 a1c is now at 6.1 he was 6.3 again was 6.3 and prior was 6.7 and prior was 6.8 he was 7.1 relates not always following diet will have him cont to follow as needed and rechk 3 mo he cont to take his cannabis without incident sometimes zthzyvdj7a is stable at 7.[id number] [facility] [address] [facility], [place] [address] 12/15/2024 14:51:36 12/15/2024 16:06:08 Chronic constipation 974271944 K59.09 523214 continue Biliary sludge 28235224 K83.8 79689290 will set up with gastro for re eval Common cuauhtemoc e duct calculus 919540304 K80.50 9502 fu with GI Nodule of lung 618041398 R91.1 913188 will fu with repeat CT to monitor nodule Retention of urine 99525 4002 R33.9 47170 has urology f/u [id number] Erik Perkins [facility] [address] [facility] [address] 03/03/2025 14:51:03 03/03/2025 15:02:36 Depression screening 747706308 Z13.[id number] [facility] [address] [facility] [place] [place] [address] 04/21/2025 14:55:37 04/21/2025 15:47:41 Depression screening 011076620 Z13.31 neg Essential hypertension 99850039 I10 overall stable saloni w bp and will cont current med Atrial fibrillation 4943 6004 I48.0 stable no issues Type 2 be betes mellitus 39357251 E11.9 a1c is pending no rece nt lab now at 6.1 he was 6.3 again was 6.3 and prior was 6.7 and prior was 6.8 he was 7.1 relates not always following diet will have him cont to follow as needed and rechk 3 mo he cont to take his cannabis without incident sometimes kpbvsseg2o is stable at 7.1 Health Concerns Section Related Observation LastModified by Organization Detai ls LastModified Time None Recorded Concern Status LastModified by Organization Details LastModified Time None Recorded Advance Directives Directive None Recorded Payers Insurance Date Sequence Insurance Name Policy Number Policy Daly Covered Member ID Daly Member ID Guarantor Name 04/18/2025 1 [place] [employer] Ferny Mckeon [id number] Ferny Mckeon 04/18/2025 2 [place] [id number] Ferny Mckeon [id number] Ferny Mckeon Notes Date Note Type Note Provider Name and Address Organization Details Recorded Time 024 text/ht ml ROS as noted in the [facility] hospital f/u the patient was d/c [...] using the fentanyl patches JANY LONG [address] [facility], [place], [address], [facility] 11/19/2023 13:53:28 025 [...] andno rapid heart rate. Back PainReported by PatientIFor location, patient reportspain is not radiating. For severity, patient reportsimproving. For associated symptoms, patient reportsno fever,no weak limbs,no numbness of the legs/feet,no tingling,no incontinence,no shortness of breath,no unintentional weight loss,no chills,no night sweats,no gait instability,no bowel/bladder symptoms, andno recent increase in stress. For previous injury, patient reportsno prior injury to backandno prior malignancy. Care Management - HyperlipidemiaReported by PatientIFor control, patient reportsusually well controlled,improving, andat goal. [...] to be on his usual medications Erik Perkins DO [address] [facility], [place], [address], [facility] 08/11/2024 12:01:17 025 text/ht ml ROS as noted in the [facility] hospital f/u, TCM 14 patient presented [...] having regular bowel movement JANY LONG [address] [facility], [place], [address], [facility] 12/15/2024 15:43:36
--- OUTSIDE RECORDS SUMMARY | 2025-04-29 21:14 | XMS_ITS | Encounter Summary ---
Author Organization [facility] Address [address] [place] [address] [place] [address] Phone Care Team Providers Care Die Welder Name Role Phone Erik Perkins Primary Care Provider [phone] Gregorio Erki Salomon DO Unavailable Ander Cruz MD Unavailable [phone] Encounter Details Date Type Department Care Team (Late st Contact Info) Description 06/06/2023 Procedure Pass [facility], Ct Scan - [facility] [address] [place] [address] Social History Tobacco Use Types Packs/Day Years [...] on filedocumented in this encounter Care Teams Die Welder Relationship Specialty Start Date End Date Erik Perkins DO [email or web address] PCP - General Internal Medicine 05/21/20 Erik Perkins DO [email or web address] Internal Medicine 05/21/20 Ander Cruz MD [address] [place] [address] [email or web address] Hematology and Oncology 05/15/17 documented as of this encounter Additional Source Comments The information contained in this document represents components of the legal health record. It is not the complete legal health record.[facility]
--- OUTSIDE RECORDS SUMMARY | 2025-04-29 21:14 | XMS_ITS | Encounter Summary ---
Author Organization [facility] Address [address] [place] [address] Phone Care Team Providers Care Supervisor Extruding Department Name Role Phone Erik Perkins DO Primary Care Provider [phone] Erik Perkins DO Unavailable Kathleen Figueroa MD Unavailable [phone] eJffry Bowman MD Unavailable [phone] Ander Cruz MD Unavailable [phone] Encounter Details Date Type Department Care Team (Late st Contact Info) Description 08/17/2020 Transcribe Orders [facility] [address] [place] [address] Erik Perkins DO [address] [facility] [address] [place], [place] [id number] Social History Tobacco Use Types Packs/Day Years [...] on filedocumented in this encounter Care Teams Supervisor Extruding Department Relationship Specialty Start Date End Date Erik Perkins DO PCP - General Internal Medicine 05/21/20 Erik Perkins DO Internal Medicine 05/21/20 Kathleen Figueroa MD [address] [place] [address] Orthopedics Sports [facility], [place], [place] [id number] Historical LMR Provider 02/26/17 eJffry Bowman MD [address] [place] [address], [place], [place] [id number] Historical LMR Provider 02/26/17 2 Ander Cruz MD [address] [place] [address] Hematology and Oncology 05/15/17 documented as of this encounter Additional Source Comments The information contained in this document represents components of the legal health record. It is not the complete legal health record.[facility]
--- OUTSIDE RECORDS SUMMARY | 2025-04-29 21:14 | XMS_ITS | Encounter Summary ---
Author Organization [facility] Address [address] [facility] [address] [place] [address] Phone Care Team Providers Care Plant Protection Superintendent Name Role Phone Erik Perkins DO Primary Care Provider [phone] Suzyyunior Erik Salomon DO Unavailable Ander Cruz MD Unavailable [phone] Encounter Details Date Type Department Care Team (Late st Contact Info) Description 10/25/2023 Procedure Pass [place] Admitting Dept - Virtual Department [address] [place] [address] Social History Tobacco Use Types Packs/Day Years [...] on filedocumented in this encounter Care Teams Plant Protection Superintendent Relationship Specialty Start Date End Date Erik Perkins DO [email or web address] PCP - General Internal Medicine 05/21/20 Erik Perkins DO Internal Medicine 05/21/20 Ander Cruz MD [address] [place] [address] Hematology and Oncology 05/15/17 documented as of this encounter Additional Source Comments The information contained in this document represents components of the legal health record. It is not the complete legal health record.[facility]
--- OUTSIDE RECORDS SUMMARY | 2025-04-29 21:14 | XMS_ITS | Encounter Summary ---
Author Organization [facility] Address [address] [facility] [address] [place] [address] Phone Care Team Providers Care Plating And Point Assembly Supervisor Name Role Phone Erik Perkins DO Primary Care Provider [phone] Erik Perkins DO Unavailable Kathleen Figueroa MD Unavailable [phone] Jeffry Bowman MD Unavailable [phone] Ander Cruz MD Unavailable [phone] Encounter Details Date Type Department Care Team (Late st Contact Info) Description 07/29/2020 Transcribe Orders Virtual Department [address] [place] [address] Erik Perkins DO [address] [facility] [place] [address] [place] [address] [email or web address] Dyspnea on exertion (Primary Dx) Social History [...] Volumes, DLCO, Spirometry with bronchodilator; Performing Location: [facility] (09/14/2020 5:13 PM EDT) FEV1 [...] abnormality documented in this encounter Care Teams Plating And Point Assembly Supervisor Relationship Specialty Start Date End Date Erik Perkins DO PCP - General Internal Medicine 05/21/20 Erik Perkins DO Internal Medicine 05/21/20 Kathleen Figueroa MD [address] [place] [address] Orthopedics & Sports [facility], [facility] [place] [address] Historical LMR Provider 02/26/17 Jeffry Bowman MD [address] [facility] Orthopedics Sports [facility], [place], [place] [phone] Historical LMR Provider 02/26/17 2 Ander Cruz MD [address] [place] [address] [email or web address] Hematology and Oncology 05/15/17 documented as of this encounter Additional Source Comments The information contained in this document represents components of the legal health record. It is not the complete legal health record.[facility]
--- OUTSIDE RECORDS SUMMARY | 2025-04-29 21:15 | XMS_ITS | Encounter Summary ---
Author Organization [facility] Address [address] [facility] [address] [place] [address] Phone Care Team Providers Care Webfocus Developer Name Role Phone Erik Perkins DO Primary Care Provider [phone] SuzyErik mojica DO Unavailable Ander Cruz MD Unavailable [phone] Encounter Details Date Type Department Care Team (Late st Contact Info) Description 09/23/2023 Procedure Pass [facility] [place], Ct Scan - [facility] [address] [place] [address] Social History Tobacco Use Types Packs/Day Years [...] 2:57 PM EDT Soledad Quiñonez, DERICK * Ray Suicide Severity Rating Scale (Screener/Recent Self-Report) Question [...] on filedocumented in this encounter Care Teams Webfocus Developer Relationship Specialty Start Date End Date Erik Perkins DO PCP - General Internal Medicine 05/21/20 Erik Perkins DO Internal Medicine 05/21/20 Ander Cruz MD [address] [place] [id number] [email or web address] Hematology and Oncology 05/15/17 documented as of this encounter Additional Source Comments The information contained in this document represents components of the legal health record. It is not the complete legal health record.[facility]
--- OUTSIDE RECORDS SUMMARY | 2025-04-29 21:15 | XMS_ITS | Continuity of Care Document ---
Author Organization [place] - [facility], [facility] Address [address] [place] [address] [place] [address] Assessment Encounter Date Assessment Date Assessment LastModified by Organization Details LastModified Time 04/21/2025 04/21/2025 [address] [place] [address] (SURGICAL INSTRUMENT MAKER) MDM MODERATE MUST MEET 2 OUT OF [...] Lab hemoglobin A1c, QN, blood 2024 025 [facility], [address] [place] [address], [id number], 12:26:01 CMP, serum or plasma 2024 025 [facility], [address] [place] [address], [id number], 5 12:26:01 CBC w/ auto diff 2024 025 [facility], [address] [place] [address], [id number], 5 15:30:33 Referral None recorded. Procedures None recorded. Surgeries None recorded. Imaging None recorded. Medication Orders None recorded. Patient TargetsNo targets recorded. Patient Instructions Encounter Date Encounter Id Patient Instructions Last Modified By Organization Details Last Modified Time 04/21/2025 [id number] pulse oximetry* ELIAN Not available 04/21/2025 15:36:02 Reason for Referral None Reported. Results Created Date Observation Date Name Description Value Unit Range Abnormal Flag Note LastModifiedBy Organization Detail LastModifiedTime Result Notes None recorded. Problems Name Problem SNOMED Code Status Onset Date Resolution Date Notes Provider Name and Address Organization Details Recorded Time Type 2 diabetes mellitus 25004756 Active 2017 Not Available [facility] 3 11:56:21 Diverticu lar disease 055247597 Active 2017 Not Available [facility] 3 11:56:21 Migraine without aura 76701422 Active 2017 Not Available [facility] 3 11:56:21 Essential hypertens ion 90399181 Active 2017 Not Available [facility] 3 11:56:21 Squamous cell carcinoma of skin 713176844 Active 2017 face Not Available [facility] 3 11:56:21 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 81458259 Active 2017 Not Available [facility] 3 11:56:21 Post-lami nectomy syndrome 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 Active 2017 Not Available [facility] 3 11:56:21 Myofascia l pain syndrome 784389156 Active 2017 Not Available [facility] 3 11:56:21 Radicular pain 12520216 Active 2017 lumbar Not Available [facility] 3 11:56:21 Obstructi ve sleep apnea syndrome 83446162 Active 2017 on CPAP Not Available [facility] 3 11:56:22 Hyperchol esterolem ia 75832362 Active 2017 Not Available [facility] 3 11:56:21 Cervico-o ccipital neuralgia 37270479 Active 2017 Not Available [facility] 3 11:56:21 Chronic atrial fibrillat ion 211383069 Active 2019 Not Available [facility] 3 11:56:21 Therapeut ic opioid induced constipat ion 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 Active 2019 Not Available [facility] 3 11:56:21 Atrial fibrillat ion 14365995 Active 2021 Not Available [facility] 3 11:56:21 Acquired right hallux valgus 68265437769 4106 Active 2021 Not Available [facility] 3 11:56:21 Chronic pain 12317870 Active 2021 Not Available [facility] 3 11:56:22 Diabetic foot ulcer 370164461 Active 2021 Not Available [facility] 3 11:56:21 Actinic keratosis 277319090 Active 2022 Not Available [facility] 3 11:56:21 Intractab le nausea and vomiting 285851852 Active 2022 Erik Perkins DO [address] [place] [address], [phone], [facility] 3 14:26:39 Diffuse spasm of esophagus 54200354 Active 2023 Erik Perkins DO [address] [place] [address], [address], [facility] 4 13:57:14 Headache 54225880 Active 2023 Erik Perkins DO [address] [place] [address], [address], [facility] 4 14:01:14 Impacted cerumen of bilateral ears 83308184370 36553 Active 2023 JANY LONG [address] [place], [address], [facility] 4 15:18:08 Cerebrova scular accident 819589847 Active 2023 JANY LONG [address] [place] [address], [address], [facility] 4 13:37:07 Cholecyst itis 29827211 Active 2023 JANY LONG [address] [place] [address], [address], [facility] 4 13:39:08 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 921427412 Active 2023 JANY LONG [address] [place] [address], [address], [facility] 4 13:40:30 Depressiv e disorder 71014555 Active 2023 JANY LONG [address] [place] [address], [address], [facility] 4 13:41:00 Seizure disorder 054406961 Active 2023 JANY LONG [address] [place] [address], [address], [facility] 4 13:42:42 Subclinic al hyperthyr oidism 136656050 Active 2023 JANY LONG [address] [place] [address], [address], [facility] 4 13:50:37 Chronic constipat ion 714587247 Active 2024 JANY LONG [address] [place] [address], [address], [facility] 5 13:11:49 Biliary sludge 86650782 Active 2024 JANY LONG [address] [place] [address], [address], [facility] 5 13:12:05 Common bile duct calculus 230192914 Active 2024 JANY LONG [address] [place] [address], [address], [facility] 13:12:19 Nodule of lung 878888077 Active 2024 JANY LONG [address] [place] [address], [address], [facility] 5 13:12:59 Retention of urine 025260697 Active 2024 JANY LONG [address] [place] [address], [address], [facility] 15:42:01 Recurrent urinary tract infection 608825156 Active 2024 JANY LONG [address] [place] [address], [address], [facility] 09:02:20 Complicat ion of urinary catheter 530920355 Active 2024 JANY LONG [address] [place] [address], [address], [facility] 09:02:41 Recurrent falls 994004924 Active 2024 JANY LONG [address] [place] [address], [address], [facility] 09:02:57 Spasm 08887727 Active 2024 Erik Perkins DO [address] [place] [address], [phone], [facility] 13:48:01 Problem Notes None recorded. Procedures Surgical History Date Name Laterality Status Provider Name and Address Organization Details Recorded Time 08/21/19 24 Cerumen Removal completed JANY LONG [address] [place] [address], [address], [facility] 08/21/2023 15:18:01 04/19/20 18 Family Practice Trigger Point Injection completed Erik Perkins DO [address] [place] [address], [address], [facility] 04/19/2018 11:50:49 Imaging Results None recorded. Procedure Notes None recorded. Medical Equipment None Reported. Allergies Allergen ID Allergen Name Allergen Category Reaction Reaction Severity Criticality Documentation Date Start Date Code Code System Note Provider Name and Address Organization Details Recorded Time 55038 Product containin g penicilli n (product) medicatio n Not available Not available Not available 04/11/20252018 84120 8001 SNOMED Not Available elian - External Data Service - prod 16:13:48 728 penicilli n V Not available hives Not available Not available 08/08/2017 7984 RxNorm Leigh thomas [place] - [facility] 8 11:55:06 Medications Name [...] Available Not Available Not Available Milk of Magnthomas 400 mg/5 mL oral suspension SHAKE LIQUID [...] Updated DateTime 04/21/2025 90 % Martine Styles O [address] [facility], [place], [address], [facility] 04/21/2025 15:29:13 Date Recorded Body height Body mass index (BMI) Body weight Heart rate Systolic And Diastolic Provider Name and Address Organization Details Last Updated DateTime 04/21/2025 160.02 cm 21.4 kg/m2 30579.68 g 98 /min 126/64 mm[Hg] NAHEED BARR [facility] 04/21/2025 15:11:00 Social History Question [...] quadrivalent, preservative 9 completed Not Available [facility] 05/31/2019 02:46:30 COVID-19, mRNA, LNP-S, PF, 100 mcg/0.5mL dose or 50 mcg/0.25mL dose 1 completed Oma thomas [facility] 04/25/2022 11:16:53 COVID-19, mRNA, LNP-S, PF, 30 mcg/0.3 mL dose, timothy-sucrose 2 completed Oma thomas [facility] 04/25/2022 11:17:27 influenza, unspecified formulation 2 completed Oma thomas [facility] 04/25/2022 11:17:46 Influenza, split virus, quadrivalent, preservative 0 completed Jennie thomas [facility] 04/12/2020 08:10:10 COVID-19, mRNA, LNP-S, PF, 100 mcg/0.5mL dose or 50 mcg/0.25mL dose 1 completed Leigh thomas [facility] 07/23/2020 14:52:18 COVID-19, mRNA, LNP-S, PF, 100 mcg/0.5mL dose or 50 mcg/0.25mL dose 1 completed Leigh thomas [facility] 07/23/2020 14:52:26 Past Encounters Encounter ID Performer Location Encounter Start Date Encounter Closed Date Diagnosis/Indication Diagnosis SNOMED-CT Code Diagnosis ICD10 Code Diagnosis IMO Codes Diagnosis Note [id number] Erik Perkins [facility] [address] [address] 04/21/2025 14:55:37 04/21/2025 15:47:41 Depression screening 630169898 Z13.31 neg Essential hypertension 21852517 I10 overall stable saloni w bp and will cont current med Atrial fibrillation 4943 6004 I48.0 stable no issues Type 2 eb betes mellitus 54195060 E11.9 a1c is pending no rece nt lab now at 6.1 he was 6.3 again was 6.3 and prior was 6.7 and prior was 6.8 he was 7.1 relates not always following diet will have him cont to follow as needed and rechk 3 mo he cont to take his cannabis without incident sometimes [id number] is stable at 7.1 Health Concerns Section Related Observation LastModified by Organization Detai ls LastModified Time None Recorded Concern Status LastModified by Organization Details LastModified Time None Recorded Payers Encounter Date Sequence Insurance Name Policy Number Policy Daly Covered Member ID Daly Member ID Guarantor Name 04/21/2025 1 [place] [employer] Ferny Mckeon [id number] Ferny Mckeon 04/21/2025 2 [place] [id number] Ferny Mckeon [id number] Ferny Mckeon
--- OUTSIDE RECORDS SUMMARY | 2025-04-29 21:15 | XMS_ITS | Encounter Summary ---
Author Organization [facility] Address [address] [place] [address] Phone Care Team Providers Care Pricing Supervisor Name Role Phone Erik Perkins DO Primary Care Provider [phone] Suzyyunior Erik Salomon DO Unavailable Ander Cruz MD Unavailable [phone] Encounter Details Date Type Department Care Team (Late st Contact Info) Description 09/23/2023 Procedure [facility] [address] [place] [address] Social History Tobacco Use Types Packs/Day Years [...] PM EDT Soledad Quiñonez, DERICK * [place] Suicide Severity Rating Scale (Screener/Recent Self-Report) Question Answer Date of Assessment Author 1. Wish to be (Past 1 Month) No 09/24/2023 2:57 PM EDT Giselle Uribe RN 2. Non-Specific Active Suici dominique Thoughts (Past 1 Month) No 09/24/2023 2:57 PM EDT Aayush Urbie RN 6. Suicidal Behavior (Lifetime) No 2:57 PM EDT Soledad Uribe, DERICK documented as of this encounter Plan of Treatment Not on file documented as of this encounter Visit Diagnoses Not on filedocumented in this encounter Care Teams Pricing Supervisor Relationship Specialty Start Date End Date Erik Perkins DO PCP - General Internal Medicine 05/21/20 Erik Perkins DO Internal Medicine 05/21/20 Ander Cruz MD [address] [place] [address] [id number] [email or web address] Hematology and Oncology 05/15/17 documented as of this encounter Additional Source Comments The information contained in this document represents components of the legal health record. It is not the complete legal health record.[facility]
--- NOTE | 2025-04-29 21:28 | PHA.MEDREC ---
Pharmacy Consult ? Medication Reconciliation Pharmacy has completed the medication reconciliation. Spoke to patient's son Jovan ([phone]) who lives with patient and handles all medications. Noted that his fentanyl patches were put on last night and patient took all medications today
--- NOTE | 2025-04-29 23:29 | PC.NURSE ---
assumed care of patient, patient resting quietly NAD, call del rosario within reach
[2025-04-30] VITALS (11 sets, daily range): BP systolic 94–146; BP diastolic 50–72; PULSE 69–88; RESP 12–16; TEMP 36.2–37.1; O2SAT 97–100
--- NOTE | 2025-04-30 | EEG_ITS ---
History: H/O atrial fibrillation (on apixaban), diabetes, prior stroke (2023, with associated extensive cerebral venous thrombosis), BPH, hypertension, and prior pulmonary embolism, presented from home with altered mental status (AMS) of unclear onset- pt had an event this AM that he was unable to speak and was aware fo the event- event duration unknown - CT of brain showed no acute intracranial abnormalities. Medications: Acetaminophen, Amlodipine Besylate, Apixaban, Calcium Carbonate, Doxazosin Mesylate, Glucose, Insulin Human Lispro, Levetiracetam, Lisinopril, Magnesium Hydroxide, Melatonin, Omeprazole, Ondansetron HCl Technical Description Photic Stimulation: completed Hyperventilation: omitted Behavioral State: pleasant, aware of surroundings, able to carry on conversation State of Consciousness: awake and asleep Skull Defect: no Sedation: no Handedness: Right Duration:30 min 07 secs Description: The waking background activity consists of diffuse 4-5 hertz theta with bifrontal delta frequencies and discharges of 2-3 hertz throughout the record. Photic stimulation is without activation. Hyperventilation was omitted. Impression: This is an abnormal EEG due to diffuse background slowing with a frontal accentuation consistent with a diffuse encephalopathic process. No paroxysmal discharges are seen. MTDD
[2025-04-30] MEDS: 0.9 % Sodium Chloride Flush 3 ML SYRINGE IVFLUSH ×4 (00:16→20:20)
[2025-04-30] MEDS: Magnesium Sulfate/H2O 2 GM/50 ML PIGGYBACK IV (00:16)
[2025-04-30 04:37] LABS: MANUAL DIFF FLAG NO
[2025-04-30 04:42] LABS: Hematocrit 36.1 % (42.0-52.0); Hemoglobin 11.7 g/dl (14.0-18.0); Imm Gran Abs Auto 0.02 X10*3/uL (0.00-0.03); Imm Gran Pct Auto 0.4 % (0.0-0.4); Lymphocytes Absolute Auto 1.2 X10*3/uL (1.2-4.9); Mean Corpuscular HGB Conc 32.4 g/dl (31.0-36.0); Mean Corpuscular Hemoglobin 28.6 pg (27.0-33.0); Mean Corpuscular Volume 88.3 fL (80.0-98.0); NRBC Abs Auto 0.000 X10*3/uL (0.0-0.012); NRBC Pct Auto 0.0 /100WBC (0.0-0.2); Platelet Count 168 X10*3/uL (160-400); Red Blood Count 4.09 X10*6/uL (4.60-5.80); White Blood Count 5.3 X10*3/uL (4.8-10.8)
[2025-04-30 04:57] LABS: Anion Gap 14 (12-20); Blood Urea Nitrogen 16 mg/dL (9-16); Calcium 8.9 mg/dL (8.4-10.2); Carbon Dioxide 23 mmol/L (22-29); Chloride 105 mmol/L (96-108); Creatinine Clr Calc Pharmacy 67.8; Estimated Glomerular Filt Rate > 60; Magnesium 2.3 mg/dL (1.6-2.6); Potassium 5.0 mmol/L (3.3-5.1); Sodium 137 mmol/L (135-145)
[2025-04-30 06:35] LABS: Glucose, Whole Blood 118 mg/dL (60-115)
--- NOTE | 2025-04-30 06:41 | PC.NURSE ---
patient unable to urinate after multiple attempts, bladder scan showed 295, 2 assist to stand at bedside to void, still unsuccessful. Patient reporting he will not be catheterized hospitalist made aware
--- NOTE | 2025-04-30 07:36 | PC.NURSE ---
Assumed care of pt, currently sleeping, VSS on monitor, allowed to rest.
[2025-04-30 08:19] LABS: Glucose, Whole Blood 106 mg/dL (60-115)
--- NOTE | 2025-04-30 10:07 | PC.NURSE ---
Pt is a&ox4, following commands, ,swallowing meds wth no issue, provider updated for diet order. MRI form completed, faxed down.
[2025-04-30 10:29] LABS: Appearance Urine Cloudy; Glucose Urine UA Negative (Negative); PH 5.0 (5.0-9.0); Specific Gravity - Urine 1.020 (1.005-1.025); UMIC TRIGGER UACC YES
[2025-04-30 10:32] LABS: UACC Culture Trigger YES
[2025-04-30 10:39] LABS: Cannabinoid Screen Urine POSITIVE (Not Detect)
--- NOTE | 2025-04-30 11:01 | MHC.CM.PN ---
Richa 04/30/25, Pt. lives with his son, Ferny, who is also his HCP. PCP confirmed: Erik Perkins DO. Pt. said he does not currently have home health services, he used to but does not now. For DME, he has a walker and crutches. Son to transport home at [place]. DCP: home with services or STR. CM to follow for DC needs.
[2025-04-30 11:28] LABS: Glucose, Whole Blood 177 mg/dL (60-115)
--- NOTE | 2025-04-30 11:30 | PM.NEUROCN ---
History of Present Illness Data of Consult Service Date: 04/30/25 Primary Care Provider: Erik Perkins MD [facility] Reason for consult: Change in mental status 85-year-old male with a history of atrial fibrillation (on apixaban), diabetes, prior stroke (2023, with associated extensive cerebral venous thrombosis), BPH, hypertension, and prior pulmonary embolism, presented from home with altered mental status (AMS) of unclear onset. Patient said that this morning he could not speak but he remember that he could not speak. There was no associated weakness. Apparently he was admitted with change in mental status. There was no complain of headache. He was not febrile. No seizure-like episode was noted. Review of Systems Review of Systems: No recent cold or flu-like illness Cardiovascular no chest pain or palpitation Respiratory: No shortness of breath or breathing Psychiatric:: No recent change in mood. Genitourinary: No loss of bowel bladder control PMFSH Past Medical History Medical History Elevated bilirubin Fall BPH (benign prostatic hyperplasia) Stroke Afib Diabetes Essential hypertension History of pulmonary embolism Gallbladder sludge Family History Family History Father Heart attack Surgical History Surgical History Previous back surgery Social History Social History Household Members: Family Household Members Other:: Son Housing: [facility] Do you presently have visiting nurse or other home services: No Unable to assess alcohol history related to: Unknown Alcohol intake: never Comment: IV Ofirmev infusing Patient Tobacco Use Status: Former Tobacco user Tobacco use type: Cigarette Years Smoked: 30 Second Hand Smoke Exposure: No Use of substances other than those prescribed or required for medical reasons: Unknown Advance Directives: Yes Advance Directives on File: Yes Advance Directives Date on File: 12/23/24 Nutrition Risks: No Nutritional Risk service: No Meds Allergies Allergy/AdvReac Type Severity Reaction Status Date / Time Penicillins Allergy Intermediate Rash Verified 04/29/25 18:58 Active Medications: Current Medications Acetaminophen (Acetaminophen 325 Mg Tablet) 650 mg PO Q6H PRN PRN Reason: Pain, Mild 1-3,fever,headache Amlodipine Besylate (Amlodipine Besylate 10 Mg Tablet) 10 mg PO DAILY [facility]; Protocol Last Admin: 04/30/25 09:22 Dose: 10 mg Apixaban (Apixaban 5 Mg Tablet) 5 mg PO BID [facility] Last Admin: 04/30/25 09:22 Dose: 5 mg Calcium Carbonate (Calcium Carbonate 750 Mg Tab.Chew) 750 mg PO Q4H PRN PRN Reason: Heartburn Dextrose (Dextrose 50 % 25 Gm/50 Ml Syringe) 25 gm IVPUSH Q15M PRN; Protocol PRN Reason: per Hypoglycemia Standing Ord. Doxazosin Mesylate (Doxazosin Mesylate 2 Mg Tablet) 4 mg PO BEDTIME [facility]; Protocol Finasteride (Finasteride 5 Mg Tablet) 5 mg PO DAILY [facility] Last Admin: 04/30/25 09:18 Dose: Not Given Glucose (Glucose Gel 15 Gm Gel..Gram.) 15 gm PO Q15M PRN; Protocol PRN Reason: per Hypoglycemia Standing Ord. Insulin Human Lispro (Insulin Lispro 100 Unit/Ml 3 Ml Vial) 0 unit SUBCUT QIDACHS [facility]; Protocol Last Admin: 04/30/25 06:55 Dose: Not Given Levetiracetam (Levetiracetam 500 Mg Tablet) 500 mg PO DAILY [facility] Last Admin: 04/30/25 09:22 Dose: 500 mg Lisinopril (Lisinopril 10 Mg Tablet) 10 mg PO DAILY [facility]; Protocol Last Admin: 04/30/25 09:21 Dose: 10 mg Magnesium Hydroxide (Milk Of Magnesia 30 Ml Oral.Susp) 30 ml PO DAILY PRN PRN Reason: Constipation Melatonin (Melatonin 3 Mg Tablet) 3 mg PO BEDTIME PRN PRN Reason: Insomnia Omeprazole (Omeprazole 20 Mg Capsule.Dr) 20 mg PO BID@0630,1630 [facility] Last Admin: 04/30/25 06:17 Dose: 20 mg Ondansetron HCl (Ondansetron Hcl 4 Mg/2 Ml Vial) 4 mg IVPUSH Q8H PRN PRN Reason: Nausea and Vomiting Sodium Chloride (0.9 % Sodium Chloride Flush 3 Ml Syringe) 3 ml IVFLUSH QSHIFT [facility] Last Admin: 04/30/25 09:28 Dose: 3 ml Home Medications ?Medication ?Instructions ?Recorded ?Confirmed ?Last Taken ?Type amlodipine 10 mg tablet 10 mg PO DAILY 10/14/23 04/29/25 04/29/25 History lisinopril 10 mg tablet 10 mg PO DAILY 10/14/23 04/29/25 04/29/25 History fentanyl 100 mcg/hr transdermal 100 mcg topical Q72H 12/01/24 04/29/25 04/28/25 History patch levetiracetam 500 mg tablet 500 mg PO DAILY 12/01/24 04/29/25 04/29/25 History cholecalciferol (vitamin D3) 25 25 mcg PO DAILY 04/29/25 04/29/25 04/29/25 History mcg (1,000 unit) tablet cyclobenzaprine 10 mg tablet 10 mg PO TID PRN Muscle Spasm 04/29/25 04/29/25 Unknown History Physical Exam Vital Signs: Vital Signs: Last Vital Signs Temp 97.1 F 04/30/25 08:15 Pulse 69 04/30/25 08:15 Resp 13 04/30/25 08:15 BP 134/62 04/30/25 09:22 Pulse Ox 100 04/30/25 08:15 O2 Del Method Room Air 04/30/25 08:15 BMI result Body Mass Index 22.1 Neuro: Other: Mental Status: He is alert and awake with normal spontaneity of speech fluency comprehension and affect. He has following commands. Cranial Nerves: CN II: Visual polk full to confrontation, visual acuity intact. CN III, IV, : Pupils equal, round, reactive to light and accommodation. Extraocular movements are normal. CN V: Facial sensation is normal. CN VII: Facial movements symmetrical. CN VIII: Hearing intact to bedside conversation is normal. CN IX, X: Palate elevates symmetrically. CN XI: Shoulder shrug and head turn symmetrical. CN XII: Tongue midline without atrophy or fasciculations. Motor: No arm or leg weakness Reflexes: Deep tendon reflexes are trace to absent with flexor plantars. Coordination: [id number] is okay. Extrapyramidal: Full facial expressions and blinking. No rigidity. Movements are appropriate with no tremor or abnormality. Speech: Normal; no dysarthria or tremor. Results Labs 04/30/25 04:18 04/30/25 04:18 Labs: Short CBC 04/29/25 04/30/25 Range/Units 19:39 04:18 WBC 9.6 5.3 (4.8-10.8) X10*3/uL Hgb 13.4 L 11.7 L (14.0-18.0) g/dl Hct 41.6 L 36.1 L (42.0-52.0) % Plt Count 188 168 (160-400) X10*3/uL BMP 04/29/25 04/30/25 19:39 04:18 Sodium 137 137 Potassium 4.0 5.0 D Chloride 102 105 Carbon Dioxide 23 23 BUN 13 16 Creatinine 0.74 0.68 Calcium 9.3 8.9 Liver Function 04/29/25 Range/Units 19:39 Total Bilirubin 1.1 H (0.0-1.0) mg/dL Direct Bilirubin 0.4 (0.0-0.5) mg/dL AST 15 (5-37) U/L ALT 7 (0-40) U/L Alkaline Phosphatase 85 (39-117) U/L Albumin 4.7 (3.5-5.0) g/dL Urine 04/30/25 Range/Units 10:18 Urine Color Yellow Urine Appearance Cloudy Urine pH 5.0 (5.0-9.0) Ur Specific Pollard 1.020 (1.005-1.025) Urine Protein Negative (Neg-Trace) mg/dL Urine Glucose (UA) Negative (Negative) mg/dL CT head without contrast Comparison: 01/23/2025 Findings: No intracranial mass, midline shift, hydrocephalus, or acute hemorrhage. No CT evidence of acute ischemia. Similar-appearing sequela of chronic microangiopathic white matter ischemic disease. Visualized paranasal sinuses and mastoid air cells normal. Orbits unremarkable. No skull fracture Impression: 1. No acute intracranial abnormalities. Assessment and Plan (1) Slurred speech: Status: Acute 85 years old man with significant cerebral atrophy and microvascular ischemic changes of brain presented with change in mental status and reported difficulty speaking this morning. Exact etiology was unclear but seizure disorder was more likely than stroke. I would recommend an EEG. As far as vascular disease is concerned, continue anti-platelet agent blood pressure management. (2) Seizure: Status: Acute Procedures Date of Service Date of Service: 04/30/25
--- NOTE | 2025-04-30 12:05 | PC.NURSE ---
Assisted to standing to urinate, unable to void completely. PVR: 570cc.
[2025-04-30 13:35] LABS: Glucose, Whole Blood 148 mg/dL (60-115)
--- NOTE | 2025-04-30 15:38 | P.PNIM_ITS ---
Subjective Subjective Date of Service: 04/30/25 Interval History: seen and examined this morning follow up for episode of slurred speech, seems to have resolved and no further recurrence no specific complaints at this time Review of Systems Review of Systems: Yes all other systems are reviewed and are negative Constitutional Constitutional: Denies chills and Denies fever(s) Cardiovascular Cardiovascular: Denies chest pain and Denies palpitations Gastrointestinal Gastrointestinal: Denies abdominal pain, Denies diarrhea, Denies nausea and Denies vomiting Endocrine Endocrine: Denies palpitations Physical Exam 2 Vital Signs: Vital Signs: Last Vital Signs Temp 97.6 F 04/30/25 14:00 Pulse 69 04/30/25 14:00 Resp 12 04/30/25 14:00 BP 117/60 04/30/25 14:00 Pulse Ox 99 04/30/25 14:00 O2 Del Method Room Air 04/30/25 14:00 BMI result Body Mass Index 22.1 Const: General: cooperative, comfortable, no acute distress, alert and awake Nutritional Appearance: average body habitus Orientation/consciousness: o riented to person and oriented to place Resp: Effort & Inspection: normal respiratory effort, able to speak in complete sentences, no respiratory distress and no use of accessory muscles Cardio: Rate: regular rate GI: Palpation (GI): Soft to palpation and nontender Neuro: Other: no focal deficits appreciated General: oriented to person, oriented to place and moves all extremities Extrem: General: No pedal edema Objective Data Active Medications Acetaminophen (Acetaminophen 325 Mg Tablet) 650 mg PO Q6H PRN PRN Reason: Pain, Mild 1-3,fever,headache Amlodipine Besylate (Amlodipine Besylate 10 Mg Tablet) 10 mg PO DAILY [facility]; Protocol Last Admin: 04/30/25 09:22 Dose: 10 mg Documented By: MINISTERIO Apixaban (Apixaban 5 Mg Tablet) 5 mg PO BID SHANNA Last Admin: 04/30/25 09:22 Dose: 5 mg Documented By: MINISTERIO Calcium Carbonate (Calcium Carbonate 750 Mg Tab.Chew) 750 mg PO Q4H PRN PRN Reason: Heartburn Dextrose (Dextrose 50 % 25 Gm/50 Ml Syringe) 25 gm IVPUSH Q15M PRN; Protocol PRN Reason: per Hypoglycemia Standing Ord. Doxazosin Mesylate (Doxazosin Mesylate 2 Mg Tablet) 4 mg PO BEDTIME SHANNA; Protocol Finasteride (Finasteride 5 Mg Tablet) 5 mg PO DAILY [facility] Last Admin: 04/30/25 09:18 Dose: Not Given Documented By: MINISTERIO Non-Admin Reason: Med Not Available Glucose (Glucose Gel 15 Gm Gel..Gram.) 15 gm PO Q15M PRN; Protocol PRN Reason: per Hypoglycemia Standing Ord. Insulin Human Lispro (Insulin Lispro 100 Unit/Ml 3 Ml Vial) 0 unit SUBCUT QIDACHS [facility]; Protocol Last Admin: 04/30/25 11:30 Dose: Not Given Documented By: MINISTERIO Non-Admin Reason: NPO Levetiracetam (Levetiracetam 500 Mg Tablet) 500 mg PO DAILY [facility] Last Admin: 04/30/25 09:22 Dose: 500 mg Documented By: MINISTERIO Lisinopril (Lisinopril 10 Mg Tablet) 10 mg PO DAILY [facility]; Protocol Last Admin: 04/30/25 09:21 Dose: 10 mg Documented By: MINISTERIO Magnesium Hydroxide (Milk Of Magnesia 30 Ml Oral.Susp) 30 ml PO DAILY PRN PRN Reason: Constipation Melatonin (Melatonin 3 Mg Tablet) 3 mg PO BEDTIME PRN PRN Reason: Insomnia Omeprazole (Omeprazole 20 Mg Capsule.Dr) 20 mg PO BID@0630,1630 [facility] Last Admin: 04/30/25 06:17 Dose: 20 mg Documented By: LATRICE Ondansetron HCl (Ondansetron Hcl 4 Mg/2 Ml Vial) 4 mg IVPUSH Q8H PRN PRN Reason: Nausea and Vomiting Sodium Chloride (0.9 % Sodium Chloride Flush 3 Ml Syringe) 3 ml IVFLUSH QSHIFT [facility] Last Admin: 04/30/25 09:28 Dose: 3 ml Documented By: MINISTERIO Labs 04/30/25 04:18 04/30/25 04:18 Labs: Laboratory Results - last 24 hr 04/29/25 04/29/25 04/29/25 19:10 19:39 19:47 MCV 88.5 MCH 28.5 MCHC 32.2 RDW 13.9 Plt Count 188 MPV 9.7 Immature Gran % (Auto) 0.4 Neut % (Auto) 78.7 H Lymph % (Auto) 15.0 L Garden % (Auto) 5.0 Eos % (Auto) 0.5 Baso % (Auto) 0.4 Lymph # (Auto) 1.4 Garden # (Auto) 0.5 Eos # (Auto) 0.1 Baso # (Auto) 0.0 Abs Immat Gran (auto) 0.04 H Absolute Neuts (auto) 7.5 Absolute Nucleated RBC 0.000 Nucleated RBC % (auto) 0.0 PT 20.1 H INR 1.7 H Anion Gap 16 Estim Creat Clear Calc 62.3 Estimated GFR > 60 POC Glucose 193 H Random Glucose 243 H Estimat Average Glucose Hemoglobin A1c % Calcium 9.3 Magnesium 1.6 Total Bilirubin 1.1 H Direct Bilirubin 0.4 AST 15 ALT 7 Alkaline Phosphatase 85 Troponin I High Sens < 2.7 Total Protein 6.9 Albumin 4.7 Lipase 9 Urine Color Urine Appearance Urine pH Ur Specific [place] Urine Protein Urine Glucose (UA) Urine Ketones Urine Blood Urine Nitrite Ur Leukocyte Esterase Urine RBC Urine WBC Ur Squamous Epith Cells Urine Bacteria Hyaline Casts Salicylates < 5.0 L Urine Opiates Screen Ur Buprenorphine Scrn Ur Oxycodone Screen Urine Methadone Screen Urine Fentanyl Screen Acetaminophen < 3 Ur Barbiturates Screen Ur Phencyclidine Scrn Ur Amphetamines Screen U Benzodiazepines Scrn Urine Cocaine Screen U Marijuana (THC) Screen Ethyl Alcohol < 10 Influenza Type A (PCR) NEGATIVE Influenza Type B (PCR) NEGATIVE RSV RNA Qual (PCR) NEGATIVE SARS-CoV-2 RNA (RT-PCR) NEGATIVE 04/30/25 04/30/25 04/30/25 04:18 06:26 08:13 MCV 88.3 MCH 28.6 MCHC 32.4 RDW 14.0 Plt Count 168 MPV 10.0 Immature Gran % (Auto) 0.4 Neut % (Auto) 69.8 Lymph % (Auto) 21.7 Garden % (Auto) 7.9 Eos % (Auto) 0.0 Baso % (Auto) 0.2 Lymph # (Auto) 1.2 Garden # (Auto) 0.4 Eos # (Auto) 0.0 Baso # (Auto) 0.0 Abs Immat Gran (auto) 0.02 Absolute Neuts (auto) 3.7 Absolute Nucleated RBC 0.000 Nucleated RBC % (auto) 0.0 PT INR Anion Gap 14 Estim Creat Clear Calc 67.8 Estimated GFR > 60 POC Glucose 118 H 106 Random Glucose 136 H Estimat Average Glucose Hemoglobin A1c % Calcium 8.9 Magnesium 2.3 Total Bilirubin Direct Bilirubin AST ALT Alkaline Phosphatase Troponin I High Sens Total Protein Albumin Lipase Urine Color Urine Appearance Urine pH Ur Specific [place] Urine Protein Urine Glucose (UA) Urine Ketones Urine Blood Urine Nitrite Ur Leukocyte Esterase Urine RBC Urine WBC Ur Squamous Epith Cells Urine Bacteria Hyaline Casts Salicylates Urine Opiates Screen Ur Buprenorphine Scrn Ur Oxycodone Screen Urine Methadone Screen Urine Fentanyl Screen Acetaminophen Ur Barbiturates Screen Ur Phencyclidine Scrn Ur Amphetamines Screen U Benzodiazepines Scrn Urine Cocaine Screen U Marijuana (THC) Screen Ethyl Alcohol Influenza Type A (PCR) Influenza Type B (PCR) RSV RNA Qual (PCR) SARS-CoV-2 RNA (RT-PCR) 04/30/25 04/30/25 04/30/25 08:41 10:18 11:25 MCV MCH MCHC RDW Plt Count MPV Immature Gran % (Auto) Neut % (Auto) Lymph % (Auto) Garden % (Auto) Eos % (Auto) Baso % (Auto) Lymph # (Auto) Garden # (Auto) Eos # (Auto) Baso # (Auto) Abs Immat Gran (auto) Absolute Neuts (auto) Absolute Nucleated RBC Nucleated RBC % (auto) PT INR Anion Gap Estim Creat Clear Calc Estimated GFR POC Glucose 177 H Random Glucose Estimat Average Glucose 140 Hemoglobin A1c % 6.5 H Calcium Magnesium Total Bilirubin Direct Bilirubin AST ALT Alkaline Phosphatase Troponin I High Sens Total Protein Albumin Lipase Urine Color Yellow Urine Appearance Cloudy Urine pH 5.0 Ur Specific [place] 1.020 Urine Protein Negative Urine Glucose (UA) Negative Urine Ketones Negative Urine Blood Negative Urine Nitrite Negative Ur Leukocyte Esterase Moderate (2+) H Urine RBC 0-2 Urine WBC >50 H Ur Squamous Epith Cells 0-2 Urine Bacteria None Seen Hyaline Casts 3-5 Salicylates Urine Opiates Screen Not Detected Ur Buprenorphine Scrn Not Detected Ur Oxycodone Screen Not Detected Urine Methadone Screen Not Detected Urine Fentanyl Screen POSITIVE H Acetaminophen Ur Barbiturates Screen Not Detected Ur Phencyclidine Scrn Not Detected Ur Amphetamines Screen Not Detected U Benzodiazepines Scrn Not Detected Urine Cocaine Screen Not Detected U Marijuana (THC) Screen POSITIVE H Ethyl Alcohol Influenza Type A (PCR) Influenza Type B (PCR) RSV RNA Qual (PCR) SARS-CoV-2 RNA (RT-PCR) 04/30/25 13:30 MCV MCH MCHC RDW Plt Count MPV Immature Gran % (Auto) Neut % (Auto) Lymph % (Auto) Garden % (Auto) Eos % (Auto) Baso % (Auto) Lymph # (Auto) [place] # (Auto) Eos # (Auto) Baso # (Auto) Abs Immat Gran (auto) Absolute Neuts (auto) Absolute Nucleated RBC Nucleated RBC % (auto) PT INR Anion Gap Estim Creat Clear Calc Estimated GFR POC Glucose 148 H Random Glucose Estimat Average Glucose Hemoglobin A1c % Calcium Magnesium Total Bilirubin Direct Bilirubin AST ALT Alkaline Phosphatase Troponin I High Sens Total Protein Albumin Lipase Urine Color Urine Appearance Urine pH Ur Specific [place] Urine Protein Urine Glucose (UA) Urine Ketones Urine Blood Urine Nitrite Ur Leukocyte Esterase Urine RBC Urine WBC Ur Squamous Epith Cells Urine Bacteria Hyaline Casts Salicylates Urine Opiates Screen Ur Buprenorphine Scrn Ur Oxycodone Screen Urine Methadone Screen Urine Fentanyl Screen Acetaminophen Ur Barbiturates Screen Ur Phencyclidine Scrn Ur Amphetamines Screen U Benzodiazepines Scrn Urine Cocaine Screen U Marijuana (THC) Screen Ethyl Alcohol Influenza Type A (PCR) Influenza Type B (PCR) RSV RNA Qual (PCR) SARS-CoV-2 RNA (RT-PCR) Assessment and Plan (1) Seizure: Status: Acute (2) Slurred speech: Status: Acute Plan 85-year-old male with multiple vascular risk factors (AFib, prior CVA, diabetes, prior PE), on anticoagulation, presenting with acute altered mental status associated with slurred speech. No evidence of infection, metabolic, or toxicologic cause on initial workup. Labs notable for therapeutic anticoagulation, mild hyperglycemia, and mild anemia. Imaging unremarkable. episode of slurred speech admitted for possible TIA seen by Neurology consulted, concern for possible seizure, less likely stroke - check EEG and no need for brain MRI at this time upon review of chart, pt was diagnosed with seizure last year and was d/c with keppra 500 bid, now only on 500 once daily. unclear reason. will increase keppra dose back to 500 bid passed beside swallow, tolerating diet; awaiting speech evaluation on full AC with Beckie seen by PT rec home with 24/7 care vs STR Chronic back pain continue lower dose fentanyl patch for now, if no sedation can resume full home dose BPH with LUTs cardura, proscar Diet controlled diabetes SSI, POCs Hba1c 6.5 Atrial fibrillation: Not on rate control meds Continue full anticoagulation with Eliquis HTN continue baseline meds Healthcare proxy: keith Isaacs Code status: Full Quality Stroke Does the patient have a stroke diagnosis?: No VTE Prior VTE?: Yes VTE Risk Level:: Medical - moderate - high VTE Device Contraindication: N/A - Device Ordered VTE Drug Contraindication: N/A - Med Ordered
--- NOTE | 2025-04-30 17:23 | PC.NURSE ---
Son at bedside, concerned about pt's mentation, PA spoke with him on the unit. he remains a&ox4, slow to answer questions. No further hallucinations today. Consumed lunch tray with no issue, has been voiding standing up with 2 assist. VSS. EEG currently being completed at bedside.
[2025-04-30 17:46] LABS: Glucose, Whole Blood 148 mg/dL (60-115)
[2025-04-30] MEDS: fentaNYL 50 MCG PATCH.TD72 TRANSDERMA (18:36)
[2025-04-30 20:07] LABS: Glucose, Whole Blood 143 mg/dL (60-115)
[2025-05-01 01:46] VITALS: O2SAT 96
[2025-05-01 03:00] VITALS: BP 116/58; PULSE 70; RESP 16; TEMP 36.5; O2SAT 98
[2025-05-01 08:00] VITALS: BP 114/55; PULSE 85; RESP 20; O2SAT 95
[2025-05-01] MEDS: 0.9 % Sodium Chloride Flush 3 ML SYRINGE IVFLUSH (08:22)
[2025-05-01 08:53] LABS: Glucose, Whole Blood 163 mg/dL (60-115)
--- NOTE | 2025-05-01 10:29 | MHC.CM.PN ---
Addendum entered by Eva Flores 05/01/25 13:48: Patient will need SN/PT/ [facility] if dc'd to home with [facility]. Original Note: CM met with Patient to discuss PT's recommendation for STR; Patient wants to go home. CM confirmed in Rounds, per PA, Patient is his own decision-maker. Sitter will be dc'd today.
--- NOTE | 2025-05-01 11:25 | P.DS_ITS ---
DS: Providers Provider Date of admission: 04/29/25 20:40 Date of discharge: 05/01/25 Primary care physician: Erik Perkins MD Consults: 04/29/25 23:24 Consult to Neurology Routine Consulting Provider: [facility] Reason for consultation: dysarthria and AMS Attending physician on discharge: Eran Ahn Discharging clinician: Naomi Alexander DS: Diagnosis Discharge Diagnosis (1) Seizure: Status: Acute (2) Slurred speech: Status: Acute DS: Summary Hospital Course Hospital Course: From H&P on the day of admission An 85-year-old male with a history of atrial fibrillation (on apixaban), diabetes, prior stroke (2023, with associated extensive cerebral venous thrombosis), BPH, hypertension, and prior pulmonary embolism, presented from home with altered mental status (AMS) of unclear onset. The patient is a poor historian; his son reports the patient is nearly back to baseline but remains slightly confused. The patient is on chronic fentanyl patches (total 150 mcg/hr), levetiracetam, mirtazapine, and antihypertensives. No recent medication changes. No fever, no signs of infection, and no clear toxic or metabolic etiology identified in the ED. Fentanly 100 mcg transdermal was removed by the ED clinician, currently only Fentanyl [address]. Diagnostic studies Hgb 13.4, Hct 41.6, WBC and platelets within normal limits. PT (20.1 sec) and INR (1.7), consistent with anticoagulation. Electrolytes within normal limits. Renal function normal. Glucose elevated POC 193, random 243. Toxicology: Salicylate, acetaminophen, and ethanol levels undetectable Troponin normal. No evidence of acute infection or metabolic derangement. Imaging and Other Studies: Noncontrast head CT: No acute abnormalities. ECG: Atrial fibrillation, no ischemic changes. Occasional pacemaker capture. Collateral information obtained from keith Govea at bedside: Pre-hospital cognition and function obtained from keith Govea at bedside: Orientation: Intact Memory: long standing mild short-term memory impairment characterized by misplaced in items, and intact long-term memory ADLs: Independent ADLs: Assistance, keith Aldana assistance with medication management by filling his pill box Mobility: Ambulate independently with a walker episode of slurred speech admitted for possible TIA seen by Neurology who felt there was concern for possible seizure, less likely stroke and recommended to check EEG and no need for brain MRI at this time. upon review of chart, patient was diagnosed with seizure last year and was discharged with keppra 500 bid. Med list now showing only on 500 once daily. keppra dose increased back to 500 bid. EEG was obtained, but the report is pending at this time. recommend outpatient follow up with neurology to discuss results. passed beside swallow, tolerating diet; seen by speech therapy who recommended chopped/advanced diet with nectar thick liquids. Mental status improved, alert and oriented. Continue full AC with Eliquis. There is no leukocytosis, patient has remained afebrile, urine culture negative, no infectious source identified. There was initial concern that patient had accidentally doubling up on higher dose fentanyl patch. This was removed in ED and lower dose fentanyl was continued. Can resume normal dose upon discharge, if confusion recurs remove fentanyl patch and call PCP. seen by PT rec home with 04/12 care vs STR, however patient now ambulating in room with walker without difficulty. he does not want to go to STR. Time Attestation Discharge Coordination Time (in mins): 36 Quality: Safe Use of Opioids Does Pt have an Active Cancer Diagnosis on the Problem List?: No Quality: Stroke Does the patient have a stroke diagnosis?: No Physical Exam Vital Signs: Vital Signs: Last Vital Signs Temp 97.7 F 05/01/25 03:00 Pulse 85 05/01/25 08:00 Resp 20 05/01/25 08:00 BP 114/55 L 05/01/25 08:00 Pulse Ox 95 05/01/25 08:00 O2 Del Method Room Air 05/01/25 08:00 BMI result Body Mass Index 20.0 Const: General: cooperative, comfortable, no acute distress, alert and awake Nutritional Appearance: average body habitus Orientation/consciousness: oriented to person and oriented to place Resp: Effort & Inspection: normal respiratory effort, able to speak in complete sentences, no respiratory distress and no use of accessory muscles Cardio: Rate: regular rate GI: Palpation (GI): Soft to palpation and nontender Neuro: Other: no focal deficits appreciated General: oriented to person, oriented to place and moves all extremities Extrem: General: No pedal edema DS: Data Data Completed and Pending Completed studies during hospitalization [Text1]: Procedures Insertion of Pacemaker Lead into Right Atrium, Percutaneous Approach (10/14/23) Insertion of Pacemaker Lead into Right Ventricle, Percutaneous Approach (10/14/23) Insertion of Pacemaker, Dual Chamber into Chest Subcutaneous Tissue and Fascia, Open Approach (10/14/23) Labs on day of discharge: Laboratory Results - last 24 hr 04/30/25 04/30/25 04/30/25 11:25 13:30 17:38 POC Glucose 177 H 148 H 148 H 04/30/25 05/01/25 20:03 08:01 POC Glucose 143 H 163 H Discharge Plan Discharge Patient Disposition: Home Health Service Referrals: [facility] [Outside] - 1 Week Erik Perkins MD [Primary Care Provider, Internal Medicine] - 1 Week David Crawford MD [Physician, Neurology] - 1 Week Discharge Medications: New levetiracetam 500 mg Tablet 500 mg PO BID 90 Days Qty: 180 0RF Continued amlodipine 10 mg tablet 10 mg PO DAILY lisinopril 10 mg tablet 10 mg PO DAILY omeprazole 20 mg Capsule,Delayed Release(Dr/Ec) 20 mg PO BID@0630,1630 Qty: 0 0RF metformin 500 mg tablet 500 mg PO BIDWMEAL Qty: 60 0RF Eliquis 5 mg Tablet 5 mg PO BID Qty: 0 0RF levetiracetam 500 mg tablet 500 mg PO DAILY fentanyl 100 mcg/hr patch 72 hour 100 mcg topical Q72H Patient Comments: arrives 01/22/25 with 2 day old patch polyethylene glycol 3350 17 gram Powder In Packet 17 g PO BID PRN (Reason: constipation) Qty: 120 0RF magnesium hydroxide [Milk of Magnesia] 400 mg/5 mL Suspension 30 ml PO DAILY PRN (Reason: Constipation) Qty: 200 0RF docusate sodium 100 mg Capsule 100 mg PO BID Qty: 60 0RF fentanyl 50 mcg/hr patch 72 hour 1 patch transdermal Q72H 30 Days Qty: 5 0RF Rx Instructions: Partial Fill upon patient request. cholecalciferol (vitamin D3) 25 mcg (1,000 unit) Tablet 25 mcg PO DAILY finasteride 5 mg tablet 5 mg PO DAILY 90 Days Qty: 90 1RF terazosin 5 mg capsule 5 mg PO BEDTIME 90 Days Qty: 90 1RF Held cyclobenzaprine 10 mg tablet 10 mg PO TID PRN (Reason: Muscle Spasm) Hold Instructions: can cause confusion and sedation; hold off if able Discharge Orders: Discharge Order (Routine); Ordered 05/01/25 Ordered By: Naomi Alexander Activity on Discharge: As tolerated Stand Alone Forms: Patient Portal Discharge page Print Language: Divehi Care Plan Goals: see below Health Concerns: slurred speech/confusion likely due to seizure Urinary tract infection ruled out Plan of Treatment: dose of keppra increased back to 500 bid. should not be taken once daily speech therapy recommended NDD3 chopped/advance diet with nectar thick liquids due to mild dysphagia -ongoing speech therapy physical therapy upon discharge call to schedule follow up appointment with neurology to discuss results of EEG call PCP to schedule follow up appointment fentanyl and cyclobenzaprine can cause confusion. use with caution Assessment: see discharge summary Patient Instructions: Levetiracetam (By mouth), Electroencephalogram (DC)
--- NOTE | 2025-05-01 11:45 | MHC.SL.SWA ---
Speech Pathologist Impression: Mild oropharyngeal dysphagia Risk of Aspiration Due to: AMS Dysphasia Diet Status: Recommend DOWNGRADE to NDD3, NECTAR THICK Liquids Liquid Consistency and Strategies for Safe Swallow: Liquid Intake Recommendation: [facility] Thick Liquid Intake Strategies: Solid Food Consistency: Dietary Recommendations: Chopped/Advanced (NDD3) Additional Modifications to Solid Foods: Oral Medication Intake: Whole with Liquid Please contact the pharmacy regarding appropriate crushable or liquid drug formulations that are available whenever modified delivery is recommended. Compensatory Strategies and Precautions to be Taken for Safe Swallow: Sit Upright Slow self-feeding rate Small sips/bites Alternate liquids/solids Remain upright after meal (30 minutes) Supervision While Eating and Drinking for Safe Swallow: Direct Supervision (1:1) Foods to Avoid: dry, crunchy, overly sticky solids Swallowing Recommended Treatments: Recommendation for Speech: Inpatient Speech Therapy Comment: Patient presents with mild oropharyngeal dysphagia. Patient reporting I have trouble with liquids. Patient with coughing and noted intermittent wet vocal quality with sips of water; patient with some impulsivity of taking consecutive cup sips vs singular. No coughing noted with nectar thickened cranberry juice. LAY OUT AND DETAIL DRAFTER explaining benefits of thickened liquids; patient reporting that he will not comply with liquid recommendations. Patient tolerating small pieces of chelo crackers; timely mastication, adequate cohesion and clearance. Patient's current diet in Expanse as NDD3, no liquid recommendations. Recommend DOWNGRADE to NDD3, NECTAR THICK liquids with direct supervision and tray set-up. Medications WHOLE with NTLs. Encourage use of thickened liquids/explain aspiration risk to patient. LAY OUT AND DETAIL DRAFTER recommendations communicated with MD, RN, and RD via secure chat. LAY OUT AND DETAIL DRAFTER to continue to follow. Frequency/Duration: M-F Daily Date Range for Service Req: Timeline to reassess: Credit Report Checker Clinican/Clinical Fellow: No Supervisory Statement: I have reviewed and agree with the student/clinical fellow's documentation: N/A Speech Language Pathologist: Ammy Lomeli M.A., [facility] [place]-LAY OUT AND DETAIL DRAFTER
[2025-05-01 11:56] LABS: Glucose, Whole Blood 141 mg/dL (60-115)
[2025-05-01 12:00] VITALS: BP 116/57; PULSE 70; RESP 19; TEMP 36.8; O2SAT 97
--- NOTE | 2025-05-01 13:58 | P.F2F_ITS ---
Service Date Service Date: 05/01/25 Encounter Date of encounter: 05/01/25 Reasons for Services Signs and symptoms assessed: needs residential for med review Reason for physical therapy: home safety and mobility and therapeutic exercises Reason for speech therapy: swallowing impairment Overseeing Care: Erik Perkins Homebound: Leaving the home is medically contraindicated at this time without the asist of a device and/or another person due th the listed conditions above and below. Reason homebound: unsteady gait / fall risk Certification: Based on the above findings, I certify that this patient is confined to the home and needs intermittent residential care, physical therapy and/or speech therapy, or continues to need occupational therapy. The patient is under my care, and I have initiated the establishment of the plan of care. The patient will be followed by a physician who will periodically review the plan of care. Time Spent With Patient Time: Total time managing care of this patient today ____ minutes.
--- NOTE | 2025-05-01 14:21 | MHC.CM.PN ---
Addendum entered by Eva Flores 05/01/25 16:22: [facility] has accepted Patient. Addendum entered by Eva Flores 05/01/25 16:18: [facility] is unable to accept Patient. Original Note: Patient has been medically cleared for dc to home today, with services; [facility] is aware of today's dc.
[2025-05-01 15:20] VITALS: BP 122/57; PULSE 77; RESP 18; TEMP 37.2; O2SAT 98
[2025-05-01 16:28] LABS: Glucose, Whole Blood 171 mg/dL (60-115)
== END 2025-05-01 16:58 | disposition home health service (06) ==
LOC: HO.ED 20:34 → HO.EDOVER 21:21 → HO.IMC 04-30 17:21
PROVIDERS: Admitting Provider Family Medicine; Emergency Provider Emergency Medicine; PCP Internal Medicine; Visit Provider Physician Assistant Medical
DX: G40.89 Other seizures (principal); R47.81 Slurred speech; R41.82 Altered mental status, unspecified; I48.91 Unspecified atrial fibrillation; R94.31 Abnormal electrocardiogram [ECG] [EKG]; Z03.818 Encounter for observation for suspected exposure to other biological agents ruled out; E11.9 Type 2 diabetes mellitus without complications; I10 Essential (primary) hypertension; G93.40 Encephalopathy, unspecified; Z86.73 Personal history of transient ischemic attack (TIA), and cerebral infarction without residual deficits; Z79.01 Long term (current) use of anticoagulants; Z79.84 Long term (current) use of oral hypoglycemic drugs; Z79.899 Other long term (current) drug therapy; Z87.891 Personal history of nicotine dependence
CPT/HCPCS: 36415; 70450; 80048; 80053; 80143; 80179; 80307; 81001; 82248; 82947; 83036; 83690; 83735; 84484; 85025; 85610; 87086; 87637; 92610; 93005; 95819; 96365; 96366; 97162; 97530; 99222; 99285; J3475

== ENCOUNTER → 2025-04-29 18:59 | Outpatient (BNV) | payer MEDICARE, SELFPAY | PROVIDERS: Admitting Provider Family Medicine; Emergency Provider Emergency Medicine; PCP Internal Medicine; Visit Provider Internal Medicine Cardiovascular Disease | DX: I48.91 Unspecified atrial fibrillation (principal) | CPT/HCPCS: 93010 ==

== ENCOUNTER 2025-04-29 20:40 | Outpatient (BNV) | payer MEDICARE, SELFPAY | END 2025-04-30 17:00 | PROVIDERS: Admitting Provider Family Medicine; Emergency Provider Emergency Medicine; PCP Internal Medicine; Visit Provider Psychiatry & Neurology Neurology | DX: R47.81 Slurred speech (principal) | CPT/HCPCS: 95819 ==

== ENCOUNTER → 2025-04-29 20:40 | Outpatient (BNV) | payer MEDICARE, SELFPAY | PROVIDERS: Admitting Provider Family Medicine; Emergency Provider Emergency Medicine; PCP Internal Medicine; Visit Provider Psychiatry & Neurology Neurology | DX: R47.81 Slurred speech (principal); R56.9 Unspecified convulsions | CPT/HCPCS: 99222 ==

== ENCOUNTER → 2025-04-29 20:40 | Outpatient (BNV) | payer MEDICARE, SELFPAY | PROVIDERS: Admitting Provider Family Medicine; Emergency Provider Emergency Medicine; PCP Internal Medicine; Visit Provider Family Medicine | DX: R56.9 Unspecified convulsions (principal); R47.81 Slurred speech | CPT/HCPCS: 99222; 99232 ==

== ENCOUNTER 2025-05-01 22:27 | Observation (INO) | payer MEDICARE, SELFPAY ==
--- NOTE | ~2025-05-01 | CT_ITS ---
CLINICAL HISTORY: worsening AMS CT head without contrast Comparison: CT/REG/SR - CT HEAD/BRAIN WO IV CON - 04/29/25 19:21 EST Findings: Examination is limited by patient motion. BRAIN: No acute infarct, hemorrhage, or mass effect. Scattered periventricular/deep white matter hypodensities, nonspecific, however may represent chronic microvascular ischemic disease. CSF SPACES: No hydrocephalus or effacement of basal cisterns. SKULL: No calvarial fracture. SINUSES: No significant mucosal thickening or effusion on limited views. ORBITS: Bilateral lens replacements. OTHER: Negative. IMPRESSION: 1. No acute intracranial findings assessing through significant motion artifact. This document has been electronically signed by: Sheila Bowden MD on 05/02/2025 01:03:12
[2025-05-01 22:39] VITALS: BP 131/84; BP 140/90; PULSE 105; PULSE 110; RESP 16; TEMP 36.4; O2SAT 100; O2SAT 98; BMI 19.4
--- NOTE | 2025-05-01 22:52 | ECG_ITS ---
Test Reason : ALTERED MENTAL STATUS Blood Pressure : */* mmHG Vent. Rate : 96 BPM Atrial Rate : * BPM P-R Int : * ms QRS Dur : 68 ms QT Int : 294 ms P-R-T Axes : * 75 -79 degrees QTcB Int : 371 ms Atrial fibrillation with occasional ventricular-paced complexes ST & T wave abnormality, consider inferior ischemia ST & T wave abnormality, consider anterolateral ischemia Abnormal ECG When compared with ECG of 29-Apr-2025 18:59, Vent. rate has increased by 16 bpm Referred By: Generic ED Physician Electronically Signed By: Eugenio Adams
[2025-05-01 22:54] LABS: Glucose, Whole Blood 143 mg/dL (60-115)
--- NOTE | 2025-05-01 23:00 | ED.GENADULT ---
HPI - General Adult General Chief complaint: Altered Mental Status Stated complaint: ams Time Seen by Provider: 05/01/25 22:31 Source: EMS Mode of arrival: EMS Limitations: altered mental status History of Present Illness ED Provider: Dr. Ana Lennon HPI narrative: Patient comes to the emergency room via ambulance. Patient was discharged a few hours ago from the hospital from the inpatient floor. Patient was here for evaluation for possible TIA versus seizure. According to the family, when the patient got home, he was altered, confused. At baseline patient is usually able to talk I have a normal conversation. Patient is unable to give any history. According to the patient's nurses, they to care of him a few days ago . Patient presented in the same way, and within a few hours, patient was completely awake, alert and oriented x3. According to EMS, the family reported that prior to hospital discharge, the patient was at baseline. Related Data Home Medications ?Medication ?Instructions ?Recorded ?Confirmed amlodipine 10 mg tablet 10 mg PO DAILY 10/14/23 04/29/25 lisinopril 10 mg tablet 10 mg PO DAILY 10/14/23 04/29/25 fentanyl 100 mcg/hr transdermal 100 mcg topical Q72H 12/01/24 04/29/25 patch levetiracetam 500 mg tablet 500 mg PO DAILY 12/01/24 04/29/25 cholecalciferol (vitamin D3) 25 25 mcg PO DAILY 04/29/25 04/29/25 mcg (1,000 unit) tablet cyclobenzaprine 10 mg tablet 10 mg PO TID PRN Muscle Spasm 04/29/25 04/29/25 Held on 05/01/25. Instructions: can cause confusion and sedation; hold off if able Previous Rx's ?Medication ?Instructions ?Recorded metformin 500 mg tablet 500 mg PO BIDWMEAL #60 tabs 10/18/23 omeprazole 20 mg capsule,delayed 20 mg PO BID@0630,1630 #0 caps 10/18/23 release apixaban 5 mg tablet (Eliquis) 5 mg PO BID #0 tabs 10/20/23 docusate sodium 100 mg capsule 100 mg PO BID #60 caps 12/04/24 magnesium hydroxide 400 mg/5 mL 30 ml PO DAILY PRN Constipation 12/04/24 oral suspension (Milk of Magnesia) #200 mL polyethylene glycol 3350 17 gram 17 g PO BID PRN constipation #120 12/04/24 oral powder packet ea finasteride 5 mg tablet 5 mg PO DAILY 90 days #90 tabs 01/16/25 terazosin 5 mg capsule 5 mg PO BEDTIME 90 days #90 caps 01/16/25 fentanyl 50 mcg/hr transdermal 1 patch transdermal Q72H 1 month 01/26/25 patch #5 ea levetiracetam 500 mg tablet 500 mg PO BID 90 days #180 tabs 05/01/25 Allergies Allergy/AdvReac Type Severity Reaction Status Date / Time Penicillins Allergy Intermediate Rash Verified 05/01/25 22:44 Review of Systems Review of Systems: Yes Unobtainable due to mental status [facility] Past Medical History Medical History Elevated bilirubin Fall BPH (benign prostatic hyperplasia) Stroke Afib Diabetes Essential hypertension History of pulmonary embolism Gallbladder sludge Surgical History Previous back surgery Family History Family History Father Heart attack Social History Social History Household Members: Family and Children Household Members Other:: Son Housing: House Do you presently have visiting nurse or other home services: No Alcohol intake: never Comment: IV Ofirmev infusing Patient Tobacco Use Status: Former Tobacco user Tobacco use type: Cigarette Years Smoked: 30 Smoked in Last 30 Days: No Second Hand Smoke Exposure: No Use of substances other than those prescribed or required for medical reasons: No Advance Directives: Yes Advance Directives on File: Yes Advance Directives Date on File: 12/23/24 Nutrition Risks: Anorexia, Difficulty swallowing and On aspiration precautions service: No Physical Exam ED Exam Exam: Appearance: Alert. Patient is very altered, trying to pull his lines, trying to get undressed, trying to get out of bed Eyes: Pupils equal, round and reactive to light. ENT: Pharynx normal. Neck: Normal inspection. Neck supple. No lymph nodes noted. No crepitus CVS: Normal heart rate and rhythm. Pulses normal. Normal S1 and S2 Respiratory: No respiratory distress. Breath sounds normal. No Wheezing. No rales Abdomen: Soft and nontender. No rigidity. No distention. Skin: Skin warm and dry. Normal skin color. Normal skin turgor. Extremities: No lower extremity edema. No Lacerations. No Rash Neuro: Moving all extremities Psych: Altered, a bit agitated Vital Signs: Vital Signs - 24 hr 05/01/25 22:39 05/01/25 23:34 05/02/25 00:37 Temperature 97.5 F Pulse Rate 105 H 94 70 Respiratory Rate 16 14 12 Blood Pressure 131/84 143/79 H 94/48 L Pulse Oximetry 100 97 97 Oxygen Delivery Method Room Air Room Air Room Air 05/02/25 01:11 Temperature Pulse Rate 70 Respiratory Rate 22 H Blood Pressure 120/66 Pulse Oximetry 98 Oxygen Delivery Method Room Air BMI result Body Mass Index 19.4 Course Course Course Narrative: Patient's was admitted here couple of days for the same reason. Patient has recurrence of symptoms. Last time that the patient was here, when patient arrived they took his fentanyl patch off, within a few hours patient returned to normal baseline. They took patient's fentanyl patches off. However, patient is still altered. CT scan pending Labs pending Medications Administered Generic Name Dose Route Start Last Admin Trade Name Freq PRN Reason Stop Dose Admin Lactated Ringer's 1,000 mls @ 80 mls/hr 05/02/25 03:30 05/02/25 03:57 Lr IVCONT 05/02/25 15:59 80 mls/hr .[id number] SHANNA Administration Discontinued Medications Generic Name Dose Route Start Last Admin Trade Name Freq PRN Reason Stop Dose Admin Levetiracetam 500 mg in 100 mls @ 400 mls/hr 05/02/25 01:05 05/02/25 01:36 Keppra IV 05/02/25 01:19 Infused ONCE ONE Infusion Medical Decision Making Medical Decision Making [facility] Narrative: My interpretation of labs: No significant abnormality in patient's hematology or chemistry CT scan of the head was done, however, patient moved a lot. There are no obvious abnormalities. The last time that the patient was here, he had a very similar presentation. This presentation does not quite seem to be a TIA or CVA. Interestingly, the last time that the patient was here, his urine toxicology was positive for fentanyl which he does get prescribed and has a patch but also for marijuana which is very unlikely that this is a false positive. While patient was in the hospital, patient's mental status remained fairly normal. However, once he got home, the patient's mental status change. When the patient's son arrived to the ED, he mentioned that the patient was agitated and he was trying to encourage his father to go to sleep. Seems that the patient's son is overwhelmed taking care of the father. It is possible that the patient's son may have given him THC gummies to help the patient sleep and be more relaxed? Also, the urinalysis was positive for benzodiazepines. Patient did not get any benzodiazepines by EMS or here in the emergency room. I reviewed patient's chart, does not seem that he got any benzos by the hospitalist team during his admission a few days ago. A few days ago, the patient tested negative for benzos. Overall, it is likely that patient has altered mental status was secondary to THC and benzodiazepines. I discussed the above-mentioned with our hospitalist Dr. Ferrari, patient being admitted. At this time, 06:33, patient's seems to be returning back to baseline, able to answer some questions. Patient's nurse asked him if he smokes marijuana or uses THC gummies. Patient said Absolutely not? Patient is now admitted. case management consult recommended. Differential Diagnosis Differential Diagnoses: The differential diagnosis associated with the presentation includes (Seizures, medication side-effect, sundowning) Admission/Observation Consideration of admission/observation: Escalation of care including admission/observation considered Consult Healthcare Provider Management of the patient was discussed with: Hospitalist Lab Data MDM Lab Attestation statement: I reviewed the patient's lab results. 05/02/25 05:25 05/02/25 05:25 Labs: Lab Results 05/01/25 05/01/25 05/01/25 Range/Units 22:49 23:07 23:14 WBC 6.4 (4.8-10.8) X10*3/uL RBC 4.69 (4.60-5.80) X10*6/uL Hgb 13.6 L (14.0-18.0) g/dl Hct 39.9 L (42.0-52.0) % MCV 85.1 (80.0-98.0) fL MCH 29.0 (27.0-33.0) pg MCHC 34.1 (31.0-36.0) g/dl RDW 14.3 (11.0-16.0) % Plt Count 181 (160-400) X10*3/uL MPV 9.5 (9.4-12.4) fL Immature Gran % (Auto) 0.2 (0.0-0.4) % Neut % (Auto) 62.1 (45-73) % Lymph % (Auto) 28.4 (20-40) % Lyon % (Auto) 8.5 (2-11) % Eos % (Auto) 0.3 (0-4) % Baso % (Auto) 0.5 (0-2) % Lymph # (Auto) 1.8 (1.2-4.9) X10*3/uL Lyon # (Auto) 0.6 (0.1-1.2) X10*3/uL Eos # (Auto) 0.0 (0.0-0.4) X10*3/uL Baso # (Auto) 0.0 (0.0-0.2) X10*3/uL Abs Immat Gran (auto) 0.01 (0.00-0.03) X10*3/uL Absolute Neuts (auto) 4.0 (2.0-8.3) x10*3/uL Absolute Nucleated RBC 0.000 (0.0-0.012) X10*3/uL Nucleated RBC % (auto) 0.0 (0.0-0.2) /100WBC Sodium 138 (135-145) mmol/L Potassium 4.1 (3.3-5.1) mmol/L Chloride 105 (96-108) mmol/L Carbon Dioxide 22 (22-29) mmol/L Anion Gap 15 (12-20) BUN 12 (9-16) mg/dL Creatinine 0.61 (0.5-1.4) mg/dL Estim Creat Clear Calc 66.5 Estimated GFR > 60 POC Glucose 143 H (60-115) mg/dL Random Glucose 154 H (60-115) mg/dL Lactic Acid 2.1 H* (0.5-2.0) mmol/L Lactic Acid F/U @ 2Hr (0.5-2.0) mmol/L Calcium 10.1 D (8.4-10.2) mg/dL Troponin I High Sens 3.1 (<3.5-35.0) ng/L Urine Color Yellow Urine Appearance Clear Urine pH 6.5 (5.0-9.0) Ur Specific [place] 1.015 (1.005-1.025) Urine Protein Negative (Neg-Trace) mg/dL Urine Glucose (UA) Negative (Negative) mg/dL Urine Ketones Negative (Negative) mg/dL Urine Blood Negative (Negative) Urine Nitrite Negative (Negative) Ur Leukocyte Esterase Small (1+) H (Negative) Urine RBC 0-2 (0-2) /HPF Urine WBC 11-20 H (0-5) /HPF Ur Squamous Epith Cells 0-2 (0-2) /HPF Urine Bacteria Trace (None Seen) Hyaline Casts 0-2 (0-2) /LPF Urine Opiates Screen Not Detected (Not Detect) Ur Buprenorphine Scrn Not Detected (Not Detect) ng/mL Ur Oxycodone Screen Not Detected (Not Detect) ng/mL Urine Methadone Screen Not Detected (Not Detect) ng/mL Urine Fentanyl Screen POSITIVE H (Not Detect) Ur Barbiturates Screen Not Detected (Not Detect) Ur Phencyclidine Scrn Not Detected (Not Detect) Ur Amphetamines Screen Not Detected (Not Detect) U Benzodiazepines Scrn POSITIVE H (Not Detect) Urine Cocaine Screen Not Detected (Not Detect) U Marijuana (THC) Screen POSITIVE H (Not Detect) Ethyl Alcohol < 10 mg/dL 05/02/25 Range/Units 01:17 WBC (4.8-10.8) X10*3/uL RBC (4.60-5.80) X10*6/uL Hgb (14.0-18.0) g/dl Hct (42.0-52.0) % MCV (80.0-98.0) fL MCH (27.0-33.0) pg MCHC (31.0-36.0) g/dl RDW (11.0-16.0) % Plt Count (160-400) X10*3/uL MPV (9.4-12.4) fL Immature Gran % (Auto) (0.0-0.4) % Neut % (Auto) (45-73) % Lymph % (Auto) (20-40) % Lyon % (Auto) (2-11) % Eos % (Auto) (0-4) % Baso % (Auto) (0-2) % Lymph # (Auto) (1.2-4.9) X10*3/uL Lyon # (Auto) (0.1-1.2) X10*3/uL Eos # (Auto) (0.0-0.4) X10*3/uL Baso # (Auto) (0.0-0.2) X10*3/uL Abs Immat Gran (auto) (0.00-0.03) X10*3/uL Absolute Neuts (auto) (2.0-8.3) x10*3/uL Absolute Nucleated RBC (0.0-0.012) X10*3/uL Nucleated RBC % (auto) (0.0-0.2) /100WBC Sodium (135-145) mmol/L Potassium (3.3-5.1) mmol/L Chloride (96-108) mmol/L Carbon Dioxide (22-29) mmol/L Anion Gap (12-20) BUN (9-16) mg/dL Creatinine (0.5-1.4) mg/dL Estim Creat Clear Calc Estimated GFR POC Glucose (60-115) mg/dL Random Glucose (60-115) mg/dL Lactic Acid (0.5-2.0) mmol/L Lactic Acid F/U @ 2Hr 1.1 (0.5-2.0) mmol/L Calcium (8.4-10.2) mg/dL Troponin I High Sens (<3.5-35.0) ng/L Urine Color Urine Appearance Urine pH (5.0-9.0) Ur Specific [place] (1.005-1.025) Urine Protein (Neg-Trace) mg/dL Urine Glucose (UA) (Negative) mg/dL Urine Ketones (Negative) mg/dL Urine Blood (Negative) Urine Nitrite (Negative) Ur Leukocyte Esterase (Negative) Urine RBC (0-2) /HPF Urine WBC (0-5) /HPF Ur Squamous Epith Cells (0-2) /HPF Urine Bacteria (None Seen) Hyaline Casts (0-2) /LPF Urine Opiates Screen (Not Detect) Ur Buprenorphine Scrn (Not Detect) ng/mL Ur Oxycodone Screen (Not Detect) ng/mL Urine Methadone Screen (Not Detect) ng/mL Urine Fentanyl Screen (Not Detect) Ur Barbiturates Screen (Not Detect) Ur Phencyclidine Scrn (Not Detect) Ur Amphetamines Screen (Not Detect) U Benzodiazepines Scrn (Not Detect) Urine Cocaine Screen (Not Detect) U Marijuana (THC) Screen (Not Detect) Ethyl Alcohol mg/dL Independent Interpretation I performed an independent interpretation of an: CT Scan Radiology Impression Discussion of test interpretation with radiology: I have reviewed the radiologist's reading. Radiologist Impression: BRAIN: No acute infarct, hemorrhage, or mass effect. Scattered periventricular/deep white matter hypodensities, nonspecific, however may represent chronic microvascular ischemic disease. CSF SPACES: No hydrocephalus or effacement of basal cisterns. SKULL: No calvarial fracture. SINUSES: No significant mucosal thickening or effusion on limited views. ORBITS: Bilateral lens replacements. OTHER: Negative. IMPRESSION: 1. No acute intracranial findings assessing through significant motion artifact. Critical Care Time Critical Care Time Critical Care Time: Yes Total Critical Care Time: 50 Attestation: I have personally provided critical care time. Time includes review of lab data, radiology results, discussion with consultants, and monitoring for potential decompensation. Intervention performed as documented. Discharge Plan Discharge Clinical Impression: Altered mental status, Drug side effects Patient Disposition: Admitted As Inpatient
[2025-05-01 23:11] LABS: Hematocrit 39.9 % (42.0-52.0); Hemoglobin 13.6 g/dl (14.0-18.0); Imm Gran Abs Auto 0.01 X10*3/uL (0.00-0.03); Imm Gran Pct Auto 0.2 % (0.0-0.4); Lymphocytes Absolute Auto 1.8 X10*3/uL (1.2-4.9); MANUAL DIFF FLAG NO; Mean Corpuscular HGB Conc 34.1 g/dl (31.0-36.0); Mean Corpuscular Hemoglobin 29.0 pg (27.0-33.0); Mean Corpuscular Volume 85.1 fL (80.0-98.0); NRBC Abs Auto 0.000 X10*3/uL (0.0-0.012); NRBC Pct Auto 0.0 /100WBC (0.0-0.2); Platelet Count 181 X10*3/uL (160-400); Red Blood Count 4.69 X10*6/uL (4.60-5.80); White Blood Count 6.4 X10*3/uL (4.8-10.8)
[2025-05-01 23:25] LABS: Anion Gap 15 (12-20); Blood Urea Nitrogen 12 mg/dL (9-16); Calcium 10.1 mg/dL (8.4-10.2); Carbon Dioxide 22 mmol/L (22-29); Chloride 105 mmol/L (96-108); Creatinine Clr Calc Pharmacy 66.5; Estimated Glomerular Filt Rate > 60; Potassium 4.1 mmol/L (3.3-5.1); Sodium 138 mmol/L (135-145)
--- NOTE | 2025-05-01 23:28 | PC.NURSE ---
straight cath'd patient to obtain urine sample, well tolerated.
[2025-05-01 23:29] LABS: Appearance Urine Clear; Glucose Urine UA Negative (Negative); PH 6.5 (5.0-9.0); Specific Gravity - Urine 1.015 (1.005-1.025); UMIC TRIGGER UACC YES
[2025-05-01 23:32] LABS: Troponin-I High Sensitivity 3.1 ng/L (<3.5-35.0)
[2025-05-01 23:34] VITALS: BP 143/79; PULSE 94; RESP 14; O2SAT 97
[2025-05-01 23:35] LABS: UACC Culture Trigger YES
--- OUTSIDE RECORDS SUMMARY | 2025-05-01 23:39 | XMS_ITS | Encounter Summary ---
Author Organization [facility] Address [address] [place] [id number] Phone Care Team Providers Care Consumer Insights Specialist Name Role Phone Erik Perkins DO Primary Care Provider [phone] Erik Perkins DO Unavailable Ander Cruz MD Unavailable [phone] Reason for Referral * MRI/CAT Scan - Closed Specialty Diagnoses / Procedures Referred By Pablo bob Referred To Contact Radiology Diagnoses Nonintractable headache, unspecified chronicity pattern, unspecified headache type Procedures CT Head Erik Perkins DO Phone: tel: fax: [email or web address] Referral ID Status Reason Start Date Expiration Date Visits Re quested Visits Authorized [id number] Closed 06/06/2023 1 1 Encounter Details Date Type Department Care Team ([facility] st Contact Info) Description 06/06/2023 Transcribe Orders Virtual Department [address] [place] [address] Erik Perkins DO [address] [facility] [place] [address] [place] [address] [email or web address] Nonintractable headache, unspecified chronicity pattern, unspecified headache [...] clinician's provided indication for this examination in [facility]: Outside Radiology Order; HEADACHE TECHNIQUE: Multidetector-row [...] clinician's provided indication for this examination in [facility]:Outside Radiology Order; HEADACHE TECHNIQUE: Multidetector-row CT [...] sinussuggestive of chronic sinusitis. Erik Perkins DO [facility] HEAD/NECK Final Result documented in this encounter Visit Diagnoses Diagnosis Nonintractable headache, unspecified chronicity pattern, unspecified headache type- Primary Nonintractable headache, unspecified chronicity pattern, unspecified headache type documented in this encounter Care Teams Consumer Insights Specialist Relationship Specialty Start Date End Date Erik Perkins DO [email or web address] PCP - General Internal Medicine 05/21/20 Erik Perkins DO Internal Medicine 05/21/20 Ander Cruz MD [address] [place] [id number] [email or web address] Hematology and Oncology 05/15/17 documented as of this encounter Additional Source Comments The information contained in this document represents components of the legal health record. It is not the complete legal health record.[facility]
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
--- OUTSIDE RECORDS SUMMARY | 2025-05-01 23:39 | XMS_ITS | Encounter Summary ---
Author Organization [facility] Address [address] [facility] [facility] [address] [place] [address] Phone Care Team Providers Care Duplex Trimmer Name Role Phone Erik Perkins DO Primary Care Provider [phone] SuzyErik mojica DO Unavailable Ander Cruz MD Unavailable [phone] Encounter Details Date Type Department Care Team (Late st Contact Info) Description 09/23/2023 Procedure Pass [facility], Ct Scan - [place] [facility] [address] [place] [address] Social History Tobacco Use Types Packs/Day Years [...] on filedocumented in this encounter Care Teams Duplex Trimmer Relationship Specialty Start Date End Date Erik Perkins DO PCP - General Internal Medicine 05/21/20 Erik Perkins DO Internal Medicine 05/21/20 Ander Cruz MD [address] [place] [address] Hematology and Oncology 05/15/17 documented as of this encounter Additional Source Comments The information contained in this document represents components of the legal health record. It is not the complete legal health record.[facility]
--- OUTSIDE RECORDS SUMMARY | 2025-05-01 23:39 | XMS_ITS | Encounter Summary ---
Author Organization [facility] Address [address] [facility] [address] [place] [address] Phone Care Team Providers Care Flight Dispatcher Name Role Phone Erik Perkins DO Primary Care Provider [phone] Erik Perkins DO Unavailable Ander Cruz MD Unavailable [phone] Encounter Details Date Type Department Care Team (Latest Contact Info) Description 12/16/2024 Transcribe Orders Virtual Department [address] [place] [address] Arabella Ayala PA [address] [place] [address] Solitary pulmonary nodule (Primary Dx) Social History [...] Primary documented in this encounter Care Teams Flight Dispatcher Relationship Specialty Start Date End Date Erik Perkins DO PCP - General Internal Medicine 05/21/20 Erik Perkins DO [email or web address] Internal Medicine 05/21/20 Ander Cruz MD [address] [place] [address] [email or web address] Hematology and Oncology 05/15/17 documented as of this encounter Additional Source Comments The information contained in this document represents components of the legal health record. It is not the complete legal health record.[facility]
--- OUTSIDE RECORDS SUMMARY | 2025-05-01 23:39 | XMS_ITS | Continuity of Care Document ---
Author Organization [place] [facility], [facility] Address [address] [place] [address] Assessment Encounter Date Assessment Date Assessment LastModified by Organization Details LastModified Time 04/21/2025 04/21/2025 [id number] [place] [id number] (HEALTH CLINICIAN) MDM MODERATE MUST MEET 2 OUT OF [...] Lab hemoglobin A1c, QN, blood 2024 025 [facility], [address] [place] [address], [address], 12:26:01 CMP, serum or plasma 2024 025 [facility], [address] [place] [address], [address], 5 12:26:01 CBC w/ auto diff 2024 025 [facility], [address] [place] [address], [address], 5 15:30:33 Referral None recorded. Procedures None recorded. Surgeries None recorded. Imaging None recorded. Medication Orders None recorded. Patient TargetsNo targets recorded. Patient Instructions Encounter Date Encounter Id Patient Instructions Last Modified By Organization Details Last Modified Time 04/21/2025 [id number] pulse oximetry* ELIAN Not available 04/21/2025 15:36:02 Reason for Referral None Reported. Results Created Date Observation Date Name Description Value Unit Range Abnormal Flag Note LastModifiedBy Organization Detail LastModifiedTime Result Notes None recorded. Problems Name Problem SNOMED Code Status Onset Date Resolution Date Notes Provider Name and Address Organization Details Recorded Time Type 2 diabetes mellitus 91313174 Active 2017 Not Available [facility] 3 11:56:21 Diverticu lar disease 654435160 Active 2017 Not Available [facility] 3 11:56:21 Migraine without aura 69435966 Active 2017 Not Available [facility] 3 11:56:21 Essential hypertens ion 95994660 Active 2017 Not Available [facility] 3 11:56:21 Squamous cell carcinoma of skin 552818416 Active 2017 face Not Available [facility] 3 11:56:21 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 46017329 Active 2017 Not Available [facility] 3 11:56:21 Post-lami nectomy syndrome 07463726 Active 2017 Not Available [facility] 3 11:56:21 Myofascia l pain syndrome 414196967 Active 2017 Not Available [facility] 3 11:56:21 Radicular pain 35144083 Active 2017 lumbar Not Available [facility] 3 11:56:21 Obstructi ve sleep apnea syndrome 36071563 Active 2017 on CPAP Not Available [facility] 3 11:56:22 Hyperchol esterolem ia 07615275 Active 2017 Not Available [facility] 3 11:56:21 Cervico-o ccipital neuralgia 85878580 Active 2017 Not Available [facility] 3 11:56:21 Chronic atrial fibrillat ion 425846870 Active 2019 Not Available [facility] 3 11:56:21 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 2019 Not Available [facility] 3 11:56:21 Atrial fibrillat ion 42603696 Active 2021 Not Available [facility] 3 11:56:21 Acquired right hallux valgus 15093869962 4106 Active 2021 Not Available [facility] 3 11:56:21 Chronic pain 97059033 Active 2021 Not Available [facility] 3 11:56:22 Diabetic foot ulcer 412507641 Active 2021 Not Available [facility] 3 11:56:21 Actinic keratosis 329967531 Active 2022 Not Available [facility] 3 11:56:21 Intractab le nausea and vomiting 483174895 Active 2022 Erik Perkins DO [address] [place] [address], [address], [facility] 3 14:26:39 Diffuse spasm of esophagus 06358445 Active 2023 Erik Perkins DO [address] [place] [address], [address], [facility] 4 13:57:14 Headache 83441563 Active 2023 Erik Perkins DO [address] [place] [address], [address], [facility] 4 14:01:14 Impacted cerumen of bilateral ears 15821588854 88110 Active 2023 JANY LONG [address] [place], [address], [facility] 4 15:18:08 Cerebrova scular accident 680432299 Active 2023 JANY LONG [address] [place] [address], [address], [facility] 4 13:37:07 Cholecyst itis 94702645 Active 2023 JANY LONG [address] [place] [address], [address], 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 4 13:40:30 Depressiv e disorder 71359198 Active 2023 JANY LONG [address] [place] [address], [address], [facility] 4 13:41:00 Seizure disorder 513427272 Active 2023 JANY LONG [address] [place] [address], [address], 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 4 13:50:37 Chronic constipat ion 028711387 Active 2024 JANY LONG [address] [place] [address], [address], [facility] 5 13:11:49 Biliary sludge 40070324 Active 2024 JANY LONG [address] [place] [address], [address], [facility] 5 13:12:05 Common bile duct calculus 549303848 Active 2024 JANY LONG [address] [place] [address], [address], [facility] 13:12:19 Nodule of lung 774579429 Active 2024 JANY LONG [address] [place] [address], [address], [facility] 5 13:12:59 Retention of urine 692314429 Active 2024 JANY LONG [address] [place] [address], [address], [facility] 15:42:01 Recurrent urinary tract infection 281758861 Active 2024 JANY LONG [address] [place] [address], [address], [facility] 09:02:20 Complicat ion of urinary catheter 572098326 Active 2024 JANY LONG [address] [place] [address], [address], [facility] 09:02:41 Recurrent falls 765891529 Active 2024 JANY LONG [address] [place] [address], [address], [facility] 09:02:57 Spasm 50061287 Active 2024 Erik Perkins DO [address] [place] [address], [address], [facility] 13:48:01 Problem Notes None recorded. Procedures Surgical History Date Name Laterality Status Provider Name and Address Organization Details Recorded Time 08/21/19 24 Cerumen Removal completed JANY LONG [address] [place] [address], [address], [facility] 08/21/2023 15:18:01 04/19/20 18 Family Practice Trigger Point Injection completed Erik Perkins DO [address] [place] [address], [address], [facility] 04/19/2018 11:50:49 Imaging Results None recorded. Procedure Notes None recorded. Medical Equipment None Reported. Allergies Allergen ID Allergen Name Allergen Category Reaction Reaction Severity Criticality Documentation Date Start Date Code Code System Note Provider Name and Address Organization Details Recorded Time 75348 Product containin g penicilli n (product) medicatio n Not available Not available Not available 04/11/20252018 07129 8001 SNOMED Not Available elian - External Data Service - prod 16:13:48 728 penicilli n V Not available hives Not available Not available 08/08/2017 7984 RxNorm Leigh thomas [place] - [facility] 8 11:55:06 Medications Name [...] 04/21/2025 90 % Martine Styles O [address] [facility], [place], [address], [facility] 04/21/2025 15:29:13 Date Recorded Body height Body mass index (BMI) Body weight Heart rate Systolic And Diastolic Provider Name and Address Organization Details Last Updated DateTime 04/21/2025 160.02 cm 21.4 kg/m2 59040.68 g 98 /min 126/64 mm[Hg] NAHEED BARR [facility] 04/21/2025 15:11:00 Social History Question [...] virus, quadrivalent, preservative 9 completed Not Available [facility] 05/31/2019 02:46:30 COVID-19, mRNA, LNP-S, PF, 100 mcg/0.5mL dose or 50 mcg/0.25mL dose 1 completed Oma thomas [facility] 04/25/2022 11:16:53 COVID-19, mRNA, LNP-S, PF, 30 mcg/0.3 mL dose, timothy-sucrose 2 completed Oma thomas [facility] 04/25/2022 11:17:27 influenza, unspecified formulation 2 completed Oma thomas [facility] 04/25/2022 11:17:46 Influenza, split virus, quadrivalent, preservative 0 completed Jennie thomas [facility] 04/12/2020 08:10:10 COVID-19, mRNA, LNP-S, PF, 100 mcg/0.5mL dose or 50 mcg/0.25mL dose 1 completed Leigh thomas [facility] 07/23/2020 14:52:18 COVID-19, mRNA, LNP-S, PF, 100 mcg/0.5mL dose or 50 mcg/0.25mL dose 1 completed Leigh thomas [facility] 07/23/2020 14:52:26 Past Encounters Encounter ID Performer Location Encounter Start Date Encounter Closed Date Diagnosis/Indication Diagnosis SNOMED-CT Code Diagnosis ICD10 Code Diagnosis IMO Codes Diagnosis Note [id number] Erik Perkins [facility] [address] [facility] [address] 04/21/2025 14:55:37 04/21/2025 15:47:41 Depression screening 342845586 Z13.31 neg Essential hypertension 28700476 I10 overall stable saloni w bp and will cont current med Atrial fibrillation 4943 6004 I48.0 stable no issues Type 2 be betes mellitus 15521990 E11.9 a1c is pending no rece nt lab now at 6.1 he was 6.3 again was 6.3 and prior was 6.7 and prior was 6.8 he was 7.1 relates not always following diet will have him cont to follow as needed and rechk 3 mo he cont to take his cannabis without incident sometimes tiouywen2z is stable at 7.1 Health Concerns Section Related Observation LastModified by Organization Detai ls LastModified Time None Recorded Concern Status LastModified by Organization Details LastModified Time None Recorded Payers Encounter Date Sequence Insurance Name Policy Number Policy Daly Covered Member ID Daly Member ID Guarantor Name 04/21/2025 1 [place] [employer] Ferny Mckeon [id number] Ferny Mckeon 04/21/2025 2 [place] [id number] Ferny Mckeon [id number] Ferny Mckeon
--- OUTSIDE RECORDS SUMMARY | 2025-05-01 23:39 | XMS_ITS | Data Portability ---
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) MDM MODERATE MUST MEET 2 OUT OF [...] Lab hemoglobin A1c, QN, blood 2024 025 [facility], [address] [place] [address], [address], 5 12:26:01 CMP, serum or plasma 2024 025 [facility], [address] [place] [address], [address], 5 12:26:01 CBC w/ auto diff 2024 025 [facility], [address] [place] [address], [address], 5 15:30:33 HbA1c (hemoglobi n A1c), blood 2024 025 [facility], [address] [place] [address], [address], 5 11:55:58 CMP, serum or plasma 2024 025 [facility], [address] [place] [address], [address], 5 14:01:39 CBC 2024 025 [facility], [address] [place] [address], [address], 5 11:55:58 microalbum in, urine 2024 025 [facility], [address] [place] [address], [address], 5 11:55:58 CBC w/ auto diff 2023 024 [facility], [address] [place] [address], [address], 4 13:52:52 CMP, serum or plasma 2023 [facility], [address] [place] [address], [place], [address], 4 13:52:52 TSH + free T4, serum 2023 [facility], [address] [place] [address], [place], [address], 4 13:52:52 T3, free, serum or plasma 2023 [facility], [address] [place] [address], [place], [address], 4 13:52:52 Referral gastroente rologist referral 2024 025 [facility], [address] [place] [address] [address] [place] [address] [address], [place], [address], 5 08:27:21 Procedures None recorded. Surgeries None recorded. Imaging CT, chest, w/o contrast 2024 025 [facility], [address] [place] [address], [address], 5 08:27:03 Medication Orders atorvastat in 80 mg tablet 2023 024 [facility]23171, [address] [place] [address], [place], [id number], 4 13:45:22 metformin 500 mg tablet 2023 024 [facility]88097, [address] [place] [address], [place], [id number], 4 13:46:04 levetirace raymond 500 mg tablet 2023 024 [facility] #81946, [address], [place], [id number], 4 13:45:24 tamsulosin 0.4 mg capsule 2023 024 [facility] #84810, [address] [place] [address], [place], [id number], 4 13:45:27 amlodipine 10 mg tablet 2023 024 [facility] #66043, [address], [place], [id number], 4 13:45:28 lisinopril 10 mg tablet 2023 024 [facility] #20558, [address], [place], [id number], 4 13:46:48 mirtazapin e 15 mg tablet 2023 024 [facility] #39664, [address], [place], [id number], 4 13:45:22 omeprazole 20 mg capsule,de layed release 2023 [facility] #02862, [address], [place], [id number], 4 13:45:26 Patient TargetsNo targets recorded. Patient Instructions Encounter Date Encounter Id Patient Instructions Last Modified By Organization Details Last Modified Time 04/21/2025 [id number] pulse oximetry* ELIAN Not available 04/21/2025 15:36:02 Reason for Referral Doctor Of Podiatry Referral for Chronic constipation ongoing issues with constipation Referring Physician: Arabella Ayala, Internal Medicine, Encounter Date: 12/15/2024 Results Created Date Observation Date Name Description Value Unit Range Abnormal Flag Note LastModifiedBy Organization Detail LastModifiedTime 10/22/19 24 10/19/2023 XR, chest , 2 view No observ ation record ed. [address] (Medical Records) [address] [facility], [address], 10/22/2023 13:44:41 10/22/19 24 10/19/2023 XR, chest , w/ fluor oscop y No observ ation record ed. [address] (Medical Records) [address] [place], [address], 10/22/2023 13:45:12 12/01/19 25 11/30/2024 CT, abdom en + pelvi s, w/ contr ast No observ ation record ed. [address] (Medical Records) [address] [place], [address], 12/01/2024 08:34:44 12/02/1911/30/2024 US, abdom en, limit ed No observ ation record ed. [address] (Medical Records) [address] [place], [address], 12/01/2024 08:35:26 12/06/19 25 12/04/2024 CT, angio gram, head + neck, w/wo contr ast No observ ation record ed. [email or web address] [place] [address] (Medical Records) [address] [place], [address], 12/05/2024 09:07:47 12/06/19 25 12/04/2024 XR, humer us No observ ation record ed. [facility] (Medical Records) [address] [place], [address], 12/05/2024 09:09:36 12/06/19 25 12/04/2024 XR, shoul lyn No observ ation record ed. [facility] (Medical Records) [address] [place], [address], 12/05/2024 09:23:06 12/06/1912/04/2024 XR, shoul lyn No observ ation record ed. [email or web address] [facility] (Medical Records) [address] [place], [address], 12/05/2024 09:09:51 01/24/2001/23/2025 CT, head + brain , w/o contr ast No observ ation record ed. [email or web address] [facility] (Medical Records) [address] [place], [address], 01/23/2025 09:00:43 01/24/2001/23/2025 CT, chest , w/o contr ast No observ ation record ed. [email or web address] (Medical Records) [address] [place], [address], 01/23/2025 09:00:53 01/24/2001/23/2025 CT, cervi michelle spine , w/o contr ast No observ ation record ed. [email or web address] [facility] (Medical Records) [address] [place], [address], 01/23/2025 09:01:06 Result Notes None recorded. Problems Name Problem SNOMED Code Status Onset Date Resolution Date Notes Provider Name and Address Organization Details Recorded Time Type 2 diabetes mellitus 07863820 Active 2017 Not Available [facility] 3 11:56:21 Diverticu lar disease 556082393 Active 2017 Not Available [facility] 3 11:56:21 Migraine without aura 73127666 Active 2017 Not Available [facility] 3 11:56:21 Essential hypertens ion 19304159 Active 2017 Not Available [facility] 3 11:56:21 Squamous cell carcinoma of skin 480652911 Active 2017 face Not Available [facility] 3 11:56:21 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 88820753 Active 2017 Not Available [facility] 3 11:56:21 Post-lami nectomy syndrome 19951432 Active 2017 Not Available [facility] 3 11:56:21 Myofascia l pain syndrome 851582175 Active 2017 Not Available [facility] 3 11:56:21 Radicular pain 30979441 Active 2017 lumbar Not Available [facility] 3 11:56:21 Obstructi ve sleep apnea syndrome 03423220 Active 2017 on CPAP Not Available [facility] 3 11:56:22 Hyperchol esterolem ia 52217748 Active 2017 Not Available [facility] 3 11:56:21 Cervico-o ccipital neuralgia 29454103 Active 2017 Not Available [facility] 3 11:56:21 Chronic atrial fibrillat ion 633286118 Active 2019 Not Available [facility] 3 11:56:21 Therapeut ic opioid induced constipat ion 30984400882 9102 Active 2019 Not Available [facility] 3 11:56:21 Atrial fibrillat ion 52131421 Active 2021 Not Available [facility] 3 11:56:21 Acquired right hallux valgus 30922575019 4106 Active 2021 Not Available [facility] 3 11:56:21 Chronic pain 49198302 Active 2021 Not Available [facility] 3 11:56:22 Diabetic foot ulcer 239873810 Active 2021 Not Available [facility] 3 11:56:21 Actinic keratosis 356810455 Active 2022 Not Available [facility] 3 11:56:21 Intractab le nausea and vomiting 997607147 Active 2022 Erik Perkins, DO [address] [facility], [place], [address], [facility] 3 14:26:39 Diffuse spasm of esophagus 55860833 Active 2023 Erik Perkins, DO [address] [place] [address], [address], [facility] 4 13:57:14 Headache 38510645 Active 2023 Erik Perkins, DO [address] [place] [address], [address], [facility] 4 14:01:14 Impacted cerumen of bilateral ears 58945802271 23521 Active 2023 JANY LONG [address] [place] [address], [address], [facility] 4 15:18:08 Cerebrova scular accident 199489067 Active 2023 JANY LONG [address] [place] [address], [address], [facility] 4 13:37:07 Cholecyst itis 91174329 Active 2023 JANY LONG [address] [place] [address], [address], [facility] 4 13:39:08 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 631204775 Active 2023 JANY LONG [address] [place] [address], [address], [facility] 4 13:40:30 Depressiv e disorder 31492544 Active 2023 JANY LONG [address] [place] [address], [address], [facility] 4 13:41:00 Seizure disorder 459315581 Active 2023 JANY LONG [address] [place] [address], [address], [facility] 4 13:42:42 Subclinic al hyperthyr oidism 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 Active 20[address]NOG [address] [place] [address], [address], [facility] 4 13:50:37 Chronic constipat ion 329802983 Active 2024 JANY LONG [address] [place], [address], [facility] 5 13:11:49 Biliary sludge 61397670 Active 2024 JANY LONG [address] [place] [address], [address], [facility] 5 13:12:05 Common bile duct calculus 806145406 Active 2024 JANY LONG [address] [place] [address], [address], [facility] 5 13:12:19 Nodule of lung 722247764 Active 2024 JANY LONG [address] [place] [address], [address], [facility] 5 13:12:59 Retention of urine 522954158 Active 2024 JANY LONG [address] [place] [address], [address], [facility] 5 15:42:01 Recurrent urinary tract infection 178376137 Active 2024 JANY LONG [address] [place] [address], [address], [facility] 5 09:02:20 Complicat ion of urinary catheter 877859060 Active 2024 JANY LONG [address] [place] [address], [address], [facility] 5 09:02:41 Recurrent falls 811898708 Active 2024 JANY LONG [address] [place] [address], [address], [facility] 5 09:02:57 Spasm 33852319 Active 2024 Erik Perkins DO [address] [place], [address], [facility] 5 13:48:01 Problem Notes None recorded. Procedures Surgical History Date Name Laterality Status Provider Name and Address Organization Details Recorded Time 08/21/19 24 Cerumen Removal completed JANY LONG [address] [place], [address], [facility] 08/21/2023 15:18:01 04/19/20 18 Family Practice Trigger Point Injection completed Erik Perkins, DO [address] [place], [address], [facility] 04/19/2018 11:50:49 Imaging Results None recorded. Procedure Notes None recorded. Medical Equipment None Reported. Allergies Allergen ID Allergen Name Allergen Category Reaction Reaction Severity Criticality Documentation Date Start Date Code Code System Note Provider Name and Address Organization Details Recorded Time 05848 Product containin g penicilli n (product) medicatio n Not available Not available Not available 04/11/20252018 25470 8001 SNOMED Not Available elian - External Data [employer] - prod 5 16:13:48 728 penicilli n V Not available hives Not available Not available 08/08/2017 7984 RxNorm Leigh Ruvalcaba [facility] 8 11:55:06 Medications Name Sig Start [...] cm 108 /min 97 % 25.7 kg/m2 26566.8 9 g 150/82 mm[Hg] Noé Galvan [facility] 4 13:28:57 Date Recorded Body height Heart rate Oxygen saturation Systolic And Diastolic Provider Name and Address Organization Details Last Updated DateTime 12/15/2024 160.02 cm 74 /min 97 % 124/78 mm[Hg] Lacy Mckeon [facility] 12/15/2024 15:09:24 Date Recorded Oxygen saturation Provider Name and Address Organization Details Last Updated DateTime 04/21/2025 90 % Martine Styles O [address] [place], [address], [facility] 04/21/2025 15:29:13 Date Recorded Body height Body mass index (BMI) Body weight Heart rate Systolic And Diastolic Provider Name and Address Organization Details Last Updated DateTime 04/21/2025 160.02 cm 21.4 kg/m2 67410.68 g 98 /min 126/64 mm[Hg] NAHEED BARR [facility] 04/21/2025 15:11:00 Social History Question Answer Notes LastModified by Organizat ion Details LastModified Time Tobacco Smoking Status Former Smoker Not Available [facility] 03/16/2020 03:36:24 What Was The Date Of Your Most Recent Tobacco Screening? 04/21/2025 [email or web address] Information not available 04/21/2025 Sex: Unknown Functional Status None recorded. Mental Status None recorded. Family History Nothing Reported. Medical History No medical history recorded. Immunizations Vaccine Type Date Status Note Provider Nam e and Address Organization Details Recorded Time Influenza, split virus, quadrivalent, preservative 9 completed Not Available [facility] 05/31/2019 02:46:30 COVID-19, mRNA, LNP-S, PF, 100 mcg/0.5mL dose or 50 mcg/0.25mL dose 1 completed Oma thomas [facility] 04/25/2022 11:16:53 COVID-19, mRNA, LNP-S, PF, 30 mcg/0.3 mL dose, timothy-sucrose 2 completed Oma Montano martha [facility] 04/25/2022 11:17:27 influenza, unspecified formulation 2 completed Oma Montano martha [facility] 04/25/2022 11:17:46 Influenza, split virus, quadrivalent, preservative 0 completed [facility] 04/12/2020 08:10:10 COVID-19, mRNA, LNP-S, PF, 100 mcg/0.5mL dose or 50 mcg/0.25mL dose 1 completed Leigh Ruvalcaba martha [facility] 07/23/2020 14:52:18 COVID-19, mRNA, LNP-S, PF, 100 mcg/0.5mL dose or 50 mcg/0.25mL dose 1 completed Leigh Ruvalcaba [facility] 07/23/2020 14:52:26 Past Encounters Encounter ID Performer Location Encounter Start Date Encounter Closed Date Diagnosis/Indication Diagnosis SNOMED-CT Code Diagnosis ICD10 Code Diagnosis IMO Codes Diagnosis Note [id number] Erik Perkins [facility] [address] [facility],[place] [address] 11/26/2017 12:11:50 11/26/2017 14:53:25 Degeneration of lumbar intervertebral disc 28354105 M51.36 baseline no change this is the one major problem in his life fentanyl not as effective as in past Type 2 be betes mellitus 32340587 E11.9 here for recheck jayjay williamson will need to cut back by 5 units to 25 u qhs will follow and cont to decrease insulin as noted Essential hypertension 44904418 I10 [place] [id number] Erik Perkins [facility] [address] [facility],[employer] [place] [address] 04/15/2018 13:28:48 04/15/2018 15:01:45 Type 2 diabetes mellitus 13356708 E11.9 a1c is 5.4 again and he is still doing great after cutting down dose last visit Essential hypertension 07486301 I10 overall stable saloni w bp Cervico-oc cipital neuralgia 41566777 M54.81 will arrange to get a cortisone inject trigger [id number] Erik Perkins [facility] [address] [facility] [address] [place] [address] 04/19/2018 11:19:59 04/22/2018 11:19:25 Cervico-occipital neuralgia 30110210 M54.81 cortisone inject trigger point Degenerati on of lumbar intervertebral disc 76503378 M51.36 baseline no change this is the one major problem in his life fentanyl not as effective as in past [id number] Erik Perkins [facility] [address] [facility] [address] [place] [address] 07/24/2018 14:07:08 07/24/2018 14:38:11 Essential hypertension 54251689 I10 overall stable saloni w bp and will cont current med Type 2 be betes mellitus 61069282 E11.9 a1c is 6.1 again and he is still doing great after cutting down dose last visit was 5.4 [id number] Erik Perkins DO [facility] [address] [facility] [address] [place] [address] 12/11/2018 15:47:06 12/11/2018 16:44:55 Type 2 diabetes mellitus 79961299 E11.9 a1c is 6.3 which is amazing given the length of time he is not taking care of himself relates not following diet will have him cont to follow as needed and rechk 3 mo Essential hypertension 93979785 I10 overall stable saloni w bp and will cont current med Degenerati on of lumbar intervertebral disc 29840517 M51.36 baseline no change this is the one major problem in his life fentanyl not as effective as in past Hypercholesterolemia 136 36049 E78.00 will need rechk [id number] Erik Perkins [facility] [address] [facility] [address] [place] [address] 03/05/2019 14:22:42 03/05/2019 15:13:47 Essential hypertension 10705167 I10 overall stable saloni w bp and will cont current med Type 2 be betes mellitus 59238788 E11.9 a1c is 6.9 was 6.3 and he admits to not taking care feels he is lonesome relates not following diet will have him cont to follow as needed and rechk 3 mo Depressive disorder 3548 9007 F32.9 Administra tion of influenza vaccine 93789692 Z23 [id number] Erik Perkins DO [facility] [address] [facility],[place] [address] 07/21/2019 14:06:12 07/21/2019 14:31:50 Type 2 diabetes mellitus 24091078 E11.9 a1c is 6.9 was 6.9 was 6.3 and he admits to not taking care he still feels he is lonesome relates not following diet will have him cont to follow as needed and rechk 3 mo he did overtake his cannabis the other month and he needed to be eval in the ER was released without incident Essential hypertension 70486590 I10 overall stable saloni w bp and will cont current med Active or passive immunization 214599255 Z23 Chronic at rial fibrillation 304970217 I48.20 seems controlled with addition of xarelto Therapeuti c opioid induced constipation 6354700397 37048 T40.2X5A [id number] Erik Perkins DO [facility] [address] [facility],[place] [address] 11/18/2019 15:38:10 11/18/2019 16:14:38 Essential hypertension 18842501 I10 overall stable saloni w bp and will cont current med Type 2 be betes mellitus 43535262 E11.9 a1c is 6.6 and was 6.9 [...] incident Degenerati on of lumbar intervertebral disc 77145501 M51.36 baseline no change this is the one major problem in his life but feels he may be even worse fentanyl not as effective as in past Chronic at rial fibrillation 599648710 I48.20 seems controlled with addition of xarelto Tendinitis of left hand 9076773626 1376912 M67.844 fairly prominent swelling and is quite painful [id number] Erik Perkins DO [facility] [address] [facility],[place] [address] 03/17/2020 15:44:31 03/17/2020 16:15:14 Type 2 diabetes mellitus 99756104 E11.9 a1c is6.6.6 and previous was 6.6 [...] ER was released without incident Essential hypertension 24999402 I10 overall stable saloni w bp and will cont current med Chronic at rial fibrillation 502575651 I48.20 seems controlled with addition of xarelto Infection of tooth 32944 8007 K04.7 will tx and see if we can calm it down [id number] Erik Perkins, [facility] [address] [facility],[place] [address] 07/23/2020 14:41:09 07/23/2020 15:13:41 Chronic atrial fibrillation 804084344 I48.20 seems controlled with addition of xarelto Essential hypertension 26290120 I10 overall stable saloni w bp and will cont current med Type 2 be betes mellitus 97930535 E11.9 a1c is 6.9 and was 6.6 [...] this Trigger fi nger of left hand 1951808425 6506884 M65.30 4th finger and others very painful and he will fet back to me when ready to see dr saldaña [id number] Erik Perkins [facility] [address] [facility],[place] [address] 12/07/2020 13:33:14 12/07/2020 14:01:26 Type 2 diabetes mellitus 84386326 E11.9 a1c is 6.8 and before was 6.9 and was 6.6 and previous was 6.6 and was 6.9 was 6.9 was 6.3 and he admits to not taking care he still feels he is lonesome relates not always following diet will have him cont to follow as needed and rechk 3 mo he cont to take his cannabis without incident sometimes [id number] is stable Essential hypertension 96972338 I10 overall stable saloni w bp and will cont current med Chronic at rial fibrillation 637517616 I48.20 seems controlled with addition of xarelto Atypical chest pain 1025 14736 R07.89 im not sure what this is there is no pattern it is not reproducib le, lasts less than a second and had stopped since that one day . [id number] Erik Perkins [facility] [address] [facility],[place] [address] 01/21/2021 14:10:36 01/21/2021 15:05:16 Chronic atrial fibrillation 394968988 I48.20 seems controlled with addition of xarelto Essential hypertension 31395847 I10 overall stable saloni w bp and will cont current med [id number] Erik Perkins [facility] [address] [facility],[place] [address] 04/29/2021 08:37:32 04/29/2021 15:34:00 Chronic atrial fibrillation 176908959 I48.20 seems controlled with addition of xarelto no prob with med Degenerati on of lumbar intervertebral disc 63856851 M51.36 baseline no change this is the one major problem in his life but feels he may be even worse fentanyl not as effective as in past back is slowly progressin g making him less mobile Essential hypertension 55428411 I10 overall stable saloni w bp and will cont current med Type 2 be betes mellitus 21473866 E11.9 a1c is now 7.1 was 6.8 [...] to take his cannabis without incident sometimes [id number] is stable at 7.1 [id number] Erik Perkins [facility] [address] [facility],[place] [address] 08/03/2021 13:48:55 08/05/2021 10:43:56 Hypercholesterolemia 64847991 E78.00 will need rechk Type 2 be betes mellitus 53887261 E11.9 a1c is now 6.8 he was [...] to take his cannabis without incident sometimes qycymipa6a is stable at 7.1 Essential hypertension 01821364 I10 overall stable saloni w bp and will cont current med Chronic at rial fibrillation 943934461 I48.20 seems controlled with addition of xarelto no prob with med [id number] [facility] [address] [facility],[place] [address] 12/14/2021 16:24:00 12/14/2021 16:50:44 Hypercholesterolemia 54566589 E78.00 will need rechk Type 2 be betes mellitus 13827440 E11.9 a1c is now 6.7 and prior [...] to take his cannabis without incident sometimes rkzxvrmv0l is stable at 7.1 Essential hypertension 20084516 I10 overall stable saloni w bp and will cont current med Chronic at rial fibrillation 307020931 I48.20 seems controlled with addition of xarelto no prob with med Atrial fibrillation 4943 6004 I48.91 stable no issues Active or passive immunization [id number] Z23 Acquired r ight hallux valgus [id number] 24479 M20.11 [id number] Erik Perkins, [facility] Internal Medicine [address] [facility],[place] [address] 04/26/2022 14:36:22 04/26/2022 15:37:00 Chronic atrial fibrillation 536941565 I48.20 seems controlled with addition of xarelto no prob with med Hypercholesterolemia 136 56846 E78.00 will need rechk Type 2 be betes mellitus 02178538 E11.9 a1c is now at 6.3 6.7 and prior was 6.8 he was 7.1 relates not always following diet will have him cont to follow as needed and rechk 3 mo he cont to take his cannabis without incident sometimes uuytybvb0l is stable at 7.1 Essential hypertension 05828469 I10 overall stable saloni w bp and will cont current med Diabetic foot ulcer 3710 01724 E13.621 we will use xerform dressing on woummd for now and have ordered a collagen silver dressing for him [id number] Erik Perkins [facility] Internal Medicine [address] [facility],[place] [address] 07/26/2022 14:27:33 07/26/2022 17:06:24 Chronic atrial fibrillation 532728921 I48.20 seems controlled with addition of xarelto no prob with med Type 2 be betes mellitus 00225185 E11.9 a1c is now at 6.3 again was 6.3 and prior was 6.7 and prior was 6.8 he was 7.1 relates not always following diet will have him cont to follow as needed and rechk 3 mo he cont to take his cannabis without incident sometimes veqyaevl6f is stable at 7.1 Essential hypertension 24545339 I10 overall stable saloni w bp and will cont current med Obstructiv e sleep apnea syndrome 56981135 G47.33 stable sleeps well Diabetic foot ulcer 3710 37570 E13.621 L97.409 getting better every weekwe will use xerform dressing on wound for now and have ordered a collagen silver dressing for him Advance care planning 71 6946286 Z71.89 utd Degenerati on of lumbar intervertebral disc 52251721 M51.36 baseline no change this is the one major problem in his life but feels he may be even worse fentanyl not as effective as in past back is slowly progressin g making him less mobile [id number] Erik Heller Gregorio [facility] Internal Medicine [address] [facility],[place] [facility] [address] 11/29/2022 15:48:05 12/01/2022 13:55:15 Chronic atrial fibrillation 723814951 I48.20 seems controlled with addition of xarelto no prob with med Degenerati on of lumbar intervertebral disc 25899740 M51.36 baseline no change this is the one major problem in his life but feels he may be even worse fentanyl not as effective as in past back is slowly progressin g making him less mobile Essential hypertension 42933548 I10 overall stable saloni w bp and will cont current med Type 2 be betes mellitus 89049376 E11.9 a1c is now at 6.1 he was 6.3 again was 6.3 and prior was 6.7 and prior was 6.8 he was 7.1 relates not always following diet will have him cont to follow as needed and rechk 3 mo he cont to take his cannabis without incident sometimes slnmerzh4o is stable at 7.1 83016 Erik Perkins [facility] [address] [facility],[place] [facility] [place] [address] 12/26/2022 11:08:34 12/26/2022 11:59:40 Atrial fibrillation 11490067 I48.0 stable Essential hypertension 68648117 I10 BP is okay Type 2 be betes mellitus 05241821 E11.9 stable Actinic keratosis 181640 007 L57.0 send out referral Squamous c ell carcinoma of skin 587347329 C44.329 will set up with derm [id number] Erik Perkins [facility] [address] [facility],[place] [facility] [place] [place] [address] 05/11/2023 08:25:32 05/11/2023 15:47:22 Essential hypertension 39321434 I10 overall stable saloni w bp and will cont current med Type 2 be betes mellitus 65019607 E11.9 a1c is now at 6.1 he was 6.3 again was 6.3 and prior was 6.7 and prior was 6.8 he was 7.1 relates not always following diet will have him cont to follow as needed and rechk 3 mo he cont to take his cannabis without incident sometimes xqimehjm9x is stable at 7.1 Intractabl e nausea and vomiting 297074469 R11.2 285955 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 [address] [facility],[place] [address] 08/21/2023 11:00:02 08/21/2023 11:28:02 Impacted cerumen of bilateral ears 9117189539 525398 H61.23 resolved [id number] 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 currently now on eliquisref ills all set, no xarelto Atrial fibrillation 4943 6004 I48.0 stable Essential hypertension 37533638 I10 BP is okay Type 2 be betes mellitus 10602405 E11.9 stable Squamous c ell carcinoma of skin 089826677 C44.329 will set up with derm Cholecystitis 82580521 K 80.00 has to still f/u with gen surg Benign pro static hyperplasia with outflow obstruction 027563946 N40.1 start per hospital Depressive disorder 3548 9007 F32.0 cont Diffuse sp asm of esophagus 18750496 K22.4 cont Seizure disorder 6368554 02 G40.309 cont 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 will set up with recheck [id number] Erik Perkins [facility] [address] [facility],[place] [facility] [address] 08/11/2024 08:31:52 08/11/2024 12:07:55 Atrial fibrillation 18221717 I48.0 stable no issues Degenerati on of lumbar intervertebral disc 94207425 M51.369 Depression screening 171 826190 Z13.31 neg Essential hypertension 76833240 I10 overall stable saloni w bp and will cont current med Hypercholesterolemia 136 60374 E78.00 not having drawn anymore at 84 yrs Type 2 be betes mellitus 01220093 E11.9 a1c is now at 6.1 he was 6.3 again was 6.3 and prior was 6.7 and prior was 6.8 he was 7.1 relates not always following diet will have him cont to follow as needed and rechk 3 mo he cont to take his cannabis without incident sometimes szxhcvhe1k is stable at 7.1 [id number] Erik Perkins [facility] [address] [facility], [place] [address] 12/15/2024 14:51:36 12/15/2024 16:06:08 Chronic constipation 617333566 K59.09 193411 continue Biliary sludge 91572192 K83.8 59222028 will set up with gastro for re eval Common cuauhtemoc e duct calculus 157064577 K80.50 9502 fu with GI Nodule of lung 421876174 R91.1 717356 will fu with repeat CT to monitor nodule Retention of urine 55682 4002 R33.9 79167 has urology f/u [id number] Erik Perkins [facility] [address] [facility] [address] 03/03/2025 14:51:03 03/03/2025 15:02:36 Depression screening 400017710 Z13.31 negative [id number] Erik Perkins [facility] [address] [facility] [place] [address] 04/21/2025 14:55:37 04/21/2025 15:47:41 Depression screening 275563904 Z13.31 neg Essential hypertension 59919743 I10 overall stable saloni w bp and will cont current med Atrial fibrillation 4943 6004 I48.0 stable no issues Type 2 be betes mellitus 06459041 E11.9 a1c is pending no rece nt lab now at 6.1 he was 6.3 again was 6.3 and prior was 6.7 and prior was 6.8 he was 7.1 relates not always following diet will have him cont to follow as needed and rechk 3 mo he cont to take his cannabis without incident sometimes phddbark1b is stable at 7.1 Health Concerns Section Related Observation LastModified by Organization Detai ls LastModified Time None Recorded Concern Status LastModified by Organization Details LastModified Time None Recorded Advance Directives Directive None Recorded Payers Insurance Date Sequence Insurance Name Policy Number Policy Daly Covered Member ID Daly Member ID Guarantor Name 04/18/2025 1 [place] [employer] Ferny Mckeon [id number] Ferny Mckeon 04/18/2025 2 [place] [id number] Ferny Mckeon [id number] Ferny Mckeon Notes Date Note Type Note Provider Name and Address Organization Details Recorded Time 024 text/ht ml ROS as noted in the [facility] hospital f/u the patient was d/c the [...] using the fentanyl patches JANY LONG [address] [facility], [place], [address], [facility] 11/19/2023 13:53:28 025 [...] his usual medications Erik Perkins DO [address] [facility], [place], [address], [facility] Internal Medicine 08/11/2024 12:01:17 025 text/ht ml ROS as noted in the [facility] hospital f/u, TCM 14 patient presented to [...] having regular bowel movement JANY LONG [address] [facility], [place], [address], [facility] Internal [facility] 12/15/2024 15:43:36
--- OUTSIDE RECORDS SUMMARY | 2025-05-01 23:39 | XMS_ITS | Clinical Summary ---
Author Organization [facility] Address [address] [place] [address] Phone Care Team Providers Care Paediatric Physiotherapist Name Role Phone SuzyErik mojica Primary Care Provider [phone] Erik Perkins DO Unavailable Ander Cruz MD Unavailable [phone] Allergies Active Allergy Reactions Criticality Noted [...] 2:00 PM EST Home Care Visit [facility] [address] [place] [address] Nicci Acevedo, PT PT OASIS DISCHARGE VISIT 04/01/2025 12:45 PM EST Home Care Visit [facility] [address] [place] [address] Nicci Acevedo, PT PT HOME VISIT 03/30/2025 12:45 PM EST Home Care Visit [facility] [address] [place] [address] Tootie Islas, OT OT DISCIPLINE DISCHARGE VISIT 03/26/2025 2:15 PM EST Home Care Visit [facility] [address] [place] [address] Nicic Acevedo, PT PT HOME VISIT 03/25/2025 2:00 PM EST Home Care Visit [facility] [address] [place] [address] Tootie Islas, OT OT HOME VISIT 03/24/2025 2:15 PM EST Home Care Visit [facility] [address] [place] [address] Nicci Acevedo, PT PT HOME VISIT 03/23/2025 3:00 PM EST Home Care Visit [facility] [address] [place] [address] Sylwia Leo, DERICK SN DISCIPLINE DISCHARGE VISIT 03/23/2025 2:00 PM EST Home Care Visit [facility] [address] [place] [address] Tootie Islas, OT OT HOME VISIT 03/20/2025 12:45 PM EST Home Care Visit [facility] [address] [place] [address] Liana Fernandes, BILLBOARD POSTER BILLBOARD POSTER HOME VISIT 03/18/2025 1:15 PM EST Home Care Visit [facility] [address] [place] [address] Tootie Islas, OT OT HOME VISIT 03/18/2025 1:00 PM EST Home Care Visit [facility] [address] [place] [address] Nicci Acevedo, PT PT HOME VISIT 03/17/2025 12:30 PM EST Home Care Visit [facility] [address] [place] [address] Tootie Islas, OT OT HOME VISIT 03/16/2025 1:00 PM EST Home Care Visit [facility] [address] [place] [address] Nicci Acevedo, PT PT HOME VISIT 03/11/2025 2:15 PM EDT Home Care Visit [facility] [address] [place] [address] Tootie Islas, OT OT HOME VISIT 03/11/2025 12:00 PM EDT Home Care Visit [facility] [address] [place], [place] [phone] Liana Fernandes LPN BILLBOARD POSTER HOME VISIT 03/10/2025 1:00 PM EDT Home Care Visit [facility] [address] [place], [place] [phone] Nicci Acevedo, PT PT TFA VISIT 03/09/2025 12:00 PM EDT Home Care Visit [facility] [address] [place], [place] [phone] Tootie Islas, OT OT HOME VISIT 03/04/2025 1:00 PM EDT Home Care Visit [facility] [address] [place] [address] Sylwia Leo, RN SN HOME VISIT 03/04/2025 11:45 AM EDT Home Care Visit [facility] [address] [place], [place] [phone] oTotie Islas, OT OT TFA VISIT 03/03/2025 1:15 PM EDT Home Care Visit [facility] [address] [place], [place] [phone] Liana Fernandes, LATRICE BILLBOARD POSTER HOME VISIT 03/03/2025 11:00 AM EDT Home Care Visit [facility] [address] [place], [place] [phone] Nicci Acevedo, PT PT HOME VISIT 02/27/2025 12:30 PM EDT Home Care Visit [facility] [address] [place], [place] [phone] Serena Castro, PT PT HOME VISIT 02/26/2025 1:00 PM EDT Home Care Visit [facility] [address] [place], [place] [phone] Tootie Islas, OT OT HOME VISIT 02/26/2025 10:00 AM EDT Home Care Visit [facility] [address] [place] [phone] Sylwia Leo, RN SN HOME VISIT 02/25/2025 1:15 PM EDT Home Care Visit [facility] [address] [place] [phone] Tootie Islas, OT OT HOME VISIT 02/20/2025 1:30 PM EDT Home Care Visit [facility] [address] [place] [phone] Nancy Abrams, PT PT HOME VISIT 02/19/2025 9:00 AM EDT Home Care Visit [facility] [address] [place] [address] Sylwia Leo, DERICK SN HOME VISIT 02/18/2025 11:45 AM EDT Home Care Visit [facility] [address] [place] [address] Tootie Islas, OT OT HOME VISIT 2025 1:30 PM EDT Home Care Visit [facility] [address] [place] [phone] Nancy Abrams, PT PT EVALUATION 02/16/2025 2:15 PM EDT Home Care Visit [facility] [address] [place] [address] Tootie Islas, OT OT EVALUATION 02/16/2025 1:00 PM EDT Home Care Visit [facility] [address] [place] [address] Sylwia Leo, RN SN HOME VISIT 02/14/2025 Plan of Care Documentation [facility] [address] [place], [place] [phone] 02/13/2025 10:00 AM EDT Home Care Visit [facility] [address] [place] [address] Sylwia Leo, DERICK SN OASIS START OF CARE (SOC) 02/12/2025 Home Care Visit [facility] [address] [place] [address] Naomi Sierra RN TELEPHONE ENCOUNTER 02/09/2025 Orders Only [facility] [address] [place] [address] Homehealth, Interface ProviderMD from Last 3 Months [...] EDT) SODIUM 137 133 - 146 mmol/L [facility] CHLORIDE 102 96 - 108 mmol/L [facility] POTASSIUM 5.1 3.3 - 5.1 mmol/L [facility] Comment:Specimen slightly he molyzed, result may be falsely elevated. CO2 22 21 - 35 mmol/L [facility] BUN 22(H) 6 - 19 mg/dL [facility] CREATININE 0.80 0.5 - 1.5 mg/dL [facility] GLUCOSE 138(H) 70 - 99 mg/dL [facility] CALCIUM 9.7 8.4 - 10.3 mg/dL [facility] EGFR 89 >59 mL/min/1.7 3m2 [facility] Comment:Estimated glomerular filtration rate calculated using the CKD-EPI refit equation. ANION GAP 18 10 - 20 mmol/L [facility] Blood 10/12/2023 11:5 9 AM EDT 10/12/2023 12:02 PM EDT us Tiffany Rodney PA-C LAB BLOOD BKR ORDERABLES Fi nal Result [address] [address] * (ABNORMAL) Hemoglobin A1c (09/25/2023 5:41 AM EDT) HEMOGLOBIN A1C 5.9(H) 4.3 - 5.8 % [facility] 09/25/2023 5:41 AM EDT 09/25/2023 5:59 AM EDT us Allen Desouza DO LAB BLOOD BKR ORDERABLES Final Result Performing Organization Address City/[facility]/ZIP Co de Phone Number [address] [address] * (ABNORMAL) Outside LDL (09/23/2010) LDL - External 45(A) 50 - 250 mg/ml us Historical Provider LAB BLOOD ORDERABLES Carrie l Result from Last 3 Months or Most Recently Relevant to Health Maintenance Insurance [place] [place], [place] [id number] [place] [address] CROSS [employer] SUPPLEMENT [employer] MEDEX SUPPLEMENT [employer] MEDEX SUPPLEMENT [employer] MEDEX SUPPLEMENT [employer] MEDEX SUPPLEMENT [employer] MEDEX SUPPLEMENT BLUE CROSS MEDEX SUPPLEMENT BLUE CROSS MEDEX SUPPLEMENT BLUE CROSS MEDEX SUPPLEMENT MEDICARE PART A & B [employer] MEDEX SUPPLEMENT MEDICARE PART A & B [employer] MEDEX SUPPLEMENT [employer] MEDEX SUPPLEMENT [employer] MEDEX SUPPLEMENT MEDIC[place] PART A & [place] [id number] [employer] CROSS MEDEX SUPPLEMENT [employer] MEDEX SUPPLEMENT [place] PART A [place] [id number] [place] [address] BLUE CROSS MEDEX SUPPLEMENT MEDICARE PART A & B MEDEX SUPPLEMENT MEDICARE PART A & B Advance Directives For more information, please contact: [phone] (9AM - 5PM Teresa/[facility], Sunday-Sunday) Documents on File Type Date Recorded Patient Slot Router Expl anation Healthcare Proxy 09/28/2023 4:34 PM * Full Code (Latest Code Status on File) Date Activated Date Inactivated Comments 09/24/2023 7:10 AM Question Answer Comments Code Status Confirmed With: Patient Code Status Communicated To: Inpatient Attending Care Teams Paediatric Physiotherapist Relationship Specialty Start Date End Date Erik Perkins DO [email or web address] PCP - General Internal Medicine 05/21/20 Erik Perkins DO Internal Medicine 05/21/20 Ander Cruz MD [address] [place] [address] [email or web address] Hematology and Oncology 05/15/17 Additional Source Comments The information contained in this document represents components of the legal health record. It is not the complete legal health record.[facility]
--- OUTSIDE RECORDS SUMMARY | 2025-05-01 23:39 | XMS_ITS | Encounter Summary ---
Author Organization [facility] Address [address] [facility] [address] [place] [address] Phone Care Team Providers Care Payroll Assistant Name Role Phone Erik Perkins DO Primary Care Provider Suzyyunior Erik Salomon DO Unavailable Ander Cruz MD Unavailable [phone] Encounter Details Date Type Department Care Team (Late st Contact Info) Description 10/25/2023 Procedure Pass OR Admitting Dept - Virtual Department [address] [place] [address] Social History Tobacco Use Types Packs/Day Years [...] on filedocumented in this encounter Care Teams Payroll Assistant Relationship Specialty Start Date End Date Erik Perkins DO [email or web address] PCP - General Internal Medicine 05/21/20 Erik Perkins DO Internal Medicine 05/21/20 Ander Cruz MD [address] [place] [address] Hematology and Oncology 05/15/17 documented as of this encounter Additional Source Comments The information contained in this document represents components of the legal health record. It is not the complete legal health record.[facility]
--- OUTSIDE RECORDS SUMMARY | 2025-05-01 23:39 | XMS_ITS | Encounter Summary ---
Author Organization [facility] Address [address] [facility] [address] [place] [address] Phone Care Team Providers Care Research Development Manager Name Role Phone Suzyyunior Erik Latif DO Primary Care Provider [phone] Erik Perkins DO Unavailable Ander Cruz MD Unavailable [phone] Encounter Details Date Type Department Care Team (Late st Contact Info) Description 05/11/2023 Transcribe Orders Virtual Department [address] [place] [address] Erik Perkins DO [address] [facility] [place] [address] [place] [address] [email or web address] Nausea and vomiting, unspecified vomiting type (Primary [...] radiograph 01/19/2031. CT abdomen 07/30/2018. OPERATORS: [employer] SUPERVISING PHYSICIAN: Sylvia Stroud TECHNIQUE: Double contrast [...] type documented in this encounter Care Teams Research Development Manager Relationship Specialty Start Date End Date Gregorio Erik DO Salomon [email or web address] PCP - General Internal Medicine 05/21/20 Erik Perkins DO Internal Medicine 05/21/20 Ander Cruz MD [address] [place] [address] [email or web address] Hematology and Oncology 05/15/17 documented as of this encounter Additional Source Comments The information contained in this document represents components of the legal health record. It is not the complete legal health record.[facility]
--- OUTSIDE RECORDS SUMMARY | 2025-05-01 23:39 | XMS_ITS | Encounter Summary ---
Author Organization [facility] Address [address] [place] [address] Phone Care Team Providers Care Financial Services Officer Name Role Phone Erik Perkins DO Primary Care Provider [phone] Erik Perkins DO Unavailable Kathleen Figueroa MD Unavailable [phone] Jeffry Bowman MD Unavailable [phone] Ander Cruz MD Unavailable [phone] Encounter Details Date Type Department Care Team (Late st Contact Info) Description 12/08/2020 Procedure Pass [facility] [address] [place] [address] Social History Tobacco Use Types Packs/Day Years [...] on filedocumented in this encounter Care Teams Financial Services Officer Relationship Specialty Start Date End Date Erik Perkins DO PCP - General Internal Medicine 05/21/20 Erik Perkins DO Internal Medicine 05/21/20 Kathleen Figueroa MD [address] [place] [address] [facility] [place], [place] [phone] Historical LMR Provider 02/26/17 Jeffry Bowman MD [address] [place] [address] [facility], [place], [place] [phone] Historical LMR Provider 02/26/17 2 Ander Cruz MD [address] [place] [address] [phone] Hematology and Oncology 05/15/17 documented as of this encounter Additional Source Comments The information contained in this document represents components of the legal health record. It is not the complete legal health record.[facility]
--- OUTSIDE RECORDS SUMMARY | 2025-05-01 23:39 | XMS_ITS | Encounter Summary ---
Author Organization [facility] Address [address] [facility] [address] [place] [address] Phone Care Team Providers Care Injury/Safety Hazard Assessment Name Role Phone Erik Perkins DO Primary Care Provider [phone] Erik Perkins DO Unavailable Kathleen Figueroa MD Unavailable [phone] Jeffry Bowman MD Unavailable [phone] Ander Cruz MD Unavailable [phone] Encounter Details Date Type Department Care Team (Late st Contact Info) Description 07/29/2020 Transcribe Orders Virtual Department [address] [place] [address] Erik Perkins DO [address] [facility] [place] [address] [place] [address] [email or web address] Dyspnea on exertion (Primary Dx) [...] Volumes, DLCO, Spirometry with bronchodilator; Performing Location: [facility] (09/14/2020 5:13 PM EDT) FEV1 FVC FEV1/FVC [...] abnormality documented in this encounter Care Teams Injury/Safety Hazard Assessment Relationship Specialty Start Date End Date Erik Perkins DO PCP - General Internal Medicine 05/21/20 Erik Perkins DO Internal Medicine 05/21/20 Kathleen Figueroa MD [address] [place] [address] Orthopedics & Sports [facility], [facility] [place] [address] Historical LMR Provider 02/26/17 Jeffry Bowman MD [address] [facility] Orthopedics Sports [facility], [place], [place] [id number] Historical LMR Provider 02/26/17 2 Ander Cruz MD [address] [place] [address] [email or web address] Hematology and Oncology 05/15/17 documented as of this encounter Additional Source Comments The information contained in this document represents components of the legal health record. It is not the complete legal health record.[facility]
--- OUTSIDE RECORDS SUMMARY | 2025-05-01 23:39 | XMS_ITS | Encounter Summary ---
Author Organization [facility] Address [address] [facility] [address] [place] [address] Phone Care Team Providers Care Sample Coordinator Name Role Phone Erik Perkins DO Primary Care Provider [phone] Suzyyunior Erik Salomon DO Unavailable Ander Cruz MD Unavailable [phone] Encounter Details Date Type Department Care Team (Late st Contact Info) Description 09/23/2023 Procedure Pass [facility], [facility] [address] [place] [address] Social History Tobacco Use Types Packs/Day Years [...] on filedocumented in this encounter Care Teams Sample Coordinator Relationship Specialty Start Date End Date Erik Perkins DO PCP - General Internal Medicine 05/21/20 Erik Perkins DO Internal Medicine 05/21/20 Ander Cruz MD [address] [place] [address] Hematology and Oncology 05/15/17 documented as of this encounter Additional Source Comments The information contained in this document represents components of the legal health record. It is not the complete legal health record.[facility]
--- OUTSIDE RECORDS SUMMARY | 2025-05-01 23:39 | XMS_ITS | Encounter Summary ---
Author Organization [facility] Address [address] [place] [address] [place] [address] Phone Care Team Providers Care Snowboarder Name Role Phone Erik Perkins Primary Care Provider [phone] Gregorio Erik Salomon DO Unavailable Ander Cruz MD Unavailable [phone] Encounter Details Date Type Department Care Team (Late st Contact Info) Description 06/06/2023 Procedure Pass [facility], Ct Scan - [facility] 30 [place] [address] Social History Tobacco Use Types Packs/Day Years [...] on filedocumented in this encounter Care Teams Snowboarder Relationship Specialty Start Date End Date Erik Perkins DO [email or web address] PCP - General Internal Medicine 05/21/20 Erik Perkins DO [email or web address] Internal Medicine 05/21/20 Ander Cruz MD [address] [place] [address] [email or web address] Hematology and Oncology 05/15/17 documented as of this encounter Additional Source Comments The information contained in this document represents components of the legal health record. It is not the complete legal health record.[facility]
--- OUTSIDE RECORDS SUMMARY | 2025-05-01 23:39 | XMS_ITS | Encounter Summary ---
Author Organization [facility] Address [address] [place] [address] Phone Care Team Providers Care Media Technician Name Role Phone Erik Perkins DO Primary Care Provider [phone] Erik Perkins DO Unavailable Kathleen Figueroa MD Unavailable [phone] Jeffry Bowman MD Unavailable [phone] Ander Cruz MD Unavailable [phone] Reason for Referral * Outpatient Procedure - Closed Specialty Diagnoses / Procedures Referred By Contmari t Referred To Contact Diagnoses Atypical chest pain Procedures Adult Echo TTE Erik Perkins DO Phone: tel: fax: [email or web address] Referral ID Status Reason Start Date Expiration Date Visits Re quested Visits Authorized [id number] Closed 12/08/2020 12/08/2021 1 1 Encounter Details Date Type Department Care Team (Late st Contact Info) Description 12/08/2020 Transcribe Orders Virtual Department 30 [place] [address] Erik Perkins DO [address] [facility] [place] [address] [place] [address] [email or web address] Atypical chest pain (Primary Dx); Chest pain, [...] pain documented in this encounter Care Teams Media Technician Relationship Specialty Start Date End Date Erik Perkins DO PCP - General Internal Medicine 05/21/20 Erik Perkins DO Internal Medicine 05/21/20 Kathleen Figueroa MD [address] [place] [address] Orthopedics [facility], [place], [place] [id number] Historical LMR Provider 02/26/17 Jeffry Bowman MD [address] [place] [address] [facility] [place], [place] [id number] Historical LMR Provider 02/26/17 2 Ander Cruz MD [address] [place] [id number] Hematology and Oncology 05/15/17 documented as of this encounter Additional Source Comments The information contained in this document represents components of the legal health record. It is not the complete legal health record.[facility]
--- OUTSIDE RECORDS SUMMARY | 2025-05-01 23:39 | XMS_ITS | Encounter Summary ---
Author Organization [facility] Address [address] [place] [address] Phone Care Team Providers Care Adventure Guide Name Role Phone Erik Perkins DO Primary Care Provider [phone] Erik Perkins DO Unavailable Kathleen Figueroa MD Unavailable [phone] Jeffry Bowman MD Unavailable [phone] Ander Cruz MD Unavailable [phone] Encounter Details Date Type Department Care Team (Late st Contact Info) Description 08/17/2020 Transcribe Orders [facility] [address] [place] [address] Erik Perkins DO [address] [facility] [address] [place], [place] [phone] Social History Tobacco Use Types Packs/Day Years [...] on filedocumented in this encounter Care Teams Adventure Guide Relationship Specialty Start Date End Date Erik Perkins DO PCP - General Internal Medicine 05/21/20 Erik Perkins DO Internal Medicine 05/21/20 Kathleen Figueroa MD [address] [place] [address] Orthopedics Sports [facility], [place], [place] [phone] Historical LMR Provider 02/26/17 Jeffry Bowman MD [address] [place] [address], [place], [place] [id number] Historical LMR Provider 02/26/17 2 Ander Cruz MD [address] [place] [address] Hematology and Oncology 05/15/17 documented as of this encounter Additional Source Comments The information contained in this document represents components of the legal health record. It is not the complete legal health record.[facility]
[2025-05-02] VITALS (11 sets, daily range): BP systolic 94–154; BP diastolic 48–89; PULSE 70–95; RESP 12–22; TEMP 36.3–37.7; O2SAT 95–99
[2025-05-02 01:10] LABS: Reflex Lactate? Lactic Acid Added
[2025-05-02] MEDS: levETIRAcetam in NaCl (iso-os) 500 MG/100 ML PIGGYBACK 400 MG IV (01:12)
[2025-05-02 01:36] LABS: ~Lactic Acid-LAB USE ONLY 1.1 mmol/L (0.5-2.0)
--- NOTE | 2025-05-02 03:02 | P.HPHOSP_ITS ---
History of Present Illness Date of Service: 05/02/25 Chief Complaint: Altered mental status An 85-year-old male with a history of persistent atrial fibrillation s/p PPM ([facility]), hypercoagulable state due to persistent atrial fibrillation on apixaban diabetes, prior stroke (2023, with associated extensive cerebral venous thrombosis), NIDDM, BPH with LUTs, hypertension, chronic back pain (remote history of multiple back surgeries) on long-term fentanyl 150 mcg transdermal treatment (> 20 years), prior pulmonary embolism, and seizure disorder on levetiracetam, presenting via EMS for acute confusion. He was discharged from the hospital a few hours prior after evaluation for possible TIA versus seizure and was reportedly at baseline at discharge. After arriving home, family noted confusion and inability to converse, which is a deviation from his usual baseline of normal conversation. Reportedly the patient was observed to be restless, getting up frequently to go to the bathroom. His presntation on 04/29 was similar with cognitive improvement whilst in the ED, it was reported within hours after fentanyl patch removal. On this presentation, fentanyl patches were again removed, but mental status remained altered. He was restless and agitated, attempting to remove lines and get out of bed. No focal neurologic deficits were described. Treatment in the ED included removal of fentanyl patch and administration of IV levetiracetam 500 mg. Vitals: BP ranged 131/84?94/48, HR 105?70, RR 12?22, Temp 97.5F, O2 sat 97?100% on room air. DIAGNOSTIC STUDIES: Laboratory studies: hematology and chemistry without significant abnormalities. CT head 05/01/25, limited by motion, no obvious acute abnormality. History obtained: Due to acute mental status change the patient was unable to provide a history. Collateral information obtained from reviewing the medical records. [facility] Medical History Elevated bilirubin Fall BPH (benign prostatic hyperplasia) Stroke Afib Diabetes Essential hypertension History of pulmonary embolism Gallbladder sludge Family History Father Heart attack Surgical History Previous back surgery Social History Household Members: Family and Children Household Members Other:: Son Housing: House Do you presently have visiting nurse or other home services: No Alcohol intake: never Comment: IV Ofirmev infusing Patient Tobacco Use Status: Former Tobacco user Tobacco use type: Cigarette Years Smoked: 30 Smoked in Last 30 Days: No Second Hand Smoke Exposure: No Use of substances other than those prescribed or required for medical reasons: No Advance Directives: Yes Advance Directives on File: Yes Advance Directives Date on File: 12/23/24 Nutrition Risks: Anorexia, Difficulty swallowing and On aspiration precautions service: No Meds Allergies Allergy/AdvReac Type Severity Reaction Status Date / Time Penicillins Allergy Intermediate Rash Verified 05/01/25 22:44 Home Medications ?Medication ?Instructions ?Recorded ?Confirmed ?Last Taken ?Type amlodipine 10 mg tablet 10 mg PO DAILY 10/14/2304/1304/29/25 History lisinopril 10 mg tablet 10 mg PO DAILY 10/14/2304/1304/29/25 History fentanyl 100 mcg/hr transdermal 100 mcg topical Q72H 0 12/01/24 04/29/25 04/28/25 History patch levetiracetam 500 mg tablet 500 mg PO DAILY 12/01/24 1 06/30/24 04/29/25 History cholecalciferol (vitamin D3) 25 25 mcg PO DAILY 04/29/25 04/29/25 History mcg (1,000 unit) tablet cyclobenzaprine 10 mg tablet 10 mg PO TID PRN Muscle S pasm 04/29/25 04/29/25 Unknown History Held on 05/01/25. Instructions: can cause confusion and sedation; hold off if able Physical Exam 2 Vital Signs and Narrative: Vital Signs: Last Vital Signs Temp 97.5 F 05/01/25 22:39 Pulse 70 05/02/25 01:11 Resp 22 H 05/02/25 01:11 BP 120/66 05/02/25 01:11 Pulse Ox 98 05/02/25 01:11 O2 Del Method Room Air 05/02/25 01:11 BMI result Body Mass Index 19.4 Physical examination limited secondary to acute mental status change. General: No acute distress, subcutaneous fat and muscle wasting in the interosseous spaces and over the ribs ENT: DEVORA Cardiovascular: ?RRR, no murmurs, rubbing, gallops Respiratory: No use of accessory muscles Gastrointestinal: Soft, non distended, non tender, non guarding Extremities: No edema Neurology: 4AT Delirium and Cognitive evaluation [1] ALERTNESS: responds to physical stimulation (4) [2] AMT4: untestable (4) [3] ATTENTION: untestable (4) [4] ACUTE CHANGE OR FLUCTUATING COURSE: 4 Total score: The 4AT is scored from 0-12 0 suggests no delirium and no moderate-s evere cognitive impairment 1-3 suggests cognitive impairment but no t delirium 4 or more suggests delirium Results Labs 05/01/25 23:07 05/01/25 23:07 Labs: Laboratory Results - last 24 hr 05/01/25 05/01/25 05/01/25 22:49 23:07 23:14 MCV 85.1 MCH 29.0 MCHC 34.1 RDW 14.3 Plt Count 181 MPV 9.5 Immature Gran % (Auto) 0.2 Neut % (Auto) 62.1 Lymph % (Auto) 28.4 [place] % (Auto) 8.5 Eos % (Auto) 0.3 Baso % (Auto) 0.5 Lymph # (Auto) 1.8 [place] # (Auto) 0.6 Eos # (Auto) 0.0 Baso # (Auto) 0.0 Abs Immat Gran (auto) 0.01 Absolute Neuts (auto) 4.0 Absolute Nucleated RBC 0.000 Nucleated RBC % (auto) 0.0 Anion Gap 15 Estim Creat Clear Calc 66.5 Estimated GFR > 60 POC Glucose 143 H Random Glucose 154 H Lactic Acid 2.1 H* Lactic Acid F/U @ 2Hr Calcium 10.1 D Troponin I High Sens 3.1 Urine Color Yellow Urine Appearance Clear Urine pH 6.5 Ur Specific [place] 1.015 Urine Protein Negative Urine Glucose (UA) Negative Urine Ketones Negative Urine Blood Negative Urine Nitrite Negative Ur Leukocyte Esterase Small (1+) H Urine RBC 0-2 Urine WBC 11-20 H Ur Squamous Epith Cells 0-2 Urine Bacteria Trace Hyaline Casts 0-2 Ethyl Alcohol < 10 05/02/25 01:17 MCV MCH MCHC RDW Plt Count MPV Immature Gran % (Auto) Neut % (Auto) Lymph % (Auto) [place] % (Auto) Eos % (Auto) Baso % (Auto) Lymph # (Auto) [place] # (Auto) Eos # (Auto) Baso # (Auto) Abs Immat Gran (auto) Absolute Neuts (auto) Absolute Nucleated RBC Nucleated RBC % (auto) Anion Gap Estim Creat Clear Calc Estimated GFR POC Glucose Random Glucose Lactic Acid Lactic Acid F/U @ 2Hr 1.1 Calcium Troponin I High Sens Urine Color Urine Appearance Urine pH Ur Specific [place] Urine Protein Urine Glucose (UA) Urine Ketones Urine Blood Urine Nitrite Ur Leukocyte Esterase Urine RBC Urine WBC Ur Squamous Epith Cells Urine Bacteria Hyaline Casts Ethyl Alcohol Assessment and Plan (1) Altered mental status: Status: Acute Plan An 85 year old male with significant vascular and neurologic comorbidities presenting shortly after hospital discharge with recurrent acute altered mental status, and non-diagnostic head CT. Possible acute toxic metabolic encephalopathy with acute delirium likely multifactorial due to the following below: Medication toxicity: fentanyl (long-term use prescribed use of transdermal fentanyl for chronic pain) urine tox positive for THC (positive on 04/30 and 05/01), and benzodiazepine. Metabolic and infection with atypical presentation, etiology has not been identified -Fentanyl transdermal removed in the ED. Reassess for potentially restarting probably at a lower dose when the risk versus benefit of withdrawal. 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 Quality Stroke Does the patient have a stroke diagnosis?: No VTE Prior VTE?: Yes VTE Risk Level:: Medical - moderate - high VTE Device Contraindication: Treatment Not Tolerated VTE Drug Contraindication: N/A - Med Ordered
[2025-05-02 03:09] LABS: Cannabinoid Screen Urine POSITIVE (Not Detect)
[2025-05-02] MEDS: Lactated Ringers 1,000 ML 80 ML IVCONT (03:57)
[2025-05-02 05:29] LABS: MANUAL DIFF FLAG NO
--- NOTE | 2025-05-02 05:30 | HO.NURTONUR ---
85M Elis from home was discharged from the hospital a few hours prior after evaluation for possible TIA versus seizure and was reportedly at baseline at discharge. After arriving home, family noted confusion and inability to converse, which is a deviation from his usual baseline of normal conversation. Reportedly the patient was observed to be restless, getting up frequently to go to the bathroom. His presentation on 04/29 was similar with cognitive improvement whilst in the ED, it was reported within hours after fentanyl patch removal. Fentanyl patches removed in ED. Patient straight cath'd in ED and then incontinent. More alert at this time, with c/o of hurting him while getting blood work. Labs remarkable for lactic acd 2.1/1.1, Ct head negative. Afib with V paced complexes. Given IV keppra, LR @ 80mL/hr 18g L forearm PMH of persistent atrial fibrillation s/p PPM ([facility]), hypercoagulable state due to persistent atrial fibrillation on apixaban diabetes, prior stroke (2023, with associated extensive cerebral venous thrombosis), NIDDM, BPH with LUTs, hypertension, chronic back pain (remote history of multiple back surgeries) on long-term fentanyl 150 mcg transdermal treatment (> 20 years), prior pulmonary embolism, and seizure disorder on levetiracetam
[2025-05-02 05:42] LABS: Anion Gap 16 (12-20); Blood Urea Nitrogen 10 mg/dL (9-16); Calcium 10.2 mg/dL (8.4-10.2); Carbon Dioxide 23 mmol/L (22-29); Chloride 107 mmol/L (96-108); Creatinine Clr Calc Pharmacy 68.8; Estimated Glomerular Filt Rate > 60; Magnesium 1.9 mg/dL (1.6-2.6); Potassium 4.1 mmol/L (3.3-5.1); Sodium 142 mmol/L (135-145)
[2025-05-02 05:43] LABS: Hematocrit 42.3 % (42.0-52.0); Hemoglobin 14.0 g/dl (14.0-18.0); Imm Gran Abs Auto 0.01 X10*3/uL (0.00-0.03); Imm Gran Pct Auto 0.2 % (0.0-0.4); Lymphocytes Absolute Auto 2.6 X10*3/uL (1.2-4.9); Mean Corpuscular HGB Conc 33.1 g/dl (31.0-36.0); Mean Corpuscular Hemoglobin 28.5 pg (27.0-33.0); Mean Corpuscular Volume 86.2 fL (80.0-98.0); NRBC Abs Auto 0.000 X10*3/uL (0.0-0.012); NRBC Pct Auto 0.0 /100WBC (0.0-0.2); Platelet Count 171 X10*3/uL (160-400); Red Blood Count 4.91 X10*6/uL (4.60-5.80); White Blood Count 6.5 X10*3/uL (4.8-10.8)
--- NOTE | 2025-05-02 06:32 | PC.NURSE ---
Patient more alert this morning, keeps asking what is going on something is not right here. Able to stand at bedside with 2 assist to urinate. Patient reporting he remembered leaving the hospital but does not understand why he is back. Patient endorses no recreation drug use. When asked about marijuana use patient stated no absolutely not
[2025-05-02 06:36] LABS: Free T4 (Free Thyroxine) 1.50 ng/dL (0.71-1.85)
[2025-05-02 06:40] LABS: Glucose, Whole Blood 124 mg/dL (60-115)
--- NOTE | 2025-05-02 07:34 | PC.NURSE ---
Assumed care of patient at 0700. Noted to be confused and asking what is going on here. Patient easily redirected. Seizure precautions in place for patient. VSS afebrile. IV wrapped in gauze. IVF running. No needs at this time.
--- NOTE | 2025-05-02 08:25 | PHA.MEDREC ---
Pharmacy Consult ? Medication Reconciliation Pharmacy has completed the medication reconciliation. Patient just discharged, med rec completed previously by me with patient's son, Jovan. Utilized discharge summary
--- NOTE | 2025-05-02 08:39 | PC.NURSE ---
Patient placed in hospital bed d/t comfort.
--- NOTE | 2025-05-02 09:11 | PM.EVENT ---
Event Note Date of Service: 05/02/25 Event Note: 85 yo male with PMH AFIB on Eliquis, CVA, NIDDM, Seizure, hypothyroidism, PPM placement (last checked 11/05), HTN, HLD, GERD, BPH, vascular dementia here with metabolic encephalopathy dc less than 24 hrs Metabolic encephalopathy likely multifactorial--UTI, sun-downing, underlying dementia treat underlying uti with cipro avoid meds that can worsen delirium hydrate tsh is low bu fT4 is normal Neuro consult Seizure disorder Continue levetiracetam seizure precautions BPH with LUTS Monitor closely for incomplete bladder emptying Paroxysmal AFIB continue eliquis HTN continue lisinopril, norvasc Chropnic back pain fentanyl, NIDDM SSI hold metformin Diabetic diet dvt prophylaxis: gray Full code Time Spent With Patient Time: Total time managing care of this patient today ____ minutes.
[2025-05-02] MEDS: fentaNYL 50 MCG PATCH.TD72 TRANSDERMA (09:42)
[2025-05-02] MEDS: fentaNYL 100 MCG PATCH.TD72 TRANSDERMA (09:43)
--- NOTE | 2025-05-02 09:54 | PC.NURSE ---
patient medicated per JUL, meds given with applesauce. patient did not have any fentanyl patches on, patches placed per JUL on the left arm/shoulder, time/dated with tegaderm over them. patient is alert to self, in hospital bed for comfort.
--- NOTE | 2025-05-02 12:08 | PC.NURSE ---
Addendum entered by Yesica Nguyen RN 05/02/25 12:12: inpatient provider replied, states if patient is not trying to bed exit then patient does not need medication for agitation. patient is sitting in hospital bed, occasionally fidgiting with blankets/side rails. bed alarm is on, bed is in lowest locked position. Original Note: patients family is at bedside, requesting medication for agitation. patients behaviors have remained the same, confused. patient does not appear agitated to this RN. informed patient family that inpatient provider was notified.
[2025-05-02 12:46] LABS: Glucose, Whole Blood 167 mg/dL (60-115)
--- NOTE | 2025-05-02 18:26 | HO.SKINPHOTO ---
Location: Right Hip Category: Pressure Injury Present on Admission
[2025-05-02 18:53] LABS: Glucose, Whole Blood 174 mg/dL (60-115)
[2025-05-03] MEDS: 0.9 % Sodium Chloride Flush 3 ML SYRINGE IVFLUSH (00:20)
[2025-05-03 01:09] LABS: Glucose, Whole Blood 173 mg/dL (60-115)
[2025-05-03 04:00] VITALS: BP 100/58; PULSE 70; RESP 18; TEMP 36.1; O2SAT 97
[2025-05-03 06:55] VITALS: BP 102/55; PULSE 70; RESP 16; TEMP 36.1; O2SAT 97
[2025-05-03 07:17] LABS: Glucose, Whole Blood 139 mg/dL (60-115)
--- NOTE | 2025-05-03 08:38 | HO.PM.IMPN ---
Subjective Subjective Date of Service: 05/03/25 Interval History: f/u on metabolic encephalopathy he's much better today, less confused Physical Exam Vital Signs: Vital Signs: Last Vital Signs Temp 96.9 F 05/03/25 06:55 Pulse 70 05/03/25 06:55 Resp 16 05/03/25 06:55 BP 102/55 L 05/03/25 06:55 Pulse Ox 97 05/03/25 06:55 O2 Del Method Room Air 05/03/25 06:55 BMI result Body Mass Index 19.4 Const: Other: General: Oriented to self , place, no acute distress Resp: CTA bilateral CVS: S1,S2,RRR GI: +BS, NT, no distention Skin: No rash Neuro: motor grossly intact Psych: appropriate affect Objective Data Active Medications Acetaminophen (Acetaminophen 325 Mg Tablet) 650 mg PO Q6H PRN PRN Reason: Pain, Mild 1-3,fever,headache Amlodipine Besylate (Amlodipine Besylate 10 Mg Tablet) 10 mg PO DAILY [facility]; Protocol Apixaban (Apixaban 5 Mg Tablet) 5 mg PO BID [facility] Last Admin: 05/02/25 23:28 Dose: 5 mg Documented By: DOROTHY Calcium Carbonate (Calcium Carbonate 750 Mg Tab.Chew) 750 mg PO Q4H PRN PRN Reason: Heartburn Dextrose (Dextrose 50 % 25 Gm/50 Ml Syringe) 25 gm IVPUSH Q15M PRN; Protocol PRN Reason: per Hypoglycemia Standing Ord. Docusate Sodium (Docusate Sodium 100 Mg Capsule) 100 mg PO BID [facility] Last Admin: 05/02/25 23:31 Dose: 100 mg Documented By: DOROTHY Doxazosin Mesylate (Doxazosin Mesylate 2 Mg Tablet) 4 mg PO BEDTIME [facility]; Protocol Last Admin: 05/02/25 23:31 Dose: 4 mg Documented By: DOROTHY Fentanyl (Fentanyl 50 Mcg Patch.Td72) 50 mcg TRANSDERMA Q72H [facility] Last Admin: 05/02/25 09:42 Dose: 50 mcg Documented By: BLAZE Fentanyl (Fentanyl 100 Mcg Patch.Td72) 100 mcg TRANSDERMA Q72H [facility] Last Admin: 05/02/25 09:43 Dose: 100 mcg Documented By: BLAZE Finasteride (Finasteride 5 Mg Tablet) 5 mg PO DAILY [facility] Last Admin: 05/02/25 11:43 Dose: 5 mg Documented By: CAMRYN Glucose (Glucose Gel 15 Gm Gel..Gram.) 15 gm PO Q15M PRN; Protocol PRN Reason: per Hypoglycemia Standing Ord. Ciprofloxacin (Cipro) 400 mg in 200 mls @ 200 mls/hr IV BID [facility] Last Infusion: 05/03/25 01:03 Dose: Infused Documented By: DOROTHY Insulin Human Lispro (Insulin Lispro 100 Unit/Ml 3 Ml Vial) 0 unit SUBCUT QIDACHS [facility]; Protocol Levetiracetam (Levetiracetam 500 Mg Tablet) 500 mg PO DAILY [facility] Last Admin: 05/02/25 09:42 Dose: 500 mg Documented By: BLAZE Lisinopril (Lisinopril 10 Mg Tablet) 10 mg PO DAILY [facility]; Protocol Magnesium Hydroxide (Milk Of Magnesia 30 Ml Oral.Susp) 30 ml PO DAILY PRN PRN Reason: Constipation Magnesium Hydroxide (Milk Of Magnesia 30 Ml Oral.Susp) 30 ml PO DAILY PRN PRN Reason: Constipation Melatonin (Melatonin 3 Mg Tablet) 3 mg PO BEDTIME PRN PRN Reason: Insomnia Omeprazole (Omeprazole 20 Mg Capsule.Dr) 20 mg PO BID@0630,1630 [facility] Last Admin: 05/03/25 06:26 Dose: 20 mg Documented By: DOROTHY Ondansetron HCl (Ondansetron Hcl 4 Mg/2 Ml Vial) 4 mg IVPUSH Q8H PRN PRN Reason: Nausea and Vomiting Polyethylene Glycol (Polyethylene Glycol 3350 17 Gm Powd.Pack) 17 gm PO BID PRN PRN Reason: Constipation Sodium Chloride (0.9 % Sodium Chloride Flush 3 Ml Syringe) 3 ml IVFLUSH QSHIFT [facility] Last Admin: 05/03/25 00:20 Dose: 3 ml Documented By: DOROTHY Vitamin D (Cholecalciferol (Vitamin D3) 25 Mcg Tablet) 25 mcg PO DAILY [facility] Labs 05/02/25 05:25 05/02/25 05:25 Labs: Laboratory Results - last 24 hr 05/02/25 05/02/25 05/03/25 12:41 18:50 01:05 POC Glucose 167 H 174 H 173 H 05/03/25 07:13 POC Glucose 139 H Assessment and Plan (1) Metabolic encephalopathy: Status: Acute (2) UTI (urinary tract infection): Status: Acute Plan 85 yo male with PMH AFIB on Eliquis, CVA, NIDDM, Seizure, hypothyroidism, PPM placement (last checked 11/05), HTN, HLD, GERD, BPH, vascular dementia here with metabolic encephalopathy dc less than 24 hrs Metabolic encephalopathy likely multifactorial--UTI, sun-downing, underlying dementia treat underlying uti with cipro, prior cultures pseudomonas and e coli avoid meds that can worsen delirium hydrate tsh is low bu fT4 is normal Seizure disorder Continue levetiracetam seizure precautions recent eeg 04/30 no seizure BPH with LUTS Proscar Paroxysmal AFIB, rate controlled continue eliquis HTN continue lisinopril, norvasc Chropnic back pain fentanyl, NIDDM SSI metformin need for inpt: metabolic encephalopathy, uti on iv abx, need PT to assess safety at home Quality Stroke Does the patient have a stroke diagnosis?: No VTE Prior VTE?: Yes VTE Risk Level:: Medical - moderate - high VTE Device Contraindication: Treatment Not Tolerated VTE Drug Contraindication: N/A - Med Ordered
[2025-05-03 12:04] LABS: Glucose, Whole Blood 222 mg/dL (60-115)
--- NOTE | 2025-05-03 13:56 | MHC.CM.PN ---
Addendum entered by Marsha Ricketts 05/03/25 14:02: HCP/SON: CLARENCE [phone] SON: ZEKE [phone] Original Note: CM MET WITH PT WHO STATES HE LIVES AT HOME AND HIS SON, ZEKE, LIVES WITH HIM HE STATES HE DID HAVE [facility] BUT THEY WERE SCHEDULED TO STOP, HE WOULD LIKE TO HAVE THEM AGAIN HE HAS A CANE AND WALKER, PRIMARILY USES THE WALKER HCP ON FILE PCP: AMELIA SHAW IMM DELIVERED 05/02/25 PT STATING HE WANTS TO DC HOME SON/HCP, CLARENCE, REPORTS SOME CONCERNS THAT PT MAY NEED STR PT WAS RECENTLY DISCHARGED, BUT ONLY HERE FROM 04/29-05/01, HE DID NOT HAVE A [facility] REFERRAL PLACED TO [facility] THAT WILL BE THE LIKELY DCP FAMILY TO TRANSPORT
[2025-05-03 16:00] VITALS: BP 120/67; PULSE 78; RESP 18; TEMP 36.4; O2SAT 99
[2025-05-03 16:41] LABS: Glucose, Whole Blood 104 mg/dL (60-115)
[2025-05-03 20:00] VITALS: BP 116/63; PULSE 70; RESP 18; TEMP 36.4; O2SAT 99
[2025-05-03 20:27] LABS: Glucose, Whole Blood 165 mg/dL (60-115)
[2025-05-04 03:22] VITALS: BP 99/55; PULSE 69; RESP 14; TEMP 36; O2SAT 97
[2025-05-04 07:20] VITALS: BP 105/74; PULSE 70; RESP 18; TEMP 36.4; O2SAT 97
[2025-05-04 07:49] LABS: Glucose, Whole Blood 111 mg/dL (60-115)
[2025-05-04 07:58] VITALS: BP 105/74
[2025-05-04] MEDS: 0.9 % Sodium Chloride Flush 3 ML SYRINGE IVFLUSH (07:59)
--- NOTE | 2025-05-04 08:38 | P.PNIM_ITS ---
Subjective Subjective Date of Service: 05/04/25 Interval History: Lucid and want to go home Physical Exam 2 Vital Signs: Vital Signs: Last Vital Signs Temp 97.6 F 05/04/25 07:20 Pulse 70 05/04/25 07:20 Resp 18 05/04/25 07:20 BP 105/74 05/04/25 07:58 Pulse Ox 97 05/04/25 07:20 O2 Del Method Room Air 05/04/25 07:20 BMI result Body Mass Index 19.4 Const: Other: General: oriented x 3 Resp: CTA bilateral CVS: S1,S2,RRR GI: +BS, NT, no distention Skin: No rash Neuro: motor grossly intact Psych: appropriate affect Objective Data Active Medications Acetaminophen (Acetaminophen 325 Mg Tablet) 650 mg PO Q6H PRN PRN Reason: Pain, Mild 1-3,fever,headache Amlodipine Besylate (Amlodipine Besylate 10 Mg Tablet) 10 mg PO DAILY [facility]; Protocol Last Admin: 05/04/25 07:58 Dose: 10 mg Documented By: RAJANI Apixaban (Apixaban 5 Mg Tablet) 5 mg PO BID [facility] Last Admin: 05/04/25 07:58 Dose: 5 mg Documented By: RAJANI Calcium Carbonate (Calcium Carbonate 750 Mg Tab.Chew) 750 mg PO Q4H PRN PRN Reason: Heartburn Dextrose (Dextrose 50 % 25 Gm/50 Ml Syringe) 25 gm IVPUSH Q15M PRN; Protocol PRN Reason: per Hypoglycemia Standing Ord. Docusate Sodium (Docusate Sodium 100 Mg Capsule) 100 mg PO BID [facility] Last Admin: 05/04/25 07:58 Dose: 100 mg Documented By: RAJANI Doxazosin Mesylate (Doxazosin Mesylate 2 Mg Tablet) 4 mg PO BEDTIME [facility]; Protocol Last Admin: 05/03/25 20:54 Dose: 4 mg Documented By: MIKE Fentanyl (Fentanyl 50 Mcg Patch.Td72) 50 mcg TRANSDERMA Q72H [facility] Last Admin: 05/02/25 09:42 Dose: 50 mcg Documented By: BLAZE Fentanyl (Fentanyl 100 Mcg Patch.Td72) 100 mcg TRANSDERMA Q72H [facility] Last Admin: 05/02/25 09:43 Dose: 100 mcg Documented By: BLAZE Finasteride (Finasteride 5 Mg Tablet) 5 mg PO DAILY [facility] Last Admin: 05/04/25 07:58 Dose: 5 mg Documented By: RAJANI Glucose (Glucose Gel 15 Gm Gel..Gram.) 15 gm PO Q15M PRN; Protocol PRN Reason: per Hypoglycemia Standing Ord. Ciprofloxacin (Cipro) 400 mg in 200 mls @ 200 mls/hr IV BID [facility] Last Admin: 05/04/25 08:06 Dose: 200 mls/hr Documented By: RAJANI Insulin Human Lispro (Insulin Lispro 100 Unit/Ml 3 Ml Vial) 0 unit SUBCUT QIDACHS [facility]; Protocol Last Admin: 05/04/25 07:51 Dose: Not Given Documented By: RAJANI Non-Admin Reason: No Insulin Coverage Levetiracetam (Levetiracetam 500 Mg Tablet) 500 mg PO DAILY [facility] Last Admin: 05/04/25 07:59 Dose: 500 mg Documented By: RAJANI Lisinopril (Lisinopril 10 Mg Tablet) 10 mg PO DAILY [facility]; Protocol Last Admin: 05/04/25 07:52 Dose: Not Given Documented By: RAJANI Non-Admin Reason: Physician Held Med Magnesium Hydroxide (Milk Of Magnesia 30 Ml Oral.Susp) 30 ml PO DAILY PRN PRN Reason: Constipation Magnesium Hydroxide (Milk Of Magnesia 30 Ml Oral.Susp) 30 ml PO DAILY PRN PRN Reason: Constipation Melatonin (Melatonin 3 Mg Tablet) 3 mg PO BEDTIME PRN PRN Reason: Insomnia Metformin HCl (Metformin Hcl 500 Mg Tablet) 500 mg PO BIDWM [facility] Last Admin: 05/04/25 07:59 Dose: 500 mg Documented By: RAJANI Omeprazole (Omeprazole 20 Mg Capsule.) 20 mg PO BID@0630,1630 [facility] Last Admin: 05/04/25 06:06 Dose: 20 mg Documented By: MIKE Ondansetron HCl (Ondansetron Hcl 4 Mg/2 Ml Vial) 4 mg IVPUSH Q8H PRN PRN Reason: Nausea and Vomiting Polyethylene Glycol (Polyethylene Glycol 3350 17 Gm Powd.Pack) 17 gm PO BID PRN PRN Reason: Constipation Sodium Chloride (0.9 % Sodium Chloride Flush 3 Ml Syringe) 3 ml IVFLUSH QSHIFT [facility] Last Admin: 05/04/25 07:59 Dose: 3 ml Documented By: RAJANI Vitamin D (Cholecalciferol (Vitamin D3) 25 Mcg Tablet) 25 mcg PO DAILY [facility] Last Admin: 05/04/25 07:58 Dose: 25 mcg Documented By: RAJANI Labs 05/02/25 05:25 05/02/25 05:25 Labs: Laboratory Results - last 24 hr 05/03/25 05/03/25 05/03/25 11:51 16:34 20:09 POC Glucose 222 H 104 165 H 05/04/25 07:35 POC Glucose 111 Microbiology Microbiology Results: Microbiology 05/01/25 Unknown Urine Culture - Final Urine Catheterized - Childs Catheter Pseudomonas aeruginosa Assessment and Plan (1) Metabolic encephalopathy: Status: Acute (2) UTI (urinary tract infection): Status: Acute Plan 85 yo male with PMH AFIB on Eliquis, CVA, NIDDM, Seizure, hypothyroidism, PPM placement (last checked 11/05), HTN, HLD, GERD, BPH, vascular dementia here with metabolic encephalopathy dc less than 24 hrs Metabolic encephalopathy likely multifactorial--UTI, sun-downing, underlying dementia--at baseline now treat underlying uti with cipro, prior cultures pseudomonas and e coli avoid meds that can worsen delirium hydrated tsh is low bu fT4 is normal Seizure disorder Continue levetiracetam seizure precautions recent eeg 04/30 no seizure BPH with LUTS Proscar Paroxysmal AFIB, rate controlled continue eliquis HTN continue lisinopril, norvasc Chropnic back pain fentanyl, NIDDM SSI metformin need for inpt: metabolic encephalopathy, uti on iv abx, need PT to assess safety at home Quality Stroke Does the patient have a stroke diagnosis?: No VTE Prior VTE?: Yes VTE Risk Level:: Medical - moderate - high VTE Device Contraindication: Treatment Not Tolerated VTE Drug Contraindication: N/A - Med Ordered
--- NOTE | 2025-05-04 08:41 | P.DS_ITS ---
DS: Providers Provider Date of admission: 05/02/25 03:02 Date of discharge: 05/04/25 Primary care physician: Erik Perkins MD Consults: 05/02/25 03:59 Consult to Neurology Routine Consulting Provider: [facility] Reason for consultation: altered mental status 05/02/25 18:27 Consult to Wound Care Routine Consulting Provider: [facility] Wound Care Management Reason for consultation: ? Stg II to R hip DS: Diagnosis Discharge Diagnosis (1) Metabolic encephalopathy: Status: Acute (2) UTI (urinary tract infection): Status: Acute DS: Summary Hospital Course Hospital Course: 85 yo male with PMH AFIB on Eliquis, CVA, NIDDM, Seizure, hypothyroidism, PPM placement (last checked 11/05), HTN, HLD, GERD, BPH, vascular dementia here with metabolic encephalopathy dc less than 24 hrs. He was found to have UTI and sarted on Cipro for history of Pseudomonas, urine culture came back positive for Pseudomoas senitive to Cipro. He is now lucid and oriented x 3, he's abulating and at his baseline and clear by PT for home. He will be discharged with cipro for 7 days, there is risk lowering seizure threshold with cipro, however treatm entoption are limittd and will cautiously proceed with cipro since he has had no issues so far. To resume all other home medicaions. Time Attestation Discharge Coordination Time (in mins): 45 Quality: Safe Use of Opioids Does Pt have an Active Cancer Diagnosis on the Problem List?: No Quality: Stroke Does the patient have a stroke diagnosis?: No Physical Exam Vital Signs: Vital Signs: Last Vital Signs Temp 97.6 F 05/04/25 07:20 Pulse 70 05/04/25 07:20 Resp 18 05/04/25 07:20 BP 105/74 05/04/25 07:58 Pulse Ox 97 05/04/25 07:20 O2 Del Method Room Air 05/04/25 07:20 BMI result Body Mass Index 19.4 DS: Data Data Completed and Pending Completed studies during hospitalization [Text1]: Procedures Insertion of Pacemaker Lead into Right Atrium, Percutaneous Approach (10/14/23) Insertion of Pacemaker Lead into Right Ventricle, Percutaneous Approach (10/14/23) Insertion of Pacemaker, Dual Chamber into Chest Subcutaneous Tissue and Fascia, Open Approach (10/14/23) Labs on day of discharge: Laboratory Results - last 24 hr 05/03/25 05/03/25 05/03/25 11:51 16:34 20:09 POC Glucose 222 H 104 165 H 05/04/25 07:35 POC Glucose 111 Discharge Plan Discharge Anticipated Discharge Date/Time: 05/04/25 08:42 Patient Disposition: Home Health Service Discharge Diagnosis: Metabolic encephalopathy due to UTI Referrals: [facility] [Outside] - 1 Week Erik Perkins MD [Primary Care Provider, Internal Medicine] - 1 Week Discharge Medications: New ciprofloxacin HCl [Cipro] 500 mg tablet 500 mg PO BID Qty: 10 0RF Continued amlodipine 10 mg tablet 10 mg PO DAILY lisinopril 10 mg tablet 10 mg PO DAILY omeprazole 20 mg Capsule,Delayed Release(Dr/Ec) 20 mg PO BID@0630,1630 Qty: 0 0RF metformin 500 mg tablet 500 mg PO BIDWMEAL Qty: 60 0RF Eliquis 5 mg Tablet 5 mg PO BID Qty: 0 0RF levetiracetam 500 mg tablet 500 mg PO DAILY fentanyl 100 mcg/hr patch 72 hour 100 mcg topical Q72H Patient Comments: arrives 01/22/25 with 2 day old patch polyethylene glycol 3350 17 gram Powder In Packet 17 g PO BID PRN (Reason: constipation) Qty: 120 0RF magnesium hydroxide [Milk of Magnesia] 400 mg/5 mL Suspension 30 ml PO DAILY PRN (Reason: Constipation) Qty: 200 0RF docusate sodium 100 mg Capsule 100 mg PO BID Qty: 60 0RF fentanyl 50 mcg/hr patch 72 hour 1 patch transdermal Q72H 30 Days Qty: 5 0RF Rx Instructions: Partial Fill upon patient request. cholecalciferol (vitamin D3) 25 mcg (1,000 unit) Tablet 25 mcg PO DAILY finasteride 5 mg tablet 5 mg PO DAILY 90 Days Qty: 90 1RF terazosin 5 mg capsule 5 mg PO BEDTIME 90 Days Qty: 90 1RF Discharge Orders: Discharge Order (Routine); Ordered 05/04/25 Ordered By: Misael Ferreira Diet: Advance to usual diet Activity on Discharge: As tolerated Stand Alone Forms: Patient Portal Discharge page Print Language: Turkish Care Plan Goals: recover from uti and metabolic encephalopathy Health Concerns: uti metabolic encephalopathy Plan of Treatment: take cipro as directed resume your usual medications follow up with your doctor in a week, call for appointment Assessment: see jadon
--- NOTE | 2025-05-04 09:20 | MHC.CM.PN ---
pt dcd home with chyna
--- NOTE | 2025-05-04 10:24 | W.MHC.F2F ---
Service Date Service Date: 05/04/25 Encounter Date of encounter: 05/04/25 Reasons for Services Signs and symptoms assessed: weankness, confusio Reason for senior living: medication management and teach disease management Reason for physical therapy: therapeutic exercises and ADL training Homebound: Leaving the home is medically contraindicated at this time without the asist of a device and/or another person due th the listed conditions above and below. Reason homebound: poor balance / fall risk and weakness related to hospital stay Homebound supporting statement: homebound due to fall risk, weakness from hospialization and therefore needs the assistance of another person Certification: Based on the above findings, I certify that this patient is confined to the home and needs intermittent senior living care, physical therapy and/or speech therapy, or continues to need occupational therapy. The patient is under my care, and I have initiated the establishment of the plan of care. The patient will be followed by a physician who will periodically review the plan of care. Time Spent With Patient Time: Total time managing care of this patient today ____ minutes.
[2025-05-04 11:59] LABS: Glucose, Whole Blood 191 mg/dL (60-115)
--- NOTE | 2025-05-04 13:44 | HO.WOUND ---
Wound Consult: Initial 85 yr old male admitted [place] [facility] [place] 05[place]02[place]25 - See progress notes and H&P for detailed history. Wound consult placed for right hip. Patient agreeable to assessment and photo documentation. Patient able to turn independently in bed for assessment. Right hip Etiology: abrasion Measurements: 0.4cm x 0.4cm x 0cm Wound Bed: irregular dry patch of skin - blanchable redness - does not appear to be pressure related - previous photo shows linear appearing scratch or abrasion now resolving Drainage / Odor: none Vesta wound: ? No Induration, Fluctuance or Warmth noted Pain: none Goals of Treatment: ? foam coccyx and left hip intact with blanchable redness- foams in place Recommendations: 1. Turn and Reposition every 2 hours and as needed for patient comfort. Use pillows or wedges to support off loading positions. 2. Off Load all bony prominences with use of pillows and heel boots if needed. Apply Preventative foams where needed. 3. Use waffle cushion when up to chair, limit sitting times to 1-2 hours 3. Monitor for incontinence and moisture control, use barrier creams when needed for prevention and treatment. 4. Provide adequate and supplemental nutrition. 5. Order or Continue low air loss mattress. 6. When applicable maintain blood glucose levels per Providers order. Re-consult wound care Nurse for wound deterioration or wound changes.
[2025-05-05 19:18] LABS: Levetiracetam Keppra 12.8 mcg/mL (10.0-40.0)
== END 2025-05-04 15:02 | disposition home health service (06) ==
LOC: HO.ED 05-02 03:07 → HO.EDOVER 05-02 03:09 → HO.S3 05-02 12:25
PROVIDERS: Admitting Provider Family Medicine; Emergency Provider Emergency Medicine; PCP Internal Medicine; Visit Provider Internal Medicine
DX: G93.41 Metabolic encephalopathy (principal); N39.0 Urinary tract infection, site not specified; R41.82 Altered mental status, unspecified; F01.50 Vascular dementia, unspecified severity, without behavioral disturbance, psychotic disturbance, mood disturbance, and anxiety; I48.91 Unspecified atrial fibrillation; I10 Essential (primary) hypertension; E11.9 Type 2 diabetes mellitus without complications; G40.909 Epilepsy, unspecified, not intractable, without status epilepticus; N40.1 Benign prostatic hyperplasia with lower urinary tract symptoms; G89.29 Other chronic pain; E03.9 Hypothyroidism, unspecified; Z79.01 Long term (current) use of anticoagulants; Z79.899 Other long term (current) drug therapy
CPT/HCPCS: 36415; 70450; 80048; 80177; 80307; 81001; 82947; 83605; 83735; 84100; 84439; 84443; 84484; 85025; 87086; 87088; 87186; 93005; 96361; 96365; 96366; 96367; 97162; 97166; 99221; 99285; J0744; J1953; J7120

== ENCOUNTER → 2025-05-01 22:52 | Outpatient (BNV) | payer MEDICARE, SELFPAY | PROVIDERS: Admitting Provider Family Medicine; Emergency Provider Emergency Medicine; PCP Internal Medicine; Visit Provider Internal Medicine Cardiovascular Disease | DX: I48.91 Unspecified atrial fibrillation (principal) | CPT/HCPCS: 93010 ==

== ENCOUNTER → 2025-05-02 00:12 | Outpatient (BNV) | payer MEDICARE, SELFPAY | PROVIDERS: Emergency Provider Emergency Medicine; PCP Internal Medicine; Visit Provider Student in an Organized Health Care Education/Training Program | DX: R41.82 Altered mental status, unspecified (principal) | CPT/HCPCS: 70450 ==

== ENCOUNTER → 2025-05-02 03:02 | Outpatient (BNV) | payer MEDICARE, SELFPAY | PROVIDERS: Admitting Provider Family Medicine; Emergency Provider Emergency Medicine; PCP Internal Medicine; Visit Provider Internal Medicine | DX: G93.41 Metabolic encephalopathy (principal); N39.0 Urinary tract infection, site not specified | CPT/HCPCS: 99222; 99232; 99239; 99499; G0180 ==